=== PATIENT | female | born 1950 | race African-American/Black ===

== ENCOUNTER 2016-06-03 11:37 | Inpatient (IN) | payer MEDICAID ==
[~2016-06-03] VITALS: Ht 162.6 cm; Wt 137.3 kg
[2016-06-03] VITALS (22 sets, daily range): BP systolic 117–242; BP diastolic 57–145; PULSE 76–104; RESP 12–19; TEMP 98.5–99.4; O2SAT 93–100
[~2016-06-03 11:37] MED LIST: ACET325 PO; ALBU25IPRN NEB; ASCO500 PO; ASPI81TA21 PO; ATOR40TA49 PO; AZIT250T74 PO; BISA10R PR; CLOP75 PO; DUONI NEB; FLEEENE3 PR; FOLI1 PO; FURO20 PO; GUAI600 PO; LACT12%T TOPICAL; LEVEMIR SQ; LOSA50TA PO; MAGN1SOL2 PO; METO25 PO; MILKSUS5 PO; NOVOLOGP2 SQ; OXYC5 PO; PROT40TA PO; SENN187 PO; SERT-132 PO; SILV1CRE59 TOP; TAB-TAB PO
[2016-06-03 11:56] LABS: MEAN CORPUSCULAR HGB CONC 29.8 % (32.0-36.0)
[2016-06-03] MEDS ORDERED: methylPREDNISolone SOD SUCC 125 MG/2 ML VIAL IVP ONE (12:00)
[2016-06-03] MEDS: RESP: ALBUTEROL 2.5 MG/IPRATROPIUM 0.5 MG NEB (SCH) INH ×5 (12:03→23:16)
--- NOTE | 2016-06-03 12:08 | PD ---
HPI Chief Complaint: Altered Mental Status Time Seen by Provider: 11:58 Travel History International Travel<30 days: No Contact w/Intl Traveler<30days: No Traveled to known affect area: No History of Present Illness HPI Patient is a 65-year-old female with a history of COPD, DM, CHF, PVD brought by EMS from assisted living facility for altered mental status along with productive cough. Patient has had a cough for 3-4 days. It is productive of thick brown sputum. Has history of COPD and multiple nebulizers have not assisted much. She is usually on 4 L oxygen by nasal cannula continuously and this has had increased to 6 L per the report. Patient reports subjective fevers denies chills, nausea and vomiting. She has diffuse anterior chest pain with cough only. She cannot categorize. She denies any dizziness or syncope. She reports that this morning she was confused and "talking gibberish" for about one hour at 8 AM, she contributes this to having too many nebulizers last evening. Per EMS and nursing staff reports she has been acting "differently "for about one day. 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 Patient denies any acute worsening of this at this time. PFSH Past Medical History Arthritis: Yes (RA) Asthma: No Autoimmune Disease: No Blood Disorders: No Anxiety: Yes Depression: Yes Heart Rhythm Problems: No Cancer: No Cardiac Catheterization: Yes (JUNE 2009) Cardiovascular Problems: Yes High Cholesterol: Yes Chemotherapy: No Chest Pain: Yes Congestive Heart Failure: Yes COPD: No Cerebrovascular Accident: No Coronary Artery Disease: Yes Diabetes: Yes Patient Takes Glucophage: No Diminished Hearing: No Diverticulitis: Yes Endocrine: Yes Gastrointestinal Disorders: Yes GERD: Yes Glaucoma: Yes Genitourinary: No Headaches: No Hepatitis: No Hiatal Hernia: No Hypertension: Yes Immune Disorder: Yes Implanted Vascular Access Dvce: No Kidney Stones: No Medical other: Yes (ARTHRITIS) Musculoskeletal: Yes Neurologic: No Psychiatric: Yes Reproductive: No Respiratory: Yes Migraines: No Myocardial Infarction: Yes Pneumonia: Yes Radiation Therapy: No Renal Failure: No Seizures: No Sickle Cell Disease: No Sleep Apnea: Yes Thyroid Disease: No Ulcer: No Menopausal: Yes Tubal Ligation: Yes Past Surgical History Abdominal Surgery: Yes AICD: No Appendectomy: No Arteriovenous Shunt: No Cardiac Surgery: Yes (STENTS RIGHT ILIAC ARTERY) Section: Yes Cholecystectomy: No Coronary Artery Bypass Graft: No Ear Surgery: No Endocrine Surgery: No Eye Surgery: Yes (CATARACTS) Genitourinary Surgery: No Gynecologic Surgery: Yes (PARTIAL HYSTERECTOMY, CSECTION) Hysterectomy: Yes (PARTIAL) Joint Replacement: No Neurologic Surgery: No Oral Surgery: No Pacemaker: No Thoracic Surgery: No Other Surgery: Yes (CYST REMOVED RT BREAST) Social History Alcohol Use: No Tobacco Use: No Substance Use: No Allergies-Medications (Allergen,Severity, Reaction): Coded Allergies: *MDRO Multi-Drug Resistant Organism (Unverified Adverse Reaction, Unknown , 06/03/16) MRSA PCR positive 06/28/2015 Reported Meds & Prescriptions Reported Meds & Active Scripts Active Reported Xanax (Alprazolam) 0.5 Mg Tab 0.5 Mg PO BID PRN Ferrous Sulfate 325 Mg Tab 325 Mg PO DAILY Novolog Inj (Insulin Aspart) 100 Unit/Ml Inj 2-12 Units SQ ACHS Sliding Scale: if 0-150=0 units, 151-200=2 units, 201-250=4 units, 251-300=8 units, 351-400=10 units, >400=12 units & call Vitamin C (Ascorbic Acid) 500 Mg Tab 500 Mg PO BID Lac-Hydrin (Lactic Acid (Ammonium Lactate)) 12% Lotn 1 Applic TOPICAL DAILY Apply to both lower extremities every evening shift Albuterol Neb (Albuterol Sulfate) 2.5 Mg/3 Ml Neb 2.5 Mg NEB Q2HR PRN Multi-Vitamin/Minerals (Multiple Vitamins W/ Minerals) 1 Tab Tab 1 Tab PO DAILY Oxycodone (Oxycodone HCl) 5 Mg Cap 5 Mg PO Q4H PRN Tylenol Extra Strength (Acetaminophen) 500 Mg Tab 1,000 Mg PO TID PRN Miralax Powder (Polyethylene Glycol 3350 Powder) 17 Gm Powd 17 Gm PO DAILY Mix and dissolve one measuring capful (17 grams) in water,juice,soda, coffee or tea Dulcolax Supp (Bisacodyl) 10 Mg Supp 10 Mg NV DIRECTED PRN Give if no results 1 day after Milk of Mag Citroma Liq (Magnesium Citrate) 300 Ml Liq 300 Ml PO DIRECTED PRN Give if no results 1 day after fleet enema Milk of Magnesia Liq (Magnesium Hydroxide) 400 Mg/5 Ml Susp 30 Ml PO DIRECTED PRN Enema Vdlov-Zi-Dmy (Sodium Phosphates) 1 Valentina Valentina 1 Applic NV DIRECTED PRN Give if no results 1 day after Dulcolax Supp Aspirin Adult Low Strength (Aspirin) 81 Mg Tabdr 81 Mg PO DAILY Atorvastatin (Atorvastatin Calcium) 40 Mg Tab 40 Mg PO HS Sertraline (Sertraline HCl) 50 Mg Tab 50 Mg PO DAILY Folate (Folic Acid) 1 Mg Tab 1 Mg PO DAILY Metoprolol Tartrate 25 Mg Tab 25 Mg PO BID Protonix Liq (Pantoprazole Sodium) 40 Mg Pkt 40 Mg PO DAILY Lasix (Furosemide) 20 Mg Tab 20 Mg PO BID Plavix (Clopidogrel Bisulfate) 75 Mg Tab 75 Mg PO DAILY Senna (Sennosides) 8.6 Mg Cap 17.2 Mg PO BID Losartan (Losartan Potassium) 50 Mg Tab 50 Mg PO BID Januvia (Sitagliptin Phosphate) 50 Mg Tab 50 Mg PO DAILY Levemir Inj (Insulin Detemir) 1,000 unit/ 10 ML Vial 45 Units SQ HS Do not mix with any other Insulin. Silvadene Topical (Silver Sulfadiazine) 1 % Cream 1 Applic TOPICAL DAILY Apply to rt lower leg after nss wash then cover w/dsd every evening shift Review of Systems Except as stated in HPI: all other systems reviewed are Neg Physical Exam Narrative GENERAL: Well-developed and well-nourished adult female in no acute distress. SKIN: Warm and dry. Good turgor without tenting. HEAD: Normocephalic and atraumatic. EYES: PERRL bilaterally, 5mm. EOMI bilaterally. Right amblyopia. No injection or icterus present. No proptosis. Lids without edema or erythema. ENT: Buccal mucosa pink and moist. Oropharynx free of erythema, tonsillar hypertrophy, masses, swelling, asymmetry and exudates. Uvula midline and airway patent. NECK: Supple, no meningeal signs. Trachea midline, no JVD. No cervical or facial lymphadenopathy. CARDIOVASCULAR: Regular rate and rhythm without murmurs, rubs, clicks or gallops. Dorsalis pedis pulses 2+ bilaterally. No pedal edema. RESPIRATORY: Coarse and diminished breath sounds diffusely with scattered rhonchi and wheezing, faint crackles auscultated bilaterally lower lung south. No distress or use of accessory muscles. Speaks in full sentences. No stridor, tripoding or drooling. GASTROINTESTINAL: Non-tender, non-distended. Normal bowel sounds all 4 quadrants. No masses or organomegaly present. MUSCULOSKELETAL: Right calf is atrophic and right foot contracture present. Patient has range of motion in the knee however. There is cirrhosis and chronic skin changes present on the right calf as well as 3 small open wounds without discharge or exudate, to do have some mild associated erythema and warmth without induration or fluctuance. Patient freely moving all four extremities spontaneously. Extremities without clubbing, cyanosis, or edema. NEUROLOGIC: CN II-XII grossly intact. Awake and alert and oriented. Motor grossly within normal limits. Normal speech. PSYCHIATRIC: Appropriate mood and affect; insight and judgment normal. Data Data Last Documented VS Vital Signs Date Time Temp Pulse Resp B/P Pulse Ox O2 Delivery O2 Flow Rate FiO2 06/03/16 13:33 98 35 06/03/16 12:20 96 19 157/73 Nasal Cannula 6 06/03/16 11:42 98.5 Orders Electrocardiogram (06/03/16 11:52) Ammonia (06/03/16 11:52) Complete Blood Count With Diff (06/03/16 11:52) Comprehensive Metabolic Panel (06/03/16 11:52) Prothrombin Time / Inr (Pt) (06/03/16 11:52) Act Partial Throm Time (Ptt) (06/03/16 11:52) Troponin I (06/03/16 11:52) Lactic Acid Sepsis Protocol (06/03/16 11:52) Urinalysis - C+S If Indicated (06/03/16 11:52) Blood Culture (06/03/16 11:52) Chest, Single Ap (06/03/16 11:52) Ct Brain W/O Iv Contrast(Rout) (06/03/16 11:52) Ecg Monitoring (06/03/16 11:52) Iv Access Insert/Monitor (06/03/16 11:52) Oximetry (06/03/16 11:52) B-Type Natriuretic Peptide (06/03/16 11:52) Magnesium (Mg) (06/03/16 11:52) Methylprednisolone So Succ Inj (Solumedr (06/03/16 12:00) Albuterol-Ipratropium Neb (Duoneb Neb) (06/03/16 12:00) Arterial Blood Gas (Abg) (06/03/16 12:14) Cefepime Inj (Maxipime Inj) (06/03/16 13:11) Azithromycin Inj (Zithromax Inj) (06/03/16 13:11) Urine Culture (06/03/16 14:10) Arterial Blood Gas (Abg) (06/03/16 14:27) Ascorbic Acid (Vitamin C) (06/03/16 21:00) Aspirin Ec (Ecotrin Ec) (06/03/16 15:00) Atorvastatin (Lipitor) (06/03/16 21:00) Clopidogrel (Plavix) (06/03/16 15:00) Ferrous Sulfate (Ferrous Sulfate) (06/04/16 09:00) Folic Acid (Folate) (06/04/16 09:00) Multivitamin Hematinic Therap (Theragran (06/04/16 09:00) Admit Order (Ed Use Only) (06/03/16 14:48) Ct Thorax/ Chest Wo Iv Contras (06/03/16 ) Etomidate Inj (Amidate Inj) (06/03/16 15:00) Succinylcholine Inj (Quelicin Inj) (06/03/16 15:00) Sodium Chloride 0.9% Flush (Ns Flush) (06/03/16 15:00) Restraints Non-Violent ELIZ.Q3H (06/03/16 14:49) Angela-Gastric Tube Insert/Mon (06/03/16 14:49) Etomidate Inj (Amidate Inj) (06/03/16 14:52) Admit To Inpatient (06/03/16 ) Code Status (06/03/16 14:50) Vital Signs (Adult) ELIZ.Q1H (06/03/16 14:50) Activity Bed Rest (06/03/16 14:50) ^ Elevate Head Of Bed (06/03/16 14:50) Neuro Checks . ORDERED (06/03/16 14:50) ^ Orogastric Tube (06/03/16 14:50) Pantoprazole Inj (Protonix Inj) (06/03/16 15:00) Albuterol-Ipratropium Neb (Duoneb Neb) (06/03/16 16:00) Albuterol-Ipratropium Neb (Duoneb Neb) (06/03/16 15:00) Complete Blood Count With Diff (06/04/16 04:00) Basic Metabolic Panel (Bmp) (06/04/16 04:00) Magnesium (Mg) (06/04/16 04:00) Sputum Culture And Gram Stain (06/03/16 14:50) Echo 2d Comp W/Dopp(Routine) (06/03/16 ) Heparin Inj (Heparin Inj) (06/03/16 15:00) Scd Bilateral/Knee High ELIZ.BID (06/03/16 14:50) ^ Initiate Protocol (06/03/16 14:50) ^ Instruction (06/03/16 14:50) [facility] (06[facility]03[facility]16 15[facility]) Chlorhexidine 2% Cloth (Chlorhexidine 2% (06/04/16 04:00) Chlorhexidine 2% Cloth (Chlorhexidine 2% (06/03/16 15:00) [facility]sa Pcr Surveillance (06/03/16 14:50) Inpatient Certification (06/03/16 ) Succinylcholine Inj (Quelicin Inj) (06/03/16 14:52) Labs Laboratory Tests Test 06/03/16 06/03/16 06/03/16 06/03/16 12:00 13:10 14:10 14:27 White Blood Count 14.0 TH/MM3 Red Blood Count 5.06 MIL/MM3 Hemoglobin 11.6 GM/DL Hematocrit 39.1 % Mean Corpuscular Volume 77.2 FL Mean Corpuscular Hemoglobin 23.0 PG Mean Corpuscular Hemoglobin 29.8 % Concent Red Cell Distribution Width 15.1 % Platelet Count 268 TH/MM3 Mean Platelet Volume 8.8 FL Neutrophils (%) (Auto) 89.6 % Lymphocytes (%) (Auto) 5.5 % Monocytes (%) (Auto) 4.4 % Eosinophils (%) (Auto) 0.1 % Basophils (%) (Auto) 0.4 % Neutrophils # (Auto) 12.5 TH/MM3 Lymphocytes # (Auto) 0.8 TH/MM3 Monocytes # (Auto) 0.6 TH/MM3 Eosinophils # (Auto) 0.0 TH/MM3 Basophils # (Auto) 0.0 TH/MM3 CBC Comment AUTO DIFF Differential Total Cells 100 Counted Neutrophils % (Manual) 87 % Band Neutrophils % 4 % Lymphocytes % 5 % Monocytes % 2 % Neutrophils # (Manual) 13.0 TH/MM3 Metamyelocytes 2 % Differential Comment AUTO DIFF CONFIRMED Platelet Estimate NORMAL Platelet Morphology Comment NORMAL Red Cell Morphology Comment NORMAL Prothrombin Time 10.5 SEC Prothromb Time International 1.0 RATIO Ratio Activated Partial 26.8 SEC Thromboplast Time Sodium Level 135 MEQ/L Potassium Level 4.5 MEQ/L Chloride Level 94 MEQ/L Carbon Dioxide Level 35.5 MEQ/L Anion Gap 6 MEQ/L Blood Urea Nitrogen 33 MG/DL Creatinine 1.62 MG/DL Estimat Glomerular Filtration 39 ML/MIN Rate Random Glucose 190 MG/DL Lactic Acid Level 0.7 mmol/L Calcium Level 8.6 MG/DL Magnesium Level 2.0 MG/DL Total Bilirubin 0.4 MG/DL Aspartate Amino Transf 12 U/L (AST/SGOT) Alanine Aminotransferase 20 U/L (ALT/SGPT) Alkaline Phosphatase 115 U/L Ammonia 20 MCMOL/L Troponin I LESS THAN 0.02 NG/ML B-Type Natriuretic Peptide 383 PG/ML Total Protein 7.9 GM/DL Albumin 3.1 GM/DL Urine Color YELLOW Urine Turbidity HAZY Urine pH 5.0 Urine Specific Crane 1.013 Urine Protein TRACE mg/dL Urine Glucose (UA) NEG mg/dL Urine Ketones NEG mg/dL Urine Occult Blood NEG Urine Nitrite NEG Urine Bilirubin NEG Urine Urobilinogen LESS THAN 2.0 MG/DL Urine Leukocyte Esterase TRACE Urine RBC 1 /hpf Urine WBC 2 /hpf Urine Squamous Epithelial 1 /hpf Cells Urine Transitional Epithelial <1 /hpf Cells Urine Amorphous Sediment OCC Urine Bacteria FEW /hpf Urine Hyaline Casts 5 /lpf Urine Mucus FEW /lpf Microscopic Urinalysis Comment CATH-CULTURE IND Blood Gas Puncture Site LT RADIAL Blood Gas Patient Temperature 98.6 Blood Gas HCO3 34 mmol/L Blood Gas Base Excess 6.0 mmol/L Blood Gas Oxygen Saturation 90 % Arterial Blood pH 7.21 Arterial Blood Partial 87 mmHg Pressure CO2 Arterial Blood Partial 72 mmHG Pressure O2 Arterial Blood Oxygen Content 14.8 Vol % Arterial Blood 1.0 % Carboxyhemoglobin Arterial Blood Methemoglobin 1.6 % Blood Gas Hemoglobin 11.7 G/DL Oxygen Delivery Device BiPAP IPAP15/[id number] Blood Gas Inspired Oxygen 45 % MDM Medical Decision Making Medical Screen Exam Complete: Yes Emergency Medical Condition: Yes Interpretation(s) EKG: Sinus rhythm rate of 93. Normal intervals and axis. She has biphasic and inverted T waves in leads V2 through V6 which is new, less than 1 mm. These 3 and aVF and inverted T waves which are chronic when compared to previous. Differential Diagnosis Pneumonia versus COPD exacerbation versus CHF exacerbation versus CVA/TIA versus cellulitis versus sepsis versus ACS Narrative Course Patient 65-year-old female with history of COPD, DM, CHF, peripheral vascular disease brought by EMS from assisted living facility staff reports of altered mental status occurring earlier this morning. Patient has had a productive cough for 3-4 days and they have had to increase her oxygen from 4-6 L/m by nasal cannula. The patient reports receiving too many nebulizers and this caused her to be confused and "speaking gibberish" for about one hour at 8 AM this morning. She denies any loss of consciousness or paresthesia or weakness or vision changes. She reports subjective fevers. She is an atrophic right lower extremity secondary to injury as a child and have chronic skin changes as well as open wounds. She is alert and oriented and has no increased work of breathing however her lung sounds are diminished, coarse rhonchi, wheezing rales at the lower bases bilaterally. Patient was given Solu-Medrol, DuoNeb's and ordered EKG, chest x-ray, CT brain and labs including lactic acid, blood cultures and BNP. Chest x-ray shows opacities in the bilateral mid to low lung south concerning for CHF however patient is no pedal edema and has CHF listed in the chart however she has ejection fraction 60-65% noted on echo in October 23, 2015. Given the patient's symptoms of productive cough and CBC revealing a WBC of 14 with a 89% neutrophilia and 4% bands with ANC 13,000 is most likely pneumonia. Confer with Dr. Oneill who also evaluated this patient and agrees, as she comes from a nursing facility patient was given cefepime and azithromycin. ABG showed pH of 7.167 with a PCO2 of 101 and PO2 of 88.5. Bicarbonate 35.2. Patient was started on BiPAP. Repeat ABG showed mild improvement with pH 7.211, PCO2 86.[address] Gamboa have been contacted regarding the patient and recommended CT of the chest and intubation. She was reevaluated and was increasingly somnolent when compared to previous exam. Dr. Oneill perform intubation, please refer to her note for procedure information. Diagnosis Primary Impression: Healthcare-associated pneumonia Additional Impression: Acute hypoxic and hypercarbic respiratory failure Admitting Information Admitting Physician Requests: Admit Condition: Serious Chito Rodriguez III Jun 03, 2016 12:08
[2016-06-03 12:26] LABS: AUTOMATED NEUTROPHIL # 12.5 TH/MM3 (1.8-7.7); BASOPHIL % 0.4 % (0.0-2.0); EOSINOPHIL % 0.1 % (0.0-4.0); HEMATOCRIT 39.1 % (35.0-46.0); LYMPH % 5.5 % (9.0-44.0); LYMPHOCYTE # 0.8 TH/MM3 (1.0-4.8); MEAN CELL VOLUME 77.2 FL (80.0-100.0); MONO % 4.4 % (0.0-8.0); NEUT % 89.6 % (16.0-70.0); PLATELET COUNT 268 TH/MM3 (150-450); RED BLOOD COUNT 5.06 MIL/MM3 (4.00-5.30); RED CELL DISTRIBUTION WIDTH 15.1 % (11.6-17.2)
[2016-06-03 12:27] LABS: HEMO FLAGS AUTO DIFF
[2016-06-03 12:33] LABS: APTT (PATIENT) 26.8 SEC (24.3-30.1); PROTHROMBIN TIME - PATIENT 10.5 SEC (9.8-11.6)
[2016-06-03] MEDS ORDERED: SENN8.6C PO (12:33)
[2016-06-03] MEDS ORDERED: DULC10SU3 PR (12:33)
[2016-06-03] MEDS ORDERED: OXYC1CAP PO (12:33)
[2016-06-03] MEDS ORDERED: PROTPAK PO (12:33)
[2016-06-03] MEDS ORDERED: ATOR40TA16 PO (12:33)
[2016-06-03] MEDS ORDERED: CITRSOL4 PO (12:33)
[2016-06-03] MEDS ORDERED: SERT-132 PO (12:33)
[2016-06-03] MEDS ORDERED: MIRA33504 PO (12:33)
[2016-06-03] MEDS ORDERED: ASPI1TAB91 PO (12:33)
[2016-06-03] MEDS ORDERED: SODIENE9 PR (12:33)
[2016-06-03] MEDS ORDERED: LOSA50TA PO (12:33)
[2016-06-03] MEDS ORDERED: ALBU0.08 NEB (12:33)
[2016-06-03] MEDS ORDERED: LEVEMIR SQ (12:33)
[2016-06-03] MEDS ORDERED: SILV1CRE20 TOPICAL (12:33)
[2016-06-03] MEDS ORDERED: ACET-703 PO (12:33)
[2016-06-03] MEDS ORDERED: PLAV75TA29 PO (12:33)
[2016-06-03] MEDS ORDERED: NOVOLOGSS SQ (12:33)
[2016-06-03] MEDS ORDERED: SITA50 PO (12:33)
[2016-06-03] MEDS ORDERED: FURO1TAB62 PO (12:33)
[2016-06-03] MEDS ORDERED: FOLI1TAB4 PO (12:33)
[2016-06-03] MEDS ORDERED: MULTTAB62 PO (12:33)
[2016-06-03] MEDS ORDERED: VITA500T PO (12:33)
[2016-06-03] MEDS ORDERED: METO25TA3 PO (12:33)
[2016-06-03] MEDS ORDERED: FERR325T PO (12:33)
[2016-06-03] MEDS ORDERED: MILKSUS PO (12:33)
[2016-06-03] MEDS ORDERED: LAC-12LO3 TOPICAL (12:33)
[2016-06-03] MEDS ORDERED: ALPR.5 PO (12:33)
--- NOTE | 2016-06-03 12:58 | RADRPT ---
EXAM DATE/TIME: 06/03/2016 12:19 [facility] COMPARISON: CHEST SINGLE AP, October 24, 2015, 2:05. INDICATIONS : Short of breath, unresponsive. MEDICAL HISTORY : Unresponsive SURGICAL HISTORY : Unresponsive ENCOUNTER: Initial ACUITY: 1 day PAIN SCORE: Non-responsive. LOCATION: Bilateral chest FINDINGS: There is cardiomegaly and increased density in the mid to lower lung zones suspect for airspace disea se most likely on the basis of congestive heart failure. Osseous structures are intact. Aortic calcif ication. CONCLUSION: Probable CHF. Tu White MD on June 03, 2016 at 12:56 Board Certified Radiologist. This report was verified electronically.
--- NOTE | 2016-06-03 13:01 | RADRPT ---
EXAM DATE/TIME: 06/03/2016 12:42 [facility] COMPARISON: CT BRAIN W/O CONTRAST, June 28, 2009, 1:21. INDICATIONS : Altered mental status. RADIATION DOSE: 42.66 CTDIvol (mGy) MEDICAL HISTORY : Cardiovascular disease. Hypertension. SURGICAL HISTORY : None. ENCOUNTER: Initial ACUITY: 1 day PAIN SCALE: Non-responsive LOCATION: cranial TECHNIQUE: Multiple contiguous axial images were obtained of the head. Using automated exposure control and adj ustment of the mA and/or kV according to patient size, radiation dose was kept as low as reasonably a chievable to obtain optimal diagnostic quality images. 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 No signs of acute infarct, hemorrhage, or mass. No fractur es. CONCLUSION: Remote right occipital infarct again noted. Tu White MD on June 03, 2016 at 12:59 Board Certified Radiologist. This report was verified electronically.
[2016-06-03 13:06] LABS: BANDS 4 % (0-6); METAMYELOCYTES 2 % (0-1); PLATELET ESTIMATE SMEAR NORMAL (NORMAL); PLATELET MORPHOLOGY NORMAL (NORMAL); POLYS (SEG NEUTROPHILS) 87 % (16-70); SCAN/DIFF AUTO DIFF CONFIRMED; WBC DIFF SAMPLE 100
[2016-06-03] MEDS ORDERED: CEFEPIME INJ 2,000 MG in SODIUM CHLORIDE 0.9% INJ 100 ML IV STA (13:11)
[2016-06-03] MEDS ORDERED: AZITHROMYCIN INJ 500 MG in SODIUM CHLOR 0.9% 250 ML INJ 250 ML IV STA (13:11)
[2016-06-03 13:46] LABS: ALT (GPT) 20 U/L (10-53); ANION GAP 6 MEQ/L (5-15); AST (GOT) 12 U/L (15-37); BICARBONATE 35.5 MEQ/L (21.0-32.0); BLOOD UREA NITROGEN 33 MG/DL (7-18); CHLORIDE 94 MEQ/L (98-107); GLOMERULAR FILTRATION RATE 39 ML/MIN (>89); POTASSIUM 4.5 MEQ/L (3.5-5.1); SODIUM (NA) 135 MEQ/L (136-145)
[2016-06-03 13:50] LABS: ALKALINE PHOSPHATASE 115 U/L (45-117); TOTAL BILIRUBIN ADULT 0.4 MG/DL (0.2-1.0)
[2016-06-03 14:32] LABS: BACTERIA, URINE FEW /hpf; BLOOD, URINE NEG (NEG); COMMENT (UR) CATH-CULTURE IND; CULTURE IF INDICATED CATH CULTURE IND; GLUCOSE,URINE NEG (NEG); HYALINE CAST, URINE 5 /lpf (RARE); KETONE, URINE NEG (NEG); MUCUS URINE FEW /lpf (OCC); NITRITE,URINE NEG (NEG); SQUAMOUS EPITHELIAL CELL URINE 1 /hpf (0-5); TRANSITIONAL EPI CELLS, URINE <1 /hpf; URINE COLOR YELLOW (YELLW/STRAW)
[2016-06-03 14:42] LABS: BLOOD GAS HCO3 34 mmol/L (22-26); BLOOD GAS METHEMOGLOBIN 1.6 % (0-2); BLOOD GAS O2 HGB SATURATION 90 % (90-100); BLOOD GAS OXYGEN CONTENT 14.8 Vol % (12.0-20.0); BLOOD GAS PCO2 87 mmHg (38-42); BLOOD GAS PO2 72 mmHG (61-120); BLOOD GAS TOTAL HGB 11.7 G/DL (12.0-16.0); CRITICAL VALUE YES; TEMP CORR TO 98.6
[2016-06-03 14:43] LABS: DRAW SITE LT RADIAL; FIO2 45 %; NUMBER OF ARTERIAL PUNCTURES 1; OXYGEN DEVICE BiPAP IPAP15/EPAP5; STAT NO; ULNAR PULSE PRESENT
[2016-06-03] MEDS ORDERED: SUCCINYLCHOLINE CHLORIDE 200 MG/10 ML VIAL ONE (14:52)
[2016-06-03] MEDS ORDERED: ETOMIDATE 40 MG/20 ML VIAL ONE (14:52)
[2016-06-03] MEDS ORDERED: DEXTROSE 50% IN WATER 50 ML VIAL(D50) IV PUSH PRN (15:00)
[2016-06-03] MEDS ORDERED: CHLORHEXIDINE GLUCONATE 2 % 1 PACK (2 CLOTHS) TOP PRN (15:00)
[2016-06-03] MEDS ORDERED: GLUCAGON 1 MG/ML VIAL OTHER PRN (15:00)
[2016-06-03] MEDS ORDERED: ETOMIDATE 20 MG/10 ML VIAL IVP ONE (15:00)
[2016-06-03] MEDS ORDERED: SUCCINYLCHOLINE CHLORIDE 200 MG/10 ML VIAL IVP ONE (15:00)
[2016-06-03] MEDS ORDERED: MISCELLANEOUS NURSING INFORMATION XX SCH (15:00)
[2016-06-03] MEDS ORDERED: SODIUM CHLORIDE 0.9% FLUSH 5 ML FLUSH IVF PRN (15:00)
[2016-06-03] MEDS ORDERED: VANCOMYCIN INJ 1,000 MG in SODIUM CHLOR 0.9% 250 ML INJ 250 ML IV ONE (15:00)
[2016-06-03] MEDS: PANTOPRAZOLE SODIUM 40 MG VIAL IV SCH (15:32)
[2016-06-03] MEDS: HEPARIN SODIUM - SQ 10,000 UNITS/ML VIAL SQ SCH ×2 (15:33→20:52)
[2016-06-03] MEDS: SODIUM CHLOR 0.9% 1000 ML INJ 1,000 ML IV SCH (15:33)
[2016-06-03] MEDS: fentaNYL DRIP 250 ML IV SCH (15:40)
[2016-06-03] MEDS: INSULIN NovoLIN REGULAR SUPPLEMENTAL SCALE SQ SCH ×2 (15:40→21:01)
[2016-06-03] MEDS ORDERED: MIDAZOLAM HCL 5 MG/ML VIAL (1 ML) ONE (15:47)
[2016-06-03] MEDS ORDERED: hydrALAZINE HCL 20 MG/ML VIAL IV PUSH PRN (16:00)
[2016-06-03] MEDS ORDERED: PROPOFOL 1000 MG/100 ML INJ 100 ML IV SCH (16:00)
[2016-06-03] MEDS: PIPERACIL-TAZO 3.375 GM PREMIX 50 ML IV SCH ×2 (16:00→20:49)
--- NOTE | 2016-06-03 16:13 | PD ---
Data Data Last Documented VS Vital Signs Date Time Temp Pulse Resp B/P Pulse Ox O2 Delivery O2 Flow Rate FiO2 06/03/16 13:33 98 35 06/03/16 12:20 96 19 157/73 Nasal Cannula 6 06/03/16 11:42 98.5 Orders Electrocardiogram (06/03/16 11:52) Ammonia (06/03/16 11:52) Complete Blood Count With Diff (06/03/16 11:52) Comprehensive Metabolic Panel (06/03/16 11:52) Prothrombin Time / Inr (Pt) (06/03/16 11:52) Act Partial Throm Time (Ptt) (06/03/16 11:52) Troponin I (06/03/16 11:52) Lactic Acid Sepsis Protocol (06/03/16 11:52) Urinalysis - C+S If Indicated (06/03/16 11:52) Blood Culture (06/03/16 11:52) Chest, Single Ap (06/03/16 11:52) Ct Brain W/O Iv Contrast(Rout) (06/03/16 11:52) Ecg Monitoring (06/03/16 11:52) Iv Access Insert/Monitor (06/03/16 11:52) Oximetry (06/03/16 11:52) B-Type Natriuretic Peptide (06/03/16 11:52) Magnesium (Mg) (06/03/16 11:52) Methylprednisolone So Succ Inj (Solumedr (06/03/16 12:00) Albuterol-Ipratropium Neb (Duoneb Neb) (06/03/16 12:00) Arterial Blood Gas (Abg) (06/03/16 12:14) Cefepime Inj (Maxipime Inj) (06/03/16 13:11) Azithromycin Inj (Zithromax Inj) (06/03/16 13:11) Urine Culture (06/03/16 14:10) Arterial Blood Gas (Abg) (06/03/16 14:27) Ascorbic Acid (Vitamin C) (06/03/16 21:00) Aspirin Ec (Ecotrin Ec) (06/03/16 15:00) Atorvastatin (Lipitor) (06/03/16 21:00) Clopidogrel (Plavix) (06/03/16 15:00) Ferrous Sulfate (Ferrous Sulfate) (06/04/16 09:00) Folic Acid (Folate) (06/04/16 09:00) Multivitamin Hematinic Therap (Theragran (06/04/16 09:00) Admit Order (Ed Use Only) (06/03/16 14:48) Ct Thorax/ Chest Wo Iv Contras (06/03/16 ) Etomidate Inj (Amidate Inj) (06/03/16 15:00) Succinylcholine Inj (Quelicin Inj) (06/03/16 15:00) Sodium Chloride 0.9% Flush (Ns Flush) (06/03/16 15:00) Restraints Non-Violent ELIZ.Q3H (06/03/16 14:49) Angela-Gastric Tube Insert/Mon (06/03/16 14:49) Etomidate Inj (Amidate Inj) (06/03/16 14:52) Admit To Inpatient (06/03/16 ) Code Status (06/03/16 14:50) Vital Signs (Adult) ELIZ.Q1H (06/03/16 14:50) Activity Bed Rest (06/03/16 14:50) ^ Elevate Head Of Bed (06/03/16 14:50) Neuro Checks . ORDERED (06/03/16 14:50) ^ Orogastric Tube (06/03/16 14:50) Pantoprazole Inj (Protonix Inj) (06/03/16 15:00) Albuterol-Ipratropium Neb (Duoneb Neb) (06/03/16 16:00) Albuterol-Ipratropium Neb (Duoneb Neb) (06/03/16 15:00) Complete Blood Count With Diff (06/04/16 04:00) Basic Metabolic Panel (Bmp) (06/04/16 04:00) Magnesium (Mg) (06/04/16 04:00) Sputum Culture And Gram Stain (06/03/16 14:50) Echo 2d Comp W/Dopp(Routine) (06/03/16 ) Heparin Inj (Heparin Inj) (06/03/16 15:00) Scd Bilateral/Knee High ELIZ.BID (06/03/16 14:50) ^ Initiate Protocol (06/03/16 14:50) ^ Instruction (06/03/16 14:50) [facility] [place] (06/03/16 15:00) Chlorhexidine 2% Cloth (Chlorhexidine 2% (06/04/16 04:00) Chlorhexidine 2% Cloth (Chlorhexidine 2% (06/03/16 15:00) [facility]sa Pcr Surveillance (06/03/16 14:50) Inpatient Certification (06/03/16 ) Succinylcholine Inj (Quelicin Inj) (06/03/16 14:52) Labs Laboratory Tests Test 06/03/16 06/03/16 06/03/16 06/03/16 12:00 13:10 14:10 14:27 White Blood Count 14.0 TH/MM3 Red Blood Count 5.06 MIL/MM3 Hemoglobin 11.6 GM/DL Hematocrit 39.1 % Mean Corpuscular Volume 77.2 FL Mean Corpuscular Hemoglobin 23.0 PG Mean Corpuscular Hemoglobin 29.8 % Concent Red Cell Distribution Width 15.1 % Platelet Count 268 TH/MM3 Mean Platelet Volume 8.8 FL Neutrophils (%) (Auto) 89.6 % Lymphocytes (%) (Auto) 5.5 % Monocytes (%) (Auto) 4.4 % Eosinophils (%) (Auto) 0.1 % Basophils (%) (Auto) 0.4 % Neutrophils # (Auto) 12.5 TH/MM3 Lymphocytes # (Auto) 0.8 TH/MM3 Monocytes # (Auto) 0.6 TH/MM3 Eosinophils # (Auto) 0.0 TH/MM3 Basophils # (Auto) 0.0 TH/MM3 CBC Comment AUTO DIFF Differential Total Cells 100 Counted Neutrophils % (Manual) 87 % Band Neutrophils % 4 % Lymphocytes % 5 % Monocytes % 2 % Neutrophils # (Manual) 13.0 TH/MM3 Metamyelocytes 2 % Differential Comment AUTO DIFF CONFIRMED Platelet Estimate NORMAL Platelet Morphology Comment NORMAL Red Cell Morphology Comment NORMAL Prothrombin Time 10.5 SEC Prothromb Time International 1.0 RATIO Ratio Activated Partial 26.8 SEC Thromboplast Time Sodium Level 135 MEQ/L Potassium Level 4.5 MEQ/L Chloride Level 94 MEQ/L Carbon Dioxide Level 35.5 MEQ/L Anion Gap 6 MEQ/L Blood Urea Nitrogen 33 MG/DL Creatinine 1.62 MG/DL Estimat Glomerular Filtration 39 ML/MIN Rate Random Glucose 190 MG/DL Lactic Acid Level 0.7 mmol/L Calcium Level 8.6 MG/DL Magnesium Level 2.0 MG/DL Total Bilirubin 0.4 MG/DL Aspartate Amino Transf 12 U/L (AST/SGOT) Alanine Aminotransferase 20 U/L (ALT/SGPT) Alkaline Phosphatase 115 U/L Ammonia 20 MCMOL/L Troponin I LESS THAN 0.02 NG/ML B-Type Natriuretic Peptide 383 PG/ML Total Protein 7.9 GM/DL Albumin 3.1 GM/DL Urine Color YELLOW Urine Turbidity HAZY Urine pH 5.0 Urine Specific Brewster 1.013 Urine Protein TRACE mg/dL Urine Glucose (UA) NEG mg/dL Urine Ketones NEG mg/dL Urine Occult Blood NEG Urine Nitrite NEG Urine Bilirubin NEG Urine Urobilinogen LESS THAN 2.0 MG/DL Urine Leukocyte Esterase TRACE Urine RBC 1 /hpf Urine WBC 2 /hpf Urine Squamous Epithelial 1 /hpf Cells Urine Transitional Epithelial <1 /hpf Cells Urine Amorphous Sediment OCC Urine Bacteria FEW /hpf Urine Hyaline Casts 5 /lpf Urine Mucus FEW /lpf Microscopic Urinalysis Comment CATH-CULTURE IND Blood Gas Puncture Site LT RADIAL Blood Gas Patient Temperature 98.6 Blood Gas HCO3 34 mmol/L Blood Gas Base Excess 6.0 mmol/L Blood Gas Oxygen Saturation 90 % Arterial Blood pH 7.21 Arterial Blood Partial 87 mmHg Pressure CO2 Arterial Blood Partial 72 mmHG Pressure O2 Arterial Blood Oxygen Content 14.8 Vol % Arterial Blood 1.0 % Carboxyhemoglobin Arterial Blood Methemoglobin 1.6 % Blood Gas Hemoglobin 11.7 G/DL Oxygen Delivery Device BiPAP IPAP15/[id number] Blood Gas Inspired Oxygen 45 % MDM Supervised Visit with MARLYN: Yes Narrative Course The history, exam, and medical decision-making in the associated midlevel provider note were completed with my assistance. I reviewed and agree with the findings presented. I attest that I had a [id number] encounter with the patient on the same day, and personally performed and documented my assessment and findings in the medical record. *My assessment and Findings: This is a 65-year-old female who was a history of COPD and congestive heart failure who presents to the emergency department with increasing shortness of breath and difficulty breathing over the past several days as well as some confusion reported by her care home. The patient awakens and answers questions but is somnolent. She was found to be quite hypercarbic. She was started on BiPAP. Repeat blood gas was improved but her mental status appeared worse. Decision was made to intubate the patient for safety. Patient has evidence of consolidation on chest x-ray consistent with likely pneumonia. She was given cefepime and azithromycin cover for healthcare associated pneumonia. Patient will be admitted to the intensive care unit for further management. Procedures Procedure Narrative After the risks and benefits were discussed the following procedure was performed: INTUBATION: The patient was put in optimal position for the procedure. Rapid sequence intubation was initiated by me using 30 milligrams of etomidate IV and 120 milligrams of succinylcholine IV. The patient was intubated with a 7.5 cuffed endotracheal tube. Tube placement was confirmed by visualization of the tube and balloon passing through the cords, capnometry and subsequent chest x- ray. Breath sounds were equal and well aerated bilaterally postintubation. No breath sounds over stomach. Patient tolerated procedure well. Diagnosis Primary Impression: Healthcare-associated pneumonia Additional Impression: Acute hypoxic and hypercarbic respiratory failure Condition: Serious Kathya Oneill MD Jun 03, 2016 16:13
[2016-06-03] MEDS ORDERED: MIDAZOLAM HCL 2 MG/2 ML VIAL IV PUSH ONE (16:30)
--- NOTE | 2016-06-03 16:55 | RADRPT ---
EXAM DATE/TIME: 06/03/2016 16:25 [facility] COMPARISON: CHEST SINGLE AP, June 03, 2016, 12:19. INDICATIONS : Post intubation. MEDICAL HISTORY : None. SURGICAL HISTORY : None. ENCOUNTER: Initial ACUITY: 1 day PAIN SCORE: Non-responsive. LOCATION: Bilateral chest FINDINGS: Basilar and perihilar predominant bilateral consolidation with probable small effusions again noted, not significantly changed. I don't see a pneumothorax. Patient is now intubated. Endotracheal tube tip is about 2.6 cm above the teresita. There is a nasogast kiah tube coursing into the stomach. CONCLUSION: 1. Endotracheal tube tip about 2.6 cm above the teresita. 2. Nasogastric tube courses into the stomach. 3. No significant change bilateral perihilar and basilar consolidation with small effusions. Chito Arellano MD on June 03, 2016 at 16:52 Board Certified Radiologist. This report was verified electronically.
[2016-06-03] MEDS ORDERED: BUMETANIDE INJ 1 MG/4 ML VIAL IV PUSH ONE (17:00)
--- NOTE | 2016-06-03 17:00 | MH ---
cc: CHARLI DOWNS M.D. DATE OF ADMISSION 06/03/2016 DATE OF 1950 HISTORY OF THE PRESENT ILLNESS the patient is 65-year-old female with past medical history of COPD, diabetes mellitus, peripheral vascular disease, rheumatoid arthritis, questionable CHF who was brought in to [facility] ED via EMS from assisted living facility for altered mental status and productive cough. The patient has had a history of productive cough for the past 3-4 days with thick brown phlegm. [facility] which was increased to 6 liters per report. No history of any chills or constitutional symptoms. This morning the patient was confused. ABG was performed on a BiPap which showed acute hypercapnic respiratory acidosis with a pH of 7.21, CO2 87, pAO2 72 and sat of 90%. The patient remained lethargic, unresponsive on a BiPap and she was subsequently intubated with etomidate, succinylcholine and placed on full mechanical ventilation. On arrival she had a blood pressure of 157/73 with a pulse of 96. Laboratory data significant for leukocytosis with a WBC of 14.0. Her CMP showed mild acute kidney injury with creatinine level of 1.62 and potassium of 4.5. Her lactic acid level measured at 0.7. BNP is 383. Due to altered mental status, CT scan of the brain was performed which showed remote right occipital infarct. A chest x-ray prior to intubation showed diffuse bilateral pulmonary infiltrates, cardiomegaly. In the ED she was given Solu-Medrol 125 mg IV push, bronchodilator treatment, cefepime and azithromycin. CT scan of the chest has been ordered by the ED staff. PAST MEDICAL HISTORY Significant for: 1. Rheumatoid arthritis. 2. COPD. 3. Diabetes mellitus. 4. Questionable congestive heart failure. Echocardiogram from October 2015 showed an EF of 60-65% without any regional wall motion abnormalities. 5. History of peripheral vascular disease. 6. Gastroesophageal reflux disease. 7. Obstructive sleep apnea. 8. Morbid obesity. 9. History of anxiety / depression. PAST SURGICAL HISTORY 1. Previous stent right iliac artery. 2. Previous cataract surgery. 3. Previous and partial hysterectomy. ALLERGIES NO KNOWN DRUG ALLERGIES. SOCIAL HISTORY [facility] resident. Nonsmoker, nondrinker. MEDICATIONS Reported medications include: 1. Levemir. 2. . 3. Losartan. 4. Senna. 5. Lasix. 6. Metoprolol. 7. Sertraline. 8. Aspirin. 9. Atorvastatin. 10. Vitamin C. 11. Ferrous sulfate. 12. Insulin. 13. Xanax p.r.n. FAMILY HISTORY Noncontributory. REVIEW OF SYSTEMS As per HPI. The rest of the review of systems limited secondary to patient's mental status. PHYSICAL EXAMINATION GENERAL: A 65-year-old female intubated for acute hypercapnic respiratory failure. VITAL SIGNS: Temperature of 98.5 pulse of 98, blood pressure prior to intubation 136/63 with a saturation of 97-100%. Vent setting assist control rate of 16, tidal volume 550, PEEP of 5, FIO2 50%. HEENT: Atraumatic, normocephalic. Pupils equal, round and reactive to light and accommodation. Extraocular muscles intact. Conjunctivae pink. Nonicteric sclerae. Oral mucosa within normal. NECK: Supple. No JVD, adenopathy or thyromegaly. Trachea midline. Orally intubated. CARDIOVASCULAR: Regular rate and rhythm. Normal S1-S2. No murmurs, rubs or gallops noted. LUNGS: Pulmonary exam bilateral equal air entry. No rales or wheezing. ABDOMEN: Soft, obese, nontender, no distension. Positive bowel sounds. EXTREMITIES: No cyanosis, clubbing or edema. NEUROLOGICAL: No focal sensory deficit. LABORATORY DATA Sodium of 135, potassium 4.5, chloride 94, CO2 35, BUN 33, creatinine 1.62, glucose of 190. Lactic acid 0.7. WBC 14, hemoglobin 11.6, hematocrit 39, platelet count 268. INR 1.0. PT 10.5, PTT 26.8. IMAGING CT scan of the brain showed remote right occipital infarct. X-ray showed bilateral pulmonary infiltrates. IMPRESSION 1. Acute hypercapnic respiratory failure requiring intubation. 2. COPD. 3. Leukocytosis. 4. Diffuse bilateral pulmonary infiltrates. Differential diagnosis fluid overload versus infectious process. 5. Mild acute kidney injury. 6. Hyperglycemia with underlying history of diabetes mellitus. 7. Peripheral vascular disease. 8. Hyponatremia. 9. Morbid obesity. 10. Hypertension. RECOMMENDATIONS 1. Place on fentanyl infusion for sedation and daily sedation vacation. Monitor neuro status closely. A CT scan of the brain in the ED showed remote right occipital infarct. 2. Continue with vent support and maintain sats above 92%. 3. Bronchodilators in the form of DuoNeb q.6h. Will initiate ICU vent bundle. 4. Check chest x-ray and ABG postintubation. 5. The patient is for CT scan of the chest without contrast for further evaluation of pulmonary parenchyma. 6. Monitor heart rate and blood pressure closely and maintain MAP greater 65 mmHg. 7. We will obtain a 2-D echo to evaluate LV function. She had an echo back in October of 2015 which showed an EF 60-65% without any regional wall motion abnormalities. 8. Continue with aspirin and Plavix and hold antihypertensive meds for now. 9. Monitor renal function Is and Os and electrolyte replacement as needed. 10. Gentle IV hydration. We will place on normal saline at 42 ml an hour. 11. Keep n.p.o. and place on Protonix 40 mg IV daily for GI prophylaxis. 12. Start nutrition support in the next 24 hours if remains intubated. 13. Continue with antibiotics in the form of Zosyn and azithromycin. In addition we will give vancomycin 1 gram x1 dose now. Of note the patient was given cefepime and azithromycin in the ED. 14. Follow-up on blood and urine cultures which were performed in the ED. We will check a sputum culture with gram stain and we will obtain a strep pneumoniae and Legionella urinary antigen. 15. We will send nasal washing to rule out influenza as well. 16. Monitor CBC and continue with ferrous sulfate, folic acid and multivitamins. 17. Place on sliding scale insulin with Accu-Cheks for glycemic control. 18. GI prophylaxis with Protonix 40 mg daily and DVT prophylaxis with SCDs and heparin subcu. 19. Further recommendations will be based on hospital course. 20. Critical care time 60 minutes excluding procedures. MD HEIDI Yang/ELANA /3:41 PM /4:29 PM
[2016-06-03 17:16] LABS: BLOOD GAS BASE EXCESS 4.3 mmol/L (-2-2); BLOOD GAS CARBOXYHEMOGLOBIN 0.9 % (0-4); BLOOD GAS HCO3 29 mmol/L (22-26); BLOOD GAS METHEMOGLOBIN 1.4 % (0-2); BLOOD GAS O2 HGB SATURATION 90 % (90-100); BLOOD GAS OXYGEN CONTENT 15.1 Vol % (12.0-20.0); BLOOD GAS PCO2 53 mmHg (38-42); BLOOD GAS PO2 66 mmHG (61-120); BLOOD GAS TOTAL HGB 11.9 G/DL (12.0-16.0); TEMP CORR TO 98.6
[2016-06-03 17:20] LABS: CRITICAL VALUE YES; DRAW SITE RT RADIAL; FIO2 50 %; NUMBER OF ARTERIAL PUNCTURES 1; OXYGEN DEVICE VENTILATOR; STAT NO; ULNAR PULSE PRESENT; VENT SETTINGS AC/16/550/PEEP5
[2016-06-03] MEDS: ASPIRIN EC 81 MG TABEC PO SCH (17:34)
[2016-06-03] MEDS: CLOPIDOGREL 75 MG TAB PO SCH (17:34)
[2016-06-03 19:54] LABS: BLOOD GAS BASE EXCESS 6.9 mmol/L (-2-2); BLOOD GAS CARBOXYHEMOGLOBIN 0.9 % (0-4); BLOOD GAS HCO3 35 mmol/L (22-26); BLOOD GAS METHEMOGLOBIN 1.7 % (0-2); BLOOD GAS O2 HGB SATURATION 91 % (90-100); BLOOD GAS OXYGEN CONTENT 15.7 Vol % (12.0-20.0); BLOOD GAS PCO2 101 mmHg (38-42); BLOOD GAS PO2 89 mmHG (61-120); BLOOD GAS TOTAL HGB 12.1 G/DL (12.0-16.0); TEMP CORR TO 98.6
[2016-06-03 19:55] LABS: CRITICAL VALUE YES; DRAW SITE RT RADIAL; FIO2 44 %; LITER FLOW 6 L/M; NUMBER OF ARTERIAL PUNCTURES 1; OXYGEN DEVICE NASAL CANNULA; STAT YES; ULNAR PULSE PRESENT
--- NOTE | 2016-06-03 19:55 | RADRPT ---
EXAM DATE/TIME: 06/03/2016 18:53 [facility] COMPARISON: No previous studies available for comparison. INDICATIONS : Cough and congestion. RADIATION DOSE: 19.88 CTDIvol (mGy) MEDICAL HISTORY : Sepsis. Congestive heart failure. SURGICAL HISTORY : None. ENCOUNTER: Initial ACUITY: 1 day PAIN SCALE: 5/10 LOCATION: Bilateral chest TECHNIQUE: Volumetric scanning of the chest was performed. Using automated exposure control and adjustment of t he mA and/or kV according to patient size, radiation dose was kept as low as reasonably achievable to obtain optimal diagnostic quality images. FINDINGS: There is patchy airspace consolidation of both mid and lower lungs, right greater than left and espec ially the right lower lobe. There is a tiny right pleural effusion. No pneumothorax. Limited noncontrast study without convincing evidence of hilar mass or lymphadenopathy. No media stinal adenopathy seen. There is biventricular enlargement of the heart and coronary artery calcifica tion. No acute bony abnormality demonstrated. CONCLUSION: Patchy pneumonia of both lung bases, especially the right lower lobe. Chito Arellano MD on June 03, 2016 at 19:52 Board Certified Radiologist. This report was verified electronically.
[2016-06-03] MEDS: ASCORBIC ACID 500 MG TAB PO SCH (20:48)
[2016-06-03] MEDS: ATORVASTATIN 40 MG TAB PO SCH (20:48)
[2016-06-03] MEDS: CHLORHEXIDINE 0.12% (ORAL KIT) 15 ML CUP MT SCH (20:49)
[2016-06-04] VITALS (19 sets, daily range): BP systolic 101–158; BP diastolic 46–70; PULSE 71–95; RESP 12–16; TEMP 98.1–99; O2SAT 91–99
[2016-06-04] MEDS: fentaNYL DRIP 250 ML IV SCH ×2 (00:26→10:21)
[2016-06-04] MEDS: RESP: ALBUTEROL 2.5 MG/IPRATROPIUM 0.5 MG NEB (SCH) INH ×6 (03:22→23:31)
[2016-06-04] MEDS: PIPERACIL-TAZO 3.375 GM PREMIX 50 ML IV SCH ×4 (03:38→20:07)
[2016-06-04] MEDS: CHLORHEXIDINE GLUCONATE 2 % 1 PACK (2 CLOTHS) TOP SCH ×2 (03:43→20:07)
[2016-06-04] MEDS: INSULIN NovoLIN REGULAR SUPPLEMENTAL SCALE SQ SCH ×4 (03:43→20:06)
[2016-06-04 04:44] LABS: AUTOMATED NEUTROPHIL # 8.8 TH/MM3 (1.8-7.7); BASOPHIL % 0.3 % (0.0-2.0); HEMATOCRIT 34.8 % (35.0-46.0); LYMPH % 10.5 % (9.0-44.0); LYMPHOCYTE # 1.2 TH/MM3 (1.0-4.8); MEAN CELL VOLUME 75.9 FL (80.0-100.0); MEAN CORPUSCULAR HEMOGLOBIN 23.2 PG (27.0-34.0); MEAN CORPUSCULAR HGB CONC 30.5 % (32.0-36.0); MONO % 9.1 % (0.0-8.0); NEUT % 80.1 % (16.0-70.0); PLATELET COUNT 256 TH/MM3 (150-450); RED BLOOD COUNT 4.59 MIL/MM3 (4.00-5.30)
[2016-06-04 04:45] LABS: HEMO FLAGS AUTO DIFF
[2016-06-04 05:08] LABS: MAGNESIUM 1.9 MG/DL (1.5-2.5); POTASSIUM 4.3 MEQ/L (3.5-5.1)
[2016-06-04] MEDS: HEPARIN SODIUM - SQ 10,000 UNITS/ML VIAL SQ SCH ×3 (05:41→20:07)
[2016-06-04 08:25] LABS: PLATELET ESTIMATE SMEAR NORMAL (NORMAL); PLATELET MORPHOLOGY NORMAL (NORMAL); SCAN/DIFF AUTO DIFF CONFIRMED
--- NOTE | 2016-06-04 08:56 | HHI.CCPN ---
Subjective Remarks/Hospital Course Patient is 65-year-old female with past medical history of COPD, diabetes mellitus, peripheral vascular disease, rheumatoid arthritis, questionable CHF who was brought in to [facility] ED via EMS from assisted living facility for altered mental status and productive cough. The patient has had a history of productive cough for the past 3-4 days with thick brown phlegm. She is usually on [facility] lit[facility] the [facility] continuously which was increased to 6 liters per report. No history of any chills or constitutional symptoms. This morning the patient was confused. ABG was performed on a BiPap which showed acute hypercapnic respiratory acidosis with a pH of 7.21, CO2 87, pAO2 72 and sat of 90%. The patient remained lethargic, unresponsive on a BiPap and she was subsequently intubated with etomidate, succinylcholine and placed on full mechanical ventilation. On arrival she had a blood pressure of 157/73 with a pulse of 96. Laboratory data significant for leukocytosis with a WBC of 14.0. Her CMP showed mild acute kidney injury with creatinine level of 1.62 and potassium of 4.5. Her lactic acid level measured at 0.7. BNP is 383. Due to altered mental status, CT scan of the brain was performed which showed remote right occipital infarct. A chest x-ray prior to intubation showed diffuse bilateral pulmonary infiltrates, cardiomegaly. In the ED she was given Solu-Medrol 125 mg IV push, bronchodilator treatment, cefepime and azithromycin. CT scan of the chest has been ordered by the ED staff. 06/04 No acute events overnight. Sedated with Fentanyl and intubated. CT chest from yesterday showed pneumonia. Afebrile. Objective Vital Signs Date Time Temp Pulse Resp B/P Pulse Ox O2 Delivery O2 Flow Rate FiO2 06/04/16 06:00 80 06/04/16 04:04 94 50 06/04/16 04:00 98.6 12 158/70 06/03/16 17:30 Ventilator 06/03/16 12:20 6.00 Intake and Output 06/03/16 06/03/16 06/04/16 08:00 16:00 00:00 Intake Total 290 ml Output Total 1150 ml Balance -860 ml Result Diagram: 06/04/16 0407 06/04/16 0407 Other Results Laboratory Tests Test 06/03/16 06/03/16 06/03/16 06/03/16 12:00 12:54 13:10 14:10 White Blood Count 14.0 TH/MM3 Red Blood Count 5.06 MIL/MM3 Hemoglobin 11.6 GM/DL Hematocrit 39.1 % Mean Corpuscular Volume 77.2 FL Mean Corpuscular Hemoglobin 23.0 PG Mean Corpuscular Hemoglobin 29.8 % Concent Red Cell Distribution Width 15.1 % Platelet Count 268 TH/MM3 Mean Platelet Volume 8.8 FL Neutrophils (%) (Auto) 89.6 % Lymphocytes (%) (Auto) 5.5 % Monocytes (%) (Auto) 4.4 % Eosinophils (%) (Auto) 0.1 % Basophils (%) (Auto) 0.4 % Neutrophils # (Auto) 12.5 TH/MM3 Lymphocytes # (Auto) 0.8 TH/MM3 Monocytes # (Auto) 0.6 TH/MM3 Eosinophils # (Auto) 0.0 TH/MM3 Basophils # (Auto) 0.0 TH/MM3 CBC Comment AUTO DIFF Differential Total Cells 100 Counted Neutrophils % (Manual) 87 % Band Neutrophils % 4 % Lymphocytes % 5 % Monocytes % 2 % Neutrophils # (Manual) 13.0 TH/MM3 Metamyelocytes 2 % Differential Comment AUTO DIFF CONFIRMED Platelet Estimate NORMAL Platelet Morphology Comment NORMAL Red Cell Morphology Comment NORMAL Prothrombin Time 10.5 SEC Prothromb Time International 1.0 RATIO Ratio Activated Partial 26.8 SEC Thromboplast Time Blood Gas Puncture Site RT RADIAL Blood Gas Patient Temperature 98.6 Blood Gas HCO3 35 mmol/L Blood Gas Base Excess 6.9 mmol/L Blood Gas Oxygen Saturation 91 % Arterial Blood pH 7.17 Arterial Blood Partial 101 mmHg Pressure CO2 Arterial Blood Partial 89 mmHG Pressure O2 Arterial Blood Oxygen Content 15.7 Vol % Arterial Blood 0.9 % Carboxyhemoglobin Arterial Blood Methemoglobin 1.7 % Blood Gas Hemoglobin 12.1 G/DL Oxygen Delivery Device NASAL CANNULA Blood Gas Liter Flow 6 L/M Blood Gas Inspired Oxygen 44 % Sodium Level 135 MEQ/L Potassium Level 4.5 MEQ/L Chloride Level 94 MEQ/L Carbon Dioxide Level 35.5 MEQ/L Anion Gap 6 MEQ/L Blood Urea Nitrogen 33 MG/DL Creatinine 1.62 MG/DL Estimat Glomerular Filtration 39 ML/MIN Rate Random Glucose 190 MG/DL Lactic Acid Level 0.7 mmol/L Calcium Level 8.6 MG/DL Magnesium Level 2.0 MG/DL Total Bilirubin 0.4 MG/DL Aspartate Amino Transf 12 U/L (AST/SGOT) Alanine Aminotransferase 20 U/L (ALT/SGPT) Alkaline Phosphatase 115 U/L Ammonia 20 MCMOL/L Troponin I LESS THAN 0.02 NG/ML B-Type Natriuretic Peptide 383 PG/ML Total Protein 7.9 GM/DL Albumin 3.1 GM/DL Urine Color YELLOW Urine Turbidity HAZY Urine pH 5.0 Urine Specific [place] 1.013 Urine Protein TRACE mg/dL Urine Glucose (UA) NEG mg/dL Urine Ketones NEG mg/dL Urine Occult Blood NEG Urine Nitrite NEG Urine Bilirubin NEG Urine Urobilinogen LESS THAN 2.0 MG/DL Urine Leukocyte Esterase TRACE Urine RBC 1 /hpf Urine WBC 2 /hpf Urine Squamous Epithelial 1 /hpf Cells Urine Transitional Epithelial <1 /hpf Cells Urine Amorphous Sediment OCC Urine Bacteria FEW /hpf Urine Hyaline Casts 5 /lpf Urine Mucus FEW /lpf Microscopic Urinalysis Comment CATH-CULTURE IND Test 06/03/16 06/03/16 06/03/16 06/04/16 14:27 17:11 19:15 04:07 Blood Gas Puncture Site LT RADIAL RT RADIAL Blood Gas Patient Temperature 98.6 98.6 Blood Gas HCO3 34 mmol/L 29 mmol/L Blood Gas Base Excess 6.0 mmol/L 4.3 mmol/L Blood Gas Oxygen Saturation 90 % 90 % Arterial Blood pH 7.21 7.36 Arterial Blood Partial 87 mmHg 53 mmHg Pressure CO2 Arterial Blood Partial 72 mmHG 66 mmHG Pressure O2 Arterial Blood Oxygen Content 14.8 Vol % 15.1 Vol % Arterial Blood 1.0 % 0.9 % Carboxyhemoglobin Arterial Blood Methemoglobin 1.6 % 1.4 % Blood Gas Hemoglobin 11.7 G/DL 11.9 G/DL Oxygen Delivery Device BiPAP VENTILATOR [id number] Blood Gas Inspired Oxygen 45 % 50 % Blood Gas Ventilator Setting [id number] Nasal Screen MRSA (PCR) POSITIVE White Blood Count 11.0 TH/MM3 Red Blood Count 4.59 MIL/MM3 Hemoglobin 10.6 GM/DL Hematocrit 34.8 % Mean Corpuscular Volume 75.9 FL Mean Corpuscular Hemoglobin 23.2 PG Mean Corpuscular Hemoglobin 30.5 % Concent Red Cell Distribution Width 15.0 % Platelet Count 256 TH/MM3 Mean Platelet Volume 9.1 FL Neutrophils (%) (Auto) 80.1 % Lymphocytes (%) (Auto) 10.5 % Monocytes (%) (Auto) 9.1 % Eosinophils (%) (Auto) 0.0 % Basophils (%) (Auto) 0.3 % Neutrophils # (Auto) 8.8 TH/MM3 Lymphocytes # (Auto) 1.2 TH/MM3 Monocytes # (Auto) 1.0 TH/MM3 Eosinophils # (Auto) 0.0 TH/MM3 Basophils # (Auto) 0.0 TH/MM3 CBC Comment AUTO DIFF Differential Comment AUTO DIFF CONFIRMED Platelet Estimate NORMAL Platelet Morphology Comment NORMAL Sodium Level 137 MEQ/L Potassium Level 4.3 MEQ/L Chloride Level 97 MEQ/L Carbon Dioxide Level 33.0 MEQ/L Anion Gap 7 MEQ/L Blood Urea Nitrogen 35 MG/DL Creatinine 1.35 MG/DL Estimat Glomerular Filtration 48 ML/MIN Rate Random Glucose 195 MG/DL Calcium Level 8.0 MG/DL Magnesium Level 1.9 MG/DL Imaging Last Impressions Head CT 06/03/16 1152 Signed Impressions: Service Date/Time: Friday, June 03, 2016 12:42 - CONCLUSION: Remote right occipital infarct again noted. Tu White MD Chest X-Ray 06/03/16 1152 Signed Impressions: Service Date/Time: Friday, June 03, 2016 12:19 - CONCLUSION: Probable CHF. Tu White MD Chest CT 06/03/16 0000 Signed Impressions: Service Date/Time: Friday, June 03, 2016 18:53 - CONCLUSION: Patchy pneumonia of both lung bases, especially the right lower lobe. Chito Arellano MD Objective Remarks GENERAL: Patient is 65yo intubated and sedated SKIN: Warm and dry. HEAD: Normocephalic. EYES: No scleral icterus. No injection or drainage. NECK: Supple, trachea midline. No JVD or lymphadenopathy. CARDIOVASCULAR: Regular rate and rhythm without murmurs, gallops, or rubs. RESPIRATORY: Breath sounds equal bilaterally. No accessory muscle use. GASTROINTESTINAL: Abdomen soft, non-tender, nondistended. MUSCULOSKELETAL: No cyanosis, or edema. Neuro: Sedated. A/P Assessment and Plan 1. Acute hypercapnic respiratory failure requiring intubation. 2. COPD. 3. Leukocytosis... trending down 4. Pneumonia 5. Mild acute kidney injury. 6. Hyperglycemia with underlying history of diabetes mellitus. 7. Peripheral vascular disease. 8. Morbid obesity. 9. Hypertension. Plan Neuro: On fentanyl infusion for sedation. Daily sedation vacation. Monitor neuro status closely. CT brain showed remote right occipital infarct. Pulm: Continue with vent support and maintain sats above 92%. Bronchodilators, ICU vent bundle. Start SBT daily as margaret CT chest showed pneumonia at bases R>L. CV: Monitor HR and BP maintain MAP>65 mmHg. Lactic acid: 0.7 For 2-D echo to evaluate LV function. Echo from October of 2015 : EF 60-65% without RWMA Continue with aspirin and Plavix. Restart Lopressor 25mg PO Q12. : Monitor renal function Is and Os and electrolyte replacement as needed. On NS 42 ml an hour. Renal function improving with Cr: 1.35 from 1.62 GI: On Protonix 40 mg IV daily for GI prophylaxis. Start nutrition support today if remains intubated. ID: Continue with abx( Zosyn and azithromycin) vanco 1 gram x1 dose 1/2 Given cefepime and azithromycin in the ED. Follow-up on blood and urine cultures Check sputum culture and nasal washing to rule out influenza strep pneumoniae and Legionella urinary antigen negative. Heme: Monitor CBC and continue with ferrous sulfate, folic acid and multivitamins. Endo: Increase SSI ( Medium) with Accu-Cheks for glycemic control. GI prophylaxis with Protonix 40 mg daily and DVT prophylaxis with SCDs and heparin subcu. CCT 30 mins Lluvia Gamboa MD Jun 04, 2016 08:56
[2016-06-04] MEDS: FOLIC ACID 1 MG TAB PO SCH (08:59)
[2016-06-04] MEDS: PANTOPRAZOLE SODIUM 40 MG VIAL IV SCH (08:59)
[2016-06-04] MEDS: ASCORBIC ACID 500 MG TAB PO SCH ×2 (08:59→20:06)
[2016-06-04] MEDS: ASPIRIN EC 81 MG TABEC PO SCH (09:00)
[2016-06-04] MEDS: FERROUS SULFATE 325 MG (65 MG ELEMENTAL IRON) TAB PO SCH (09:00)
[2016-06-04] MEDS ORDERED: DEXTROSE 50% IN WATER 50 ML VIAL(D50) IV PUSH PRN (09:00)
[2016-06-04] MEDS: CLOPIDOGREL 75 MG TAB PO SCH (09:00)
[2016-06-04] MEDS: MULTIVITAMIN HEMATINIC THERAPEUTIC TAB PO SCH (09:00)
[2016-06-04] MEDS ORDERED: GLUCAGON 1 MG/ML VIAL OTHER PRN (09:00)
[2016-06-04] MEDS: CHLORHEXIDINE 0.12% (ORAL KIT) 15 ML CUP MT SCH ×2 (09:00→20:06)
[2016-06-04] MEDS: METOPROLOL TARTRATE 25 MG TAB PO SCH ×2 (10:21→19:21)
[2016-06-04 13:50] LABS: BLOOD GAS CARBOXYHEMOGLOBIN 1.2 % (0-4); BLOOD GAS HCO3 31 mmol/L (22-26); BLOOD GAS METHEMOGLOBIN 1.1 % (0-2); BLOOD GAS O2 HGB SATURATION 91 % (90-100); BLOOD GAS OXYGEN CONTENT 14.1 Vol % (12.0-20.0); BLOOD GAS PCO2 58 mmHg (38-42); BLOOD GAS PO2 72 mmHg (61-120); CRITICAL VALUE YES; OXYGEN DEVICE VENTILATOR; TEMP CORR TO 98.6; VENT SETTINGS CPAP 5/10PS
[2016-06-04 13:51] LABS: DRAW SITE RT RADIAL; FIO2 40 %; NUMBER OF ARTERIAL PUNCTURES 2; STAT NO; ULNAR PULSE PRESENT
[2016-06-04] MEDS: AZITHROMYCIN INJ 500 MG in SODIUM CHLOR 0.9% 250 ML INJ 250 ML IV SCH (14:11)
[2016-06-04] MEDS: SODIUM CHLOR 0.9% 1000 ML INJ 1,000 ML IV SCH (16:37)
--- NOTE | 2016-06-04 19:03 | EC ---
Study Study Date:06/04/2016 STUDY CONCLUSIONS SUMMARY - Procedure narrative: Transthoracic echocardiography. Image quality was poor. The study was technically limited due to poor acoustic window availability. Scanning was performed from the parasternal, apical, and subcostal acoustic windows. - Left ventricle: Limited views, ejection fraction is probably normal. Can not determine wall motion abnormalities based on this study. Doppler parameters are consistent with abnormal left ventricular relaxation (grade 1 diastolic dysfunction). - Mitral valve: Mildly calcified annulus. - Tricuspid valve: Mild regurgitation. - Pulmonary arteries: PA peak pressure: 62mm Hg (S). If LV function is below 40, please consider prescribing an ACEI or ARB or document rationale for non-use. PROCEDURE DATA STUDY STATUS: Elective. Procedure: Transthoracic echocardiography. Image quality was poor. The study was technically limited due to poor acoustic window availability. Scanning was performed from the parasternal, apical, and subcostal acoustic windows. Study completion: The patient tolerated the procedure well. Transthoracic echocardiography. M-mode, complete 2D, complete spectral Doppler, and color Doppler. Height: Height: 64in. Weight: Weight: 219.5lb. Body mass index: BMI: 37.8kg/m^2. Body surface area: BSA: 2.04m^2. Patient status: Inpatient. CARDIAC ANATOMY LEFT VENTRICLE: Limited views, ejection fraction is probably normal. Can not determine wall motion abnormalities based on this study. Doppler parameters are consistent with abnormal left ventricular relaxation (grade 1 diastolic dysfunction). AORTIC VALVE: The valve appears to be grossly normal. Doppler: There was no stenosis. No significant regurgitation. MITRAL VALVE: Mildly calcified annulus. Doppler: There was no evidence for stenosis. No significant regurgitation. Peak gradient: 3mm Hg (D). PULMONIC VALVE: Not visualized. TRICUSPID VALVE: The valve appears to be grossly normal. Doppler: There was no evidence for stenosis. Mild regurgitation. Patient weight: 219.5lb _Ejection fraction:_ 65-75% _Fractional shortening:_ 32% up to 5Kg 5-11.5Kg 11.6-22.9Kg 23-45Kg 45-57Kg Aortic Root 7-13 <17 13-22 17-27 17-27 LA diam 6-13 <23 24-38 33-47 37-40 RVID 10-17 7-15 7-15 7-18 8-17 LVIDd 12-22 <32 24-38 33-47 37-40 LVPW 2-4 3-6 5-7 6-8 7-8 IVS 2-4 3-6 5-7 6-8 7-8 BASIC MEASUREMENTS ADULT NORMAL Left ventricle LV internal dimension, ED, chordal level, 43.8 mm 43-52 PLAX LV internal dimension, ES, chordal level, 31.6 mm 23-38 PLAX Fractional shortening, chordal level, PLAX *28 % >29 LV posterior wall thickness, ED 9.35 mm IVS/LVPW ratio, ED 1 <1.3 Ventricular septum Septal thickness, ED 9.31 mm Aortic valve Leaflet separation *13 mm 15- Aorta Root diameter, ED 29 mm BASIC MEASUREMENTS ADULT NORMAL Aortic valve Leaflet separation *13 mm 15-26 DOPPLER MEASUREMENTS ADULT NORMAL Main pulmonary artery Pressure, S *62 mm Hg =30 Mitral valve Peak E-wave velocity 87.9 cm/s Peak A-wave velocity 130 cm/s Deceleration time *236 ms 150-230 Peak gradient, D 3 mm Hg Peak E/A ratio 0.7 Tricuspid valve Regurgitant peak velocity 366 cm/s Peak RV-RA gradient, S 54 mm Hg Maximal regurgitant velocity 366 cm/s Systemic veins Estimated CVP 10 mm Hg Right ventricle RV pressure, S *64 mm Hg <30 Pulmonic valve Peak velocity, S 66.1 cm/s LEGEND: Mean values are shown as u=mean value. Asterisk (*) dsouza values outside specified normal range. Prepared and signed by Jani Mayorga [id number]
[2016-06-04] MEDS: ATORVASTATIN 40 MG TAB PO SCH (20:06)
[2016-06-05] VITALS (16 sets, daily range): BP systolic 88–136; BP diastolic 55–69; PULSE 74–105; RESP 14–16; TEMP 98.5–99.3; O2SAT 93–97
--- NOTE | 2016-06-05 00:02 | EKG ---
Date Performed: 06/03/2016 Time Performed: 11:59:34 PTAGE: 65 years EKG: Sinus rhythm POSSIBLE LEFT ATRIAL ENLARGEMENT ST DEVIATION AND MODERATE T-WAVE ABNORMALITY, CONSIDER ANTERIOR ISC HEMIA ABNORMAL ECG PREVIOUS TRACING : 10/23/2015 04.13 DOCTOR: Julio Cesar Alvarez Interpretating Date/Time 06/04/2016 23:52:10
[2016-06-05] MEDS: INSULIN NovoLIN REGULAR SUPPLEMENTAL SCALE SQ SCH ×4 (02:37→20:09)
[2016-06-05] MEDS: RESP: ALBUTEROL 2.5 MG/IPRATROPIUM 0.5 MG NEB (SCH) INH ×6 (02:54→23:55)
[2016-06-05] MEDS: PIPERACIL-TAZO 3.375 GM PREMIX 50 ML IV SCH ×4 (02:59→20:09)
[2016-06-05] MEDS: HEPARIN SODIUM - SQ 10,000 UNITS/ML VIAL SQ SCH ×3 (06:20→20:09)
[2016-06-05 07:11] LABS: BICARBONATE 29.3 MEQ/L (21.0-32.0); POTASSIUM 3.9 MEQ/L (3.5-5.1)
[2016-06-05] MEDS: METOPROLOL TARTRATE 25 MG TAB PO SCH ×2 (09:00→20:10)
[2016-06-05 09:32] LABS: AUTOMATED NEUTROPHIL # 7.9 TH/MM3 (1.8-7.7); BASOPHIL % 0.4 % (0.0-2.0); EOSINOPHIL # 0.1 TH/MM3 (0-0.4); EOSINOPHIL % 0.6 % (0.0-4.0); HEMATOCRIT 32.5 % (35.0-46.0); LYMPH % 14.9 % (9.0-44.0); LYMPHOCYTE # 1.7 TH/MM3 (1.0-4.8); MEAN CELL VOLUME 75.3 FL (80.0-100.0); MEAN CORPUSCULAR HEMOGLOBIN 22.8 PG (27.0-34.0); MEAN CORPUSCULAR HGB CONC 30.3 % (32.0-36.0); MONO % 13.3 % (0.0-8.0); NEUT % 70.8 % (16.0-70.0); PLATELET COUNT 251 TH/MM3 (150-450); RED BLOOD COUNT 4.32 MIL/MM3 (4.00-5.30); RED CELL DISTRIBUTION WIDTH 15.1 % (11.6-17.2); WHITE BLOOD COUNT 11.1 TH/MM3 (4.0-11.0)
[2016-06-05] MEDS: FOLIC ACID 1 MG TAB PO SCH (09:33)
[2016-06-05] MEDS: ASCORBIC ACID 500 MG TAB PO SCH ×2 (09:33→20:10)
[2016-06-05] MEDS: PANTOPRAZOLE SODIUM 40 MG VIAL IV SCH (09:33)
[2016-06-05] MEDS: MULTIVITAMIN HEMATINIC THERAPEUTIC TAB PO SCH (09:33)
[2016-06-05] MEDS: CLOPIDOGREL 75 MG TAB PO SCH (09:33)
[2016-06-05] MEDS: FERROUS SULFATE 325 MG (65 MG ELEMENTAL IRON) TAB PO SCH (09:33)
[2016-06-05] MEDS: ASPIRIN EC 81 MG TABEC PO SCH (09:34)
[2016-06-05] MEDS: CHLORHEXIDINE 0.12% (ORAL KIT) 15 ML CUP MT SCH ×2 (09:34→20:09)
[2016-06-05 09:40] LABS: HEMO FLAGS AUTO DIFF
[2016-06-05 10:13] LABS: SCAN/DIFF AUTO DIFF CONFIRMED
[2016-06-05] MEDS: AZITHROMYCIN INJ 500 MG in SODIUM CHLOR 0.9% 250 ML INJ 250 ML IV SCH (13:19)
[2016-06-05] MEDS: SODIUM CHLOR 0.9% 1000 ML INJ 1,000 ML IV SCH ×2 (14:38→20:10)
--- NOTE | 2016-06-05 16:05 | HHI.CCPN ---
Subjective Remarks/Hospital Course Patient is 65-year-old female with past medical history of COPD, diabetes mellitus, peripheral vascular disease, rheumatoid arthritis, questionable CHF who was brought in to [facility] ED via EMS from assisted living facility for altered mental status and productive cough. The patient has had a history of productive cough for the past 3-4 days with thick brown phlegm. She is usually on 4 liters oxygen at the [facility] continuously which was increased to 6 liters per report. No history of any chills or constitutional symptoms. This morning the patient was confused. ABG was performed on a BiPap which showed acute hypercapnic respiratory acidosis with a pH of 7.21, CO2 87, pAO2 72 and sat of 90%. The patient remained lethargic, unresponsive on a BiPap and she was subsequently intubated with etomidate, succinylcholine and placed on full mechanical ventilation. On arrival she had a blood pressure of 157/73 with a pulse of 96. Laboratory data significant for leukocytosis with a WBC of 14.0. Her CMP showed mild acute kidney injury with creatinine level of 1.62 and potassium of 4.5. Her lactic acid level measured at 0.7. BNP is 383. Due to altered mental status, CT scan of the brain was performed which showed remote right occipital infarct. A chest x-ray prior to intubation showed diffuse bilateral pulmonary infiltrates, cardiomegaly. In the ED she was given Solu-Medrol 125 mg IV push, bronchodilator treatment, cefepime and azithromycin. CT scan of the chest has been ordered by the ED staff. 06/04 No acute events overnight. Sedated with Fentanyl and intubated. CT chest from yesterday showed pneumonia. Afebrile. 06/05: Remains sedated, arousable, orally intubated on mechanical ventilation. Developed hypotension this morning for which she received 500 cc normal saline bolus. Objective Vital Signs Date Time Temp Pulse Resp B/P Pulse Ox O2 Delivery O2 Flow Rate FiO2 06/05/16 14:13 93 45 06/05/16 06:00 100 06/05/16 04:00 99.2 14 95/65 06/04/16 08:50 Ventilator 06/03/16 12:20 6.00 Intake and Output 06/04/16 06/04/16 06/04/16 07:59 15:59 23:59 Intake Total 640 ml 1163 ml 420 ml Output Total 450 ml 400 ml 290 ml Balance 190 ml 763 ml 130 ml Result Diagram: 06/05/16 0910 06/05/16 0615 Other Results Microbiology Date/Time Procedure Status Source Growth 06/03/16 14:10 Urine Culture - Final Complete Urine Catheterized Urine NO GROWTH IN 48 HOURS. 06/03/16 14:10 Legionella Antigen - Final Complete Urine Catheterized Urine PRESUMPTIVE NEGATIVE FOR LEGIONELLA P... 06/03/16 14:10 Streptococcus pneumoniae Antigen (M - Final Complete Urine Catheterized Urine PRESUMPTIVE NEGATIVE FOR STREPTOCOCCU... 06/04/16 00:00 Influenza Types A,B Antigen (JULIO) - Final Complete Nasal Washing NEGATIVE FOR FLU A AND B ANTIGEN.... Imaging Last Impressions Head CT 06/03/16 1152 Signed Impressions: Service Date/Time: Friday, June 03, 2016 12:42 - CONCLUSION: Remote right occipital infarct again noted. Tu White MD Chest X-Ray 06/03/16 1152 Signed Impressions: Service Date/Time: Friday, June 03, 2016 12:19 - CONCLUSION: Probable CHF. Tu White MD Chest CT 06/03/16 0000 Signed Impressions: Service Date/Time: Friday, June 03, 2016 18:53 - CONCLUSION: Patchy pneumonia of both lung bases, especially the right lower lobe. Chito Arellano MD Objective Remarks GENERAL: Patient is 65yo intubated and sedated SKIN: Warm and dry. HEAD: Normocephalic. EYES: No scleral icterus. No injection or drainage. NECK: Supple, trachea midline. No JVD or lymphadenopathy. CARDIOVASCULAR: Regular rate and rhythm without murmurs, gallops, or rubs. RESPIRATORY: on [facility] ventilation, Breath sounds equal bilaterally. scattered rhonchi, no wheezing. GASTROINTESTINAL: Abdomen soft, non-tender, nondistended. MUSCULOSKELETAL: No cyanosis, or edema. Neuro: Sedated, arousable, follows commands. A/P Assessment and Plan 1. Acute hypercapnic respiratory failure requiring intubation. 2. COPD. 3. Leukocytosis 4. Pneumonia 5. Mild acute kidney injury. 6. Hyperglycemia with underlying history of diabetes mellitus. 7. Peripheral vascular disease. 8. Morbid obesity. 9. Hypertension. Plan Neuro: On fentanyl infusion for sedation. Daily sedation vacation. Monitor neuro status closely. CT brain showed remote right occipital infarct. Pulm: Continue with vent support and maintain sats above 92%. Bronchodilators, ICU vent bundle. Start SBT daily as margaret CT chest showed pneumonia at bases R>L. CV: Monitor HR and BP maintain MAP>65 mmHg. For 2-D echo with diastolic dysfunction. Echo from October of 2015 : EF 60-65% without RWMA Continue with aspirin and Plavix. Lopressor 25mg PO Q12 held as patient was hypotensive and given a fluid bolus earlier. : Monitor renal function Is and Os and electrolyte replacement as needed. On NS 42 ml an hour. Strict intake output, monitor and replete electrolytes, follow BUN/ creatinine. GI: On Protonix 40 mg IV daily for GI prophylaxis. Start nutrition support today if remains intubated. ID: Continue with abx( Zosyn and azithromycin) vanco 1 gram x1 dose 1/2 Given cefepime and azithromycin in the ED. Follow-up on blood and urine cultures Check sputum culture and nasal washing to rule out influenza strep pneumoniae and Legionella urinary antigen negative. Heme: Monitor CBC and continue with ferrous sulfate, folic acid and multivitamins. Endo: Increase SSI ( Medium) with Accu-Cheks for glycemic control. GI prophylaxis with Protonix 40 mg daily and DVT prophylaxis with SCDs and heparin subcu. CCT 30 mins Dwayne Nix MD Jun 05, 2016 16:05
[2016-06-05] MEDS: ATORVASTATIN 40 MG TAB PO SCH (20:10)
[2016-06-05] MEDS: CHLORHEXIDINE GLUCONATE 2 % 1 PACK (2 CLOTHS) TOP SCH (20:10)
[2016-06-06] VITALS (19 sets, daily range): BP systolic 80–138; BP diastolic 50–88; PULSE 74–119; RESP 14–26; TEMP 98.6–99.8; O2SAT 92–98
[2016-06-06] MEDS: fentaNYL DRIP 250 ML IV SCH (00:47)
[2016-06-06] MEDS: PIPERACIL-TAZO 3.375 GM PREMIX 50 ML IV SCH ×4 (02:57→21:44)
[2016-06-06] MEDS: INSULIN NovoLIN REGULAR SUPPLEMENTAL SCALE SQ SCH ×4 (02:57→21:44)
[2016-06-06] MEDS: RESP: ALBUTEROL 2.5 MG/IPRATROPIUM 0.5 MG NEB (SCH) INH ×6 (03:49→23:47)
[2016-06-06 05:05] LABS: AUTOMATED NEUTROPHIL # 7.7 TH/MM3 (1.8-7.7); BASOPHIL # 0.1 TH/MM3 (0-0.2); BASOPHIL % 1.3 % (0.0-2.0); EOSINOPHIL % 0.3 % (0.0-4.0); HEMATOCRIT 34.2 % (35.0-46.0); LYMPH % 16.3 % (9.0-44.0); LYMPHOCYTE # 1.8 TH/MM3 (1.0-4.8); MEAN CELL VOLUME 75.6 FL (80.0-100.0); MEAN CORPUSCULAR HGB CONC 30.5 % (32.0-36.0); MONO % 13.6 % (0.0-8.0); NEUT % 68.5 % (16.0-70.0); PLATELET COUNT 265 TH/MM3 (150-450); RED BLOOD COUNT 4.52 MIL/MM3 (4.00-5.30); RED CELL DISTRIBUTION WIDTH 15.1 % (11.6-17.2); WHITE BLOOD COUNT 11.2 TH/MM3 (4.0-11.0)
[2016-06-06 05:14] LABS: HEMO FLAGS AUTO DIFF
[2016-06-06 05:26] LABS: ALKALINE PHOSPHATASE 89 U/L (45-117); ALT (GPT) 19 U/L (10-53); ANION GAP 7 MEQ/L (5-15); AST (GOT) 15 U/L (15-37); BICARBONATE 32.3 MEQ/L (21.0-32.0); BLOOD UREA NITROGEN 20 MG/DL (7-18); CHLORIDE 106 MEQ/L (98-107); GLOMERULAR FILTRATION RATE 59 ML/MIN (>89); SODIUM (NA) 145 MEQ/L (136-145); TOTAL BILIRUBIN ADULT 0.6 MG/DL (0.2-1.0)
[2016-06-06] MEDS: HEPARIN SODIUM - SQ 10,000 UNITS/ML VIAL SQ SCH ×3 (05:53→21:48)
[2016-06-06 07:29] LABS: OVALOCYTES 1+ (NORMAL); SCAN/DIFF AUTO DIFF CONFIRMED
--- NOTE | 2016-06-06 08:29 | HHI.CCPN ---
Subjective Remarks/Hospital Course Patient is 65-year-old female with past medical history of COPD, diabetes mellitus, peripheral vascular disease, rheumatoid arthritis, questionable CHF who was brought in to [facility] ED via EMS from assisted living facility for altered mental status and productive cough. The patient has had a history of productive cough for the past 3-4 days with thick brown phlegm. She is usually on 4 liters oxygen at the [facility] continuously which was increased to 6 liters per report. No history of any chills or constitutional symptoms. This morning the patient was confused. ABG was performed on a BiPap which showed acute hypercapnic respiratory acidosis with a pH of 7.21, CO2 87, pAO2 72 and sat of 90%. The patient remained lethargic, unresponsive on a BiPap and she was subsequently intubated with etomidate, succinylcholine and placed on full mechanical ventilation. On arrival she had a blood pressure of 157/73 with a pulse of 96. Laboratory data significant for leukocytosis with a WBC of 14.0. Her CMP showed mild acute kidney injury with creatinine level of 1.62 and potassium of 4.5. Her lactic acid level measured at 0.7. BNP is 383. Due to altered mental status, CT scan of the brain was performed which showed remote right occipital infarct. A chest x-ray prior to intubation showed diffuse bilateral pulmonary infiltrates, cardiomegaly. In the ED she was given Solu-Medrol 125 mg IV push, bronchodilator treatment, cefepime and azithromycin. CT scan of the chest has been ordered by the ED staff. 06/04 No acute events overnight. Sedated with Fentanyl and intubated. CT chest from yesterday showed pneumonia. Afebrile. 06/05: Remains sedated, arousable, orally intubated on mechanical ventilation. Developed hypotension this morning for which she received 500 cc normal saline bolus. 06/06: Remains sedated, arousable, orally intubated on mechanical ventilation. Tolerating tube feeds. Objective Vital Signs Date Time Temp Pulse Resp B/P Pulse Ox O2 Delivery O2 Flow Rate FiO2 06/06/16 06:00 101 06/06/16 04:00 40 06/06/16 04:00 98.9 14 90/51 96 06/04/16 08:50 Ventilator 06/03/16 12:20 6.00 Intake and Output 06/05/16 06/05/16 06/05/16 07:59 15:59 23:59 Intake Total 388 ml 1520 ml 983 ml Output Total 950 ml 850 ml 550 ml Balance -562 ml 670 ml 433 ml Result Diagram: 06/06/16 0451 06/06/16 0451 Other Results Microbiology Date/Time Procedure Status Source Growth 06/04/16 13:50 Gram Stain - Final Resulted Sputum Endotracheal 06/04/16 13:50 Sputum Culture - Preliminary Resulted Sputum Endotracheal NO GROWTH IN 24 HOURS. 06/04/16 00:00 Influenza Types A,B Antigen (JULIO) - Final Complete Nasal Washing NEGATIVE FOR FLU A AND B ANTIGEN.... 06/03/16 14:10 Urine Culture - Final Complete Urine Catheterized Urine NO GROWTH IN 48 HOURS. 06/03/16 14:10 Legionella Antigen - Final Complete Urine Catheterized Urine PRESUMPTIVE NEGATIVE FOR LEGIONELLA P... 06/03/16 14:10 Streptococcus pneumoniae Antigen (M - Final Complete Urine Catheterized Urine PRESUMPTIVE NEGATIVE FOR STREPTOCOCCU... 06/03/16 12:05 Aerobic Blood Culture - Preliminary Resulted Blood Peripheral NO GROWTH IN 2 DAYS 06/03/16 12:05 Anaerobic Blood Culture - Preliminary Resulted Blood Peripheral NO GROWTH IN 2 DAYS Imaging Last Impressions Head CT 06/03/16 1152 Signed Impressions: Service Date/Time: Friday, June 03, 2016 12:42 - CONCLUSION: Remote right occipital infarct again noted. Tu White MD Chest X-Ray 06/03/16 1152 Signed Impressions: Service Date/Time: Friday, June 03, 2016 12:19 - CONCLUSION: Probable CHF. Tu White MD Chest CT 06/03/16 0000 Signed Impressions: Service Date/Time: Friday, June 03, 2016 18:53 - CONCLUSION: Patchy pneumonia of both lung bases, especially the right lower lobe. Chito Arellano MD Objective Remarks GENERAL: Patient is 65yo intubated and sedated SKIN: Warm and dry. HEAD: Normocephalic. EYES: No scleral icterus. No injection or drainage. NECK: Supple, trachea midline. No JVD or lymphadenopathy. CARDIOVASCULAR: Regular rate and rhythm without murmurs, gallops, or rubs. RESPIRATORY: on mech ventilation, Breath sounds equal bilaterally. scattered rhonchi, no wheezing. GASTROINTESTINAL: Abdomen soft, non-tender, nondistended. MUSCULOSKELETAL: No cyanosis, or edema. Neuro: Sedated, arousable, follows commands. A/P Assessment and Plan 1. Acute hypercapnic respiratory failure requiring intubation. 2. COPD. 3. Leukocytosis 4. Pneumonia 5. Mild acute kidney injury. 6. Hyperglycemia with underlying history of diabetes mellitus. 7. Peripheral vascular disease. 8. Morbid obesity. 9. Hypertension. Plan Neuro: On fentanyl infusion for sedation. Daily sedation vacation. Monitor neuro status closely. CT brain showed remote right occipital infarct. Pulm: Continue with vent support and maintain sats above 92%. Bronchodilators, ICU vent bundle. SBT daily as margaret CT chest showed pneumonia at bases R>L. CV: Monitor HR and BP maintain MAP>65 mmHg. For 2-D echo with diastolic dysfunction. Echo from October of 2015 : EF 60-65% without RWMA Continue with aspirin and Plavix. Hold Lopressor in view of hypotension. We'll give 500 cc normal saline bolus today. : Monitor renal function Is and Os and electrolyte replacement as needed. On NS 42 ml an hour. Strict intake output, monitor and replete electrolytes, follow BUN/ creatinine. GI: On Protonix 40 mg IV daily for GI prophylaxis. Tolerating tube feeds ID: Continue with abx( Zosyn and azithromycin) vanco 1 gram x1 dose 1/2 Given cefepime and azithromycin in the ED. blood/ sputum and urine cultures negative Nasal washings negative for influenza A & B strep pneumoniae and Legionella urinary antigen negative. Heme: Monitor CBC and continue with ferrous sulfate, folic acid and multivitamins. Endo: SSI ( Medium) with Accu-Cheks for glycemic control. GI prophylaxis with Protonix 40 mg daily and DVT prophylaxis with SCDs and heparin subcu. CCT 30 mins Dwayne Nix MD Jun 06, 2016 08:29
[2016-06-06] MEDS ORDERED: SODIUM CHLORID 0.9% 500 ML INJ 500 ML IV ONE (08:45)
[2016-06-06] MEDS: METOPROLOL TARTRATE 25 MG TAB PO SCH ×2 (09:00→21:00)
[2016-06-06] MEDS: PANTOPRAZOLE SODIUM 40 MG VIAL IV SCH (09:02)
[2016-06-06] MEDS: CLOPIDOGREL 75 MG TAB PO SCH (09:03)
[2016-06-06] MEDS: FOLIC ACID 1 MG TAB PO SCH (09:03)
[2016-06-06] MEDS: MULTIVITAMIN HEMATINIC THERAPEUTIC TAB PO SCH (09:03)
[2016-06-06] MEDS: ASPIRIN EC 81 MG TABEC PO SCH (09:03)
[2016-06-06] MEDS: ASCORBIC ACID 500 MG TAB PO SCH ×2 (09:03→21:44)
[2016-06-06] MEDS: FERROUS SULFATE 325 MG (65 MG ELEMENTAL IRON) TAB PO SCH (09:03)
[2016-06-06] MEDS: CHLORHEXIDINE 0.12% (ORAL KIT) 15 ML CUP MT SCH ×2 (09:04→21:43)
--- NOTE | 2016-06-06 10:10 | RADRPT ---
EXAM DATE/TIME: 06/06/2016 09:05 [facility] COMPARISON: CHEST SINGLE AP, June 03, 2016, 16:25. INDICATIONS : Short of breath. MEDICAL HISTORY : Chronic obstructive pulmonary disease. SURGICAL HISTORY : None. ENCOUNTER: Initial ACUITY: 3 days PAIN SCORE: Non-responsive. LOCATION: Bilateral chest FINDINGS: A single view of the chest demonstrates cardiomegaly. Linear densities in the midlungs bilaterally. E ndotracheal tube nasogastric tube unchanged. The cardiomediastinal contours are unremarkable. Osseou s structures are intact. CONCLUSION: Cardiomegaly and bilateral mid lung subsegmental atelectasis. No change. Dany Quick MD on June 06, 2016 at 10:08 Board Certified Radiologist. This report was verified electronically.
[2016-06-06] MEDS: AZITHROMYCIN INJ 500 MG in SODIUM CHLOR 0.9% 250 ML INJ 250 ML IV SCH (13:20)
--- NOTE | 2016-06-06 17:36 | RADRPT ---
EXAM DATE/TIME: 06/06/2016 17:05 [facility] COMPARISON: CT THORAX W/O CONTRAST, June 03, 2016, 18:53. CHEST SINGLE AP, June 06, 2016, 9:05. INDICATIONS : Evaluate PICC line placement. MEDICAL HISTORY : Chronic obstructive pulmonary disease. SURGICAL HISTORY : None. ENCOUNTER: Subsequent ACUITY: 3 days PAIN SCORE: Non-responsive. LOCATION: Right chest FINDINGS: Endotracheal tube is present in satisfactory position with tip 6 cm above the teresita. Nasogastric tub e descends to the stomach. A right arm PICC line is present with tip seen to extend to the level of m edial right clavicle, potentially within the subclavian vein. Bilateral infiltrates and effusion are slightly more prominent than on prior exam. Masslike left perihilar density is accentuated on this cu rrent film. Cardiomegaly is again noted. CONCLUSION: PICC line is seen to extend to the level of the medial right clavicle Chito Looney MD on June 06, 2016 at 17:31 Board Certified Radiologist. This report was verified electronically.
[2016-06-06] MEDS: SODIUM CHLOR 0.9% 1000 ML INJ 1,000 ML IV SCH (17:48)
--- NOTE | 2016-06-06 20:34 | RADRPT ---
EXAM DATE/TIME: 06/06/2016 19:57 [facility] COMPARISON: CHEST SINGLE AP, June 06, 2016, 17:05. INDICATIONS : PICC line placement (right side) MEDICAL HISTORY : Chronic obstructive pulmonary disease SURGICAL HISTORY : None. ENCOUNTER: Subsequent ACUITY: 3 days PAIN SCORE: 0/10 LOCATION: Bilateral chest FINDINGS: There is a right arm PICC. The tip is in the superior vena cava. Tip is indistinct, presumably relate d to cardiac motion. Endotracheal tube tip is about 4 cm above the teresita. There is a nasogastric tub e that courses into the stomach. Patchy airspace opacities and mild to moderate cardiomegaly again noted. No pneumothorax seen. CONCLUSION: Right arm PICC with tip in the superior vena cava. Chito Arellano MD on June 06, 2016 at 20:30 Board Certified Radiologist. This report was verified electronically.
[2016-06-06] MEDS: ATORVASTATIN 40 MG TAB PO SCH (21:44)
[2016-06-07] VITALS (22 sets, daily range): BP systolic 90–194; BP diastolic 50–89; PULSE 72–114; RESP 17–28; TEMP 98.6–99.2; O2SAT 89–98
[2016-06-07] MEDS: INSULIN NovoLIN REGULAR SUPPLEMENTAL SCALE SQ SCH ×4 (03:09→22:31)
[2016-06-07] MEDS: CHLORHEXIDINE GLUCONATE 2 % 1 PACK (2 CLOTHS) TOP SCH (03:09)
[2016-06-07] MEDS: PIPERACIL-TAZO 3.375 GM PREMIX 50 ML IV SCH ×4 (03:09→22:31)
[2016-06-07] MEDS: RESP: ALBUTEROL 2.5 MG/IPRATROPIUM 0.5 MG NEB (SCH) INH ×3 (03:27→11:23)
[2016-06-07] MEDS: HEPARIN SODIUM - SQ 10,000 UNITS/ML VIAL SQ SCH ×3 (05:24→22:31)
[2016-06-07] MEDS: SODIUM CHLOR 0.9% 1000 ML INJ 1,000 ML IV SCH ×2 (05:24→22:32)
[2016-06-07] MEDS: CLOPIDOGREL 75 MG TAB PO SCH (08:52)
[2016-06-07] MEDS: ASPIRIN EC 81 MG TABEC PO SCH (08:52)
[2016-06-07] MEDS: MULTIVITAMIN HEMATINIC THERAPEUTIC TAB PO SCH (08:52)
[2016-06-07] MEDS: FOLIC ACID 1 MG TAB PO SCH (08:52)
[2016-06-07] MEDS: FERROUS SULFATE 325 MG (65 MG ELEMENTAL IRON) TAB PO SCH (08:53)
[2016-06-07] MEDS: ASCORBIC ACID 500 MG TAB PO SCH ×2 (08:53→22:30)
[2016-06-07] MEDS: PANTOPRAZOLE SODIUM 40 MG VIAL IV SCH (08:54)
[2016-06-07] MEDS: METOPROLOL TARTRATE 25 MG TAB PO SCH ×2 (08:58→22:31)
[2016-06-07] MEDS: CHLORHEXIDINE 0.12% (ORAL KIT) 15 ML CUP MT SCH ×2 (09:52→22:30)
[2016-06-07] MEDS: AZITHROMYCIN INJ 500 MG in SODIUM CHLOR 0.9% 250 ML INJ 250 ML IV SCH (14:50)
[2016-06-07] MEDS: RESP: ALBUTEROL 2.5 MG/IPRATROPIUM 0.5 MG NEB (PRN) INH ×2 (16:00→19:47)
[2016-06-07] MEDS: hydrALAZINE HCL 20 MG/ML VIAL IV PUSH PRN (17:16)
--- NOTE | 2016-06-07 19:36 | HHI.CCPN ---
Subjective Remarks/Hospital Course Patient is 65-year-old female with past medical history of COPD, diabetes mellitus, peripheral vascular disease, rheumatoid arthritis, questionable CHF who was brought in to [facility] ED via EMS from assisted living facility for altered mental status and productive cough. The patient has had a history of productive cough for the past 3-4 days with thick brown phlegm. She is usually on 4 liters oxygen at the [facility] continuously which was increased to 6 liters per report. No history of any chills or constitutional symptoms. This morning the patient was confused. ABG was performed on a BiPap which showed acute hypercapnic respiratory acidosis with a pH of 7.21, CO2 87, pAO2 72 and sat of 90%. The patient remained lethargic, unresponsive on a BiPap and she was subsequently intubated with etomidate, succinylcholine and placed on full mechanical ventilation. On arrival she had a blood pressure of 157/73 with a pulse of 96. Laboratory data significant for leukocytosis with a WBC of 14.0. Her CMP showed mild acute kidney injury with creatinine level of 1.62 and potassium of 4.5. Her lactic acid level measured at 0.7. BNP is 383. Due to altered mental status, CT scan of the brain was performed which showed remote right occipital infarct. A chest x-ray prior to intubation showed diffuse bilateral pulmonary infiltrates, cardiomegaly. In the ED she was given Solu-Medrol 125 mg IV push, bronchodilator treatment, cefepime and azithromycin. CT scan of the chest has been ordered by the ED staff. 06/04 No acute events overnight. Sedated with Fentanyl and intubated. CT chest from yesterday showed pneumonia. Afebrile. 06/05: Remains sedated, arousable, orally intubated on mechanical ventilation. Developed hypotension this morning for which she received 500 cc normal saline bolus. 06/06: Remains sedated, arousable, orally intubated on mechanical ventilation. Tolerating tube feeds. 06/07: Remains sedated, arousable, orally intubated on mechanical ventilation. Tolerating tube feeds. Thick respiratory secretions. Objective Vital Signs Date Time Temp Pulse Resp B/P Pulse Ox O2 Delivery O2 Flow Rate FiO2 06/07/16 18:00 84 06/07/16 16:48 93 45 06/07/16 16:00 99.1 28 194/89 06/04/16 08:50 Ventilator 06/03/16 12:20 6.00 Intake and Output 06/06/16 06/06/16 06/07/16 08:00 16:00 00:00 Intake Total 920 ml 1595 ml 974 ml Output Total 800 ml 700 ml 850 ml Balance 120 ml 895 ml 124 ml Result Diagram: 06/06/16 0451 06/06/16 0451 Imaging Last Impressions Head CT 06/03/16 1152 Signed Impressions: Service Date/Time: Friday, June 03, 2016 12:42 - CONCLUSION: Remote right occipital infarct again noted. Tu White MD Chest X-Ray 06/03/16 1152 Signed Impressions: Service Date/Time: Friday, June 03, 2016 12:19 - CONCLUSION: Probable CHF. Tu White MD Chest CT 06/03/16 0000 Signed Impressions: Service Date/Time: Friday, June 03, 2016 18:53 - CONCLUSION: Patchy pneumonia of both lung bases, especially the right lower lobe. Chito Arellano MD Objective Remarks GENERAL: Patient is 65yo intubated and sedated SKIN: Warm and dry. HEAD: Normocephalic. EYES: No scleral icterus. No injection or drainage. NECK: Supple, trachea midline. No JVD or lymphadenopathy. CARDIOVASCULAR: Regular rate and rhythm without murmurs, gallops, or rubs. RESPIRATORY: on mech ventilation, Breath sounds equal bilaterally. scattered rhonchi, no wheezing. GASTROINTESTINAL: Abdomen soft, non-tender, nondistended. MUSCULOSKELETAL: No cyanosis, or edema. Neuro: Sedated, arousable, follows commands. A/P Assessment and Plan 1. Acute hypercapnic respiratory failure requiring intubation. 2. COPD. 3. Leukocytosis 4. Pneumonia 5. Mild acute kidney injury. 6. Hyperglycemia with underlying history of diabetes mellitus. 7. Peripheral vascular disease. 8. Morbid obesity. 9. Hypertension. Plan Neuro: On fentanyl infusion for sedation. Daily sedation vacation. Monitor neuro status closely. CT brain showed remote right occipital infarct. Pulm: Continue with vent support and maintain sats above 92%. Bronchodilators, ICU vent bundle. SBT daily as margaret CT chest showed pneumonia at bases R>L. CV: Monitor HR and BP maintain MAP>65 mmHg. 2-D echo with diastolic dysfunction. Echo from October of 2015 : EF 60-65% without RWMA Continue with aspirin and Plavix. Hold Lopressor in view of hypotension. : Monitor renal function Is and Os and electrolyte replacement as needed. On NS 42 ml an hour. Strict intake output, monitor and replete electrolytes, follow BUN/ creatinine. GI: On Protonix 40 mg IV daily for GI prophylaxis. Tolerating tube feeds ID: Continue with abx( Zosyn and azithromycin) vanco 1 gram x1 dose 1/2 Given cefepime and azithromycin in the ED. blood/ sputum and urine cultures negative Nasal washings negative for influenza A & B strep pneumoniae and Legionella urinary antigen negative. Heme: Monitor CBC and continue with ferrous sulfate, folic acid and multivitamins. Endo: SSI ( Medium) with Accu-Cheks for glycemic control. GI prophylaxis with Protonix 40 mg daily and DVT prophylaxis with SCDs and heparin subcu. CCT 30 mins Dwayne Nix MD Jun 07, 2016 19:35
[2016-06-07] MEDS: ATORVASTATIN 40 MG TAB PO SCH (22:30)
[2016-06-08] VITALS (19 sets, daily range): BP systolic 120–176; BP diastolic 60–76; PULSE 69–109; RESP 20–26; TEMP 98.5–99.9; O2SAT 69–97
[2016-06-08] MEDS: CHLORHEXIDINE GLUCONATE 2 % 1 PACK (2 CLOTHS) TOP SCH (03:21)
[2016-06-08] MEDS: PIPERACIL-TAZO 3.375 GM PREMIX 50 ML IV SCH ×4 (03:21→23:41)
[2016-06-08] MEDS: INSULIN NovoLIN REGULAR SUPPLEMENTAL SCALE SQ SCH ×4 (03:22→23:41)
[2016-06-08 04:25] LABS: AUTOMATED NEUTROPHIL # 6.7 TH/MM3 (1.8-7.7); BASOPHIL % 0.5 % (0.0-2.0); EOSINOPHIL # 0.1 TH/MM3 (0-0.4); EOSINOPHIL % 1.6 % (0.0-4.0); HEMATOCRIT 31.8 % (35.0-46.0); LYMPH % 14.7 % (9.0-44.0); LYMPHOCYTE # 1.4 TH/MM3 (1.0-4.8); MEAN CELL VOLUME 76.9 FL (80.0-100.0); MEAN CORPUSCULAR HEMOGLOBIN 23.2 PG (27.0-34.0); MEAN CORPUSCULAR HGB CONC 30.2 % (32.0-36.0); MONO % 10.1 % (0.0-8.0); NEUT % 73.1 % (16.0-70.0); PLATELET COUNT 255 TH/MM3 (150-450); RED BLOOD COUNT 4.13 MIL/MM3 (4.00-5.30); RED CELL DISTRIBUTION WIDTH 15.3 % (11.6-17.2); WHITE BLOOD COUNT 9.2 TH/MM3 (4.0-11.0)
[2016-06-08 04:26] LABS: HEMO FLAGS AUTO DIFF
[2016-06-08 04:57] LABS: ALT (GPT) 22 U/L (10-53); ANION GAP 5 MEQ/L (5-15); AST (GOT) 16 U/L (15-37); BICARBONATE 34.8 MEQ/L (21.0-32.0); BLOOD UREA NITROGEN 15 MG/DL (7-18); CHLORIDE 108 MEQ/L (98-107); GLOMERULAR FILTRATION RATE 62 ML/MIN (>89); SODIUM (NA) 148 MEQ/L (136-145)
[2016-06-08 05:00] LABS: ALKALINE PHOSPHATASE 79 U/L (45-117); TOTAL BILIRUBIN ADULT 0.4 MG/DL (0.2-1.0)
[2016-06-08] MEDS: HEPARIN SODIUM - SQ 10,000 UNITS/ML VIAL SQ SCH ×3 (05:46→23:41)
[2016-06-08] MEDS: CHLORHEXIDINE 0.12% (ORAL KIT) 15 ML CUP MT SCH (08:00)
[2016-06-08] MEDS: RESP: ALBUTEROL 2.5 MG/IPRATROPIUM 0.5 MG NEB (PRN) INH (08:30)
--- NOTE | 2016-06-08 09:54 | RADRPT ---
EXAM DATE/TIME: 06/08/2016 09:09 [facility] COMPARISON: CHEST SINGLE AP, June 06, 2016, 19:57. INDICATIONS : Respiratory disease. MEDICAL HISTORY : Chronic obstructive pulmonary disease. SURGICAL HISTORY : None. ENCOUNTER: Subsequent ACUITY: 4 - 6 days PAIN SCORE: Non-responsive. LOCATION: Bilateral chest FINDINGS: ET tube is in good position. Nasogastric tube is across the GE junction. Heart is enlarged. Increa sing interstitial edema is present. CONCLUSION: Cardiomegaly with increasing interstitial edema. This has progressed from 06/06/2016. Alex Arthur MD FACR on June 08, 2016 at 9:41 Board Certified Radiologist. This report was verified electronically.
[2016-06-08] MEDS: ASCORBIC ACID 500 MG TAB PO SCH ×2 (10:02→21:23)
[2016-06-08] MEDS: MULTIVITAMIN HEMATINIC THERAPEUTIC TAB PO SCH (10:02)
[2016-06-08] MEDS: ASPIRIN EC 81 MG TABEC PO SCH (10:02)
[2016-06-08] MEDS: PANTOPRAZOLE SODIUM 40 MG VIAL IV SCH (10:02)
[2016-06-08] MEDS: FOLIC ACID 1 MG TAB PO SCH (10:02)
[2016-06-08] MEDS: CLOPIDOGREL 75 MG TAB PO SCH (10:03)
[2016-06-08] MEDS: FERROUS SULFATE 325 MG (65 MG ELEMENTAL IRON) TAB PO SCH (10:04)
[2016-06-08] MEDS: METOPROLOL TARTRATE 25 MG TAB PO SCH ×2 (10:04→21:23)
[2016-06-08 10:13] LABS: SCAN/DIFF AUTO DIFF CONFIRMED
[2016-06-08] MEDS ORDERED: FUROSEMIDE 40 MG/4 ML VIAL IV PUSH ONE (11:45)
[2016-06-08] MEDS: SODIUM CHLOR 0.9% 1000 ML INJ 1,000 ML IV SCH (14:20)
[2016-06-08] MEDS: AZITHROMYCIN INJ 500 MG in SODIUM CHLOR 0.9% 250 ML INJ 250 ML IV SCH (14:21)
[2016-06-08] MEDS: hydrALAZINE HCL 20 MG/ML VIAL IV PUSH PRN (14:23)
--- NOTE | 2016-06-08 16:08 | HHI.CCPN ---
Subjective Remarks/Hospital Course Patient is 65-year-old female with past medical history of COPD, diabetes mellitus, peripheral vascular disease, rheumatoid arthritis, questionable CHF who was brought in to [facility] ED via EMS from assisted living facility for altered mental status and productive cough. The patient has had a history of productive cough for the past 3-4 days with thick brown phlegm. [facility] which was increased to 6 liters per report. No history of any chills or constitutional symptoms. This morning the patient was confused. ABG was performed on a BiPap which showed acute hypercapnic respiratory acidosis with a pH of 7.21, CO2 87, pAO2 72 and sat of 90%. The patient remained lethargic, unresponsive on a BiPap and she was subsequently intubated with etomidate, succinylcholine and placed on full mechanical ventilation. On arrival she had a blood pressure of 157/73 with a pulse of 96. Laboratory data significant for leukocytosis with a WBC of 14.0. Her CMP showed mild acute kidney injury with creatinine level of 1.62 and potassium of 4.5. Her lactic acid level measured at 0.7. BNP is 383. Due to altered mental status, CT scan of the brain was performed which showed remote right occipital infarct. A chest x-ray prior to intubation showed diffuse bilateral pulmonary infiltrates, cardiomegaly. In the ED she was given Solu-Medrol 125 mg IV push, bronchodilator treatment, cefepime and azithromycin. CT scan of the chest has been ordered by the ED staff. 06/04 No acute events overnight. Sedated with Fentanyl and intubated. CT chest from yesterday showed pneumonia. Afebrile. 06/05: Remains sedated, arousable, orally intubated on mechanical ventilation. Developed hypotension this morning for which she received 500 cc normal saline bolus. 06/06: Remains sedated, arousable, orally intubated on mechanical ventilation. Tolerating tube feeds. 06/07: Remains sedated, arousable, orally intubated on mechanical ventilation. Tolerating tube feeds. Thick respiratory secretions. 06/08: Sedated, easily arousable, orally intubated on mechanical ventilation. Tolerating tube feeds. Given Lasix 40 mg IV to mobilize fluid today. Objective Vital Signs Date Time Temp Pulse Resp B/P Pulse Ox O2 Delivery O2 Flow Rate FiO2 06/08/16 15:05 95 40 06/08/16 14:00 94 06/08/16 12:00 98.7 20 120/60 06/04/16 08:50 Ventilator Intake and Output 06/07/16 06/07/16 06/08/16 08:00 16:00 00:00 Intake Total 987 ml 971 ml 1118 ml Output Total 550 ml 1200 ml 1000 ml Balance 437 ml -229 ml 118 ml Result Diagram: 06/08/16 0330 06/08/16 0330 Imaging Last Impressions Head CT 06/03/16 1152 Signed Impressions: Service Date/Time: Friday, June 03, 2016 12:42 - CONCLUSION: Remote right occipital infarct again noted. Tu White MD Chest X-Ray 06/03/16 1152 Signed Impressions: Service Date/Time: Friday, June 03, 2016 12:19 - CONCLUSION: Probable CHF. Tu White MD Chest CT 06/03/16 0000 Signed Impressions: Service Date/Time: Friday, June 03, 2016 18:53 - CONCLUSION: Patchy pneumonia of both lung bases, especially the right lower lobe. Chito Arellano MD Objective Remarks GENERAL: Patient is 65yo intubated and sedated SKIN: Warm and dry. HEAD: Normocephalic. EYES: No scleral icterus. No injection or drainage. NECK: Supple, trachea midline. No JVD or lymphadenopathy. CARDIOVASCULAR: Regular rate and rhythm without murmurs, gallops, or rubs. RESPIRATORY: on mech ventilation, Breath sounds equal bilaterally. scattered rhonchi, no wheezing. GASTROINTESTINAL: Abdomen soft, non-tender, nondistended. MUSCULOSKELETAL: No cyanosis, or edema. Neuro: Sedated, arousable, follows commands. A/P Assessment and Plan 1. Acute hypercapnic respiratory failure requiring intubation. 2. COPD. 3. Leukocytosis 4. Pneumonia 5. Mild acute kidney injury. 6. Hyperglycemia with underlying history of diabetes mellitus. 7. Peripheral vascular disease. 8. Morbid obesity. 9. Hypertension. Plan Neuro: On fentanyl infusion for sedation. Daily sedation vacation. Monitor neuro status closely. CT brain showed remote right occipital infarct. Pulm: Continue with vent support and maintain sats above 92%. Bronchodilators, ICU vent bundle. Tolerating C Pap trial, ordered extubation. Will use BiPAP as needed following extubation and daily at bedtime. CT chest showed pneumonia at bases R>L. CV: Monitor HR and BP maintain MAP>65 mmHg. 2-D echo with diastolic dysfunction. Echo from October of 2015 : EF 60-65% without RWMA Continue with aspirin and Plavix. Hold Lopressor in view of hypotension. Lasix 40 mg IV 1 on 06/08 to mobilize fluid. : Monitor renal function Is and Os and electrolyte replacement as needed. KVO IV fluids. Lasix 40 mg IV 1 to mobilize fluid. Strict intake output, monitor and replete electrolytes, follow BUN/ creatinine. GI: On Protonix 40 mg IV daily for GI prophylaxis. Tolerating tube feeds - held for extubation ID: Continue with Zosyn. Stop azithromycin(completed 5 days of Rx) on 06/08. vanco 1 gram x1 dose 1/2 Given cefepime and azithromycin in the ED. blood/ sputum and urine cultures negative Nasal washings negative for influenza A & B strep pneumoniae and Legionella urinary antigen negative. Heme: Monitor CBC and continue with ferrous sulfate, folic acid and multivitamins. Endo: SSI ( Medium) with Accu-Cheks for glycemic control. GI prophylaxis with Protonix 40 mg daily and DVT prophylaxis with SCDs and heparin subcu. Dwayne Nix MD Jun 08, 2016 16:08
[2016-06-08 17:58] LABS: BLOOD GAS CARBOXYHEMOGLOBIN 1.6 % (0-4); BLOOD GAS HCO3 33 mmol/L (22-26); BLOOD GAS METHEMOGLOBIN 1.3 % (0-2); BLOOD GAS O2 HGB SATURATION 87 % (90-100); BLOOD GAS OXYGEN CONTENT 13.9 Vol % (12.0-20.0); BLOOD GAS PCO2 53 mmHg (38-42); BLOOD GAS PO2 57 mmHg (61-120); BLOOD GAS TOTAL HGB 11.4 G/DL (12.0-16.0); TEMP CORR TO 98.6
[2016-06-08 17:59] LABS: CRITICAL VALUE YES; DRAW SITE RT RADIAL; FIO2 36 %; LITER FLOW 4 L/M; NUMBER OF ARTERIAL PUNCTURES 1; OXYGEN DEVICE NASAL CANNULA; STAT NO; ULNAR PULSE PRESENT
[2016-06-08] MEDS: ATORVASTATIN 40 MG TAB PO SCH (21:23)
[2016-06-08] MEDS: methylPREDNISolone SOD SUCC 40 MG/1 ML VIAL IV PUSH SCH (23:40)
[2016-06-09] VITALS (16 sets, daily range): BP systolic 134–185; BP diastolic 70–89; PULSE 78–104; RESP 22–24; TEMP 96–99.6; O2SAT 87–99
[2016-06-09] MEDS: CHLORHEXIDINE GLUCONATE 2 % 1 PACK (2 CLOTHS) TOP SCH (04:00)
[2016-06-09] MEDS: HEPARIN SODIUM - SQ 10,000 UNITS/ML VIAL SQ SCH ×2 (07:09→14:38)
[2016-06-09] MEDS: PIPERACIL-TAZO 3.375 GM PREMIX 50 ML IV SCH ×3 (07:09→18:54)
[2016-06-09] MEDS: methylPREDNISolone SOD SUCC 40 MG/1 ML VIAL IV PUSH SCH ×2 (07:09→18:54)
[2016-06-09] MEDS: INSULIN NovoLIN REGULAR SUPPLEMENTAL SCALE SQ SCH ×3 (07:10→15:00)
[2016-06-09 07:30] LABS: MEAN CORPUSCULAR HGB CONC 29.7 % (32.0-36.0)
[2016-06-09] MEDS: CHLORHEXIDINE 0.12% (ORAL KIT) 15 ML CUP MT SCH (08:00)
[2016-06-09] MEDS: MULTIVITAMIN HEMATINIC THERAPEUTIC TAB PO SCH (09:15)
[2016-06-09] MEDS: CLOPIDOGREL 75 MG TAB PO SCH (09:15)
[2016-06-09] MEDS ORDERED: ALTEPLASE RECOMBINANT 2 MG VIAL ONE (09:15)
[2016-06-09] MEDS: ASCORBIC ACID 500 MG TAB PO SCH (09:15)
[2016-06-09] MEDS: ASPIRIN EC 81 MG TABEC PO SCH (09:15)
[2016-06-09] MEDS: METOPROLOL TARTRATE 25 MG TAB PO SCH (09:15)
[2016-06-09] MEDS: FOLIC ACID 1 MG TAB PO SCH (09:15)
[2016-06-09] MEDS: FERROUS SULFATE 325 MG (65 MG ELEMENTAL IRON) TAB PO SCH (09:15)
[2016-06-09] MEDS: PANTOPRAZOLE SODIUM 40 MG VIAL IV SCH (09:16)
[2016-06-09 12:04] LABS: AUTOMATED NEUTROPHIL # 8.9 TH/MM3 (1.8-7.7); BASOPHIL # 0.1 TH/MM3 (0-0.2); BASOPHIL % 1.3 % (0.0-2.0); HEMATOCRIT 35.9 % (35.0-46.0); LYMPH % 6.3 % (9.0-44.0); LYMPHOCYTE # 0.6 TH/MM3 (1.0-4.8); MEAN CELL VOLUME 77.8 FL (80.0-100.0); MEAN CORPUSCULAR HEMOGLOBIN 23.1 PG (27.0-34.0); MONO % 3.3 % (0.0-8.0); NEUT % 89.1 % (16.0-70.0); PLATELET COUNT 235 TH/MM3 (150-450); RED BLOOD COUNT 4.62 MIL/MM3 (4.00-5.30); RED CELL DISTRIBUTION WIDTH 15.3 % (11.6-17.2)
[2016-06-09 12:12] LABS: HEMO FLAGS AUTO DIFF
[2016-06-09 12:19] LABS: ALT (GPT) 22 U/L (10-53); ANION GAP 8 MEQ/L (5-15); AST (GOT) 15 U/L (15-37); BICARBONATE 28.4 MEQ/L (21.0-32.0); CHLORIDE 104 MEQ/L (98-107); GLOMERULAR FILTRATION RATE 58 ML/MIN (>89); POTASSIUM 4.4 MEQ/L (3.5-5.1); SODIUM (NA) 140 MEQ/L (136-145)
[2016-06-09 12:21] LABS: ALKALINE PHOSPHATASE 79 U/L (45-117); TOTAL BILIRUBIN ADULT 0.6 MG/DL (0.2-1.0)
[2016-06-09 12:22] LABS: BLOOD UREA NITROGEN 20 MG/DL (7-18)
[2016-06-09 12:47] LABS: BANDS 8 % (0-6); MYELOCYTES 2 % (0-0); NEUTROPHIL # MANUAL DIFF 8.5 TH/MM3 (1.8-7.7); POLYS (SEG NEUTROPHILS) 75 % (16-70); WBC DIFF SAMPLE 100
[2016-06-09 12:48] LABS: OVALOCYTES 1+ (NORMAL); PLATELET ESTIMATE SMEAR NORMAL (NORMAL); PLATELET MORPHOLOGY NORMAL (NORMAL); SCAN/DIFF FINAL DIFF MANUAL
--- NOTE | 2016-06-09 15:17 | HHI.CCPN ---
Subjective Remarks/Hospital Course Patient is 65-year-old female with past medical history of COPD, diabetes mellitus, peripheral vascular disease, rheumatoid arthritis, questionable CHF who was brought in to [facility] ED via EMS from assisted living facility for altered mental status and productive cough. The patient has had a history of productive cough for the past 3-4 days with thick brown phlegm. She is usually on 4 liters oxygen at the assisted continuously which was increased to 6 liters per report. No history of any chills or constitutional symptoms. This morning the patient was confused. ABG was performed on a BiPap which showed acute hypercapnic respiratory acidosis with a pH of 7.21, CO2 87, pAO2 72 and sat of 90%. The patient remained lethargic, unresponsive on a BiPap and she was subsequently intubated with etomidate, succinylcholine and placed on full mechanical ventilation. On arrival she had a blood pressure of 157/73 with a pulse of 96. Laboratory data significant for leukocytosis with a WBC of 14.0. Her CMP showed mild acute kidney injury with creatinine level of 1.62 and potassium of 4.5. Her lactic acid level measured at 0.7. BNP is 383. Due to altered mental status, CT scan of the brain was performed which showed remote right occipital infarct. A chest x-ray prior to intubation showed diffuse bilateral pulmonary infiltrates, cardiomegaly. In the ED she was given Solu-Medrol 125 mg IV push, bronchodilator treatment, cefepime and azithromycin. CT scan of the chest has been ordered by the ED staff. 06/04 No acute events overnight. Sedated with Fentanyl and intubated. CT chest from yesterday showed pneumonia. Afebrile. 06/05: Remains sedated, arousable, orally intubated on mechanical ventilation. Developed hypotension this morning for which she received 500 cc normal saline bolus. 06/06: Remains sedated, arousable, orally intubated on mechanical ventilation. Tolerating tube feeds. 06/07: Remains sedated, arousable, orally intubated on mechanical ventilation. Tolerating tube feeds. Thick respiratory secretions. 06/08: Sedated, easily arousable, orally intubated on mechanical ventilation. Tolerating tube feeds. Given Lasix 40 mg IV to mobilize fluid today. 06/09: Extubated yesterday. Tolerating nasal cannula. Was on BiPAP overnight. Diuresed well with Lasix and Diamox yesterday. Hungry this morning at the time of my evaluation and was placed on a diet. Appears comfortable. Objective Vital Signs Date Time Temp Pulse Resp B/P Pulse Ox O2 Delivery O2 Flow Rate FiO2 06/09/16 08:28 94 Nasal Cannula 4.00 06/09/16 08:00 99.0 104 24 145/89 06/09/16 06:00 40 Intake and Output 06/08/16 06/08/16 06/09/16 08:00 16:00 00:00 Intake Total 615 ml 1128 ml 826 ml Output Total 350 ml 900 ml 3750 ml Balance 265 ml 228 ml -2924 ml Result Diagram: 06/09/16 1137 06/09/16 1137 Other Results Laboratory Tests Test 06/08/16 17:48 Blood Gas Puncture Site RT RADIAL Blood Gas Patient Temperature 98.6 Blood Gas HCO3 33 mmol/L (22-26) Blood Gas Base Excess 8.0 mmol/L (-2-2) Blood Gas Oxygen Saturation 87 % (90-100) Arterial Blood pH 7.41 (7.380-7.420) Arterial Blood Partial 53 mmHg (38-42) Pressure CO2 Arterial Blood Partial 57 mmHg Pressure O2 (61-120) Arterial Blood Oxygen Content 13.9 Vol % (12.0-20.0) Arterial Blood 1.6 % (0-4) Carboxyhemoglobin Arterial Blood Methemoglobin 1.3 % (0-2) Blood Gas Hemoglobin 11.4 G/DL (12.0-16.0) Oxygen Delivery Device NASAL CANNULA Blood Gas Liter Flow 4 L/M Blood Gas Inspired Oxygen 36 % Imaging Last Impressions Head CT 06/03/16 1152 Signed Impressions: Service Date/Time: Friday, June 03, 2016 12:42 - CONCLUSION: Remote right occipital infarct again noted. Tu White MD Chest X-Ray 06/03/16 1152 Signed Impressions: Service Date/Time: Friday, June 03, 2016 12:19 - CONCLUSION: Probable CHF. Tu White MD Chest CT 06/03/16 0000 Signed Impressions: Service Date/Time: Friday, June 03, 2016 18:53 - CONCLUSION: Patchy pneumonia of both lung bases, especially the right lower lobe. Chito Arellano MD Objective Remarks GENERAL: Patient is 65y/o morbidly obese female, sitting up in bed not in any acute distress SKIN: Warm and dry. HEAD: Normocephalic. EYES: No scleral icterus. No injection or drainage. NECK: Supple, trachea midline. No JVD or lymphadenopathy. CARDIOVASCULAR: Regular rate and rhythm without murmurs, gallops, or rubs. RESPIRATORY: Breath sounds equal bilaterally. scattered rhonchi, no wheezing. GASTROINTESTINAL: Abdomen soft, non-tender, nondistended. Bowel sounds sluggish MUSCULOSKELETAL/extremities: No cyanosis, or edema. Right foot with muscle wasting and scarring from calf down Neuro: Awake alert oriented 3, nonfocal grossly A/P Assessment and Plan 1. Acute hypercapnic respiratory failure 2. COPD. 3. Leukocytosis 4. Pneumonia 5. Mild acute kidney injury. 6. Hyperglycemia with underlying history of diabetes mellitus. 7. Peripheral vascular disease. 8. Morbid obesity. 9. Hypertension. Plan Neuro: Off all sedation Monitor neuro status. CT brain showed remote right occipital infarct. Pulm: Bronchodilators, ICU vent bundle. Extubated on 06/08, on nasal cannula and tolerating well. BiPAP used at night and when necessary. Patient has history of CO2 retention. CT chest showed pneumonia at bases R>L. CV: Monitor HR and BP maintain MAP>65 mmHg. 2-D echo with diastolic dysfunction. Echo from October of 2015 : EF 60-65% without RWMA Continue with aspirin and Plavix. Resume Lopressor. Lasix 40 mg IV 1/ Diamox 500 mg IV 1 on 06/08 to mobilize fluid. Resume Lasix 20 mg by mouth twice a day : KVO IV fluids. Lasix 20 mg by mouth twice a day. Strict intake output, monitor and replete electrolytes, follow BUN/ creatinine. GI: On Protonix 40 mg IV daily for GI prophylaxis. Advance to 1800 ADA diet. ID: Continue with Zosyn. Stopped azithromycin(completed 5 days of Rx) on 06/08. vanco 1 gram x1 dose 1/2 Given cefepime and azithromycin in the ED. blood/ sputum and urine cultures negative Nasal washings negative for influenza A & B strep pneumoniae and Legionella urinary antigen negative. Heme: Monitor CBC and continue with ferrous sulfate, folic acid and multivitamins. Endo: SSI ( Medium) with Accu-Cheks for glycemic control. GI prophylaxis with Protonix 40 mg daily and DVT prophylaxis with SCDs and heparin subcu. We'll consult and transfer to hospitalist service for further medical management. We'll consult pulmonary in a.m. to follow for respiratory failure/ COPD/probable obstructive sleep apnea syndrome. Dwayne Nix MD Jun 09, 2016 15:17
[2016-06-09] MEDS: FUROSEMIDE 20 MG TAB PO SCH (18:53)
[2016-06-10] VITALS (16 sets, daily range): BP systolic 114–147; BP diastolic 58–83; PULSE 63–98; RESP 16–28; TEMP 94.8–98.8; O2SAT 20–99
[2016-06-10] MEDS: ATORVASTATIN 40 MG TAB PO SCH ×2 (01:06→21:10)
[2016-06-10] MEDS: INSULIN DETEMIR 100 UNITS/ML VIAL SQ SCH ×2 (01:06→21:10)
[2016-06-10] MEDS: ASCORBIC ACID 500 MG TAB PO SCH ×3 (01:06→21:10)
[2016-06-10] MEDS: METOPROLOL TARTRATE 25 MG TAB PO SCH ×3 (01:06→21:10)
[2016-06-10] MEDS: PIPERACIL-TAZO 3.375 GM PREMIX 50 ML IV SCH ×5 (01:07→22:12)
[2016-06-10] MEDS: INSULIN NovoLIN REGULAR SUPPLEMENTAL SCALE SQ SCH ×5 (01:21→21:10)
[2016-06-10 03:08] LABS: AUTOMATED NEUTROPHIL # 7.9 TH/MM3 (1.8-7.7); BASOPHIL % 0.1 % (0.0-2.0); HEMATOCRIT 33.7 % (35.0-46.0); LYMPH % 7.6 % (9.0-44.0); LYMPHOCYTE # 0.7 TH/MM3 (1.0-4.8); MEAN CELL VOLUME 76.4 FL (80.0-100.0); MONO % 3.8 % (0.0-8.0); NEUT % 88.5 % (16.0-70.0); PLATELET COUNT 281 TH/MM3 (150-450); RED BLOOD COUNT 4.41 MIL/MM3 (4.00-5.30); RED CELL DISTRIBUTION WIDTH 15.3 % (11.6-17.2); WHITE BLOOD COUNT 8.9 TH/MM3 (4.0-11.0)
[2016-06-10 03:10] LABS: HEMO FLAGS AUTO DIFF
[2016-06-10 03:22] LABS: ALT (GPT) 19 U/L (10-53); ANION GAP 5 MEQ/L (5-15); AST (GOT) 11 U/L (15-37); BICARBONATE 31.4 MEQ/L (21.0-32.0); BLOOD UREA NITROGEN 26 MG/DL (7-18); CHLORIDE 100 MEQ/L (98-107); GLOMERULAR FILTRATION RATE 50 ML/MIN (>89); POTASSIUM 4.6 MEQ/L (3.5-5.1); SODIUM (NA) 136 MEQ/L (136-145)
[2016-06-10 03:24] LABS: ALKALINE PHOSPHATASE 67 U/L (45-117); TOTAL BILIRUBIN ADULT 0.4 MG/DL (0.2-1.0)
[2016-06-10 03:58] LABS: BANDS 2 % (0-6); MYELOCYTES 1 % (0-0); NEUTROPHIL # MANUAL DIFF 7.6 TH/MM3 (1.8-7.7); POLYS (SEG NEUTROPHILS) 82 % (16-70); SCAN/DIFF FINAL DIFF MANUAL; WBC DIFF SAMPLE 100
[2016-06-10 03:59] LABS: OVALOCYTES 1+ (NORMAL); PLATELET ESTIMATE SMEAR NORMAL (NORMAL); PLATELET MORPHOLOGY NORMAL (NORMAL)
--- NOTE | 2016-06-10 04:41 | RADRPT ---
EXAM DATE/TIME: 06/10/2016 03:43 [facility] COMPARISON: CHEST SINGLE AP, June 08, 2016, 9:09. INDICATIONS : Shortness of breath, possible pulmonary disease. MEDICAL HISTORY : Chronic obstructive pulmonary disease. SURGICAL HISTORY : None. ENCOUNTER: Subsequent ACUITY: 4 - 6 days PAIN SCORE: Non-responsive. LOCATION: Bilateral chest FINDINGS: A single view of the chest demonstrates cardiomegaly and bilateral perihilar airspace disease slightl y improved. Right-sided PICC line stable. Endotracheal tube removed. The cardiomediastinal contours a re unremarkable. Osseous structures are intact. CONCLUSION: Cardiomegaly with improving bilateral perihilar air space disease. Dany Quick MD on June 10, 2016 at 4:40 Board Certified Radiologist. This report was verified electronically.
[2016-06-10] MEDS: methylPREDNISolone SOD SUCC 40 MG/1 ML VIAL IV PUSH SCH (06:15)
[2016-06-10] MEDS: HEPARIN SODIUM - SQ 10,000 UNITS/ML VIAL SQ SCH ×3 (06:15→22:12)
[2016-06-10] MEDS: CLOPIDOGREL 75 MG TAB PO SCH (08:14)
[2016-06-10] MEDS: ASPIRIN EC 81 MG TABEC PO SCH (08:14)
[2016-06-10] MEDS: FOLIC ACID 1 MG TAB PO SCH (08:14)
[2016-06-10] MEDS: FUROSEMIDE 20 MG TAB PO SCH ×2 (08:15→17:11)
[2016-06-10] MEDS: MULTIVITAMIN HEMATINIC THERAPEUTIC TAB PO SCH (08:15)
[2016-06-10] MEDS: FERROUS SULFATE 325 MG (65 MG ELEMENTAL IRON) TAB PO SCH (08:15)
[2016-06-10] MEDS: PANTOPRAZOLE SODIUM 40 MG VIAL IV SCH (08:15)
--- NOTE | 2016-06-10 13:53 | HHI.PR ---
Subjective Remarks Follow up for acute hypercapnic respiratory failure, pneumonia. Patient is currently doing well. No CP, fever, chills. She is still on 5 L of O2 via nasal cannula. Objective Vitals Vital Signs Date Time Temp Pulse Resp B/P Pulse Ox O2 Delivery O2 Flow Rate FiO2 06/10/16 10:00 71 06/10/16 08:45 94 Nasal Cannula 6.00 06/10/16 08:00 96 Nasal Cannula 4.00 06/10/16 08:00 63 06/10/16 06:00 77 06/10/16 04:00 94.8 65 18 122/58 20 06/10/16 04:00 77 06/10/16 03:05 99 40 06/10/16 00:58 95 Nasal Cannula 4.00 06/10/16 00:00 98.8 76 20 147/66 96 06/10/16 00:00 76 06/10/16 00:00 98.8 76 18 147/66 95 06/10/16 00:00 65 06/09/16 22:12 96 35 06/09/16 22:00 78 06/09/16 20:33 20 06/09/16 20:07 96 35 06/09/16 20:05 95 Nasal Cannula 4.00 06/09/16 20:00 98.0 78 22 150/70 96 06/09/16 20:00 78 06/09/16 20:00 93 Nasal Cannula 4.00 06/09/16 16:00 98.5 89 24 164/78 I/O 06/09/16 06/09/16 06/09/16 06/10/16 06/10/16 06/10/16 07:00 15:00 23:00 07:00 15:00 23:00 Intake Total 960 ml 300 ml 200 ml Output Total 1900 ml 600 ml 700 ml Balance -940 ml -300 ml -500 ml Intake Oral 960 ml 300 ml 200 ml Output Urine Total 1900 ml 600 ml 700 ml # Bowel Movements 1 Result Diagram: 06/10/16 0230 06/10/16 0230 Imaging Last Impressions Chest X-Ray 06/10/16 0600 Signed Impressions: Service Date/Time: Friday, June 10, 2016 03:43 - CONCLUSION: Cardiomegaly with improving bilateral perihilar air space disease. Dany Quick MD Head CT 06/03/16 1152 Signed Impressions: Service Date/Time: Friday, June 03, 2016 12:42 - CONCLUSION: Remote right occipital infarct again noted. Tu White MD Chest CT 06/03/16 0000 Signed Impressions: Service Date/Time: Friday, June 03, 2016 18:53 - CONCLUSION: Patchy pneumonia of both lung bases, especially the right lower lobe. Chito Arellano MD Objective Remarks GENERAL: AOx3, NAD, Morbidly obese. SKIN: Warm and dry. HEAD: Normocephalic. EYES: No scleral icterus. No injection or drainage. NECK: Supple, trachea midline. No JVD or lymphadenopathy. CARDIOVASCULAR: Regular rate and rhythm without murmurs, gallops, or rubs. RESPIRATORY: Breath sounds equal bilaterally. Scattered rhonchi. No accessory muscle use. No wheezing appreciated. GASTROINTESTINAL: Abdomen soft, non-tender, nondistended. MUSCULOSKELETAL: No cyanosis, or edema. BACK: Nontender without obvious deformity. No CVA tenderness. Procedures None. A/P Assessment and Plan Neuro: Off all sedation Monitor neuro status. CT brain showed remote right occipital infarct. Pulm: Extubated on 06/08, on nasal cannula and tolerating well. BiPAP used at night and when necessary. Patient has history of CO2 retention. CT chest showed pneumonia at bases R>L. Continue Zosyn. - Continue to reduce oxygen requirements. CV: Monitor HR and BP maintain MAP>65 mmHg. 2-D echo with diastolic dysfunction. Echo from October of 2015 : EF 60-65% without RWMA Continue with aspirin and Plavix. Resume Lopressor. Lasix 40 mg IV 1/ Diamox 500 mg IV 1 on 06/08 to mobilize fluid. Resume Lasix 20 mg by mouth twice a day : KVO IV fluids. Lasix 20 mg by mouth twice a day. Strict intake output, monitor and replete electrolytes, follow BUN/ creatinine. GI: On Protonix 40 mg IV daily for GI prophylaxis. Advance to 1800 ADA diet. ID: Continue with Zosyn. Stopped azithromycin(completed 5 days of Rx) on 06/08. vanco 1 gram x1 dose 1/2 Given cefepime and azithromycin in the ED. blood/ sputum and urine cultures negative Nasal washings negative for influenza A & B strep pneumoniae and Legionella urinary antigen negative. Heme: Monitor CBC and continue with ferrous sulfate, folic acid and multivitamins. Endo: SSI ( Medium) with Accu-Cheks for glycemic control. GI prophylaxis with Protonix 40 mg daily and DVT prophylaxis with SCDs and heparin subcu. Katia Correia DO Jun 10, 2016 13:53
[2016-06-10] MEDS: CHLORHEXIDINE GLUCONATE 2 % 1 PACK (2 CLOTHS) TOP SCH (19:43)
[2016-06-10] MEDS: CHLORHEXIDINE 0.12% (ORAL KIT) 15 ML CUP MT SCH (19:43)
[2016-06-10] MEDS: predniSONE 20 MG TAB PO SCH (21:10)
[2016-06-11] VITALS (16 sets, daily range): BP systolic 127–158; BP diastolic 62–77; PULSE 64–93; RESP 21–30; TEMP 98.3–98.7; O2SAT 88–100
[2016-06-11] MEDS: INSULIN NovoLIN REGULAR SUPPLEMENTAL SCALE SQ SCH ×4 (02:54→20:38)
[2016-06-11] MEDS: HEPARIN SODIUM - SQ 10,000 UNITS/ML VIAL SQ SCH ×3 (05:16→22:14)
[2016-06-11] MEDS: PIPERACIL-TAZO 3.375 GM PREMIX 50 ML IV SCH ×4 (05:16→22:14)
[2016-06-11 05:53] LABS: AUTOMATED NEUTROPHIL # 7.9 TH/MM3 (1.8-7.7); BASOPHIL % 0.3 % (0.0-2.0); EOSINOPHIL % 0.3 % (0.0-4.0); HEMATOCRIT 31.8 % (35.0-46.0); LYMPH % 8.6 % (9.0-44.0); LYMPHOCYTE # 0.8 TH/MM3 (1.0-4.8); MEAN CELL VOLUME 75.2 FL (80.0-100.0); MEAN CORPUSCULAR HEMOGLOBIN 23.7 PG (27.0-34.0); MEAN CORPUSCULAR HGB CONC 31.6 % (32.0-36.0); MONO % 5.1 % (0.0-8.0); NEUT % 85.7 % (16.0-70.0); PLATELET COUNT 275 TH/MM3 (150-450); RED BLOOD COUNT 4.23 MIL/MM3 (4.00-5.30); WHITE BLOOD COUNT 9.2 TH/MM3 (4.0-11.0)
[2016-06-11 05:57] LABS: HEMO FLAGS AUTO DIFF
[2016-06-11 06:20] LABS: ALKALINE PHOSPHATASE 64 U/L (45-117); ALT (GPT) 18 U/L (10-53); ANION GAP 6 MEQ/L (5-15); AST (GOT) 7 U/L (15-37); BICARBONATE 31.5 MEQ/L (21.0-32.0); BLOOD UREA NITROGEN 31 MG/DL (7-18); CHLORIDE 100 MEQ/L (98-107); GLOMERULAR FILTRATION RATE 55 ML/MIN (>89); POTASSIUM 4.5 MEQ/L (3.5-5.1); SODIUM (NA) 137 MEQ/L (136-145); TOTAL BILIRUBIN ADULT 0.3 MG/DL (0.2-1.0)
--- NOTE | 2016-06-11 07:33 | MB ---
cc: JENNIFER FINNEGAN DATE OF CONSULTATION 06/10/2016 REASON FOR CONSULTATION Respiratory failure and COPD. PRESENT ILLNESS This is a 65-year-old overweight female with a history of diabetes, COPD and rheumatoid arthritis who was admitted to [facility] with complaints of altered mental status. The patient was brought in from an assisted living facility and has been coughing for the past few days and bringing up thick brownish yellow mucous. She has been on home oxygen at three to four liters and apparently her oxygen sat had increased and the patient was disoriented and the patient was noted to be hypercapnic with a pCO2 in the 80's, partial pressure of oxygen in the 70s. BiPap was placed and she has been in the intensive care unit. Today, however, she is on a nasal cannula at four liters and is alert and conversing and seemed to have less shortness of breath. PAST HISTORY The patient's past history has included: 1. History of hypertension. 2. History of congestive heart failure. 3. Gastroesophageal reflux 4. She has had rheumatoid arthritis. 5. Chronic bronchitis 6. Peripheral vascular disease 7. Extreme obesity 8. Obstructive sleep apnea 9. Depression PAST SURGICAL HISTORY Includes: 1. 2. History of iliac artery stent on the right. 3. Cataract repairs 4. Partial hysterectomy HABITS The patient does not smoke. No alcohol use. [facility] resident. FAMILY HISTORY Noncontributory ALLERGIES None listed. MEDICATIONS List was reviewed from the chart. PHYSICAL EXAMINATION This is a very obese, middle-aged -Citizen Of [place] female who is alert and pale, mildly dyspneic at rest. VITAL SIGNS: Blood pressure 145/80, pulse 82, respirations are 20, temperature 98.2. HEENT: Head normocephalic. Pupils reactive. Tongue is moist. Nasal mucosa injected. Throat is mildly injected. NECK: Supple. No bruits or thyroid enlargement. CHEST: Distant breath sounds, expiratory wheezes throughout both lung south. Prolonged expirations. HEART: The heart sounds are irregular, S1-S2. No murmur, S3. ABDOMEN: Soft and benign. No masses, organomegaly or tenderness. Bowel sounds are active. EXTREMITIES: Varicosities, minimal peripheral edema. Reflexes 1+ with no gross motor deficits. NEUROLOGIC: Cranial nerves grossly intact. RECTAL: Exam is deferred. SKIN: No lesions. IMPRESSION 1. Acute hypercapnic respiratory failure resolved 2. Hypertension 3. Extreme obesity 4. History of CHF 5. Diabetes 6. Extreme obesity PLAN The patient will be maintained on O2 via nasal cannula at four to five liters to keep sats greater than 92, nebulized DuoNeb solution added q.i.d. and the patient will be maintained on BiPap at night 12/5 and 35% for sleep apnea. A sleep study will be arranged as an outpatient. Solu-Medrol 40 mg b.i.d. will be continued and follow up chest x-ray to be done in the a.m. as well as [facility]. The patient will have pulmonary function study when she is clinically stable and physiotherapy to be started as soon as possible. Thank you Dr. Gamboa for this consultation. Jennifer Finnegan MD JCHAO/ANABEL /11:21 PM /7:21 AM JARETH
[2016-06-11 07:55] LABS: PLATELET ESTIMATE SMEAR NORMAL (NORMAL); PLATELET MORPHOLOGY NORMAL (NORMAL); SCAN/DIFF AUTO DIFF CONFIRMED
[2016-06-11] MEDS: CHLORHEXIDINE 0.12% (ORAL KIT) 15 ML CUP MT SCH ×2 (08:00→19:58)
[2016-06-11] MEDS: MULTIVITAMIN HEMATINIC THERAPEUTIC TAB PO SCH (08:51)
[2016-06-11] MEDS: ASCORBIC ACID 500 MG TAB PO SCH ×2 (08:52→20:37)
[2016-06-11] MEDS: predniSONE 20 MG TAB PO SCH ×2 (08:52→20:37)
[2016-06-11] MEDS: CLOPIDOGREL 75 MG TAB PO SCH (08:52)
[2016-06-11] MEDS: FERROUS SULFATE 325 MG (65 MG ELEMENTAL IRON) TAB PO SCH (08:52)
[2016-06-11] MEDS: FUROSEMIDE 20 MG TAB PO SCH ×2 (08:52→17:06)
[2016-06-11] MEDS: METOPROLOL TARTRATE 25 MG TAB PO SCH ×2 (08:52→20:37)
[2016-06-11] MEDS: ASPIRIN EC 81 MG TABEC PO SCH (08:52)
[2016-06-11] MEDS: FOLIC ACID 1 MG TAB PO SCH (08:52)
[2016-06-11] MEDS: PANTOPRAZOLE SODIUM 40 MG VIAL IV SCH (08:53)
--- NOTE | 2016-06-11 15:18 | HHI.PR ---
Subjective Remarks Follow up for acute hypercapnic respiratory failure, pneumonia. Denies any chest pain, SOB, fever, chills. Inquires about moving to the floor. Tolerating diet well. Objective Vitals Vital Signs Date Time Temp Pulse Resp B/P Pulse Ox O2 Delivery O2 Flow Rate FiO2 06/11/16 12:00 75 06/11/16 12:00 98.4 76 30 129/62 90 06/11/16 10:00 78 06/11/16 08:54 92 Nasal Cannula 5.00 06/11/16 08:00 98.7 79 22 132/74 92 06/11/16 08:00 79 06/11/16 07:00 94 Nasal Cannula 4.00 06/11/16 06:46 92 Nasal Cannula 4.00 06/11/16 06:00 64 06/11/16 04:24 97 40 06/11/16 04:00 66 06/11/16 04:00 98.5 66 25 129/62 94 06/11/16 02:00 67 06/11/16 01:01 97 40 06/11/16 00:00 71 06/11/16 00:00 98.4 71 27 127/66 99 06/10/16 23:22 96 Nasal Cannula 4.00 06/10/16 23:00 100 Bi-Pap 35 06/10/16 23:00 97 40 06/10/16 22:00 95 06/10/16 20:00 98 06/10/16 20:00 98.2 98 28 114/65 97 06/10/16 19:00 96 Nasal Cannula 4.00 Humidified 06/10/16 18:15 17 06/10/16 18:00 85 06/10/16 16:00 98.3 92 16 131/60 93 06/10/16 16:00 82 I/O 06/10/16 06/10/16 06/10/16 06/11/16 06/11/16 06/11/16 07:00 15:00 23:00 07:00 15:00 23:00 Intake Total 200 ml 127 ml 535 ml 335 ml Output Total 700 ml 900 ml 550 ml 1000 ml Balance -500 ml -773 ml -15 ml -665 ml Intake Oral 200 ml 476 ml 250 ml IV Total 127 ml 59 ml 85 ml Output Urine Total 700 ml 900 ml 550 ml 1000 ml # Bowel Movements 0 0 Result Diagram: 1/10/17 0514 1/10/17 0514 Objective Remarks GENERAL: AOx3, NAD, Morbidly obese. SKIN: Warm and dry. HEAD: Normocephalic. EYES: No scleral icterus. No injection or drainage. NECK: Supple, trachea midline. No JVD or lymphadenopathy. CARDIOVASCULAR: Regular rate and rhythm without murmurs, gallops, or rubs. RESPIRATORY: Breath sounds equal bilaterally. Scattered rhonchi. No accessory muscle use. No wheezing appreciated. GASTROINTESTINAL: Abdomen soft, non-tender, nondistended. MUSCULOSKELETAL: No cyanosis, or edema. BACK: Nontender without obvious deformity. No CVA tenderness. Procedures None. A/P Assessment and Plan Neuro: Off all sedation Monitor neuro status. CT brain showed remote right occipital infarct. Pulm: Extubated on 06/08, on nasal cannula and tolerating well. BiPAP used at night and when necessary. Patient has history of CO2 retention. CT chest showed pneumonia at bases R>L. Continue Zosyn. - We can probably discontinue antibiotics upon discharge. Patient has received zosyn for more than 7 days. - Continue to reduce oxygen requirements. CV: Monitor HR and BP maintain MAP>65 mmHg. 2-D echo with diastolic dysfunction. Echo from October of 2015 : EF 60-65% without RWMA Continue with aspirin and Plavix. Resume Lopressor. Lasix 40 mg IV 1/ Diamox 500 mg IV 1 on 06/08 to mobilize fluid. Resume Lasix 20 mg by mouth twice a day : KVO IV fluids. Lasix 20 mg by mouth twice a day. Strict intake output, monitor and replete electrolytes, follow BUN/ creatinine. GI: On Protonix 40 mg IV daily for GI prophylaxis. Advance to 1800 ADA diet. ID: Continue with Zosyn. Stopped azithromycin(completed 5 days of Rx) on 06/08. vanco 1 gram x1 dose 1/2 Given cefepime and azithromycin in the ED. blood/ sputum and urine cultures negative Nasal washings negative for influenza A & B strep pneumoniae and Legionella urinary antigen negative. Heme: Monitor CBC and continue with ferrous sulfate, folic acid and multivitamins. Endo: SSI ( Medium) with Accu-Cheks for glycemic control. GI prophylaxis with Protonix 40 mg daily and DVT prophylaxis with SCDs and heparin subcu. Katia Correia DO Jun 11, 2016 15:18
--- NOTE | 2016-06-11 20:23 | HHI.PR ---
Subjective Remarks Feels tired .On O2 at 4 L. Used Bipap at HS. cannot sit up Objective Vital Signs Date Time Temp Pulse Resp B/P Pulse Ox O2 Delivery O2 Flow Rate FiO2 06/11/16 19:00 95 Nasal Cannula 5.00 06/11/16 18:00 79 06/11/16 16:00 83 06/11/16 16:00 98.3 86 21 134/63 92 06/11/16 14:00 88 06/11/16 12:00 75 06/11/16 12:00 98.4 76 30 129/62 90 06/11/16 10:00 78 06/11/16 08:54 92 Nasal Cannula 5.00 06/11/16 08:00 98.7 79 22 132/74 92 06/11/16 08:00 79 06/11/16 07:00 94 Nasal Cannula 4.00 06/11/16 06:46 92 Nasal Cannula 4.00 06/11/16 06:00 64 06/11/16 04:24 97 40 06/11/16 04:00 66 06/11/16 04:00 98.5 66 25 129/62 94 06/11/16 02:00 67 06/11/16 01:01 97 40 06/11/16 00:00 71 06/11/16 00:00 98.4 71 27 127/66 99 06/10/16 23:22 96 Nasal Cannula 4.00 06/10/16 23:00 100 Bi-Pap 35 06/10/16 23:00 97 40 06/10/16 22:00 95 I/O 06/10/16 06/10/16 06/10/16 06/11/16 06/11/16 06/11/16 07:00 15:00 23:00 07:00 15:00 23:00 Intake Total 200 ml 127 ml 535 ml 335 ml 720 ml Output Total 700 ml 900 ml 550 ml 1000 ml 1200 ml Balance -500 ml -773 ml -15 ml -665 ml -480 ml Intake Oral 200 ml 476 ml 250 ml 720 ml IV Total 127 ml 59 ml 85 ml Output Urine Total 700 ml 900 ml 550 ml 1000 ml 1200 ml # Bowel Movements 0 0 1 Result Diagram: 06/11/1651306/11/16513 Objective Remarks This is a very obese, middle-aged -[place] female who is alert and pale, mildly dyspneic at rest. HEENT: Head normocephalic. Pupils reactive. Tongue is moist. Nasal mucosa injected. Throat is clear NECK: Supple. No bruits or thyroid enlargement. CHEST: Distant breath sounds, expiratory wheezes throughout both lung south. Prolonged expirations. HEART: The heart sounds are irregular, S1-S2. No murmur, S3. ABDOMEN: Soft and benign. No masses, organomegaly or tenderness. Bowel sounds are active. EXTREMITIES: Varicosities, minimal peripheral edema.Right leg deformity . Reflexes 1+. NEUROLOGIC: Cranial nerves grossly intact. RECTAL: Exam is deferred. SKIN: No lesions. Assessment and Plan Assessment and Plan IMPRESSION 1. Acute hypercapnic respiratory failure resolved 2. Hypertension 3. Extreme obesity 4. History of CHF 5. Diabetes 6. Extreme obesity 1. Continue antibiotics. 2. Nebs qid , duoneb. 3. O2 at 5 L and wean. 4. Cont prednisone 20 mg bid. 5. Transfer to tele 6. Bipap at HS 12/5 CM , 30 % FIo2 Yuly Finnegan MD Jun 11, 2016 20:23
[2016-06-11] MEDS: INSULIN DETEMIR 100 UNITS/ML VIAL SQ SCH (20:38)
[2016-06-11] MEDS: ATORVASTATIN 40 MG TAB PO SCH (20:38)
[2016-06-12] VITALS (15 sets, daily range): BP systolic 133–157; BP diastolic 61–88; PULSE 61–89; RESP 20–24; TEMP 97.6–98.8; O2SAT 94–99
[2016-06-12] MEDS: CHLORHEXIDINE GLUCONATE 2 % 1 PACK (2 CLOTHS) TOP SCH (03:40)
[2016-06-12] MEDS: PIPERACIL-TAZO 3.375 GM PREMIX 50 ML IV SCH ×2 (03:40→09:40)
[2016-06-12] MEDS: INSULIN NovoLIN REGULAR SUPPLEMENTAL SCALE SQ SCH ×2 (03:40→09:00)
[2016-06-12] MEDS: HEPARIN SODIUM - SQ 10,000 UNITS/ML VIAL SQ SCH (06:02)
[2016-06-12] MEDS: CHLORHEXIDINE 0.12% (ORAL KIT) 15 ML CUP MT SCH (08:00)
[2016-06-12] MEDS: PANTOPRAZOLE SODIUM 40 MG VIAL IV SCH (08:54)
[2016-06-12] MEDS: FUROSEMIDE 20 MG TAB PO SCH (08:55)
[2016-06-12] MEDS: MULTIVITAMIN HEMATINIC THERAPEUTIC TAB PO SCH (08:55)
[2016-06-12] MEDS: FERROUS SULFATE 325 MG (65 MG ELEMENTAL IRON) TAB PO SCH (08:56)
[2016-06-12] MEDS: METOPROLOL TARTRATE 25 MG TAB PO SCH (08:56)
[2016-06-12] MEDS: CLOPIDOGREL 75 MG TAB PO SCH (08:56)
[2016-06-12] MEDS: ASCORBIC ACID 500 MG TAB PO SCH (08:56)
[2016-06-12] MEDS: ASPIRIN EC 81 MG TABEC PO SCH (08:56)
[2016-06-12] MEDS: predniSONE 20 MG TAB PO SCH (08:56)
[2016-06-12] MEDS: FOLIC ACID 1 MG TAB PO SCH (08:57)
--- NOTE | 2016-06-12 13:33 | HHI.PR ---
Objective Vitals Vital Signs Date Time Temp Pulse Resp B/P Pulse Ox O2 Delivery O2 Flow Rate FiO2 06/12/16 12:00 97.6 67 20 157/88 97 06/12/16 12:00 75 06/12/16 11:00 67 06/12/16 10:00 67 06/12/16 09:00 98 Nasal Cannula 4.00 06/12/16 09:00 76 06/12/16 08:00 98.7 69 22 151/67 99 06/12/16 08:00 89 06/12/16 07:30 99 Nasal Cannula 3.00 06/12/16 07:00 72 06/12/16 05:15 96 06/12/16 04:31 97 40 06/12/16 04:00 98.8 61 22 133/61 94 06/12/16 04:00 61 06/12/16 02:00 63 06/12/16 01:07 99 40 06/12/16 00:00 64 06/12/16 00:00 98.5 64 24 148/67 97 06/11/16 22:45 100 40 06/11/16 22:00 75 06/11/16 20:00 93 06/11/16 20:00 98.3 93 24 158/77 88 06/11/16 19:00 95 Nasal Cannula 5.00 06/11/16 18:00 79 06/11/16 16:00 83 06/11/16 16:00 98.3 86 21 134/63 92 06/11/16 14:00 88 I/O 06/11/16 06/11/16 06/11/16 06/12/16 06/12/16 06/12/16 07:00 15:00 23:00 07:00 15:00 23:00 Intake Total 335 ml 720 ml 195 ml 259 ml 240 ml Output Total 1000 ml 1200 ml 1275 ml 1250 ml 0 ml Balance -665 ml -480 ml -1080 ml -991 ml 240 ml Intake Oral 250 ml 720 ml 125 ml 125 ml 240 ml IV Total 85 ml 70 ml 134 ml Output Urine Total 1000 ml 1200 ml 1275 ml 1250 ml 0 ml # Bowel Movements 0 2 0 Result Diagram: 06/11/1651306/11/16513 Katia Correia DO Jun 12, 2016 13:33
[2016-06-12] MEDS ORDERED: LEVEMIR SQ (13:49)
[2016-06-12] MEDS ORDERED: OXYC1CAP PO (13:49)
[2016-06-12] MEDS ORDERED: PRED5PAK2 PO (13:49)
--- NOTE | 2016-06-12 13:51 | HHI.DS ---
Discharge Summary Admission Date Jun 03, 2016 at 14:52 Discharge Date: Jun 12, 2016 Admitting Diagnosis PNEUMOSEPSIS, HYPERCARBIC RESP FAILURE (1) Acute hypoxic and hypercarbic respiratory failure (2) Pneumonia ICD Code: J18.9 (3) Morbid obesity ICD Code: E66.01 Procedures None. Brief History - From Admission the patient is 65-year-old female with past medical history of COPD, diabetes mellitus, peripheral vascular disease, rheumatoid arthritis, questionable CHF who was brought in to [facility] ED via EMS from assisted living facility for altered mental status and productive cough. The patient has had a history of productive cough for the past 3-4 days with thick brown phlegm. She is usually on 4 liters oxygen at the [facility] continuously which was increased to 6 liters per report. No history of any chills or constitutional symptoms. This morning the patient was confused. ABG was performed on a BiPap which showed acute hypercapnic respiratory acidosis with a pH of 7.21, CO2 87, pAO2 72 and sat of 90%. The patient remained lethargic, unresponsive on a BiPap and she was subsequently intubated with etomidate, succinylcholine and placed on full mechanical ventilation. On arrival she had a blood pressure of 157/73 with a pulse of 96. Laboratory data significant for leukocytosis with a WBC of 14.0. Her CMP showed mild acute kidney injury with creatinine level of 1.62 and potassium of 4.5. Her lactic acid level measured at 0.7. BNP is 383. Due to altered mental status, CT scan of the brain was performed which showed remote right occipital infarct. A chest x-ray prior to intubation showed diffuse bilateral pulmonary infiltrates, cardiomegaly. In the ED she was given Solu-Medrol 125 mg IV push, bronchodilator treatment, cefepime and azithromycin. CBC/BMP: 06/11/16 0514 06/11/16 0514 Significant Findings Laboratory Tests Test 06/10/16 06/11/16 02:30 05:14 Hemoglobin 10.1 GM/DL 10.0 GM/DL (11.6-15.3) (11.6-15.3) Hematocrit 33.7 % 31.8 % (35.0-46.0) (35.0-46.0) Mean Corpuscular Volume 76.4 FL 75.2 FL (80.0-100.0) (80.0-100.0) Mean Corpuscular Hemoglobin 23.0 PG 23.7 PG (27.0-34.0) (27.0-34.0) Mean Corpuscular Hemoglobin 30.0 % 31.6 % Concent (32.0-36.0) (32.0-36.0) Neutrophils (%) (Auto) 88.5 % 85.7 % (16.0-70.0) (16.0-70.0) Lymphocytes (%) (Auto) 7.6 % 8.6 % (9.0-44.0) (9.0-44.0) Neutrophils # (Auto) 7.9 TH/MM3 7.9 TH/MM3 (1.8-7.7) (1.8-7.7) Lymphocytes # (Auto) 0.7 TH/MM3 0.8 TH/MM3 (1.0-4.8) (1.0-4.8) Neutrophils % (Manual) 82 % (16-70) Myelocytes 1 % (0-0) Basophilic Stippling FAINT (NORMAL) Ovalocytes 1+ (NORMAL) Blood Urea Nitrogen 26 MG/DL (7-18) 31 MG/DL (7-18) Creatinine 1.30 MG/DL 1.19 MG/DL (0.50-1.00) (0.50-1.00) Estimat Glomerular Filtration 50 ML/MIN (>89) 55 ML/MIN (>89) Rate Random Glucose 345 MG/DL 174 MG/DL (74-106) (74-106) Aspartate Amino Transf 11 U/L (15-37) 7 U/L (15-37) (AST/SGOT) Albumin 2.6 GM/DL 2.6 GM/DL (3.4-5.0) (3.4-5.0) Calcium Level 8.4 MG/DL (8.5-10.1) Imaging Last Impressions Chest X-Ray 06/10/16 0600 Signed Impressions: Service Date/Time: Friday, June 10, 2016 03:43 - CONCLUSION: Cardiomegaly with improving bilateral perihilar air space disease. Dany Quick MD Head CT 06/03/16 1152 Signed Impressions: Service Date/Time: Friday, June 03, 2016 12:42 - CONCLUSION: Remote right occipital infarct again noted. Tu White MD Chest CT 06/03/16 0000 Signed Impressions: Service Date/Time: Friday, June 03, 2016 18:53 - CONCLUSION: Patchy pneumonia of both lung bases, especially the right lower lobe. Chito Arellano MD Pt update on day of discharge Ms. Page is doing well. No acute concerns. She is currently doing well on 3L of O2 via [place]. Discussed with Dr. Finnegan (pulm) who is okay with D/C and follow up with him in 3-4 weeks. Patient will go back to [facility]. Hospital Course Neuro: Off all sedation Monitor neuro status. CT brain showed remote right occipital infarct. Pulm: Extubated on 06/08, on nasal cannula and tolerating well. BiPAP used at night and when necessary. Patient has history of CO2 retention. CT chest showed pneumonia at bases R>L. Continue Zosyn. - We can probably discontinue antibiotics upon discharge. Patient has received zosyn for more than 7 days. - Continue to reduce oxygen requirements. On the day of discharge, patient was on 3L of O2. - D/C abx on discharge. Continue tapered steroid. - Follow up with Pulmonary in the outpatient setting. CV: Monitor HR and BP maintain MAP>65 mmHg. 2-D echo with diastolic dysfunction. Echo from October of 2015 : EF 60-65% without RWMA Continue with aspirin and Plavix. Resume Lopressor. Lasix 40 mg IV 1/ Diamox 500 mg IV 1 on 06/08 to mobilize fluid. Resume Lasix 20 mg by mouth twice a day : KVO IV fluids. Lasix 20 mg by mouth twice a day. Strict intake output, monitor and replete electrolytes, follow BUN/ creatinine. GI: On Protonix 40 mg IV daily for GI prophylaxis. Advance to 1800 ADA diet. ID: Continue with Zosyn. Stopped azithromycin(completed 5 days of Rx) on 06/08. vanco 1 gram x1 dose /2 Given cefepime and azithromycin in the ED. blood/ sputum and urine cultures negative Nasal washings negative for influenza A & B strep pneumoniae and Legionella urinary antigen negative. Heme: Monitor CBC and continue with ferrous sulfate, folic acid and multivitamins. Endo: SSI ( Medium) with Accu-Cheks for glycemic control. GI prophylaxis with Protonix 40 mg daily and DVT prophylaxis with SCDs and heparin subcu. Pt Condition on Discharge: Good Discharge Disposition: Discharge to SNF Discharge Time: > 30 minutes Discharge Instructions DIET: Follow Instructions for: Diabetic Diet Activities you can perform: Regular-No Restrictions Follow up Referrals: Pulmonology - 3 Weeks with Yuly Finnegan MD New Medications: Prednisone (48) 5 mg tab Dose Pack (Prednisone (48) 5 mg tab Dose Pack) 5 Mg Dspk 5 MG PO DIRECTED Inflammation #1 Ref 0 DSPK Changed Medications: Insulin Detemir Inj (Levemir Inj) 1,000 unit/ 10 ML Vial 15 UNITS SQ HS Do not mix with any other Insulin. Blood Sugar Management Days 30 Ref 0 VIAL (Changed from: 45 UNITS) Continued Medications: Acetaminophen (Tylenol Extra Strength) 500 Mg Tab 1000 MG PO TID PRN PAIN 1-10 AND/OR FEVER >101F Ref 0 TAB Albuterol Neb (Albuterol Neb) 2.5 Mg/3 Ml Neb 2.5 MG NEB Q2HR PRN SHORTNESS OF BREATH #1 Ref 0 NEBULE Alprazolam (Xanax) 0.5 Mg Tab 0.5 MG PO BID PRN ANXIETY Ref 0 TAB Ascorbic Acid (Vitamin C) 500 Mg Tab 500 MG PO BID Nutritional Supplement Ref [address] (Aspirin Adult Low Strength) 81 Mg Tabdr 81 MG PO DAILY TAB Atorvastatin (Atorvastatin) 40 Mg Tab 40 MG PO HS Cholesterol Management #30 Ref 0 TAB Bisacodyl Supp (Dulcolax Supp) 10 Mg Supp 10 MG DC DIRECTED Give if no results 1 day after Milk of Mag PRN CONSTIPATION #12 Ref 0 SUPP Clopidogrel (Plavix) 75 Mg Tab 75 MG PO DAILY Blood Clot Prevention #30 Ref 0 TAB Ferrous Sulfate (Ferrous Sulfate) 325 Mg Tab 325 MG PO DAILY Nutritional Supplement #30 Ref 0 TAB Folic Acid (Folate) 1 Mg Tab 1 MG PO DAILY Nutritional Supplement Ref 0 TAB Furosemide (Lasix) 20 Mg Tab 20 MG PO BID #60 Ref 0 TAB Insulin Aspart Inj (Novolog Inj) 100 Unit/Ml Inj 2-12 UNITS SQ ACHS Sliding Scale: if 0-150=0 units, 151-200=2 units, 201-250=4 units, 251-300=8 units, 351-400=10 units, >400=12 units & call Lactic Acid (Ammonium Lactate) (Lac-Hydrin) 12% Lotn 1 APPLIC TOPICAL DAILY Apply to both lower extremities every evening shift #225 Ref 0 ML Losartan (Losartan) 50 Mg Tab 50 MG PO BID Blood Pressure Management #30 Ref 0 TAB Magnesium Citrate Liq (Citroma Liq) 300 Ml Liq 300 ML PO DIRECTED Give if no results 1 day after fleet enema PRN CONSTIPATION #1 Ref 0 BOTTLE Magnesium Hydroxide Liq (Milk of Magnesia Liq) 400 Mg/5 Ml Susp 30 ML PO DIRECTED PRN IF NO BM IN 3 DAYS #1 Ref 0 BOTTLE Metoprolol Tartrate (Metoprolol Tartrate) 25 Mg Tab 25 MG PO BID #60 Ref 0 TAB Multiple Vitamins W/ Minerals (Multi-Vitamin/Minerals) 1 Tab Tab 1 TAB PO DAILY Nutritional Supplement Oxycodone (Oxycodone) 5 Mg Cap 5 MG PO Q4H PRN SEVERE PAIN #20 Ref 0 CAP (This prescription has been renewed) Pantoprazole Liq (Protonix Liq) 40 Mg Pkt 40 MG PO DAILY Reflux #30 Ref 0 PKT Polyethylene Glycol 3350 Powder (Miralax Powder) 17 Gm Powd 17 GM PO DAILY Mix and dissolve one measuring capful (17 grams) in water,juice, soda, coffee or tea Constipation #1 Ref 0 BOTTLE Sennosides (Senna) 8.6 Mg Cap 17.2 MG PO BID Constipation Ref 0 CAP Sertraline (Sertraline) 50 Mg Tab 50 MG PO DAILY #30 Ref 0 TAB Silver Sulfadiazine Topical (Silvadene Topical) 1 % Cream 1 APPLIC TOPICAL DAILY Apply to rt lower leg after nss wash then cover w/dsd every evening shift Wound Management #50 Ref 0 GM Sitagliptin (Januvia) 50 Mg Tab 50 MG PO DAILY Blood Sugar Management #30 Ref 0 TAB Sodium Phosphates (Enema Iychy-Jo-Cfg) 1 Valentina Valentina 1 APPLIC DC DIRECTED Give if no results 1 day after Dulcolax Supp PRN CONSTIPATION Katia Correia DO Jun 12, 2016 13:51
== END 2016-06-12 17:10 | DRG 207 ==
LOC: NEPC 11:37 → NEDA 14:52 → HIMN 19:00 → HCIS 06-12 05:20
PROVIDERS: ADMIT Hospitalist; ATTEND Hospitalist
PROC: 5A1955Z Respiratory Ventilation, Greater than 96 Consecutive Hours (ICD-10-PCS; principal; 2016-06-03)
PROC: 0BH17EZ Insertion of Endotracheal Airway into Trachea, Via Natural or Artificial Opening (ICD-10-PCS; 2016-06-03)
DX: J96.02 Acute respiratory failure with hypercapnia (principal); J18.9 Pneumonia, unspecified organism; N17.9 Acute kidney failure, unspecified; J44.0 Chronic obstructive pulmonary disease with (acute) lower respiratory infection; E87.2 Acidosis; E87.1 Hypo-osmolality and hyponatremia; Z68.43 Body mass index [BMI] 50.0-59.9, adult; I95.9 Hypotension, unspecified; I50.9 Heart failure, unspecified; E11.51 Type 2 diabetes mellitus with diabetic peripheral angiopathy without gangrene; E11.65 Type 2 diabetes mellitus with hyperglycemia; J96.01 Acute respiratory failure with hypoxia; E66.01 Morbid (severe) obesity due to excess calories; H40.9 Unspecified glaucoma; I25.10 Atherosclerotic heart disease of native coronary artery without angina pectoris; I25.2 Old myocardial infarction; K21.9 Gastro-esophageal reflux disease without esophagitis; M06.9 Rheumatoid arthritis, unspecified; M24.574 Contracture, right foot; M21.6X1 Other acquired deformities of right foot; G47.33 Obstructive sleep apnea (adult) (pediatric); F32.9 Major depressive disorder, single episode, unspecified; F41.9 Anxiety disorder, unspecified; Y95 Nosocomial condition; Z79.4 Long term (current) use of insulin; Z99.81 Dependence on supplemental oxygen
CPT/HCPCS: 31500; 36569; 36600; 70450; 71010; 71250; 76937; 80048; 80053; 81001; 82140; 82805; 82948; 83605; 83735; 83880; 84484; 85007; 85025; 85027; 85610; 85730; 87040; 87070; 87086; 87205; 87449; 87641; 87804; 93005; 93306; 94002; 94003; 94640; 94664; 96374; 96375; C9113; J0330; J0360; J0456; J0692; J1120; J1642; J1644; J1940; J2250; J2543; J2920; J2930; J2997; J3010; J3370; J7030; J7040; J7050; J7512

== ENCOUNTER 2016-07-17 16:22 | Inpatient (IN) | payer MEDICAID ==
[~2016-07-17] VITALS: Ht 162.6 cm; Wt 137.4 kg
[2016-07-17] VITALS (11 sets, daily range): BP systolic 104–174; BP diastolic 51–107; PULSE 77–96; RESP 16–20; TEMP 98.2; O2SAT 65–100
[~2016-07-17 16:22] MED LIST changes: +ACET-703 PO; -ACET325 PO; +ALBU0.08 NEB; -ALBU25IPRN NEB; +ALPR.5 PO; -ASCO500 PO; +ASPI1TAB91 PO; -ASPI81TA21 PO; +ATOR40TA16 PO; -ATOR40TA49 PO; -AZIT250T74 PO; -BISA10R PR; +CITRSOL4 PO; -CLOP75 PO; +DULC10SU3 PR; -DUONI NEB; +FERR325T PO; -FLEEENE3 PR; -FOLI1 PO; +FOLI1TAB4 PO; +FURO1TAB62 PO; -FURO20 PO; -GUAI600 PO; +LAC-12LO3 TOPICAL; -LACT12%T TOPICAL; -MAGN1SOL2 PO; -METO25 PO; +METO25TA3 PO; +MILKSUS PO; -MILKSUS5 PO; +MIRA33504 PO; +MULTTAB62 PO; -NOVOLOGP2 SQ; +NOVOLOGSS SQ; +OXYC1CAP PO; -OXYC5 PO; +PLAV75TA29 PO; +PRED5PAK2 PO; -PROT40TA PO; +PROTPAK PO; -SENN187 PO; +SENN8.6C PO; +SILV1CRE20 TOPICAL; -SILV1CRE59 TOP; +SITA50 PO; +SODIENE9 PR; -TAB-TAB PO; +VITA500T PO
[2016-07-17 18:45] LABS: MEAN CORPUSCULAR HGB CONC 29.3 % (32.0-36.0)
[2016-07-17] MEDS ORDERED: SODIUM CHLORIDE 0.9% FLUSH 5 ML FLUSH IVF PRN (18:45)
[2016-07-17] MEDS ORDERED: methylPREDNISolone SOD SUCC 125 MG/2 ML VIAL IVP ONE (18:45)
--- NOTE | 2016-07-17 19:08 | PD ---
HPI Chief Complaint: Respiratory Distress Time Seen by Provider: 18:42 Travel History International Travel<30 days: No Contact w/Intl Traveler<30days: No Traveled to known affect area: No History of Present Illness HPI This is a 65-year-old female who has a history of pneumonia, COPD and hypercarbic respiratory failure in the past 2 presents to the emergency department reporting that she is fatigued and weak. She doesn't provide much history and is quite somnolent. She was intubated in June for hypercarbic respiratory failure. PFSH Past Medical History Arthritis: Yes (RA) Asthma: No Autoimmune Disease: No Blood Disorders: No Anxiety: Yes Depression: Yes Heart Rhythm Problems: No Cancer: No Cardiac Catheterization: Yes (JUNE 2009) Cardiovascular Problems: Yes High Cholesterol: Yes Chemotherapy: No Chest Pain: Yes Congestive Heart Failure: Yes COPD: No Cerebrovascular Accident: No Coronary Artery Disease: Yes Diabetes: Yes Patient Takes Glucophage: No Diminished Hearing: No Diverticulitis: Yes Endocrine: Yes Gastrointestinal Disorders: Yes GERD: Yes Glaucoma: Yes Genitourinary: No Headaches: No Hepatitis: No Hiatal Hernia: No Heparin Induced Thrombocytopen: No Hypertension: Yes Immune Disorder: Yes Implanted Vascular Access Dvce: No Kidney Stones: No Medical other: Yes (ARTHRITIS) Musculoskeletal: Yes Neurologic: No Psychiatric: Yes Reproductive: No Respiratory: Yes Migraines: No Myocardial Infarction: Yes Pneumonia: Yes Radiation Therapy: No Renal Failure: No Seizures: No Sickle Cell Disease: No Sleep Apnea: Yes Thyroid Disease: No Ulcer: No ?: Not Menopausal: Yes Tubal Ligation: Yes Past Surgical History Abdominal Surgery: Yes AICD: No Appendectomy: No Arteriovenous Shunt: No Cardiac Surgery: Yes (STENTS RIGHT ILIAC ARTERY) Section: Yes Cholecystectomy: No Coronary Artery Bypass Graft: No Ear Surgery: No Endocrine Surgery: No Eye Surgery: Yes (CATARACTS) Genitourinary Surgery: No Gynecologic Surgery: Yes (PARTIAL HYSTERECTOMY, CSECTION) Hysterectomy: Yes (PARTIAL) Joint Replacement: No Neurologic Surgery: No Oral Surgery: No Pacemaker: No Thoracic Surgery: No Other Surgery: Yes (CYST REMOVED RT BREAST) Family History Family Myocardial Infarction: No Social History Alcohol Use: No Tobacco Use: No Substance Use: No Allergies-Medications (Allergen,Severity, Reaction): Coded Allergies: *MDRO Multi-Drug Resistant Organism (Unverified Adverse Reaction, Unknown , MRSA, 06/04/16) MRSA PCR positive - 06/28/2015 & 06/03/16 Reported Meds & Prescriptions Reported Meds & Active Scripts Active Prednisone (48) 5 mg tab Dose Pack (Prednisone) 5 Mg Dspk 5 Mg PO DIRECTED Oxycodone (Oxycodone HCl) 5 Mg Cap 5 Mg PO Q4H PRN Levemir Inj (Insulin Detemir) 1,000 unit/ 10 ML Vial 15 Units SQ HS 30 Days Do not mix with any other Insulin. Reported Xanax (Alprazolam) 0.5 Mg Tab 0.5 Mg PO BID PRN Ferrous Sulfate 325 Mg Tab 325 Mg PO DAILY Novolog Inj (Insulin Aspart) 100 Unit/Ml Inj 2-12 Units SQ ACHS Sliding Scale: if 0-150=0 units, 151-200=2 units, 201-250=4 units, 251-300=8 units, 351-400=10 units, >400=12 units & call Vitamin C (Ascorbic Acid) 500 Mg Tab 500 Mg PO BID Lac-Hydrin (Lactic Acid (Ammonium Lactate)) 12% Lotn 1 Applic TOPICAL DAILY Apply to both lower extremities every evening shift Albuterol Neb (Albuterol Sulfate) 2.5 Mg/3 Ml Neb 2.5 Mg NEB Q2HR PRN Multi-Vitamin/Minerals (Multiple Vitamins W/ Minerals) 1 Tab Tab 1 Tab PO DAILY Tylenol Extra Strength (Acetaminophen) 500 Mg Tab 1,000 Mg PO TID PRN Miralax Powder (Polyethylene Glycol 3350 Powder) 17 Gm Powd 17 Gm PO DAILY Mix and dissolve one measuring capful (17 grams) in water,juice,soda, coffee or tea Dulcolax Supp (Bisacodyl) 10 Mg Supp 10 Mg [place] DIRECTED PRN Give if no results 1 day after Milk of Mag Citroma Liq (Magnesium Citrate) 300 Ml Liq 300 Ml PO DIRECTED PRN Give if no results 1 day after fleet enema Milk of Magnesia Liq (Magnesium Hydroxide) 400 Mg/5 Ml Susp 30 Ml PO DIRECTED PRN Enema Hmxrl-Xs-Bnw (Sodium Phosphates) 1 Valentina Valentina 1 Applic [place] DIRECTED PRN Give if no results 1 day after Dulcolax Supp Aspirin Adult Low Strength (Aspirin) 81 Mg Tabdr 81 Mg PO DAILY Atorvastatin (Atorvastatin Calcium) 40 Mg Tab 40 Mg PO HS Sertraline (Sertraline HCl) 50 Mg Tab 50 Mg PO DAILY Folate (Folic Acid) 1 Mg Tab 1 Mg PO DAILY Metoprolol Tartrate 25 Mg Tab 25 Mg PO BID Protonix Liq (Pantoprazole Sodium) 40 Mg Pkt 40 Mg PO DAILY Lasix (Furosemide) 20 Mg Tab 20 Mg PO BID Plavix (Clopidogrel Bisulfate) 75 Mg Tab 75 Mg PO DAILY Senna (Sennosides) 8.6 Mg Cap 17.2 Mg PO BID Losartan (Losartan Potassium) 50 Mg Tab 50 Mg PO BID Januvia (Sitagliptin Phosphate) 50 Mg Tab 50 Mg PO DAILY Silvadene Topical (Silver Sulfadiazine) 1 % Cream 1 Applic TOPICAL DAILY Apply to rt lower leg after nss wash then cover w/dsd every evening shift Review of Systems ROS Limitations: Altered Mental Status Physical Exam Narrative GENERAL: Morbidly obese, somnolent but awakens and says her name and answer some questions SKIN: Warm and dry. HEAD: Atraumatic. Normocephalic. EYES: Pupils equal and round. No injection or drainage. ENT: Moist mucous membranes NECK: Trachea midline. CARDIOVASCULAR: Regular rate and rhythm. No murmur appreciated. RESPIRATORY: Breath sounds equal bilaterally, exam is limited by habitus GASTROINTESTINAL: Abdomen soft, non-tender, nondistended. 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 Follows commands. Data Data Last Documented VS Vital Signs Date Time Temp Pulse Resp B/P Pulse Ox O2 Delivery O2 Flow Rate FiO2 07/17/16 18:50 100 BiPAP 50 07/17/16 18:50 92 16 07/17/16 18:50 171/73 07/17/16 18:50 98.2 Orders Complete Blood Count With Diff (07/17/16 18:43) Comprehensive Metabolic Panel (07/17/16 18:43) B-Type Natriuretic Peptide (07/17/16 18:43) D-Dimer (07/17/16 18:43) Act Partial Throm Time (Ptt) (07/17/16 18:43) Prothrombin Time / Inr (Pt) (07/17/16 18:43) Troponin I (07/17/16 18:43) Arterial Blood Gas (Abg) (07/17/16 18:43) Iv Access Insert/Monitor (07/17/16 18:43) Electrocardiogram (07/17/16 18:43) Ecg Monitoring (07/17/16 18:43) Oximetry (07/17/16 18:43) Oxygen Administration (07/17/16 18:43) Chest, Single Ap (07/17/16 18:43) Sodium Chloride 0.9% Flush (Ns Flush) (07/17/16 18:45) Methylprednisolone So Succ Inj (Solumedr (07/17/16 18:45) Albuterol-Ipratropium Neb (Duoneb Neb) (07/17/16 18:45) Resp Bipap / Cpap Non Invas Vt (07/17/16 18:43) MDM Medical Decision Making Medical Screen Exam Complete: Yes Emergency Medical Condition: Yes Interpretation(s) Afebrile, no tachycardia, hypertensive Differential Diagnosis COPD exacerbation, hypercarbic respiratory failure, pneumonia, pulmonary embolism Narrative Course This is a 65-year-old female who has a history of morbid obesity and COPD who presents to the emergency department with increasing somnolence. She recently was intubated for hypercarbic respiratory failure. She appears hypercarbic on exam, somnolent and intermittently obstructing. She was hypoxic on arrival. She is placed on BiPAP and her oxygen saturation improved to 95-99%. I think the patient warrants a trial of BiPAP, bronchodilators and steroids. If she doesn't improve she may require intubation. Labs and chest x-ray were ordered. Dr. Victoria will take over care of the patient. Critical Care Narrative Aggregate critical care time was 35 minutes. Time to perform other separately billable procedures was not included in the critical care time. My time did not include minutes spent treating any other patients simultaneously or on activities that did not directly contribute to the patient's treatment. The services I provided to this patient were to treat and/or prevent clinically significant deterioration that could result in: Disability, I provided critical care services requiring my management, as noted below: Chart data review, documentation time, medication orders and management, vital sign assessments/reviewing monitor data, ordering and reviewing lab tests, ordering and interpreting/reviewing x-rays and diagnostic studies, care of the patient and discussion of the patient with the admitting physicians. Kathya Oneill MD Jul 17, 2016 19:08
[2016-07-17 19:26] LABS: BLOOD GAS BASE EXCESS 11.7 mmol/L (-2-2); BLOOD GAS CARBOXYHEMOGLOBIN 2.4 % (0-4); BLOOD GAS HCO3 38 mmol/L (22-26); BLOOD GAS O2 HGB SATURATION 94 % (90-100); BLOOD GAS OXYGEN CONTENT 16.2 Vol % (12.0-20.0); BLOOD GAS PCO2 81 mmHg (38-42); BLOOD GAS PO2 125 mmHG (61-120); BLOOD GAS TOTAL HGB 12.1 G/DL (12.0-16.0); TEMP CORR TO 98.6
[2016-07-17 19:27] LABS: CRITICAL VALUE YES; OXYGEN DEVICE BiPAP; VENT SETTINGS IPAP 15/EPAP5
[2016-07-17 19:28] LABS: DRAW SITE RT RADIAL; FIO2 40 %; NUMBER OF ARTERIAL PUNCTURES 1; STAT YES; ULNAR PULSE PRESENT
[2016-07-17] MEDS: RESP: ALBUTEROL 2.5 MG/IPRATROPIUM 0.5 MG NEB (SCH) INH (19:39)
[2016-07-17] MEDS ORDERED: LEVEMIR SQ (19:48)
--- NOTE | 2016-07-17 20:06 | RADRPT ---
EXAM DATE/TIME: 07/17/2016 19:37 [facility] COMPARISON: CT THORAX W/O CONTRAST, June 03, 2016, 18:53. CHEST SINGLE AP, June, 3:43. INDICATIONS : Difficulty breathing. MEDICAL HISTORY : Congestive heart failure. SURGICAL HISTORY : None. ENCOUNTER: Initial ACUITY: 1 day PAIN SCORE: Non-responsive. LOCATION: Bilateral chest FINDINGS: The heart size is enlarged. The lungs demonstrate diffuse increased interstitial naomy ngs. There is some further increased density in the left hilar region. This was present previously. A significant effusion is not seen. There is some linear suspected atelectasis at the left midlung. CONCLUSION: 1. Cardiomegaly with diffuse mild prominence of the interstitium likely representing pulmonary edema and CHF. 2. Persistent enlargement of the left hilum. Chito Church MD on July 17, 2016 at 19:49 Board Certified Radiologist. This report was verified electronically.
[2016-07-17 20:07] LABS: AUTOMATED NEUTROPHIL # 7.5 TH/MM3 (1.8-7.7); BASOPHIL # 0.1 TH/MM3 (0-0.2); BASOPHIL % 0.8 % (0.0-2.0); EOSINOPHIL % 0.1 % (0.0-4.0); LYMPH % 20.3 % (9.0-44.0); LYMPHOCYTE # 2.3 TH/MM3 (1.0-4.8); MEAN CELL VOLUME 78.9 FL (80.0-100.0); MEAN CORPUSCULAR HEMOGLOBIN 23.1 PG (27.0-34.0); MONO % 11.6 % (0.0-8.0); NEUT % 67.2 % (16.0-70.0); PLATELET COUNT 319 TH/MM3 (150-450); RED BLOOD COUNT 4.95 MIL/MM3 (4.00-5.30); RED CELL DISTRIBUTION WIDTH 16.2 % (11.6-17.2); WHITE BLOOD COUNT 11.2 TH/MM3 (4.0-11.0)
[2016-07-17 20:17] LABS: APTT (PATIENT) 25.2 SEC (24.3-30.1); HEMO FLAGS AUTO DIFF; PROTHROMBIN TIME - PATIENT 10.5 SEC (9.8-11.6)
[2016-07-17 20:19] LABS: ANION GAP 7 MEQ/L (5-15); AST (GOT) 10 U/L (15-37); BICARBONATE 34.5 MEQ/L (21.0-32.0); BLOOD UREA NITROGEN 16 MG/DL (7-18); CHLORIDE 94 MEQ/L (98-107); GLOMERULAR FILTRATION RATE 85 ML/MIN (>89); POTASSIUM 4.8 MEQ/L (3.5-5.1); SODIUM (NA) 135 MEQ/L (136-145)
[2016-07-17 20:24] LABS: ALKALINE PHOSPHATASE 92 U/L (45-117); ALT (GPT) 14 U/L (10-53); TOTAL BILIRUBIN ADULT 0.6 MG/DL (0.2-1.0)
[2016-07-17 21:22] LABS: DRAW SITE RT RADIAL; FIO2 60 %; NUMBER OF ARTERIAL PUNCTURES 1; OXYGEN DEVICE BiPAP; TEMP CORR TO 98.6; ULNAR PULSE PRESENT; VENT SETTINGS IPAP 15/EPAP5
[2016-07-17 21:44] LABS: SCAN/DIFF AUTO DIFF CONFIRMED
[2016-07-17] MEDS ORDERED: DEXTROSE 50% IN WATER 50 ML VIAL(D50) IV PUSH PRN (21:45)
[2016-07-17] MEDS ORDERED: POTASSIUM CHLOR 40 MEQ PREMIX 100 ML IV PRN ×2 (21:45)
[2016-07-17] MEDS ORDERED: POTASSIUM PHOSPHATE INJ 30 MMOL in SODIUM CHLOR 0.9% 250 ML INJ 250 ML IV PRN (21:45)
[2016-07-17] MEDS ORDERED: SODIUM CHLORIDE 0.9% FLUSH 5 ML FLUSH IV FLUSH PRN (21:45)
[2016-07-17] MEDS ORDERED: MISCELLANEOUS NURSING INFORMATION XX SCH (21:45)
[2016-07-17] MEDS ORDERED: MAGNESIUM OXIDE 400 MG TAB PO PRN (21:45)
[2016-07-17] MEDS ORDERED: CHLORHEXIDINE GLUCONATE 2 % 1 PACK (2 CLOTHS) TOP PRN (21:45)
[2016-07-17] MEDS ORDERED: RESP: ALBUTEROL 2.5 MG/IPRATROPIUM 0.5 MG NEB (PRN) INH (21:45)
[2016-07-17] MEDS ORDERED: SODIUM PHOSPHATE INJ 30 MMOL in SODIUM CHLOR 0.9% 250 ML INJ 240 ML IV PRN (21:45)
[2016-07-17] MEDS ORDERED: POTASSIUM PHOSPHATE MONOBASIC 500 MG TAB PO PRN (21:45)
[2016-07-17] MEDS ORDERED: POTASSIUM CL 40 MEQ/30 ML LIQ UDC PO/TUBE PRN ×2 (21:45)
[2016-07-17] MEDS ORDERED: MAGNESIUM SULFATE INJ 4 GM in SODIUM CHLORIDE 0.9% INJ 92 ML IV PRN (21:45)
[2016-07-17] MEDS ORDERED: ONDANSETRON HCL 4 MG/2 ML VIAL IV PRN (21:45)
[2016-07-17] MEDS ORDERED: POTASSIUM PHOSPHATE MONOBASIC 500 MG TAB PO/TUBE PRN (21:45)
[2016-07-17] MEDS ORDERED: MAGNESIUM SULFATE INJ 2 GM in SODIUM CHLORIDE 0.9% INJ 96 ML IV PRN (21:45)
[2016-07-17] MEDS ORDERED: POTASSIUM CHLOR 20 MEQ PREMIX 100 ML IV PRN ×2 (21:45)
--- NOTE | 2016-07-17 22:05 | PD ---
Physical Exam Date Seen by Provider: Jul 17, 2016 Time Seen by Provider: 19:30 Narrative Patient signed out to me by Dr. Kathya Reed at 7 PM. I was replacing her. Patient has had previous admissions for hypercarbia and respiratory distress. She was immediately placed on BiPAP by Dr. Saldaña. At that time her PCO2 was 81. Patient is somnolent and difficult to arouse. Second blood gas obtained at 914 showed PCO2 of 79. At that time, decision was made to admit the patient to the ICU. Case discussed with Dr. Handy Frank, ornamenter hand on-call, who is gracious enough to admit the ICU. Data Data Last Documented VS Vital Signs Date Time Temp Pulse Resp B/P Pulse Ox O2 Delivery O2 Flow Rate FiO2 07/17/16 21:12 89 20 174/107 97 BiPAP 60 07/17/16 18:50 98.2 Orders Complete Blood Count With Diff (07/17/16 18:43) Comprehensive Metabolic Panel (07/17/16 18:43) B-Type Natriuretic Peptide (07/17/16 18:43) D-Dimer (07/17/16 18:43) Act Partial Throm Time (Ptt) (07/17/16 18:43) Prothrombin Time / Inr (Pt) (07/17/16 18:43) Troponin I (07/17/16 18:43) Arterial Blood Gas (Abg) (07/17/16 18:43) Iv Access Insert/Monitor (07/17/16 18:43) Electrocardiogram (07/17/16 18:43) Ecg Monitoring (07/17/16 18:43) Oximetry (07/17/16 18:43) Oxygen Administration (07/17/16 18:43) Chest, Single Ap (07/17/16 18:43) Sodium Chloride 0.9% Flush (Ns Flush) (07/17/16 18:45) Methylprednisolone So Succ Inj (Solumedr (07/17/16 18:45) Albuterol-Ipratropium Neb (Duoneb Neb) (07/17/16 18:45) Resp Bipap / Cpap Non Invas Vt (07/17/16 18:43) Arterial Blood Gas (Abg) (07/17/16 20:39) Blood Culture (07/17/16 21:45) Sputum Culture And Gram Stain (07/17/16 21:45) Urinalysis - C+S If Indicated (07/17/16 21:45) Specimen To Be Collected PRN (07/17/16 21:45) Arterial Blood Gas (Abg) (07/18/16 06:00) Diet Npo (07/18/16 Breakfast) ^ Elevate Head Of Bed (07/17/16 21:45) Activity Bed Rest (07/17/16 21:45) Methylprednisolone So Succ Inj (Solumedr (07/18/16 09:00) Resp Bipap / Cpap Non Invas Vt (07/17/16 ) Albuterol-Ipratropium Neb (Duoneb Neb) (07/17/16 21:45) Albuterol-Ipratropium Neb (Duoneb Neb) (07/18/16 00:00) Chest, Single Ap (07/18/16 06:00) Resp Incentive Spirometry (07/17/16 21:45) Resp Acapella/Pep/Chest Vibra (07/17/16 21:45) Resp Ezpap/Pep Therapy (07/17/16 21:45) Cbc No Diff, Includes Plts (07/18/16 05:00) Cbc No Diff, Includes Plts (07/19/16 05:00) Cbc No Diff, Includes Plts (07/20/16 05:00) Cbc No Diff, Includes Plts (07/21/16 05:00) Cbc No Diff, Includes Plts (07/22/16 05:00) Cbc No Diff, Includes Plts (07/23/16 05:00) Cbc No Diff, Includes Plts (07/24/16 05:00) Basic Metabolic Panel (Bmp) (07/18/16 05:00) Basic Metabolic Panel (Bmp) (07/19/16 05:00) Basic Metabolic Panel (Bmp) (07/20/16 05:00) Basic Metabolic Panel (Bmp) (07/21/16 05:00) Basic Metabolic Panel (Bmp) (07/22/16 05:00) Basic Metabolic Panel (Bmp) (07/23/16 05:00) Basic Metabolic Panel (Bmp) (07/24/16 05:00) Inpatient Certification (07/17/16 21:45) Magnesium Oxide (Mag-Ox) (07/17/16 21:45) Magnesium Sulfate Inj (Magnesium Sulfate (07/17/16 21:45) Magnesium Sulfate Inj (Magnesium Sulfate (07/17/16 21:45) Potassium Chlor 20 Meq Premix (Kcl 20 Me (07/17/16 21:45) Potassium Chlor 20 Meq Premix (Kcl 20 Me (07/17/16 21:45) Potassium Chlor 40 Meq Premix (Kcl 40 Me (07/17/16 21:45) Potassium Chlor 40 Meq Premix (Kcl 40 Me (07/17/16 21:45) Potassium Cl 40 Meq/30 Ml Liq (Kcl 40 Me (07/17/16 21:45) Potassium Cl 40 Meq/30 Ml Liq (Kcl 40 Me (07/17/16 21:45) Potassium Phosphate (K-Phos) (07/17/16 21:45) Potassium Phosphate (K-Phos) (07/17/16 21:45) Potassium Phosphate Inj (Potassium Phosp (07/17/16 21:45) Sodium Phosphate Inj (Sodium Phosphate I (07/17/16 21:45) ^ Medication Admin Instruction (07/17/16 21:45) ^ Notify Dr: Other (07/17/16 21:45) Bedside Glucose ELIZ.Q6H (07/17/16 21:45) ^ Blood Glucose Goal (Criteria (07/17/16 21:45) ^ Hypoglycemia 51 - 69 Mg/Dl (07/17/16 21:45) ^ Hypoglycemia 50 Mg/Dl Or < (07/17/16 21:45) ^ Notify Dr: Other (07/17/16 21:45) Dextrose 50% In Nuria (Vial) Inj (D50w (Vi (07/17/16 21:45) Insulin Human Reg Supp Scale (Novolin R (07/18/16 00:00) Code Status (07/17/16 21:45) Vital Signs (Adult) ELIZ.Q1H (07/17/16 21:45) Activity Bed Rest (07/17/16 21:45) ^ Elevate Head Of Bed (07/17/16 21:45) Neuro Checks . ORDERED (07/17/16 21:45) Sodium Chloride 0.9% Flush (Ns Flush) (07/17/16 21:45) Sodium Chloride 0.9% Flush (Ns Flush) (07/18/16 09:00) Acetaminophen (Tylenol) (07/17/16 21:45) Hydromorphone Pf Inj (Dilaudid Pf Inj) (07/17/16 21:45) Pantoprazole Inj (Protonix Inj) (07/18/16 09:00) Ondansetron Inj (Zofran Inj) (07/17/16 21:45) Docusate Sodium-Senna (Madeline-Colace) (07/18/16 09:00) Bridge Crew Member / Telemetry (07/17/16 21:45) Enoxaparin Inj (Lovenox Inj) (07/17/16 21:45) Scd Bilateral/Knee High ELIZ.BID (07/17/16 21:45) ^ Initiate Protocol (07/17/16 21:45) ^ Instruction (07/17/16 21:45) Misc Nursing Information (07/17/16 21:45) Chlorhexidine 2% Cloth (Chlorhexidine 2% (07/18/16 04:00) Chlorhexidine 2% Cloth (Chlorhexidine 2% (07/17/16 21:45) Mrsa Pcr Surveillance (07/17/16 21:45) Atorvastatin (Lipitor) (07/18/16 21:00) Clopidogrel (Plavix) (07/18/16 09:00) Furosemide (Lasix) (07/18/16 09:00) Polyethylene Glycol (Miralax) (07/18/16 09:00) Sertraline (Zoloft) (07/18/16 09:00) Labs Laboratory Tests Test 07/17/16 07/17/16 07/17/16 07/17/16 19:05 19:22 19:50 21:14 Sodium Level 135 MEQ/L Potassium Level 4.8 MEQ/L Chloride Level 94 MEQ/L Carbon Dioxide Level 34.5 MEQ/L Anion Gap 7 MEQ/L Blood Urea Nitrogen 16 MG/DL Creatinine 0.82 MG/DL Estimat Glomerular Filtration 85 ML/MIN Rate Random Glucose 161 MG/DL Calcium Level 8.4 MG/DL Total Bilirubin 0.6 MG/DL Aspartate Amino Transf 10 U/L (AST/SGOT) Alanine Aminotransferase 14 U/L (ALT/SGPT) Alkaline Phosphatase 92 U/L Troponin I LESS THAN 0.02 NG/ML Total Protein 7.0 GM/DL Albumin 2.8 GM/DL Blood Gas Puncture Site RT RADIAL RT RADIAL Blood Gas Patient Temperature 98.6 98.6 Blood Gas HCO3 38 mmol/L 22 mmol/L Blood Gas Base Excess 11.7 mmol/L -2.9 mmol/L Blood Gas Oxygen Saturation 94 % 96 % Arterial Blood pH 7.30 7.31 Arterial Blood Partial 81 mmHg 46 mmHg Pressure CO2 Arterial Blood Partial 125 mmHG 152 mmHg Pressure O2 Arterial Blood Oxygen Content 16.2 Vol % 14.2 Vol % Arterial Blood 2.4 % 1.8 % Carboxyhemoglobin Arterial Blood Methemoglobin 2.0 % 0.9 % Blood Gas Hemoglobin 12.1 G/DL 10.3 G/DL Oxygen Delivery Device BiPAP BiPAP Blood Gas Ventilator Setting IPAP 15/EPAP5 IPAP 15/EPAP5 Blood Gas Inspired Oxygen 40 % 60 % White Blood Count 11.2 TH/MM3 Red Blood Count 4.95 MIL/MM3 Hemoglobin 11.4 GM/DL Hematocrit 39.0 % Mean Corpuscular Volume 78.9 FL Mean Corpuscular Hemoglobin 23.1 PG Mean Corpuscular Hemoglobin 29.3 % Concent Red Cell Distribution Width 16.2 % Platelet Count 319 TH/MM3 Mean Platelet Volume 8.6 FL Neutrophils (%) (Auto) 67.2 % Lymphocytes (%) (Auto) 20.3 % Monocytes (%) (Auto) 11.6 % Eosinophils (%) (Auto) 0.1 % Basophils (%) (Auto) 0.8 % Neutrophils # (Auto) 7.5 TH/MM3 Lymphocytes # (Auto) 2.3 TH/MM3 Monocytes # (Auto) 1.3 TH/MM3 Eosinophils # (Auto) 0.0 TH/MM3 Basophils # (Auto) 0.1 TH/MM3 CBC Comment AUTO DIFF Differential Comment AUTO DIFF CONFIRMED Prothrombin Time 10.5 SEC Prothromb Time International 1.0 RATIO Ratio Activated Partial 25.2 SEC Thromboplast Time D-Dimer Quantitative (PE/DVT) 0.49 MG/L FEU B-Type Natriuretic Peptide 101 PG/ML [facility] Medical Record Reviewed: Yes Supervised Visit with MARLYN: No Differential Diagnosis Hypercapnia with respiratory failure versus pneumonia versus bony embolus Narrative Course 55-year-old female with history of respiratory distress, presented today with severe respiratory discomfort. The patient was somnolent with a PCO2 of 81. The patient was placed on BiPAP initially at 40% O2. This was increased to 60% with repeat PCO2 of 79. Case was discussed with Dr. Handy Frank, ornamenter hand on-call, who will admit the patient his service. The patient's d- dimer was within normal limits therefore appears to be purely pulmonary without embolus. Diagnosis Primary Impression: AQcute hypercapnic and hypoxic respiratory failure on BiPAP Additional Impressions: Morbid obesity Qualified Code: E66.01 - Morbid obesity, unspecified obesity type History of coronary artery disease Diabetes Aquiles Victoria MD Jul 17, 2016 22:05
--- NOTE | 2016-07-17 22:27 | HHI.HP ---
HPI Service Critical Care Medicine Primary Care Physician Luis Parry MD Admission Diagnosis respiratory failure, hypercabia,morbid obesity Diagnosis: Chief Complaint: shortness of breath Travel History International Travel<30 Days: No Contact w/Intl Traveler <30 Da: No Traveled to Known Affected Are: No History of Present Illness 65yF with h/o o2 dependent COPD, morbid obesity, ARSEN and recent admission in june for hypercarbic respiratory failure who presents to the emergency department with complaints of weakness and fatigue. for the ER, she was quite somnolent and unable to provide much history. For me, she is nearly unarousable and can provide no history at all. She is on BiPAP on my interview. She is quite hypercarbic with pco2 79, pH 7.2. Review of Systems ROS Limitations: Clinical Condition, Altered Mental Status Past Family Social History Allergies: Coded Allergies: *MDRO Multi-Drug Resistant Organism (Unverified Adverse Reaction, Unknown , MRSA, 06/04/16) MRSA PCR positive - 06/28/2015 & 06/03/16 Past Medical History unobtainable secondary to the patient's clinical condition. Per chart review: Diabetes mellitus Chronic venous stasis Morbid obesity Coronary artery disease, history of AR - cardiac cath Jun 2009 Rheumatoid arthritis Anxiety / depression Hyperlipidemia Congestive heart failure GERD Hypertension Sleep apnea Glaucoma Past Surgical History unobtainable secondary to the patient's clinical condition. Per chart review: Tubal ligation Right iliac artery stent section Cataract surgery Partial hysterectomy Right breast cyst removal Reported Medications Unobtainable secondary to the patient's clinical condition. Per chart review: Prednisone (48) 5 mg tab Dose Pack (Prednisone) 5 Mg Dspk 5 Mg PO DIRECTED Oxycodone (Oxycodone HCl) 5 Mg Cap 5 Mg PO Q4H PRN Levemir Inj (Insulin Detemir) 1,000 unit/ 10 ML Vial 15 Units SQ HS 30 Days Do not mix with any other Insulin. Xanax (Alprazolam) 0.5 Mg Tab 0.5 Mg PO BID PRN Ferrous Sulfate 325 Mg Tab 325 Mg PO DAILY Novolog Inj (Insulin Aspart) 100 Unit/Ml Inj 2-12 Units SQ ACHS Sliding Scale: if 0-150=0 units, 151-200=2 units, 201-250=4 units, 251-300=8 units, 351-400=10 units, >400=12 units & call Vitamin C (Ascorbic Acid) 500 Mg Tab 500 Mg PO BID Lac-Hydrin (Lactic Acid (Ammonium Lactate)) 12% Lotn 1 Applic TOPICAL DAILY Apply to both lower extremities every evening shift Albuterol Neb (Albuterol Sulfate) 2.5 Mg/3 Ml Neb 2.5 Mg NEB Q2HR PRN Multi-Vitamin/Minerals (Multiple Vitamins W/ Minerals) 1 Tab Tab 1 Tab PO DAILY Tylenol Extra Strength (Acetaminophen) 500 Mg Tab 1,000 Mg PO TID PRN Miralax Powder (Polyethylene Glycol 3350 Powder) 17 Gm Powd 17 Gm PO DAILY Mix and dissolve one measuring capful (17 grams) in water,juice,soda, coffee or tea Dulcolax Supp (Bisacodyl) 10 Mg Supp 10 Mg CA DIRECTED PRN Give if no results 1 day after Milk of Mag Citroma Liq (Magnesium Citrate) 300 Ml Liq 300 Ml PO DIRECTED PRN Give if no results 1 day after fleet enema Milk of Magnesia Liq (Magnesium Hydroxide) 400 Mg/5 Ml Susp 30 Ml PO DIRECTED PRN Enema Jobis-Lk-Mcn (Sodium Phosphates) 1 Valentina Valentina 1 Applic CA DIRECTED PRN Give if no results 1 day after Dulcolax Supp Aspirin Adult Low Strength (Aspirin) 81 Mg Tabdr 81 Mg PO DAILY Atorvastatin (Atorvastatin Calcium) 40 Mg Tab 40 Mg PO HS Sertraline (Sertraline HCl) 50 Mg Tab 50 Mg PO DAILY Folate (Folic Acid) 1 Mg Tab 1 Mg PO DAILY Metoprolol Tartrate 25 Mg Tab 25 Mg PO BID Protonix Liq (Pantoprazole Sodium) 40 Mg Pkt 40 Mg PO DAILY Lasix (Furosemide) 20 Mg Tab 20 Mg PO BID Plavix (Clopidogrel Bisulfate) 75 Mg Tab 75 Mg PO DAILY Senna (Sennosides) 8.6 Mg Cap 17.2 Mg PO BID Losartan (Losartan Potassium) 50 Mg Tab 50 Mg PO BID Januvia (Sitagliptin Phosphate) 50 Mg Tab 50 Mg PO DAILY Silvadene Topical (Silver Sulfadiazine) 1 % Cream 1 Applic TOPICAL DAILY Apply to rt lower leg after nss wash then cover w/dsd every evening shift Active Ordered Medications See MAR Family History unobtainable secondary to the clinical condition of the patient, but likely noncontributory to her acute illness Social History unobtainable secondary to the clinical condition of the patient. per chart review: Patient states that she smokes occasionally. Denies alcohol or illicit drug use. Physical Exam Vital Signs Vital Signs Date Time Temp Pulse Resp B/P Pulse Ox O2 Delivery O2 Flow Rate FiO2 07/17/16 21:12 89 20 174/107 97 BiPAP 60 07/17/16 20:02 77 20 104/51 100 BiPAP 60 07/17/16 19:40 94 40 07/17/16 18:50 100 BiPAP 50 07/17/16 18:50 92 16 78 Room Air 07/17/16 18:50 96 18 171/73 100 BiPAP 50 07/17/16 18:50 98.2 92 18 171/73 100 BiPAP 50 07/17/16 18:44 98.2 86 16 171/73 65 Physical Exam gen: morbidly obese female, lying in bed, obtunded, BiPAP in place heent: pupils equal, round, reactive. mucous membranes moist neck: large neck circumference. unable to assess jvd. trachea midline. chest: very distant breath sounds. scant expiratory wheezes. CV: normal rate, regular rhythm. muffled heart sounds. no appreciable murmurs abd: obese, soft, nontender, nondistended. no guarding. extr: right lower extremity with evidence of significant muscle wasting and skin tear vs. ulceration over right randolph. distal pulses 2+ radial. neuro: RASS -3. purposeful. does not follow commands. obtunded. Laboratory Laboratory Tests Test 07/17/16 07/17/16 07/17/16 07/17/16 19:05 19:22 19:50 21:14 Sodium Level 135 Potassium Level 4.8 Chloride Level 94 Carbon Dioxide Level 34.5 Anion Gap 7 Blood Urea Nitrogen 16 Creatinine 0.82 Estimat Glomerular Filtration 85 Rate Random Glucose 161 Calcium Level 8.4 Total Bilirubin 0.6 Aspartate Amino Transf 10 (AST/SGOT) Alanine Aminotransferase 14 (ALT/SGPT) Alkaline Phosphatase 92 Troponin I LESS THAN 0.02 Total Protein 7.0 Albumin 2.8 Blood Gas Puncture Site RT RADIAL RT RADIAL Blood Gas Patient Temperature 98.6 98.6 Blood Gas HCO3 38 22 Blood Gas Base Excess 11.7 -2.9 Blood Gas Oxygen Saturation 94 96 Arterial Blood pH 7.30 7.31 Arterial Blood Partial 81 46 Pressure CO2 Arterial Blood Partial 125 152 Pressure O2 Arterial Blood Oxygen Content 16.2 14.2 Arterial Blood 2.4 1.8 Carboxyhemoglobin Arterial Blood Methemoglobin 2.0 0.9 Blood Gas Hemoglobin 12.1 10.3 Oxygen Delivery Device BiPAP BiPAP Blood Gas Ventilator Setting IPAP 15/EPAP5 IPAP 15/EPAP5 Blood Gas Inspired Oxygen 40 60 White Blood Count 11.2 Red Blood Count 4.95 Hemoglobin 11.4 Hematocrit 39.0 Mean Corpuscular Volume 78.9 Mean Corpuscular Hemoglobin 23.1 Mean Corpuscular Hemoglobin 29.3 Concent Red Cell Distribution Width 16.2 Platelet Count 319 Mean Platelet Volume 8.6 Neutrophils (%) (Auto) 67.2 Lymphocytes (%) (Auto) 20.3 Monocytes (%) (Auto) 11.6 Eosinophils (%) (Auto) 0.1 Basophils (%) (Auto) 0.8 Neutrophils # (Auto) 7.5 Lymphocytes # (Auto) 2.3 Monocytes # (Auto) 1.3 Eosinophils # (Auto) 0.0 Basophils # (Auto) 0.1 CBC Comment AUTO DIFF Differential Comment AUTO DIFF CONFIRMED Prothrombin Time 10.5 Prothromb Time International 1.0 Ratio Activated Partial 25.2 Thromboplast Time D-Dimer Quantitative (PE/DVT) 0.49 B-Type Natriuretic Peptide 101 Result Diagram: 07/17/16 1950 07/17/161904 Assessment and Plan Assessment and Plan Assessment: 65yF with h/o COPD o2 dependent on 4L continuously and likely ARSEN, morbid obesity, possible obesity hypoventilation syndrome who presents in acute hypoxic and hypercarbic respiratory failure. Plan by Systems: Neuro: Metabolic Encephalopathy --likely secondary to hypercarbia. --fent/prop for goal RASS -2 while intubated. Resp: Acute hypoxic and Hypercarbic respiratory failure COPD Exacerbation Possible Health Care Associated Pneumonia Obstructive Sleep Apnea Possible Obesity Hypoventilation Syndrome --failing BiPAP. will require intubation and mechanical ventilation --wean fio2 for goal spo2 > 88% --solumedrol 60mg iv q12h --nebs q4h and q2h prn --vent bundle --hob at 30 degrees --low tidal volume ventilation with increased expiratory time CV: Hypertension Congestive Heart Failure with Preserved EF --continue home plavix --hold home metoprolol, lisinopril Renal: --place Wise for accurate I/Os --strict I/Os FEN/GI: Morbid Obesity Intravascular volume overload --hold mivf for now --NPO --ICU electrolyte protocol --daily BMP --bowel regimen with senna/colace/miraLAX Heme/ID: Anemia, unknown type Possible health care associated pneumonia --u/a with urine culture --sputum culture --blood cultures --vancomycin with pharmacy dosing --empiric cefepime and azithromycin Endocrine: Diabetes Hyperglycemia of Critical Illness --hold home Januvia --hold home long acting insulin --SSI, medium scale, q6h Prophylaxis: DVT Prophylaxis: --SCDs --Lovenox 40mg SQ qday GI Prophylaxis: --Protonix 40mg iv q24h. Dispo: --admit to the ICU. she remains critically ill. Critical Care Time: 53 minutes, exclusive of procedures. Code Status Full Code Handy Frank MD Jul 17, 2016 22:27
[2016-07-17] MEDS ORDERED: ROCURONIUM INJ 100 MG/10 ML VIAL IV ONE (22:30)
[2016-07-17] MEDS ORDERED: Vancomycin Consult Pharmacy 1 EA OTHER SCH (22:30)
[2016-07-17] MEDS ORDERED: MIDAZOLAM HCL 5 MG/ML VIAL (1 ML) IV SCH (22:30)
[2016-07-17] MEDS: CEFEPIME INJ 1,000 MG in SODIUM CHLORIDE 0.9% INJ 100 ML IV SCH (22:53)
[2016-07-17 22:56] LABS: BLOOD GAS PCO2 79 mmHg (38-42); BLOOD GAS PO2 93 mmHg (61-120)
[2016-07-17 22:57] LABS: BLOOD GAS HCO3 38 mmol/L (22-26)
[2016-07-17 22:58] LABS: BLOOD GAS BASE EXCESS 11.2 mmol/L (-2-2); BLOOD GAS CARBOXYHEMOGLOBIN 2.4 % (0-4)
[2016-07-17 22:59] LABS: BLOOD GAS METHEMOGLOBIN 1.9 % (0-2); BLOOD GAS O2 HGB SATURATION 93 % (90-100); BLOOD GAS TOTAL HGB 12.2 G/DL (12.0-16.0)
[2016-07-17 23:02] LABS: STAT YES
[2016-07-17 23:08] LABS: BLOOD, URINE NEG (NEG); GLUCOSE,URINE NEG (NEG); HYALINE CAST, URINE 26 /lpf (RARE); KETONE, URINE NEG (NEG); MUCUS URINE FEW /lpf (OCC); NITRITE,URINE NEG (NEG); SQUAMOUS EPITHELIAL CELL URINE <1 /hpf (0-5); URINE COLOR YELLOW (YELLW/STRAW); WAXY CAST, URINE 1 /lpf
[2016-07-17 23:09] LABS: COMMENT (UR) CATH-CULT NOT IND; CULTURE IF INDICATED CATH CULTURE NOT IND
[2016-07-17] MEDS ORDERED: ROCURONIUM INJ 50 MG/5 ML VIAL ONE (23:40)
[2016-07-18] VITALS (20 sets, daily range): BP systolic 80–152; BP diastolic 42–70; PULSE 61–89; RESP 12–14; TEMP 97.5–98.6; O2SAT 97–100
[2016-07-18] MEDS ORDERED: VANCOMYCIN INJ 2,200 MG in SODIUM CHLORID 0.9% 500 ML INJ 500 ML IV ONE ×2
[2016-07-18 00:09] LABS: BLOOD GAS BASE EXCESS 9.7 mmol/L (-2-2); BLOOD GAS CARBOXYHEMOGLOBIN 1.6 % (0-4); BLOOD GAS HCO3 36 mmol/L (22-26); BLOOD GAS METHEMOGLOBIN 1.4 % (0-2); BLOOD GAS O2 HGB SATURATION 96 % (90-100); BLOOD GAS OXYGEN CONTENT 17.1 Vol % (12.0-20.0); BLOOD GAS PCO2 78 mmHg (38-42); BLOOD GAS PO2 171 mmHg (61-120); BLOOD GAS TOTAL HGB 12.4 G/DL (12.0-16.0); TEMP CORR TO 98.6
[2016-07-18 00:10] LABS: FIO2 100 %; LITER FLOW 15 L/M; OXYGEN DEVICE NRB
[2016-07-18 00:11] LABS: DRAW SITE RT RADIAL; NUMBER OF ARTERIAL PUNCTURES 2; STAT NO; ULNAR PULSE PRESENT
[2016-07-18] MEDS: ENOXAPARIN SODIUM 40 MG/0.4 ML SYRINGE SQ SCH ×2 (00:13→22:47)
[2016-07-18] MEDS: AZITHROMYCIN INJ 500 MG in SODIUM CHLOR 0.9% 250 ML INJ 250 ML IV SCH (00:14)
[2016-07-18 02:41] LABS: BLOOD GAS BASE EXCESS 9.6 mmol/L (-2-2); BLOOD GAS CARBOXYHEMOGLOBIN 1.4 % (0-4); BLOOD GAS HCO3 37 mmol/L (22-26); BLOOD GAS METHEMOGLOBIN 1.1 % (0-2); BLOOD GAS O2 HGB SATURATION 95 % (90-100); BLOOD GAS OXYGEN CONTENT 16.6 Vol % (12.0-20.0); BLOOD GAS PCO2 84 mmHg (38-42); BLOOD GAS PO2 117 mmHg (61-120); BLOOD GAS TOTAL HGB 12.3 G/DL (12.0-16.0); TEMP CORR TO 98.6
[2016-07-18 02:42] LABS: CRITICAL VALUE YES
[2016-07-18 02:43] LABS: DRAW SITE LT RADIAL; FIO2 60 %; NUMBER OF ARTERIAL PUNCTURES 2; STAT NO; ULNAR PULSE PRESENT
[2016-07-18] MEDS: CHLORHEXIDINE GLUCONATE 2 % 1 PACK (2 CLOTHS) TOP SCH (04:00)
[2016-07-18] MEDS: RESP: ALBUTEROL 2.5 MG/IPRATROPIUM 0.5 MG NEB (SCH) INH ×5 (04:11→19:58)
--- NOTE | 2016-07-18 04:30 | RADRPT ---
EXAM DATE/TIME: 07/18/2016 03:38 [place] COMPARISON: CHEST SINGLE AP, July 17, 2016, 19:37. INDICATIONS : Shortness of breath, ET tube placement. MEDICAL HISTORY : Congestive heart failure. SURGICAL HISTORY : None. ENCOUNTER: Initial ACUITY: 1 day PAIN SCORE: Non-responsive. LOCATION: Bilateral chest FINDINGS: The cardiac silhouette is enlarged in transverse diameter. Endotracheal tube is in good position abov e the teresita. There are findings of congestive heart failure with interstitial and alveolar opacity b ilaterally. The findings are similar to the prior exam. CONCLUSION: 1. Satisfactory position of endotracheal tube as above. Mor Russell MD on July 18, 2016 at 4:27 Board Certified Radiologist. This report was verified electronically.
[2016-07-18 05:02] LABS: HEMATOCRIT 35.4 % (35.0-46.0); MEAN CELL VOLUME 77.9 FL (80.0-100.0); MEAN CORPUSCULAR HEMOGLOBIN 23.9 PG (27.0-34.0); MEAN CORPUSCULAR HGB CONC 30.7 % (32.0-36.0); PLATELET COUNT 254 TH/MM3 (150-450); RED BLOOD COUNT 4.55 MIL/MM3 (4.00-5.30); RED CELL DISTRIBUTION WIDTH 15.8 % (11.6-17.2); WHITE BLOOD COUNT 6.2 TH/MM3 (4.0-11.0)
[2016-07-18 05:04] LABS: REVIEW FLAG FINAL
[2016-07-18 05:15] LABS: BLOOD GAS BASE EXCESS 8.5 mmol/L (-2-2); BLOOD GAS CARBOXYHEMOGLOBIN 1.5 % (0-4); BLOOD GAS HCO3 34 mmol/L (22-26); BLOOD GAS METHEMOGLOBIN 1.2 % (0-2); BLOOD GAS O2 HGB SATURATION 93 % (90-100); BLOOD GAS OXYGEN CONTENT 14.9 Vol % (12.0-20.0); BLOOD GAS PCO2 66 mmHg (38-42); BLOOD GAS PO2 85 mmHg (61-120); BLOOD GAS TOTAL HGB 11.3 G/DL (12.0-16.0); TEMP CORR TO 98.6
[2016-07-18 05:16] LABS: CRITICAL VALUE YES
[2016-07-18 05:17] LABS: DRAW SITE LT RADIAL; FIO2 50 %; NUMBER OF ARTERIAL PUNCTURES 1; OXYGEN DEVICE VENTILATOR; STAT NO; ULNAR PULSE PRESENT; VENT SETTINGS AC12/400/PEEP5
[2016-07-18 05:35] LABS: BICARBONATE 35.3 MEQ/L (21.0-32.0); POTASSIUM 5.1 MEQ/L (3.5-5.1)
[2016-07-18] MEDS: INSULIN NovoLIN REGULAR SUPPLEMENTAL SCALE SQ SCH ×4 (06:00→17:33)
--- NOTE | 2016-07-18 06:01 | PD.PROCEDR ---
Procedure Note Procedure Procedure: Arterial Line Placement Left radial arterial line Diagnosis: Acute hypercarbic respiratory failure Indications: Need for serial arterial blood gas sampling Consent: Consent is deemed emergent or medically necessary Description of the Procedure: The left wrist was prepped and draped sterilely. 1% lidocaine was used for local anesthesia. The pulse was located and a needle was advanced into the artery. A 20 gauge, 12 cm catheter was advanced into the artery using a modified Seldinger technique. The catheter was sutured to the skin and a sterile dressing was applied. The catheter was connected to a pressure transducer and an arterial waveform was noted. There were no immediate complications noted. There was minimal EBL. I personally performed the procedure. Handy Frank MD Jul 18, 2016 06:01
[2016-07-18 06:27] LABS: BLOOD GAS CARBOXYHEMOGLOBIN 1.6 % (0-4); BLOOD GAS HCO3 32 mmol/L (22-26); BLOOD GAS METHEMOGLOBIN 1.2 % (0-2); BLOOD GAS O2 HGB SATURATION 93 % (90-100); BLOOD GAS PCO2 59 mmHg (38-42); BLOOD GAS PO2 78 mmHg (61-120); BLOOD GAS TOTAL HGB 10.7 G/DL (12.0-16.0); TEMP CORR TO 98.6
[2016-07-18 06:28] LABS: CRITICAL VALUE YES; FIO2 50 %; OXYGEN DEVICE VENTILATOR; VENT SETTINGS AC/12/400/PEEP5
[2016-07-18 06:29] LABS: DRAW SITE ART LINE; STAT NO
[2016-07-18] MEDS: CEFEPIME INJ 1,000 MG in SODIUM CHLORIDE 0.9% INJ 100 ML IV SCH ×3 (06:48→22:47)
--- NOTE | 2016-07-18 08:44 | EKG ---
Date Performed: 07/17/2016 Time Performed: 18:55:04 PTAGE: 65 years EKG: Sinus rhythm POSSIBLE LEFT ATRIAL ENLARGEMENT NONSPECIFIC T-WAVE ABNORMALITY ABNORMAL ECG PREVIOUS TRACING : 06/03/2016 11.59 DOCTOR: Maverick Scott Interpretating Date/Time 07/18/2016 08:40:56
[2016-07-18] MEDS: methylPREDNISolone SOD SUCC 125 MG/2 ML VIAL IV PUSH SCH ×2 (09:01→20:51)
[2016-07-18] MEDS: POLYETHYLENE GLYCOL 17 GM PKG PO SCH (09:01)
[2016-07-18] MEDS: PANTOPRAZOLE SODIUM 40 MG VIAL IV SCH (09:01)
[2016-07-18] MEDS: DOCUSATE SODIUM 50 MG/SENNA 8.6 MG TAB PO SCH ×2 (09:02→20:51)
[2016-07-18] MEDS: FUROSEMIDE 20 MG TAB PO SCH ×2 (09:02→20:51)
[2016-07-18] MEDS: SERTRALINE HCL 50 MG TAB PO SCH (09:02)
[2016-07-18] MEDS: CLOPIDOGREL 75 MG TAB PO SCH (09:02)
[2016-07-18] MEDS: SODIUM CHLORIDE 0.9% FLUSH 5 ML FLUSH IV FLUSH SCH ×2 (09:03→20:52)
[2016-07-18] MEDS: CHLORHEXIDINE 0.12% (ORAL KIT) 15 ML CUP MT SCH ×2 (10:28→20:50)
[2016-07-18] MEDS: PROPOFOL 1000 MG/100 ML INJ 100 ML IV SCH ×3 (13:19→22:47)
[2016-07-18] MEDS: ATORVASTATIN 40 MG TAB PO SCH (20:51)
[2016-07-18] MEDS: VANCOMYCIN INJ 1,750 MG in SODIUM CHLORID 0.9% 500 ML INJ 500 ML IV SCH (20:51)
--- NOTE | 2016-07-18 20:58 | HHI.CCPN ---
Subjective Remarks/Hospital Course 65yF with h/o o2 dependent COPD, morbid obesity, ARSEN and recent admission in june for hypercarbic respiratory failure who presents to the emergency department with complaints of weakness and fatigue. for the ER, she was quite somnolent and unable to provide much history. For me, she is nearly unarousable and can provide no history at all. She is on BiPAP on my interview. She is quite hypercarbic with pco2 79, pH 7.2. Subjective 07/18:Afebrile. The patient remains intubated and sedated. Continue to wean PEEP , and beginning CPAP trials. Will begin tubefeeds today. Objective Vital Signs Date Time Temp Pulse Resp B/P Pulse Ox O2 Delivery O2 Flow Rate FiO2 07/18/16 20:00 97 40 07/18/16 18:00 68 07/18/16 16:00 14 126/52 07/18/16 16:00 98.4 07/18/16 03:30 15.00 07/18/16 01:15 Bi-Pap Intake and Output 07/17/16 07/17/16 07/18/16 08:00 16:00 00:00 Output Total 600 ml Balance -600 ml Result Diagram: 07/18/16 0430 07/18/16 0430 Other Results Microbiology Date/Time Procedure Status Source Growth 07/17/16 22:00 Legionella Antigen - Final Complete Urine Catheterized Urine PRESUMPTIVE NEGATIVE FOR LEGIONELLA P... 07/17/16 22:00 Streptococcus pneumoniae Antigen (M - Final Complete Urine Catheterized Urine PRESUMPTIVE NEGATIVE FOR STREPTOCOCCU... Laboratory Tests Test 07/17/16 07/18/16 07/18/16 07/18/16 21:14 02:28 05:03 06:14 Blood Gas Puncture Site RT RADIAL LT RADIAL LT RADIAL ART LINE Blood Gas Patient Temperature 98.6 98.6 98.6 98.6 Blood Gas HCO3 38 mmol/L 37 mmol/L 34 mmol/L 32 mmol/L (22-26) (22-26) (22-26) (22-26) Blood Gas Base Excess 11.2 mmol/L 9.6 mmol/L 8.5 mmol/L 7.0 mmol/L (-2-2) (-2-2) (-2-2) (-2-2) Blood Gas Oxygen Saturation 93 % (90-100) 95 % (90-100) 93 % (90-100) 93 % (90- 100) Arterial Blood pH 7.30 7.26 7.34 7.36 (7.380-7.420) (7.380-7.420) (7.380-7.420) (7.380-7.420) Arterial Blood Partial 79 mmHg (38-42) 84 mmHg (38-42) 66 mmHg (38-42) 59 mmHg ( 38-42) Pressure CO2 Arterial Blood Partial 93 mmHg 117 mmHg 85 mmHg 78 mmHg Pressure O2 (61-120) (61-120) (61-120) (61-120) Arterial Blood Oxygen Content 16.0 Vol % 16.6 Vol % 14.9 Vol % 14.0 Vol % (12.0-20.0) (12.0-20.0) (12.0-20.0) (12.0-20.0) Arterial Blood 2.4 % (0-4) 1.4 % (0-4) 1.5 % (0-4) 1.6 % (0-4) Carboxyhemoglobin Arterial Blood Methemoglobin 1.9 % (0-2) 1.1 % (0-2) 1.2 % (0-2) 1.2 % (0-2) Blood Gas Hemoglobin 12.2 G/DL 12.3 G/DL 11.3 G/DL 10.7 G/DL (12.0-16.0) (12.0-16.0) (12.0-16.0) (12.0-16.0) Oxygen Delivery Device BiPAP BiPAP15/5 VENTILATOR VENTILATOR Blood Gas Ventilator Setting IPAP 15/EPAP5 AC12/400/PEEP5 AC/12/400/PEEP5 Blood Gas Inspired Oxygen 60 % 60 % 50 % 50 % Blood Gas Liter Flow L/M Objective Remarks gen: morbidly obese female, lying in bed, obtunded, BiPAP in place heent: pupils equal, round, reactive. mucous membranes moist neck: large neck circumference. unable to assess jvd. trachea midline. chest: very distant breath sounds. scant expiratory wheezes. CV: normal rate, regular rhythm. muffled heart sounds. no appreciable murmurs abd: obese, soft, nontender, nondistended. no guarding. extr: right lower extremity with evidence of significant muscle wasting and skin tear vs. ulceration over right randolph. distal pulses 2+ radial. neuro: RASS -3. purposeful. does not follow commands. obtunded. Urinary Catheter: Yes Date of Insertion: Jul 17, 2016 Vascular Central Line Catheter: No A/P Assessment and Plan Assessment: 65yF with h/o COPD o2 dependent on 4L continuously and likely ARSEN, morbid obesity, possible obesity hypoventilation syndrome who presents in acute hypoxic and hypercarbic respiratory failure. Plan by Systems: Neuro: Metabolic Encephalopathy --likely secondary to hypercarbia. --fent/prop for goal RASS -2 while intubated. -- Daily sedation vacation Resp: Acute hypoxic and Hypercarbic respiratory failure COPD Exacerbation Possible Health Care Associated Pneumonia Obstructive Sleep Apnea Possible Obesity Hypoventilation Syndrome --failing BiPAP. will require intubation and mechanical ventilation --wean fio2 for goal spo2 > 88% --solumedrol 60mg IV q12h --nebs q4h and q2h prn --Ventilator Bundle --HOB at 30 degrees --low tidal volume ventilation with increased expiratory time CV: Hypertension Congestive Heart Failure with Preserved EF --continue home plavix --hold home metoprolol, lisinopril Renal: --place Wise for accurate I/Os --strict I/Os FEN/GI: Morbid Obesity Intravascular volume overload --Dietary Consult --Begin Glucerna 1.5 10cc/hr advance as tolerated to goal 40cc/hr --ICU electrolyte protocol --daily BMP --bowel regimen with senna/colace/miraLAX Heme/ID: Anemia, unknown type Possible health care associated pneumonia --u/a with urine culture --sputum culture --blood cultures --vancomycin with pharmacy dosing --empiric cefepime and azithromycin Endocrine: Diabetes Hyperglycemia of Critical Illness --hold home Januvia --hold home long acting insulin --SSI, medium scale, q6h Prophylaxis: DVT Prophylaxis: --SCDs --Lovenox 40mg SQ qday GI Prophylaxis: --Protonix 40mg iv q24h. Dispo: Discussed with [employer] PARALEGAL at bedside Critical Care Time: 33 minutes, exclusive of procedures. Physician Julienne Singh MD Jul 18, 2016 20:58
[2016-07-19] VITALS (19 sets, daily range): BP systolic 105–175; BP diastolic 47–72; PULSE 54–97; RESP 12–30; TEMP 98.1–98.6; O2SAT 93–100
[2016-07-19] MEDS: fentaNYL DRIP 250 ML IV SCH ×2 (00:06→20:38)
[2016-07-19] MEDS: INSULIN NovoLIN REGULAR SUPPLEMENTAL SCALE SQ SCH ×4 (00:07→18:12)
[2016-07-19] MEDS: AZITHROMYCIN INJ 500 MG in SODIUM CHLOR 0.9% 250 ML INJ 250 ML IV SCH (00:07)
[2016-07-19] MEDS: RESP: ALBUTEROL 2.5 MG/IPRATROPIUM 0.5 MG NEB (SCH) INH ×7 (00:15→23:25)
[2016-07-19] MEDS: CHLORHEXIDINE GLUCONATE 2 % 1 PACK (2 CLOTHS) TOP SCH (04:00)
[2016-07-19 05:02] LABS: HEMATOCRIT 34.2 % (35.0-46.0); MEAN CELL VOLUME 76.9 FL (80.0-100.0); PLATELET COUNT 274 TH/MM3 (150-450); RED BLOOD COUNT 4.45 MIL/MM3 (4.00-5.30); RED CELL DISTRIBUTION WIDTH 16.2 % (11.6-17.2); REVIEW FLAG FINAL; WHITE BLOOD COUNT 7.1 TH/MM3 (4.0-11.0)
[2016-07-19 05:10] LABS: POTASSIUM 4.5 MEQ/L (3.5-5.1)
[2016-07-19 06:11] LABS: BICARBONATE 33.4 MEQ/L (21.0-32.0); MAGNESIUM 2.3 MG/DL (1.5-2.5); POTASSIUM 4.5 MEQ/L (3.5-5.1)
[2016-07-19 06:24] LABS: BLOOD GAS BASE EXCESS 6.2 mmol/L (-2-2); BLOOD GAS CARBOXYHEMOGLOBIN 1.6 % (0-4); BLOOD GAS HCO3 31 mmol/L (22-26); BLOOD GAS METHEMOGLOBIN 1.1 % (0-2); BLOOD GAS O2 HGB SATURATION 89 % (90-100); BLOOD GAS OXYGEN CONTENT 13.7 Vol % (12.0-20.0); BLOOD GAS PCO2 51 mmHg (38-42); BLOOD GAS PO2 64 mmHg (61-120); BLOOD GAS TOTAL HGB 10.9 G/DL (12.0-16.0); TEMP CORR TO 98.6
[2016-07-19 06:25] LABS: CRITICAL VALUE YES; DRAW SITE ART LINE; FIO2 40 %; OXYGEN DEVICE VENTILATOR; STAT NO; VENT SETTINGS AC/14/400/PEEP6
[2016-07-19] MEDS: CEFEPIME INJ 1,000 MG in SODIUM CHLORIDE 0.9% INJ 100 ML IV SCH ×3 (06:31→21:44)
[2016-07-19] MEDS: PROPOFOL 1000 MG/100 ML INJ 100 ML IV SCH ×2 (07:11→21:44)
--- NOTE | 2016-07-19 07:43 | HHI.CCPN ---
Subjective Remarks/Hospital Course 65yF with h/o o2 dependent COPD, morbid obesity, ARSEN and recent admission in june for hypercarbic respiratory failure who presents to the emergency department with complaints of weakness and fatigue. for the ER, she was quite somnolent and unable to provide much history. For me, she is nearly unarousable and can provide no history at all. She is on BiPAP on my interview. She is quite hypercarbic with pco2 79, pH 7.2. Subjective 07/18:Afebrile. The patient remains intubated and sedated. Continue to wean PEEP , and beginning CPAP trials. Will begin tubefeeds today. 07/19 Patient is sedated with Diprivan and Fentanyl intubated. Afebrile. Objective Vital Signs Date Time Temp Pulse Resp B/P Pulse Ox O2 Delivery O2 Flow Rate FiO2 07/19/16 07:30 97 45 07/19/16 06:00 59 07/19/16 04:00 98.3 14 151/63 07/18/16 03:30 15.00 07/18/16 01:15 Bi-Pap Intake and Output 07/18/16 07/18/16 07/19/16 08:00 16:00 00:00 Intake Total 792 ml 347 ml 869 ml Output Total 250 ml 350 ml 300 ml Balance 542 ml -3 ml 569 ml Result Diagram: 07/19/16 0415 07/19/16 0415 Other Results Laboratory Tests Test 07/18/16 07/19/16 07/19/16 23:25 04:15 05:44 Blood Gas Puncture Site RT RADIAL ART LINE Blood Gas Patient Temperature 98.6 98.6 Blood Gas HCO3 36 mmol/L 31 mmol/L Blood Gas Base Excess 9.7 mmol/L 6.2 mmol/L Blood Gas Oxygen Saturation 96 % 89 % Arterial Blood pH 7.29 7.40 Arterial Blood Partial 78 mmHg 51 mmHg Pressure CO2 Arterial Blood Partial 171 mmHg 64 mmHg Pressure O2 Arterial Blood Oxygen Content 17.1 Vol % 13.7 Vol % Arterial Blood 1.6 % 1.6 % Carboxyhemoglobin Arterial Blood Methemoglobin 1.4 % 1.1 % Blood Gas Hemoglobin 12.4 G/DL 10.9 G/DL Oxygen Delivery Device NRB VENTILATOR Blood Gas Liter Flow 15 L/M Blood Gas Inspired Oxygen 100 % 40 % White Blood Count 7.1 TH/MM3 Red Blood Count 4.45 MIL/MM3 Hemoglobin 10.3 GM/DL Hematocrit 34.2 % Mean Corpuscular Volume 76.9 FL Mean Corpuscular Hemoglobin 23.0 PG Mean Corpuscular Hemoglobin 30.0 % Concent Red Cell Distribution Width 16.2 % Platelet Count 274 TH/MM3 Mean Platelet Volume 8.8 FL Sodium Level 139 MEQ/L Potassium Level 4.5 MEQ/L Chloride Level 100 MEQ/L Carbon Dioxide Level 33.4 MEQ/L Anion Gap 6 MEQ/L Blood Urea Nitrogen 25 MG/DL Creatinine 0.85 MG/DL Estimat Glomerular Filtration 81 ML/MIN Rate Random Glucose 276 MG/DL Calcium Level 8.1 MG/DL Phosphorus Level 2.6 MG/DL Magnesium Level 2.3 MG/DL Blood Gas Ventilator Setting AC/14/400/PEEP6 Imaging Last Impressions Chest X-Ray 07/18/16 0600 Signed Impressions: Service Date/Time: , July 18, 2016 03:38 - CONCLUSION: 1. Satisfactory position of endotracheal tube as above. Mor Russell MD Objective Remarks GENERAL: Patient is 65yo intubated and sedated SKIN: Warm and dry. HEAD: Normocephalic. EYES: No scleral icterus. No injection or drainage. NECK: Supple, trachea midline. No JVD or lymphadenopathy. CARDIOVASCULAR: Regular rate and rhythm without murmurs, gallops, or rubs. RESPIRATORY: Breath sounds equal bilaterally. No accessory muscle use. GASTROINTESTINAL: Abdomen soft, non-tender, nondistended. MUSCULOSKELETAL: No cyanosis, or edema. Neuro: Sedated and intubated Date of Insertion: Jul 17, 2016 A/P Assessment and Plan Assessment: 65yF with h/o COPD o2 dependent on 4L continuously and likely ARSEN, morbid obesity, possible obesity hypoventilation syndrome who presents in acute hypoxic and hypercarbic respiratory failure intubated and sedated. Plan by Systems: Neuro: Metabolic Encephalopathy --likely secondary to hypercarbia. --fent/prop for goal RASS -2 while intubated. -- Daily sedation vacation Resp: Acute hypoxic and Hypercarbic respiratory failure COPD Exacerbation Possible Health Care Associated Pneumonia Obstructive Sleep Apnea Possible Obesity Hypoventilation Syndrome --Continue with vent support keep sat >92% --solumedrol 60mg IV q12h, nebs q4h and q2h prn --Ventilator Bundle --HOB at 30 degrees CV: Hypertension Congestive Heart Failure with Preserved EF --Monitor HR and BP keep MAP>65mmHg. -Continue with Plavix, Lipitor Renal: --Monitor renal function, I/O's, electrolytes replacement per protocol. -On Lasix 20mg BID FEN/GI: Morbid Obesity -Continue TF-Glucerna 1.5 with goal rate 40cc/hr -On Protonix for GI prophylaxis --bowel regimen with senna/colace/miraLAX ID: Possible health care associated pneumonia --Continue with abx (Vanco, cefepime and azithromycin)monitor for signs of infections ( Fever, WBC) -Strep pneumonia and Legionella urinary Ag negative. For up on BC. Check sputum cx, Heme: Monitor CBC Endocrine: Diabetes Hyperglycemia of Critical Illness --SSI, medium scale, q6h Prophylaxis: DVT Prophylaxis: --SCDs --Lovenox 40mg SQ qday GI Prophylaxis: --Protonix 40mg iv q24h. CCT 30 mins Lluvia Gamboa MD Jul 19, 2016 07:43 Discussed with INSURANCE CLAIMS EXAMINER at bedside Critical Care Time: 33 minutes, exclusive of procedures. Lluvia Gamboa MD Jul 19, 2016 07:43
[2016-07-19] MEDS: FUROSEMIDE 20 MG TAB PO SCH ×2 (08:49→20:38)
[2016-07-19] MEDS: SERTRALINE HCL 50 MG TAB PO SCH (09:00)
[2016-07-19] MEDS: DOCUSATE SODIUM 50 MG/SENNA 8.6 MG TAB PO SCH ×2 (09:53→20:38)
[2016-07-19] MEDS: POLYETHYLENE GLYCOL 17 GM PKG PO SCH (09:53)
[2016-07-19] MEDS: methylPREDNISolone SOD SUCC 125 MG/2 ML VIAL IV PUSH SCH ×2 (09:53→20:38)
[2016-07-19] MEDS: CLOPIDOGREL 75 MG TAB PO SCH (09:53)
[2016-07-19] MEDS: PANTOPRAZOLE SODIUM 40 MG VIAL IV SCH (09:53)
[2016-07-19] MEDS: CHLORHEXIDINE 0.12% (ORAL KIT) 15 ML CUP MT SCH ×2 (09:54→20:39)
[2016-07-19] MEDS: SODIUM CHLORIDE 0.9% FLUSH 5 ML FLUSH IV FLUSH SCH ×2 (09:54→20:38)
[2016-07-19 13:26] LABS: BLOOD GAS BASE EXCESS 6.1 mmol/L (-2-2); BLOOD GAS CARBOXYHEMOGLOBIN 1.4 % (0-4); BLOOD GAS HCO3 31 mmol/L (22-26); BLOOD GAS METHEMOGLOBIN 1.3 % (0-2); BLOOD GAS O2 HGB SATURATION 95 % (90-100); BLOOD GAS OXYGEN CONTENT 15.3 Vol % (12.0-20.0); BLOOD GAS PCO2 57 mmHg (38-42); BLOOD GAS PO2 100 mmHg (61-120); BLOOD GAS TOTAL HGB 11.4 G/DL (12.0-16.0); CRITICAL VALUE YES; DRAW SITE ART LINE; OXYGEN DEVICE VENTILATOR; STAT NO; TEMP CORR TO 98.6
[2016-07-19 13:30] LABS: FIO2 45 %; VENT SETTINGS CPAP 5/PS 5/.45
[2016-07-19] MEDS: VANCOMYCIN INJ 1,750 MG in SODIUM CHLORID 0.9% 500 ML INJ 500 ML IV SCH (15:09)
[2016-07-19] MEDS: ATORVASTATIN 40 MG TAB PO SCH (20:38)
[2016-07-19] MEDS: ENOXAPARIN SODIUM 40 MG/0.4 ML SYRINGE SQ SCH (21:44)
[2016-07-19 22:55] LABS: CRITICAL VALUE YES
[2016-07-20] VITALS (17 sets, daily range): BP systolic 98–161; BP diastolic 46–73; PULSE 57–107; RESP 14–18; TEMP 97.6–98.8; O2SAT 95–100
[2016-07-20] MEDS: AZITHROMYCIN INJ 500 MG in SODIUM CHLOR 0.9% 250 ML INJ 250 ML IV SCH ×2 (00:03→22:46)
[2016-07-20] MEDS: RESP: ALBUTEROL 2.5 MG/IPRATROPIUM 0.5 MG NEB (SCH) INH ×5 (03:39→19:52)
[2016-07-20] MEDS: CHLORHEXIDINE GLUCONATE 2 % 1 PACK (2 CLOTHS) TOP SCH (04:00)
[2016-07-20] MEDS: PROPOFOL 1000 MG/100 ML INJ 100 ML IV SCH ×4 (04:16→20:21)
[2016-07-20 05:16] LABS: AUTOMATED NEUTROPHIL # 5.8 TH/MM3 (1.8-7.7); BASOPHIL % 0.4 % (0.0-2.0); HEMATOCRIT 31.8 % (35.0-46.0); LYMPH % 8.3 % (9.0-44.0); LYMPHOCYTE # 0.6 TH/MM3 (1.0-4.8); MEAN CELL VOLUME 76.2 FL (80.0-100.0); MEAN CORPUSCULAR HEMOGLOBIN 23.1 PG (27.0-34.0); MEAN CORPUSCULAR HGB CONC 30.3 % (32.0-36.0); MONO % 9.4 % (0.0-8.0); NEUT % 81.9 % (16.0-70.0); PLATELET COUNT 260 TH/MM3 (150-450); RED BLOOD COUNT 4.17 MIL/MM3 (4.00-5.30); RED CELL DISTRIBUTION WIDTH 16.3 % (11.6-17.2)
[2016-07-20 05:23] LABS: HEMO FLAGS AUTO DIFF
[2016-07-20 05:40] LABS: BICARBONATE 34.4 MEQ/L (21.0-32.0); MAGNESIUM 2.7 MG/DL (1.5-2.5); POTASSIUM 4.7 MEQ/L (3.5-5.1)
[2016-07-20] MEDS: INSULIN NovoLIN REGULAR SUPPLEMENTAL SCALE SQ SCH ×5 (06:17→23:22)
[2016-07-20] MEDS: CEFEPIME INJ 1,000 MG in SODIUM CHLORIDE 0.9% INJ 100 ML IV SCH ×3 (06:18→21:53)
[2016-07-20 07:12] LABS: SCAN/DIFF AUTO DIFF CONFIRMED
--- NOTE | 2016-07-20 08:10 | HHI.CCPN ---
Subjective Remarks/Hospital Course 65yF with h/o o2 dependent COPD, morbid obesity, ARSEN and recent admission in june for hypercarbic respiratory failure who presents to the emergency department with complaints of weakness and fatigue. for the ER, she was quite somnolent and unable to provide much history. For me, she is nearly unarousable and can provide no history at all. She is on BiPAP on my interview. She is quite hypercarbic with pco2 79, pH 7.2. Subjective 07/18:Afebrile. The patient remains intubated and sedated. Continue to wean PEEP , and beginning CPAP trials. Will begin tubefeeds today. 07/19 Patient is sedated with Diprivan and Fentanyl intubated. Afebrile. 07/20 No acute events overnight. Sedated and intubated. Objective Vital Signs Date Time Temp Pulse Resp B/P Pulse Ox O2 Delivery O2 Flow Rate FiO2 07/20/16 06:00 66 07/20/16 04:28 97 40 07/20/16 04:00 98.3 15 117/46 07/18/16 03:30 15.00 07/18/16 01:15 Bi-Pap Intake and Output 07/19/16 07/19/16 07/20/16 08:00 16:00 00:00 Intake Total 804 ml 725 ml 1257 ml Output Total 750 ml 300 ml 450 ml Balance 54 ml 425 ml 807 ml Result Diagram: 07/20/16 0440 07/20/16 0440 Other Results Laboratory Tests Test 07/19/16 07/20/16 13:15 04:40 Blood Gas Puncture Site ART LINE Blood Gas Patient Temperature 98.6 Blood Gas HCO3 31 mmol/L Blood Gas Base Excess 6.1 mmol/L Blood Gas Oxygen Saturation 95 % Arterial Blood pH 7.36 Arterial Blood Partial 57 mmHg Pressure CO2 Arterial Blood Partial 100 mmHg Pressure O2 Arterial Blood Oxygen Content 15.3 Vol % Arterial Blood 1.4 % Carboxyhemoglobin Arterial Blood Methemoglobin 1.3 % Blood Gas Hemoglobin 11.4 G/DL Oxygen Delivery Device VENTILATOR Blood Gas Ventilator Setting CPAP 5/PS 5/.45 Blood Gas Inspired Oxygen 45 % White Blood Count 7.0 TH/MM3 Red Blood Count 4.17 MIL/MM3 Hemoglobin 9.6 GM/DL Hematocrit 31.8 % Mean Corpuscular Volume 76.2 FL Mean Corpuscular Hemoglobin 23.1 PG Mean Corpuscular Hemoglobin 30.3 % Concent Red Cell Distribution Width 16.3 % Platelet Count 260 TH/MM3 Mean Platelet Volume 8.9 FL Neutrophils (%) (Auto) 81.9 % Lymphocytes (%) (Auto) 8.3 % Monocytes (%) (Auto) 9.4 % Eosinophils (%) (Auto) 0.0 % Basophils (%) (Auto) 0.4 % Neutrophils # (Auto) 5.8 TH/MM3 Lymphocytes # (Auto) 0.6 TH/MM3 Monocytes # (Auto) 0.7 TH/MM3 Eosinophils # (Auto) 0.0 TH/MM3 Basophils # (Auto) 0.0 TH/MM3 CBC Comment AUTO DIFF Differential Comment AUTO DIFF CONFIRMED Sodium Level 139 MEQ/L Potassium Level 4.7 MEQ/L Chloride Level 100 MEQ/L Carbon Dioxide Level 34.4 MEQ/L Anion Gap 5 MEQ/L Blood Urea Nitrogen 28 MG/DL Creatinine 0.90 MG/DL Estimat Glomerular Filtration 76 ML/MIN Rate Random Glucose 307 MG/DL Calcium Level 7.9 MG/DL Phosphorus Level 3.0 MG/DL Magnesium Level 2.7 MG/DL Imaging Last Impressions Chest X-Ray 07/18/16 0600 Signed Impressions: Service Date/Time: July 03:38 - CONCLUSION: 1. Satisfactory position of endotracheal tube as above. Mor Russell MD Objective Remarks GENERAL: Patient is 65yo intubated and sedated SKIN: Warm and dry. HEAD: Normocephalic. EYES: No scleral icterus. No injection or drainage. NECK: Supple, trachea midline. No JVD or lymphadenopathy. CARDIOVASCULAR: Regular rate and rhythm without murmurs, gallops, or rubs. RESPIRATORY: Breath sounds equal bilaterally. No accessory muscle use. GASTROINTESTINAL: Abdomen soft, non-tender, nondistended. MUSCULOSKELETAL: No cyanosis, or edema. Neuro: Sedated and intubated Date of Insertion: Jul 17, 2016 A/P Assessment and Plan Assessment: 65yF with h/o COPD o2 dependent on 4L continuously and likely ARSEN, morbid obesity, possible obesity hypoventilation syndrome who presents in acute hypoxic and hypercarbic respiratory failure intubated and sedated. Plan by Systems: Neuro: Metabolic Encephalopathy --likely secondary to hypercarbia. --fent/prop for goal RASS -2 while intubated. -- Daily sedation vacation Resp: Acute hypoxic and Hypercarbic respiratory failure COPD Exacerbation Possible Health Care Associated Pneumonia Obstructive Sleep Apnea Possible Obesity Hypoventilation Syndrome --Continue with vent support keep sat >92%. Check CXR --Decrease solumedrol 40mg IV q12h, Nebs q4h and q2h prn --Ventilator Bundle, CPAP trials as margaret. --HOB at 30 degrees CV: Hypertension Congestive Heart Failure with Preserved EF --Place on Lopressor 25mg Q12. Monitor HR and BP keep MAP>65mmHg. -Continue with Plavix, Lipitor Renal: --Monitor renal function, I/O's, electrolytes replacement per protocol. -On Lasix 20mg BID FEN/GI: Morbid Obesity -Continue TF-Glucerna 1.5 with goal rate 40cc/hr -On Protonix for GI prophylaxis --bowel regimen with senna/colace/miraLAX ID: Possible health care associated pneumonia --Continue with abx (Vanco, cefepime and azithromycin)monitor for signs of infections ( Fever, WBC) -Strep pneumonia and Legionella urinary Ag negative. For up on BC. Check sputum cx, Heme: Monitor CBC Endocrine: Diabetes Hyperglycemia of Critical Illness --SSI, medium scale, q6h, add Levemir 5uQ12 Prophylaxis: DVT Prophylaxis: --SCDs --Lovenox 40mg SQ qday GI Prophylaxis: --Protonix 40mg iv q24h. CCT 30 mins Lluvia Gamboa MD Jul 20, 2016 08:10
[2016-07-20] MEDS ORDERED: PHARMACY ORDERED LAB XX ONE (08:45)
--- NOTE | 2016-07-20 08:57 | RADRPT ---
EXAM DATE/TIME: 07/20/2016 08:23 [facility] COMPARISON: CHEST SINGLE AP, July 18, 2016, 3:38. INDICATIONS : Short of Breath. MEDICAL HISTORY : Congestive heart failure. SURGICAL HISTORY : None. ENCOUNTER: Subsequent ACUITY: 3 days PAIN SCORE: Non-responsive. LOCATION: Bilateral chest FINDINGS: Mild cardiomegaly and mild basilar predominant interstitial opacities are again noted. Probably a sma ll pleural effusion developing on the left. No pneumothorax seen. Endotracheal tube tip is about 2 cm above the level of the teresita. There is a nasogastric tube coursi ng into the stomach. CONCLUSION: Mild failure. Small pleural effusion developing on the left. Chito Arellano MD on July 20, 2016 at 8:54 Board Certified Radiologist. This report was verified electronically.
[2016-07-20] MEDS: methylPREDNISolone SOD SUCC 125 MG/2 ML VIAL IV PUSH SCH ×2 (09:50→20:24)
[2016-07-20] MEDS: CHLORHEXIDINE 0.12% (ORAL KIT) 15 ML CUP MT SCH ×2 (09:50→20:25)
[2016-07-20] MEDS: POLYETHYLENE GLYCOL 17 GM PKG PO SCH (09:50)
[2016-07-20] MEDS: SODIUM CHLORIDE 0.9% FLUSH 5 ML FLUSH IV FLUSH SCH ×2 (09:50→20:23)
[2016-07-20] MEDS: VANCOMYCIN INJ 1,750 MG in SODIUM CHLORID 0.9% 500 ML INJ 500 ML IV SCH (09:51)
[2016-07-20] MEDS: CLOPIDOGREL 75 MG TAB PO SCH (09:51)
[2016-07-20] MEDS: DOCUSATE SODIUM 50 MG/SENNA 8.6 MG TAB PO SCH ×2 (09:51→20:22)
[2016-07-20] MEDS: SERTRALINE HCL 50 MG TAB PO SCH (09:51)
[2016-07-20] MEDS: PANTOPRAZOLE SODIUM 40 MG VIAL IV SCH (09:51)
[2016-07-20] MEDS: FUROSEMIDE 20 MG TAB PO SCH ×2 (09:51→20:22)
[2016-07-20 12:00] LABS: BLOOD GAS BASE EXCESS 5.8 mmol/L (-2-2); BLOOD GAS CARBOXYHEMOGLOBIN 1.4 % (0-4); BLOOD GAS HCO3 31 mmol/L (22-26); BLOOD GAS METHEMOGLOBIN 1.2 % (0-2); BLOOD GAS O2 HGB SATURATION 88 % (90-100); BLOOD GAS OXYGEN CONTENT 14.6 Vol % (12.0-20.0); BLOOD GAS PCO2 61 mmHg (38-42); BLOOD GAS PO2 66 mmHg (61-120); BLOOD GAS TOTAL HGB 11.7 G/DL (12.0-16.0); TEMP CORR TO 98.6
[2016-07-20 12:01] LABS: CRITICAL VALUE YES; DRAW SITE ART LINE; FIO2 35 %; OXYGEN DEVICE VENTILATOR; STAT NO; VENT SETTINGS CPAP 5/8PS
[2016-07-20] MEDS ORDERED: METOPROLOL TARTRATE 25 MG TAB PO SCH (13:00)
[2016-07-20] MEDS: fentaNYL DRIP 250 ML IV SCH ×2 (13:29→20:22)
[2016-07-20] MEDS: INSULIN DETEMIR 100 UNITS/ML VIAL SQ SCH ×2 (15:55→20:24)
[2016-07-20] MEDS: ATORVASTATIN 40 MG TAB PO SCH (20:22)
[2016-07-20] MEDS: METOPROLOL TARTRATE 25 MG TAB PO SCH (20:24)
[2016-07-20] MEDS: ENOXAPARIN SODIUM 40 MG/0.4 ML SYRINGE SQ SCH (22:46)
[2016-07-21] VITALS (17 sets, daily range): BP systolic 96–155; BP diastolic 46–79; PULSE 60–89; RESP 12–16; TEMP 97.3–97.8; O2SAT 89–100
[2016-07-21] MEDS: RESP: ALBUTEROL 2.5 MG/IPRATROPIUM 0.5 MG NEB (SCH) INH ×7 (00:05→23:34)
[2016-07-21] MEDS: hydrALAZINE HCL 20 MG/ML VIAL IV PUSH PRN ×2 (00:31→08:28)
[2016-07-21] MEDS: CHLORHEXIDINE GLUCONATE 2 % 1 PACK (2 CLOTHS) TOP SCH (04:00)
[2016-07-21] MEDS: PROPOFOL 1000 MG/100 ML INJ 100 ML IV SCH (04:18)
[2016-07-21] MEDS: CEFEPIME INJ 1,000 MG in SODIUM CHLORIDE 0.9% INJ 100 ML IV SCH ×3 (05:45→20:30)
[2016-07-21] MEDS: INSULIN NovoLIN REGULAR SUPPLEMENTAL SCALE SQ SCH ×3 (05:46→20:29)
[2016-07-21] MEDS: CHLORHEXIDINE 0.12% (ORAL KIT) 15 ML CUP MT SCH ×2 (08:00→20:00)
[2016-07-21] MEDS: methylPREDNISolone SOD SUCC 125 MG/2 ML VIAL IV PUSH SCH ×2 (08:08→20:30)
[2016-07-21] MEDS: PANTOPRAZOLE SODIUM 40 MG VIAL IV SCH (08:08)
[2016-07-21] MEDS: VANCOMYCIN INJ 1,750 MG in SODIUM CHLORID 0.9% 500 ML INJ 500 ML IV SCH (08:08)
[2016-07-21] MEDS: SODIUM CHLORIDE 0.9% FLUSH 5 ML FLUSH IV FLUSH SCH ×2 (08:08→20:30)
[2016-07-21] MEDS: FUROSEMIDE 20 MG TAB PO SCH ×2 (08:09→20:28)
[2016-07-21] MEDS: SERTRALINE HCL 50 MG TAB PO SCH (08:09)
[2016-07-21] MEDS: DOCUSATE SODIUM 50 MG/SENNA 8.6 MG TAB PO SCH ×2 (08:09→20:31)
[2016-07-21] MEDS: CLOPIDOGREL 75 MG TAB PO SCH (08:10)
[2016-07-21] MEDS: POLYETHYLENE GLYCOL 17 GM PKG PO SCH (08:10)
[2016-07-21] MEDS: METOPROLOL TARTRATE 25 MG TAB PO SCH ×2 (08:10→20:31)
[2016-07-21] MEDS: INSULIN DETEMIR 100 UNITS/ML VIAL SQ SCH ×3 (08:10→20:28)
[2016-07-21] MEDS ORDERED: BUMETANIDE INJ 1 MG/4 ML VIAL IV PUSH ONE (08:30)
--- NOTE | 2016-07-21 08:46 | HHI.CCPN ---
Subjective Remarks/Hospital Course 65yF with h/o o2 dependent COPD, morbid obesity, ARSEN and recent admission in june for hypercarbic respiratory failure who presents to the emergency department with complaints of weakness and fatigue. for the ER, she was quite somnolent and unable to provide much history. For me, she is nearly unarousable and can provide no history at all. She is on BiPAP on my interview. She is quite hypercarbic with pco2 79, pH 7.2. Subjective 07/18:Afebrile. The patient remains intubated and sedated. Continue to wean PEEP , and beginning CPAP trials. Will begin tubefeeds today. 07/19 Patient is sedated with Diprivan and Fentanyl intubated. Afebrile. 07/20 No acute events overnight. Sedated and intubated. 07/21: Sedated with propofol but wakes up easily, follows some commands. Will attempt SBT, also diurese with 2 mg IV Bumex Objective Vital Signs Date Time Temp Pulse Resp B/P Pulse Ox O2 Delivery O2 Flow Rate FiO2 07/21/16 07:16 100 35 07/21/16 06:00 65 07/21/16 04:00 97.6 14 111/53 07/18/16 03:30 15.00 07/18/16 01:15 Bi-Pap Intake and Output 07/20/16 07/20/16 07/21/16 08:00 16:00 00:00 Intake Total 931 ml 1159 ml 515 ml Output Total 525 ml 700 ml 300 ml Balance 406 ml 459 ml 215 ml Result Diagram: 07/20/16 0440 07/20/16 0440 Other Results Laboratory Tests Test 07/20/16 11:54 Blood Gas Puncture Site ART LINE Blood Gas Patient Temperature 98.6 Blood Gas HCO3 31 mmol/L (22-26) Blood Gas Base Excess 5.8 mmol/L (-2-2) Blood Gas Oxygen Saturation 88 % (90-100) Arterial Blood pH 7.33 (7.380-7.420) Arterial Blood Partial 61 mmHg (38-42) Pressure CO2 Arterial Blood Partial 66 mmHg Pressure O2 (61-120) Arterial Blood Oxygen Content 14.6 Vol % (12.0-20.0) Arterial Blood 1.4 % (0-4) Carboxyhemoglobin Arterial Blood Methemoglobin 1.2 % (0-2) Blood Gas Hemoglobin 11.7 G/DL (12.0-16.0) Oxygen Delivery Device VENTILATOR Blood Gas Ventilator Setting CPAP 5/8PS Blood Gas Inspired Oxygen 35 % Imaging Last Impressions Chest X-Ray 07/18/16 0600 Signed Impressions: Service Date/Time: July 03:38 - CONCLUSION: 1. Satisfactory position of endotracheal tube as above. Mor Russell MD Objective Remarks GENERAL: Patient is 65yo intubated and sedated SKIN: Warm and dry. HEAD: Normocephalic. EYES: No scleral icterus. No injection or drainage. NECK: Supple, trachea midline. No JVD or lymphadenopathy. CARDIOVASCULAR: Regular rate and rhythm without murmurs, gallops, or rubs. Heart sounds are distant. RESPIRATORY: Breath sounds equal bilaterally, diminished at the bases. No accessory muscle use. GASTROINTESTINAL: Abdomen soft, non-tender, nondistended. MUSCULOSKELETAL: No cyanosis, or edema. Neuro: Sedated and intubated wakes up easily follows commands. No focal deficits Urinary Catheter: Yes Assessment to: Continue Date of Insertion: Jul 17, 2016 A/P Assessment and Plan Assessment: 65yF with h/o COPD O2 dependent on 4L continuously and likely ARSEN, morbid obesity, possible obesity hypoventilation syndrome who presents in acute hypoxic and hypercarbic respiratory failure intubated and sedated. Plan by Systems: Neuro: Metabolic Encephalopathy --likely secondary to hypercarbia. --fent/prop for goal RASS -2 while intubated. --Daily sedation vacation Resp: Acute hypoxic and Hypercarbic respiratory failure COPD Exacerbation Possible Health Care Associated Pneumonia Obstructive Sleep Apnea Possible Obesity Hypoventilation Syndrome --Continue with vent support keep sat >90%. Check CXR repeat today --Solumedrol 40mg IV q12h, Nebs q4h and q2h prn --Ventilator Bundle, SBT today with ABG, parameters --HOB at 30 degrees CV: Hypertension Congestive Heart Failure with Preserved EF --Place on Lopressor 25mg Q12. Monitor HR and BP keep MAP>65mmHg. --Continue with Plavix, Lipitor --Continue Lasix 20 mg twice a day --Bumex 2 mg IV 1 today Renal: --Monitor renal function, I/O's, electrolytes replacement per protocol. -On Lasix 20mg BID. Bumex 2 mg IV 1 today FEN/GI: Morbid Obesity --Continue TF-Glucerna 1.5 with goal rate 40cc/hr --On Protonix for GI prophylaxis --Bowel regimen with senna/Colace/MiraLAX ID: Possible health care associated pneumonia --Continue with abx (Vanco, cefepime and azithromycin)monitor for signs of infections ( Fever, WBC). Consolidate antibiotics once cultures are back -Strep pneumonia and Legionella urinary Ag negative. Follow up on BC, sputum cx, Heme: Monitor CBC Endocrine: Diabetes Hyperglycemia of Critical Illness --SSI, medium scale, q6h, increase Levemir to 15uQ12 Prophylaxis: DVT Prophylaxis: --SCDs --Lovenox 40mg SQ qday GI Prophylaxis: --Protonix 40mg iv q24h. CCT 35 mins Cate Dale MD Jul 21, 2016 08:46
[2016-07-21 09:07] LABS: BLOOD GAS BASE EXCESS 5.3 mmol/L (-2-2); BLOOD GAS CARBOXYHEMOGLOBIN 1.6 % (0-4); BLOOD GAS HCO3 31 mmol/L (22-26); BLOOD GAS METHEMOGLOBIN 1.3 % (0-2); BLOOD GAS O2 HGB SATURATION 90 % (90-100); BLOOD GAS OXYGEN CONTENT 15.1 Vol % (12.0-20.0); BLOOD GAS PCO2 56 mmHg (38-42); BLOOD GAS PO2 69 mmHg (61-120); BLOOD GAS TOTAL HGB 11.9 G/DL (12.0-16.0); TEMP CORR TO 98.6
[2016-07-21 09:08] LABS: CRITICAL VALUE YES; DRAW SITE ART LINE; FIO2 35 %; OXYGEN DEVICE VENTILATOR; STAT NO; VENT SETTINGS CPAP 5/5PS
--- NOTE | 2016-07-21 09:29 | RADRPT ---
EXAM DATE/TIME: 07/21/2016 08:41 [facility] COMPARISON: CHEST SINGLE AP, July 20, 2016, 8:23. INDICATIONS : Shortness of breath. Respiratory disease. MEDICAL HISTORY : Congestive heart failure. SURGICAL HISTORY : None. ENCOUNTER: Subsequent ACUITY: 4 - 6 days PAIN SCORE: Non-responsive. LOCATION: Bilateral chest FINDINGS: Single AP view of the chest. Endotracheal tube, nasogastric tube in place. Left lower lobe consolidat ion versus atelectasis unchanged. Cardiac silhouette enlargement unchanged. No evidence of pneumothor ax. CONCLUSION: No significant change. Persistent left lower lobe consolidation versus atelectasis and cardiac silhou ette enlargement. Tommy Pryor MD on July 21, 2016 at 9:26 Board Certified Radiologist. This report was verified electronically.
[2016-07-21] MEDS: ACETAMINOPHEN 325 MG TAB PO PRN (11:02)
[2016-07-21 12:17] LABS: AUTOMATED NEUTROPHIL # 9.7 TH/MM3 (1.8-7.7); BASOPHIL % 0.2 % (0.0-2.0); EOSINOPHIL % 0.2 % (0.0-4.0); HEMATOCRIT 39.3 % (35.0-46.0); LYMPH % 6.4 % (9.0-44.0); LYMPHOCYTE # 0.7 TH/MM3 (1.0-4.8); MEAN CELL VOLUME 76.3 FL (80.0-100.0); MEAN CORPUSCULAR HEMOGLOBIN 23.1 PG (27.0-34.0); MEAN CORPUSCULAR HGB CONC 30.2 % (32.0-36.0); MONO % 7.4 % (0.0-8.0); NEUT % 85.8 % (16.0-70.0); PLATELET COUNT 290 TH/MM3 (150-450); RED BLOOD COUNT 5.15 MIL/MM3 (4.00-5.30); RED CELL DISTRIBUTION WIDTH 16.4 % (11.6-17.2); WHITE BLOOD COUNT 11.3 TH/MM3 (4.0-11.0)
[2016-07-21 12:21] LABS: BICARBONATE 35.6 MEQ/L (21.0-32.0); MAGNESIUM 2.9 MG/DL (1.5-2.5); POTASSIUM 4.7 MEQ/L (3.5-5.1)
[2016-07-21 12:25] LABS: HEMO FLAGS AUTO DIFF
[2016-07-21 12:42] LABS: SCAN/DIFF AUTO DIFF CONFIRMED
[2016-07-21] MEDS: HYDROmorphone HCL PF 1 MG/ML VIAL IV PRN (20:29)
[2016-07-21] MEDS: ATORVASTATIN 40 MG TAB PO SCH (20:31)
[2016-07-21] MEDS: ENOXAPARIN SODIUM 40 MG/0.4 ML SYRINGE SQ SCH (22:32)
[2016-07-21] MEDS: AZITHROMYCIN INJ 500 MG in SODIUM CHLOR 0.9% 250 ML INJ 250 ML IV SCH (22:33)
[2016-07-22] VITALS (11 sets, daily range): BP systolic 107–122; BP diastolic 55–82; PULSE 77–120; RESP 16–20; TEMP 97.5–98.3; O2SAT 19–98
[2016-07-22] MEDS: INSULIN NovoLIN REGULAR SUPPLEMENTAL SCALE SQ SCH ×4 (00:34→18:00)
[2016-07-22] MEDS: CHLORHEXIDINE GLUCONATE 2 % 1 PACK (2 CLOTHS) TOP SCH (04:00)
[2016-07-22] MEDS: RESP: ALBUTEROL 2.5 MG/IPRATROPIUM 0.5 MG NEB (SCH) INH ×5 (04:22→20:34)
[2016-07-22 05:53] LABS: HEMATOCRIT 35.2 % (35.0-46.0); MEAN CORPUSCULAR HEMOGLOBIN 23.1 PG (27.0-34.0); MEAN CORPUSCULAR HGB CONC 30.9 % (32.0-36.0); PLATELET COUNT 282 TH/MM3 (150-450); RED CELL DISTRIBUTION WIDTH 16.1 % (11.6-17.2); WHITE BLOOD COUNT 8.9 TH/MM3 (4.0-11.0)
[2016-07-22] MEDS: CEFEPIME INJ 1,000 MG in SODIUM CHLORIDE 0.9% INJ 100 ML IV SCH ×3 (06:03→22:00)
[2016-07-22 06:10] LABS: REVIEW FLAG FINAL
[2016-07-22 06:14] LABS: BICARBONATE 36.6 MEQ/L (21.0-32.0); POTASSIUM 4.4 MEQ/L (3.5-5.1)
[2016-07-22] MEDS: CHLORHEXIDINE 0.12% (ORAL KIT) 15 ML CUP MT SCH ×2 (08:00→20:00)
[2016-07-22] MEDS: methylPREDNISolone SOD SUCC 125 MG/2 ML VIAL IV PUSH SCH ×2 (08:35→21:54)
[2016-07-22] MEDS: PANTOPRAZOLE SODIUM 40 MG VIAL IV SCH (08:35)
[2016-07-22] MEDS: POLYETHYLENE GLYCOL 17 GM PKG PO SCH (08:35)
[2016-07-22] MEDS: CLOPIDOGREL 75 MG TAB PO SCH (08:35)
[2016-07-22] MEDS: FUROSEMIDE 20 MG TAB PO SCH ×2 (08:35→21:58)
[2016-07-22] MEDS: DOCUSATE SODIUM 50 MG/SENNA 8.6 MG TAB PO SCH ×2 (08:35→21:58)
[2016-07-22] MEDS: SODIUM CHLORIDE 0.9% FLUSH 5 ML FLUSH IV FLUSH SCH ×2 (08:36→21:54)
[2016-07-22] MEDS: VANCOMYCIN INJ 1,750 MG in SODIUM CHLORID 0.9% 500 ML INJ 500 ML IV SCH (08:36)
[2016-07-22] MEDS: SERTRALINE HCL 50 MG TAB PO SCH (08:36)
[2016-07-22] MEDS: INSULIN DETEMIR 100 UNITS/ML VIAL SQ SCH ×2 (08:36→21:00)
[2016-07-22] MEDS: METOPROLOL TARTRATE 25 MG TAB PO SCH ×2 (08:36→21:58)
--- NOTE | 2016-07-22 08:44 | HHI.CCPN ---
Subjective Remarks/Hospital Course 65yF with h/o o2 dependent COPD, morbid obesity, ARSEN and recent admission in june for hypercarbic respiratory failure who presents to the emergency department with complaints of weakness and fatigue. for the ER, she was quite somnolent and unable to provide much history. For me, she is nearly unarousable and can provide no history at all. She is on BiPAP on my interview. She is quite hypercarbic with pco2 79, pH 7.2. Subjective 07/18:Afebrile. The patient remains intubated and sedated. Continue to wean PEEP , and beginning CPAP trials. Will begin tubefeeds today. 07/19 Patient is sedated with Diprivan and Fentanyl intubated. Afebrile. 07/20 No acute events overnight. Sedated and intubated. 07/21: Sedated with propofol but wakes up easily, follows some commands. Will attempt SBT, also diurese with 2 mg IV Bumex 07/22 Patient s/p extubation yesterday. On 2-3L oxygen with good sats. Afebrile. Objective Vital Signs Date Time Temp Pulse Resp B/P Pulse Ox O2 Delivery O2 Flow Rate FiO2 07/22/16 08:19 98 Nasal Cannula 2.00 07/22/16 06:00 80 07/22/16 04:00 98.0 16 107/55 07/21/16 09:17 28 Intake and Output 07/21/16 07/21/16 07/22/16 08:00 16:00 00:00 Intake Total 1000 ml 340 ml 470 ml Output Total 900 ml 2650 ml 1300 ml Balance 100 ml -2310 ml -830 ml Result Diagram: 07/22/16 0508 07/22/16 0508 Other Results Laboratory Tests Test 07/21/16 07/21/16 07/22/16 09:00 11:15 05:08 Blood Gas Puncture Site ART LINE Blood Gas Patient Temperature 98.6 Blood Gas HCO3 31 mmol/L Blood Gas Base Excess 5.3 mmol/L Blood Gas Oxygen Saturation 90 % Arterial Blood pH 7.36 Arterial Blood Partial 56 mmHg Pressure CO2 Arterial Blood Partial 69 mmHg Pressure O2 Arterial Blood Oxygen Content 15.1 Vol % Arterial Blood 1.6 % Carboxyhemoglobin Arterial Blood Methemoglobin 1.3 % Blood Gas Hemoglobin 11.9 G/DL Oxygen Delivery Device VENTILATOR Blood Gas Ventilator Setting CPAP 5/5PS Blood Gas Inspired Oxygen 35 % White Blood Count 11.3 TH/MM3 8.9 TH/MM3 Red Blood Count 5.15 MIL/MM3 4.70 MIL/MM3 Hemoglobin 11.9 GM/DL 10.9 GM/DL Hematocrit 39.3 % 35.2 % Mean Corpuscular Volume 76.3 FL 75.0 FL Mean Corpuscular Hemoglobin 23.1 PG 23.1 PG Mean Corpuscular Hemoglobin 30.2 % 30.9 % Concent Red Cell Distribution Width 16.4 % 16.1 % Platelet Count 290 TH/MM3 282 TH/MM3 Mean Platelet Volume 9.0 FL 9.2 FL Neutrophils (%) (Auto) 85.8 % Lymphocytes (%) (Auto) 6.4 % Monocytes (%) (Auto) 7.4 % Eosinophils (%) (Auto) 0.2 % Basophils (%) (Auto) 0.2 % Neutrophils # (Auto) 9.7 TH/MM3 Lymphocytes # (Auto) 0.7 TH/MM3 Monocytes # (Auto) 0.8 TH/MM3 Eosinophils # (Auto) 0.0 TH/MM3 Basophils # (Auto) 0.0 TH/MM3 CBC Comment AUTO DIFF Differential Comment AUTO DIFF CONFIRMED Sodium Level 138 MEQ/L 137 MEQ/L Potassium Level 4.7 MEQ/L 4.4 MEQ/L Chloride Level 96 MEQ/L 96 MEQ/L Carbon Dioxide Level 35.6 MEQ/L 36.6 MEQ/L Anion Gap 6 MEQ/L 4 MEQ/L Blood Urea Nitrogen 29 MG/DL 22 MG/DL Creatinine 0.93 MG/DL 0.79 MG/DL Estimat Glomerular Filtration 73 ML/MIN 89 ML/MIN Rate Random Glucose 174 MG/DL 213 MG/DL Calcium Level 8.6 MG/DL 8.4 MG/DL Phosphorus Level 3.6 MG/DL Magnesium Level 2.9 MG/DL Imaging Last Impressions Chest X-Ray 07/21/16 0000 Signed Impressions: Service Date/Time: Thursday, July 21, 2016 08:41 - CONCLUSION: No significant change. Persistent left lower lobe consolidation versus atelectasis and cardiac silhouette enlargement. Tommy Pryor MD Objective Remarks GENERAL: Patient is 65yo lying in bed in NAD SKIN: Warm and dry. HEAD: Normocephalic. EYES: No scleral icterus. No injection or drainage. NECK: Supple, trachea midline. No JVD or lymphadenopathy. CARDIOVASCULAR: Regular rate and rhythm without murmurs, gallops, or rubs. Heart sounds are distant. RESPIRATORY: Breath sounds equal bilaterally, No accessory muscle use. GASTROINTESTINAL: Abdomen soft, non-tender, nondistended. MUSCULOSKELETAL: No cyanosis, or edema. Neuro: Awake and alert. No focal deficits Date of Insertion: Jul 17, 2016 A/P Assessment and Plan Assessment: 65yF with h/o COPD O2 dependent on 4L continuously and likely ARSEN, morbid obesity, possible obesity hypoventilation syndrome who presents in acute hypoxic and hypercarbic respiratory failure extubated 07/21. Plan by Systems: Neuro: Metabolic Encephalopathy- Resolved --Monitor neuro status and avoid sedatives Resp: Acute hypoxic and Hypercarbic respiratory failure COPD Exacerbation Possible Health Care Associated Pneumonia Obstructive Sleep Apnea Possible Obesity Hypoventilation Syndrome --Continue with oxygen keep sat >90%. --Solumedrol 40mg IV q12h, Nebs q4h and q2h prn --NIPPV PRN for resp distress -Pulm eval likely need PFT and sleep study as outpatient. --HOB at 30 degrees CV: Hypertension Congestive Heart Failure with Preserved EF --On Lopressor 25mg Q12. Monitor HR and BP keep MAP>65mmHg. --Continue with Plavix, Lipitor --Continue Lasix 20 mg twice a day Renal: --Monitor renal function, I/O's, electrolytes replacement per protocol. -On Lasix 20mg BID. FEN/GI: Morbid Obesity --On PO diet --On Protonix for GI prophylaxis --Bowel regimen with senna/Colace/MiraLAX ID: Possible health care associated pneumonia --Continue with abx (Vanco, cefepime and azithromycin)monitor for signs of infections ( Fever, WBC).d/c Vanco. -Strep pneumonia and Legionella urinary Ag negative. All cxs negative to date Heme: Monitor CBC Endocrine: Diabetes Hyperglycemia of Critical Illness --SSI, medium scale, q6h, Levemir 20 uQ12 Prophylaxis: DVT Prophylaxis: --SCDs --Lovenox 40mg SQ qday GI Prophylaxis: --Protonix 40mg iv q24h. PT eval and treat Will sign off and transfer care to [facility] Level 3 Lluvia Gamboa MD Jul 22, 2016 08:44
[2016-07-22] MEDS: HYDROmorphone HCL PF 1 MG/ML VIAL IV PRN (09:02)
[2016-07-22] MEDS: ENOXAPARIN SODIUM 40 MG/0.4 ML SYRINGE SQ SCH (21:56)
[2016-07-22] MEDS: ACETAMINOPHEN 325 MG TAB PO PRN (21:57)
[2016-07-22] MEDS: ATORVASTATIN 40 MG TAB PO SCH (21:57)
[2016-07-22] MEDS: AZITHROMYCIN INJ 500 MG in SODIUM CHLOR 0.9% 250 ML INJ 250 ML IV SCH (21:59)
[2016-07-23] VITALS (21 sets, daily range): BP systolic 99–167; BP diastolic 58–98; PULSE 77–110; RESP 14–27; TEMP 97.5–98.2; O2SAT 90–100
[2016-07-23] MEDS: RESP: ALBUTEROL 2.5 MG/IPRATROPIUM 0.5 MG NEB (SCH) INH ×7 (00:28→23:36)
[2016-07-23] MEDS: CHLORHEXIDINE GLUCONATE 2 % 1 PACK (2 CLOTHS) TOP SCH (04:00)
[2016-07-23 05:42] LABS: AUTOMATED NEUTROPHIL # 6.6 TH/MM3 (1.8-7.7); BASOPHIL % 0.3 % (0.0-2.0); HEMATOCRIT 36.9 % (35.0-46.0); LYMPHOCYTE # 1.3 TH/MM3 (1.0-4.8); MEAN CELL VOLUME 76.2 FL (80.0-100.0); MEAN CORPUSCULAR HEMOGLOBIN 23.2 PG (27.0-34.0); MEAN CORPUSCULAR HGB CONC 30.4 % (32.0-36.0); MONO % 8.3 % (0.0-8.0); NEUT % 76.4 % (16.0-70.0); PLATELET COUNT 295 TH/MM3 (150-450); RED BLOOD COUNT 4.84 MIL/MM3 (4.00-5.30); RED CELL DISTRIBUTION WIDTH 16.1 % (11.6-17.2); WHITE BLOOD COUNT 8.6 TH/MM3 (4.0-11.0)
[2016-07-23 05:47] LABS: HEMO FLAGS AUTO DIFF
[2016-07-23 06:16] LABS: BICARBONATE 33.9 MEQ/L (21.0-32.0); MAGNESIUM 2.4 MG/DL (1.5-2.5); POTASSIUM 4.5 MEQ/L (3.5-5.1)
--- NOTE | 2016-07-23 06:24 | RADRPT ---
EXAM DATE/TIME: 07/23/2016 04:53 [place] COMPARISON: CHEST SINGLE AP, July 21, 2016, 8:41. INDICATIONS : Short of breath. MEDICAL HISTORY : Congestive heart failure. SURGICAL HISTORY : None. ENCOUNTER: Subsequent ACUITY: 4 - 6 days PAIN SCORE: Non-responsive. LOCATION: Bilateral chest FINDINGS: The heart size is enlarged. There is increased density in the left perihilar region and at the bases bilaterally being worse on the left. CONCLUSION: Bilateral areas of consolidation or atelectasis being worse on the left. Chito Church MD on July 23, 2016 at 6:22 Board Certified Radiologist. This report was verified electronically.
[2016-07-23 06:36] LABS: CRITICAL VALUE YES
[2016-07-23 06:57] LABS: BASOPHILS 1 % (0-2); MYELOCYTES 1 % (0-0); NEUTROPHIL # MANUAL DIFF 6.7 TH/MM3 (1.8-7.7); POLYS (SEG NEUTROPHILS) 77 % (16-70); WBC DIFF SAMPLE 100
[2016-07-23 06:58] LABS: PLATELET ESTIMATE SMEAR NORMAL (NORMAL); PLATELET MORPHOLOGY NORMAL (NORMAL); SCAN/DIFF FINAL DIFF MANUAL
[2016-07-23] MEDS: CEFEPIME INJ 1,000 MG in SODIUM CHLORIDE 0.9% INJ 100 ML IV SCH ×3 (07:04→22:36)
[2016-07-23] MEDS: INSULIN NovoLIN REGULAR SUPPLEMENTAL SCALE SQ SCH ×5 (07:06→23:57)
[2016-07-23] MEDS: CHLORHEXIDINE 0.12% (ORAL KIT) 15 ML CUP MT SCH ×2 (08:00→20:00)
--- NOTE | 2016-07-23 08:44 | MB ---
cc: CHARLI GAMBOA M.D., JOHN DATE OF CONSULTATION: 07/22/2016 REASON FOR CONSULTATION Respiratory failure and obstructive sleep apnea. HISTORY OF PRESENT ILLNESS This is a 65-year-old extremely overweight -[place] female with a history of obstructive sleep apnea and COPD. She has been on oxygen at the assisted and apparently was brought in with respiratory failure. The patient was somewhat lethargic and due to her altered mental status and respiratory distress was brought in for evaluation and placed on BiPAP in the emergency room. Her PCO2 was over 75, pH was 7.2 and the PO2 was 171 on a 100% non-rebreather mask. After BiPAP her pH improved to 7.4 with a PCO2 of 51 and PO2 of 64. The patient apparently went into progressive respiratory distress in the ER and had to be intubated and placed on mechanical ventilation support. She also had to be sedated after being on the ventilator. She was weaned off the ventilator over the next 72 hours and extubated as of yesterday. She is now on nasal cannula at 3-4 liters. She is also on BiPAP at night. The patient is alert, cooperative and responds to all questions appropriately. She does have some significant leg edema. She has been receiving diuretic therapy due to fluid overload. She denied any chest pains but complained of some wheezing. PAST MEDICAL HISTORY 1. Diabetes mellitus. 2. Extreme obesity. 3. Chronic stasis dermatitis. 4. History of coronary artery disease with previous HI. 5. Rheumatoid arthritis. 6. History of CHF. 7. Hypertension. 8. Glaucoma. 9. Depression with anxiety. PAST SURGICAL HISTORY 1. Hysterectomy. 2. Cataract repair. 3. C-sections. 4. Right iliac artery stent. 5. Tubal ligation. 6. Breast biopsy with removal of a breast cyst. HABITS The patient does not smoke presently. The patient has a prior history of smoking on and off for over 20 years. No alcohol use. REVIEW OF SYSTEMS The patient is overweight. She has epigastric distress. Denies nausea or vomiting. She has no urinary symptoms. No leg or calf muscle pains. She does have multiple joint pains and back pain. She has some anxiety attacks. FAMILY HISTORY Family history is unavailable and noncontributory. PHYSICAL EXAMINATION GENERAL: This very obese middle-aged -[place] female is sitting up in bed. There is no pallor or cyanosis. No icterus. She has 2+ leg edema. VITAL SIGNS: Blood pressure 160/70, pulse 85, respirations 24, temperature 98.2. HEENT: Head normocephalic. Pupils are reactive and equal. Tongue is moist. Throat is clear. NECK: Supple with mild venous distension. Trachea midline. No thyroid enlargement. CHEST: Equal movements with distant breath sounds and occasional scattered wheezes in the upper chest. HEART: Heart sounds are regular, S1 and S2, no murmur. ABDOMEN: Soft, protuberant. No masses. EXTREMITIES: Venous stasis dermatitis and mild edema. Peripheral pulses are not well felt. The patient does move her extremities sluggishly. NEUROLOGIC: 1+ reflexes. Cranial nerves grossly intact. RECTAL: Deferred. SKIN: Dry and cool. IMPRESSION 1. Hypercapnic respiratory failure, resolved. 2. Obstructive sleep apnea syndrome. 3. Congestive heart failure, compensated. 4. Hypertension. 5. Rheumatoid arthritis. 6. Hyperglycemia. 7. Exogenous obesity. 8. Chronic obstructive pulmonary disease. PLAN 1. The patient has been placed on O2 at 3 liters. Nebulized DuoNeb solution added q.i.d. 2. Will continue with antibiotic coverage including Zithromax 500 mg IV daily and cefepime one gram IV q.8h. 3. BiPAP will be placed at night, at 12/5 cm and 28% FIO2. 4. Continue with diuretic therapy including Lasix 20 mg twice a day. 5. Electrolytes will be repeated in the a.m. 6. Solu-Medrol 40 mg b.i.d. will be continued and switched to prednisone in the a.m. 7. The patient could be transferred to the telemetry unit. I will follow the case with you Dr. Gamboa. Thank you for this consultation. MD ROSI Paula/BOB /7:07 PM /8:29 AM
[2016-07-23] MEDS ORDERED: PHARMACY ORDERED LAB XX ONE (08:45)
[2016-07-23] MEDS: PANTOPRAZOLE SODIUM 40 MG VIAL IV SCH (08:56)
[2016-07-23] MEDS: SODIUM CHLORIDE 0.9% FLUSH 5 ML FLUSH IV FLUSH SCH ×2 (08:57→21:13)
[2016-07-23] MEDS: methylPREDNISolone SOD SUCC 125 MG/2 ML VIAL IV PUSH SCH ×2 (08:57→21:13)
[2016-07-23] MEDS: POLYETHYLENE GLYCOL 17 GM PKG PO SCH (08:58)
[2016-07-23] MEDS: METOPROLOL TARTRATE 25 MG TAB PO SCH ×2 (08:58→21:13)
[2016-07-23] MEDS: FUROSEMIDE 20 MG TAB PO SCH ×2 (08:58→21:12)
[2016-07-23] MEDS: DOCUSATE SODIUM 50 MG/SENNA 8.6 MG TAB PO SCH ×2 (08:59→21:12)
[2016-07-23] MEDS: SERTRALINE HCL 50 MG TAB PO SCH (09:00)
[2016-07-23] MEDS: CLOPIDOGREL 75 MG TAB PO SCH (09:00)
[2016-07-23] MEDS: INSULIN DETEMIR 100 UNITS/ML VIAL SQ SCH ×2 (09:01→21:12)
--- NOTE | 2016-07-23 09:35 | HHI.PR ---
Subjective Remarks Patient reports that she is feeling better. Currently stable on nasal cannula. No chest pain. Breathing is at baseline. She complains of some chronic pain of the right leg. Objective Vitals Vital Signs Date Time Temp Pulse Resp B/P Pulse Ox O2 Delivery O2 Flow Rate FiO2 07/23/16 08:45 95 Nasal Cannula 2.00 07/23/16 07:13 100 35 07/23/16 06:00 84 07/23/16 05:49 92 35 07/23/16 04:01 98.1 85 19 118/67 90 07/23/16 04:00 85 07/23/16 03:42 98 Nasal Cannula 2.00 07/23/16 02:00 82 07/23/16 01:00 112/59 07/23/16 00:31 99 35 07/23/16 00:00 97.8 90 14 167/81 94 07/23/16 00:00 90 07/22/16 22:00 120 07/22/16 20:36 97 Nasal Cannula 2.00 07/22/16 20:00 101 07/22/16 20:00 98.0 101 20 107/82 90 07/22/16 16:00 97.5 106 16 122/79 94 07/22/16 12:00 98.0 78 16 120/61 95 I/O 07/22/16 07/22/16 07/22/16 07/23/16 07/23/16 07/23/16 07:00 15:00 23:00 07:00 15:00 23:00 Intake Total 275 ml 1250 ml 378 ml 124 ml Output Total 900 ml 950 ml 1251 ml 1450 ml Balance -625 ml 300 ml -873 ml -1326 ml Intake Oral 600 ml IV Total 275 ml 650 ml 378 ml 124 ml Output Urine Total 900 ml 950 ml 1250 ml 1450 ml Stool Total 0 ml 0 ml 1 ml Result Diagram: 07/23/16 0406 07/23/16 0456 Imaging Last Impressions Chest X-Ray 07/23/16 0600 Signed Impressions: Service Date/Time: Saturday, July 23, 2016 04:53 - CONCLUSION: Bilateral areas of consolidation or atelectasis being worse on the left. Chito Church MD Objective Remarks GENERAL: Morbidly obese female in no apparent distress. CARDIOVASCULAR: Normal rate and regular rhythm without murmurs, gallops, or rubs. RESPIRATORY: Poor air movement. Markedly diminished breath sounds at the bases bilaterally. No wheezing or rhonchi. GASTROINTESTINAL: Abdomen soft, non-tender, non-distended. Normal active bowel sounds MUSCULOSKELETAL: Extremities without cyanosis, or edema. Right lower leg has a history of significant reconstructive surgery after trauma. Small but no edema. Left lower extremity with no edema. NEURO: Alert & Oriented. Normal speech PSYCH: Appropriate mood and affect. Date of Insertion: Jul 17, 2016 A/P Assessment and Plan 65-year-old female with oxygen dependent COPD, on a PET night, morbid obesity with possible obesity hypoventilation syndrome admitted in acute hypoxic and hypercarbic respiratory failure. The patient was extubated on 07/21/16. She has improved clinically and has been transferred to the hospitalist service. Acute hypoxic and Hypercarbic respiratory failure COPD Exacerbation Possible Health Care Associated Pneumonia Obstructive Sleep Apnea Possible Obesity Hypoventilation Syndrome --Continue with oxygen keep sat >90%. --Solumedrol 40mg IV q12h, Nebs q4h and q2h prn --NIPPV PRN for resp distress - Appreciate pulmonology following. BiPAP at night. - Continue IV antibiotics for possible healthcare associated pneumonia Hypertension Congestive Heart Failure with Preserved EF --On Lopressor 25mg Q12. Monitor HR and BP keep MAP>65mmHg. --Continue with Plavix, Lipitor --Continue Lasix 20 mg twice a day Diabetes --SSI, medium scale, q6h, Levemir 20 uQ12 Chronic pain: Resume Oxycodone. Prophylaxis: DVT Prophylaxis: --SCDs --Lovenox 40mg SQ qday GI Prophylaxis: --Protonix 40mg iv q24h. Discharge Planning Stable for transfer to floor. Elizabeth Witt MD Jul 23, 2016 09:35
[2016-07-23] MEDS ORDERED: ALPRAZolam 0.5 MG TAB PO PRN (09:45)
--- NOTE | 2016-07-23 19:40 | HHI.PR ---
Subjective Remarks Awake and eating lunch. On N/C at 3 L. using Bipap at HS. Output was good. Objective Vital Signs Date Time Temp Pulse Resp B/P Pulse Ox O2 Delivery O2 Flow Rate FiO2 07/23/16 16:46 96 Nasal Cannula 3.00 07/23/16 15:30 98.2 98 16 156/98 94 07/23/16 14:00 104 07/23/16 12:00 97.9 97 19 99/58 92 07/23/16 12:00 97 07/23/16 10:00 106 07/23/16 08:45 95 Nasal Cannula 2.00 07/23/16 08:00 97.5 77 27 105/67 97 07/23/16 08:00 77 07/23/16 07:13 100 35 07/23/16 06:00 84 07/23/16 05:49 92 35 07/23/16 04:01 98.1 85 19 118/67 90 07/23/16 04:00 85 07/23/16 03:42 98 Nasal Cannula 2.00 07/23/16 02:00 82 07/23/16 01:00 112/59 07/23/16 00:31 99 35 07/23/16 00:00 97.8 90 14 167/81 94 07/23/16 00:00 90 07/22/16 22:00 120 07/22/16 20:36 97 Nasal Cannula 2.00 07/22/16 20:00 101 07/22/16 20:00 98.0 101 20 107/82 90 I/O 07/22/16 07/22/16 07/22/16 07/23/16 07/23/16 07/23/16 07:00 15:00 23:00 07:00 15:00 23:00 Intake Total 275 ml 1250 ml 378 ml 124 ml 524 ml Output Total 900 ml 950 ml 1251 ml 1450 ml 575 ml Balance -625 ml 300 ml -873 ml -1326 ml -51 ml Intake Oral 600 ml 300 ml IV Total 275 ml 650 ml 378 ml 124 ml 224 ml Output Urine Total 900 ml 950 ml 1250 ml 1450 ml 575 ml Stool Total 0 ml 0 ml 1 ml # Bowel Movements 1 Result Diagram: 07/23/16 0406 07/23/16 0456 Objective Remarks GENERAL: This very obese middle-aged -[place] female is sitting up in bed. There is no pallor or cyanosis. No icterus. She has 1+ leg edema. HEENT: Head normocephalic. Pupils are reactive and equal. Tongue is moist. Throat is clear. NECK: Supple with mild venous distension. Trachea midline. No thyroid enlargement. CHEST: Equal movements with distant breath sounds and occasional scattered wheezes in the upper chest.Occ Crackles. HEART: Heart sounds are regular, S1 and S2, no murmur. ABDOMEN: Soft, protuberant. No masses. EXTREMITIES: Venous stasis dermatitis and mild edema. Peripheral pulses are not well felt. The patient does move her extremities sluggishly. NEUROLOGIC: 1+ reflexes. Cranial nerves grossly intact. RECTAL: Deferred. Assessment and Plan Assessment and Plan IMPRESSION 1. Hypercapnic respiratory failure, resolved. 2. Obstructive sleep apnea syndrome. 3. Congestive heart failure, compensated. 4. Hypertension. 5. Rheumatoid arthritis. 6. Hyperglycemia. 7. Exogenous obesity. 8. Chronic obstructive pulmonary disease. Plan : 1. Continue O2 at 3 L. 2. Bipap at HS 12/5 , FIO2 at 30 %. 3. Solumedrol 40 mg IV bid. 4. Cont Antibiotics Cefipime and Zithromax 5. Nebs qid , duoneb. 6. BMP in am. 7. PFT this week. Sleep test as OP. Yuly Finnegan MD Jul 23, 2016 19:40
[2016-07-23] MEDS: ATORVASTATIN 40 MG TAB PO SCH (21:13)
[2016-07-23] MEDS: ENOXAPARIN SODIUM 40 MG/0.4 ML SYRINGE SQ SCH (23:56)
[2016-07-23] MEDS: AZITHROMYCIN INJ 500 MG in SODIUM CHLOR 0.9% 250 ML INJ 250 ML IV SCH (23:57)
[2016-07-24] VITALS (7 sets, daily range): BP systolic 139–156; BP diastolic 65–90; PULSE 74–82; RESP 18–20; TEMP 97.7–98.9; O2SAT 94–99
[2016-07-24] MEDS: RESP: ALBUTEROL 2.5 MG/IPRATROPIUM 0.5 MG NEB (SCH) INH ×4 (03:56→16:22)
[2016-07-24] MEDS: CHLORHEXIDINE GLUCONATE 2 % 1 PACK (2 CLOTHS) TOP SCH (04:00)
[2016-07-24] MEDS: INSULIN NovoLIN REGULAR SUPPLEMENTAL SCALE SQ SCH ×2 (06:00→13:00)
[2016-07-24] MEDS: CEFEPIME INJ 1,000 MG in SODIUM CHLORIDE 0.9% INJ 100 ML IV SCH ×2 (06:12→13:00)
[2016-07-24 07:31] LABS: HEMATOCRIT 35.8 % (35.0-46.0); MEAN CELL VOLUME 76.3 FL (80.0-100.0); MEAN CORPUSCULAR HEMOGLOBIN 23.1 PG (27.0-34.0); MEAN CORPUSCULAR HGB CONC 30.3 % (32.0-36.0); PLATELET COUNT 272 TH/MM3 (150-450); RED BLOOD COUNT 4.69 MIL/MM3 (4.00-5.30); RED CELL DISTRIBUTION WIDTH 15.9 % (11.6-17.2)
[2016-07-24 07:56] LABS: BICARBONATE 33.6 MEQ/L (21.0-32.0); POTASSIUM 4.5 MEQ/L (3.5-5.1)
[2016-07-24] MEDS: CHLORHEXIDINE 0.12% (ORAL KIT) 15 ML CUP MT SCH (08:00)
[2016-07-24] MEDS: SERTRALINE HCL 50 MG TAB PO SCH (08:42)
[2016-07-24] MEDS: FUROSEMIDE 20 MG TAB PO SCH (08:42)
[2016-07-24] MEDS: METOPROLOL TARTRATE 25 MG TAB PO SCH (08:42)
[2016-07-24] MEDS: DOCUSATE SODIUM 50 MG/SENNA 8.6 MG TAB PO SCH (08:42)
[2016-07-24] MEDS: CLOPIDOGREL 75 MG TAB PO SCH (08:42)
[2016-07-24] MEDS: POLYETHYLENE GLYCOL 17 GM PKG PO SCH (08:42)
[2016-07-24] MEDS: PANTOPRAZOLE SODIUM 40 MG VIAL IV SCH (08:43)
[2016-07-24] MEDS: SODIUM CHLORIDE 0.9% FLUSH 5 ML FLUSH IV FLUSH SCH (08:43)
[2016-07-24] MEDS: methylPREDNISolone SOD SUCC 125 MG/2 ML VIAL IV PUSH SCH (08:43)
[2016-07-24] MEDS: INSULIN DETEMIR 100 UNITS/ML VIAL SQ SCH (08:44)
[2016-07-24] MEDS ORDERED: ALPR.5 PO (13:11)
[2016-07-24] MEDS ORDERED: CEFU1TAB20 PO (13:11)
[2016-07-24] MEDS ORDERED: OXYC1CAP PO (13:11)
--- NOTE | 2016-07-24 13:14 | HHI.DS ---
Discharge Summary Admission Date Jul 17, 2016 at 22:01 Discharge Date: Jul 24, 2016 Admitting Diagnosis respiratory failure, hypercabia,morbid obesity (1) AQcute hypercapnic and hypoxic respiratory failure on BiPAP (2) COPD (chronic obstructive pulmonary disease) ICD Code: J44.9 (3) Encephalopathy ICD Code: G93.40 (4) Healthcare-associated pneumonia ICD Code: J18.9 Procedures Intubation and extubation. Brief History - From Admission History of present illness from admitting physician: 65yF with h/o o2 dependent COPD, morbid obesity, ARSEN and recent admission in june for hypercarbic respiratory failure who presents to the emergency department with complaints of weakness and fatigue. for the ER, she was quite somnolent and unable to provide much history. For me, she is nearly unarousable and can provide no history at all. She is on BiPAP on my interview. She is quite hypercarbic with pco2 79, pH 7.2. CBC/BMP: 07/24/16 0641 07/24/16 0641 Significant Findings Laboratory Tests Test 07/22/16 07/23/16 07/23/16 07/23/16 05:08 04:06 04:56 10:06 Hemoglobin 10.9 GM/DL 11.2 GM/DL (11.6-15.3) (11.6-15.3) Mean Corpuscular Volume 75.0 FL 76.2 FL (80.0-100.0) (80.0-100.0) Mean Corpuscular Hemoglobin 23.1 PG 23.2 PG (27.0-34.0) (27.0-34.0) Mean Corpuscular Hemoglobin 30.9 % 30.4 % Concent (32.0-36.0) (32.0-36.0) Chloride Level 96 MEQ/L 94 MEQ/L (98-107) (98-107) Carbon Dioxide Level 36.6 MEQ/L 33.9 MEQ/L (21.0-32.0) (21.0-32.0) Anion Gap 4 MEQ/L (5-15) Blood Urea Nitrogen 22 MG/DL (7-18) 20 MG/DL (7-18) Random Glucose 213 MG/DL 232 MG/DL (74-106) (74-106) Calcium Level 8.4 MG/DL (8.5-10.1) Neutrophils (%) (Auto) 76.4 % (16.0-70.0) Monocytes (%) (Auto) 8.3 % (0.0-8.0) Neutrophils % (Manual) 77 % (16-70) Monocytes % 11 % (0-8) Myelocytes 1 % (0-0) Vancomycin Level Trough 14.7 MCG/ML (5.0-10.0) Test 07/24/16 06:41 Hemoglobin 10.9 GM/DL (11.6-15.3) Mean Corpuscular Volume 76.3 FL (80.0-100.0) Mean Corpuscular Hemoglobin 23.1 PG (27.0-34.0) Mean Corpuscular Hemoglobin 30.3 % Concent (32.0-36.0) Carbon Dioxide Level 33.6 MEQ/L (21.0-32.0) Anion Gap 4 MEQ/L (5-15) Blood Urea Nitrogen 25 MG/DL (7-18) Random Glucose 241 MG/DL (74-106) Calcium Level 8.4 MG/DL (8.5-10.1) Imaging Last Impressions Chest X-Ray 07/23/16 0600 Signed Impressions: Service Date/Time: Saturday, July 23, 2016 04:53 - CONCLUSION: Bilateral areas of consolidation or atelectasis being worse on the left. Chito Church MD PE at Discharge GENERAL: Morbidly obese female in no apparent distress. CARDIOVASCULAR: Normal rate and regular rhythm without murmurs, gallops, or rubs. RESPIRATORY: Poor air movement. Markedly diminished breath sounds at the bases bilaterally. No wheezing or rhonchi. GASTROINTESTINAL: Abdomen soft, non-tender, non-distended. Normal active bowel sounds MUSCULOSKELETAL: Extremities without cyanosis, or edema. Right lower leg has a history of significant reconstructive surgery after trauma. Small but no edema. Left lower extremity with no edema. NEURO: Alert & Oriented. Normal speech PSYCH: Appropriate mood and affect. Pt update on day of discharge Patient reports that she is feeling much better. Inquired about when she can return home. Breathing is close to baseline. Stable on nasal cannula. She use CPAP at night. Hospital Course 65-year-old female with oxygen dependent COPD, on a PET night, morbid obesity with possible obesity hypoventilation syndrome admitted in acute hypoxic and hypercarbic respiratory failure. The patient was extubated on 07/21/16. She has improved clinically and is stable for discharge. I discussed with pulmonology, Dr. Kamran Moreno. Evaluation and treatment course detailed below: Acute hypoxic and Hypercarbic respiratory failure COPD Exacerbation Possible Health Care Associated Pneumonia Obstructive Sleep Apnea Possible Obesity Hypoventilation Syndrome --Patient was admitted and intubated. She was treated with IV Solu-Medrol, Ventolin or bundle and breathing treatments. She was subsequently extubated and doing well on BiPAP at night. The patient was treated for possible healthcare associated pneumonia with cefepime and azithromycin. She was followed by pulmonology. She significantly improved close to her baseline. [facility]. She is discharged on cefuroxime and a prednisone taper. Patient is advised to use CPAP at night. She is also advised to follow up outpatient with pulmonology for sleep study. She is also counseled on weight loss. Hypertension Congestive Heart Failure with Preserved EF --On Lopressor 25mg Q12. --Continue with Plavix, Lipitor --Continue Lasix 20 mg twice a day Diabetes --Resume home dose insulin. Chronic pain: Continue Oxycodone. Pt Condition on Discharge: Good Discharge Disposition: Discharge to SNF Discharge Time: > 30 minutes Discharge Instructions DIET: Follow Instructions for: Heart Healthy Diet Activities you can perform: Regular-No Restrictions, See Additionl Instruction Other Activity Instructions: Per PT instructions. Follow up Referrals: Pulmonology - 1 Week with Yuly Finnegan MD New Medications: Cefuroxime (Cefuroxime) 500 Mg Tab 500 MG PO BID Infection #20 Ref 0 TAB Prednisone (Prednisone) 20 Mg Tab 20 MG PO DIRECTED Take 60 MG daily x 4 days, then 40 MG x 4 days, then 20 MG daily x 4 days. #24 Ref 0 TAB Continued Medications: Acetaminophen (Tylenol Extra Strength) 500 Mg Tab 1000 MG PO TID PRN PAIN 1-10 AND/OR FEVER >101F Ref 0 TAB Albuterol Neb (Albuterol Neb) 2.5 Mg/3 Ml Neb 2.5 MG NEB Q2HR PRN SHORTNESS OF BREATH #1 Ref 0 NEBULE Alprazolam (Xanax) 0.5 Mg Tab 0.5 MG PO BID PRN ANXIETY #20 Ref 0 TAB (This prescription has been renewed) Ascorbic Acid (Vitamin C) 500 Mg Tab 500 MG PO BID Nutritional Supplement Ref [address] (Aspirin Adult Low Strength) 81 Mg Tabdr 81 MG PO DAILY TAB Atorvastatin (Atorvastatin) 40 Mg Tab 40 MG PO HS Cholesterol Management #30 Ref 0 TAB Bisacodyl Supp (Dulcolax Supp) 10 Mg Supp 10 MG IN DIRECTED Give if no results 1 day after Milk of Mag PRN CONSTIPATION #12 Ref 0 SUPP Clopidogrel (Plavix) 75 Mg Tab 75 MG PO DAILY Blood Clot Prevention #30 Ref 0 TAB Ferrous Sulfate (Ferrous Sulfate) 325 Mg Tab 325 MG PO BID Nutritional Supplement #30 Ref 0 TAB Folic Acid (Folate) 1 Mg Tab 1 MG PO DAILY Nutritional Supplement Ref 0 TAB Furosemide (Lasix) 20 Mg Tab 20 MG PO BID #60 Ref 0 TAB Insulin Aspart Inj (Novolog Inj) 100 Unit/Ml Inj 2-12 UNITS SQ ACHS Sliding Scale: if 0-150=0 units, 151-200=2 units, 201-250=4 units, 251-300=8 units, 351-400=10 units, >400=12 units & call MD Insulin Detemir Inj (Levemir Inj) 1,000 unit/ 10 ML Vial 17 UNITS SQ HS Do not mix with any other Insulin. Blood Sugar Management Ref 0 VIAL Lactic Acid (Ammonium Lactate) (Lac-Hydrin) 12% Lotn 1 APPLIC TOPICAL DAILY Apply to both lower extremities every evening shift #225 Ref 0 ML Losartan (Losartan) 50 Mg Tab 50 MG PO BID Blood Pressure Management #30 Ref 0 TAB Magnesium Citrate Liq (Citroma Liq) 300 Ml Liq 300 ML PO DIRECTED Give if no results 1 day after fleet enema PRN CONSTIPATION #1 Ref 0 BOTTLE Magnesium Hydroxide Liq (Milk of Magnesia Liq) 400 Mg/5 Ml Susp 30 ML PO DIRECTED PRN IF NO BM IN 3 DAYS #1 Ref 0 BOTTLE Metoprolol Tartrate (Metoprolol Tartrate) 25 Mg Tab 25 MG PO BID #60 Ref 0 TAB Multiple Vitamins W/ Minerals (Multi-Vitamin/Minerals) 1 Tab Tab 1 TAB PO DAILY Nutritional Supplement Oxycodone (Oxycodone) 5 Mg Cap 5 MG PO Q4H PRN SEVERE PAIN #20 Ref 0 CAP (This prescription has been renewed) Pantoprazole Liq (Protonix Liq) 40 Mg Pkt 40 MG PO DAILY Reflux #30 Ref 0 PKT Polyethylene Glycol 3350 Powder (Miralax Powder) 17 Gm Powd 17 GM PO DAILY Mix and dissolve one measuring capful (17 grams) in water,juice, soda, coffee or tea Constipation #1 Ref 0 BOTTLE Sennosides (Senna) 8.6 Mg Cap 17.2 MG PO BID Constipation Ref 0 CAP Sertraline (Sertraline) 50 Mg Tab 50 MG PO DAILY #30 Ref 0 TAB Silver Sulfadiazine Topical (Silvadene Topical) 1 % Cream 1 APPLIC TOPICAL DAILY Apply to rt lower leg after nss wash then cover w/dsd every evening shift Wound Management #50 Ref 0 GM Sitagliptin (Januvia) 50 Mg Tab 50 MG PO DAILY Blood Sugar Management #30 Ref 0 TAB Sodium Phosphates (Enema Utjib-Ya-Hxj) 1 Valentina Valentina 112 ML IN DIRECTED Give if no results 1 day after Dulcolax Supp PRN CONSTIPATION Elizabeth Witt MD Jul 24, 2016 13:14
[2016-07-24] MEDS ORDERED: PRED20 PO (13:16)
--- NOTE | 2016-08-23 10:50 | RSPPFT ---
DATE OF PROCEDURE: 07/24/16 COMMENTS: Spirometry demonstrates an FEV1 of 0.5 at 24% of predicted, FVC of 0.8 at 23%, FEF 25-75 at 28%. Post-bronchodilator study demonstrated no significant changes. Lung volumes were not completed. Flow volume loops suggest a restrictive defect. IMPRESSION: 1. Severe restrictive disease. 2. No significant change following use of bronchodilator.
== END 2016-07-24 17:39 | DRG 208 ==
LOC: NEPE 16:22 → NEDA 22:01 → HIME 23:05 → N04B 07-23 15:10
PROVIDERS: ADMIT Family Medicine; ATTEND Family Medicine
PROC: 5A09357 Assistance with Respiratory Ventilation, Less than 24 Consecutive Hours, Continuous Positive Airway Pressure (ICD-10-PCS; 2016-07-17)
PROC: 5A1945Z Respiratory Ventilation, 24-96 Consecutive Hours (ICD-10-PCS; principal; 2016-07-18)
PROC: 03HY32Z Insertion of Monitoring Device into Upper Artery, Percutaneous Approach (ICD-10-PCS; 2016-07-18)
PROC: 0BH17EZ Insertion of Endotracheal Airway into Trachea, Via Natural or Artificial Opening (ICD-10-PCS; 2016-07-18)
DX: J96.02 Acute respiratory failure with hypercapnia (principal); G93.41 Metabolic encephalopathy; J18.9 Pneumonia, unspecified organism; I11.0 Hypertensive heart disease with heart failure; J44.0 Chronic obstructive pulmonary disease with (acute) lower respiratory infection; I50.30 Unspecified diastolic (congestive) heart failure; Z99.81 Dependence on supplemental oxygen; E66.2 Morbid (severe) obesity with alveolar hypoventilation; Z68.42 Body mass index [BMI] 45.0-49.9, adult; J44.1 Chronic obstructive pulmonary disease with (acute) exacerbation; J96.01 Acute respiratory failure with hypoxia; D64.9 Anemia, unspecified; E11.65 Type 2 diabetes mellitus with hyperglycemia; E78.5 Hyperlipidemia, unspecified; M06.9 Rheumatoid arthritis, unspecified; I25.10 Atherosclerotic heart disease of native coronary artery without angina pectoris; I25.2 Old myocardial infarction; I87.8 Other specified disorders of veins; I87.2 Venous insufficiency (chronic) (peripheral); K21.9 Gastro-esophageal reflux disease without esophagitis; H40.9 Unspecified glaucoma; F41.8 Other specified anxiety disorders; Y95 Nosocomial condition; Z72.0 Tobacco use; Z86.14 Personal history of Methicillin resistant Staphylococcus aureus infection; Z79.4 Long term (current) use of insulin
CPT/HCPCS: 31500; 36556; 36600; 71010; 80048; 80053; 80202; 81001; 82805; 82948; 83735; 83880; 84100; 84484; 85007; 85025; 85027; 85379; 85610; 85730; 87040; 87070; 87205; 87449; 87641; 93005; 94002; 94003; 94060; 94150; 94640; 94664; 94667; 96374; C9113; J0360; J0456; J0692; J1170; J1650; J2930; J3010; J3370; J7040; J7050

== ENCOUNTER 2016-08-09 10:19 | Inpatient (IN) | payer MEDICAID ==
[~2016-08-09] VITALS: Ht 157.5 cm; Wt 134.0 kg
[2016-08-09] VITALS (13 sets, daily range): BP systolic 118–168; BP diastolic 58–85; PULSE 74–93; RESP 16–25; TEMP 98.5–99.3; O2SAT 84–100
[~2016-08-09 10:19] MED LIST changes: +CEFU1TAB20 PO; +PRED20 PO; -PRED5PAK2 PO
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
[2016-08-09 11:00] LABS: MEAN CORPUSCULAR HGB CONC 28.6 % (32.0-36.0)
--- NOTE | 2016-08-09 11:43 | RADRPT ---
EXAM DATE/TIME: 08/09/2016 11:11 [facility] COMPARISON: No previous studies available for comparison. INDICATIONS : Patient is short of breath since this morning. MEDICAL HISTORY : Congestive heart failure. SURGICAL HISTORY : None. ENCOUNTER: Initial ACUITY: 1 day PAIN SCORE: 0/10 LOCATION: chest FINDINGS: Basilar consolidation and small effusions. Mild cardiomegaly unchanged. No pneumothorax. CONCLUSION: Slight failure. Chito Arellano MD on August 09, 2016 at 11:41 Board Certified Radiologist. This report was verified electronically.
[2016-08-09 12:17] LABS: BLOOD GAS BASE EXCESS 9.2 mmol/L (-2-2); BLOOD GAS CARBOXYHEMOGLOBIN 1.3 % (0-4); BLOOD GAS HCO3 37 mmol/L (22-26); BLOOD GAS METHEMOGLOBIN 0.8 % (0-2); BLOOD GAS O2 HGB SATURATION 97 % (90-100); BLOOD GAS OXYGEN CONTENT 15.6 Vol % (12.0-20.0); BLOOD GAS PCO2 89 mmHg (38-42); BLOOD GAS PO2 152 mmHG (61-120); BLOOD GAS TOTAL HGB 11.2 G/DL (12.0-16.0); TEMP CORR TO 98.6
[2016-08-09 12:18] LABS: CRITICAL VALUE YES; DRAW SITE RT RADIAL; FIO2 50 %; NUMBER OF ARTERIAL PUNCTURES 1; OXYGEN DEVICE BiPAP; STAT YES; ULNAR PULSE PRESENT; VENT SETTINGS IPAP15/EPAP5
[2016-08-09 12:18] LABS: AUTOMATED NEUTROPHIL # 7.8 TH/MM3 (1.8-7.7); BASOPHIL # 0.1 TH/MM3 (0-0.2); BASOPHIL % 0.6 % (0.0-2.0); EOSINOPHIL % 0.1 % (0.0-4.0); HEMATOCRIT 39.7 % (35.0-46.0); LYMPH % 8.3 % (9.0-44.0); LYMPHOCYTE # 0.8 TH/MM3 (1.0-4.8); MEAN CELL VOLUME 80.2 FL (80.0-100.0); MONO % 5.8 % (0.0-8.0); NEUT % 85.2 % (16.0-70.0); PLATELET COUNT 175 TH/MM3 (150-450); RED BLOOD COUNT 4.95 MIL/MM3 (4.00-5.30); RED CELL DISTRIBUTION WIDTH 16.5 % (11.6-17.2); WHITE BLOOD COUNT 9.2 TH/MM3 (4.0-11.0)
[2016-08-09 12:19] LABS: HEMO FLAGS AUTO DIFF
[2016-08-09 12:25] LABS: APTT (PATIENT) 22.6 SEC (24.3-30.1); INTERNATIONAL NORMALIZED RATIO 0.9 RATIO; PROTHROMBIN TIME - PATIENT 9.8 SEC (9.8-11.6)
[2016-08-09 12:36] LABS: ANION GAP 3 MEQ/L (5-15); AST (GOT) 41 U/L (15-37); BICARBONATE 33.8 MEQ/L (21.0-32.0); BLOOD UREA NITROGEN 26 MG/DL (7-18); CHLORIDE 98 MEQ/L (98-107); GLOMERULAR FILTRATION RATE 68 ML/MIN (>89); SODIUM (NA) 135 MEQ/L (136-145)
[2016-08-09 12:39] LABS: ALKALINE PHOSPHATASE 71 U/L (45-117); ALT (GPT) 25 U/L (10-53); CREATINE KINASE 116 U/L (26-192); POTASSIUM 8.2 MEQ/L (3.5-5.1); TOTAL BILIRUBIN ADULT 0.6 MG/DL (0.2-1.0)
[2016-08-09] MEDS ORDERED: FUROSEMIDE 40 MG/4 ML VIAL IV PUSH ONE (12:45)
[2016-08-09 13:05] LABS: SCAN/DIFF AUTO DIFF CONFIRMED
[2016-08-09 13:09] LABS: BLOOD, URINE NEG (NEG); GLUCOSE,URINE TRACE mg/dL (NEG); KETONE, URINE NEG (NEG); NITRITE,URINE NEG (NEG); SQUAMOUS EPITHELIAL CELL URINE <1 /hpf (0-5); URINE COLOR YELLOW (YELLW/STRAW)
[2016-08-09 13:10] LABS: COMMENT (UR) CATH-CULT NOT IND; CULTURE IF INDICATED CATH CULTURE NOT IND
--- NOTE | 2016-08-09 13:26 | RADRPT ---
EXAM DATE/TIME: 08/09/2016 13:05 [facility] COMPARISON: CT BRAIN W/O CONTRAST, June 03, 2016, 12:42. INDICATIONS : Altered mental status; not arousable today. RADIATION DOSE: 56.35 CTDIvol (mGy) MEDICAL HISTORY : Cardiovascular disease. Hypertension. Diabetes mellitus type 2. SURGICAL HISTORY : Hysterectomy. ENCOUNTER: Initial ACUITY: 1 day PAIN SCALE: Non-responsive LOCATION: cranial TECHNIQUE: Multiple contiguous axial images were obtained of the head. Using automated exposure control and adj ustment of the mA and/or kV according to patient size, radiation dose was kept as low as reasonably a chievable to obtain optimal diagnostic quality images. FINDINGS: CEREBRUM: The ventricles are normal for age. No evidence of midline shift, mass lesion, hemorrhage or acute in farction. No extra-axial fluid collections are seen. Chronic, small infarct right posterior parietal /occipital lobe again noted. POSTERIOR FOSSA: The cerebellum and brainstem are intact. The 4th ventricle is midline. The cerebellopontine angle i s unremarkable. EXTRACRANIAL: Fluid in both mastoid air cells, new on the right, increased on the left. SKULL: The calvaria is intact. No evidence of skull fracture. CONCLUSION: 1. No acute intracranial abnormality. 2. Remote right occipital/parietal lobe infarct. 3. Apparent bilateral mastoiditis in the proper clinical setting. Chito Arellano MD on August 09, 2016 at 13:22 Board Certified Radiologist. This report was verified electronically.
[2016-08-09] MEDS ORDERED: DOXY100C PO (14:25)
[2016-08-09] MEDS ORDERED: FLUC150T PO (14:25)
[2016-08-09] MEDS ORDERED: ZINC220C3 PO (14:45)
[2016-08-09] MEDS ORDERED: SILV1CRE20 TOPICAL (14:45)
[2016-08-09] MEDS ORDERED: OXYC-392 PO (14:45)
[2016-08-09] MEDS ORDERED: PANT40TA3 PO (14:45)
[2016-08-09] MEDS ORDERED: RESP: ALBUTEROL 2.5 MG/IPRATROPIUM 0.5 MG NEB (PRN) INH (15:00)
[2016-08-09] MEDS ORDERED: DEXTROSE 50% IN WATER 50 ML VIAL(D50) IV PUSH PRN (15:00)
[2016-08-09] MEDS ORDERED: MISCELLANEOUS NURSING INFORMATION XX SCH (15:00)
[2016-08-09] MEDS ORDERED: CHLORHEXIDINE GLUCONATE 2 % 1 PACK (2 CLOTHS) TOP PRN (15:00)
[2016-08-09] MEDS ORDERED: GLUCAGON 1 MG/ML VIAL OTHER PRN (15:00)
[2016-08-09] MEDS ORDERED: INSULIN HUMAN REGULAR 1,000 UNITS/10 ML VIAL IV PUSH ONE (15:15)
[2016-08-09] MEDS ORDERED: SODIUM POLYSTYRENE SULFONATE SUSP 15 GM/60 ML CUP PO ONE (15:15)
[2016-08-09] MEDS ORDERED: DEXTROSE 50% IN WATER 50 ML VIAL(D50) IV PUSH ONE (15:15)
--- NOTE | 2016-08-09 15:38 | PD ---
HPI Chief Complaint: Altered Mental Status Time Seen by Provider: 11:55 Travel History International Travel<30 days: No Contact w/Intl Traveler<30days: No Traveled to known affect area: No History of Present Illness HPI Case initially seen by PA for triage, coming in for altered mental status, lethargy at her retirement facility, apparently was tachypnea, initial evaluation, and was put on BiPAP. In the ER, patient is able to answer questions, but is fairly difficult to arouse. Patient disoriented. She denies complaints. Modifying Factors: None Associated Signs & Symptoms: Lethargy, altered mental status, respiratory distress Risk Factors: CHF history, multiple medical issues, retirement PFSH Past Medical History Arthritis: Yes (RA) Asthma: No Autoimmune Disease: No Blood Disorders: No Anxiety: Yes Depression: Yes Heart Rhythm Problems: No Cancer: No Cardiac Catheterization: Yes (JUNE 2009) Cardiovascular Problems: Yes High Cholesterol: Yes Chemotherapy: No Chest Pain: Yes Congestive Heart Failure: Yes COPD: No Cerebrovascular Accident: No Coronary Artery Disease: Yes Diabetes: Yes Patient Takes Glucophage: Yes Diminished Hearing: No Diverticulitis: Yes Endocrine: Yes Gastrointestinal Disorders: Yes GERD: Yes Glaucoma: Yes Genitourinary: No Headaches: No Hepatitis: No Hiatal Hernia: No Heparin Induced Thrombocytopen: No Hypertension: Yes Immune Disorder: Yes Implanted Vascular Access Dvce: No Kidney Stones: No Medical other: Yes (ARTHRITIS) Musculoskeletal: Yes Neurologic: No Psychiatric: Yes Reproductive: No Respiratory: Yes Migraines: No Myocardial Infarction: Yes Pneumonia: Yes Radiation Therapy: No Renal Failure: No Seizures: No Sickle Cell Disease: No Sleep Apnea: Yes Thyroid Disease: No Ulcer: No Menopausal: Yes Tubal Ligation: Yes Past Surgical History Abdominal Surgery: Yes AICD: No Appendectomy: No Arteriovenous Shunt: No Cardiac Surgery: Yes (STENTS RIGHT ILIAC ARTERY) Section: Yes Cholecystectomy: No Coronary Artery Bypass Graft: No Ear Surgery: No Endocrine Surgery: No Eye Surgery: Yes (CATARACTS) Genitourinary Surgery: No Gynecologic Surgery: Yes (PARTIAL HYSTERECTOMY, CSECTION) Hysterectomy: Yes (PARTIAL) Joint Replacement: No Neurologic Surgery: No Oral Surgery: No Pacemaker: No Thoracic Surgery: No Other Surgery: Yes (CYST REMOVED RT BREAST) Social History Alcohol Use: No Tobacco Use: No Substance Use: No Allergies-Medications (Allergen,Severity, Reaction): Coded Allergies: *MDRO Multi-Drug Resistant Organism (Unverified Adverse Reaction, Unknown , MRSA, 08/09/16) MRSA PCR positive - 06/28/2015 & 06/03/16 Reported Meds & Prescriptions Reported Meds & Active Scripts Active Xanax (Alprazolam) 0.5 Mg Tab 0.5 Mg PO BID PRN Reported Zinc Sulfate 220 Mg Cap 220 Mg PO DAILY Silvadene Topical (Silver Sulfadiazine) 1 % Cream 1 Applic TOPICAL HS TO L BUTTOCK Oxycodone (Oxycodone HCl) 5 Mg Tab 5 Mg PO Q4H PRN Pantoprazole (Pantoprazole Sodium) 40 Mg Tab 40 Mg PO DAILY Doxycycline Hyclate 100 Mg Cap 100 Mg PO BID Fluconazole 150 Mg Tab 150 Mg PO WEEKLY ON WEDNESDAYS Levemir Inj (Insulin Detemir) 1,000 unit/ 10 ML Vial 17 Units SQ HS Do not mix with any other Insulin. Ferrous Sulfate 325 Mg Tab 325 Mg PO BID Novolog Inj (Insulin Aspart) 100 Unit/Ml Inj 3-15 Units SQ ACHS Sliding Scale: if 0-150=0 units, 151-200=3 units, 201-250=5 units, 251-300=8 units, 301-350 = 10 units, 351-400=12 units, >400=15 units & call Vitamin C (Ascorbic Acid) 500 Mg Tab 500 Mg PO BID Lac-Hydrin (Lactic Acid (Ammonium Lactate)) 12% Lotn 1 Applic TOPICAL DAILY Apply to both lower extremities every evening shift Albuterol Neb (Albuterol Sulfate) 2.5 Mg/3 Ml Neb 2.5 Mg NEB Q2HR PRN Multi-Vitamin/Minerals (Multiple Vitamins W/ Minerals) 1 Tab Tab 1 Tab PO DAILY Tylenol Extra Strength (Acetaminophen) 500 Mg Tab 1,000 Mg PO TID PRN Miralax Powder (Polyethylene Glycol 3350 Powder) 17 Gm Powd 17 Gm PO DAILY Mix and dissolve one measuring capful (17 grams) in water,juice,soda, coffee or tea Dulcolax Supp (Bisacodyl) 10 Mg Supp 10 Mg MI DAILY IN THE MORNING PRN Give if no results 1 day after Milk of Mag Citroma Liq (Magnesium Citrate) 300 Ml Liq 296 Ml PO DAILY IN THE MORNING PRN Give if no results 1 day after fleet enema Milk of Magnesia Liq (Magnesium Hydroxide) 400 Mg/5 Ml Susp 30 Ml PO HS PRN Enema Pqekk-Oy-Jpc (Sodium Phosphates) 1 Valentina Valentina 112 Ml MI DAILY PRN Aspirin Adult Low Strength (Aspirin) 81 Mg Tabdr 81 Mg PO DAILY Atorvastatin (Atorvastatin Calcium) 40 Mg Tab 40 Mg PO HS Sertraline (Sertraline HCl) 50 Mg Tab 50 Mg PO DAILY Folate (Folic Acid) 1 Mg Tab 1 Mg PO DAILY Metoprolol Tartrate 25 Mg Tab 25 Mg PO BID Lasix (Furosemide) 20 Mg Tab 20 Mg PO BID Plavix (Clopidogrel Bisulfate) 75 Mg Tab 75 Mg PO DAILY Senna (Sennosides) 8.6 Mg Cap 17.2 Mg PO BID Losartan (Losartan Potassium) 50 Mg Tab 50 Mg PO BID Januvia (Sitagliptin Phosphate) 50 Mg Tab 50 Mg PO DAILY Silvadene Topical (Silver Sulfadiazine) 1 % Cream 1 Applic TOPICAL EACH SHIFT Apply to left gluteal after nss wash then cover w/dsd every shift for pressure injury. Review of Systems ROS Limitations: Altered Mental Status Physical Exam Narrative GENERAL: Well-developed obese elderly -[place] female in moderate respiratory distress, placed on BiPAP. She is awake a bowl but lethargic and barely able to answer questions before she falls back asleep. SKIN: Warm and dry. HEAD: Atraumatic. Normocephalic. EYES: Pupils equal and round. No scleral icterus. No injection or drainage. ENT: No nasal bleeding or discharge. Mucous membranes pink and moist. NECK: Trachea midline. No masses. CARDIOVASCULAR: Regular rate and rhythm. No murmur appreciated. RESPIRATORY: On BiPAP, tachypnea. Clear to auscultation. Breath sounds equal bilaterally. GASTROINTESTINAL: Abdomen soft, obese, non-tender, nondistended. Hepatic and splenic margins not palpable. MUSCULOSKELETAL: No obvious deformities. No clubbing. No cyanosis. No edema. NEUROLOGICAL: Lethargic. No obvious cranial nerve deficits. Motor grossly within normal limits. Normal speech. PSYCHIATRIC: Disoriented. Data Data Last Documented VS Vital Signs Date Time Temp Pulse Resp B/P Pulse Ox O2 Delivery O2 Flow Rate FiO2 08/09/16 13:30 74 19 129/58 100 BiPAP 40 08/09/16 11:42 98.5 4 Orders Electrocardiogram (08/09/16 10:57) Complete Blood Count With Diff (08/09/16 10:57) Comprehensive Metabolic Panel (08/09/16 10:57) Creatine Kinase (Cpk) (08/09/16 10:57) Prothrombin Time / Inr (Pt) (08/09/16 10:57) Act Partial Throm Time (Ptt) (08/09/16 10:57) Troponin I (08/09/16 10:57) Urinalysis - C+S If Indicated (08/09/16 10:57) Chest, Single Ap (08/09/16 10:57) Ct Brain W/O Iv Contrast(Rout) (08/09/16 10:57) Blood Glucose (08/09/16 10:57) Ecg Monitoring (08/09/16 10:57) Iv Access Insert/Monitor (08/09/16 10:57) Cath For Specimen (08/09/16 10:57) Oximetry (08/09/16 10:57) Oxygen Administration (08/09/16 10:57) Sodium Chloride 0.9% Flush (Ns Flush) (08/09/16 11:00) Resp Bipap / Cpap Non Invas Vt (08/09/16 ) Arterial Blood Gas (Abg) (08/09/16 ) B-Type Natriuretic Peptide (08/09/16 11:56) Vascular Access Team Consult PRN (08/09/16 11:56) Furosemide Inj (Lasix Inj) (08/09/16 12:45) Potassium, Serum (K) (08/09/16 13:31) Vascular Poc Ultrasound (08/09/16 ) Arterial Blood Gas (Abg) (08/09/16 14:25) Admit Order (Ed Use Only) (08/09/16 14:25) Labs Laboratory Tests Test 08/09/16 08/09/16 08/09/16 11:59 12:05 12:50 Blood Gas Puncture Site RT RADIAL Blood Gas Patient Temperature 98.6 Blood Gas HCO3 37 mmol/L Blood Gas Base Excess 9.2 mmol/L Blood Gas Oxygen Saturation 97 % Arterial Blood pH 7.24 Arterial Blood Partial 89 mmHg Pressure CO2 Arterial Blood Partial 152 mmHG Pressure O2 Arterial Blood Oxygen Content 15.6 Vol % Arterial Blood 1.3 % Carboxyhemoglobin Arterial Blood Methemoglobin 0.8 % Blood Gas Hemoglobin 11.2 G/DL Oxygen Delivery Device BiPAP Blood Gas Ventilator Setting IPAP15/[id number] Blood Gas Inspired Oxygen 50 % White Blood Count 9.2 TH/MM3 Red Blood Count 4.95 MIL/MM3 Hemoglobin 11.4 GM/DL Hematocrit 39.7 % Mean Corpuscular Volume 80.2 FL Mean Corpuscular Hemoglobin 23.0 PG Mean Corpuscular Hemoglobin 28.6 % Concent Red Cell Distribution Width 16.5 % Platelet Count 175 TH/MM3 Mean Platelet Volume 9.0 FL Neutrophils (%) (Auto) 85.2 % Lymphocytes (%) (Auto) 8.3 % Monocytes (%) (Auto) 5.8 % Eosinophils (%) (Auto) 0.1 % Basophils (%) (Auto) 0.6 % Neutrophils # (Auto) 7.8 TH/MM3 Lymphocytes # (Auto) 0.8 TH/MM3 Monocytes # (Auto) 0.5 TH/MM3 Eosinophils # (Auto) 0.0 TH/MM3 Basophils # (Auto) 0.1 TH/MM3 CBC Comment AUTO DIFF Differential Comment AUTO DIFF CONFIRMED Prothrombin Time 9.8 SEC Prothromb Time International 0.9 RATIO Ratio Activated Partial 22.6 SEC Thromboplast Time Sodium Level 135 MEQ/L Potassium Level 8.2 MEQ/L 7.1 MEQ/L Chloride Level 98 MEQ/L Carbon Dioxide Level 33.8 MEQ/L Anion Gap 3 MEQ/L Blood Urea Nitrogen 26 MG/DL Creatinine 0.99 MG/DL Estimat Glomerular Filtration 68 ML/MIN Rate Random Glucose 199 MG/DL Calcium Level 8.4 MG/DL Total Bilirubin 0.6 MG/DL Aspartate Amino Transf 41 U/L (AST/SGOT) Alanine Aminotransferase 25 U/L (ALT/SGPT) Alkaline Phosphatase 71 U/L Total Creatine Kinase 116 U/L Troponin I 0.03 NG/ML B-Type Natriuretic Peptide 184 PG/ML Total Protein 7.2 GM/DL Albumin 2.7 GM/DL Urine Color YELLOW Urine Turbidity CLEAR Urine pH 5.0 Urine Specific Baudette 1.013 Urine Protein TRACE mg/dL Urine Glucose (UA) TRACE mg/dL Urine Ketones NEG mg/dL Urine Occult Blood NEG Urine Nitrite NEG Urine Bilirubin NEG Urine Urobilinogen LESS THAN 2.0 MG/DL Urine Leukocyte Esterase NEG Urine RBC 1 /hpf Urine WBC LESS THAN 1 /hpf Urine Squamous Epithelial <1 /hpf Cells Microscopic Urinalysis Comment CATH-CULT NOT IND MDM Medical Decision Making Medical Screen Exam Complete: Yes Emergency Medical Condition: Yes Medical Record Reviewed: Yes Interpretation(s) EKG shows NSR, no ST elevation or depression, and no arrhythmias. No significant T-wave inversions. Laboratory Tests Test 08/09/16 08/09/16 08/09/16 11:59 12:05 12:50 Blood Gas HCO3 37 mmol/L (22-26) Blood Gas Base Excess 9.2 mmol/L (-2-2) Arterial Blood pH 7.24 (7.380-7.420) Arterial Blood Partial 89 mmHg (38-42) Pressure CO2 Arterial Blood Partial 152 mmHG Pressure O2 (61-120) Blood Gas Hemoglobin 11.2 G/DL (12.0-16.0) Hemoglobin 11.4 GM/DL (11.6-15.3) Mean Corpuscular Hemoglobin 23.0 PG (27.0-34.0) Mean Corpuscular Hemoglobin 28.6 % Concent (32.0-36.0) Neutrophils (%) (Auto) 85.2 % (16.0-70.0) Lymphocytes (%) (Auto) 8.3 % (9.0-44.0) Neutrophils # (Auto) 7.8 TH/MM3 (1.8-7.7) Lymphocytes # (Auto) 0.8 TH/MM3 (1.0-4.8) Activated Partial 22.6 SEC Thromboplast Time (24.3-30.1) Sodium Level 135 MEQ/L (136-145) Potassium Level 8.2 MEQ/L 7.1 MEQ/L (3.5-5.1) (3.5-5.1) Carbon Dioxide Level 33.8 MEQ/L (21.0-32.0) Anion Gap 3 MEQ/L (5-15) Blood Urea Nitrogen 26 MG/DL (7-18) Estimat Glomerular Filtration 68 ML/MIN (>89) Rate Random Glucose 199 MG/DL (74-106) Calcium Level 8.4 MG/DL (8.5-10.1) Aspartate Amino Transf 41 U/L (15-37) (AST/SGOT) B-Type Natriuretic Peptide 184 PG/ML (0-100) Albumin 2.7 GM/DL (3.4-5.0) Last [address] 08/09/16 1057 Signed Impressions: Service Date/Time: Tuesday, August 09, 2016 13:05 - CONCLUSION: 1. No acute intracranial abnormality. 2. Remote right occipital/parietal lobe infarct. 3. Apparent bilateral mastoiditis in the proper clinical setting. Chito Arellano MD Chest X-Ray 08/09/16 1057 Signed Impressions: Service Date/Time: Tuesday, August 09, 2016 11:11 - CONCLUSION: Slight failure. Chito Arellano MD Differential Diagnosis Lethargy, respirator distress, altered mental statusCHF versus COPD exacerbation versus pneumonia versus metabolic issues versus dehydration versus acute intracranial processes Narrative Course Patient had been placed on BiPAP in the ER. Her mental status did not significantly improved. Her ABG shows significant hypercapnia and acidosis after 10 minutes of BiPAP. Chest x-ray shows slight CHF and BNP was mildly elevated. Lasix was given in the ER. Her lab work shows elevated hemolyzed potassium. Repeat potassium was done which is still hemolyzed and elevated. Her EKG did not show significant T-wave peaking or other changes that I would expect for this level potassium. However, considering 2 potassiums which are elevated, additional calcium, D50 and insulin was given. Case had been discussed with Dr. Gamboa who agrees to admit the patient to critical care unit. Repeat ABG done for respiratory status. Aggregate critical care time was 35 minutes. Time to perform other separately billable procedures was not included in the critical care time. My time did not include minutes spent treating any other patients simultaneously or on activities that did not directly contribute to the patient's treatment. The services I provided to this patient were to treat and/or prevent clinically significant deterioration that could result in: Worsening respiratory distress, respiratory failure, I provided critical care services requiring my management, as noted below: Chart data review, documentation time, medication orders and management, vital sign assessments/reviewing monitor data, ordering and reviewing lab tests, ordering and interpreting/reviewing x-rays and diagnostic studies, care of the patient and discussion of the patient with the admitting physicians. Diagnosis Primary Impression: CHF exacerbation Additional Impression: AQcute hypercapnic and hypoxic respiratory failure on BiPAP Admitting Information Admitting Physician Requests: Admit Condition: Stable Harvey Soto MD Aug 09, 2016 15:38
--- NOTE | 2016-08-09 15:49 | MH ---
cc: CHARLI DOWNS M.D. DATE OF ADMISSION: 08/09/2016 HISTORY OF PRESENT ILLNESS: The patient is a 65-year-old female with multiple medical comorbidities which include congestive heart failure with preserved ejection fraction, hypertension, rheumatoid arthritis, COPD, diabetes mellitus, obstructive sleep apnea and morbid obesity. She presented to the [facility] Emergency Department from a local nursing facility with altered mental status. The patient was found difficult to arouse this morning and required sternal rub to respond. She was placed on BiPAP at 15/5 with a 50% FIO2. An ABG was performed at noon which showed acute hypercapnic respiratory acidosis with a pH of 7.24, carbon dioxide of 89, a pA02 of 152, bicarbonate of 37 and saturation of 97%. Chest x-ray on arrival showed slight failure. Due to her altered mental status, CT scan of the brain was obtained which showed no acute intracranial abnormality; however, it showed remote right occipital/parietal lobe infarct. Her laboratory data showed hyperkalemia with potassium of 8.2 with slight hemolysis. Repeat potassium level is pending. The patient has normal renal function with a creatinine of 0.99 and estimated GFR of 68. Her BNP level is 184. In the emergency room, she was given Lasix 40 milligrams IV x1. When seen, the patient is on BiPAP with 02 saturation of 98%. She does respond to questions appropriately however she falls back to sleep. A repeat ABG is pending during the time of this dictation along with a repeat potassium level. Most of the history was obtained from reviewing the medical records as the patient is a poor historian. PAST MEDICAL HISTORY: Her past medical history is significant for: 1. Rheumatoid arthritis. 2. Obstructive sleep apnea. 3. Congestive heart failure with preserved ejection fraction. 4. Hypertension. 5. COPD. 6. Diabetes mellitus. PAST SURGICAL HISTORY: 1. Previous stent in the right iliac artery. 2. Previous section. 3. Previous cataract surgery. 4. Previous partial hysterectomy. SOCIAL HISTORY: Nonsmoker and non-drinker. The patient is a group home resident. ALLERGIES: NO KNOWN DRUG ALLERGIES. REPORTED MEDICATIONS: Reviewed, which include: 1. Plavix. 2. Lasix. 3. Lopressor. 4. Folic acid. 5. Sertraline. 6. Atorvastatin. 7. Aspirin. 8. Vitamin C. 9. Ferrous sulfate. 10. Levemir insulin. 11. Xanax. 12. Oxycodone PRN. FAMILY HISTORY: Noncontributory. REVIEW OF SYSTEMS: The review of systems is as per the history of present illness, and the rest of the review of systems is limited as the patient is a poor historian. PHYSICAL EXAMINATION: GENERAL: A 65-year-old female morbidly obese lying in bed in no acute respiratory distress with intermittent lethargy. VITAL SIGNS: Afebrile, temperature 98.6, pulse 77, blood pressure 129/58, saturation 98% to 100% on the BiPAP. HEAD, EYES, EARS, NOSE, THROAT: Normocephalic and atraumatic. Pupils equal, round and reactive to light and accommodation. Extraocular muscles intact. Conjunctivae are pink. Nonicteric sclerae. Oral mucosa within normal limits. NECK: The neck is supple. No jugular venous distention, adenopathy or thyromegaly. Trachea in the midline. CARDIOVASCULAR: Regular rate and rhythm. Normal S1-S2. No murmurs, rubs or gallops noted. PULMONARY: Bilateral equal air entry. No wheezing. Overall diminished. ABDOMEN: The abdomen is soft, obese, nontender and no distention. Positive bowel sounds. EXTREMITIES: No cyanosis, clubbing or edema. NEUROLOGIC: No focal sensory deficit. The patient does respond to questions appropriately however she dozes back to sleep intermittently. LABORATORY DATA: Sodium 135, potassium 8.2, chloride 98, carbon dioxide 33, BUN 26, creatinine 0.99, glucose 199, calcium 8.4, AST 41, ALT 25, alkaline phosphatase 71. Troponin 0.03. Total CK 116. BNP 184. Albumin 2.1. WBCs 9.2, hemoglobin 11.4, hematocrit 39, platelet count of 175,000. INR 0.9. PT 9.8. PTT 22.6. Laboratory data showed negative leukocyte esterase, negative nitrite, less than 1 WBC. ABG showed a pH of 7.24, carbon dioxide 89, pA02 of 152, bicarbonate 37, saturation 97%. RADIOGRAPHIC STUDIES: CT scan of the brain showed no acute intracranial abnormality. Chest x-ray showed slight failure. EKGS: EKG shows normal sinus rhythm and no peaked T-waves. IMPRESSION: 1. Acute hypercapnic respiratory failure. 2. COPD exacerbation. 3. Obesity hypoventilation syndrome. 4. Obstructive sleep apnea / morbid obesity. 5. Hyperkalemia. 6. Congestive heart failure with preserved ejection fraction. 7. Hypertension. 8. COPD. 9. Rheumatoid arthritis. 10. Diabetes mellitus. RECOMMENDATIONS: 1. Monitor neuro status closely and avoid any sedatives. 2. CT of the brain in the emergency department negative for acute intracranial abnormalities. 3. Continue with oxygen and maintain saturations above 92%. 4. Bronchodilators in the form of DuoNeb q. 4 + q. 2 PRN for shortness of breath and will start steroids Solu-Medrol 40 milligrams IV q. 8. 5. Will repeat ABG now on a BiPAP. If there is any worsening in respiratory acidosis or clinical condition, will proceed with intubation and mechanical ventilation. 6. Monitor heart rate and blood pressure closely and maintain MAP greater than 65 mmHg. Echo from June showed preserved EF, grade I diastolic dysfunction. 7. Continue with aspirin 81 milligrams daily, Plavix 75 milligrams daily, Lipitor 40 milligrams at bedtime. 8. Monitor renal function, intakes and outputs. 9. Will followup on a repeat potassium level and if remains hyperkalemic, will treat the hyperkalemia with IV insulin D50, bicarbonate, calcium and Kayexalate. 10. Keep NPO for now until respiratory status improves. 11. Place on Protonix 40 milligrams IV daily for GI prophylaxis. 12. Place on empiric antibiotics in the form of Levaquin and monitor for signs of infection which include fever and WBCs. 13. Urinalysis in the emergency department negative for a urinary tract infection and chest x-ray showed slight failure. 14. Will obtain a sputum culture and Gram stain. 15. Monitor CBC and continue with ascorbic acid 500 milligrams twice a day, folic acid 1 milligram daily and multivitamins one tablet daily. 16. Place on sliding scale insulin with Accu-Chek q. 6 hours for glycemic control. 17. GI prophylaxis with Protonix 40 milligrams daily and DVT prophylaxis with SCDs and Lovenox 40 milligrams subcutaneous daily. Further recommendations will be based on the hospital course. The case was discussed with the emergency department physician. MD HEIDI Yang/JEANIE /3:17 PM /3:30 PM JARETH
[2016-08-09 16:11] LABS: BLOOD GAS BASE EXCESS 11.3 mmol/L (-2-2); BLOOD GAS CARBOXYHEMOGLOBIN 1.4 % (0-4); BLOOD GAS HCO3 38 mmol/L (22-26); BLOOD GAS METHEMOGLOBIN 0.7 % (0-2); BLOOD GAS O2 HGB SATURATION 96 % (90-100); BLOOD GAS OXYGEN CONTENT 14.9 Vol % (12.0-20.0); BLOOD GAS PCO2 82 mmHg (38-42); BLOOD GAS PO2 106 mmHG (61-120); BLOOD GAS TOTAL HGB 10.9 G/DL (12.0-16.0); TEMP CORR TO 98.6
[2016-08-09 16:12] LABS: CRITICAL VALUE YES; OXYGEN DEVICE BiPAP
[2016-08-09 16:13] LABS: DRAW SITE RT RADIAL; FIO2 40 %; NUMBER OF ARTERIAL PUNCTURES 1; STAT YES; ULNAR PULSE PRESENT; VENT SETTINGS IPAP 15/EPAP 5 PS 10
[2016-08-09] MEDS: RESP: ALBUTEROL 2.5 MG/IPRATROPIUM 0.5 MG NEB (SCH) INH ×3 (16:55→23:23)
[2016-08-09] MEDS ORDERED: CALCIUM GLUCONATE INJ 1 GM in SODIUM CHLORIDE 0.9% INJ 100 ML IV ONE (17:00)
[2016-08-09] MEDS: methylPREDNISolone SOD SUCC 40 MG/1 ML VIAL IV PUSH SCH ×2 (17:48→22:59)
[2016-08-09] MEDS: LEVOFLOXACIN 500 MG PREMIX INJ 100 ML IV SCH (17:48)
[2016-08-09] MEDS: PANTOPRAZOLE SODIUM 40 MG VIAL IV SCH (17:49)
[2016-08-09] MEDS: ENOXAPARIN SODIUM 40 MG/0.4 ML SYRINGE SQ SCH (17:50)
[2016-08-09 18:27] LABS: BLOOD GAS BASE EXCESS 9.2 mmol/L (-2-2); BLOOD GAS CARBOXYHEMOGLOBIN 1.7 % (0-4); BLOOD GAS HCO3 36 mmol/L (22-26); BLOOD GAS METHEMOGLOBIN 1.4 % (0-2); BLOOD GAS O2 HGB SATURATION 95 % (90-100); BLOOD GAS OXYGEN CONTENT 14.2 Vol % (12.0-20.0); BLOOD GAS PCO2 76 mmHg (38-42); BLOOD GAS PO2 109 mmHg (61-120); BLOOD GAS TOTAL HGB 10.5 G/DL (12.0-16.0); CRITICAL VALUE YES; DRAW SITE LT RADIAL; FIO2 45 %; NUMBER OF ARTERIAL PUNCTURES 2; OXYGEN DEVICE BIPAP 18IPAP/10EPAP; STAT NO; TEMP CORR TO 98.6; ULNAR PULSE PRESENT
[2016-08-09] MEDS: CLOPIDOGREL 75 MG TAB PO SCH (19:59)
[2016-08-09] MEDS: ATORVASTATIN 40 MG TAB PO SCH (19:59)
[2016-08-09] MEDS: ASCORBIC ACID 500 MG TAB PO SCH (19:59)
[2016-08-09] MEDS: FOLIC ACID 1 MG TAB PO SCH (20:00)
[2016-08-09] MEDS: ASPIRIN EC 81 MG TABEC PO SCH (20:00)
[2016-08-09] MEDS: FERROUS SULFATE 325 MG (65 MG ELEMENTAL IRON) TAB PO SCH (20:00)
[2016-08-09] MEDS: INSULIN NovoLIN REGULAR SUPPLEMENTAL SCALE SQ SCH (20:30)
[2016-08-09 21:06] LABS: MEAN CORPUSCULAR HGB CONC 29.7 % (32.0-36.0)
[2016-08-09 22:14] LABS: BLOOD GAS BASE EXCESS 8.5 mmol/L (-2-2); BLOOD GAS CARBOXYHEMOGLOBIN 1.9 % (0-4); BLOOD GAS HCO3 34 mmol/L (22-26); BLOOD GAS METHEMOGLOBIN 1.2 % (0-2); BLOOD GAS O2 HGB SATURATION 96 % (90-100); BLOOD GAS OXYGEN CONTENT 14.3 Vol % (12.0-20.0); BLOOD GAS PCO2 64 mmHg (38-42); BLOOD GAS PO2 117 mmHg (61-120); BLOOD GAS TOTAL HGB 10.5 G/DL (12.0-16.0); CRITICAL VALUE YES; DRAW SITE RT RADIAL; FIO2 40 %; NUMBER OF ARTERIAL PUNCTURES 1; OXYGEN DEVICE BIPAP; STAT NO; TEMP CORR TO 98.6; ULNAR PULSE PRESENT; VENT SETTINGS 18 IPAP/ 10EPAP
[2016-08-10] VITALS (21 sets, daily range): BP systolic 131–177; BP diastolic 62–95; PULSE 87–120; RESP 14–29; TEMP 98.2–99.7; O2SAT 40–100
[2016-08-10] MEDS: CHLORHEXIDINE GLUCONATE 2 % 1 PACK (2 CLOTHS) TOP SCH (03:38)
[2016-08-10] MEDS: INSULIN NovoLIN REGULAR SUPPLEMENTAL SCALE SQ SCH ×4 (03:38→20:09)
[2016-08-10] MEDS: RESP: ALBUTEROL 2.5 MG/IPRATROPIUM 0.5 MG NEB (SCH) INH ×4 (03:44→21:01)
[2016-08-10 04:29] LABS: HEMATOCRIT 35.7 % (35.0-46.0); MEAN CORPUSCULAR HEMOGLOBIN 23.5 PG (27.0-34.0); PLATELET COUNT 170 TH/MM3 (150-450); RED BLOOD COUNT 4.51 MIL/MM3 (4.00-5.30); RED CELL DISTRIBUTION WIDTH 16.3 % (11.6-17.2); WHITE BLOOD COUNT 5.4 TH/MM3 (4.0-11.0)
[2016-08-10 04:34] LABS: HEMO FLAGS AUTO DIFF
[2016-08-10 05:12] LABS: MAGNESIUM 2.3 MG/DL (1.5-2.5)
[2016-08-10] MEDS: ACETAMINOPHEN 500 MG CPLT PO PRN ×3 (05:40→22:37)
[2016-08-10] MEDS: methylPREDNISolone SOD SUCC 40 MG/1 ML VIAL IV PUSH SCH ×3 (05:40→22:33)
[2016-08-10 05:53] LABS: BLOOD GAS BASE EXCESS 10.9 mmol/L (-2-2); BLOOD GAS CARBOXYHEMOGLOBIN 1.4 % (0-4); BLOOD GAS HCO3 36 mmol/L (22-26); BLOOD GAS METHEMOGLOBIN 0.8 % (0-2); BLOOD GAS O2 HGB SATURATION 95 % (90-100); BLOOD GAS OXYGEN CONTENT 14.7 Vol % (12.0-20.0); BLOOD GAS PCO2 63 mmHg (38-42); BLOOD GAS PO2 82 mmHG (61-120); CRITICAL VALUE YES; OXYGEN DEVICE BIPAP; TEMP CORR TO 98.6
[2016-08-10 05:54] LABS: DRAW SITE RT RADIAL; FIO2 40 %; NUMBER OF ARTERIAL PUNCTURES 1; STAT NO; ULNAR PULSE PRESENT; VENT SETTINGS IPAP 18/ EPAP 10
[2016-08-10 09:13] LABS: BANDS 1 % (0-6); NEUTROPHIL # MANUAL DIFF 4.5 TH/MM3 (1.8-7.7); POLYS (SEG NEUTROPHILS) 83 % (16-70); WBC DIFF SAMPLE 100
[2016-08-10 09:14] LABS: PLATELET ESTIMATE SMEAR NORMAL (NORMAL); PLATELET MORPHOLOGY NORMAL (NORMAL); SCAN/DIFF FINAL DIFF MANUAL
[2016-08-10] MEDS: PANTOPRAZOLE SODIUM 40 MG VIAL IV SCH (10:03)
[2016-08-10] MEDS: ASCORBIC ACID 500 MG TAB PO SCH ×2 (10:04→20:09)
[2016-08-10] MEDS: CLOPIDOGREL 75 MG TAB PO SCH (10:04)
[2016-08-10] MEDS: FERROUS SULFATE 325 MG (65 MG ELEMENTAL IRON) TAB PO SCH ×2 (10:04→20:09)
[2016-08-10] MEDS: ASPIRIN EC 81 MG TABEC PO SCH (10:04)
[2016-08-10] MEDS: FOLIC ACID 1 MG TAB PO SCH (10:04)
[2016-08-10] MEDS: SODIUM CHLORIDE 0.9% FLUSH 5 ML FLUSH IVF PRN (10:06)
[2016-08-10] MEDS: MULTIVITAMIN HEMATINIC THERAPEUTIC TAB PO SCH (10:07)
--- NOTE | 2016-08-10 14:37 | EKG ---
Date Performed: 08/09/2016 Time Performed: 12:11:25 PTAGE: 65 years EKG: Sinus rhythm Atrial abnormality Nonspecific T wave change Compared to prior tracing no significant change PREVIOUS TRACING : 07/17/2016 18.55 DOCTOR: Wes Macias Interpretating Date/Time 08/10/2016 14:35:25
--- NOTE | 2016-08-10 15:51 | HHI.CCPN ---
Subjective Remarks/Hospital Course Subjective: 08/10: doing much better. now on o2 by NC. complains of pain in her buttock where her decubitus is. Objective Vital Signs Date Time Temp Pulse Resp B/P Pulse Ox O2 Delivery O2 Flow Rate FiO2 08/10/16 12:44 96 Nasal Cannula 4.00 08/10/16 10:32 50 08/10/16 06:00 92 08/10/16 04:00 98.5 18 157/71 Intake and Output 08/09/16 08/09/16 08/10/16 08:00 16:00 00:00 Intake Total 122 ml Output Total 1775 ml Balance -1653 ml Result Diagram: 08/10/16 0405 08/10/16 0405 Other Results Laboratory Tests Test 08/09/16 08/09/16 08/09/16 08/10/16 16:04 18:20 21:59 05:40 Blood Gas Puncture Site RT RADIAL LT RADIAL RT RADIAL RT RADIAL Blood Gas Patient Temperature 98.6 98.6 98.6 98.6 Blood Gas HCO3 38 mmol/L 36 mmol/L 34 mmol/L 36 mmol/L (22-26) (22-26) (22-26) (22-26) Blood Gas Base Excess 11.3 mmol/L 9.2 mmol/L 8.5 mmol/L 10.9 mmol/L (-2-2) (-2-2) (-2-2) (-2-2) Blood Gas Oxygen Saturation 96 % (90-100) 95 % (90-100) 96 % (90-100) 95 % (90- 100) Arterial Blood pH 7.29 7.29 7.35 7.38 (7.380-7.420) (7.380-7.420) (7.380-7.420) (7.380-7.420) Arterial Blood Partial 82 mmHg (38-42) 76 mmHg (38-42) 64 mmHg (38-42) 63 mmHg ( 38-42) Pressure CO2 Arterial Blood Partial 106 mmHG 109 mmHg 117 mmHg 82 mmHG Pressure O2 (61-120) (61-120) (61-120) (61-120) Arterial Blood Oxygen Content 14.9 Vol % 14.2 Vol % 14.3 Vol % 14.7 Vol % (12.0-20.0) (12.0-20.0) (12.0-20.0) (12.0-20.0) Arterial Blood 1.4 % (0-4) 1.7 % (0-4) 1.9 % (0-4) 1.4 % (0-4) Carboxyhemoglobin Arterial Blood Methemoglobin 0.7 % (0-2) 1.4 % (0-2) 1.2 % (0-2) 0.8 % (0-2) Blood Gas Hemoglobin 10.9 G/DL 10.5 G/DL 10.5 G/DL 11.0 G/DL (12.0-16.0) (12.0-16.0) (12.0-16.0) (12.0-16.0) Oxygen Delivery Device BiPAP BIPAP BIPAP BIPAP 18IPAP/10EPAP Blood Gas Ventilator Setting IPAP 15/EPAP 5 18 IPAP/ IPAP 18/ EPAP PS 10 10EPAP 10 Blood Gas Inspired Oxygen 40 % 45 % 40 % 40 % Objective Remarks gen: morbidly obese female, lying in bed. heent: pupils, equal, round, reactive, conjugate. mucous membranes moist. neck: jvd unable to be assessed secondary to obesity. trachea midline. chest: scant wheezes. equal bilateral. on o2 by nc. cv: normal rate, regular rhythm,. no appreciable murmurs abd: obese. soft. nontender, nondistended. no guarding. extr: 2+ pitting edema. distal pulses 2+ neuro: RASS 0. alert and oriented. no focal deficits. A/P Assessment and Plan Assessment: 65yF morbid obesity, ARSEN, obesity hypoventilation syndrome, COPD all of which are poorly controlled at baseline and for which she has recent re- admissions for exacerbations presented from SNF with hypercarbic respiratory failure. now clinically improving. I think she is stable to send to the floor with hospitalist services. However, over the last month, she has had 3 ICU admissions for the same symptoms. I worry that her noncompliance and poorly controlled hypercarbic processes will only continue to worsen and eventually will lead to her . Plan: 1. Hypercarbic respiratory failure -- improved. -- wean o2 by NC for goal spo2 > 88% -- frequent nebs -- steroids 2. ARSEN/OHS -- BiPAP during naps and overnight. strict. 3. COPD exacerbation -- steroids -- Levaquin -- f/u cultures 4. CHF with preserved EF -- restart home lasix 5. Hypertension -- restart home ARB, bblocker 6. Diabetes -- SSI 7. Decubitus Ulcer -- continue SSD to wound daily 8. Depression -- restart home SSRI -- OOB to chair to help with functionality. 9. Anxiety -- will not restart xanax as this may be exacerbating hypercarbia -- non-pharmacologic interventions including deep breathing encouraged. 10. SCDs, Lovenox for DVT prophylaxis. 11. Protonix for GI prophylaxis (home dose). 12. Dispo: to floor with hospitalist following. Handy Frank MD Aug 10, 2016 15:51
[2016-08-10] MEDS: POLYETHYLENE GLYCOL 17 GM PKG PO SCH (16:15)
[2016-08-10] MEDS: SILVER SULFADIAZINE 1% CR 50 GM JAR TOPICAL SCH (16:23)
[2016-08-10] MEDS: ENOXAPARIN SODIUM 40 MG/0.4 ML SYRINGE SQ SCH (16:37)
[2016-08-10] MEDS: LEVOFLOXACIN 500 MG PREMIX INJ 100 ML IV SCH (16:38)
[2016-08-10] MEDS: FUROSEMIDE 20 MG TAB PO SCH (18:02)
[2016-08-10] MEDS: LOSARTAN 50 MG TAB PO SCH (20:08)
[2016-08-10] MEDS: METOPROLOL TARTRATE 25 MG TAB PO SCH (20:09)
[2016-08-10] MEDS: ATORVASTATIN 40 MG TAB PO SCH (20:09)
[2016-08-11] VITALS (11 sets, daily range): BP systolic 131–178; BP diastolic 62–79; PULSE 70–98; RESP 21–23; TEMP 96.6–98.5; O2SAT 93–99
[2016-08-11] MEDS: RESP: ALBUTEROL 2.5 MG/IPRATROPIUM 0.5 MG NEB (SCH) INH ×7 (00:31→23:34)
[2016-08-11] MEDS: INSULIN NovoLIN REGULAR SUPPLEMENTAL SCALE SQ SCH ×4 (03:34→22:00)
[2016-08-11] MEDS: CHLORHEXIDINE GLUCONATE 2 % 1 PACK (2 CLOTHS) TOP SCH (04:00)
[2016-08-11 04:59] LABS: HEMATOCRIT 32.9 % (35.0-46.0); MEAN CELL VOLUME 76.3 FL (80.0-100.0); MEAN CORPUSCULAR HEMOGLOBIN 24.2 PG (27.0-34.0); MEAN CORPUSCULAR HGB CONC 31.7 % (32.0-36.0); PLATELET COUNT 186 TH/MM3 (150-450); RED BLOOD COUNT 4.31 MIL/MM3 (4.00-5.30); RED CELL DISTRIBUTION WIDTH 16.1 % (11.6-17.2); WHITE BLOOD COUNT 5.4 TH/MM3 (4.0-11.0)
[2016-08-11 05:24] LABS: REVIEW FLAG FINAL
[2016-08-11 05:32] LABS: BICARBONATE 34.9 MEQ/L (21.0-32.0); POTASSIUM 5.1 MEQ/L (3.5-5.1)
[2016-08-11] MEDS: methylPREDNISolone SOD SUCC 40 MG/1 ML VIAL IV PUSH SCH ×3 (05:42→22:02)
[2016-08-11] MEDS: POLYETHYLENE GLYCOL 17 GM PKG PO SCH (08:23)
[2016-08-11] MEDS: FERROUS SULFATE 325 MG (65 MG ELEMENTAL IRON) TAB PO SCH ×2 (08:24→22:02)
[2016-08-11] MEDS: ASCORBIC ACID 500 MG TAB PO SCH ×2 (08:24→22:02)
[2016-08-11] MEDS: MULTIVITAMIN HEMATINIC THERAPEUTIC TAB PO SCH (08:24)
[2016-08-11] MEDS: ASPIRIN EC 81 MG TABEC PO SCH (08:24)
[2016-08-11] MEDS: CLOPIDOGREL 75 MG TAB PO SCH (08:24)
[2016-08-11] MEDS: LOSARTAN 50 MG TAB PO SCH ×2 (08:24→22:02)
[2016-08-11] MEDS: FOLIC ACID 1 MG TAB PO SCH (08:24)
[2016-08-11] MEDS: SERTRALINE HCL 50 MG TAB PO SCH (08:24)
[2016-08-11] MEDS: PANTOPRAZOLE SODIUM 40 MG VIAL IV SCH (08:24)
[2016-08-11] MEDS: METOPROLOL TARTRATE 25 MG TAB PO SCH ×2 (08:24→22:02)
[2016-08-11] MEDS: FUROSEMIDE 20 MG TAB PO SCH ×2 (08:24→17:29)
[2016-08-11] MEDS: SILVER SULFADIAZINE 1% CR 50 GM JAR TOPICAL SCH (08:25)
[2016-08-11] MEDS: SODIUM CHLORIDE 0.9% FLUSH 5 ML FLUSH IVF PRN (08:25)
--- NOTE | 2016-08-11 10:17 | HHI.PR ---
Subjective Remarks in no acute distress but with some sob. no fever. daughter at the bedside. Objective Vitals Vital Signs Date Time Temp Pulse Resp B/P Pulse Ox O2 Delivery O2 Flow Rate FiO2 08/11/16 08:19 Nasal Cannula 3.00 40 08/11/16 08:03 98.5 70 22 131/62 96 08/11/16 08:01 98 Nasal Cannula 3.00 08/11/16 04:30 97.5 82 22 155/72 98 08/11/16 04:22 98 40 08/11/16 00:37 99 40 08/10/16 23:37 20 08/10/16 23:00 99.0 87 22 143/72 98 08/10/16 22:40 98 40 08/10/16 22:00 98.2 88 22 158/73 94 08/10/16 21:06 99 Nasal Cannula 3.00 08/10/16 20:00 97 08/10/16 20:00 98.6 99 26 153/95 98 08/10/16 20:00 99 Nasal Cannula 4.00 08/10/16 18:00 120 08/10/16 16:00 90 Nasal Cannula 4.00 08/10/16 16:00 99.2 104 29 177/76 90 08/10/16 16:00 104 08/10/16 14:00 101 08/10/16 12:44 96 Nasal Cannula 4.00 08/10/16 12:00 98 Nasal Cannula 4.00 08/10/16 12:00 99.1 97 14 131/62 94 08/10/16 12:00 97 08/10/16 10:32 99 Venturi Mask 6.00 50 I/O 08/10/16 08/10/16 08/10/16 08/11/16 08/11/16 08/11/16 07:00 15:00 23:00 07:00 15:00 23:00 Intake Total 240 ml 170 ml 150 ml 400 ml Output Total 525 ml 700 ml 650 ml Balance -285 ml -530 ml -500 ml 400 ml Intake Oral 240 ml 120 ml 150 ml 400 ml IV Total 50 ml Output Urine Total 525 ml 700 ml 650 ml Result Diagram: 08/11/16 0443 08/11/16 0443 Imaging Last Impressions Head CT 08/09/16 1057 Signed Impressions: Service Date/Time: Tuesday, August 09, 2016 13:05 - CONCLUSION: 1. No acute intracranial abnormality. 2. Remote right occipital/parietal lobe infarct. 3. Apparent bilateral mastoiditis in the proper clinical setting. Chito Arellano MD Chest X-Ray 08/09/16 1057 Signed Impressions: Service Date/Time: Tuesday, August 09, 2016 11:11 - CONCLUSION: Slight failure. Chito Arellano MD Objective Remarks GENERAL: obese, in no apparent distress. CARDIOVASCULAR: Regular rate and regular rhythm without murmurs, gallops, or rubs. RESPIRATORY: Clear to auscultation. Breath sounds equal bilaterally. No wheezes , rales, or rhonchi. GASTROINTESTINAL: Abdomen soft, non-tender, nondistended. Normal, active bowel sounds MUSCULOSKELETAL: Extremities without clubbing, cyanosis, or edema. NEURO: Alert & Oriented x4 to person, place, time, situation. Moves all ext x4 Procedures none Medications and IVs Current Medications IV Flush (NS Flush) 2 ml UNSCH PRN IVF FLUSH AFTER USING IV ACCESS Last administered on 08/11/16 08:25; Start 08/09/16 at 11:00 Furosemide (Lasix Inj) 40 mg ONCE ONCE IV PUSH Last administered on 08/09/16 13:28; Start 08/09/16 at 12:45; Stop 08/09/16 at 12:46; Status DC Pantoprazole Sodium (Protonix Inj) 40 mg DAILY IV Last administered on 08:24; Start 08/09/16 at 16:00 Albuterol/ Ipratropium (Duoneb Neb) 1 ampule Q4HR NEB INH Last administered on 08/11/16 07:58; Start 08/09/16 at 16:00 Albuterol/ Ipratropium (Duoneb Neb) 1 ampule Q2HR NEB PRN INH WHEEZING; Start 08/09/16 at 15:00 Enoxaparin Sodium (Lovenox Inj) 40 mg Q24H SQ Last administered on 08/10/16 16 :37; Start 08/09/16 at 16:00 Miscellaneous Information 1 Q361D XX ; Start 08/09/16 at 15:00 Chlorhexidine Gluconate (Chlorhexidine 2% Cloth) 3 pack Taper DAILY@04 TOP Last administered on 08/10/16 03:38; Start 08/10/16 at 04:00; Stop 08/06/17 at 03:59 Chlorhexidine Gluconate 3 pack 3 pack UNSCH PRN TOP HYGIENIC CARE; Start at 15:00 Levofloxacin/ Dextrose (Levaquin 500 Mg Premix Inj) 100 ml @ 100 mls/hr Q24H IV Last administered on 08/10/16 16:38; Start 08/09/16 at 16:00 Dextrose (D50w (Vial) Inj) 25 ml UNSCH PRN IV PUSH HYPOGLYCEMIA-SEE COMMENTS; Start 08/09/16 at 15:00; Stop 08/09/16 at 15:53; Status DC Glucagon (Glucagon Inj) 1 mg UNSCH PRN OTHER HYPOGLYCEMIA-SEE COMMENTS; Start 08/09/16 at 15:00 Insulin Human Regular (NovoLIN R SUPPLEMENTAL SCALE) 1 Q6H SQ Last administered on 08/11/16 08:25; Start 08/09/16 at 15:00 Ascorbic Acid (Vitamin C) 500 mg BID PO Last administered on 08/11/16 08:24; Start 08/09/16 at 21:00 Aspirin (Ecotrin Ec) 81 mg DAILY PO Last administered on 08/11/16 08:24; Start 08/09/16 at 15:15 Atorvastatin Calcium (Lipitor) 40 mg HS PO Last administered on 08/10/16 20:09 ; Start 08/09/16 at 21:00 Clopidogrel Bisulfate (Plavix) 75 mg DAILY PO Last administered on 08/11/16 08 :24; Start 08/09/16 at 16:00 Ferrous Sulfate (Ferrous Sulfate) 325 mg BID PO Last administered on 08/11/16 08:24; Start 08/09/16 at 21:00 Folic Acid (Folate) 1 mg DAILY PO Last administered on 08/11/16 08:24; Start 08/09/16 at 15:15 Multivitamin Hematinic Therapeutic (Theragran Hematinic) 1 tab DAILY PO Last administered on 08/11/16 08:24; Start 08/09/16 at 15:15 Methylprednisolone Sodium Succinate (SoluMEDROL INJ) 40 mg Q8HR IV PUSH Last administered on 08/11/16 05:42; Start 08/09/16 at 16:00 Insulin Human Regular (NovoLIN R INJ) 8 units ONCE ONCE IV PUSH Last administered on 08/09/16 16:29; Start 08/09/16 at 15:15; Stop 08/09/16 at 15:59 ; Status DC Dextrose 50 ml 50 ml ONCE ONCE IV PUSH Last administered on 08/09/16 16:29; Start 08/09/16 at 15:15; Stop 08/09/16 at 15:59; Status DC Calcium Gluconate/ Sodium Chloride (Calcium Gluconate Inj/NS Inj) 110 ml @ 110 mls/hr ONCE ONCE IV Last administered on 08/09/16 16:30; Start 08/09/16 at 17 :00; Stop 08/09/16 at 17:59; Status DC Sodium Polystyrene Sulfonate (Kayexalate Liq) 15 gm ONCE ONCE PO Last administered on 08/09/16 16:29; Start 08/09/16 at 15:15; Stop 08/09/16 at 15:59 ; Status DC Acetaminophen (Tylenol) 500 mg Q6H PRN PO PAIN 1-10 Last administered on 22:37; Start 08/10/16 at 00:45 Furosemide (Lasix) 20 mg BID@09,18 PO Last administered on 08/11/16 08:24; Start 08/10/16 at 18:00 Losartan Potassium (Cozaar) 50 mg BID PO Last administered on 08/11/16 08:24; Start 08/10/16 at 21:00 Metoprolol Tartrate (Lopressor) 25 mg BID PO Last administered on 08/11/16 08: 24; Start 08/10/16 at 21:00 Polyethylene Glycol (Miralax) 17 gm DAILY PO Last administered on 08/11/16 08: 23; Start 08/10/16 at 16:15 Sertraline HCl (Zoloft) 50 mg DAILY PO Last administered on 08/11/16 08:24; Start 08/11/16 at 09:00 Silver Sulfadiazine (Silvadene 1% Cream (50 Gm)) 1 applic DAILY TOPICAL Last administered on 08/11/16 08:25; Start 08/10/16 at 17:00 A/P Assessment and Plan A/P 1. Hypercarbic respiratory failure/ COPD exacerbation- improving. -- improved. -- wean o2 by NC for goal spo2 > 88%; patient is oxygen-dependent. -- frequent nebs -- steroids -consult pulmonary 2. ARSEN/OHS -- BiPAP during naps and overnight. strict. 3. COPD exacerbation -- steroids -- Levaquin -- f/u cultures -pulmonary consult 4. CHF with preserved EF -- restarted home lasix 5. Hypertension -- restarted home ARB, bblocker 6. Diabetes -resume long-acting insulin. -- SSI 7. Decubitus Ulcer -- continue SSD to wound daily 8. Depression -- restarted home SSRI -- OOB to chair to help with functionality. 9. Anxiety -- will not restart xanax as this may be exacerbating hypercarbia -- non-pharmacologic interventions including deep breathing encouraged. 10. SCDs, Lovenox for DVT prophylaxis. 11. Protonix for GI prophylaxis (home dose). [facility]. consult PT. Ava Banerjee MD Aug 11, 2016 10:17
[2016-08-11] MEDS: ENOXAPARIN SODIUM 40 MG/0.4 ML SYRINGE SQ SCH (15:17)
[2016-08-11] MEDS: LEVOFLOXACIN 500 MG PREMIX INJ 100 ML IV SCH (15:17)
--- NOTE | 2016-08-11 16:21 | RADRPT ---
EXAM DATE/TIME: 08/11/2016 14:59 [facility] COMPARISON: CHEST SINGLE AP, August 09, 2016, 11:11. INDICATIONS : Shortness of breath, possible pulmonary disease. MEDICAL HISTORY : Congestive heart failure. SURGICAL HISTORY : None. ENCOUNTER: Subsequent ACUITY: 2 days PAIN SCORE: 0/10 LOCATION: Bilateral chest FINDINGS: Basilar consolidation and small effusions. Mild cardiomegaly unchanged. No pneumothorax. CONCLUSION: No significant change. Chito Arellano MD on August 11, 2016 at 16:19 Board Certified Radiologist. This report was verified electronically.
[2016-08-11] MEDS: ACETAMINOPHEN 500 MG CPLT PO PRN (18:00)
--- NOTE | 2016-08-11 18:36 | MB ---
cc: JENNIFER DEAN DATE OF CONSULTATION: 08/11/2016. REASON FOR CONSULTATION: Respiratory failure and sleep apnea. HISTORY OF PRESENT ILLNESS: This is a 65-year-old extremely obese -[place]i lady who has a prior history of congestive heart failure, hypertension, rheumatoid arthritis, COPD, diabetes and obstructive sleep apnea who has been brought to the emergency room with altered mental status. The patient apparently was poorly responsive and was brought to the emergency room lethargic and placed on BiPAP at 50% and the initial blood gases showed a pH of 7.2 with a pCO2 of 89 and a pO2 of 152. The patient had a chest x-ray which showed mild vascular congestion. The patient did improve after being on BiPAP and a CT of the brain was done which was unremarkable. The patient was then started on IV steroids, diuretics and bronchodilators. She is now better and on a nasal cannula at 3.5 liters and the BiPAP was used at nights. The patient denies chest pains. No fevers or chills. She has had chronic arthritis and muscle wasting of the lower extremities with the inability to stand up or walk. PAST MEDICAL HISTORY: Her past history includes: 1. History of rheumatoid arthritis. 2. Obstructive sleep apnea. 3. COPD. 4. Hypertension. 5. Diabetes. 6. Asthma. 7. Congestive heart failure. PAST SURGICAL HISTORY: 1. Iliac artery stent on the right. 2. section. 3. Partial hysterectomy. 4. Cataract surgery. HABITS: The patient does not smoke. No alcohol use. [facility] the [facility]. MEDICATION LIST: 1. Lopressor. 2. Lasix. 3. Plavix. 4. Levemir insulin. 5. Xanax. 6. Oxycodone. 7. Aspirin. 8. Atorvastatin. FAMILY HISTORY: Noncontributory. ALLERGIES: NONE. REVIEW OF SYSTEMS: The patient has been overweight. She has pains in the chest, back and hips. She has no leg swelling. She denies headaches or blackouts. She has some epigastric and abdominal discomfort. She has some depression with anxiety. Other review of systems as in the presenting complaint. PHYSICAL EXAMINATION: GENERAL: This is an obese middle-aged lady who is pale and anxious. VITAL SIGNS: Blood pressure is 138/80, pulse is 78, respirations 24, temperature 98.5. HEAD, EYES, EARS, NOSE, THROAT: Head normocephalic. The pupils are reactive and equal. Tongue is moist. Throat is injected. Nasal mucosa edematous. NECK: The neck is supple with no venous distention. No thyromegaly. CHEST: Equal movements with a few wheezes anteriorly. Decreased breath sounds bilaterally. HEART: Heart sounds are regular. S1 AND S2. No murmur or gallop. ABDOMEN: Abdomen soft and obese without masses. No organomegaly or tenderness. The bowel sounds are active. EXTREMITIES: Muscle wasting of the right leg and pigmentation of the skin of the lower extremities. Decreased pulses. NEUROLOGIC: Not done. No focal deficits identified. The patient is alert and appropriate at this time. IMPRESSION: 1. Acute on chronic respiratory failure, resolving. 2. COPD with acute exacerbation. 3. Obstructive sleep apnea syndrome. 4. Congestive heart failure compensated. 5. Hypertension. 6. Diabetes mellitus. 7. Rheumatoid arthritis. 8. Obesity. PLAN: 1. The patient will be maintained on 3 liters of oxygen. 2. Keep sats over 90. 3. BiPAP to be used at nights and 30%. 4. Nebulized DuoNeb solution added four times a day and PRN. 5. We will continue with incentive spirometry at the bedside. 6. Solu-Medrol will be tapered down to 20 milligrams twice a day. 7. The patient will be switched to p.o. medicines in the next day or two including Levaquin 500 milligrams p.o. daily. I will follow the case with you Dr. Banerjee. Thank you for this consultation. MD ROSI Paula/JEANIE /2:35 PM /5:25 PM
[2016-08-11] MEDS: INSULIN DETEMIR 100 UNITS/ML VIAL SQ SCH (22:01)
[2016-08-11] MEDS: ATORVASTATIN 40 MG TAB PO SCH (22:02)
[2016-08-12] VITALS (10 sets, daily range): BP systolic 134–180; BP diastolic 69–115; PULSE 69–139; RESP 18–22; TEMP 96.6–98.7; O2SAT 95–100
[2016-08-12] MEDS: RESP: ALBUTEROL 2.5 MG/IPRATROPIUM 0.5 MG NEB (SCH) INH ×5 (02:58→19:05)
[2016-08-12] MEDS: INSULIN NovoLIN REGULAR SUPPLEMENTAL SCALE SQ SCH ×4 (03:45→21:00)
[2016-08-12] MEDS: CHLORHEXIDINE GLUCONATE 2 % 1 PACK (2 CLOTHS) TOP SCH (04:00)
[2016-08-12 05:14] LABS: HEMATOCRIT 35.3 % (35.0-46.0); MEAN CELL VOLUME 76.2 FL (80.0-100.0); MEAN CORPUSCULAR HEMOGLOBIN 23.4 PG (27.0-34.0); MEAN CORPUSCULAR HGB CONC 30.8 % (32.0-36.0); PLATELET COUNT 201 TH/MM3 (150-450); RED BLOOD COUNT 4.63 MIL/MM3 (4.00-5.30); RED CELL DISTRIBUTION WIDTH 16.4 % (11.6-17.2); WHITE BLOOD COUNT 5.9 TH/MM3 (4.0-11.0)
[2016-08-12 05:26] LABS: REVIEW FLAG FINAL
[2016-08-12 05:35] LABS: BICARBONATE 34.1 MEQ/L (21.0-32.0); POTASSIUM 4.9 MEQ/L (3.5-5.1)
[2016-08-12] MEDS: methylPREDNISolone SOD SUCC 40 MG/1 ML VIAL IV PUSH SCH (05:47)
[2016-08-12] MEDS: POLYETHYLENE GLYCOL 17 GM PKG PO SCH (09:00)
[2016-08-12] MEDS: CLOPIDOGREL 75 MG TAB PO SCH (09:59)
[2016-08-12] MEDS: MULTIVITAMIN HEMATINIC THERAPEUTIC TAB PO SCH (10:04)
[2016-08-12] MEDS: SERTRALINE HCL 50 MG TAB PO SCH (10:05)
[2016-08-12] MEDS: FUROSEMIDE 20 MG TAB PO SCH ×2 (10:05→17:10)
[2016-08-12] MEDS: PANTOPRAZOLE SOD 40 MG DELAYED RELEASE TAB PO SCH (10:05)
[2016-08-12] MEDS: ASCORBIC ACID 500 MG TAB PO SCH ×2 (10:06→20:47)
[2016-08-12] MEDS: FERROUS SULFATE 325 MG (65 MG ELEMENTAL IRON) TAB PO SCH ×2 (10:06→20:47)
[2016-08-12] MEDS: FOLIC ACID 1 MG TAB PO SCH (10:06)
[2016-08-12] MEDS: METOPROLOL TARTRATE 25 MG TAB PO SCH ×2 (10:07→20:47)
[2016-08-12] MEDS: LOSARTAN 50 MG TAB PO SCH ×2 (10:07→20:47)
[2016-08-12] MEDS: ASPIRIN EC 81 MG TABEC PO SCH (10:08)
[2016-08-12] MEDS: SILVER SULFADIAZINE 1% CR 50 GM JAR TOPICAL SCH (10:09)
--- NOTE | 2016-08-12 11:59 | HHI.PR ---
Subjective Remarks resting comfortably with no distress. denies sob. no chest pain. no fever or new complaints. Objective Vitals Vital Signs Date Time Temp Pulse Resp B/P Pulse Ox O2 Delivery O2 Flow Rate FiO2 08/12/16 09:07 98 Nasal Cannula 2.00 08/12/16 08:39 97.6 69 21 154/92 100 08/12/16 04:00 98.0 74 22 180/79 98 08/12/16 02:58 97 35 08/12/16 00:30 96.6 75 22 155/80 100 08/11/16 23:35 96 35 08/11/16 21:00 96 35 08/11/16 20:14 99 Nasal Cannula 3.00 08/11/16 20:00 96.6 98 22 176/73 93 08/11/16 20:00 99 Nasal Cannula 3.00 08/11/16 16:00 98.5 83 21 178/79 95 08/11/16 12:04 97.8 83 23 174/72 96 I/O 08/11/16 08/11/16 08/11/16 08/12/16 08/12/16 08/12/16 07:00 15:00 23:00 07:00 15:00 23:00 Intake Total 400 ml 480 ml 300 ml 100 ml Output Total 700 ml Balance 400 ml -220 ml 300 ml 100 ml Intake Oral 400 ml 480 ml 300 ml 100 ml IV Total 0 ml Output Urine Total 700 ml # Voids 2 1 1 # Bowel Movements 2 Result Diagram: 08/12/16 0501 08/12/16 0501 Imaging Last Impressions Head CT 08/09/16 1057 Signed Impressions: Service Date/Time: Tuesday, August 09, 2016 13:05 - CONCLUSION: 1. No acute intracranial abnormality. 2. Remote right occipital/parietal lobe infarct. 3. Apparent bilateral mastoiditis in the proper clinical setting. Chito Arellano MD Chest X-Ray 08/09/16 1057 Signed Impressions: Service Date/Time: Tuesday, August 09, 2016 11:11 - CONCLUSION: Slight failure. Chito Arellano MD Objective Remarks GENERAL: obese, in no apparent distress. CARDIOVASCULAR: Regular rate and regular rhythm without murmurs, gallops, or rubs. RESPIRATORY: Clear to auscultation. Breath sounds equal bilaterally. No wheezes , rales, or rhonchi. GASTROINTESTINAL: Abdomen soft, non-tender, nondistended. Normal, active bowel sounds MUSCULOSKELETAL: Extremities without clubbing, cyanosis, or edema. NEURO: Alert & Oriented x4 to person, place, time, situation. Moves all ext x4 Procedures none Medications and IVs Current Medications IV Flush (NS Flush) 2 ml UNSCH PRN IVF FLUSH AFTER USING IV ACCESS Last administered on 08/11/16 08:25; Start 08/09/16 at 11:00 Furosemide (Lasix Inj) 40 mg ONCE ONCE IV PUSH Last administered on 08/09/16 13:28; Start 08/09/16 at 12:45; Stop 08/09/16 at 12:46; Status DC Pantoprazole Sodium (Protonix Inj) 40 mg DAILY IV Last administered on 08:24; Start 08/09/16 at 16:00; Stop 08/11/16 at 10:19; Status DC Albuterol/ Ipratropium (Duoneb Neb) 1 ampule Q4HR NEB INH Last administered on 08/12/16 09:07; Start 08/09/16 at 16:00 Albuterol/ Ipratropium (Duoneb Neb) 1 ampule Q2HR NEB PRN INH WHEEZING; Start 08/09/16 at 15:00 Enoxaparin Sodium (Lovenox Inj) 40 mg Q24H SQ Last administered on 08/11/16 15 :17; Start 08/09/16 at 16:00 Miscellaneous Information 1 Q361D XX ; Start 08/09/16 at 15:00 Chlorhexidine Gluconate (Chlorhexidine 2% Cloth) 3 pack Taper DAILY@04 TOP Last administered on 08/10/16 03:38; Start 08/10/16 at 04:00; Stop 08/06/17 at 03:59 Chlorhexidine Gluconate 3 pack 3 pack UNSCH PRN TOP HYGIENIC CARE; Start at 15:00 Levofloxacin/ Dextrose (Levaquin 500 Mg Premix Inj) 100 ml @ 100 mls/hr Q24H IV Last administered on 08/11/16 15:17; Start 08/09/16 at 16:00 Dextrose (D50w (Vial) Inj) 25 ml UNSCH PRN IV PUSH HYPOGLYCEMIA-SEE COMMENTS; Start 08/09/16 at 15:00; Stop 08/09/16 at 15:53; Status DC Glucagon (Glucagon Inj) 1 mg UNSCH PRN OTHER HYPOGLYCEMIA-SEE COMMENTS; Start 08/09/16 at 15:00 Insulin Human Regular (NovoLIN R SUPPLEMENTAL SCALE) 1 Q6H SQ Last administered on 08/12/16 10:09; Start 08/09/16 at 15:00 Ascorbic Acid (Vitamin C) 500 mg BID PO Last administered on 08/12/16 10:06; Start 08/09/16 at 21:00 Aspirin (Ecotrin Ec) 81 mg DAILY PO Last administered on 08/12/16 10:08; Start 08/09/16 at 15:15 Atorvastatin Calcium (Lipitor) 40 mg HS PO Last administered on 08/11/16 22:02 ; Start 08/09/16 at 21:00 Clopidogrel Bisulfate (Plavix) 75 mg DAILY PO Last administered on 08/12/16 09 :59; Start 08/09/16 at 16:00 Ferrous Sulfate (Ferrous Sulfate) 325 mg BID PO Last administered on 08/12/16 10:06; Start 08/09/16 at 21:00 Folic Acid (Folate) 1 mg DAILY PO Last administered on 08/12/16 10:06; Start 08/09/16 at 15:15 Multivitamin Hematinic Therapeutic (Theragran Hematinic) 1 tab DAILY PO Last administered on 08/12/16 10:04; Start 08/09/16 at 15:15 Methylprednisolone Sodium Succinate (SoluMEDROL INJ) 40 mg Q8HR IV PUSH Last administered on 08/11/16 05:42; Start 08/09/16 at 16:00; Stop 08/11/16 at 10:14 ; Status DC Insulin Human Regular (NovoLIN R INJ) 8 units ONCE ONCE IV PUSH Last administered on 08/09/16 16:29; Start 08/09/16 at 15:15; Stop 08/09/16 at 15:59 ; Status DC Dextrose 50 ml 50 ml ONCE ONCE IV PUSH Last administered on 08/09/16 16:29; Start 08/09/16 at 15:15; Stop 08/09/16 at 15:59; Status DC Calcium Gluconate/ Sodium Chloride (Calcium Gluconate Inj/NS Inj) 110 ml @ 110 mls/hr ONCE ONCE IV Last administered on 08/09/16 16:30; Start 08/09/16 at 17 :00; Stop 08/09/16 at 17:59; Status DC Sodium Polystyrene Sulfonate (Kayexalate Liq) 15 gm ONCE ONCE PO Last administered on 08/09/16 16:29; Start 08/09/16 at 15:15; Stop 08/09/16 at 15:59 ; Status DC Acetaminophen (Tylenol) 500 mg Q6H PRN PO PAIN 1-10 Last administered on 18:00; Start 08/10/16 at 00:45 Furosemide (Lasix) 20 mg BID@09,18 PO Last administered on 08/12/16 10:05; Start 08/10/16 at 18:00 Losartan Potassium (Cozaar) 50 mg BID PO Last administered on 08/12/16 10:07; Start 08/10/16 at 21:00 Metoprolol Tartrate (Lopressor) 25 mg BID PO Last administered on 08/12/16 10: 07; Start 08/10/16 at 21:00 Polyethylene Glycol (Miralax) 17 gm DAILY PO Last administered on 08/11/16 08: 23; Start 08/10/16 at 16:15 Sertraline HCl (Zoloft) 50 mg DAILY PO Last administered on 08/12/16 10:05; Start 08/11/16 at 09:00 Silver Sulfadiazine (Silvadene 1% Cream (50 Gm)) 1 applic DAILY TOPICAL Last administered on 08/12/16 10:09; Start 08/10/16 at 17:00 Methylprednisolone Sodium Succinate (SoluMEDROL INJ) 20 mg Q8HR IV PUSH Last administered on 08/12/16 05:47; Start 08/11/16 at 14:00 Insulin Detemir (Levemir Inj) 17 units HS SQ Last administered on 08/11/16 22: 01; Start 08/11/16 at 21:00 Pantoprazole Sodium (Protonix) 40 mg DAILY PO Last administered on 08/12/16 10 :05; Start 08/12/16 at 09:00 A/P Assessment and Plan A/P 1. Hypercarbic respiratory failure/ COPD exacerbation- improving. -- improved. -- wean o2 by [place] for goal spo2 > 88%; patient is oxygen-dependent. -- frequent nebs -- continue to taper down IV steroids -consulted pulmonary 2. ARSEN/OHS -- BiPAP during naps and overnight. strict. 3. COPD exacerbation -- steroids -- Levaquin -pulmonary consult 4. CHF with preserved EF -- restarted home lasix 5. Hypertension -- restarted home ARB, bblocker 6. Diabetes -resume long-acting insulin. -- SSI 7. Decubitus Ulcer -- continue SSD to wound daily 8. Depression -- restarted home SSRI -- OOB to chair to help with functionality. 9. Anxiety -- will not restart xanax as this may be exacerbating hypercarbia -- non-pharmacologic interventions including deep breathing encouraged. 10. SCDs, Lovenox for DVT prophylaxis. 11. Protonix for GI prophylaxis (home dose). consulted PT. Discharge Planning dc planning to SNF in one-two days. Ava Banerjee MD Aug 12, 2016 11:59
[2016-08-12] MEDS: LEVOFLOXACIN 500 MG PREMIX INJ 100 ML IV SCH (15:39)
[2016-08-12] MEDS: ENOXAPARIN SODIUM 40 MG/0.4 ML SYRINGE SQ SCH (15:39)
[2016-08-12] MEDS: ACETAMINOPHEN/HYDROcodone 325 MG/5 MG TAB PO PRN ×2 (17:09→21:09)
--- NOTE | 2016-08-12 19:12 | HHI.PR ---
Subjective Remarks C/O SOB and a cough. Unable to sit up.On O2 3L. Objective Vital Signs Date Time Temp Pulse Resp B/P Pulse Ox O2 Delivery O2 Flow Rate FiO2 08/12/16 19:06 97 Nasal Cannula 2.00 08/12/16 16:48 98.7 97 19 175/69 98 08/12/16 12:46 98.0 139 19 142/115 97 08/12/16 10:07 Nasal Cannula 3.00 08/12/16 09:07 98 Nasal Cannula 2.00 08/12/16 08:39 97.6 69 21 154/92 100 08/12/16 04:00 98.0 74 22 180/79 98 08/12/16 02:58 97 35 08/12/16 00:30 96.6 75 22 155/80 100 08/11/16 23:35 96 35 08/11/16 21:00 96 35 08/11/16 20:14 99 Nasal Cannula 3.00 08/11/16 20:00 96.6 98 22 176/73 93 08/11/16 20:00 99 Nasal Cannula 3.00 I/O 08/11/16 08/11/16 08/11/16 08/12/16 08/12/16 08/12/16 07:00 15:00 23:00 07:00 15:00 23:00 Intake Total 400 ml 480 ml 300 ml 100 ml Output Total 700 ml Balance 400 ml -220 ml 300 ml 100 ml Intake Oral 400 ml 480 ml 300 ml 100 ml IV Total 0 ml Output Urine Total 700 ml # Voids 2 1 1 3 # Bowel Movements 2 2 Result Diagram: 08/12/16 0501 08/12/16 0501 Objective Remarks GENERAL: This is an obese middle-aged lady who is anxious. HEAD, EYES, EARS, NOSE, THROAT: Head normocephalic. The pupils are reactive and equal. Tongue is moist. Throat is clear. Nasal mucosa edematous. NECK: The neck is supple with no venous distention. No thyromegaly. CHEST: Equal movements with a few wheezes anteriorly. Decreased breath sounds bilaterally. HEART: Heart sounds are regular. S1 AND S2. No murmur or gallop. ABDOMEN: Abdomen soft and obese without masses. No organomegaly or tenderness. The bowel sounds are active. EXTREMITIES: Muscle wasting of the right leg and pigmentation of the skin of the lower extremities. Decreased pulses. NEUROLOGIC: No focal deficits identified. The patient is alert and talking. Assessment and Plan Assessment and Plan . IMPRESSION: 1. Acute on chronic respiratory failure, resolving. 2. COPD with acute exacerbation. 3. Obstructive sleep apnea syndrome. 4. Congestive heart failure compensated. 5. Hypertension. 6. Diabetes mellitus. 7. Rheumatoid arthritis. 8. Obesity. Plan : 1. Continue o2 at 3 L. 2. Nebs qid , duoneb. 3. Bipap at , and she may use her own CPAP machine. 4. Cont Diuretics daily. 5. Transfer to Rehab. 6. D/C solumedrol and add Prednisone 10 mg BID Yuly Finnegan MD Aug 12, 2016 19:12
[2016-08-12] MEDS: ATORVASTATIN 40 MG TAB PO SCH (20:47)
[2016-08-12] MEDS: INSULIN DETEMIR 100 UNITS/ML VIAL SQ SCH (20:59)
[2016-08-12] MEDS: predniSONE 10 MG TAB PO SCH (20:59)
[2016-08-12] MEDS ORDERED: methylPREDNISolone SOD SUCC 40 MG/1 ML VIAL IV PUSH SCH (21:00)
[2016-08-13] VITALS (8 sets, daily range): BP systolic 109–163; BP diastolic 56–78; PULSE 76–99; RESP 18–20; TEMP 97.6–98.3; O2SAT 96–100
[2016-08-13] MEDS: RESP: ALBUTEROL 2.5 MG/IPRATROPIUM 0.5 MG NEB (SCH) INH ×4 (00:26→12:54)
[2016-08-13] MEDS: CHLORHEXIDINE GLUCONATE 2 % 1 PACK (2 CLOTHS) TOP SCH (04:00)
[2016-08-13] MEDS: INSULIN NovoLIN REGULAR SUPPLEMENTAL SCALE SQ SCH ×3 (04:05→15:09)
[2016-08-13 07:27] LABS: BICARBONATE 34.6 MEQ/L (21.0-32.0); POTASSIUM 4.7 MEQ/L (3.5-5.1)
[2016-08-13] MEDS: FUROSEMIDE 20 MG TAB PO SCH (08:44)
[2016-08-13] MEDS: MULTIVITAMIN HEMATINIC THERAPEUTIC TAB PO SCH (08:44)
[2016-08-13] MEDS: PANTOPRAZOLE SOD 40 MG DELAYED RELEASE TAB PO SCH (08:45)
[2016-08-13] MEDS: SERTRALINE HCL 50 MG TAB PO SCH (08:45)
[2016-08-13] MEDS: ASCORBIC ACID 500 MG TAB PO SCH (08:45)
[2016-08-13] MEDS: FERROUS SULFATE 325 MG (65 MG ELEMENTAL IRON) TAB PO SCH (08:46)
[2016-08-13] MEDS: FOLIC ACID 1 MG TAB PO SCH (08:46)
[2016-08-13] MEDS: LOSARTAN 50 MG TAB PO SCH (08:47)
[2016-08-13] MEDS: ASPIRIN EC 81 MG TABEC PO SCH (08:49)
[2016-08-13] MEDS: METOPROLOL TARTRATE 25 MG TAB PO SCH (08:49)
[2016-08-13] MEDS: CLOPIDOGREL 75 MG TAB PO SCH (08:51)
[2016-08-13] MEDS: POLYETHYLENE GLYCOL 17 GM PKG PO SCH (08:51)
[2016-08-13] MEDS: predniSONE 10 MG TAB PO SCH (08:51)
[2016-08-13] MEDS: SILVER SULFADIAZINE 1% CR 50 GM JAR TOPICAL SCH (08:52)
[2016-08-13 09:13] LABS: MEAN CELL VOLUME 76.9 FL (80.0-100.0); MEAN CORPUSCULAR HEMOGLOBIN 23.2 PG (27.0-34.0); MEAN CORPUSCULAR HGB CONC 30.2 % (32.0-36.0); PLATELET COUNT 202 TH/MM3 (150-450); RED BLOOD COUNT 4.82 MIL/MM3 (4.00-5.30); RED CELL DISTRIBUTION WIDTH 16.1 % (11.6-17.2); REVIEW FLAG FINAL; WHITE BLOOD COUNT 8.1 TH/MM3 (4.0-11.0)
--- NOTE | 2016-08-13 12:38 | HHI.PR ---
Subjective Remarks resting comfortably with no distress. in no distress. no new complaints. Objective Vitals Vital Signs Date Time Temp Pulse Resp B/P Pulse Ox O2 Delivery O2 Flow Rate FiO2 08/13/16 12:26 98.3 76 18 145/61 97 08/13/16 08:16 100 08/13/16 08:16 99 Nasal Cannula 3.00 08/13/16 08:16 100 08/13/16 05:01 98.3 99 20 109/56 96 08/13/16 04:40 100 BiPAP 35 08/13/16 04:40 100 35 08/13/16 00:31 99 35 08/13/16 00:30 99 BiPAP 35 08/13/16 00:20 98.0 76 18 122/70 100 08/12/16 22:34 95 35 08/12/16 22:20 Bi-Pap 35 08/12/16 20:15 97.3 93 18 134/71 95 08/12/16 20:00 Nasal Cannula 2.50 08/12/16 19:06 97 Nasal Cannula 2.00 08/12/16 16:48 98.7 97 19 175/69 98 08/12/16 12:46 98.0 139 19 142/115 97 I/O 08/12/16 08/12/16 08/12/16 08/13/16 08/13/16 08/13/16 07:00 15:00 23:00 07:00 15:00 23:00 Intake Total 100 ml Balance 100 ml Intake Oral 100 ml # Voids 1 1 3 3 # Bowel Movements 2 1 Result Diagram: 08/13/16 0823 08/13/16 0633 Imaging Last Impressions Chest X-Ray 08/11/16 0000 Signed Impressions: Service Date/Time: Thursday, August 11, 2016 14:59 - CONCLUSION: No significant change. Chito Arellano MD Head CT 08/09/16 1057 Signed Impressions: Service Date/Time: Tuesday, August 09, 2016 13:05 - CONCLUSION: 1. No acute intracranial abnormality. 2. Remote right occipital/parietal lobe infarct. 3. Apparent bilateral mastoiditis in the proper clinical setting. Chito Arellano MD Objective Remarks GENERAL: obese, in no apparent distress. CARDIOVASCULAR: Regular rate and regular rhythm without murmurs, gallops, or rubs. RESPIRATORY: Clear to auscultation. Breath sounds equal bilaterally. No wheezes , rales, or rhonchi. GASTROINTESTINAL: Abdomen soft, non-tender, nondistended. Normal, active bowel sounds MUSCULOSKELETAL: Extremities without clubbing, cyanosis, or edema. NEURO: Alert & Oriented x4 to person, place, time, situation. Moves all ext x4 Procedures none Medications and IVs Current Medications IV Flush (NS Flush) 2 ml UNSCH PRN IVF FLUSH AFTER USING IV ACCESS Last administered on 08/11/16 08:25; Start 08/09/16 at 11:00 Furosemide (Lasix Inj) 40 mg ONCE ONCE IV PUSH Last administered on 08/09/16 13:28; Start 08/09/16 at 12:45; Stop 08/09/16 at 12:46; Status DC Pantoprazole Sodium (Protonix Inj) 40 mg DAILY IV Last administered on 08:24; Start 08/09/16 at 16:00; Stop 08/11/16 at 10:19; Status DC Albuterol/ Ipratropium (Duoneb Neb) 1 ampule Q4HR NEB INH Last administered on 08/13/16 08:15; Start 08/09/16 at 16:00 Albuterol/ Ipratropium (Duoneb Neb) 1 ampule Q2HR NEB PRN INH WHEEZING; Start 08/09/16 at 15:00 Enoxaparin Sodium (Lovenox Inj) 40 mg Q24H SQ Last administered on 08/12/16 15 :39; Start 08/09/16 at 16:00 Miscellaneous Information 1 [id number] XX ; Start 08/09/16 at 15:00 Chlorhexidine Gluconate (Chlorhexidine 2% Cloth) 3 pack Taper DAILY@04 TOP Last administered on 08/10/16 03:38; Start 08/10/16 at 04:00; Stop 08/06/17 at 03:59 Chlorhexidine Gluconate 3 pack 3 pack UNSCH PRN TOP HYGIENIC CARE; Start at 15:00 Levofloxacin/ Dextrose (Levaquin 500 Mg Premix Inj) 100 ml @ 100 mls/hr Q24H IV Last administered on 08/12/16 15:39; Start 08/09/16 at 16:00; Stop at 10:46; Status DC Dextrose (D50w (Vial) Inj) 25 ml UNSCH PRN IV PUSH HYPOGLYCEMIA-SEE COMMENTS; Start 08/09/16 at 15:00; Stop 08/09/16 at 15:53; Status DC Glucagon (Glucagon Inj) 1 mg UNSCH PRN OTHER HYPOGLYCEMIA-SEE COMMENTS; Start 08/09/16 at 15:00 Insulin Human Regular (NovoLIN R SUPPLEMENTAL SCALE) 1 Q6H SQ Last administered on 08/13/16 09:05; Start 08/09/16 at 15:00 Ascorbic Acid (Vitamin C) 500 mg BID PO Last administered on 08/13/16 08:45; Start 08/09/16 at 21:00 Aspirin (Ecotrin Ec) 81 mg DAILY PO Last administered on 08/13/16 08:49; Start 08/09/16 at 15:15 Atorvastatin Calcium (Lipitor) 40 mg HS PO Last administered on 08/12/16 20:47 ; Start 08/09/16 at 21:00 Clopidogrel Bisulfate (Plavix) 75 mg DAILY PO Last administered on 08/13/16 08 :51; Start 08/09/16 at 16:00 Ferrous Sulfate (Ferrous Sulfate) 325 mg BID PO Last administered on 08/13/16 08:46; Start 08/09/16 at 21:00 Folic Acid (Folate) 1 mg DAILY PO Last administered on 08/13/16 08:46; Start 08/09/16 at 15:15 Multivitamin Hematinic Therapeutic (Theragran Hematinic) 1 tab DAILY PO Last administered on 08/13/16 08:44; Start 08/09/16 at 15:15 Methylprednisolone Sodium Succinate (SoluMEDROL INJ) 40 mg Q8HR IV PUSH Last administered on 08/11/16 05:42; Start 08/09/16 at 16:00; Stop 08/11/16 at 10:14 ; Status DC Insulin Human Regular (NovoLIN R INJ) 8 units ONCE ONCE IV PUSH Last administered on 08/09/16 16:29; Start 08/09/16 at 15:15; Stop 08/09/16 at 15:59 ; Status DC Dextrose 50 ml 50 ml ONCE ONCE IV PUSH Last administered on 08/09/16 16:29; Start 08/09/16 at 15:15; Stop 08/09/16 at 15:59; Status DC Calcium Gluconate/ Sodium Chloride (Calcium Gluconate Inj/NS Inj) 110 ml @ 110 mls/hr ONCE ONCE IV Last administered on 08/09/16 16:30; Start 08/09/16 at 17 :00; Stop 08/09/16 at 17:59; Status DC Sodium Polystyrene Sulfonate (Kayexalate Liq) 15 gm ONCE ONCE PO Last administered on 08/09/16 16:29; Start 08/09/16 at 15:15; Stop 08/09/16 at 15:59 ; Status DC Acetaminophen (Tylenol) 500 mg Q6H PRN PO PAIN 1-5 Last administered on 18:00; Start 08/10/16 at 00:45 Furosemide (Lasix) 20 mg BID@09,18 PO Last administered on 08/13/16 08:44; Start 08/10/16 at 18:00 Losartan Potassium (Cozaar) 50 mg BID PO Last administered on 08/13/16 08:47; Start 08/10/16 at 21:00 Metoprolol Tartrate (Lopressor) 25 mg BID PO Last administered on 08/13/16 08: 49; Start 08/10/16 at 21:00 Polyethylene Glycol (Miralax) 17 gm DAILY PO Last administered on 08/11/16 08: 23; Start 08/10/16 at 16:15 Sertraline HCl (Zoloft) 50 mg DAILY PO Last administered on 08/13/16 08:45; Start 08/11/16 at 09:00 Silver Sulfadiazine (Silvadene 1% Cream (50 Gm)) 1 applic DAILY TOPICAL Last administered on 08/13/16 08:52; Start 08/10/16 at 17:00 Methylprednisolone Sodium Succinate (SoluMEDROL INJ) 20 mg Q8HR IV PUSH Last administered on 08/12/16 05:47; Start 08/11/16 at 14:00; Stop 08/12/16 at 12:00 ; Status DC Insulin Detemir (Levemir Inj) 17 units HS SQ Last administered on 08/12/16 20: 59; Start 08/11/16 at 21:00 Pantoprazole Sodium (Protonix) 40 mg DAILY PO Last administered on 08/13/16 08 :45; Start 08/12/16 at 09:00 Methylprednisolone Sodium Succinate (SoluMEDROL INJ) 20 mg Q12HR IV PUSH ; Start 08/12/16 at 21:00; Stop 08/12/16 at 21:00; Status DC Acetaminophen/ Hydrocodone Bitart ([place] 5-325 Mg) 1 tab Q6H PRN PO PAIN > 5 Last administered on 08/12/16 21:09; Start 08/12/16 at 14:15 Prednisone 10 mg 10 mg BID PO Last administered on 08/13/16 08:51; Start 08/12 at 21:00 Levofloxacin/ Dextrose (Levaquin 250 Mg Premix Inj) 50 ml @ 100 mls/hr Q24H IV ; Start 08/13/16 at 16:00 A/P Assessment and Plan A/P 1. Hypercarbic respiratory failure/ COPD exacerbation- improving. -- wean o2 by NC for goal spo2 > 88%; patient is oxygen-dependent. -- frequent nebs -- continue to taper down IV steroids -consulted pulmonary 2. ARSEN/OHS -- BiPAP during naps and overnight. strict. 3. COPD exacerbation -- steroids -- Levaquin -pulmonary consult 4. CHF with preserved EF -- restarted home lasix 5. Hypertension -- restarted home ARB, bblocker 6. Diabetes -resume long-acting insulin. -- SSI 7. Decubitus Ulcer -- continue SSD to wound daily 8. Depression -- restarted home SSRI -- OOB to chair to help with functionality. 9. Anxiety -- will not restart xanax as this may be exacerbating hypercarbia -- non-pharmacologic interventions including deep breathing encouraged. 10. SCDs, Lovenox for DVT prophylaxis. 11. Protonix for GI prophylaxis (home dose). consulted PT. Discharge Planning possible dc to SNF today if cleared by pulmonary. see med list. f/u; pcp and pulmonary. d/w the patient. time spent 31 min. Ava Banerjee MD Aug 13, 2016 12:38
[2016-08-13] MEDS ORDERED: OXYC-392 PO ×2 (12:43→13:29)
[2016-08-13] MEDS ORDERED: ACET500T3 PO (12:43)
[2016-08-13] MEDS ORDERED: IPRASOL INH (12:43)
[2016-08-13] MEDS ORDERED: LEVA500T PO (12:43)
[2016-08-13] MEDS ORDERED: PRED5TAB PO ×2 (12:43→13:29)
--- NOTE | 2016-08-13 12:44 | HHI.DCPOC ---
Discharge Care Plan Diagnosis: (1) COPD (chronic obstructive pulmonary disease) Your Health Problems Are: Cough Shortness of Breath Goals to Promote Your Health * To prevent worsening of your condition and complications * To maintain your health at the optimal level Directions to Meet Your Goals Take your medications as prescribed Follow your dietary instruction Follow activity as directed Keep your appointments as scheduled Take your immunizations and boosters as scheduled If your symptoms worsen call your PCP, if no PCP go to Urgent Care Center or Emergency Room Smoking is Dangerous to Your Health. Avoid second hand smoke Call the 24-hour hour crisis hotline for domestic abuse at Ava Banerjee MD Aug 13, 2016 12:43
--- NOTE | 2016-08-13 12:44 | HHI.DS ---
Discharge Summary Admission Date Aug 09, 2016 at 14:27 Discharge Date: Aug 13, 2016 Admitting Diagnosis altered mental status/hypercapnia (1) COPD (chronic obstructive pulmonary disease) ICD Code: J44.9 Diagnosis: Principal Procedures none Brief History - From Admission The patient is a 65-year-old female with multiple medical comorbidities which include congestive heart failure with preserved ejection fraction, hypertension, rheumatoid arthritis, COPD, diabetes mellitus, obstructive sleep apnea and morbid obesity. She presented to the [facility] Emergency Department from a local nursing facility with altered mental status. CBC/BMP: 08/13/16 0823 08/13/16 0633 Significant Findings Laboratory Tests Test 08/11/16 08/12/16 08/13/16 08/13/16 04:43 05:01 06:33 08:23 Hemoglobin 10.4 GM/DL 10.9 GM/DL 11.2 GM/DL (11.6-15.3) (11.6-15.3) (11.6-15.3) Hematocrit 32.9 % (35.0-46.0) Mean Corpuscular Volume 76.3 FL 76.2 FL 76.9 FL (80.0-100.0) (80.0-100.0) (80.0-100.0) Mean Corpuscular Hemoglobin 24.2 PG 23.4 PG 23.2 PG (27.0-34.0) (27.0-34.0) (27.0-34.0) Mean Corpuscular Hemoglobin 31.7 % 30.8 % 30.2 % Concent (32.0-36.0) (32.0-36.0) (32.0-36.0) Chloride Level 94 MEQ/L 93 MEQ/L 94 MEQ/L (98-107) (98-107) (98-107) Carbon Dioxide Level 34.9 MEQ/L 34.1 MEQ/L 34.6 MEQ/L (21.0-32.0) (21.0-32.0) (21.0-32.0) Blood Urea Nitrogen 25 MG/DL (7-18) 24 MG/DL (7-18) 24 MG/DL (7-18) Creatinine 1.07 MG/DL 1.04 MG/DL 1.04 MG/DL (0.50-1.00) (0.50-1.00) (0.50-1.00) Estimat Glomerular Filtration 62 ML/MIN (>89) 65 ML/MIN (>89) 65 ML/MIN (>89) Rate Random Glucose 332 MG/DL 319 MG/DL 259 MG/DL (74-106) (74-106) (74-106) Sodium Level 134 MEQ/L 135 MEQ/L (136-145) (136-145) Imaging Last Impressions Chest X-Ray 08/11/16 0000 Signed Impressions: Service Date/Time: Thursday, August 11, 2016 14:59 - CONCLUSION: No significant change. Chito Arellano MD Head CT 08/09/16 1057 Signed Impressions: Service Date/Time: Tuesday, August 09, 2016 13:05 - CONCLUSION: 1. No acute intracranial abnormality. 2. Remote right occipital/parietal lobe infarct. 3. Apparent bilateral mastoiditis in the proper clinical setting. Chito Arellano MD PE at Discharge GENERAL: obese, in no apparent distress. CARDIOVASCULAR: Regular rate and regular rhythm without murmurs, gallops, or rubs. RESPIRATORY: Clear to auscultation. Breath sounds equal bilaterally. No wheezes , rales, or rhonchi. GASTROINTESTINAL: Abdomen soft, non-tender, nondistended. Normal, active bowel sounds MUSCULOSKELETAL: Extremities without clubbing, cyanosis, or edema. NEURO: Alert & Oriented x4 to person, place, time, situation. Moves all ext x4 Hospital Course 1. Hypercarbic respiratory failure/ COPD exacerbation- improving. -- wean o2 by NC for goal spo2 > 88%; patient is oxygen-dependent. -- frequent nebs -- continue to taper down IV steroids -consulted pulmonary 2. ARSEN/OHS -- BiPAP during naps and overnight. strict. 3. COPD exacerbation -- steroids -- Levaquin -pulmonary consult 4. CHF with preserved EF -- restarted home lasix 5. Hypertension -- restarted home ARB, bblocker 6. Diabetes -resume long-acting insulin. -- SSI 7. Decubitus Ulcer -- continue SSD to wound daily 8. Depression -- restarted home SSRI -- OOB to chair to help with functionality. 9. Anxiety -- will not restart xanax as this may be exacerbating hypercarbia -- non-pharmacologic interventions including deep breathing encouraged. 10. SCDs, Lovenox for DVT prophylaxis. 11. Protonix for GI prophylaxis (home dose). consulted PT. Pt Condition on Discharge: Fair Discharge Disposition: Discharge to SNF Discharge Time: > 30 minutes Discharge Instructions DIET: Follow Instructions for: Heart Healthy Diet, Diabetic Diet Activities you can perform: Regular-No Restrictions Follow up Referrals: PCP Follow-up Pulmonology New Medications: Levofloxacin (Levaquin) 500 Mg Tab 500 MG PO DAILY Infection Days 5 Ref 0 TAB Prednisone (Prednisone) 5 Mg Tab 5 MG PO DIRECTED 20 mg po daily for two days then 10 mg po daily for two days then 5 mg po daily for two days then stop. copd #6 Ref 0 TAB Acetaminophen (Acetaminophen) 500 Mg Tab 500 MG PO Q6H PRN PAIN 1-5 #20 Ref 0 TAB Ipratropium-Albuterol Neb (Duoneb) 0.5-2.5 Mg/3 Ml Neb 1 AMPULE INH Q4HR NEB PRN SHORTNESS OF BREATH Days 14 Ref 0 ML Continued Medications: Albuterol Neb (Albuterol Neb) 2.5 Mg/3 Ml Neb 2.5 MG NEB Q2HR PRN SHORTNESS OF BREATH #1 Ref 0 NEBULE Ascorbic Acid (Vitamin C) 500 Mg Tab 500 MG PO BID Nutritional Supplement Ref [address] (Aspirin Adult Low Strength) 81 Mg Tabdr 81 MG PO DAILY TAB Atorvastatin (Atorvastatin) 40 Mg Tab 40 MG PO HS Cholesterol Management #30 Ref 0 TAB Bisacodyl Supp (Dulcolax Supp) 10 Mg Supp 10 MG MI DAILY IN THE MORNING Give if no results 1 day after Milk of Mag PRN CONSTIPATION #12 Ref 0 SUPP Clopidogrel (Plavix) 75 Mg Tab 75 MG PO DAILY Blood Clot Prevention #30 Ref 0 TAB Ferrous Sulfate (Ferrous Sulfate) 325 Mg Tab 325 MG PO BID Nutritional Supplement #30 Ref 0 TAB Fluconazole (Fluconazole) 150 Mg Tab 150 MG PO WEEKLY ON WEDNESDAYS Infection #1 Ref 0 TAB Folic Acid (Folate) 1 Mg Tab 1 MG PO DAILY Nutritional Supplement Ref 0 TAB Furosemide (Lasix) 20 Mg Tab 20 MG PO BID #60 Ref 0 TAB Insulin Aspart Inj (Novolog Inj) 100 Unit/Ml Inj 3-15 UNITS SQ ACHS Sliding Scale: if 0-150=0 units, 151-200=3 units, 201-250=5 units, 251-300=8 units, 301-350 = 10 units, 351-400=12 units, >400=15 units & call MD Insulin Detemir Inj (Levemir Inj) 1,000 unit/ 10 ML Vial 17 UNITS SQ HS Do not mix with any other Insulin. Blood Sugar Management Ref 0 VIAL Lactic Acid (Ammonium Lactate) (Lac-Hydrin) 12% Lotn 1 APPLIC TOPICAL DAILY Apply to both lower extremities every evening shift #225 Ref 0 ML Losartan (Losartan) 50 Mg Tab 50 MG PO BID Blood Pressure Management #30 Ref 0 TAB Magnesium Citrate Liq (Citroma Liq) 300 Ml Liq 296 ML PO DAILY IN THE MORNING Give if no results 1 day after fleet enema PRN CONSTIPATION #1 Ref 0 BOTTLE Magnesium Hydroxide Liq (Milk of Magnesia Liq) 400 Mg/5 Ml Susp 30 ML PO HS PRN IF NO BM IN 3 DAYS #1 Ref 0 BOTTLE Metoprolol Tartrate (Metoprolol Tartrate) 25 Mg Tab 25 MG PO BID #60 Ref 0 TAB Multiple Vitamins W/ Minerals (Multi-Vitamin/Minerals) 1 Tab Tab 1 TAB PO DAILY Nutritional Supplement Oxycodone (Oxycodone) 5 Mg Tab 5 MG PO Q4H PRN SEVERE PAIN #21 Ref 0 TAB (This prescription has been renewed) Pantoprazole (Pantoprazole) 40 Mg Tab 40 MG PO DAILY Reflux #30 Ref 0 TAB Sennosides (Senna) 8.6 Mg Cap 17.2 MG PO BID Constipation Ref 0 CAP Sertraline (Sertraline) 50 Mg Tab 50 MG PO DAILY #30 Ref 0 TAB Silver Sulfadiazine Topical (Silvadene Topical) 1 % Cream 1 APPLIC TOPICAL EACH SHIFT Apply to left gluteal after nss wash then cover w/ dsd every shift for pressure injury. Wound Management #50 Ref 0 GM Silver Sulfadiazine Topical (Silvadene Topical) 1 % Cream 1 APPLIC TOPICAL HS TO L BUTTOCK PRESSURE INJURY #50 Ref 0 GM Sitagliptin (Januvia) 50 Mg Tab 50 MG PO DAILY Blood Sugar Management #30 Ref 0 TAB Sodium Phosphates (Enema Ruels-Qr-Ddy) 1 Valentina Valentina 112 ML MI DAILY PRN IF NO BM 1 DAY AFTER SUPP Zinc Sulfate (Zinc Sulfate) 220 Mg Cap 220 MG PO DAILY Nutritional Supplement Ref 0 CAP Discontinued Medications: Acetaminophen (Tylenol Extra Strength) 500 Mg Tab 1000 MG PO TID PRN PAIN 1-10 AND/OR FEVER >101F Ref 0 TAB Alprazolam (Xanax) 0.5 Mg Tab 0.5 MG PO BID PRN ANXIETY #20 Ref 0 TAB Doxycycline Hyclate (Doxycycline Hyclate) 100 Mg Cap 100 MG PO BID Infection #20 Ref 0 CAP Polyethylene Glycol 3350 Powder (Miralax Powder) 17 Gm Powd 17 GM PO DAILY Mix and dissolve one measuring capful (17 grams) in water,juice, soda, coffee or tea Constipation #1 Ref 0 BOTTLE Additional Information wound care buttock: cleanse wounds to L buttock with normal saline or wound cleanser and apply adhesive foam dressing. Please change every other day or PRN.If wound becomes macerated, or periwound becomes denuded please leave wounds open to air and apply calazime barrier cream BID and PRN. Ava Banerjee MD Aug 13, 2016 12:44
[2016-08-13] MEDS: ENOXAPARIN SODIUM 40 MG/0.4 ML SYRINGE SQ SCH (15:08)
[2016-08-13] MEDS: ACETAMINOPHEN/HYDROcodone 325 MG/5 MG TAB PO PRN (15:13)
[2016-08-13] MEDS ORDERED: LEVOFLOXACIN 250 MG PREMIX INJ 50 ML IV SCH (16:00)
== END 2016-08-13 17:40 | DRG 189 ==
LOC: NEPE 10:19 → NEDA 14:27 → HIMN 16:35 → N05B 08-10 21:45
PROVIDERS: ADMIT Internal Medicine; ATTEND Internal Medicine
PROC: 5A09357 Assistance with Respiratory Ventilation, Less than 24 Consecutive Hours, Continuous Positive Airway Pressure (ICD-10-PCS; principal; 2016-08-09)
DX: J96.22 Acute and chronic respiratory failure with hypercapnia (principal); L89.323 Pressure ulcer of left buttock, stage 3; J44.1 Chronic obstructive pulmonary disease with (acute) exacerbation; E66.2 Morbid (severe) obesity with alveolar hypoventilation; I50.9 Heart failure, unspecified; Z68.43 Body mass index [BMI] 50.0-59.9, adult; Z99.81 Dependence on supplemental oxygen; G47.33 Obstructive sleep apnea (adult) (pediatric); E87.5 Hyperkalemia; I10 Essential (primary) hypertension; M06.9 Rheumatoid arthritis, unspecified; E11.9 Type 2 diabetes mellitus without complications; Z79.4 Long term (current) use of insulin; Z79.82 Long term (current) use of aspirin; Z79.52 Long term (current) use of systemic steroids; F32.9 Major depressive disorder, single episode, unspecified; F41.9 Anxiety disorder, unspecified; Z91.19 Patient's noncompliance with other medical treatment and regimen; E78.00 Pure hypercholesterolemia, unspecified; Z86.14 Personal history of Methicillin resistant Staphylococcus aureus infection
CPT/HCPCS: 36600; 70450; 71010; 80048; 80053; 81001; 82550; 82805; 82948; 83735; 83880; 84100; 84132; 84484; 85007; 85025; 85027; 85610; 85730; 87641; 93005; 94002; 94003; 94640; 94664; 94770; 96374; C9113; J0610; J1650; J1815; J1940; J1956; J2920; J7512; P9612

== ENCOUNTER 2016-10-26 14:19 | Emergency (ER) | payer MEDICAID ==
[~2016-10-26] VITALS: Ht 157.5 cm; Wt 135.0 kg
[~2016-10-26 14:19] MED LIST changes: -ACET-703 PO; +ACET500T3 PO; -ALPR.5 PO; -CEFU1TAB20 PO; +FLUC150T PO; +IPRASOL INH; +LEVA500T PO; -MIRA33504 PO; +OXYC-392 PO; -OXYC1CAP PO; +PANT40TA3 PO; -PRED20 PO; +PRED5TAB PO; -PROTPAK PO; +ZINC220C3 PO
[2016-10-26 14:31] VITALS: BP 111/73; PULSE 115; RESP 22; TEMP 98.4; O2SAT 94
[2016-10-26 15:25] LABS: MEAN CORPUSCULAR HGB CONC 29.9 % (32.0-36.0)
--- NOTE | 2016-10-26 15:27 | PD ---
HPI Chief Complaint: Chest Pain Time Seen by Provider: 14:30 Travel History International Travel<30 days: No Contact w/Intl Traveler<30days: No Traveled to known affect area: No History of Present Illness HPI The patient was seen and examined in the presence of the nurse. This patient complains of chest pain. Location is left upper chest. Duration one week. Severity is moderate. No alleviating factors. She says that she pushes up her torso with her left arm and may have strained her chest wall. Denies fever or cough . She is oxygen dependent and uses C Pap at night for sleep apnea. PFSH Past Medical History Arthritis: Yes (RA) Asthma: No Autoimmune Disease: No Blood Disorders: No Anxiety: Yes Depression: Yes Heart Rhythm Problems: No Cancer: No Cardiac Catheterization: Yes (JUNE 2009) Cardiovascular Problems: Yes (CHF) High Cholesterol: Yes Chemotherapy: No Chest Pain: Yes Congestive Heart Failure: Yes COPD: No Cerebrovascular Accident: No Coronary Artery Disease: Yes Diabetes: Yes Patient Takes Glucophage: No Diminished Hearing: No Diverticulitis: Yes Endocrine: Yes Gastrointestinal Disorders: Yes GERD: Yes Glaucoma: Yes Genitourinary: No Headaches: No Hepatitis: No Hiatal Hernia: No Heparin Induced Thrombocytopen: No Hypertension: Yes Immune Disorder: Yes Implanted Vascular Access Dvce: No Kidney Stones: No Medical other: Yes (ARTHRITIS) Musculoskeletal: Yes Neurologic: No Psychiatric: Yes Reproductive: No Respiratory: Yes (COPD) Migraines: No Myocardial Infarction: Yes Pneumonia: Yes Radiation Therapy: No Renal Failure: No Seizures: No Sickle Cell Disease: No Sleep Apnea: Yes Thyroid Disease: No Ulcer: No Menopausal: Yes Tubal Ligation: Yes Past Surgical History Abdominal Surgery: Yes AICD: No Appendectomy: No Arteriovenous Shunt: No Cardiac Surgery: Yes (STENTS RIGHT ILIAC ARTERY) Section: Yes Cholecystectomy: No Coronary Artery Bypass Graft: No Ear Surgery: No Endocrine Surgery: No Eye Surgery: Yes (CATARACTS) Genitourinary Surgery: No Gynecologic Surgery: Yes (PARTIAL HYSTERECTOMY, CSECTION) Hysterectomy: Yes (PARTIAL) Joint Replacement: No Neurologic Surgery: No Oral Surgery: No Pacemaker: No Thoracic Surgery: No Other Surgery: Yes (CYST REMOVED RT BREAST) Social History Alcohol Use: No Tobacco Use: No Substance Use: No Allergies-Medications (Allergen,Severity, Reaction): Coded Allergies: *MDRO Multi-Drug Resistant Organism (Verified Adverse Reaction, Unknown, MRSA, 10/26/16) MRSA PCR positive - 06/28/2015 & 06/03/16 Reported Meds & Prescriptions Reported Meds & Active Scripts Active Prednisone 5 Mg Tab 5 Mg PO DIRECTED 6 Days 20 mg po daily for two days then 10 mg po daily for two days then 5 mg po daily for two days then stop. Oxycodone (Oxycodone HCl) 5 Mg Tab 5 Mg PO Q4H PRN Levaquin (Levofloxacin) 500 Mg Tab 500 Mg PO DAILY 5 Days Duoneb (Ipratropium-Albuterol Neb) 0.5-2.5 Mg/3 Ml Neb 1 Ampule INH Q4HR NEB PRN 14 Days Acetaminophen 500 Mg Tab 500 Mg PO Q6H PRN Reported Zinc Sulfate 220 Mg Cap 220 Mg PO DAILY Silvadene Topical (Silver Sulfadiazine) 1 % Cream 1 Applic TOPICAL HS TO L BUTTOCK Pantoprazole (Pantoprazole Sodium) 40 Mg Tab 40 Mg PO DAILY Fluconazole 150 Mg Tab 150 Mg PO WEEKLY ON WEDNESDAYS Levemir Inj (Insulin Detemir) 1,000 unit/ 10 ML Vial 17 Units SQ HS Do not mix with any other Insulin. Ferrous Sulfate 325 Mg Tab 325 Mg PO BID Novolog Inj (Insulin Aspart) 100 Unit/Ml Inj 3-15 Units SQ ACHS Sliding Scale: if 0-150=0 units, 151-200=3 units, 201-250=5 units, 251-300=8 units, 301-350 = 10 units, 351-400=12 units, >400=15 units & call Vitamin C (Ascorbic Acid) 500 Mg Tab 500 Mg PO BID Lac-Hydrin (Lactic Acid (Ammonium Lactate)) 12% Lotn 1 Applic TOPICAL DAILY Apply to both lower extremities every evening shift Albuterol Neb (Albuterol Sulfate) 2.5 Mg/3 Ml Neb 2.5 Mg NEB Q2HR PRN Multi-Vitamin/Minerals (Multiple Vitamins W/ Minerals) 1 Tab Tab 1 Tab PO DAILY Dulcolax Supp (Bisacodyl) 10 Mg Supp 10 Mg CA DAILY IN THE MORNING PRN Give if no results 1 day after Milk of Mag Citroma Liq (Magnesium Citrate) 300 Ml Liq 296 Ml PO DAILY IN THE MORNING PRN Give if no results 1 day after fleet enema Milk of Magnesia Liq (Magnesium Hydroxide) 400 Mg/5 Ml Susp 30 Ml PO HS PRN Enema Wctxa-Hd-Eqo (Sodium Phosphates) 1 Valentina Valentina 112 Ml CA DAILY PRN Aspirin Adult Low Strength (Aspirin) 81 Mg Tabdr 81 Mg PO DAILY Atorvastatin (Atorvastatin Calcium) 40 Mg Tab 40 Mg PO HS Sertraline (Sertraline HCl) 50 Mg Tab 50 Mg PO DAILY Folate (Folic Acid) 1 Mg Tab 1 Mg PO DAILY Metoprolol Tartrate 25 Mg Tab 25 Mg PO BID Lasix (Furosemide) 20 Mg Tab 20 Mg PO BID Plavix (Clopidogrel Bisulfate) 75 Mg Tab 75 Mg PO DAILY Senna (Sennosides) 8.6 Mg Cap 17.2 Mg PO BID Losartan (Losartan Potassium) 50 Mg Tab 50 Mg PO BID Januvia (Sitagliptin Phosphate) 50 Mg Tab 50 Mg PO DAILY Silvadene Topical (Silver Sulfadiazine) 1 % Cream 1 Applic TOPICAL EACH SHIFT Apply to left gluteal after nss wash then cover w/dsd every shift for pressure injury. Review of Systems General / Constitutional: No: Fever Eyes: No: Visual changes HENT: No: Headaches Cardiovascular: Positive: Chest Pain or Discomfort Respiratory: No: Shortness of Breath Gastrointestinal: No: Abdominal Pain Genitourinary: No: Dysuria Musculoskeletal: No: Pain Skin: No Rash Neurologic: No: Weakness Psychiatric: No: Depression Endocrine: No: Polydipsia Hematologic/Lymphatic: No: Easy Bruising Physical Exam Narrative GENERAL: Well-nourished, well-developed patient in no apparent distress. SKIN: Focused skin assessment reveals no rash and nodules. Skin is Warm and dry. HEAD: Atraumatic. Normocephalic. EYES: Pupils equal and round. No scleral icterus. No injection or drainage. ENT: No nasal bleeding or discharge. Mucous membranes pink and moist. NECK: Trachea midline. No JVD. CARDIOVASCULAR: Regular rate and rhythm. No murmur appreciated. Heart rate is 120 RESPIRATORY: No accessory muscle use. Clear to auscultation. Breath sounds equal bilaterally. GASTROINTESTINAL: Abdomen soft, non-tender, nondistended. Hepatic and splenic margins not palpable. MUSCULOSKELETAL: No obvious deformities. No clubbing. No cyanosis. No edema. Has readily reproducible left upper chest wall tenderness there replicates her pain complaints NEUROLOGICAL: Awake and alert. has atrophied right lower leg. Motor grossly within normal limits. Normal speech. PSYCHIATRIC: Appropriate mood and affect; insight and judgment normal. 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 Operator / Telemetry ELIZ.Q8H (10/26/16 15:23) Electrocardiogram (10/26/16 ) Labs Laboratory Tests Test 10/26/16 15:55 White Blood Count 9.5 TH/MM3 Red Blood Count 4.74 MIL/MM3 Hemoglobin 11.0 GM/DL Hematocrit 37.0 % Mean Corpuscular Volume 77.9 FL Mean Corpuscular Hemoglobin 23.3 PG Mean Corpuscular Hemoglobin 29.9 % Concent Red Cell Distribution Width 15.1 % Platelet Count 275 TH/MM3 Mean Platelet Volume 9.3 FL Neutrophils (%) (Auto) 70.4 % Lymphocytes (%) (Auto) 21.2 % Monocytes (%) (Auto) 7.0 % Eosinophils (%) (Auto) 0.8 % Basophils (%) (Auto) 0.6 % Neutrophils # (Auto) 6.7 TH/MM3 Lymphocytes # (Auto) 2.0 TH/MM3 Monocytes # (Auto) 0.7 TH/MM3 Eosinophils # (Auto) 0.1 TH/MM3 Basophils # (Auto) 0.1 TH/MM3 CBC Comment DIFF FINAL Differential Comment MDM Medical Decision Making Medical Screen Exam Complete: Yes Emergency Medical Condition: Yes Medical Record Reviewed: Yes Differential Diagnosis Differential diagnosis includes [place], angina, pericarditis, pleurisy, GERD, anxiety. Narrative Course I have reviewed the patient's electronic medical record. Reviewed her most recent admission was July 2016 I reviewed her EKG which shows sinus tachycardia but no ST elevation Extended cardiac monitoring reveals sinus tachycardia with occasional ectopic beat She did receive 3 albuterol nebulizer treatments prior to arrival which likely explains her sinus tachycardia CBC reveals numbers that are her usual baseline which is hemoglobin of 11 Patient has readily reproducible chest wall tenderness which will not require urgent stress testing or inpatient evaluation. It is clearly musculoskeletal in nature. Stable for return to retirement Diagnosis Primary Impression: Musculoskeletal chest pain Additional Impressions: Tachycardia Medication side effect Qualified Code: T88.7XXA - Medication side effect, initial encounter Additional Instructions: Follow-up with [facility]/Other Pt SpecificInfo: Other Disposition: 03 DISCHARGE TO SNF Condition: Stable Kole Rowan MD October 26, 2016 15:27
[2016-10-26 16:11] LABS: AUTOMATED NEUTROPHIL # 6.7 TH/MM3 (1.8-7.7); BASOPHIL # 0.1 TH/MM3 (0-0.2); BASOPHIL % 0.6 % (0.0-2.0); EOSINOPHIL # 0.1 TH/MM3 (0-0.4); EOSINOPHIL % 0.8 % (0.0-4.0); HEMO FLAGS DIFF FINAL; LYMPH % 21.2 % (9.0-44.0); MEAN CELL VOLUME 77.9 FL (80.0-100.0); MEAN CORPUSCULAR HEMOGLOBIN 23.3 PG (27.0-34.0); NEUT % 70.4 % (16.0-70.0); PLATELET COUNT 275 TH/MM3 (150-450); RED BLOOD COUNT 4.74 MIL/MM3 (4.00-5.30); RED CELL DISTRIBUTION WIDTH 15.1 % (11.6-17.2); WHITE BLOOD COUNT 9.5 TH/MM3 (4.0-11.0)
[2016-10-26] MEDS ORDERED: NITR0.4S SL (16:53)
[2016-10-26] MEDS ORDERED: MUPI2OIN TOPICAL (16:53)
[2016-10-26] MEDS ORDERED: FURO40TA PO (16:53)
[2016-10-26] MEDS ORDERED: IPRASOL NEB (16:53)
[2016-10-26] MEDS ORDERED: VANC1INJ45 IV (16:57)
[2016-10-26] MEDS ORDERED: NORMINJ11 IV FLUSH (16:57)
--- NOTE | 2016-10-27 15:16 | EKG ---
Date Performed: 10/26/2016 Time Performed: 16:41:27 PTAGE: 65 years EKG: SINUS TACHYCARDIA WITH PACs DIFFUSED NONSPECIFIC ST-T WAVE CHANGE ATRIAL ABNORMALITY Compar ed to previous tracing, heart rate is faster, and ST-T changes are somewhat more prominent. ABNORMAL ECG PREVIOUS TRACING : 08/09/2016 12.11 DOCTOR: Wes Macias Interpretating Date/Time 10/27/2016 15:16:16
== END 2016-10-26 17:48 ==
LOC: NEPC 14:19
DX: R07.89 Other chest pain (principal); R00.0 Tachycardia, unspecified; T88.7XXA Unspecified adverse effect of drug or medicament, initial encounter; R94.31 Abnormal electrocardiogram [ECG] [EKG]; I10 Essential (primary) hypertension; E11.9 Type 2 diabetes mellitus without complications; E78.00 Pure hypercholesterolemia, unspecified; G47.30 Sleep apnea, unspecified; I25.2 Old myocardial infarction; Z79.4 Long term (current) use of insulin; Z99.81 Dependence on supplemental oxygen; Z87.39 Personal history of other diseases of the musculoskeletal system and connective tissue; Z86.79 Personal history of other diseases of the circulatory system; Z87.19 Personal history of other diseases of the digestive system; Z86.69 Personal history of other diseases of the nervous system and sense organs; Z86.2 Personal history of diseases of the blood and blood-forming organs and certain disorders involving the immune mechanism; Z86.59 Personal history of other mental and behavioral disorders
CPT/HCPCS: 85025; 93005; 99283

== ENCOUNTER 2016-11-01 12:02 | Emergency (ER) | payer MEDICAID ==
[~2016-11-01] VITALS: Ht 157.5 cm; Wt 115.0 kg
[~2016-11-01 12:02] MED LIST changes: -ACET500T3 PO; -ALBU0.08 NEB; -ASPI1TAB91 PO; -ATOR40TA16 PO; -CITRSOL4 PO; -DULC10SU3 PR; -FERR325T PO; -FLUC150T PO; -FOLI1TAB4 PO; +FURO40TA PO; -IPRASOL INH; +IPRASOL NEB; -LAC-12LO3 TOPICAL; -LEVA500T PO; -LEVEMIR SQ; -LOSA50TA PO; -METO25TA3 PO; -MILKSUS PO; -MULTTAB62 PO; +MUPI2OIN TOPICAL; +NITR0.4S SL; +NORMINJ11 IV FLUSH; -NOVOLOGSS SQ; -OXYC-392 PO; -PANT40TA3 PO; -PLAV75TA29 PO; -PRED5TAB PO; -SENN8.6C PO; -SILV1CRE20 TOPICAL; -SITA50 PO; -SODIENE9 PR; +VANC1INJ45 IV; -VITA500T PO; -ZINC220C3 PO
[2016-11-01 12:21] VITALS: BP 177/81; PULSE 83; RESP 17; TEMP 98.7; O2SAT 100
[2016-11-01 12:32] VITALS: BP 177/81; PULSE 84; O2SAT 100
[2016-11-01] MEDS ORDERED: MAPA500T PO (12:45)
[2016-11-01] MEDS ORDERED: ASCO500T PO (13:03)
[2016-11-01] MEDS ORDERED: FOLI20CA PO (13:03)
[2016-11-01] MEDS ORDERED: ASPI81CH CHEW (13:03)
[2016-11-01] MEDS ORDERED: NITR50VP SL (13:03)
[2016-11-01] MEDS ORDERED: MAGNSOL2 PO (13:03)
[2016-11-01] MEDS ORDERED: MUPI2%T TOPICAL (13:03)
[2016-11-01] MEDS ORDERED: MULTTAB62 PO (13:03)
[2016-11-01] MEDS ORDERED: ALBU0.08 NEB (13:03)
[2016-11-01] MEDS ORDERED: AMMO12CR4 TOP (13:03)
[2016-11-01] MEDS ORDERED: FERR324T4 PO (13:03)
[2016-11-01] MEDS ORDERED: CLON0.1T PO (13:03)
[2016-11-01] MEDS ORDERED: METO25TA3 PO (13:03)
[2016-11-01] MEDS ORDERED: LEVEMIR SQ (13:03)
[2016-11-01] MEDS ORDERED: ATOR40TA16 PO (13:03)
[2016-11-01] MEDS ORDERED: ALUM1SUS11 (13:03)
[2016-11-01] MEDS ORDERED: DULC10SU3 RECTAL (13:03)
[2016-11-01] MEDS ORDERED: LOSA50TA PO (13:03)
[2016-11-01] MEDS ORDERED: FLUC150T PO (13:03)
[2016-11-01] MEDS ORDERED: SITA50 PO (13:08)
[2016-11-01] MEDS ORDERED: PLAV75TA29 PO (13:08)
[2016-11-01] MEDS ORDERED: POTA10CA PO (13:08)
[2016-11-01] MEDS ORDERED: NOVOLOGP2 SQ (13:08)
[2016-11-01] MEDS ORDERED: PROT40TA PO (13:08)
[2016-11-01] MEDS ORDERED: OXYC1CAP PO (13:08)
[2016-11-01] MEDS ORDERED: ZINC220T PO (13:08)
--- NOTE | 2016-11-01 13:11 | PD ---
HPI Chief Complaint: Chest Pain Time Seen by Provider: 12:21 Travel History International Travel<30 days: No Contact w/Intl Traveler<30days: No Traveled to known affect area: No History of Present Illness HPI This patient complains about chest pain.The patient was seen and examined in the presence of the nurse. She has a left upper chest pain is aggravated when she tries to prop up her torso with her left arm. I saw her for this exact same pain 6 days ago. He is still having it. No shortness of breath or fever. Symptoms severity is moderate. PFSH Past Medical History Arthritis: Yes (RA) Asthma: No Autoimmune Disease: No Blood Disorders: No Anxiety: Yes Depression: Yes Heart Rhythm Problems: No Cancer: No Cardiac Catheterization: Yes (JUNE 2009) Cardiovascular Problems: Yes High Cholesterol: Yes Chemotherapy: No Chest Pain: Yes Congestive Heart Failure: Yes COPD: Yes Cerebrovascular Accident: No Coronary Artery Disease: Yes Diabetes: Yes Patient Takes Glucophage: No Diminished Hearing: No Diverticulitis: Yes Endocrine: Yes Gastrointestinal Disorders: Yes GERD: Yes Glaucoma: Yes Genitourinary: No Headaches: No Hepatitis: No Hiatal Hernia: No Heparin Induced Thrombocytopen: No Hypertension: Yes Immune Disorder: Yes Implanted Vascular Access Dvce: No Kidney Stones: No Medical other: Yes (PVD ) Musculoskeletal: Yes Neurologic: Yes (ENCEPHALOPATHY) Psychiatric: Yes Reproductive: No Respiratory: Yes Immunizations Current: No Migraines: No Myocardial Infarction: Yes Pneumonia: Yes Radiation Therapy: No Renal Failure: No Seizures: No Sickle Cell Disease: No Sleep Apnea: Yes Thyroid Disease: No Ulcer: No Influenza Vaccination: No ?: Not Menopausal: No Tubal Ligation: Yes Past Surgical History Abdominal Surgery: Yes AICD: No Appendectomy: No Arteriovenous Shunt: No Cardiac Surgery: Yes (STENTS RIGHT ILIAC ARTERY) Section: Yes Cholecystectomy: No Coronary Artery Bypass Graft: No Ear Surgery: No Endocrine Surgery: No Eye Surgery: Yes (CATARACTS) Genitourinary Surgery: No Gynecologic Surgery: Yes (PARTIAL HYSTERECTOMY, CSECTION) Hysterectomy: Yes (PARTIAL) Joint Replacement: No Neurologic Surgery: No Oral Surgery: No Pacemaker: No Thoracic Surgery: No Other Surgery: Yes (CYST REMOVED RT BREAST) Social History Alcohol Use: No Tobacco Use: No Substance Use: No Allergies-Medications (Allergen,Severity, Reaction): Coded Allergies: *MDRO Multi-Drug Resistant Organism (Verified Adverse Reaction, Unknown, MRSA, 10/26/16) MRSA PCR positive - 06/28/2015 & 06/03/16 Reported Meds & Prescriptions Reported Meds & Active Scripts Active Reported Multi-Vitamin/Minerals (Multiple Vitamins W/ Minerals) 1 Tab Tab PO DAILY Metoprolol Tartrate 25 Mg Tab 25 Mg PO BID Antacid Advanced Liq (Alum-Mag Hydrox-Simethicone Liq) 400-400-40 Mg/5 Ml Susp Losartan (Losartan Potassium) 50 Mg Tab 50 Mg PO BID Levemir Inj (Insulin Detemir) 1,000 unit/ 10 ML Vial 17 Units SQ BID Do not mix with any other Insulin. Ammonium Lactate (Lactic Acid) 12 % Cre 1 Applic TOP BID APPLY TO: Folic Acid 20 Mg Cap 1 Mg PO DAILY Fluconazole 150 Mg Tab 150 Mg PO Q72 Ferrous Sulfate DR (Ferrous Sulfate) 324 Mg Tabdr 324 Mg PO BID Dulcolax Supp (Bisacodyl) 10 Mg Supp 10 Mg RECTAL DAILY PRN Clonidine (Clonidine HCl) 0.1 Mg Tab 0.1 Mg PO ONCE Magnesium Citrate Liq (Magnesium Citrate) 300 Ml Liq 300 Ml PO DIRECTED Bactroban Topical (Mupirocin) 22 Gm Cream 1 Applic TOPICAL BID Atorvastatin (Atorvastatin Calcium) 40 Mg Tab 40 Mg PO HS Aspirin 81 Mg Chew 81 Mg CHEW DAILY Ascorbic Acid 500 Mg Tab 500 Mg PO BID Albuterol Neb (Albuterol Sulfate) 2.5 Mg/3 Ml Neb 2.5 Mg NEB Q2HR PRN Mapap (Acetaminophen) 500 Mg Tab 500 Mg PO Q6HR PRN Vancomycin Hydrochloride/ 1-0.9 gm/250Ml-% (Vancomycin HCl in Sodium Chlor) 1 Inj Inj 1 Gm IV Q12HR Normal Saline I.v. Flush (Sodium Chloride Flush) 0.9 % Inj 10 Ml IV FLUSH DAILY Furosemide 40 Mg Tab 40 Mg PO DAILY Duoneb (Ipratropium-Albuterol Neb) 0.5-2.5 Mg/3 Ml Neb 3 Ml NEB QID Mupirocin Topical (Mupirocin) 2 % Oint 1 Applic TOPICAL DAILY Apply to right lower leg every evening shift after Nss wash then wrap with jean Sertraline (Sertraline HCl) 50 Mg Tab 50 Mg PO DAILY Lasix (Furosemide) 20 Mg Tab 20 Mg PO DAILY IN THE EVENING Review of Systems General / Constitutional: No: Fever HENT: No: Headaches Cardiovascular: Positive: Chest Pain or Discomfort Gastrointestinal: No: Vomiting Physical Exam Narrative RESPIRATORY: Respiratory effort unlabored, no retractions or use of accessory muscles. Breath sounds are clear and symmetric. CARDIOVASCULAR: Regular rate and rhythm without murmur. Extremities showed no edema or varicosities. GASTROINTESTINAL: Abdomen soft, non-tender, nondistended. Positive bowel sounds. No hepato-splenomegaly, or palpable masses. No guarding. Muskuloskeletal: Clear-cut readily reproducible left upper chest wall pain Data Data Last Documented VS Vital Signs Date Time Temp Pulse Resp B/P Pulse Ox O2 Delivery O2 Flow Rate FiO2 11/01/16 12:32 84 177/81 100 11/01/16 12:25 Venturi Mask 10 11/01/16 12:21 98.7 17 Orders Oxycodone-Acetamin 5-325 Mg (Percocet (11/01/16 13:15) MDM Medical Decision Making Medical Screen Exam Complete: Yes Emergency Medical Condition: Yes Medical Record Reviewed: Yes Differential Diagnosis Differential diagnosis includes [place], angina, pericarditis, pleurisy, GERD, anxiety. Narrative Course I have reviewed the patient's electronic medical record. Reviewed visit from 6 days ago when she came here for the same thing I reviewed her EKG which shows sinus rhythm but no ST elevation Gave her 2 pain pills Will write her some discomfort prescription No indication for inpatient stay or stress testing for this reason Diagnosis Primary Impression: Musculoskeletal chest pain Additional Instructions: Follow-up with [facility]Other Pt SpecificInfo: Prescription(s) given Disposition: 03 DISCHARGE TO SNF Condition: Stable Kole Rowan MD Nov 01, 2016 13:11
[2016-11-01] MEDS ORDERED: TRAM50TA PO (13:12)
[2016-11-01] MEDS ORDERED: oxyCODONE/ACETAMINOPHEN 5 MG/325 MG TAB PO ONE (13:15)
[2016-11-01 14:28] VITALS: BP 172/84
--- NOTE | 2016-11-02 14:39 | EKG ---
Date Performed: 11/01/2016 Time Performed: 12:16:24 PTAGE: 65 years EKG: Sinus rhythm Diffuse nonspecific ST-T wave change Atrial abnormality Compared to previous tracing, PACs no longer present, otherwise no significant change ABNORMAL ECG PREVIOUS TRACING : 10/26/2016 16.41 DOCTOR: Wes Macias Interpretating Date/Time 11/02/2016 14:38:04
== END 2016-11-01 16:26 ==
LOC: NEPC 12:02 → NEDAMB 16:26
DX: R07.89 Other chest pain (principal)
CPT/HCPCS: 93005; 99285

== ENCOUNTER 2017-04-16 16:40 | Observation (INO) | payer MEDICARE, MEDICAID ==
[~2017-04-16] VITALS: Ht 157.5 cm; Wt 125.0 kg
[~2017-04-16 16:40] MED LIST changes: +ALBU0.08 NEB; +ALUM1SUS11; +AMMO12CR4 TOP; +ASCO500T PO; +ASPI-516 PO; +ATOR40TA16 PO; +CLON0.1T PO; +DULC10SU3 RECTAL; +FERR324T4 PO; +FLUC150T PO; +FOLI20CA PO; +LEVEMIR SQ; +LOSA50TA PO; +MAGNSOL2 PO; +MAPA500T PO; +METO25TA3 PO; +MULTTAB62 PO; +MUPI2%T TOPICAL; -MUPI2OIN TOPICAL; -NITR0.4S SL; +NOVOLOGP2 SQ; +OXYC1CAP PO; +PLAV75TA29 PO; +POTA10CA PO; +PROT40TA PO; +SITA50 PO; +TRAM50TA PO; +ZINC220T PO
[2017-04-16] MEDS ORDERED: IOHEXOL 350 MG/ML 10 ML VIAL (for RAD DIAG) IVCONTRAST ONE (16:41)
[2017-04-16 16:49] VITALS: BP 176/81; PULSE 94; RESP 19; TEMP 98.7
[2017-04-16] MEDS ORDERED: SODIUM CHLORIDE 0.9% FLUSH 10 ML FLUSH IVF PRN (17:00)
[2017-04-16] MEDS ORDERED: ASPIRIN 81 MG CHEW TAB CHEW ONE (17:00)
--- NOTE | 2017-04-16 17:06 | PD ---
HPI Chief Complaint: Chest Pain Time Seen by Provider: 16:59 Travel History International Travel<30 days: No Contact w/Intl Traveler<30days: No Traveled to known affect area: No History of Present Illness HPI 66-year-old female presents to the emergency department via EMS from [facility] for evaluation of left-sided chest pain. Patient has multiple medical comorbidities which include congestive heart failure with preserved ejection fraction, anxiety, hypertension, rheumatoid arthritis, COPD, diabetes mellitus, obstructive sleep apnea and morbid obesity. Patient has been having left-sided chest pain for several months. However, she states it worsened in the past 3 days. She states she had a referral to see a charter and tour bus driver, but do not see one due to money issues. Patient states she had a stress test several years ago, but none recently. Patient denies any recent cardiac catheterization. Patient states the pain is tight in nature. No radiation the pain. She states that laying flat will make the pain worse. Taking her oxycodone will improve the pain. She was given nitroglycerin 1 by EMS which took her pain from 8/10 to a 0/10. Patient states she is having chronic headaches, but not new. Severity is moderate. Patient states sitting up at the edge of her bed will actually improve her pain. PFSH Past Medical History Hx Anticoagulant Therapy: Yes (PLAVIX) Arthritis: Yes (RA) Asthma: No Autoimmune Disease: No Blood Disorders: No Anxiety: Yes Depression: Yes Heart Rhythm Problems: No Cancer: No Cardiac Catheterization: Yes (JUNE 2009) Cardiovascular Problems: Yes (CHF) High Cholesterol: Yes Chemotherapy: No Chest Pain: Yes Congestive Heart Failure: Yes COPD: Yes Cerebrovascular Accident: No Coronary Artery Disease: Yes Diabetes: Yes (TYPE II) Diminished Hearing: No Diverticulitis: Yes Endocrine: Yes Gastrointestinal Disorders: Yes GERD: Yes Glaucoma: Yes Genitourinary: No Headaches: No Hepatitis: No Hiatal Hernia: No Heparin Induced Thrombocytopen: No Hypertension: Yes Immune Disorder: Yes Implanted Vascular Access Dvce: No Kidney Stones: No Musculoskeletal: Yes Neurologic: Yes (ENCEPHALOPATHY) Psychiatric: Yes Reproductive: No Respiratory: Yes (COPD) Immunizations Current: No Migraines: No Myocardial Infarction: Yes Pneumonia: Yes Radiation Therapy: No Renal Failure: No Seizures: No Sickle Cell Disease: No Sleep Apnea: Yes Thyroid Disease: No Ulcer: No Menopausal: No Tubal Ligation: Yes Past Surgical History Abdominal Surgery: Yes AICD: No Appendectomy: No Arteriovenous Shunt: No Cardiac Surgery: Yes (STENTS RIGHT ILIAC ARTERY) Section: Yes Cholecystectomy: No Coronary Artery Bypass Graft: No Ear Surgery: No Endocrine Surgery: No Eye Surgery: Yes (CATARACTS) Genitourinary Surgery: No Gynecologic Surgery: Yes (PARTIAL HYSTERECTOMY, CSECTION) Hysterectomy: Yes Joint Replacement: No Neurologic Surgery: No Oral Surgery: No Pacemaker: No Thoracic Surgery: No Other Surgery: Yes (CYST REMOVED RT BREAST) Social History Alcohol Use: No Tobacco Use: No Substance Use: No Allergies-Medications (Allergen,Severity, Reaction): Coded Allergies: *MDRO Multi-Drug Resistant Organism (Verified Adverse Reaction, Unknown, MRSA, 04/16/17) MRSA PCR positive - 06/28/2015 & 06/03/16 Reported Meds & Prescriptions Reported Meds & Active Scripts Active Tramadol (Tramadol HCl) 50 Mg Tab 50 Mg PO Q6H PRN Reported Artificial Tears (Dextran 70/Hypromellose) 1 Each Droperette 2 Drop EACH EYE Q4HR PRN Milk of Magnesia Liq (Magnesium Hydroxide) 400 Mg/5 Ml Susp 30 Ml PO HS PRN Ativan (Lorazepam) 0.5 Mg Tab 0.5 Mg PO Q8H PRN Ibuprofen 800 Mg Tab 800 Mg PO Q6HR PRN Enema Disposable (Sodium Phosphates) 19 Gram-7 Gram/118 Ml Valentina 1 Applic OK PRN Sodium Chloride Flush (Sodium Chloride) 0.9 % Inj 10 Ml IV FLUSH Q8HR 10ml IV every shift to maintain patency of PICC line-D/C when PICC line removed Silvadene Topical (Silver Sulfadiazine) 1 % Cream 1 Applic TOPICAL Q8HR Apply to coccyx/gluteal cleft every shift for pressure Zantac (Ranitidine HCl) 150 Mg Tab 150 Mg PO BID Acidophilus Probiotic (Lactobacillus) 100 Mg (1 Billion Cell) Cap 1 Cap PO BID Magnesium Oxide 400 Mg Tab 400 Mg PO DAILY Lantus Inj (Insulin Glargine) 1,000 Unit/10 Ml Vial 10 Units SQ HS Dulcolax DR (Bisacodyl) 5 Mg Tabdr 5 Mg PO DAILY 4 Days Folic Acid 1 Mg Tablet 1 Mg PO DAILY Ferrousul (Ferrous Sulfate) 325 Mg (65 Mg Iron) Tab 325 Mg PO DAILY Tylenol (Acetaminophen) 325 Mg Tab 650 Mg PO Q4H PRN Zoloft (Sertraline HCl) 100 Mg Tab 100 Mg PO DAILY Furosemide 40 Mg Tab 40 Mg PO DAILY Januvia (Sitagliptin Phosphate) 50 Mg Tab 50 Mg PO DAILY Potassium Chloride ER (Potassium Chloride) 10 Meq Cap 10 Meq PO DAILY Novolog Inj (Insulin Aspart) 1,000 Unit/10 Ml Vial 0 SQ DIRECTED Sliding Scale as directed. Oxycodone (Oxycodone HCl) 5 Mg Cap 5 Mg PO Q4H PRN Plavix (Clopidogrel Bisulfate) 75 Mg Tab 75 Mg PO DAILY Multi-Vitamin/Minerals (Multiple Vitamins W/ Minerals) 1 Tab Tab 1 Tab PO DAILY Dulcolax Supp (Bisacodyl) 10 Mg Supp 10 Mg RECTAL DAILY PRN Magnesium Citrate Liq (Magnesium Citrate) 300 Ml Liq 296 Ml PO IN THE AM PRN Atorvastatin (Atorvastatin Calcium) 40 Mg Tab 40 Mg PO HS Aspirin 81 Mg Chew 81 Mg PO DAILY Duoneb (Ipratropium-Albuterol Neb) 0.5-2.5 Mg/3 Ml Neb 3 Ml NEB BID Review of Systems Except as stated in HPI: all other systems reviewed are Neg Physical Exam Narrative GENERAL: Well-nourished, well-developed morbidly obese female patient, afebrile. SKIN: Focused skin assessment warm/dry. Patient has chronic wounds to the right lower extremity. These do not look acutely infected. Patient has PICC line to the left upper arm. HEAD: Normocephalic. Atraumatic. EYES: No scleral icterus. No injection or drainage. NECK: Supple, trachea midline. No JVD or lymphadenopathy. CARDIOVASCULAR: Regular rate and rhythm without murmurs, gallops, or rubs. Bilateral radial pulses 2+. They sent RESPIRATORY: Breath sounds equal bilaterally. No accessory muscle use. GASTROINTESTINAL: Abdomen soft, non-tender, nondistended. MUSCULOSKELETAL: No cyanosis, or edema. BACK: Nontender without obvious deformity. No CVA tenderness. Data Data Last Documented VS Vital Signs Date Time Temp Pulse Resp B/P (MAP) Pulse Ox O2 Delivery O2 Flow Rate FiO2 04/16/17 19:21 Room Air 04/16/17 19:21 107 20 145/96 (112) 96 4.00 04/16/17 16:49 98.7 Orders Orders Electrocardiogram (04/16/17 16:58) Basic Metabolic Panel (Bmp) (04/16/17 16:58) Ckmb (Isoenzyme) Profile (04/16/17 16:58) Complete Blood Count With Diff (04/16/17 16:58) Magnesium (Mg) (04/16/17 16:58) Prothrombin Time / Inr (Pt) (04/16/17 16:58) Act Partial Throm Time (Ptt) (04/16/17 16:58) Troponin I (04/16/17 16:58) Chest, Single Ap (04/16/17 16:58) Ecg Monitoring (04/16/17 16:58) Bilateral Bp Monitoring (04/16/17 16:58) Iv Access Insert/Monitor (04/16/17 16:58) Oximetry (04/16/17 16:58) Oxygen Administration (04/16/17 16:58) Sodium Chloride 0.9% Flush (Ns Flush) (04/16/17 17:00) Aspirin Chew (Aspirin Chew) (04/16/17 17:00) Ct Pulmonary Angiogram (04/16/17 ) Oxycodone (Roxicodone) (04/16/17 18:30) Iohexol 350 Inj (Omnipaque 350 Inj) (04/16/17 16:41) Admit Order (Ed Use Only) (04/16/17 20:49) Labs Laboratory Tests Test 04/16/17 17:00 White Blood Count 7.7 TH/MM3 Red Blood Count 4.78 MIL/MM3 Hemoglobin 10.8 GM/DL Hematocrit 36.3 % Mean Corpuscular Volume 76.0 FL Mean Corpuscular Hemoglobin 22.6 PG Mean Corpuscular Hemoglobin Concent 29.8 % Red Cell Distribution Width 16.5 % Platelet Count 282 TH/MM3 Mean Platelet Volume 8.5 FL Neutrophils (%) (Auto) 77.8 % Lymphocytes (%) (Auto) 12.1 % Monocytes (%) (Auto) 8.0 % Eosinophils (%) (Auto) 1.5 % Basophils (%) (Auto) 0.6 % Neutrophils # (Auto) 6.0 TH/MM3 Lymphocytes # (Auto) 0.9 TH/MM3 Monocytes # (Auto) 0.6 TH/MM3 Eosinophils # (Auto) 0.1 TH/MM3 Basophils # (Auto) 0.0 TH/MM3 CBC Comment DIFF FINAL Differential Comment Prothrombin Time 10.7 SEC Prothromb Time International Ratio 1.0 RATIO Activated Partial Thromboplast Time 26.1 SEC Blood Urea Nitrogen 23 MG/DL Creatinine 0.84 MG/DL Random Glucose 267 MG/DL Calcium Level 8.6 MG/DL Magnesium Level 2.1 MG/DL Sodium Level 136 MEQ/L Potassium Level 4.1 MEQ/L Chloride Level 98 MEQ/L Carbon Dioxide Level 31.7 MEQ/L Anion Gap 6 MEQ/L Estimat Glomerular Filtration Rate 82 ML/MIN Total Creatine Kinase 51 U/L Troponin I LESS THAN 0.02 NG/ML MDM Medical Decision Making Medical Screen Exam Complete: Yes Emergency Medical Condition: Yes Medical Record Reviewed: Yes Interpretation(s) Last Impressions Chest X-Ray 04/16/17 1658 Signed Impressions: Service Date/Time: Sunday, April 16, 2017 17:10 - CONCLUSION: Significant cardiomegaly without failure. Alex Arthur MD FACR CT Angiography 04/16/17 0000 Signed Impressions: Service Date/Time: Sunday, April 16, 2017 19:17 - CONCLUSION: 1. No pulmonary embolus. 2. Suspected bilateral areas of atelectasis. Chito Church MD Differential Diagnosis ACS versus chest wall pain versus anxiety versus CHF versus PE Narrative Course 66-year-old female presents to the emergency department for evaluation of left- sided chest pain that worsened the past [address] depression in V3, V4, V5. CBC, BMP, magnesium, CK, troponin, PTT, PT/INR are ordered and pending. Chest x-ray is ordered and pending. CBC shows no acute abnormality. BMP shows no acute abnormality. Magnesium is 2.1. CK is 51. Troponin is less than 0.02. Coags are unremarkable. Chest x- ray shows significant cardiomegaly without failure. CT pulmonary angiogram is ordered due to tachycardia, immobility. It shows no pulmonary embolus; Suspected bilateral areas of atelectasis. Due to multiple comorbidities, I will admit the patient for chest pain, rule out CO. [facility] is paged for admission. Dr. Erazo accepted admission. Diagnosis Primary Impression: Chest pain Qualified Codes: R07.9 - Chest pain, unspecified Admitting Information Admitting Physician Requests: Citlali Azar Apr 16, 2017 17:06
[2017-04-16 17:14] VITALS: RESP 18; O2SAT 97
[2017-04-16 17:36] LABS: BASOPHIL % 0.6 % (0.0-2.0); EOSINOPHIL # 0.1 TH/MM3 (0-0.4); EOSINOPHIL % 1.5 % (0.0-4.0); HEMATOCRIT 36.3 % (35.0-46.0); HEMO FLAGS DIFF FINAL; LYMPH % 12.1 % (9.0-44.0); LYMPHOCYTE # 0.9 TH/MM3 (1.0-4.8); MEAN CORPUSCULAR HEMOGLOBIN 22.6 PG (27.0-34.0); NEUT % 77.8 % (16.0-70.0); PLATELET COUNT 282 TH/MM3 (150-450); RED BLOOD COUNT 4.78 MIL/MM3 (4.00-5.30); RED CELL DISTRIBUTION WIDTH 16.5 % (11.6-17.2); WHITE BLOOD COUNT 7.7 TH/MM3 (4.0-11.0)
[2017-04-16 17:45] LABS: APTT (PATIENT) 26.1 SEC (24.3-30.1); PROTHROMBIN TIME - PATIENT 10.7 SEC (9.8-11.6)
--- NOTE | 2017-04-16 17:45 | RADRPT ---
EXAM DATE/TIME: 04/16/2017 17:10 [facility] COMPARISON: CHEST SINGLE AP, August 11, 2016, 14:59. INDICATIONS : Chest pain. MEDICAL HISTORY : Congestive heart failure. SURGICAL HISTORY : None. ENCOUNTER: Initial ACUITY: 1 day PAIN SCORE: 5/10 LOCATION: Bilateral chest FINDINGS: Significant cardiomegaly with mild failure. Negative for pneumothorax or infiltrate. The portion of the bony skeleton visualized is unremarkable. CONCLUSION: Significant cardiomegaly without failure. Alex Arthur MD FACR on April 16, 2017 at 17:43 Board Certified Radiologist. This report was verified electronically.
[2017-04-16 17:54] LABS: MEAN CORPUSCULAR HGB CONC 29.8 % (32.0-36.0)
[2017-04-16 18:02] LABS: ANION GAP 6 MEQ/L (5-15); BICARBONATE 31.7 MEQ/L (21.0-32.0); BLOOD UREA NITROGEN 23 MG/DL (7-18); CHLORIDE 98 MEQ/L (98-107); GLOMERULAR FILTRATION RATE 82 ML/MIN (>89); MAGNESIUM 2.1 MG/DL (1.5-2.5); POTASSIUM 4.1 MEQ/L (3.5-5.1); SODIUM (NA) 136 MEQ/L (136-145)
[2017-04-16] MEDS ORDERED: DULC5TAB PO (18:06)
[2017-04-16] MEDS ORDERED: MAGN400T2 PO (18:06)
[2017-04-16] MEDS ORDERED: ENEMENE5 PR (18:06)
[2017-04-16] MEDS ORDERED: MILKSUS PO (18:06)
[2017-04-16] MEDS ORDERED: LANTUS2P SQ (18:06)
[2017-04-16] MEDS ORDERED: SILV1CRE20 TOPICAL (18:06)
[2017-04-16] MEDS ORDERED: LORA-392 PO (18:06)
[2017-04-16] MEDS ORDERED: FOLI1TAB6 PO (18:06)
[2017-04-16] MEDS ORDERED: ZANT150T2 PO (18:06)
[2017-04-16] MEDS ORDERED: IBUP1TAB7 PO (18:06)
[2017-04-16] MEDS ORDERED: FURO40TA PO (18:06)
[2017-04-16] MEDS ORDERED: SODI0.9I29 IV FLUSH (18:06)
[2017-04-16] MEDS ORDERED: FERR325T86 PO (18:06)
[2017-04-16] MEDS ORDERED: ZOLO100T PO (18:06)
[2017-04-16] MEDS ORDERED: ARTISOL3 EACH EYE (18:06)
[2017-04-16] MEDS ORDERED: ACID100C PO (18:06)
[2017-04-16] MEDS ORDERED: TYLE325T PO (18:06)
[2017-04-16 18:14] LABS: CREATINE KINASE 51 U/L (26-192)
[2017-04-16 19:21] VITALS: BP 145/96; PULSE 107; RESP 20; O2SAT 96
--- NOTE | 2017-04-16 20:31 | RADRPT ---
EXAM DATE/TIME: 04/16/2017 19:17 [facility] COMPARISON: No previous studies available for comparison. INDICATIONS : Short of breath. IV CONTRAST: 74 cc Omnipaque 350 (iohexol) IV RADIATION DOSE: 26.16 CTDIvol (mGy) MEDICAL HISTORY : Cardiovascular disease. Hypertension. Chronic obstructive pulmonary disease.Diabetes II SURGICAL HISTORY : Hysterectomy. Tubal ligation. ENCOUNTER: Initial ACUITY: 1 day PAIN SCALE: 4/10 LOCATION: Bilateral chest TECHNIQUE: Volumetric scanning of the chest was performed using a pulmonary embolism protocol MIP images were re constructed. Using automated exposure control and adjustment of the mA and/or kV according to patien t size, radiation dose was kept as low as reasonably achievable to obtain optimal diagnostic quality images. DICOM format image data is available electronically for review and comparison. Follow-up recommendations for detected pulmonary nodules are based at a minimum on nodule size and pa tient risk factors according to Fleischner Society Guidelines. FINDINGS: PULMONARY ARTERIES: No filling defects are seen in the pulmonary arteries through the segmental level. LUNGS: There is increased density seen adjacent to the major fissures bilaterally likely related to atelecta sis. PLEURAE: There is no pleural thickening or pleural effusion. MEDIASTINUM: There is good visualization of the great vessels of the middle mediastinum. No evidence of mediastin al or hilar adenopathy/mass. Coronary artery calcifications are present. MUSCULOSKELETAL: Within normal limits for patient age. MISCELLANEOUS: The visualized upper abdominal organs demonstrate no acute abnormality. CONCLUSION: 1. No pulmonary embolus. 2. Suspected bilateral areas of atelectasis. Chito Church MD on April 16, 2017 at 20:27 Board Certified Radiologist. This report was verified electronically.
[2017-04-16] MEDS ORDERED: MAGNESIUM HYDROXIDE SUSP 30 ML CUP PO PRN (23:30)
[2017-04-16] MEDS ORDERED: MORPHINE SULFATE 4 MG/ML INJ IV PUSH PRN (23:30)
[2017-04-16] MEDS ORDERED: BISACODYL 10 MG SUPP RECTAL PRN (23:30)
[2017-04-16] MEDS ORDERED: SODIUM CHLORIDE 0.9% FLUSH 10 ML FLUSH IV FLUSH PRN (23:30)
--- NOTE | 2017-04-16 23:40 | HHI.HP ---
[facility] Service [facility] Primary Care Physician No Primary Care Physician Admission Diagnosis chest pain Diagnoses: Travel History International Travel<30 Days: No Contact w/Intl Traveler <30 Da: No Traveled to Known Affected Are: No History of Present Illness 66-year-old female with a past medical history of CHF (last echo done 06/2016 showed normal EF), hypertension, rheumatoid arthritis, COPD, diabetes mellitus, IDDM and obstructive sleep apnea presents with a several month history of worsening chest pain. The patient was brought via EMS from [facility] for the evaluation of worsening left-sided chest pain that increased in severity this morning. The patient states she has been having chest pain for months. This morning her pain was worse, 10/10, nonradiating and stabbing. She had accompanying shortness of breath. She has a referral to a purification director, however has not seen one due to money issues. The patient was given nitroglycerin 1 by EMS which alleviated her pain. She reports the pain is worse when she is lying down and relieved when she sits up. EKG significant for ST depression in leads V3 through V5, unchanged from previous EKG in October of this year. Initial troponin negative. CTA was ordered for tachycardia and shortness of breath, negative for PE. Review of Systems Denies fever or chills Denies blurry vision, otorrhea, rhinorrhea Denies sore throat and cough Positive chest pain and shortness of breath No abdominal pain Denies constipation/diarrhea/nausea/vomiting Chronic muscle pain No rashes Past Family Social History Past Medical History CHF with preserved EF Hypertension Rheumatoid arthritis COPD Diabetes mellitus ARSEN Past Surgical History Stents right iliac artery Cataract surgery Partial hysterectomy Allergies: Coded Allergies: *MDRO Multi-Drug Resistant Organism (Verified Adverse Reaction, Unknown, MRSA, 04/16/17) MRSA PCR positive - 06/28/2015 & 06/03/16 Family History 20 pack year history of smoking, quit 7 years ago. Denies alcohol or illicit drugs. Physical Exam Vital Signs Vital Signs Date Time Temp Pulse Resp B/P (MAP) Pulse Ox O2 Delivery O2 Flow Rate FiO2 04/16/17 22:35 04/16/17 19:21 Room Air 04/16/17 19:21 107 20 145/96 (112) 96 Nasal Cannula 4.00 04/16/17 17:18 97 Nasal Cannula 2.00 04/16/17 17:14 97 Nasal Cannula 2.00 04/16/17 17:14 18 97 Nasal Cannula 2.00 04/16/17 16:49 98.7 94 19 176/81 (112) Physical Exam GENERAL: Obese, female sitting up in bed SKIN: Right lower extremity forearm measuring approximately 3 cm on randolph. No surrounding erythema, induration or drainage. HEAD: Atraumatic. Normocephalic. No temporal or scalp tenderness. EYES: Pupils equal round and reactive. Extraocular motions intact. No scleral icterus. No injection or drainage. ENT: Nose without bleeding, purulent drainage or septal hematoma. Throat without erythema, tonsillar hypertrophy or exudate. Uvula midline. Airway patent. NECK: Trachea midline. No JVD or lymphadenopathy. Supple, nontender, no meningeal signs. CARDIOVASCULAR: Regular rate and rhythm without murmurs, gallops, or rubs. CHEST: Reproducible pain with palpation on anterior wall of left chest. RESPIRATORY: Clear to auscultation. Breath sounds equal bilaterally. No wheezes , rales, or rhonchi. GASTROINTESTINAL: Abdomen soft, non-tender, nondistended. No guarding. MUSCULOSKELETAL: Extremities without clubbing, cyanosis, or edema. No joint tenderness, effusion, or edema noted. No calf tenderness. Negative Homans sign bilaterally. Right lower extremity noted to have significant atrophy with ulceration as documented above. NEUROLOGICAL: Awake and alert. Cranial nerves II through XII intact. Motor and sensory grossly within normal limits. Normal speech. Laboratory Laboratory Tests Test 04/16/17 17:00 White Blood Count 7.7 Red Blood Count 4.78 Hemoglobin 10.8 Hematocrit 36.3 Mean Corpuscular Volume 76.0 Mean Corpuscular Hemoglobin 22.6 Mean Corpuscular Hemoglobin Concent 29.8 Red Cell Distribution Width 16.5 Platelet Count 282 Mean Platelet Volume 8.5 Neutrophils (%) (Auto) 77.8 Lymphocytes (%) (Auto) 12.1 Monocytes (%) (Auto) 8.0 Eosinophils (%) (Auto) 1.5 Basophils (%) (Auto) 0.6 Neutrophils # (Auto) 6.0 Lymphocytes # (Auto) 0.9 Monocytes # (Auto) 0.6 Eosinophils # (Auto) 0.1 Basophils # (Auto) 0.0 CBC Comment DIFF FINAL Differential Comment Prothrombin Time 10.7 Prothromb Time International Ratio 1.0 Activated Partial Thromboplast Time 26.1 Blood Urea Nitrogen 23 Creatinine 0.84 Random Glucose 267 Calcium Level 8.6 Magnesium Level 2.1 Sodium Level 136 Potassium Level 4.1 Chloride Level 98 Carbon Dioxide Level 31.7 Anion Gap 6 Estimat Glomerular Filtration Rate 82 Total Creatine Kinase 51 Troponin I LESS THAN 0.02 Result Diagram: 04/16/17169904/16/171699 Caprini VTE Risk Assessment Caprini VTE Risk Assessment: Mod/High Risk (score >= 2) Caprini Risk Assessment Model Point Value = 1 Point Value = 2 Point Value = 3 Point Value = 5 Age 41-60 Minor surgery BMI > 25 kg/m2 Swollen legs Varicose veins or History of unexplained or recurrent spontaneous Oral contraceptives or hormone replacement Sepsis (< 1 month) Serious lung disease, including pneumonia (< 1 month) Abnormal pulmonary function Acute myocardial infarction Congestive heart failure (< 1 month) History of inflammatory bowel disease Medical patient at bed rest Age 61-74 Arthroscopic surgery Major open surgery (> 45 min) Laparoscopic surgery (> 45 min) Malignancy Confined to bed (> 72 hours) Immobilizing plaster cast Central venous access Age >= 75 History of VTE Family history of VTE Factor V Leiden Prothrombin [id number] Lupus anticoagulant Anticardiolipin antibodies Elevated serum homocysteine Heparin-induced thrombocytopenia Other congenital or acquired thrombophilia Stroke (< 1 month) Elective arthroplasty Hip, pelvis, or leg fracture Acute spinal cord injury (< 1 month) Prophylaxis Regimen Total Risk Factor Score Risk Level Prophylaxis Regimen 0-1 Low Early ambulation 2 Moderate Order ONE of the following: *Sequential Compression Device (SCD) *Heparin 5000 units SQ BID 3-4 Higher Order ONE of the following medications: *Heparin 5000 units SQ TID *Enoxaparin/Lovenox 40 mg SQ daily (WT < 150 kg, CrCl > 30 mL/min) *Enoxaparin/Lovenox 30 mg SQ daily (WT < 150 kg, CrCl > 10-29 mL/min) *Enoxaparin/Lovenox 30 mg SQ BID (WT < 150 kg, CrCl > 30 mL/min) AND/OR *Sequential Compression Device (SCD) 5 or more Highest Order ONE of the following medications: *Heparin 5000 units SQ TID (Preferred with Epidurals) *Enoxaparin/Lovenox 40 mg SQ daily (WT < 150 kg, CrCl > 30 mL/min) *Enoxaparin/Lovenox 30 mg SQ daily (WT < 150 kg, CrCl > 10-29 mL/min) *Enoxaparin/Lovenox 30 mg SQ BID (WT < 150 kg, CrCl > 30 mL/min) AND *Sequential Compression Device (SCD) Assessment and Plan Assessment and Plan 66-year-old morbidly obese female with past medical history significant for insulin-dependent diabetes mellitus, ARSEN, CHF, hypertension, COPD and rheumatoid arthritis presents with acutely worsening left sided chest pain and accompanying shortness of breath. 1. Chest pain/shortness of breath CTA negative for PE Chest pain reproducible on physical exam - suspect costochondritis EKG significant for ST segment depressions in V3 through V5, images reviewed by me, unchanged from EKG in October Last echo done in June 2016 showed preserved ejection fraction with CHF Initial troponin negative ACS rule out with serial troponins/EKGs Patient will benefit from an outpatient cardiology follow-up, she reports she has the referral but has not gone secondary to financial constraints 2. CHF BNP pending Chest x-ray showed significant cardiomegaly without failure, reviewed by me Continue home medications 3. Insulin-dependent diabetes mellitus Continue Lantus SSI 4. COPD/HTN/HLD/PAD Continue home medications FEN Heart healthy diet Electrolytes: monitor and replete prn Heparin Evangelina Erazo MD Apr 16, 2017 23:40
[2017-04-16] MEDS ORDERED: GLUCAGON 1 MG/ML VIAL OTHER PRN (23:45)
[2017-04-16] MEDS ORDERED: DEXTROSE 50% IN WATER 50 ML VIAL(D50) IV PUSH PRN (23:45)
[2017-04-16] MEDS: NITROGLYCERIN 0.4 MG SL 25 TABS/BTL SL PRN (23:47)
[2017-04-16] MEDS: HEPARIN SODIUM - SQ 10,000 UNITS/ML VIAL SQ SCH (23:49)
[2017-04-17] VITALS (10 sets, daily range): BP systolic 127–150; BP diastolic 58–67; PULSE 84–95; RESP 18–20; TEMP 96.2–97.8; O2SAT 90–100
[2017-04-17 03:35] LABS: POTASSIUM 3.8 MEQ/L (3.5-5.1)
[2017-04-17] MEDS ORDERED: HEPARIN-D5W 25,000 U/250 ML 250 ML IV PRN (07:00)
[2017-04-17] MEDS: MORPHINE SULFATE 2 MG/ML INJ IV PUSH PRN ×2 (07:01)
[2017-04-17] MEDS: NITROGLYCERIN 0.4 MG SL 25 TABS/BTL SL PRN (07:01)
[2017-04-17 08:00] LABS: INTERNATIONAL NORMALIZED RATIO 1.1 RATIO; PROTHROMBIN TIME - PATIENT 11.7 SEC (9.8-11.6)
[2017-04-17] MEDS: HEPARIN SODIUM - SQ 10,000 UNITS/ML VIAL SQ SCH (08:00)
[2017-04-17] MEDS ORDERED: RESP: ALBUTEROL 2.5 MG/IPRATROPIUM 0.5 MG NEB (SCH) NEB (08:00)
[2017-04-17] MEDS ORDERED: CLOPIDOGREL 75 MG TAB PO SCH (09:00)
[2017-04-17] MEDS ORDERED: FUROSEMIDE 40 MG TAB PO SCH (09:00)
[2017-04-17] MEDS ORDERED: SODIUM CHLORIDE 0.9% FLUSH 10 ML FLUSH IV FLUSH SCH (09:00)
[2017-04-17] MEDS ORDERED: POTASSIUM CHLORIDE 10 MEQ CAP PO SCH (09:00)
[2017-04-17] MEDS ORDERED: FERROUS SULFATE 325 MG (65 MG ELEMENTAL IRON) TAB PO SCH (09:00)
[2017-04-17] MEDS ORDERED: SERTRALINE HCL 100 MG TAB PO SCH (09:00)
[2017-04-17] MEDS ORDERED: BISACODYL EC 5 MG TABEC PO SCH (09:00)
[2017-04-17] MEDS ORDERED: FAMOTIDINE 20 MG TAB PO SCH (09:00)
[2017-04-17] MEDS ORDERED: MAGNESIUM OXIDE 400 MG TAB PO SCH (09:00)
[2017-04-17] MEDS ORDERED: ASPIRIN 81 MG CHEW TAB PO SCH (09:00)
[2017-04-17 09:59] LABS: HEMATOCRIT 36.3 % (35.0-46.0); MEAN CORPUSCULAR HEMOGLOBIN 22.7 PG (27.0-34.0); PLATELET COUNT 267 TH/MM3 (150-450); RED BLOOD COUNT 4.78 MIL/MM3 (4.00-5.30); RED CELL DISTRIBUTION WIDTH 16.9 % (11.6-17.2); REVIEW FLAG FINAL; WHITE BLOOD COUNT 6.7 TH/MM3 (4.0-11.0)
[2017-04-17] MEDS: INSULIN ASPART SUPPLEMENTAL SCALE SQ SCH ×3 (10:00→17:00)
[2017-04-17 10:08] LABS: MEAN CORPUSCULAR HGB CONC 29.9 % (32.0-36.0)
--- NOTE | 2017-04-17 10:16 | PD.CONS ---
HPI Consult Requested By Primary Care Physician No Primary Care Physician History of Present Illness 66-year-old female with a past medical history hypertension, rheumatoid arthritis, COPD, diabetes mellitus, IDDM, morbid obesity and obstructive sleep apnea presents with a several month history of worsening SOB and atypical chest pain/pleuritic. Her metallographic technician is Dr. Connolly and she follows with [facility]. The patient was brought via EMS from [facility] for the evaluation of worsening left-sided chest pain that increased in severity this morning. The patient states she has been having chest pain for months associated with SOB. She has a referral to a metallographic technician, however has not seen one due to money issues. The patient was given nitroglycerin 1 by EMS which alleviated her pain. She reports the pain is worse when she is lying down and relieved when she sits up. EKG unchanged from previous EKG in October of this year. Initial troponin negative. CTA was ordered for tachycardia and shortness of breath, negative for PE. Review of Systems Consitutional: DENIES: Fatigue, Fever, Chills, Weight gain, Weight loss Eyes: DENIES: Amaurosis Fugax, Change in vision Respiratory: COMPLAINS OF: See HPI, Shortness of breath, DENIES: Cough, Snoring , Wheezing, Sputum production Cardiovascular: COMPLAINS OF: See HPI, Chest pain, DENIES: Palpitations, Syncope, Tachycardia Gastrointestinal: DENIES: Nausea, Vomiting, Change in bowel habits, Reflux, Bloody stools, Melena Genitourinary: DENIES: Urinary incontinence, Difficulty voiding Integumentary: DENIES: Rash Neurologic: DENIES: Tingling or numbness, Memory problems, Poor Balance, Stroke symptoms Musculoskeletal: DENIES: Joint pain, Muscle pain, Limited range of motion, Back pain Psychiatric: DENIES: Anxiety, Depression, Sleep disturbances Hematologic: DENIES: Bruising tendencies, Bleeding tendencies Endocrine: DENIES: Weight gain, Weight loss, Thyroid disease Past Family Social History Allergies: Coded Allergies: *MDRO Multi-Drug Resistant Organism (Verified Adverse Reaction, Unknown, MRSA, 04/16/17) MRSA PCR positive - 06/28/2015 & 06/03/16 Past Medical History CHF with preserved EF Hypertension Rheumatoid arthritis COPD Diabetes mellitus ARSEN Past Surgical History Stents right iliac artery Cataract surgery Partial hysterectomy Reported Medications Reported Meds & Active Scripts Active Tramadol (Tramadol HCl) 50 Mg Tab 50 Mg PO Q6H PRN Reported Artificial Tears (Dextran 70/Hypromellose) 1 Each Droperette 2 Drop EACH EYE Q4HR PRN Milk of Magnesia Liq (Magnesium Hydroxide) 400 Mg/5 Ml Susp 30 Ml PO HS PRN Ativan (Lorazepam) 0.5 Mg Tab 0.5 Mg PO Q8H PRN Ibuprofen 800 Mg Tab 800 Mg PO Q6HR PRN Enema Disposable (Sodium Phosphates) 19 Gram-7 Gram/118 Ml Valentina 1 Applic [place] PRN Sodium Chloride Flush (Sodium Chloride) 0.9 % Inj 10 Ml IV FLUSH Q8HR 10ml IV every shift to maintain patency of PICC line-D/C when PICC line removed Silvadene Topical (Silver Sulfadiazine) 1 % Cream 1 Applic TOPICAL Q8HR Apply to coccyx/gluteal cleft every shift for pressure Zantac (Ranitidine HCl) 150 Mg Tab 150 Mg PO BID Acidophilus Probiotic (Lactobacillus) 100 Mg (1 Billion Cell) Cap 1 Cap PO BID Magnesium Oxide 400 Mg Tab 400 Mg PO DAILY Lantus Inj (Insulin Glargine) 1,000 Unit/10 Ml Vial 10 Units SQ HS Dulcolax DR (Bisacodyl) 5 Mg Tabdr 5 Mg PO DAILY 4 Days Folic Acid 1 Mg Tablet 1 Mg PO DAILY Ferrousul (Ferrous Sulfate) 325 Mg (65 Mg Iron) Tab 325 Mg PO DAILY Tylenol (Acetaminophen) 325 Mg Tab 650 Mg PO Q4H PRN Zoloft (Sertraline HCl) 100 Mg Tab 100 Mg PO DAILY Furosemide 40 Mg Tab 40 Mg PO DAILY Januvia (Sitagliptin Phosphate) 50 Mg Tab 50 Mg PO DAILY Potassium Chloride ER (Potassium Chloride) 10 Meq Cap 10 Meq PO DAILY Novolog Inj (Insulin Aspart) 1,000 Unit/10 Ml Vial 0 SQ DIRECTED Sliding Scale as directed. Oxycodone (Oxycodone HCl) 5 Mg Cap 5 Mg PO Q4H PRN Plavix (Clopidogrel Bisulfate) 75 Mg Tab 75 Mg PO DAILY Multi-Vitamin/Minerals (Multiple Vitamins W/ Minerals) 1 Tab Tab 1 Tab PO DAILY Dulcolax Supp (Bisacodyl) 10 Mg Supp 10 Mg RECTAL DAILY PRN Magnesium Citrate Liq (Magnesium Citrate) 300 Ml Liq 296 Ml PO IN THE AM PRN Atorvastatin (Atorvastatin Calcium) 40 Mg Tab 40 Mg PO HS Aspirin 81 Mg Chew 81 Mg PO DAILY Duoneb (Ipratropium-Albuterol Neb) 0.5-2.5 Mg/3 Ml Neb 3 Ml NEB BID Active Ordered Medications Current Medications Medications (Trade) Dose Ordered Sig/Giovanna Route Start Time Stop Time Status Last Admin (NS Flush) 2 ml BID IV FLUSH 04/17/17 09:00 (NS Flush) 2 ml UNSCH PRN IV FLUSH 04/16/17 23:30 (Nitrostat Sl) 0.4 mg Q5M PRN SL 04/16/17 23:30 04/17/17 07:01 (Aspirin Chew) 81 mg DAILY PO 04/17/17 09:00 (Lipitor) 40 mg HS PO 04/17/17 21:00 (Dulcolax Ec) 5 mg DAILY PO 04/17/17 09:00 (Dulcolax Supp) 10 mg DAILY PRN RECTAL 04/16/17 23:30 (Plavix) 75 mg DAILY PO 04/17/17 09:00 (Ferrous Sulfate) 325 mg DAILY PO 04/17/17 09:00 (Lasix) 40 mg DAILY PO 04/17/17 09:00 (Levemir Inj) 10 units HS SQ 04/17/17 21:00 (Duoneb Neb) 1 ampule BID NEB NEB 04/17/17 08:00 (Milk Of Magnesia Liq) 30 ml HS PRN PO 04/16/17 23:30 (Mag-Ox) 400 mg DAILY PO 04/17/17 09:00 (Roxicodone) 5 mg Q4H PRN PO 04/16/17 23:30 04/17/17 02:41 (KCl) 10 meq DAILY PO 04/17/17 09:00 (Zoloft) 100 mg DAILY PO 04/17/17 09:00 (Pepcid) 20 mg BID PO 04/17/17 09:00 (D50w (Vial) Inj) 50 ml UNSCH PRN IV PUSH 04/16/17 23:45 (Glucagon Inj) 1 mg UNSCH PRN OTHER 04/16/17 23:45 (NovoLOG SUPPLEMENTAL SCALE) 1 ACHS SLIDING SCALE SQ 04/17/17 08:00 (Morphine Inj) 2 mg Q30M PRN IV PUSH 04/16/17 23:45 04/17/17 07:01 (Januvia) 50 mg DAILY PO 04/17/17 09:00 Heparin Sodium/ Dextrose 250 ml @ 10 mls/hr TITRATE PRN IV 04/17/17 07:00 04/17/17 08:43 Social History 20 pack year history of smoking, quit 7 years ago. Denies alcohol or illicit drugs. Physical Exam Vital Signs Vital Signs Date Time Temp Pulse Resp B/P (MAP) Pulse Ox O2 Delivery O2 Flow Rate FiO2 04/17/17 08:30 97.4 84 18 150/67 (94) 97 04/17/17 04:48 96.2 87 18 136/63 (87) 97 04/17/17 04:05 84 04/17/17 00:30 98 40 04/17/17 00:11 17 04/17/17 00:02 90 04/17/17 00:00 98 40 04/16/17 23:54 18 04/16/17 22:35 04/16/17 19:21 Room Air 04/16/17 19:21 107 20 145/96 (112) 96 Nasal Cannula 4.00 04/16/17 17:18 97 Nasal Cannula 2.00 04/16/17 17:14 97 Nasal Cannula 2.00 04/16/17 17:14 18 97 Nasal Cannula 2.00 04/16/17 16:49 98.7 94 19 176/81 (112) Physical Exam GENERAL: Well-nourished, well-developed patient. SKIN: Warm and dry. HEAD: Normocephalic. EYES: No scleral icterus. No injection or drainage. NECK: Supple, trachea midline. No JVD or lymphadenopathy. CARDIOVASCULAR: Regular rate and rhythm without murmurs, gallops, or rubs. RESPIRATORY: Breath sounds equal bilaterally. No accessory muscle use. GASTROINTESTINAL: Abdomen soft, non-tender, nondistended. EXTREMITIES: No cyanosis, or edema. NEUROLOGICAL: Awake, alert, and oriented x 3. Non-focal. Laboratory Laboratory Tests Test 04/16/17 17:00 04/17/17 02:31 04/17/17 07:42 04/17/17 09:14 White Blood Count 7.7 Red Blood Count 4.78 Hemoglobin 10.8 Hematocrit 36.3 Mean Corpuscular Volume 76.0 Mean Corpuscular Hemoglobin 22.6 Mean Corpuscular Hemoglobin Concent 29.8 Red Cell Distribution Width 16.5 Platelet Count 282 Mean Platelet Volume 8.5 Neutrophils (%) (Auto) 77.8 Lymphocytes (%) (Auto) 12.1 Monocytes (%) (Auto) 8.0 Eosinophils (%) (Auto) 1.5 Basophils (%) (Auto) 0.6 Neutrophils # (Auto) 6.0 Lymphocytes # (Auto) 0.9 Monocytes # (Auto) 0.6 Eosinophils # (Auto) 0.1 Basophils # (Auto) 0.0 CBC Comment DIFF FINAL Differential Comment Prothrombin Time 10.7 11.7 Prothromb Time International Ratio 1.0 1.1 Activated Partial Thromboplast Time 26.1 26.0 Blood Urea Nitrogen 23 18 Creatinine 0.84 0.71 Random Glucose 267 182 Calcium Level 8.6 8.4 Magnesium Level 2.1 Sodium Level 136 139 Potassium Level 4.1 3.8 Chloride Level 98 99 Carbon Dioxide Level 31.7 36.0 Anion Gap 6 4 Estimat Glomerular Filtration Rate 82 100 Total Creatine Kinase 51 44 41 Troponin I LESS THAN 0.02 0.11 0.08 Result Diagram: 04/16/17 1700 04/17/17 0231 Imaging Last Impressions Chest X-Ray 04/16/17 1658 Signed Impressions: Service Date/Time: Sunday, April 16, 2017 17:10 - CONCLUSION: Significant cardiomegaly without failure. Alex Arthur MD FACR CT Angiography 04/16/17 0000 Signed Impressions: Service Date/Time: Sunday, April 16, 2017 19:17 - CONCLUSION: 1. No pulmonary embolus. 2. Suspected bilateral areas of atelectasis. Chito Church MD Assessment and Plan Problem List: (1) Chest pain ICD Codes: R07.9 - Chest pain Status: Acute Plan: Atypical chest pain/pleuritic in nature. Minimally elevated troponin. EKG unchanged from previous. Plan: Aggressive medical management for CAD with ASA, BB, ACEi, statins and long acting nitrates Medical Tx for HTN, DM, HLD COPD management Weight loss/exercise education F/U with her metallographic technician upon discharge (2) CHF (congestive heart failure) ICD Codes: I50.9 - CHF (congestive heart failure) Status: Chronic (3) Coronary artery disease ICD Codes: I25.10 - Atherosclerotic heart disease of [place] coronary artery without angina pectoris Status: Chronic (4) Diabetes ICD Codes: E11.9 - Diabetes Status: Chronic (5) Morbid obesity ICD Codes: E66.01 - Morbid obesity Status: Chronic Problem Qualifiers (1) Chest pain: Qualified Codes: R07.9 - Chest pain, unspecified Cash Jamison MD Apr 17, 2017 10:16
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
[2017-04-17] MEDS ORDERED: LISINOPRIL 5 MG TAB PO SCH (14:00)
--- NOTE | 2017-04-17 14:16 | HHI.PR ---
Subjective Remarks Follow-up chest pain. No further chest pain. Cardiology recommended aggressive medical management. Discussed with RN Objective Vitals Vital Signs Date Time Temp Pulse Resp B/P (MAP) Pulse Ox O2 Delivery O2 Flow Rate FiO2 04/17/17 12:18 97.8 95 20 139/58 (85) 90 04/17/17 10:20 100 Nasal Cannula 4.00 04/17/17 08:30 97.4 84 18 150/67 (94) 97 04/17/17 04:48 96.2 87 18 136/63 (87) 97 04/17/17 04:05 84 04/17/17 00:30 98 40 04/17/17 00:11 17 04/17/17 00:02 90 04/17/17 00:00 98 40 04/16/17 23:54 18 04/16/17 22:35 04/16/17 19:21 Room Air 04/16/17 19:21 107 20 145/96 (112) 96 Nasal Cannula 4.00 04/16/17 17:18 97 Nasal Cannula 2.00 04/16/17 17:14 97 Nasal Cannula 2.00 04/16/17 17:14 18 97 Nasal Cannula 2.00 04/16/17 16:49 98.7 94 19 176/81 (112) I/O 04/16/17 04/16/17 04/16/17 04/17/17 04/17/17 04/17/17 07:00 15:00 23:00 07:00 15:00 23:00 Intake Total 720 ml Balance 720 ml Intake Oral 720 ml # Voids 1 Result Diagram: 04/17/17 0914 04/17/17 0231 Imaging Last Impressions Chest X-Ray 04/16/17 1658 Signed Impressions: Service Date/Time: Sunday, April 16, 2017 17:10 - CONCLUSION: Significant cardiomegaly without failure. Alex Arthur MD FACR CT Angiography 04/16/17 0000 Signed Impressions: Service Date/Time: Sunday, April 16, 2017 19:17 - CONCLUSION: 1. No pulmonary embolus. 2. Suspected bilateral areas of atelectasis. Chito Church MD Objective Remarks GENERAL: Obese, female in no distress SKIN: Right lower extremity forearm measuring approximately 3 cm on randolph. No surrounding erythema, induration or drainage. CARDIOVASCULAR: Regular rate and rhythm without murmurs, gallops, or rubs. CHEST: Reproducible pain with palpation on anterior wall of left chest. RESPIRATORY: Clear to auscultation. Breath sounds equal bilaterally. No wheezes , rales, or rhonchi. GASTROINTESTINAL: Abdomen soft, non-tender, nondistended. No guarding. MUSCULOSKELETAL: Extremities without clubbing, cyanosis, or edema. No joint tenderness, effusion, or edema noted. No calf tenderness. Negative Homans sign bilaterally. Right lower extremity noted to have significant atrophy with ulceration NEUROLOGICAL: Awake and alert. Cranial nerves II through XII intact. Motor and sensory grossly within normal limits. Normal speech. A/P Problem List: (1) Chest pain ICD Code: R07.9 - Chest pain Status: Acute Assessment and Plan 66-year-old morbidly obese female with past medical history significant for insulin-dependent diabetes mellitus, ARSEN, CHF, hypertension, COPD and rheumatoid arthritis presents with acutely worsening left sided chest pain and accompanying shortness of breath. 1. Atypical Chest pain/shortness of breath CTA negative for PE Chest pain reproducible on physical exam - suspect costochondritis EKG significant for ST segment depressions in inferior leads, V3 through V5, images reviewed by me, unchanged from EKG in October Last echo done in June 2016 showed preserved ejection fraction with CHF Mild troponin bump. Cardiology recommends aggressive treatment with ASA, BB, ACEi, statins and long acting nitrates. Will not start beta true secondary to significant COPD Weight loss/exercise education F/U with her poke in upon discharge 2. Chronic systolic CHF. Patient will be on Naresh inhibitor. Will not start beta true because of COPD BNP pending Chest x-ray showed significant cardiomegaly without failure, reviewed by me Continue home medications 3. Insulin-dependent diabetes mellitus Continue Lantus SSI 4. COPD/HTN/HLD/PAD Continue home medications FEN Heart healthy diet Electrolytes: monitor and replete prn Heparin Discharge Planning Discharge patient to SNF Condition on discharge: Improved Regular Diet as tolerated Ad Nallely activity no driving Rx written: Imdur and lisinopril Follow-up with primary care physician and cardiology Problem Qualifiers (1) Chest pain: Qualified Codes: R07.9 - Chest pain, unspecified Boone Garcias MD Apr 17, 2017 14:16
[2017-04-17 14:28] LABS: APTT (PATIENT) 50.8 SEC (24.3-30.1)
[2017-04-17] MEDS ORDERED: LISI-519 PO (14:28)
[2017-04-17] MEDS ORDERED: LAC-LOT2 TOPICAL (14:28)
[2017-04-17] MEDS ORDERED: [UNRECOGNIZED DRUG - OTHER] TOPICAL (14:28)
[2017-04-17] MEDS ORDERED: ISOS30TA3 PO (14:28)
--- NOTE | 2017-04-17 14:30 | HHI.DCPOC ---
Discharge Care Plan Diagnosis: (1) CHF (congestive heart failure) (2) Diabetes (3) Morbid obesity (4) Coronary artery disease (5) Chest pain (6) COPD (chronic obstructive pulmonary disease) (7) Decubitus skin ulcer Goals to Promote Your Health * To prevent worsening of your condition and complications * To maintain your health at the optimal level Directions to Meet Your Goals Take your medications as prescribed Follow your dietary instruction Follow activity as directed Keep your appointments as scheduled Take your immunizations and boosters as scheduled If your symptoms worsen call your PCP, if no PCP go to Urgent Care Center or Emergency Room Smoking is Dangerous to Your Health. Avoid second hand smoke Call the 24-hour hour crisis hotline for domestic abuse at Tala Flower PA-C Apr 17, 2017 2:30 pm
--- NOTE | 2017-04-17 16:22 | EKG ---
Date Performed: 04/16/2017 Time Performed: 23:47:03 PTAGE: 66 years EKG: Sinus rhythm POSSIBLE LEFT ATRIAL ENLARGEMENT ST DEVIATION AND MODERATE T-WAVE ABNORMALITY, CONSIDER ANTEROLATERA L ISCHEMIA ABNORMAL ECG PREVIOUS TRACING : 04/16/2017 16.56 Compared to prior tracing no significant change DOCTOR: Parisa Yeager Interpretating Date/Time 04/17/2017 16:21:18
--- NOTE | 2017-04-17 16:22 | EKG ---
Date Performed: 04/16/2017 Time Performed: 16:56:35 PTAGE: 66 years EKG: SINUS TACHYCARDIA LEFT ATRIAL ENLARGEMENT ST DEVIATION AND MODERATE T-WAVE ABNORMALITY, CON COMMISSARY ASSISTANT ANTERIOR ISCHEMIA ABNORMAL ECG INTERPRETATION BASED ON A DEFAULT AGE OF 40 YEARS PREVIOUS TRACING : 11/01/2016 12.16 Compared to prior tracing no significant change DOCTOR: Parisa Yeager Interpretating Date/Time 04/17/2017 16:21:03
[2017-04-17] MEDS ORDERED: INSULIN DETEMIR 100 UNITS/ML VIAL SQ SCH (21:00)
[2017-04-17] MEDS ORDERED: ATORVASTATIN 40 MG TAB PO SCH (21:00)
[2017-04-17] MEDS ORDERED: HEPARIN SODIUM - SQ 10,000 UNITS/ML VIAL SQ SCH (22:00)
[2017-04-18] MEDS ORDERED: ISOSORBIDE MONONITRATE 30 MG TAB PO SCH (07:00)
== END 2017-04-17 22:38 | disposition home or self-care (01) ==
LOC: NEPE 16:40 → NEDA 20:50 → NEPGCP 22:43
PROVIDERS: ADMIT Hospitalist; ATTEND Hospitalist
DX: R07.89 Other chest pain (principal); R06.02 Shortness of breath; R00.0 Tachycardia, unspecified; R94.31 Abnormal electrocardiogram [ECG] [EKG]; L89.899 Pressure ulcer of other site, unspecified stage; R74.8 Abnormal levels of other serum enzymes; R51 Headache; I25.10 Atherosclerotic heart disease of native coronary artery without angina pectoris; I11.0 Hypertensive heart disease with heart failure; I50.42 Chronic combined systolic (congestive) and diastolic (congestive) heart failure; J44.9 Chronic obstructive pulmonary disease, unspecified; E78.5 Hyperlipidemia, unspecified; E78.00 Pure hypercholesterolemia, unspecified; I25.2 Old myocardial infarction; E11.51 Type 2 diabetes mellitus with diabetic peripheral angiopathy without gangrene; I73.9 Peripheral vascular disease, unspecified; K21.9 Gastro-esophageal reflux disease without esophagitis; M06.9 Rheumatoid arthritis, unspecified; G47.33 Obstructive sleep apnea (adult) (pediatric); H40.9 Unspecified glaucoma; F41.9 Anxiety disorder, unspecified; F32.9 Major depressive disorder, single episode, unspecified; E66.01 Morbid (severe) obesity due to excess calories; Z79.4 Long term (current) use of insulin; Z87.891 Personal history of nicotine dependence; Z79.899 Other long term (current) drug therapy; Z79.82 Long term (current) use of aspirin
CPT/HCPCS: 71010; 71275; 80048; 82550; 82948; 83735; 84484; 85025; 85027; 85610; 85730; 93005; 94002; 94664; 96365; 96372; 96375; 96376; 99285; G0378; J1644; J1815; J2270; Q9967

== ENCOUNTER 2017-05-18 14:19 | Emergency (ER) | payer MEDICARE, MEDICAID ==
[~2017-05-18] VITALS: Ht 142.2 cm; Wt 130.0 kg
[~2017-05-18 14:19] MED LIST changes: +ACID100C PO; -ALBU0.08 NEB; -ALUM1SUS11; -AMMO12CR4 TOP; +ARTISOL3 EACH EYE; -ASCO500T PO; -CLON0.1T PO; +ENEMENE5 PR; -FERR324T4 PO; +FERR325T86 PO; -FLUC150T PO; +FOLI1TAB6 PO; -FOLI20CA PO; -FURO1TAB62 PO; +ISOS30TA3 PO; +LAC-LOT2 TOPICAL; +LANTUS2P SQ; -LEVEMIR SQ; +LISI-519 PO; +LORA-392 PO; -LOSA50TA PO; +MAGN400T2 PO; -MAPA500T PO; -METO25TA3 PO; +MILKSUS PO; -MUPI2%T TOPICAL; -NORMINJ11 IV FLUSH; -PROT40TA PO; -SERT-132 PO; +SODI0.9I29 IV FLUSH; -TRAM50TA PO; +TYLE325T PO; -VANC1INJ45 IV; +ZANT150T2 PO; -ZINC220T PO; +ZOLO100T PO; +[UNRECOGNIZED DRUG - OTHER] TOPICAL
[2017-05-18 15:00] VITALS: BP 129/73; PULSE 112; RESP 20; TEMP 98.5; O2SAT 94
--- NOTE | 2017-05-18 15:19 | PD ---
HPI Chief Complaint: Cardiac Complaint Time Seen by Provider: 15:08 Travel History International Travel<30 days: No Contact w/Intl Traveler<30days: No Traveled to known affect area: No History of Present Illness HPI Chronically ill 66-year-old woman presents to the emergency department with multiple complaints including chest pain times months, rating her left arm, as well as feeling very sleepy, and feeling generally sick. Multiple recent admissions for chest pain. Recent cardiology consultation. Multiple comorbidities including severe obesity, CHF, COPD, chronic oxygen dependency. She reports that the chest pains been intermittent little but worse. She also reports that she's been very very sleepy recently whenever she wakes up after sleeping she feels ill. History Past Medical History Narrative Medical CHF with preserved EF Hypertension Rheumatoid arthritis COPD Diabetes mellitus ARSEN PVD Anxiety Menopausal: No Social History Alcohol Use: No Tobacco Use: No Allergies-Medications (Allergen,Severity, Reaction): Coded Allergies: *MDRO Multi-Drug Resistant Organism (Verified Adverse Reaction, Unknown, MRSA, 05/18/17) MRSA PCR positive - 06/28/2015 & 06/03/16 Reported Meds & Prescriptions Reported Meds & Active Scripts Active Calazime Skin Protectant/ (Skin Protectants, Misc.) 3.5 %-0.2 %-69 %-16.5 % Pst 1 Applic TOPICAL BID Apply to bilateral inner thighs, perineal, vulva, and bilateral groin BID after cleaning with soap, water, and pat dry Lisinopril 5 Mg Tab 5 Mg PO DAILY Isosorbide Mononitrate ER (Isosorbide Mononitrate) 30 Mg Refugio 30 Mg PO DAILY@07 Reported Artificial Tears (Dextran 70/Hypromellose) 1 Each Droperette 2 Drop EACH EYE Q4HR PRN Milk of Magnesia Liq (Magnesium Hydroxide) 400 Mg/5 Ml Susp 30 Ml PO HS PRN Ativan (Lorazepam) 0.5 Mg Tab 0.5 Mg PO Q8H PRN Sodium Chloride Flush (Sodium Chloride) 0.9 % Inj 10 Ml IV FLUSH Q8HR 10ml IV every shift to maintain patency of PICC line-D/C when PICC line removed Zantac (Ranitidine HCl) 150 Mg Tab 150 Mg PO BID Acidophilus Probiotic (Lactobacillus) 100 Mg (1 Billion Cell) Cap 1 Cap PO BID Magnesium Oxide 400 Mg Tab 400 Mg PO DAILY Lantus Inj (Insulin Glargine) 1,000 Unit/10 Ml Vial 10 Units SQ HS Folic Acid 1 Mg Tablet 1 Mg PO DAILY Ferrousul (Ferrous Sulfate) 325 Mg (65 Mg Iron) Tab 325 Mg PO DAILY Tylenol (Acetaminophen) 325 Mg Tab 650 Mg PO Q4H PRN Zoloft (Sertraline HCl) 100 Mg Tab 100 Mg PO DAILY Furosemide 40 Mg Tab 40 Mg PO DAILY Potassium Chloride ER (Potassium Chloride) 10 Meq Cap 10 Meq PO DAILY Novolog Inj (Insulin Aspart) 1,000 Unit/10 Ml Vial 10 SQ DAILY Sliding Scale as directed. Plavix (Clopidogrel Bisulfate) 75 Mg Tab 75 Mg PO DAILY Multi-Vitamin/Minerals (Multiple Vitamins W/ Minerals) 1 Tab Tab 1 Tab PO DAILY Dulcolax Supp (Bisacodyl) 10 Mg Supp 10 Mg RECTAL DAILY PRN Magnesium Citrate Liq (Magnesium Citrate) 300 Ml Liq 296 Ml PO IN THE AM PRN Atorvastatin (Atorvastatin Calcium) 40 Mg Tab 40 Mg PO HS Aspirin 81 Mg Chew 81 Mg PO DAILY Duoneb (Ipratropium-Albuterol Neb) 0.5-2.5 Mg/3 Ml Neb 3 Ml NEB BID Review of Systems Except as stated in HPI: all other systems reviewed are Neg Physical Exam Narrative GENERAL: Obese 66-year-old woman, nontoxic. SKIN: Focused skin assessment warm/dry. Small sacral decubitus ulcers. Wounds on her right lower extremity as well. HEAD: Atraumatic. Normocephalic. EYES: Pupils equal and round. No scleral icterus. No injection or drainage. ENT: No nasal bleeding or discharge. Mucous membranes pink and moist. NECK: Trachea midline. No JVD. CARDIOVASCULAR: Regular rate and rhythm. No murmur appreciated. RESPIRATORY: No accessory muscle use. Clear to auscultation. Breath sounds equal bilaterally. GASTROINTESTINAL: Abdomen soft, non-tender, nondistended. Hepatic and splenic margins not palpable. MUSCULOSKELETAL: Obvious deformity with small atrophic right lower extremity. NEUROLOGICAL: Awake and alert. No obvious cranial nerve deficits. Motor grossly within normal limits. Normal speech. PSYCHIATRIC: Appropriate mood and affect; insight and judgment normal. Data Data Last Documented VS Vital Signs Date Time Temp Pulse Resp B/P (MAP) Pulse Ox O2 Delivery O2 Flow Rate FiO2 05/18/17 15:00 110 20 96 Nasal Cannula 3.00 05/18/17 15:00 98.5 129/73 (91) Orders Orders Electrocardiogram (05/18/17 ) Complete Blood Count With Diff (05/18/17 15:08) Comprehensive Metabolic Panel (05/18/17 15:08) Troponin I (05/18/17 15:08) Urinalysis - C+S If Indicated (05/18/17 15:08) Cath For Specimen (05/18/17 15:08) Chest, Single Ap (05/18/17 ) Urine Culture (05/18/17 14:10) Labs Laboratory Tests Test 05/18/17 14:10 05/18/17 15:16 Urine Color LIGHT-YELLOW Urine Turbidity CLEAR Urine pH 5.5 Urine Specific [place] 1.007 Urine Protein NEG mg/dL Urine Glucose (UA) NEG mg/dL Urine Ketones NEG mg/dL Urine Occult Blood SMALL Urine Nitrite NEG Urine Bilirubin NEG Urine Urobilinogen LESS THAN 2.0 MG/DL Urine Leukocyte Esterase LARGE Urine RBC 1 /hpf Urine WBC 13 /hpf Urine Squamous Epithelial Cells 1 /hpf Urine Bacteria FEW /hpf Urine Hyaline Casts 6 /lpf Urine Mucus FEW /lpf Microscopic Urinalysis Comment CATH-CULTURE IND White Blood Count 7.4 TH/MM3 Red Blood Count 4.69 MIL/MM3 Hemoglobin 10.6 GM/DL Hematocrit 36.0 % Mean Corpuscular Volume 76.8 FL Mean Corpuscular Hemoglobin 22.7 PG Mean Corpuscular Hemoglobin Concent 29.5 % Red Cell Distribution Width 16.4 % Platelet Count 287 TH/MM3 Mean Platelet Volume 8.4 FL Neutrophils (%) (Auto) 75.5 % Lymphocytes (%) (Auto) 15.6 % Monocytes (%) (Auto) 7.3 % Eosinophils (%) (Auto) 1.0 % Basophils (%) (Auto) 0.6 % Neutrophils # (Auto) 5.6 TH/MM3 Lymphocytes # (Auto) 1.2 TH/MM3 Monocytes # (Auto) 0.5 TH/MM3 Eosinophils # (Auto) 0.1 TH/MM3 Basophils # (Auto) 0.0 TH/MM3 CBC Comment DIFF FINAL Differential Comment Blood Urea Nitrogen 27 MG/DL Creatinine 0.95 MG/DL Random Glucose 250 MG/DL Total Protein 7.9 GM/DL Albumin 3.2 GM/DL Calcium Level 8.7 MG/DL Alkaline Phosphatase 85 U/L Aspartate Amino Transf (AST/SGOT) 20 U/L Alanine Aminotransferase (ALT/SGPT) 12 U/L Total Bilirubin 0.5 MG/DL Sodium Level 135 MEQ/L Potassium Level 5.2 MEQ/L Chloride Level 95 MEQ/L Carbon Dioxide Level 38.0 MEQ/L Anion Gap 2 MEQ/L Estimat Glomerular Filtration Rate 71 ML/MIN Troponin I LESS THAN 0.02 NG/ML MDM Medical Decision Making Medical Screen Exam Complete: Yes Emergency Medical Condition: Yes Interpretation(s) My review of EKG: Sinus tachycardia rate 110, normal axis, and for lateral T wave inversions and ST changes, small T-wave inversions inferiorly. LABS: CBC is unremarkable. CMP is remarkable for mildly elevated potassium, BUN, glucose 250 Troponin negative Chest x-ray: Widening cardiac silhouette. No obvious acute infiltrate. Differential Diagnosis Muscular skeletal chest pain, ACS, stable angina, other Narrative Course Medical decision making 66-year-old with recurrent episodes of chest pain. EKG is unchanged from baseline. Seems very similar to previous presentations. She's had previous workups for PE been negative. I don't think she has an acute coronary syndrome. We'll check screening labs, x-ray, likely outpatient follow-up. Diagnosis Primary Impression: Chest pain Additional Instructions: Follow-up with her beater operator. Return to the emergency department for any new or worsening symptoms. Med/Other Pt SpecificInfo: No Change to Meds Disposition: 01 DISCHARGE HOME Condition: Stable Maverick Saab MD May 18, 2017 15:19
--- NOTE | 2017-05-18 15:41 | RADRPT ---
EXAM DATE/TIME: 05/18/2017 15:14 [facility] COMPARISON: CHEST SINGLE AP, April 16, 2017, 17:10. INDICATIONS : Chest pain MEDICAL HISTORY : Cardiovascular disease. Hypertension. Chronic obstructive pulmonary disease.Diabetes II SURGICAL HISTORY : Hysterectomy. Tubal ligation ENCOUNTER: Initial ACUITY: 3 months PAIN SCORE: 0/10 LOCATION: chest FINDINGS: A single view of the chest demonstrates the lungs to be symmetrically aerated without evidence of mas s, infiltrate or effusion. The cardiac silhouette remains widened Osseous structures are intact. CONCLUSION: Widened cardiac silhouette. No obvious acute infiltrate. Maverick Maria MD on May 18, 2017 at 15:39 Board Certified Radiologist. This report was verified electronically.
[2017-05-18 15:44] LABS: AUTOMATED NEUTROPHIL # 5.6 TH/MM3 (1.8-7.7); BASOPHIL % 0.6 % (0.0-2.0); EOSINOPHIL # 0.1 TH/MM3 (0-0.4); HEMOGLOBIN 10.6 GM/DL (11.6-15.3); LYMPH % 15.6 % (9.0-44.0); LYMPHOCYTE # 1.2 TH/MM3 (1.0-4.8); MEAN CELL VOLUME 76.8 FL (80.0-100.0); MEAN CORPUSCULAR HEMOGLOBIN 22.7 PG (27.0-34.0); MEAN PLATELET VOLUME 8.4 FL (7.0-11.0); MONO % 7.3 % (0.0-8.0); MONOCYTE # 0.5 TH/MM3 (0-0.9); NEUT % 75.5 % (16.0-70.0); PLATELET COUNT 287 TH/MM3 (150-450); RED BLOOD COUNT 4.69 MIL/MM3 (4.00-5.30); RED CELL DISTRIBUTION WIDTH 16.4 % (11.6-17.2); WHITE BLOOD COUNT 7.4 TH/MM3 (4.0-11.0)
[2017-05-18 15:46] LABS: BACTERIA, URINE FEW /hpf; BILIRUBIN, URINE NEG (NEG); BLOOD, URINE SMALL (NEG); GLUCOSE,URINE NEG (NEG); HYALINE CAST, URINE 6 /lpf (RARE); KETONE, URINE NEG (NEG); MUCUS URINE FEW /lpf (OCC); NITRITE,URINE NEG (NEG); PH, URINE 5.5 (5.0-8.5); SQUAMOUS EPITHELIAL CELL URINE 1 /hpf (0-5); URINE COLOR LIGHT-YELLOW (YELLW/STRAW); URINE LEUKOCYTE ESTERASE LARGE (NEG)
[2017-05-18 15:53] LABS: MEAN CORPUSCULAR HGB CONC 29.5 % (32.0-36.0)
[2017-05-18 16:08] LABS: ALKALINE PHOSPHATASE 85 U/L (45-117); ALT (GPT) 12 U/L (10-53); TOTAL BILIRUBIN ADULT 0.5 MG/DL (0.2-1.0); TOTAL PROTEIN 7.9 GM/DL (6.4-8.2); TROPONIN I LESS THAN 0.02 NG/ML (0.02-0.05)
[2017-05-18 16:12] LABS: ALBUMIN 3.2 GM/DL (3.4-5.0); AST (GOT) 20 U/L (15-37); BLOOD UREA NITROGEN 27 MG/DL (7-18); CALCIUM 8.7 MG/DL (8.5-10.1); CHLORIDE 95 MEQ/L (98-107); CREATININE 0.95 MG/DL (0.50-1.00); GLOMERULAR FILTRATION RATE 71 ML/MIN (>89); GLUCOSE,RANDOM 250 MG/DL (74-106); SODIUM (NA) 135 MEQ/L (136-145)
[2017-05-18 18:30] VITALS: BP 133/81; TEMP 97.8
--- NOTE | 2017-05-19 18:01 | EKG ---
Date Performed: 05/18/2017 Time Performed: 15:08:49 PTAGE: 66 years EKG: SINUS TACHYCARDIA POSSIBLE LEFT ATRIAL ENLARGEMENT ST DEVIATION AND MODERATE T-WAVE ABNORMA LITY, CONSIDER ANTEROLATERAL ISCHEMIA Since previous tracing, no significant change noted ABNORMAL EC G PREVIOUS TRACING : 04/16/2017 23.47 DOCTOR: Alicia Dia Interpretating Date/Time 05/19/2017 17:59:05
== END 2017-05-18 18:30 | disposition home or self-care (01) ==
LOC: NEPE 14:19
DX: R07.9 Chest pain, unspecified (principal); R00.0 Tachycardia, unspecified; R94.31 Abnormal electrocardiogram [ECG] [EKG]; E66.9 Obesity, unspecified; I11.0 Hypertensive heart disease with heart failure; I50.9 Heart failure, unspecified; J44.9 Chronic obstructive pulmonary disease, unspecified; M06.9 Rheumatoid arthritis, unspecified; E11.9 Type 2 diabetes mellitus without complications
CPT/HCPCS: 71010; 80053; 81001; 84484; 85025; 87077; 87086; 87186; 93005; 99285; P9612

== ENCOUNTER 2017-08-10 18:15 | Inpatient (IN) | payer MEDICARE, MEDICAID ==
[~2017-08-10] VITALS: Ht 152.4 cm; Wt 128.5 kg
[2017-08-10] VITALS (7 sets, daily range): BP systolic 109–143; BP diastolic 55–97; PULSE 98–104; RESP 17–24; TEMP 98; O2SAT 88–98
[~2017-08-10 18:15] MED LIST changes: -ENEMENE5 PR; -LAC-LOT2 TOPICAL; -OXYC1CAP PO; -SITA50 PO
[2017-08-10] MEDS ORDERED: SODIUM CHLORIDE 0.9% FLUSH 10 ML FLUSH IVF PRN (18:30)
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
[2017-08-10] MEDS ORDERED: GABA300C5 PO (18:44)
[2017-08-10] MEDS ORDERED: SILV1CRE (18:44)
--- NOTE | 2017-08-10 19:15 | RADRPT ---
EXAM DATE/TIME: 08/10/2017 18:47 [facility] COMPARISON: CHEST SINGLE AP, May 18, 2017, 15:14. INDICATIONS : Chest pain. Short of breath. MEDICAL HISTORY : None. SURGICAL HISTORY : None. ENCOUNTER: Subsequent ACUITY: 1 day PAIN SCORE: 6/10 LOCATION: Bilateral chest FINDINGS: There is no partially consolidative infiltrate in the right middle lobe laterally. There is also inc reasing right infrahilar infiltrate with focal area of consolidation. Partially consolidative infilt rate in the left lower lung is similar to prior. Stable cardiomegaly. A lateral view was performed which is nondiagnostic. CONCLUSION: 1. New right middle lobe infiltrate. Stable partially consolidative infiltrate left lower lung. Smooth Man MD on August 10, 2017 at 19:12 Board Certified Radiologist. This report was verified electronically.
[2017-08-10 19:18] LABS: AUTOMATED NEUTROPHIL # 7.8 TH/MM3 (1.8-7.7); BASOPHIL # 0.1 TH/MM3 (0-0.2); BASOPHIL % 0.7 % (0.0-2.0); EOSINOPHIL # 0.2 TH/MM3 (0-0.4); EOSINOPHIL % 1.2 % (0.0-4.0); HEMATOCRIT 39.4 % (35.0-46.0); HEMOGLOBIN 11.4 GM/DL (11.6-15.3); LYMPH % 32.9 % (9.0-44.0); LYMPHOCYTE # 4.3 TH/MM3 (1.0-4.8); MEAN PLATELET VOLUME 8.1 FL (7.0-11.0); MONO % 5.4 % (0.0-8.0); MONOCYTE # 0.7 TH/MM3 (0-0.9); NEUT % 59.8 % (16.0-70.0); PLATELET COUNT 352 TH/MM3 (150-450); RED BLOOD COUNT 5.18 MIL/MM3 (4.00-5.30); RED CELL DISTRIBUTION WIDTH 17.4 % (11.6-17.2)
--- NOTE | 2017-08-10 19:23 | PD ---
Physical Exam Narrative Received sign out from previous team to follow up labs and reevaluate. 66yo F from [facility] with PMH of HTN, DM, COPD on home O2, ND, CHF, morbid obesity [facility] for supposed cardiac arrest s/ p successful resuscitation. Pt is AAOx3 and said I want to go home now. Pt is on 3L O2 normally and has some wheezing. When I ask if she wants any treatments , she said she does so will give nebulizer treatments. Pt is saturating at low 90s on 3L NC and feel that this is her baseline. Denies any fever, chest pain, sob, n/v, abdominal pain, focal weakness or numbness. Pt reevaluated at bedside and said she is still sob. She is now saturating at 85% on 4L NC. Feel that she probably needs CPAP for sleep and probably has sleep apnea. Will place pt on CPAP. CXR showed new consolidative infiltrates in right middle lobe and stable left lower lobe consolidation. Pt is from [facility] so covered with vancomycin and zosyn for HCAP. Labs reviewed, mild leukocytosis at 13,000. Mild hyperkalemia at 5.5 but there was slight hemolysis. Glucose elevated at 222. No increased anion gap. Troponin negative. BUN/creatinine elevated at 37/1.50 which is more elevated than baseline. Pt given NS IVF. Pt reevaluated at bedside and saturating at 95% on BIPAP 40%. Discussed with Dr. Ugarte and accepted to her service. Pt seemed to be in and out and sleepier than before so ABG ordered. Unable to obtain ABG but VBG was obtained and pCO2 is 67 which seems to be her baseline compare to 07/2016. Pt is easily arousable but does seem sleepier than before. Will monitor closely. Dr. Ugarte request upgrade to ICU and broadcaster was called. I discussed with broadcaster Dr. Nix and he accepted the patient to his service. Pt was evaluated by Dr. Nix in the ED. Data Data Last Documented VS Vital Signs Date Time Temp Pulse Resp B/P (MAP) Pulse Ox O2 Delivery O2 Flow Rate FiO2 08/10/17 22:02 98 20 143/71 (95) BiPAP 08/10/17 22:00 96 50 08/10/17 19:08 15.00 08/10/17 18:18 98.0 Orders Orders Electrocardiogram (3/11/18 18:19) Basic Metabolic Panel (Bmp) (08/10/17 18:19) Ckmb (Isoenzyme) Profile (08/10/17 18:19) Complete Blood Count With Diff (08/10/17 18:19) Magnesium (Mg) (08/10/17 18:19) Prothrombin Time / Inr (Pt) (08/10/17 18:19) Act Partial Throm Time (Ptt) (08/10/17 18:) Troponin I (08/10/17 18:) Ecg Monitoring (08/10/17 18:) Bilateral Bp Monitoring (08/10/17 18:) Iv Access Insert/Monitor (08/10/17 18:) Oximetry (08/10/17 18:) Oxygen Administration (08/10/17 18:) Sodium Chloride 0.9% Flush (Ns Flush) (08/10/17 18:30) Chest, Pa & Lat (08/10/17 18:19) Chest, Single Ap (08/10/17 19:23) Methylprednisolone So Succ Inj (Solumedr (08/10/17 19:30) Albuterol-Ipratropium Neb (Duoneb Neb) (08/10/17 19:30) Vancomycin Inj (Vancomycin Inj) (08/10/17 20:30) Piperacil-Tazo 3.375 Gm Premix (Zosyn 3. (08/10/17 20:30) Sodium Chlor 0.9% 1000 Ml Inj (Ns 1000 M (08/10/17 20:30) CKMB (08/10/17 19:58) CKMB% (08/10/17 19:58) Sodium Chlor 0.9% 1000 Ml Inj (Ns 1000 M (08/10/17 21:45) Admit Order (Ed Use Only) (08/10/17 22:22) Labs Laboratory Tests Test 08/10/17 18:35 08/10/17 19:58 White Blood Count 13.0 TH/MM3 Red Blood Count 5.18 MIL/MM3 Hemoglobin 11.4 GM/DL Hematocrit 39.4 % Mean Corpuscular Volume 76.0 FL Mean Corpuscular Hemoglobin 22.0 PG Mean Corpuscular Hemoglobin Concent 29.0 % Red Cell Distribution Width 17.4 % Platelet Count 352 TH/MM3 Mean Platelet Volume 8.1 FL Neutrophils (%) (Auto) 59.8 % Lymphocytes (%) (Auto) 32.9 % Monocytes (%) (Auto) 5.4 % Eosinophils (%) (Auto) 1.2 % Basophils (%) (Auto) 0.7 % Neutrophils # (Auto) 7.8 TH/MM3 Lymphocytes # (Auto) 4.3 TH/MM3 Monocytes # (Auto) 0.7 TH/MM3 Eosinophils # (Auto) 0.2 TH/MM3 Basophils # (Auto) 0.1 TH/MM3 CBC Comment DIFF FINAL Differential Comment Prothrombin Time 10.3 SEC Prothromb Time International Ratio 1.0 RATIO Activated Partial Thromboplast Time 25.4 SEC Blood Urea Nitrogen 37 MG/DL Creatinine 1.50 MG/DL Random Glucose 222 MG/DL Calcium Level 8.4 MG/DL Magnesium Level 2.8 MG/DL Sodium Level 133 MEQ/L Potassium Level 5.5 MEQ/L Chloride Level 94 MEQ/L Carbon Dioxide Level 33.7 MEQ/L Anion Gap 5 MEQ/L Estimat Glomerular Filtration Rate 42 ML/MIN Total Creatine Kinase 123 U/L Creatine Kinase MB 2.2 NG/ML Troponin I 0.04 NG/ML Thyroid Stimulating Hormone 3rd Gen 0.039 uIU/ML MDM Supervised Visit with MARLYN: Yes Critical Care Narrative Aggregate critical care time was 40 minutes. Time to perform other separately billable procedures was not included in the critical care time. My time did not include minutes spent treating any other patients simultaneously or on activities that did not directly contribute to the patient's treatment. The services I provided to this patient were to treat and/or prevent clinically significant deterioration that could result in: respiratory distress or . I provided critical care services requiring my management, as noted below: Chart data review, documentation time, medication orders and management, vital sign assessments/reviewing monitor data, ordering and reviewing lab tests, ordering and interpreting/reviewing x-rays and diagnostic studies, care of the patient and discussion of the patient with the admitting physicians. Diagnosis Primary Impression: Healthcare-associated pneumonia Admitting Information Admitting Physician Requests: Admit Condition: Stable Vilma Kemp Aug 10, 2017 19:23
[2017-08-10] MEDS ORDERED: methylPREDNISolone SOD SUCC 125 MG/2 ML VIAL IV PUSH ONE (19:30)
[2017-08-10 19:33] LABS: PROTHROMBIN TIME - PATIENT 10.3 SEC (9.8-11.6)
[2017-08-10] MEDS: RESP: ALBUTEROL 2.5 MG/IPRATROPIUM 0.5 MG NEB (SCH) INH ×2 (19:39→19:40)
--- NOTE | 2017-08-10 20:17 | RADRPT ---
EXAM DATE/TIME: 08/10/2017 19:27 [facility] COMPARISON: CHEST PA & LAT, August 10, 2017, 18:47. CHEST SINGLE AP, May 18, 2017, 15:14. INDICATIONS : Chest pain, follow-up film from one hour ago. MEDICAL HISTORY : Cardiovascular disease. Hypertension Chronic obstructive pulmonary disease. Diabetes PR SURGICAL HISTORY : Tubal ligation. Hysterectomy. ENCOUNTER: Subsequent ACUITY: 1 day PAIN SCORE: 9/10 LOCATION: Bilateral chest FINDINGS: Right middle lobe consolidative infiltrate persists and has a sharp demarcation with the minor fissur e. Size is stable. There is also consolidation in the infrahilar right lung. Consolidation in the left lower lobe with air bronchograms and loss of delineation left hemidiaphragm stable from prior. The heart is enlarged. The trachea is midline. CONCLUSION: 1. There are new consolidative infiltrates in the right middle lobe. 2. Stable left lower lobe consolidation. Smooth Man MD on August 10, 2017 at 20:14 Board Certified Radiologist. This report was verified electronically.
[2017-08-10] MEDS ORDERED: PIPERACIL-TAZO 3.375 GM PREMIX 50 ML IV ONE (20:30)
[2017-08-10] MEDS ORDERED: SODIUM CHLOR 0.9% 1000 ML INJ 1,000 ML IV ONE ×2 (20:30→21:45)
[2017-08-10] MEDS ORDERED: VANCOMYCIN INJ 1,950 MG in SODIUM CHLORID 0.9% 500 ML INJ 500 ML IV ONE (20:30)
[2017-08-10 21:25] LABS: BICARBONATE 33.7 MEQ/L (21.0-32.0); BLOOD UREA NITROGEN 37 MG/DL (7-18); CALCIUM 8.4 MG/DL (8.5-10.1); CHLORIDE 94 MEQ/L (98-107); GLOMERULAR FILTRATION RATE 42 ML/MIN (>89); GLUCOSE,RANDOM 222 MG/DL (74-106); MAGNESIUM 2.8 MG/DL (1.5-2.5); SODIUM (NA) 133 MEQ/L (136-145); TROPONIN I 0.04 NG/ML (0.02-0.05)
[2017-08-10] MEDS ORDERED: LORazepam 0.5 MG TAB PO PRN (22:30)
[2017-08-10] MEDS ORDERED: LACTULOSE SYRUP 20 GM/30 ML CUP PO PRN (22:30)
[2017-08-10] MEDS ORDERED: MORPHINE SULFATE 2 MG/ML INJ IV PUSH PRN (22:30)
[2017-08-10] MEDS ORDERED: Vancomycin Consult Pharmacy 1 EA OTHER SCH (22:30)
[2017-08-10] MEDS ORDERED: RESP: ALBUTEROL 2.5 MG/IPRATROPIUM 0.5 MG NEB (PRN) NEB (22:30)
[2017-08-10] MEDS ORDERED: SENNOSIDES 8.6 MG TAB PO PRN (22:30)
[2017-08-10] MEDS ORDERED: GLUCAGON 1 MG/ML VIAL OTHER PRN (22:30)
[2017-08-10] MEDS ORDERED: ONDANSETRON HCL 4 MG/2 ML VIAL IVP PRN (22:30)
[2017-08-10] MEDS ORDERED: DEXTROSE 50% IN WATER 50 ML VIAL(D50) IV PUSH PRN (22:30)
[2017-08-10] MEDS ORDERED: MAGNESIUM HYDROXIDE SUSP 30 ML CUP PO PRN (22:30)
[2017-08-10] MEDS ORDERED: BISACODYL 10 MG SUPP RECTAL PRN (22:30)
[2017-08-10] MEDS ORDERED: SODIUM CHLORIDE 0.9% FLUSH 10 ML FLUSH IV FLUSH PRN (22:30)
[2017-08-10] MEDS ORDERED: ACETAMINOPHEN/HYDROcodone 325 MG/5 MG TAB PO PRN (22:30)
[2017-08-10] MEDS ORDERED: ACETAMINOPHEN 325 MG TAB PO PRN (22:30)
--- NOTE | 2017-08-10 22:34 | HHI.HP ---
[facility] Luis Parry MD Admission Diagnosis Right middle lobe pneumonia, hypoxic respiratory failure Diagnoses: Travel History International Travel<30 Days: No Contact w/Intl Traveler <30 Da: No Traveled to Known Affected Are: No Past Family Social History Allergies: Coded Allergies: *MDRO Multi-Drug Resistant Organism (Verified Adverse Reaction, Unknown, MRSA, 08/10/17) MRSA PCR positive - 06/28/2015 & 06/03/16 Physical Exam Vital Signs Vital Signs Date Time Temp Pulse Resp B/P (MAP) Pulse Ox O2 Delivery O2 Flow Rate FiO2 08/10/17 22:02 98 20 143/71 (95) BiPAP 08/10/17 19:08 104 22 109/55 (73) 98 Non-Rebreather 15.00 08/10/17 18:31 126/79 (95) 139/97 (111) 08/10/17 18:30 99 24 95 Non-Rebreather 15.00 08/10/17 18:23 24 88 Room Air 08/10/17 18:23 95 Non-Rebreather 15.00 08/10/17 18:18 98.0 100 20 126/76 (93) 95 Physical Exam GENERAL: This is a well-nourished, well-developed patient, in no apparent distress. SKIN: No rashes, ecchymoses or lesions. Cool and dry. HEAD: Atraumatic. Normocephalic. No temporal or scalp tenderness. EYES: Pupils equal round and reactive. Extraocular motions intact. No scleral icterus. No injection or drainage. ENT: Nose without bleeding, purulent drainage or septal hematoma. Throat without erythema, tonsillar hypertrophy or exudate. Uvula midline. Airway patent. NECK: Trachea midline. No JVD or lymphadenopathy. Supple, nontender, no meningeal signs. CARDIOVASCULAR: Regular rate and rhythm without murmurs, gallops, or rubs. RESPIRATORY: Clear to auscultation. Breath sounds equal bilaterally. No wheezes , rales, or rhonchi. GASTROINTESTINAL: Abdomen soft, non-tender, nondistended. No hepato-splenomegaly , or palpable masses. No guarding. MUSCULOSKELETAL: Extremities without clubbing, cyanosis, or edema. No joint tenderness, effusion, or edema noted. No calf tenderness. Negative Homans sign bilaterally. NEUROLOGICAL: Awake and alert. Cranial nerves II through XII intact. Motor and sensory grossly within normal limits. Five out of 5 muscle strength in all muscle groups. Normal speech. Laboratory Laboratory Tests Test 08/10/17 18:35 08/10/17 19:58 White Blood Count 13.0 Red Blood Count 5.18 Hemoglobin 11.4 Hematocrit 39.4 Mean Corpuscular Volume 76.0 Mean Corpuscular Hemoglobin 22.0 Mean Corpuscular Hemoglobin Concent 29.0 Red Cell Distribution Width 17.4 Platelet Count 352 Mean Platelet Volume 8.1 Neutrophils (%) (Auto) 59.8 Lymphocytes (%) (Auto) 32.9 Monocytes (%) (Auto) 5.4 Eosinophils (%) (Auto) 1.2 Basophils (%) (Auto) 0.7 Neutrophils # (Auto) 7.8 Lymphocytes # (Auto) 4.3 Monocytes # (Auto) 0.7 Eosinophils # (Auto) 0.2 Basophils # (Auto) 0.1 CBC Comment DIFF FINAL Differential Comment Prothrombin Time 10.3 Prothromb Time International Ratio 1.0 Activated Partial Thromboplast Time 25.4 Blood Urea Nitrogen 37 Creatinine 1.50 Random Glucose 222 Calcium Level 8.4 Magnesium Level 2.8 Sodium Level 133 Potassium Level 5.5 Chloride Level 94 Carbon Dioxide Level 33.7 Anion Gap 5 Estimat Glomerular Filtration Rate 42 Total Creatine Kinase 123 Creatine Kinase MB 2.2 Troponin I 0.04 Result Diagram: 08/10/17 1835 08/10/171957 Caprini VTE Risk Assessment Caprini Risk Assessment Model Point Value = 1 Point Value = 2 Point Value = 3 Point Value = 5 Age 41-60 Minor surgery BMI > 25 kg/m2 Swollen legs Varicose veins or History of unexplained or recurrent spontaneous Oral contraceptives or hormone replacement Sepsis (< 1 month) Serious lung disease, including pneumonia (< 1 month) Abnormal pulmonary function Acute myocardial infarction Congestive heart failure (< 1 month) History of inflammatory bowel disease Medical patient at bed rest Age 61-74 Arthroscopic surgery Major open surgery (> 45 min) Laparoscopic surgery (> 45 min) Malignancy Confined to bed (> 72 hours) Immobilizing plaster cast Central venous access Age >= 75 History of VTE Family history of VTE Factor V Leiden Prothrombin [id number] Lupus anticoagulant Anticardiolipin antibodies Elevated serum homocysteine Heparin-induced thrombocytopenia Other congenital or acquired thrombophilia Stroke (< 1 month) Elective arthroplasty Hip, pelvis, or leg fracture Acute spinal cord injury (< 1 month) Prophylaxis Regimen Total Risk Factor Score Risk Level Prophylaxis Regimen 0-1 Low Early ambulation 2 Moderate Order ONE of the following: *Sequential Compression Device (SCD) *Heparin 5000 units SQ BID 3-4 Higher Order ONE of the following medications: *Heparin 5000 units SQ TID *Enoxaparin/Lovenox 40 mg SQ daily (WT < 150 kg, CrCl > 30 mL/min) *Enoxaparin/Lovenox 30 mg SQ daily (WT < 150 kg, CrCl > 10-29 mL/min) *Enoxaparin/Lovenox 30 mg SQ BID (WT < 150 kg, CrCl > 30 mL/min) AND/OR *Sequential Compression Device (SCD) 5 or more Highest Order ONE of the following medications: *Heparin 5000 units SQ TID (Preferred with Epidurals) *Enoxaparin/Lovenox 40 mg SQ daily (WT < 150 kg, CrCl > 30 mL/min) *Enoxaparin/Lovenox 30 mg SQ daily (WT < 150 kg, CrCl > 10-29 mL/min) *Enoxaparin/Lovenox 30 mg SQ BID (WT < 150 kg, CrCl > 30 mL/min) AND *Sequential Compression Device (SCD) Physician Certification Order for Inpatient Services The services are ordered in accordance with Medicare regulations or non- Medicare payer requirements, as applicable. In the case of services not specified as inpatient-only, they are appropriately provided as inpatient services in accordance with the 2-midnight benchmark. days is the estimated time the patient will need to remain in the hospital, assuming treatment plan goals are met and no additional complications. Jeanna Ugarte MD Aug 10, 2017 22:34
[2017-08-11] VITALS (30 sets, daily range): BP systolic 112–168; BP diastolic 54–108; PULSE 75–98; RESP 13–20; TEMP 97.5–98; O2SAT 90–100
[2017-08-11] MEDS ORDERED: CHLORHEXIDINE GLUCONATE 2 % 1 PACK (2 CLOTHS) TOP PRN ×2 (01:00→02:15)
[2017-08-11] MEDS ORDERED: MISCELLANEOUS NURSING INFORMATION XX SCH ×2 (01:00→02:15)
[2017-08-11] MEDS ORDERED: RESP: ALBUTEROL 2.5 MG/IPRATROPIUM 0.5 MG NEB (PRN) INH (02:15)
[2017-08-11] MEDS ORDERED: ACETAMINOPHEN 325 MG TAB PO PRN (02:15)
[2017-08-11] MEDS ORDERED: FUROSEMIDE 40 MG/4 ML VIAL IV PUSH ONE (02:30)
--- NOTE | 2017-08-11 02:42 | HHI.HP ---
HPI Service Critical Care Medicine Primary Care Physician Luis Parry MD Admission Diagnosis Right middle lobe pneumonia, hypoxic respiratory failure Diagnosis: Travel History International Travel<30 Days: No Contact w/Intl Traveler <30 Da: No Traveled to Known Affected Are: No History of Present Illness HPI 66yo F from [facility] with PMH of HTN, DM, COPD on home O2, CT, CHF, morbid obesity was brought here from long-term for supposed cardiac arrest s/ p successful resuscitation. Pt is AAOx3 and said I want to go home now. Pt is on 3L O2 normally and has some wheezing. When I ask if she wants any treatments , she said she does so will give nebulizer treatments. Pt is saturating at low 90s on 3L NC and feel that this is her baseline. Denies any fever, chest pain, sob, n/v, abdominal pain, focal weakness or numbness. Pt reevaluated at bedside and said she is still sob. She subsequently dropped O2sats to at 85% on 4L NC. Patient was started on BIPAP. CXR showed new consolidative infiltrates in right middle lobe and stable left lower lobe consolidation. Pt is from long-term so covered with vancomycin and zosyn for HCAP. Labs reviewed, mild leukocytosis at 13,000. Mild hyperkalemia at 5.5 but there was slight hemolysis. Glucose elevated at 222. No increased anion gap. Troponin negative. BUN/creatinine elevated at 37/1.50 which is more elevated than baseline. Pt given NS IVF. Pt reevaluated at bedside and saturating at 95% on BIPAP 40% Patient was accepted for admission to critical care and I evaluated the patient in the ER. At the time of my eval patient resting comfortably on BIPAP. History PFSH Past Medical History Hx Anticoagulant Therapy: Yes (PLAVIX) Arthritis: Yes (RA) Asthma: No Autoimmune Disease: No Blood Disorders: No Anxiety: Yes Depression: Yes Heart Rhythm Problems: No Cancer: No Cardiac Catheterization: Yes (JUNE 2009) Cardiovascular Problems: Yes High Cholesterol: Yes Chemotherapy: No Chest Pain: Yes Congestive Heart Failure: Yes COPD: Yes Cerebrovascular Accident: No Coronary Artery Disease: Yes Diabetes: Yes (TYPE II) Diminished Hearing: No Diverticulitis: Yes Endocrine: Yes Gastrointestinal Disorders: Yes GERD: Yes Glaucoma: Yes Genitourinary: No Headaches: No Hepatitis: No Hiatal Hernia: No Heparin Induced Thrombocytopen: No Hypertension: Yes Immune Disorder: Yes Implanted Vascular Access Dvce: No Kidney Stones: No Musculoskeletal: Yes (RA, DEFORMITY OF THE RT LOWER EXTREMITY) Neurologic: Yes (ENCEPHALOPATHY) Psychiatric: Yes Reproductive: No Respiratory: Yes Immunizations Current: No Migraines: No Myocardial Infarction: Yes Pneumonia: Yes Radiation Therapy: No Renal Failure: No Seizures: No Sickle Cell Disease: No Sleep Apnea: Yes Thyroid Disease: No Ulcer: No Menopausal: No Tubal Ligation: Yes Past Surgical History Abdominal Surgery: Yes AICD: No Appendectomy: No Arteriovenous Shunt: No Cardiac Surgery: Yes (STENTS RIGHT ILIAC ARTERY) Section: Yes Cholecystectomy: No Coronary Artery Bypass Graft: No Ear Surgery: No Endocrine Surgery: No Eye Surgery: Yes (CATARACTS) Genitourinary Surgery: No Gynecologic Surgery: Yes (PARTIAL HYSTERECTOMY, CSECTION) Hysterectomy: Yes Joint Replacement: No Neurologic Surgery: No Oral Surgery: No Pacemaker: No Thoracic Surgery: No Other Surgery: Yes (CYST REMOVED RT BREAST) Social History Alcohol Use: No Tobacco Use: No (QUIT 7 YEARS AGO) Substance Use: No Allergies-Medications Allergies-Medications (Allergen,Severity, Reaction): Coded Allergies: *MDRO Multi-Drug Resistant Organism (Verified Adverse Reaction, Unknown, MRSA, 08/10/17) MRSA PCR positive - 06/28/2015 & 06/03/16 Reported Meds & Prescriptions Reported Meds & Active Scripts Active Lisinopril 5 Mg Tab 5 Mg PO DAILY Isosorbide Mononitrate ER (Isosorbide Mononitrate) 30 Mg Refugio 30 Mg PO DAILY@07 Reported Gabapentin 300 Mg Cap 300 Mg PO BID Silver Sulfadiazine 1 % Cream..g. Artificial Tears (Dextran 70/Hypromellose) 1 Each Droperette 2 Drop EACH EYE Q4HR PRN Milk of Magnesia Liq (Magnesium Hydroxide) 400 Mg/5 Ml Susp 30 Ml PO HS PRN Ativan (Lorazepam) 0.5 Mg Tab 0.5 Mg PO Q8H PRN Zantac (Ranitidine HCl) 150 Mg Tab 150 Mg PO BID Acidophilus Probiotic (Lactobacillus) 100 Mg (1 Billion Cell) Cap 1 Cap PO BID Magnesium Oxide 400 Mg Tab 400 Mg PO DAILY Lantus Inj (Insulin Glargine) 1,000 Unit/10 Ml Vial 10 Units SQ HS Folic Acid 1 Mg Tablet 1 Mg PO DAILY Ferrousul (Ferrous Sulfate) 325 Mg (65 Mg Iron) Tab 325 Mg PO DAILY Tylenol (Acetaminophen) 325 Mg Tab 650 Mg PO Q4H PRN Zoloft (Sertraline HCl) 100 Mg Tab 100 Mg PO DAILY Furosemide 40 Mg Tab 40 Mg PO DAILY Potassium Chloride ER (Potassium Chloride) 10 Meq Cap 10 Meq PO DAILY Novolog Inj (Insulin Aspart) 1,000 Unit/10 Ml Vial 10 SQ DAILY Sliding Scale as directed. Plavix (Clopidogrel Bisulfate) 75 Mg Tab 75 Mg PO DAILY Multi-Vitamin/Minerals (Multiple Vitamins W/ Minerals) 1 Tab Tab 1 Tab PO DAILY Dulcolax Supp (Bisacodyl) 10 Mg Supp 10 Mg RECTAL DAILY PRN Magnesium Citrate Liq (Magnesium Citrate) 300 Ml Liq 296 Ml PO IN THE AM PRN Atorvastatin (Atorvastatin Calcium) 40 Mg Tab 40 Mg PO HS Aspirin 81 Mg Chew 81 Mg PO DAILY Duoneb (Ipratropium-Albuterol Neb) 0.5-2.5 Mg/3 Ml Neb 3 Ml NEB BID ROS Review of Systems Except as stated in HPI: all other systems reviewed are Neg Cardiovascular: Positive: Chest Pain or Discomfort Respiratory: Positive: Shortness of Breath Musculoskeletal: Positive: Pain (Right lower leg pain which is chronic and secondary to a childhood injury), Atrophy Physical Exam Vital Signs Vital Signs Date Time Temp Pulse Resp B/P (MAP) Pulse Ox O2 Delivery O2 Flow Rate FiO2 08/11/17 02:01 97 15 128/69 (88) 92 BiPAP 90 08/11/17 01:20 87 15 125/61 (82) 90 BiPAP 90 08/10/17 23:06 101 17 134/59 (84) 96 BiPAP 90 08/10/17 22:02 98 20 143/71 (95) BiPAP 08/10/17 22:00 96 50 08/10/17 19:08 104 22 109/55 (73) 98 Non-Rebreather 15.00 08/10/17 18:31 126/79 (95) 139/97 (111) 08/10/17 18:30 99 24 95 Non-Rebreather 15.00 08/10/17 18:23 24 88 Room Air 08/10/17 18:23 95 Non-Rebreather 15.00 08/10/17 18:18 98.0 100 20 126/76 (93) 95 Physical Exam Narrative GENERAL: Patient is drowsy, easily arousable on BIPAP with full face mask. SKIN: warm/dry. HEAD: Normocephalic. Atraumatic. EYES: Pupils equal and round. No scleral icterus. No injection or drainage. ENT: No nasal bleeding or discharge. Mucous membranes pink and moist. NECK: Trachea midline. CARDIOVASCULAR: Regular rate and rhythm. RESPIRATORY: On BIPAP with full face mask, air entry decreased at bases bilaterally, scattered rhonchi bilaterally, no wheezing GASTROINTESTINAL: Abdomen soft. Nontender. Bowel sounds present. Nondistended. Delayed MUSCULOSKELETAL: Right lower leg is markedly atrophied. NEUROLOGICAL: Drowsy, easily arousable. No obvious cranial nerve deficits. Motor grossly within normal limits. Laboratory Laboratory Tests Test 08/10/17 18:35 08/10/17 19:58 08/11/17 00:00 White Blood Count 13.0 Red Blood Count 5.18 Hemoglobin 11.4 Hematocrit 39.4 Mean Corpuscular Volume 76.0 Mean Corpuscular Hemoglobin 22.0 Mean Corpuscular Hemoglobin Concent 29.0 Red Cell Distribution Width 17.4 Platelet Count 352 Mean Platelet Volume 8.1 Neutrophils (%) (Auto) 59.8 Lymphocytes (%) (Auto) 32.9 Monocytes (%) (Auto) 5.4 Eosinophils (%) (Auto) 1.2 Basophils (%) (Auto) 0.7 Neutrophils # (Auto) 7.8 Lymphocytes # (Auto) 4.3 Monocytes # (Auto) 0.7 Eosinophils # (Auto) 0.2 Basophils # (Auto) 0.1 CBC Comment DIFF FINAL Differential Comment Prothrombin Time 10.3 Prothromb Time International Ratio 1.0 Activated Partial Thromboplast Time 25.4 Blood Urea Nitrogen 37 Creatinine 1.50 Random Glucose 222 Calcium Level 8.4 Magnesium Level 2.8 Sodium Level 133 Potassium Level 5.5 Chloride Level 94 Carbon Dioxide Level 33.7 Anion Gap 5 Estimat Glomerular Filtration Rate 42 Total Creatine Kinase 123 Creatine Kinase MB 2.2 Troponin I 0.04 Blood Gas Puncture Site RT FOOT Blood Gas Patient Temperature 98.6 Venous Blood pH 7.25 Venous Blood Partial Pressure CO2 67 Venous Blood Partial Pressure O2 29 Venous Blood HCO3 28 Venous Blood Oxygen Saturation 45 Venous Blood Oxygen Content 7.0 Venous Blood Base Excess 1.8 Oxygen Delivery Device BIPAP Blood Gas Ventilator Setting Blood Gas Inspired Oxygen 50 Result Diagram: 08/10/17 1835 08/10/171957 Imaging Last Impressions Chest X-Ray 08/10/171922 Signed Impressions: Service Date/Time: Thursday, August 10, 2017 19:27 - CONCLUSION: 1. There are new consolidative infiltrates in the right middle lobe. 2. Stable left lower lobe consolidation. Smooth Man MD Septic Shock Reassessment Septic shock perfusion: reassessment completed Caprini VTE Risk Assessment Caprini VTE Risk Assessment: Mod/High Risk (score >= 2) Caprini Risk Assessment Model Point Value = 1 Point Value = 2 Point Value = 3 Point Value = 5 Age 41-60 Minor surgery BMI > 25 kg/m2 Swollen legs Varicose veins or History of unexplained or recurrent spontaneous Oral contraceptives or hormone replacement Sepsis (< 1 month) Serious lung disease, including pneumonia (< 1 month) Abnormal pulmonary function Acute myocardial infarction Congestive heart failure (< 1 month) History of inflammatory bowel disease Medical patient at bed rest Age 61-74 Arthroscopic surgery Major open surgery (> 45 min) Laparoscopic surgery (> 45 min) Malignancy Confined to bed (> 72 hours) Immobilizing plaster cast Central venous access Age >= 75 History of VTE Family history of VTE Factor V Leiden Prothrombin [id number] Lupus anticoagulant Anticardiolipin antibodies Elevated serum homocysteine Heparin-induced thrombocytopenia Other congenital or acquired thrombophilia Stroke (< 1 month) Elective arthroplasty Hip, pelvis, or leg fracture Acute spinal cord injury (< 1 month) Prophylaxis Regimen Total Risk Factor Score Risk Level Prophylaxis Regimen 0-1 Low Early ambulation 2 Moderate Order ONE of the following: *Sequential Compression Device (SCD) *Heparin 5000 units SQ BID 3-4 Higher Order ONE of the following medications: *Heparin 5000 units SQ TID *Enoxaparin/Lovenox 40 mg SQ daily (WT < 150 kg, CrCl > 30 mL/min) *Enoxaparin/Lovenox 30 mg SQ daily (WT < 150 kg, CrCl > 10-29 mL/min) *Enoxaparin/Lovenox 30 mg SQ BID (WT < 150 kg, CrCl > 30 mL/min) AND/OR *Sequential Compression Device (SCD) 5 or more Highest Order ONE of the following medications: *Heparin 5000 units SQ TID (Preferred with Epidurals) *Enoxaparin/Lovenox 40 mg SQ daily (WT < 150 kg, CrCl > 30 mL/min) *Enoxaparin/Lovenox 30 mg SQ daily (WT < 150 kg, CrCl > 10-29 mL/min) *Enoxaparin/Lovenox 30 mg SQ BID (WT < 150 kg, CrCl > 30 mL/min) AND *Sequential Compression Device (SCD) Assessment and Plan Assessment and Plan 66 y/o female with: Acute on chronic resp failure requiring BIPAP Morbid obesity OSAS COPD Pneumonia Sepsis D mellitus H/o CHF Encephalopathy Plan: Neuro: Follow neuro status. BIPAP for OSAS. Cardiovascular: continue cardiac meds. Lasix 40mg IV now. Pulm: Continue BIPAP, bronchodilators, solumedrol GI/ liver: NPO till improvement in resp status Renal/ : Diurese, Strict I/O, monitor/ replete electrolytes, follow BUN/ Cr Heme: Follow CBC ID: Continue empiric Abx - cefepime/ zithromax Endocrine: SSI for glycemic control. Check TSH Prophylaxis: Pepcid, SCDs/ lovenox Condition critical. May require intubation if she fails BIPAP. Time spent on critical care excluding procedures: 50 minutes Dwayne Nix MD Aug 11, 2017 02:42
[2017-08-11] MEDS: RESP: ALBUTEROL 2.5 MG/IPRATROPIUM 0.5 MG NEB (SCH) NEB ×6 (02:57→23:43)
[2017-08-11] MEDS ORDERED: CHLORHEXIDINE GLUCONATE 2 % 1 PACK (2 CLOTHS) TOP SCH (04:00)
[2017-08-11] MEDS: CHLORHEXIDINE GLUCONATE 2 % 1 PACK (2 CLOTHS) TOP SCH (04:00)
[2017-08-11 05:21] LABS: AUTOMATED NEUTROPHIL # 14.5 TH/MM3 (1.8-7.7); BASOPHIL % 0.1 % (0.0-2.0); HEMATOCRIT 39.1 % (35.0-46.0); HEMOGLOBIN 11.4 GM/DL (11.6-15.3); LYMPHOCYTE # 0.3 TH/MM3 (1.0-4.8); MEAN CELL VOLUME 76.1 FL (80.0-100.0); MEAN CORPUSCULAR HEMOGLOBIN 22.2 PG (27.0-34.0); MEAN PLATELET VOLUME 8.2 FL (7.0-11.0); MONO % 1.3 % (0.0-8.0); MONOCYTE # 0.2 TH/MM3 (0-0.9); NEUT % 96.6 % (16.0-70.0); PLATELET COUNT 335 TH/MM3 (150-450); RED BLOOD COUNT 5.13 MIL/MM3 (4.00-5.30); RED CELL DISTRIBUTION WIDTH 17.7 % (11.6-17.2)
[2017-08-11 05:22] LABS: MEAN CORPUSCULAR HGB CONC 29.2 % (32.0-36.0)
[2017-08-11 05:39] LABS: ALBUMIN 3.2 GM/DL (3.4-5.0); ALKALINE PHOSPHATASE 116 U/L (45-117); ALT (GPT) 146 U/L (10-53); AST (GOT) 147 U/L (15-37); BICARBONATE 31.3 MEQ/L (21.0-32.0); BLOOD UREA NITROGEN 44 MG/DL (7-18); CALCIUM 7.9 MG/DL (8.5-10.1); CHLORIDE 97 MEQ/L (98-107); CREATININE 1.54 MG/DL (0.50-1.00); GLOMERULAR FILTRATION RATE 41 ML/MIN (>89); GLUCOSE,RANDOM 342 MG/DL (74-106); SODIUM (NA) 133 MEQ/L (136-145); TOTAL BILIRUBIN ADULT 0.3 MG/DL (0.2-1.0); TOTAL PROTEIN 8.1 GM/DL (6.4-8.2)
[2017-08-11] MEDS ORDERED: ENOXAPARIN SODIUM 40 MG/0.4 ML SYRINGE SQ SCH (06:00)
[2017-08-11] MEDS: methylPREDNISolone SOD SUCC 40 MG/1 ML VIAL IV PUSH SCH ×3 (07:03→17:36)
[2017-08-11] MEDS ORDERED: INSULIN ASPART SUPPLEMENTAL SCALE SQ SCH (08:00)
[2017-08-11] MEDS: CHLORHEXIDINE 0.12% (ORAL KIT) 15 ML CUP MT SCH ×2 (08:00→20:00)
--- NOTE | 2017-08-11 08:22 | PD ---
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 Data Data Last Documented VS Vital Signs Date Time Temp Pulse Resp B/P (MAP) Pulse Ox O2 Delivery O2 Flow Rate FiO2 08/10/17 22:02 98 20 143/71 (95) BiPAP 08/10/17 22:00 96 50 08/10/17 19:08 15.00 08/10/17:18 98.0 Orders Orders Electrocardiogram (08/10/17:19) Basic Metabolic Panel (Bmp) (08/10/17 18:) Ckmb (Isoenzyme) Profile (08/10/17:) Complete Blood Count With Diff (08/10/17:) Magnesium (Mg) (08/10/17:) Prothrombin Time / Inr (Pt) (08/10/17:) Act Partial Throm Time (Ptt) (08/10/17:) Troponin I (08/10/17 18:) Ecg Monitoring (08/10/17 18:19) Bilateral Bp Monitoring (08/10/17:) Iv Access Insert/Monitor (08/10/17:) Oximetry (08/10/17:) Oxygen Administration (08/10/17 18:) Sodium Chloride 0.9% Flush (Ns Flush) (08/10/17 18:30) Chest, Pa & Lat (08/10/17 18:) Chest, Single Ap (08/10/17 19:23) Methylprednisolone So Succ Inj (Solumedr (08/10/17 19:30) Albuterol-Ipratropium Neb (Duoneb Neb) (08/10/17 19:30) Vancomycin Inj (Vancomycin Inj) (08/10/17 20:30) Piperacil-Tazo 3.375 Gm Premix (Zosyn 3. (08/10/17 20:30) Sodium Chlor 0.9% 1000 Ml Inj (Ns 1000 M (08/10/17 20:30) CKMB (08/10/17 19:58) CKMB% (08/10/17 19:58) Sodium Chlor 0.9% 1000 Ml Inj (Ns 1000 M (08/10/17 21:45) Admit Order (Ed Use Only) (08/10/17 22:22) Labs Laboratory Tests Test 08/10/17 18:35 08/10/17 19:58 White Blood Count 13.0 TH/MM3 Red Blood Count 5.18 MIL/MM3 Hemoglobin 11.4 GM/DL Hematocrit 39.4 % Mean Corpuscular Volume 76.0 FL Mean Corpuscular Hemoglobin 22.0 PG Mean Corpuscular Hemoglobin Concent 29.0 % Red Cell Distribution Width 17.4 % Platelet Count 352 TH/MM3 Mean Platelet Volume 8.1 FL Neutrophils (%) (Auto) 59.8 % Lymphocytes (%) (Auto) 32.9 % Monocytes (%) (Auto) 5.4 % Eosinophils (%) (Auto) 1.2 % Basophils (%) (Auto) 0.7 % Neutrophils # (Auto) 7.8 TH/MM3 Lymphocytes # (Auto) 4.3 TH/MM3 Monocytes # (Auto) 0.7 TH/MM3 Eosinophils # (Auto) 0.2 TH/MM3 Basophils # (Auto) 0.1 TH/MM3 CBC Comment DIFF FINAL Differential Comment Prothrombin Time 10.3 SEC Prothromb Time International Ratio 1.0 RATIO Activated Partial Thromboplast Time 25.4 SEC Blood Urea Nitrogen 37 MG/DL Creatinine 1.50 MG/DL Random Glucose 222 MG/DL Calcium Level 8.4 MG/DL Magnesium Level 2.8 MG/DL Sodium Level 133 MEQ/L Potassium Level 5.5 MEQ/L Chloride Level 94 MEQ/L Carbon Dioxide Level 33.7 MEQ/L Anion Gap 5 MEQ/L Estimat Glomerular Filtration Rate 42 ML/MIN Total Creatine Kinase 123 U/L Creatine Kinase MB 2.2 NG/ML Troponin I 0.04 NG/ML Thyroid Stimulating Hormone 3rd Gen 0.039 uIU/ML [facility] Medical Record Reviewed: Yes Supervised Visit with MARLYN: No Interpretation(s) Last Impressions Chest X-Ray 08/10/171922 Signed Impressions: Service Date/Time: Thursday, August 10, 2017 19:27 - CONCLUSION: 1. There are new consolidative infiltrates in the right middle lobe. 2. Stable left lower lobe consolidation. Smooth Man MD Chest X-Ray 08/10/171818 Signed Impressions: Service Date/Time: Thursday, August 10, 2017 18:47 - CONCLUSION: 1. New right middle lobe infiltrate. Stable partially consolidative infiltrate left lower lung. Smooth Man MD Laboratory Tests Test 08/10/17 18:35 08/10/17 19:58 White Blood Count 13.0 TH/MM3 Red Blood Count 5.18 MIL/MM3 Hemoglobin 11.4 GM/DL Hematocrit 39.4 % Mean Corpuscular Volume 76.0 FL Mean Corpuscular Hemoglobin 22.0 PG Mean Corpuscular Hemoglobin Concent 29.0 % Red Cell Distribution Width 17.4 % Platelet Count 352 TH/MM3 Mean Platelet Volume 8.1 FL Neutrophils (%) (Auto) 59.8 % Lymphocytes (%) (Auto) 32.9 % Monocytes (%) (Auto) 5.4 % Eosinophils (%) (Auto) 1.2 % Basophils (%) (Auto) 0.7 % Neutrophils # (Auto) 7.8 TH/MM3 Lymphocytes # (Auto) 4.3 TH/MM3 Monocytes # (Auto) 0.7 TH/MM3 Eosinophils # (Auto) 0.2 TH/MM3 Basophils # (Auto) 0.1 TH/MM3 CBC Comment DIFF FINAL Differential Comment Prothrombin Time 10.3 SEC Prothromb Time International Ratio 1.0 RATIO Activated Partial Thromboplast Time 25.4 SEC Blood Urea Nitrogen 37 MG/DL Creatinine 1.50 MG/DL Random Glucose 222 MG/DL Calcium Level 8.4 MG/DL Magnesium Level 2.8 MG/DL Sodium Level 133 MEQ/L Potassium Level 5.5 MEQ/L Chloride Level 94 MEQ/L Carbon Dioxide Level 33.7 MEQ/L Anion Gap 5 MEQ/L Estimat Glomerular Filtration Rate 42 ML/MIN Total Creatine Kinase 123 U/L Creatine Kinase MB 2.2 NG/ML Troponin I 0.04 NG/ML Thyroid Stimulating Hormone 3rd Gen 0.039 uIU/ML Differential Diagnosis Differential diagnosis includes congestive heart failure, pneumonia, hypoxia, respiratory distress. Narrative Course The fish bait processing supervisor, Dr. Martin, contacted me in the emergency department requesting that the patient be intubated in the emergency department for worsening chest x-ray findings and worsening ABG with increasing PCO2. The patient was evaluated, she is on BiPAP at 90% with a heart rate in the 90s. The patient was visibly short of breath, I had a discussion with the patient regarding the risk and benefits of intubation. She is agreeable to intubation. The patient was intubated using rapid sequence intubation with rocuronium 100 mg, patient had elevated potassium so succinylcholine was not used, and etomidate 20 mg. The patient had a 8.0 endotracheal tube placed at 23 cm, right lip. NG tube was placed. Post intubation chest x-ray was obtained. The patient was placed on propofol for sedation. Critical Care Narrative Aggregate critical care time was 35 minutes. Time to perform other separately billable procedures was not included in the critical care time. My time did not include minutes spent treating any other patients simultaneously or on activities that did not directly contribute to the patient's treatment. The services I provided to this patient were to treat and/or prevent clinically significant deterioration that could result in: Anoxia, hypoxia, aspiration, . I provided critical care services requiring my management, as noted below: Chart data review, documentation time, medication orders and management, vital sign assessments/reviewing monitor data, ordering and reviewing lab tests, ordering and interpreting/reviewing x-rays and diagnostic studies, care of the patient and discussion of the patient with the admitting physicians. Procedures Procedure Narrative After the risks and benefits were discussed the following procedure was performed: INTUBATION: The patient was put in optimal position for the procedure. Rapid sequence intubation was initiated by me using 20 milligrams of etomidate IV and 100 milligrams of rocuronium IV. The patient was intubated with a 8-0 cuffed endotracheal tube. Tube placement was confirmed by visualization of the tube and balloon passing through the cords, capnometry and subsequent chest x-ray. Breath sounds were equal and well aerated bilaterally postintubation. No breath sounds over stomach. Patient tolerated procedure well. Physician Communication Physician Communication The patient is admitted to the fish bait processing supervisor. Patient went from BiPAP, to being intubated and placed on a ventilator for worsening respiratory distress. Diagnosis Primary Impression: Healthcare-associated pneumonia Additional Impression: Respiratory distress Admitting Information Admitting Physician Requests: Admit Condition: Stable Kurtis Cox MD Aug 11, 2017 08:22
[2017-08-11] MEDS ORDERED: ROCURONIUM INJ 50 MG/5 ML VIAL ONE (08:29)
[2017-08-11] MEDS ORDERED: ROCURONIUM INJ 100 MG/10 ML VIAL IV ONE (08:30)
[2017-08-11] MEDS ORDERED: ETOMIDATE 20 MG/10 ML VIAL IV PUSH ONE (08:30)
[2017-08-11] MEDS: SODIUM CHLOR 0.9% 1000 ML INJ 1,000 ML IV SCH (08:46)
[2017-08-11] MEDS ORDERED: FAMOTIDINE 20 MG/2 ML VIAL IV PUSH SCH (09:00)
[2017-08-11] MEDS ORDERED: BUDESONIDE-FORMOTEROL 160/4.5 MCG INHALER INH SCH (09:00)
[2017-08-11] MEDS: SODIUM CHLORIDE 0.9% FLUSH 10 ML FLUSH IV FLUSH SCH ×4 (09:00→20:55)
[2017-08-11] MEDS ORDERED: HEPARIN SODIUM - SQ 10,000 UNITS/ML VIAL SQ SCH (09:00)
[2017-08-11] MEDS: DOCUSATE SODIUM 50 MG/SENNA 8.6 MG TAB PO SCH ×2 (09:00→20:54)
[2017-08-11] MEDS: FAMOTIDINE 20 MG TAB PO SCH ×2 (09:00→20:54)
[2017-08-11] MEDS ORDERED: PROPOFOL 1000 MG/100 ML INJ 100 ML IV PRN (09:00)
[2017-08-11] MEDS: FUROSEMIDE 40 MG TAB PO SCH (09:24)
[2017-08-11] MEDS: ASPIRIN 81 MG CHEW TAB PO SCH (09:24)
[2017-08-11] MEDS: FOLIC ACID 1 MG TAB PO SCH (09:24)
[2017-08-11] MEDS: CLOPIDOGREL 75 MG TAB PO SCH (09:24)
[2017-08-11] MEDS: GABAPENTIN 300 MG CAP PO SCH ×2 (09:25→20:54)
[2017-08-11] MEDS: SERTRALINE HCL 100 MG TAB PO SCH (09:25)
[2017-08-11] MEDS: CEFEPIME INJ 1,000 MG in SODIUM CHLORIDE 0.9% INJ 100 ML IV SCH ×2 (09:26→20:54)
--- NOTE | 2017-08-11 09:43 | RADRPT ---
EXAM DATE/TIME: 08/11/2017 08:55 [facility] COMPARISON: CHEST SINGLE AP, August 10, 2017, 19:27. INDICATIONS : Post intubation. MEDICAL HISTORY : Hypertension. Cardiovascular disease. Chronic obstructive pulmonary disease. Diabetes SURGICAL HISTORY : Tubal ligation. Hysterectomy ENCOUNTER: Subsequent ACUITY: 1 day PAIN SCORE: Non-responsive. LOCATION: Bilateral chest FINDINGS: An endotracheal tube has its tip 2 cm above the teresita. A nasogastric has its tip below the diaphragm . The heart is enlarged. Scattered infiltrates are noted bilaterally and are stable. CONCLUSION: Scattered stable infiltrates. Cardiomegaly. Endotracheal tube tip approximately 2 cm above the teresita . Elpidio Hernandez MD on August 11, 2017 at 9:40 Board Certified Radiologist. This report was verified electronically.
--- NOTE | 2017-08-11 10:44 | PD.CONS ---
Consult Service Palliative Care Consult Requested By Dr Nix . Primary Care Physician Luis Parry MD Reason for Consultation a. To assist with evaluation and management of symptoms including: b. To assist medical decision maker(s) with: better understanding of current medical conditions; weighing benefits/burdens of medical treatment options; making medical treatment decisions. HPI History of Present Illness This 66-year-old patient presented to the ED on 08/10/17, via EMS with reports of cardiac arrest, status post successful resuscitation. EMS reported patient resides in a nursing facility ([facility]) . Facility staff reported started the evening bedtime routine, patient was found apneic and pulseless CPR was started. Facility reported pulse returned so CPR stopped. EMS reported at their arrival initial evaluation patient was pulseless, agonal respirations and CPR was again started. CPR continued 5 minutes, patient with ROSC. I/O line inserted, patient became responsive. Upon ED arrival patient noted to be awake, lucid. She reported chronic shortness of breath that was no different than usual that day. She reported her chest "a little tired ". Her only complaint was pain in the right lower extremity. She reported her leg down over as a child and she had chronic pain since. * ED: EKG nonspecific ST segment depression anteriorly lateral, unchanged from prior. Sinus rhythm 102. Per ED review patient noted to have frequent ED visits for chest pain, had recent cardiac workup including PE evaluation which was negative. Later during ED course patient and O 3 and wanting to go home. She is noted to have some shortness of breath even post nebulizer O2 sat 85% on 4 L. CXR is notable for new consolidative infiltrate right middle lobe, stable left lower lobe consolidation. O2 sats improved to 95% on BiPAP 40%. She was started on empiric comfort for HCAP. WBC 13. BUN 37/creatinine 1.5, more elevated that baseline. Patient to be admitted for further evaluation and management. * Planned for admission to ICU, BiPAP continued, may require intubation if respiratory status worsens. Pulmonology consulted. Palliative care consulted to assist with clarification of goals of treatment. Patient CXR worsening 08/11 , worsening ABG, requiring BiPAP 90%, patient visibly short of breath. ED physician notes discussion with patient regarding intubation patient amenable to intubation. Patient was intubated in the ED 08, NG tube was placed. Per review of EMR patient has previously required intubation for respiratory failure 07/2016, 06/2016. She has living in SNF since at least 2014. Pt seen in ED room no visitors present. Sedated w diprivan, on Mech vent. She does arouse to touch/verbal stimuli, she appears restless w stimuli, does not consistently follow commands. Following exam call to sister Melissa -- she is not available during the day today for family meeting, she advises that she is working on arrangements for their mother who has just in the past few days. There is no other family. She will call me back later today to set up a meeting possibly for tomorrow to further discuss conditions, goals. Function/Cognitive Trajectory Long-term resident of [facility]. 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 Review of Systems ROS Limitations: Clinical Condition, Intubated Past Family Social History Coded Allergies: *MDRO Multi-Drug Resistant Organism (Verified Adverse Reaction, Unknown, MRSA, 08/10/17) MRSA PCR positive - 06/28/2015 & 06/03/16 Past Medical History Rheumatoid arthritis Anxiety Depression COPD-chronic O2 3 L (PFT 07/2016 notes severe restrictive disease) CHF CAD Diabetes Diverticulitis GERD Glaucoma Hypertension Encephalopathy FL Sleep apnea Obesity . Past Surgical History Cataract surgery Iliac stent right Partial hysterectomy section Cyst removal breast right Reported Medications Lisinopril 5 Mg Tab 5 Mg PO DAILY Isosorbide Mononitrate ER (Isosorbide Mononitrate) 30 Mg Refugio 30 Mg PO DAILY@07 Gabapentin 300 Mg Cap 300 Mg PO BID Silver Sulfadiazine 1 % Cream..g. Artificial Tears (Dextran 70/Hypromellose) 1 Each Droperette 2 Drop EACH EYE Q4HR PRN Milk of Magnesia Liq (Magnesium Hydroxide) 400 Mg/5 Ml Susp 30 Ml PO HS PRN Ativan (Lorazepam) 0.5 Mg Tab 0.5 Mg PO Q8H PRN Zantac (Ranitidine HCl) 150 Mg Tab 150 Mg PO BID Acidophilus Probiotic (Lactobacillus) 100 Mg (1 Billion Cell) Cap 1 Cap PO BID Magnesium Oxide 400 Mg Tab 400 Mg PO DAILY Lantus Inj (Insulin Glargine) 1,000 Unit/10 Ml Vial 10 Units SQ HS Folic Acid 1 Mg Tablet 1 Mg PO DAILY Ferrousul (Ferrous Sulfate) 325 Mg (65 Mg Iron) Tab 325 Mg PO DAILY Tylenol (Acetaminophen) 325 Mg Tab 650 Mg PO Q4H PRN Zoloft (Sertraline HCl) 100 Mg Tab 100 Mg PO DAILY Furosemide 40 Mg Tab 40 Mg PO DAILY Potassium Chloride ER (Potassium Chloride) 10 Meq Cap 10 Meq PO DAILY Novolog Inj (Insulin Aspart) 1,000 Unit/10 Ml Vial 10 SQ DAILY Sliding Scale as directed. Plavix (Clopidogrel Bisulfate) 75 Mg Tab 75 Mg PO DAILY Multi-Vitamin/Minerals (Multiple Vitamins W/ Minerals) 1 Tab Tab 1 Tab PO DAILY Dulcolax Supp (Bisacodyl) 10 Mg Supp 10 Mg RECTAL DAILY PRN Magnesium Citrate Liq (Magnesium Citrate) 300 Ml Liq 296 Ml PO IN THE AM PRN Atorvastatin (Atorvastatin Calcium) 40 Mg Tab 40 Mg PO HS Aspirin 81 Mg Chew 81 Mg PO DAILY Duoneb (Ipratropium-Albuterol Neb) 0.5-2.5 Mg/3 Ml Neb 3 Ml NEB BID / Current Medications Medications (Trade) Dose Ordered Sig/Giovanna Route Start Time Stop Time Status Last Admin (Duoneb Neb) 1 ampule Q2HR NEB PRN NEB 08/10/17 22:30 (Symbicort 160-4.5 Mcg Inh) 2 puff Q12HR INH 08/11/17 09:00 Pharmacy Profile Note 0 ml @ 0 mls/hr UNSCH OTHER 08/10/17 22:30 Cefepime HCl 1000 mg/Sodium Chloride 100 ml @ 200 mls/hr Q12H IV 08/11/17 09:00 08/11/17 09:26 (D50w (Vial) Inj) 50 ml UNSCH PRN IV PUSH 08/10/17 22:30 (Glucagon Inj) 1 mg UNSCH PRN OTHER 08/10/17 22:30 (NovoLOG SUPPLEMENTAL SCALE) 1 ACHS SLIDING SCALE SQ 08/11/17 08:00 08/11/17 09:44 Sodium Chloride 1,000 ml @ 50 mls/hr Q20H IV 08/10/17 22:28 08/11/17 08:46 (NS Flush) 2 ml UNSCH PRN IV FLUSH 08/10/17 22:30 (NS Flush) 2 ml BID IV FLUSH 08/11/17 09:00 (Zofran Inj) 4 mg Q6H PRN IVP 08/10/17 22:30 (Heparin Inj) 5,000 units Q12H SQ 08/11/17 09:00 08/11/17 09:25 (Tylenol) 650 mg Q6H PRN PO 08/10/17 22:30 (Madeline-Colace) 1 tab BID PO 08/11/17 09:00 (Milk Of Magnesia Liq) 30 ml Q12H PRN PO 08/10/17 22:30 (Senokot) 17.2 mg Q12H PRN PO 08/10/17 22:30 (Dulcolax Supp) 10 mg DAILY PRN RECTAL 08/10/17 22:30 (Lactulose Liq) 30 ml DAILY PRN PO 08/10/17 22:30 (Aspirin Chew) 81 mg DAILY PO 08/11/17 09:00 08/11/17 09:24 (Plavix) 75 mg DAILY PO 08/11/17 09:00 08/11/17 09:24 (Folate) 1 mg DAILY PO 08/11/17 09:00 08/11/17 09:24 (Lasix) 40 mg DAILY PO 08/11/17 09:00 08/11/17 09:24 (Neurontin) 300 mg BID PO 08/11/17 09:00 08/11/17 09:25 (Levemir Inj) 10 units HS SQ 08/11/17 21:00 (Ativan) 0.5 mg Q8H PRN PO 08/10/17 22:30 (Zoloft) 100 mg DAILY PO 08/11/17 09:00 08/11/17 09:25 (Pepcid) 10 mg BID PO 08/11/17 09:00 (NS Flush) 2 ml UNSCH PRN IV FLUSH 08/11/17 02:15 (NS Flush) 2 ml BID IV FLUSH 08/11/17 09:00 (Tylenol) 650 mg Q6H PRN PO 08/11/17 02:15 (Duoneb Neb) 1 ampule Q4HR NEB NEB 08/11/17 04:00 08/11/17 07:18 (Duoneb Neb) 1 ampule Q2HR NEB PRN INH 08/11/17 02:15 (Peridex 0.12% Liq) 15 ml BID@08,20 MT 08/11/17 08:00 (Pepcid Inj) 20 mg Q12HR IV PUSH 08/11/17 09:00 08/11/17 09:25 Miscellaneous Information 1 Q361D XX 08/11/17 02:15 (Chlorhexidine 2% Cloth) 3 pack Taper DAILY@04 TOP 08/11/17 04:00 08/07/18 03:59 (Chlorhexidine 2% Cloth) 3 pack UNSCH PRN TOP 08/11/17 02:15 Azithromycin 500 mg/Sodium Chloride 250 ml @ 250 mls/hr Q24H IV 08/11/17 23:00 (SoluMEDROL INJ) 80 mg Q8H IV PUSH 08/11/17 03:00 08/11/17 07:03 Propofol 100 ml @ 0 mls/hr TITRATE PRN IV 08/11/17 09:00 08/11/17 09:04 (Lovenox Inj) 30 mg Q24H SQ 08/12/17 07:00 Family History Patient unable to provide, per EMR: no family history of heart disease. Mother recently per sister. Substance Use Tobacco: Quit smoking 7 years ago Alcohol: None Prescription med abuse: None Illicits: None . Psychosocial History Not . No children. Mother and sister were primary support. Mother recently in the past few days. Sister only remaining family. Long- term resident of [facility]. . Spiritual/Cultural Factors Sikhism . Living Will: Never completed Health Care Surrogate: Never completed Durable Power of Tool Designer Apprentice: Never completed Ethical and Legal Issues Patient not . No children. No known HCS or advanced directive. Mother recently . Sister Better reports only living family. Per [place] statutes sister Melissa would be appropriate legal proxy. Physical Exam Vital Signs Date Time Temp Pulse Resp B/P (MAP) Pulse Ox O2 Delivery O2 Flow Rate FiO2 08/11/17 08:48 100 08/11/17 08:46 98 100 08/11/17 07:19 95 90 08/11/17 07:05 91 15 116/60 (78) 94 BiPAP 90 08/11/17 06:00 88 15 148/82 (104) 94 BiPAP 08/11/17 05:00 91 15 137/79 (98) 96 BiPAP 90 08/11/17 04:00 91 15 123/54 (77) 95 BiPAP 90 08/11/17 03:27 93 90 08/11/17 03:00 85 17 114/57 (76) 95 BiPAP 90 08/11/17 02:01 97 15 128/69 (88) 92 BiPAP 90 08/11/17 01:20 87 15 125/61 (82) 90 BiPAP 90 08/11/17 00:30 95 90 08/10/17 23:06 101 17 134/59 (84) 96 BiPAP 90 08/10/17 22:02 98 20 143/71 (95) BiPAP 08/10/17 22:00 96 50 08/10/17 19:08 104 22 109/55 (73) 98 Non-Rebreather 15.00 08/10/17 18:31 126/79 (95) 139/97 (111) 08/10/17 18:30 99 24 95 Non-Rebreather 15.00 08/10/17 18:23 24 88 Room Air 08/10/17 18:23 95 Non-Rebreather 15.00 08/10/17 18:18 98.0 100 20 126/76 (93) 95 Exam CONSTITUTIONAL/GENERAL: This is an obese patient, sedated on mechanical vent. TUBES/LINES/DRAINS: Peripheral IV bilateral hands/wrist, Wise catheter, ET tube , NG tube, soft wrist restraints bilateral SKIN: No jaundice, rashes, or lesions. + Several small scattered chronic appearing wounds to right lower extremity, significant scarring and deformity ( chronic? ) To right lower leg, foot. Skin warm and dry. HEAD: Atraumatic. Normocephalic. EYES: Extraocular motions intact. No scleral icterus. No injection or drainage. Fundi not examined. ENT: Nose without bleeding or purulent drainage. Unable to visualize oropharynx secondary to ET tube. NECK: Trachea midline. Supple, nontender. No palpable thyroid enlargement or nodularity. CARDIOVASCULAR: Regular rate and rhythm without murmur. No JVD. Peripheral pulses symmetric-right pedal faint. Trace edema bilateral upper extremities. RESPIRATORY/CHEST: Symmetric, unlabored respirations via ET tube to mechanical vent, observe spontaneous coughing. Clear , diminished bases. GASTROINTESTINAL: Abdomen soft, obese, no apparent tenderness, nondistended. No palpable masses. Bowel sounds present. GENITOURINARY: Without palpable bladder distension. Wise catheter in place clear yellow urine present. MUSCULOSKELETAL: Extremities without clubbing, cyanosis. Trace edema upper extremities. No joint tenderness or effusion noted. + deformity, scarring right lower extremity. NEUROLOGICAL: Sedated on mechanical vent. Awaken some with touch and verbal stimuli. Somewhat restless was stimuli. Moving all 4 extremities spontaneously with stimuli. Consistently following commands. Eyes open no tracking examiner. PSYCHIATRIC: Limited assessment secondary to clinical condition, mild restlessness with stimuli Diagnostic Tests Laboratory Laboratory Tests Test 08/10/17 18:35 08/10/17 19:58 08/11/17 00:00 08/11/17 04:38 White Blood Count 13.0 TH/MM3 (4.0-11.0) 15.0 TH/MM3 (4.0-11.0) Red Blood Count 5.18 MIL/MM3 (4.00-5.30) 5.13 MIL/MM3 (4.00-5.30) Hemoglobin 11.4 GM/DL (11.6-15.3) 11.4 GM/DL (11.6-15.3) Hematocrit 39.4 % (35.0-46.0) 39.1 % (35.0-46.0) Mean Corpuscular Volume 76.0 FL (80.0-100.0) 76.1 FL (80.0-100.0) Mean Corpuscular Hemoglobin 22.0 PG (27.0-34.0) 22.2 PG (27.0-34.0) Mean Corpuscular Hemoglobin Concent 29.0 % (32.0-36.0) 29.2 % (32.0-36.0) Red Cell Distribution Width 17.4 % (11.6-17.2) 17.7 % (11.6-17.2) Platelet Count 352 TH/MM3 (150-450) 335 TH/MM3 (150-450) Mean Platelet Volume 8.1 FL (7.0-11.0) 8.2 FL (7.0-11.0) Neutrophils (%) (Auto) 59.8 % (16.0-70.0) 96.6 % (16.0-70.0) Lymphocytes (%) (Auto) 32.9 % (9.0-44.0) 2.0 % (9.0-44.0) Monocytes (%) (Auto) 5.4 % (0.0-8.0) 1.3 % (0.0-8.0) Eosinophils (%) (Auto) 1.2 % (0.0-4.0) 0.0 % (0.0-4.0) Basophils (%) (Auto) 0.7 % (0.0-2.0) 0.1 % (0.0-2.0) Neutrophils # (Auto) 7.8 TH/MM3 (1.8-7.7) 14.5 TH/MM3 (1.8-7.7) Lymphocytes # (Auto) 4.3 TH/MM3 (1.0-4.8) 0.3 TH/MM3 (1.0-4.8) Monocytes # (Auto) 0.7 TH/MM3 (0-0.9) 0.2 TH/MM3 (0-0.9) Eosinophils # (Auto) 0.2 TH/MM3 (0-0.4) 0.0 TH/MM3 (0-0.4) Basophils # (Auto) 0.1 TH/MM3 (0-0.2) 0.0 TH/MM3 (0-0.2) CBC Comment DIFF FINAL DIFF FINAL Differential Comment Prothrombin Time 10.3 SEC (9.8-11.6) Prothromb Time International Ratio 1.0 RATIO Activated Partial Thromboplast Time 25.4 SEC (24.3-30.1) Blood Urea Nitrogen 37 MG/DL (7-18) 44 MG/DL (7-18) Creatinine 1.50 MG/DL (0.50-1.00) 1.54 MG/DL (0.50-1.00) Random Glucose 222 MG/DL (74-106) 342 MG/DL (74-106) Calcium Level 8.4 MG/DL (8.5-10.1) 7.9 MG/DL (8.5-10.1) Magnesium Level 2.8 MG/DL (1.5-2.5) Sodium Level 133 MEQ/L (136-145) 133 MEQ/L (136-145) Potassium Level 5.5 MEQ/L (3.5-5.1) 6.2 MEQ/L (3.5-5.1) Chloride Level 94 MEQ/L (98-107) 97 MEQ/L (98-107) Carbon Dioxide Level 33.7 MEQ/L (21.0-32.0) 31.3 MEQ/L (21.0-32.0) Anion Gap 5 MEQ/L (5-15) 5 MEQ/L (5-15) Estimat Glomerular Filtration Rate 42 ML/MIN (>89) 41 ML/MIN (>89) Total Creatine Kinase 123 U/L (26-192) Creatine Kinase MB 2.2 NG/ML (0.5-3.6) Troponin I 0.04 NG/ML (0.02-0.05) Thyroid Stimulating Hormone 3rd Gen 0.039 uIU/ML (0.358-3.740) Blood Gas Puncture Site RT FOOT Blood Gas Patient Temperature 98.6 Venous Blood pH 7.25 (7.360-7.400) Venous Blood Partial Pressure CO2 67 mmHg (44-48) Venous Blood Partial Pressure O2 29 mmHg (35-40) Venous Blood HCO3 28 mmol/L (22-26) Venous Blood Oxygen Saturation 45 % (70-76) Venous Blood Oxygen Content 7.0 Vol % (9.0-17.0) Venous Blood Base Excess 1.8 mmol/L (-2-2) Oxygen Delivery Device BIPAP Blood Gas Ventilator Setting Blood Gas Inspired Oxygen 50 % Total Protein 8.1 GM/DL (6.4-8.2) Albumin 3.2 GM/DL (3.4-5.0) Alkaline Phosphatase 116 U/L (45-117) Aspartate Amino Transf (AST/SGOT) 147 U/L (15-37) Alanine Aminotransferase (ALT/SGPT) 146 U/L (10-53) Total Bilirubin 0.3 MG/DL (0.2-1.0) B-Type Natriuretic Peptide 393 PG/ML (0-100) Test 08/11/17 06:00 Blood Gas Puncture Site RT BRACHIAL Blood Gas Patient Temperature 98.6 Blood Gas HCO3 31 mmol/L (22-26) Blood Gas Base Excess 4.2 mmol/L (-2-2) Blood Gas Oxygen Saturation 90 % (90-100) Arterial Blood pH 7.25 (7.380-7.420) Arterial Blood Partial Pressure CO2 73 mmHg (38-42) Arterial Blood Partial Pressure O2 68 mmHG (61-120) Arterial Blood Oxygen Content 13.8 Vol % (12.0-20.0) Arterial Blood Carboxyhemoglobin 1.2 % (0-4) Arterial Blood Methemoglobin 0.4 % (0-2) Blood Gas Hemoglobin 10.8 G/DL (12.0-16.0) Oxygen Delivery Device BIPAP Blood Gas Ventilator Setting IPAP10 EPAP 6 Blood Gas Inspired Oxygen 90 % Result Diagram: 08/11/17 0438 08/11/17 0438 Imaging Last 24 hours Impressions Chest X-Ray 08/11/17 0000 Signed Impressions: Service Date/Time: Friday, August 11, 2017 08:55 - CONCLUSION: Scattered stable infiltrates. Cardiomegaly. Endotracheal tube tip approximately 2 cm above the teresita. Elpidio Hernandez MD Chest X-Ray 08/10/17 1923 Signed Impressions: Service Date/Time: Thursday, August 10, 2017 19:27 - CONCLUSION: 1. There are new consolidative infiltrates in the right middle lobe. 2. Stable left lower lobe consolidation. Smooth Man MD Chest X-Ray 08/10/[id number] Signed Impressions: Service Date/Time: Thursday, August 10, 2017 18:47 - CONCLUSION: 1. New right middle lobe infiltrate. Stable partially consolidative infiltrate left lower lung. Smooth Man MD Patient/Family Conference Issues Discussed: Unable to meet with sister today. Palliative will continue to follow; tentative meeting tomorrow 08/12/17. Assessment and Plan Disease Oriented Problem List: (1) Healthcare-associated pneumonia (2) Respiratory distress (3) Chest pain (4) COPD (chronic obstructive pulmonary disease) (5) Decubitus skin ulcer (6) CHF (congestive heart failure) (7) Diabetes (8) Morbid obesity (9) Coronary artery disease (10) CHF exacerbation (11) GERD (gastroesophageal reflux disease) Symptom Scale: Pertinent Non-Medical Issues Psychosocial: Spiritual: Sikhism Legal: Patient not . No children. No known HCS or advanced directive. Mother recently . Sister Michelle reports only living family. Per [place] statutes sister Melissa would be appropriate legal proxy. Ethical issues impacting care: Important Contacts Sister Melissa Davenport [phone] Mother Rylie Ibarra [place] [phone] . Code Status: Full Code Plan * Legal decision maker: Patient not . No children. No known HCS or advanced directive. Mother recently . Sister Better reports only living family. Per [place] statutes sister Melissa would be appropriate legal proxy. * Goals: ANDREINA, briefly spoke with sister Melissa -- she is not available during the day today for family meeting, she advises that she is working on arrangements for their mother who has just in the past few days. There is no other family. She will call me back later today to set up a meeting possibly for tomorrow 08/11/17 to further discuss conditions, goals. * CODE STATUS: Full code by default * SYMPTOMS: --dyspnea- hx severe COPD, o2 dependent, + CHF. CXR = There are new consolidative infiltrates in the right middle lobe. Stable left lower lobe consolidation. intubated 82108/11/17. On empiric antibiotic coverage for healthcare associated pneumonia. Currently breathing comfortably on Diprivan for sedation on mechanical vent. --Anxiety-patient with history anxiety, potential for worsened anxiety/AMS secondary to intubation, respiratory failure. Mild restlessness currently with stimulation. Currently on Diprivan for sedation, will continue to evaluate. * Palliative care will continue to follow during hospital course as condition evolves, to assist patient/decision-maker with understanding of medical conditions, weighing benefits/burdens of treatment options, for clarification of goals of treatment. Additionally will assist with any symptoms of palliative concern Thank you for the opportunity to participate in the care of Ms. Page. Attestation To help prompt me to consider important information that might be impacting today's encounter and assessment, information from prior notes written by myself or my colleagues may have been "brought forward" into today's note. My signature on this note, however, is an attestation that I personally performed the exam, history, and/or decision-making noted today, and, unless otherwise indicated, the interactions with patient, family, and staff as well as the review of records all occurred today. I also attest that the listed assessment and stated plan reflect my best clinical judgment today based on the combination of historical information, prior notes, and today's exam/ interactions. When time spent is documented, it refers only to time spent today by the signer, or if indicated, combined time spent today by collaborating physician/nurse practitioner. Jazmyn Rodriguez Aug 11, 2017 10:44
[2017-08-11] MEDS ORDERED: ACETAMINOPHEN 650 MG/20.3 ML UDC NG PRN (12:00)
[2017-08-11] MEDS ORDERED: fentaNYL DRIP 250 ML IV PRN (12:00)
[2017-08-11] MEDS ORDERED: RESP: ALBUTEROL 2.5 MG/3 ML NEB (PRN) NEB (12:00)
--- NOTE | 2017-08-11 13:12 | HHI.CCPN ---
Subjective Remarks/Hospital Course 66yo F from [facility] with PMH of HTN, DM, COPD on home O2, OK, CHF, morbid obesity was brought here from assisted for supposed cardiac arrest s/ p successful resuscitation. Pt is AAOx3 and said I want to go home now. Pt is on 3L O2 normally and has some wheezing. When I ask if she wants any treatments , she said she does so will give nebulizer treatments. Pt is saturating at low 90s on 3L NC and feel that this is her baseline. Denies any fever, chest pain, sob, n/v, abdominal pain, focal weakness or numbness. Pt reevaluated at bedside and said she is still sob. She subsequently dropped O2sats to at 85% on 4L NC. Patient was started on BIPAP. CXR showed new consolidative infiltrates in right middle lobe and stable left lower lobe consolidation. Pt is from assisted so covered with vancomycin and zosyn for HCAP. Labs reviewed, mild leukocytosis at 13,000. Mild hyperkalemia at 5.5 but there was slight hemolysis. Glucose elevated at 222. No increased anion gap. Troponin negative. BUN/creatinine elevated at 37/1.50 which is more elevated than baseline. Pt given NS IVF. Pt reevaluated at bedside and saturating at 95% on BIPAP 40% Patient was accepted for admission to critical care and I evaluated the patient in the ER. At the time of my eval patient resting comfortably on BIPAP. Subjective 08/11: Intubated in ED by ED physician. Currently remains sedated and paralyzed after receiving 100 mg rocuronium. Follow-up ABG pending. Objective Vital Signs Date Time Temp Pulse Resp B/P (MAP) Pulse Ox O2 Delivery O2 Flow Rate FiO2 08/11/17 12:58 100 100 08/11/17 11:45 84 18 148/65 (92) Auto-Vent 08/10/17 19:08 15.00 08/10/17 18:18 98.0 Intake and Output 08/11/17 08/11/17 08/12/17 08:00 16:00 00:00 Intake Total 1519.5 ml 100 ml Output Total 700 ml Balance 819.5 ml 100 ml Result Diagram: 08/11/17 0438 08/11/17 0438 Imaging Last Impressions Chest X-Ray 08/11/17 0000 Signed Impressions: Service Date/Time: Friday, August 11, 2017 08:55 - CONCLUSION: Scattered stable infiltrates. Cardiomegaly. Endotracheal tube tip approximately 2 cm above the teresita. Elpidio Hernandez MD Objective Remarks GENERAL: 66-year-old AA female currently orotracheally intubated SKIN: warm/dry. Multiple open wounds involving medial as lateral aspect of atrophied right lower extremity largest which is 3 x 5" without pustular drainage HEAD: Normocephalic. Atraumatic. EYES: Pupils equal and round and disconjugate around 3 mm bilaterally. No scleral icterus. Positive arcus senilis. No injection or drainage. ENT: No nasal bleeding or discharge. Mucous membranes pink and moist. NECK: Trachea midline. CARDIOVASCULAR: Regular rate and rhythm. S1, S2 no S4. RESPIRATORY: Scattered coarse rhonchorous breath sounds appreciated bilaterally. No wheezing GASTROINTESTINAL: Abdomen soft. Obese. Nontender. Bowel sounds present. MUSCULOSKELETAL: Right lower leg is markedly atrophied. See skin above NEUROLOGICAL: Currently paralyzed after receiving rocuronium Urinary Catheter: Yes Assessment to: Continue Wise insert reason: Prolonged Immobilization Vascular Central Line Catheter: No Assessment to: Continue A/P Assessment and Plan Neuro/Psych: Acute toxic metabolic encephalopathy Depression disorder NOS Peripheral neuropathy Chronic benzodiazepine use with lorazepam 0.5 mg every 8 hours as needed Patient is currently on propofol/fentanyl drips for sedation/analgesia while intubated Goal of RASS -2 Daily sedation vacation Acetaminophen 650 mg p.o. every 6 hours as needed fever Continue gabapentin 300 mg p.o. twice daily/home medication for neuropathy Continue sertraline 100 mg p.o. daily social medication Cardiovascular: Chronic diastolic heart failure Hypertension Dyslipidemia History of right iliac artery stent Currently normal saline at 50 cc an hour Currently on furosemide 40 mg daily Resume atorvastatin 40 mg p.o. daily when clinically indicated LFTs are currently elevated Currently holding isosorbide mononitrate 30 mg p.o. daily while intubated. Consider isosorbide dinitrate 10 mg 3 times daily if clinically stable Continue clopidogrel 75 mg p.o. daily/home medication Holding lisinopril 5 mg p.o. daily with acute kidney injury Continue aspirin 81 mg p.o. daily Pulm: Acute on chronic respiratory failure ARSEN History of COPD Healthcare associated pneumonia [facility] 16/525/ Ventilator bundle Albuterol/ipratropium every 4 hours with albuterol aerosols every 2 hours. Dyspnea Furosemide 0.5/2 1 inhalation twice daily Methylprednisolone succinate 80 mg IV every 8 hours Spontaneous breathing trials when clinically indicated GI/ liver: Elevated transaminases Initiate tube feedings with Glucerna 1.5 goal 40 cc an hour Famotidine for GI prophylaxis. On ranitidine 150 mg twice daily at home Docusate sodium/senna 1 tablet twice daily for bowel regimen Liver ultrasound Renal/FEN/: Hyponatremia Hyperpotassemia Acute kidney injury Maintain Wise cath Strict I/O, monitor/ replete electrolytes follow BUN/ Cr Calcium gluconate, D50/insulin/bicarbonate/Kayexalate, albuterol aerosols. Recheck in 3 hours. Heme: Leukocytosis Microcytic anemia Follow CBC Continue ferrous sulfate 300 mg p.o. twice daily/home medication ID: Likely healthcare associated pneumonia Continue empiric Abx - cefepime/ zithromax/vancomycin Blood cultures 2, sputum, UA, urine Legionella pneumococcal antigen and influenza a and B are pending Endocrine: Diabetes mellitus TSH 0.039 SSI for glycemic control. Patient is on insulin glargine 10 units at night with NovoLog sliding scale insulin at home Start insulin detemir 10 units at night with every 4 hours sliding scale novulog High regimen Check a T4/T3 MSK History of rheumatoid arthritis? Elevated BMI Weight loss encouraged PT/OT evaluate and treat Access - PIV Prophylaxis: Famotidine, SCDs/enoxaparin 15 minutes follow-up Sunday Mccord MD Aug 11, 2017 13:12
[2017-08-11] MEDS ORDERED: NITROGLYCERIN 2% OINT 1 GM PACKET TOPICAL PRN (13:30)
[2017-08-11] MEDS ORDERED: LABETALOL HCL 100 MG/20 ML VIAL IV PUSH PRN (13:30)
[2017-08-11] MEDS ORDERED: SODIUM POLYSTYRENE SULFONATE SUSP 15 GM/60 ML CUP PO ONE (13:45)
[2017-08-11] MEDS ORDERED: RESP: ALBUTEROL 2.5 MG/3 ML NEB (SCH) NEB ONE (13:45)
[2017-08-11] MEDS ORDERED: INSULIN HUMAN REGULAR 1,000 UNITS/10 ML VIAL IV PUSH ONE (13:45)
[2017-08-11] MEDS ORDERED: CALCIUM GLUCONATE 10% 1 GM/10 ML VIAL SLOW IVP ONE (13:45)
[2017-08-11] MEDS ORDERED: SODIUM BICARBONATE 8.4% SOLN 50 MEQ/50 ML VIAL SLOW IVP ONE (13:45)
[2017-08-11] MEDS ORDERED: DEXTROSE 50% IN WATER 50 ML VIAL(D50) IV PUSH ONE (13:45)
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
[2017-08-11] MEDS: INSULIN ASPART SUPPLEMENTAL SCALE SQ SCH ×3 (16:00→23:36)
--- NOTE | 2017-08-11 16:20 | MB ---
cc: Viktoria Blum MD DATE OF CONSULT: 08/11/2017 REASON FOR CONSULTATION: Respiratory failure in a patient with known COPD. HISTORY OF PRESENT ILLNESS: Ms. Page is a 66-year-old female with known history of COPD, hypertension, congestive heart failure, coronary artery disease, apparently had a cardiac arrest while at home, resuscitated, brought to the emergency room with some improvement; however, again deteriorated requiring intubation, mechanical ventilation, presently on ventilatory support, sedated. History obtained from the record. PAST MEDICAL HISTORY: 1. COPD. 2. Chronic respiratory failure on oxygen therapy. 3. Hypertension. 4. Congestive heart failure. 5. Obesity. 6. Obstructive sleep apnea on C-PAP therapy. 7. Diabetes mellitus. 8. Morbid obesity. SOCIAL HISTORY: Remote smoking history; does not smoke at present. Does not drink. Does not use drugs. FAMILY HISTORY: Noncontributory. SYSTEMS REVIEW: A 12-point review of systems as per HPI and past history, otherwise negative. CURRENT MEDICATIONS: 1. DuoNeb. 2. Plavix. 3. Insulin. 4. Lasix. 5. Zoloft. 6. Zantac. 7. Gabapentin. ALLERGIES: None known to medications. PHYSICAL EXAMINATION: GENERAL: The patient is sedated, on the ventilator. VITAL SIGNS: Temperature 98, pulse 90, respirations 14, blood pressure 134/60. Oxygen saturation 95% on ventilatory support. HEENT: Exam unremarkable. Eyes without icterus. NECK: Without adenopathy or thyroid enlargement. Central trachea. CHEST: A few scattered rhonchi bilaterally. CARDIAC EXAM: PMI distant. S1, S2 audible. No murmur, no rub. ABDOMEN: Lax. Bowel sounds audible. EXTREMITIES: No clubbing, cyanosis or edema. SKIN: Normal. LYMPHATICS: No lymphadenopathy. LABORATORY DATA: White count 13,000, hemoglobin 11, hematocrit 39, platelets 362,000. Sodium 133, potassium 5.5, BUN 37, creatinine 1.5. Chest x-ray: Right middle lobe, left lower lobe pneumonia. IMPRESSION: 1. Respiratory failure. 2. Chronic obstructive pulmonary disease. 3. Bilateral pneumonia. 4. Obstructive sleep apnea. 5. Morbid obesity. 6. Diabetes mellitus. 7. Hypertension. PLAN: The patient will be maintained on ventilatory support. Antibiotic therapy has been instituted and appropriately so. The weaning process will be initiated as tolerated. Bronchodilator therapy will be continued, course followed closely and depending on progress proceed further. The patient's prognosis with her multiple medical problems is guarded. I do thank you for asking me to partake in Ms. Page's care. Viktoria Blum MD WWW/DAGOBERTO , 04:05 PM , 04:18 PM
[2017-08-11] MEDS: ISOSORBIDE DINITRATE 10 MG TAB PO SCH ×2 (17:35→20:54)
[2017-08-11] MEDS: NYSTATIN 100,000 U/GM PWD 15 GM BTL TOPICAL SCH (17:35)
[2017-08-11] MEDS: COLLAGENASE OINT 30 GM TUBE TOPICAL PRN (17:35)
[2017-08-11] MEDS: PROPOFOL 1000 MG/100 ML INJ 100 ML IV PRN (17:44)
--- NOTE | 2017-08-11 18:34 | EKG ---
Date Performed: 08/10/2017 Time Performed: 18:22:43 PTAGE: 66 years EKG: SINUS TACHYCARDIA WITH OCCASIONAL VENTRICULAR PREMATURE COMPLEXES POSSIBLE LEFT ATRIAL ENLA RGEMENT ST DEVIATION AND MODERATE T-WAVE ABNORMALITY, CONSIDER ANTERIOR ISCHEMIA ST DEVIATION AND MOD ERATE T-WAVE ABNORMALITY, CONSIDER INFERIOR ISCHEMIA ABNORMAL ECG PREVIOUS TRACING : 05/18/2017 15.08 Since the prior tracing, there has been no significant marie DOCTOR: aPrisa Yeager Interpretating Date/Time 08/11/2017 18:31:59
[2017-08-11] MEDS ORDERED: CHLORHEXIDINE 0.12% (ORAL KIT) 15 ML CUP MT SCH (20:00)
[2017-08-11] MEDS: RESP: BUDESONIDE 0.5 MG/2 ML NEB NEB SCH (20:45)
[2017-08-11] MEDS: ARTIFICIAL TEARS OPTH SOLN 15 ML BTL EACH EYE SCH (20:56)
[2017-08-11] MEDS ORDERED: INSULIN DETEMIR 100 UNITS/ML VIAL SQ SCH (21:00)
--- NOTE | 2017-08-11 21:35 | RADRPT ---
EXAM DATE/TIME: 08/11/2017 19:26 [place] COMPARISON: CT PULMONARY ANGIOGRAM, April 16, 2017, 19:17. CT THORAX W/O CONTRAST, June 03, 2016, 18:53. INDICATIONS : Elevated liver function. MEDICAL HISTORY : Hypertension. Cardiovascular disease. Chronic obstructive pulmonary disease. Diabetes SURGICAL HISTORY : Tubal ligation. Hysterectomy. ENCOUNTER: Initial ACUITY: 1 day PAIN SCORE: Nonresponsive. LOCATION: Bilateral upper quadrant MEASUREMENTS: LIVER: 17.0 cm length COMMON DUCT: 9 mm RIGHT KIDNEY: 9.3 x 5.2 x 5.4 cm SPLEEN: 8.5 cm length FINDINGS: LIVER: Normal echotexture without focal lesion or ductal dilatation. COMMON DUCT: No intraluminal mass or stone visualized. GALLBLADDER: Contains no stones, demonstrates no wall thickening given the degree of distention or pericholecystic fluid. PANCREAS: The visualized portions are within normal limits. RIGHT KIDNEY: No hydronephrosis, stone or mass. SPLEEN: No focal lesion. CONCLUSION: Upper limits of normal to mildly distended common bile duct for a patient this age, etiology indeterm inate but I doubt it is significantly changed from the prior CT's. The study is otherwise within norm al limits. Chito Arellano MD on August 11, 2017 at 21:31 Board Certified Radiologist. This report was verified electronically.
[2017-08-11] MEDS: AZITHROMYCIN INJ 500 MG in SODIUM CHLOR 0.9% 250 ML INJ 250 ML IV SCH (23:22)
[2017-08-12] VITALS (18 sets, daily range): BP systolic 92–114; BP diastolic 50–64; PULSE 71–104; RESP 16–26; TEMP 97.8–98.7; O2SAT 94–100
[2017-08-12] MEDS: PROPOFOL 1000 MG/100 ML INJ 100 ML IV PRN ×3 (02:12→21:13)
[2017-08-12] MEDS: methylPREDNISolone SOD SUCC 40 MG/1 ML VIAL IV PUSH SCH ×3 (03:05→21:16)
[2017-08-12] MEDS: RESP: ALBUTEROL 2.5 MG/IPRATROPIUM 0.5 MG NEB (SCH) NEB ×6 (03:56→23:27)
[2017-08-12] MEDS: CHLORHEXIDINE GLUCONATE 2 % 1 PACK (2 CLOTHS) TOP SCH (04:00)
[2017-08-12] MEDS: INSULIN ASPART SUPPLEMENTAL SCALE SQ SCH ×3 (04:52→20:00)
[2017-08-12] MEDS: ARTIFICIAL TEARS OPTH SOLN 15 ML BTL EACH EYE SCH ×2 (05:32→21:18)
[2017-08-12] MEDS: ISOSORBIDE DINITRATE 10 MG TAB PO SCH ×3 (05:32→21:14)
[2017-08-12 05:57] LABS: AUTOMATED NEUTROPHIL # 5.2 TH/MM3 (1.8-7.7); BASOPHIL % 0.2 % (0.0-2.0); HEMATOCRIT 33.7 % (35.0-46.0); HEMOGLOBIN 10.3 GM/DL (11.6-15.3); LYMPH % 9.6 % (9.0-44.0); LYMPHOCYTE # 0.6 TH/MM3 (1.0-4.8); MEAN CELL VOLUME 72.9 FL (80.0-100.0); MEAN CORPUSCULAR HEMOGLOBIN 22.2 PG (27.0-34.0); MEAN CORPUSCULAR HGB CONC 30.5 % (32.0-36.0); MEAN PLATELET VOLUME 8.8 FL (7.0-11.0); MONO % 8.7 % (0.0-8.0); MONOCYTE # 0.6 TH/MM3 (0-0.9); NEUT % 81.5 % (16.0-70.0); PLATELET COUNT 285 TH/MM3 (150-450); RED BLOOD COUNT 4.62 MIL/MM3 (4.00-5.30); RED CELL DISTRIBUTION WIDTH 17.4 % (11.6-17.2); WHITE BLOOD COUNT 6.4 TH/MM3 (4.0-11.0)
[2017-08-12 05:59] LABS: ALBUMIN 2.7 GM/DL (3.4-5.0); AST (GOT) 31 U/L (15-37); BICARBONATE 29.6 MEQ/L (21.0-32.0); BLOOD UREA NITROGEN 35 MG/DL (7-18); CALCIUM 8.1 MG/DL (8.5-10.1); CHLORIDE 101 MEQ/L (98-107); CHOLESTEROL 109 MG/DL (120-200); CREATININE 1.12 MG/DL (0.50-1.00); GLOMERULAR FILTRATION RATE 59 ML/MIN (>89); GLUCOSE,RANDOM 289 MG/DL (74-106); MAGNESIUM 2.7 MG/DL (1.5-2.5); SODIUM (NA) 140 MEQ/L (136-145)
[2017-08-12 06:00] LABS: ALT (GPT) 77 U/L (10-53); TRIGLYCERIDES 77 MG/DL (42-150)
[2017-08-12 06:13] LABS: ALKALINE PHOSPHATASE 79 U/L (45-117); CHOLESTEROL/ HDL RATIO 2.69 RATIO; FREE T3 2.56 PG/ML (2.18-3.98); FREE T4 1.19 NG/DL (0.76-1.46); HDL CHOLESTEROL 40.4 MG/DL (40.0-60.0); LDL CHOLESTEROL 53 MG/DL (0-99); RANDOM VANCOMYCIN 8.5 COMMENT; TOTAL BILIRUBIN ADULT 0.4 MG/DL (0.2-1.0); TOTAL PROTEIN 6.4 GM/DL (6.4-8.2)
[2017-08-12] MEDS ORDERED: ENOXAPARIN SODIUM 30 MG/0.3 ML SYRINGE SQ SCH (07:00)
[2017-08-12 09:46] LABS: BANDS 5 % (0-6); LYMPHOCYTES 14 % (9-44); MONOCYTES 12 % (0-8); MYELOCYTES 1 % (0-0); NEUTROPHIL # MANUAL DIFF 4.7 TH/MM3 (1.8-7.7); POLYS (SEG NEUTROPHILS) 68 % (16-70)
[2017-08-12 09:47] LABS: OVALOCYTES 1+ (NORMAL); TARGET CELLS 1+ (NORMAL)
[2017-08-12] MEDS: VANCOMYCIN INJ 1,250 MG in SODIUM CHLOR 0.9% 250 ML INJ 250 ML IV SCH (11:59)
[2017-08-12] MEDS: NYSTATIN 100,000 U/GM PWD 15 GM BTL TOPICAL SCH ×2 (12:03→21:18)
--- NOTE | 2017-08-12 13:28 | HHI.HCPN ---
Reason for visit a. To assist with evaluation and management of symptoms including: b. To assist medical decision maker(s) with: better understanding of current medical conditions; weighing benefits/burdens of medical treatment options; making medical treatment decisions. Subjective/Interval History [Patient seen at 1145] Patient seen today to follow-up on planned meeting with family regarding conditions, goals. Received call from patient sister before my arrival to unit requesting meeting at 12 noon today. Patient stable overnight. BUN and creatinine down trending. WBC down to 6. LFTs downtrending. Blood culture negative 1 day. Remains on mechanical vent, light sedation Diprivan. Tolerating tube feed via OG tube. Discussed with critical care, primary nurse. Plan for weaning of ventilator as tolerated and possible medical extubation pending condition in the next day or 2. Patient seen in room, dual visit with Afia [place] palliative care social insurance administrator. Patient sister Melissa , [id number] present at bedside, met with them approximately 25 minutes. Patient is alert, nodding to questions. Gesturing. She is attempting to write though is illegible. She appears to be partially to mostly oriented based on her response to discussions. Met with them at bedside discussion included: * Palliative care role, team members, reason for consult * Additional medical/social/spiritual history * Patient cognitive and functional status in the months to weeks prior to this admission * Patient and/or family understanding of current medical conditions prognosis treatment options and treatments * Overall condition, prognosis * CODE STATUS[] * Palliative care contact information provided . Family indicates they wish to discuss CODE STATUS and goals going forward with the patient more in the coming days when she is able to better verbalize what her wishes are. Patient nods in agreement with this. Sister. Melissa indicates they have one brother Chito, patient indicates that she would want both her sister and her brother to be her proxy decision makers should she be unable to make decisions. Sister indicates patient had been doing fine at nursing facility,eating well getting around okay in her wheelchair, and in her usual baseline status until current acute event. For now goals are aggressive to help her get through current acute event though patient and family welcome ongoing discussion regarding conditions and goals as clinical course evolves, for now patient would remain full code though sister does wish to discuss this further with the patient when she is able to verbalize. Advance Directives Living Will: Never completed Health Care Surrogate: Never completed Durable Power of Learning Operations Specialist: Never completed Objective Vital Signs Date Time Temp Pulse Resp B/P (MAP) Pulse Ox O2 Delivery O2 Flow Rate FiO2 08/12/17 12:17 98 40 08/12/17 10:00 100 08/12/17 08:00 78 08/12/17 08:00 98.2 78 26 97/64 (75) 94 08/12/17 08:00 50 08/12/17 07:55 96 45 08/12/17 06:00 71 08/12/17 04:00 80 08/12/17 04:00 98.0 88 16 100/59 (73) 96 08/12/17 03:56 100 50 08/12/17 02:00 72 08/12/17 00:00 84 08/12/17 00:00 97.8 84 16 114/58 (76) 98 08/11/17 23:44 96 50 08/11/17 22:00 82 08/11/17 20:47 95 50 08/11/17 20:00 50 08/11/17 20:00 75 08/11/17 20:00 98.0 75 16 120/57 (78) 96 08/11/17 18:00 77 08/11/17 16:00 83 08/11/17 16:00 97.5 83 13 112/56 (74) 95 08/11/17 15:57 94 50 08/11/17 14:00 77 Intake & Output 08/12/17 08/12/17 07:00 19:00 Intake Total 580 ml Output Total 1000 ml Balance -420 ml Intake IV Total 450 ml Tube Feeding 130 ml Output Urine Total 1000 ml # Bowel Movements 0 Physical Exam CONSTITUTIONAL/GENERAL: This is an obese patient, lightly sedated on mechanical vent. TUBES/LINES/DRAINS: Peripheral IV bilateral hands/wrist, Wise catheter, ET tube , OG tube, soft wrist restraints bilateral SKIN: No jaundice, rashes, or lesions. Dressing no intact over chronic wounds to right lower extremity, right abdomen with dressing over reported skin breakdown . Skin warm and dry. CARDIOVASCULAR: Regular rate and rhythm without murmur. No JVD. Peripheral pulses symmetric-right pedal faint. Trace edema bilateral upper extremities. RESPIRATORY/CHEST: Symmetric, unlabored respirations via ET tube to mechanical vent, Clear , diminished bases. GASTROINTESTINAL: Abdomen soft, obese, some mild tenderness to rt/flank region, nondistended. No palpable masses. Bowel sounds present. GENITOURINARY: Without palpable bladder distension. Wise catheter in place clear yellow urine present. MUSCULOSKELETAL: Extremities without clubbing, cyanosis. Trace edema upper extremities. No joint tenderness or effusion noted. + deformity, scarring right lower extremity. NEUROLOGICAL: Lightly Sedated on mechanical vent. Awake , nodding to questions , unable to verbalize. Attempts to write, but illegible. Appears partially to mostly oriented based on interaction. Somewhat restless was stimuli. Moving all 4 extremities spontaneously and to commands. Consistently following commands. PSYCHIATRIC: Limited assessment secondary to clinical condition, no apparent depression/anxiety. Diagnostic Tests Laboratory Laboratory Tests Test 08/10/17 18:35 08/10/17 19:58 08/11/17 00:00 08/11/17 04:38 White Blood Count 13.0 TH/MM3 (4.0-11.0) 15.0 TH/MM3 (4.0-11.0) Red Blood Count 5.18 MIL/MM3 (4.00-5.30) 5.13 MIL/MM3 (4.00-5.30) Hemoglobin 11.4 GM/DL (11.6-15.3) 11.4 GM/DL (11.6-15.3) Hematocrit 39.4 % (35.0-46.0) 39.1 % (35.0-46.0) Mean Corpuscular Volume 76.0 FL (80.0-100.0) 76.1 FL (80.0-100.0) Mean Corpuscular Hemoglobin 22.0 PG (27.0-34.0) 22.2 PG (27.0-34.0) Mean Corpuscular Hemoglobin Concent 29.0 % (32.0-36.0) 29.2 % (32.0-36.0) Red Cell Distribution Width 17.4 % (11.6-17.2) 17.7 % (11.6-17.2) Platelet Count 352 TH/MM3 (150-450) 335 TH/MM3 (150-450) Mean Platelet Volume 8.1 FL (7.0-11.0) 8.2 FL (7.0-11.0) Neutrophils (%) (Auto) 59.8 % (16.0-70.0) 96.6 % (16.0-70.0) Lymphocytes (%) (Auto) 32.9 % (9.0-44.0) 2.0 % (9.0-44.0) Monocytes (%) (Auto) 5.4 % (0.0-8.0) 1.3 % (0.0-8.0) Eosinophils (%) (Auto) 1.2 % (0.0-4.0) 0.0 % (0.0-4.0) Basophils (%) (Auto) 0.7 % (0.0-2.0) 0.1 % (0.0-2.0) Neutrophils # (Auto) 7.8 TH/MM3 (1.8-7.7) 14.5 TH/MM3 (1.8-7.7) Lymphocytes # (Auto) 4.3 TH/MM3 (1.0-4.8) 0.3 TH/MM3 (1.0-4.8) Monocytes # (Auto) 0.7 TH/MM3 (0-0.9) 0.2 TH/MM3 (0-0.9) Eosinophils # (Auto) 0.2 TH/MM3 (0-0.4) 0.0 TH/MM3 (0-0.4) Basophils # (Auto) 0.1 TH/MM3 (0-0.2) 0.0 TH/MM3 (0-0.2) CBC Comment DIFF FINAL DIFF FINAL Differential Comment Prothrombin Time 10.3 SEC (9.8-11.6) Prothromb Time International Ratio 1.0 RATIO Activated Partial Thromboplast Time 25.4 SEC (24.3-30.1) Blood Urea Nitrogen 37 MG/DL (7-18) 44 MG/DL (7-18) Creatinine 1.50 MG/DL (0.50-1.00) 1.54 MG/DL (0.50-1.00) Random Glucose 222 MG/DL (74-106) 342 MG/DL (74-106) Calcium Level 8.4 MG/DL (8.5-10.1) 7.9 MG/DL (8.5-10.1) Magnesium Level 2.8 MG/DL (1.5-2.5) Sodium Level 133 MEQ/L (136-145) 133 MEQ/L (136-145) Potassium Level 5.5 MEQ/L (3.5-5.1) 6.2 MEQ/L (3.5-5.1) Chloride Level 94 MEQ/L (98-107) 97 MEQ/L (98-107) Carbon Dioxide Level 33.7 MEQ/L (21.0-32.0) 31.3 MEQ/L (21.0-32.0) Anion Gap 5 MEQ/L (5-15) 5 MEQ/L (5-15) Estimat Glomerular Filtration Rate 42 ML/MIN (>89) 41 ML/MIN (>89) Total Creatine Kinase 123 U/L (26-192) Creatine Kinase MB 2.2 NG/ML (0.5-3.6) Troponin I 0.04 NG/ML (0.02-0.05) Thyroid Stimulating Hormone 3rd Gen 0.039 uIU/ML (0.358-3.740) Blood Gas Puncture Site RT FOOT Blood Gas Patient Temperature 98.6 Venous Blood pH 7.25 (7.360-7.400) Venous Blood Partial Pressure CO2 67 mmHg (44-48) Venous Blood Partial Pressure O2 29 mmHg (35-40) Venous Blood HCO3 28 mmol/L (22-26) Venous Blood Oxygen Saturation 45 % (70-76) Venous Blood Oxygen Content 7.0 Vol % (9.0-17.0) Venous Blood Base Excess 1.8 mmol/L (-2-2) Oxygen Delivery Device BIPAP Blood Gas Ventilator Setting Blood Gas Inspired Oxygen 50 % Total Protein 8.1 GM/DL (6.4-8.2) Albumin 3.2 GM/DL (3.4-5.0) Alkaline Phosphatase 116 U/L (45-117) Aspartate Amino Transf (AST/SGOT) 147 U/L (15-37) Alanine Aminotransferase (ALT/SGPT) 146 U/L (10-53) Total Bilirubin 0.3 MG/DL (0.2-1.0) B-Type Natriuretic Peptide 393 PG/ML (0-100) Test 08/11/17 06:00 08/11/17 13:30 08/11/17 14:00 08/11/17 17:34 Blood Gas Puncture Site RT BRACHIAL RT RADIAL Blood Gas Patient Temperature 98.6 98.6 Blood Gas HCO3 31 mmol/L (22-26) 28 mmol/L (22-26) Blood Gas Base Excess 4.2 mmol/L (-2-2) 4.1 mmol/L (-2-2) Blood Gas Oxygen Saturation 90 % (90-100) 94 % (90-100) Arterial Blood pH 7.25 (7.380-7.420) 7.42 (7.380-7.420) Arterial Blood Partial Pressure CO2 73 mmHg (38-42) 44 mmHg (38-42) Arterial Blood Partial Pressure O2 68 mmHG (61-120) 77 mmHg (61-120) Arterial Blood Oxygen Content 13.8 Vol % (12.0-20.0) 13.7 Vol % (12.0-20.0) Arterial Blood Carboxyhemoglobin 1.2 % (0-4) 1.0 % (0-4) Arterial Blood Methemoglobin 0.4 % (0-2) 1.0 % (0-2) Blood Gas Hemoglobin 10.8 G/DL (12.0-16.0) 10.3 G/DL (12.0-16.0) Oxygen Delivery Device BIPAP VENTILATOR Blood Gas Ventilator Setting IPAP10 EPAP 6 PRVC/AC 530/16/5PEEP Blood Gas Inspired Oxygen 90 % 50 % Nasal Screen MRSA (PCR) MRSA DETECTED (NOT DETECT) Potassium Level 4.1 MEQ/L (3.5-5.1) Test 08/12/17 03:55 White Blood Count 6.4 TH/MM3 (4.0-11.0) Red Blood Count 4.62 MIL/MM3 (4.00-5.30) Hemoglobin 10.3 GM/DL (11.6-15.3) Hematocrit 33.7 % (35.0-46.0) Mean Corpuscular Volume 72.9 FL (80.0-100.0) Mean Corpuscular Hemoglobin 22.2 PG (27.0-34.0) Mean Corpuscular Hemoglobin Concent 30.5 % (32.0-36.0) Red Cell Distribution Width 17.4 % (11.6-17.2) Platelet Count 285 TH/MM3 (150-450) Mean Platelet Volume 8.8 FL (7.0-11.0) Neutrophils (%) (Auto) 81.5 % (16.0-70.0) Lymphocytes (%) (Auto) 9.6 % (9.0-44.0) Monocytes (%) (Auto) 8.7 % (0.0-8.0) Eosinophils (%) (Auto) 0.0 % (0.0-4.0) Basophils (%) (Auto) 0.2 % (0.0-2.0) Neutrophils # (Auto) 5.2 TH/MM3 (1.8-7.7) Lymphocytes # (Auto) 0.6 TH/MM3 (1.0-4.8) Monocytes # (Auto) 0.6 TH/MM3 (0-0.9) Eosinophils # (Auto) 0.0 TH/MM3 (0-0.4) Basophils # (Auto) 0.0 TH/MM3 (0-0.2) CBC Comment AUTO DIFF Differential Total Cells Counted 100 Neutrophils % (Manual) 68 % (16-70) Band Neutrophils % 5 % (0-6) Lymphocytes % 14 % (9-44) Monocytes % 12 % (0-8) Neutrophils # (Manual) 4.7 TH/MM3 (1.8-7.7) Myelocytes 1 % (0-0) Differential Comment FINAL DIFF MANUAL Platelet Estimate NORMAL (NORMAL) Platelet Morphology Comment ENLARGED (NORMAL) Target Cells 1+ (NORMAL) Ovalocytes 1+ (NORMAL) Blood Urea Nitrogen 35 MG/DL (7-18) Creatinine 1.12 MG/DL (0.50-1.00) Random Glucose 289 MG/DL (74-106) Total Protein 6.4 GM/DL (6.4-8.2) Albumin 2.7 GM/DL (3.4-5.0) Calcium Level 8.1 MG/DL (8.5-10.1) Phosphorus Level 2.0 MG/DL (2.5-4.9) Magnesium Level 2.7 MG/DL (1.5-2.5) Alkaline Phosphatase 79 U/L (45-117) Aspartate Amino Transf (AST/SGOT) 31 U/L (15-37) Alanine Aminotransferase (ALT/SGPT) 77 U/L (10-53) Total Bilirubin 0.4 MG/DL (0.2-1.0) Sodium Level 140 MEQ/L (136-145) Potassium Level 3.6 MEQ/L (3.5-5.1) Chloride Level 101 MEQ/L (98-107) Carbon Dioxide Level 29.6 MEQ/L (21.0-32.0) Anion Gap 9 MEQ/L (5-15) Estimat Glomerular Filtration Rate 59 ML/MIN (>89) Triglycerides Level 77 MG/DL (42-150) Cholesterol Level 109 MG/DL (120-200) LDL Cholesterol 53 MG/DL (0-99) HDL Cholesterol 40.4 MG/DL (40.0-60.0) Cholesterol/HDL Ratio 2.69 RATIO Free Thyroxine 1.19 NG/DL (0.76-1.46) Free Triiodothyronine (T3) pg/dL 2.56 PG/ML (2.18-3.98) Random Vancomycin Level 8.5 COMMENT Result Diagram: 08/12/17 0355 08/12/17 0355 Microbiology Microbiology Date/Time Source Procedure Growth Status 08/11/17 17:34 Blood Peripheral Aerobic Blood Culture - Preliminary NO GROWTH IN 1 DAY Resulted 08/11/17 17:34 Blood Peripheral Anaerobic Blood Culture - Preliminary NO GROWTH IN 1 DAY Resulted 08/11/17 17:29 Blood Peripheral Aerobic Blood Culture - Preliminary NO GROWTH IN 1 DAY Resulted 08/11/17 17:29 Blood Peripheral Anaerobic Blood Culture - Preliminary NO GROWTH IN 1 DAY Resulted 08/11/17 14:00 Sputum Endotracheal Gram Stain - Final Resulted 08/11/17 14:00 Sputum Endotracheal Sputum Culture Pending Resulted Imaging Last Impressions Liver Ultrasound 08/11/17 0000 Signed Impressions: Service Date/Time: Friday, August 11, 2017 19:26 - CONCLUSION: Upper limits of normal to mildly distended common bile duct for a patient this age, etiology indeterminate but I doubt it is significantly changed from the prior CT's. The study is otherwise within normal limits. Chito Arellano MD Chest X-Ray 08/11/17 0000 Signed Impressions: Service Date/Time: Friday, August 11, 2017 08:55 - CONCLUSION: Scattered stable infiltrates. Cardiomegaly. Endotracheal tube tip approximately 2 cm above the teresita. Elpidio Hernandez MD Assessment and Plan Disease Oriented Problem List: (1) Healthcare-associated pneumonia (2) Respiratory distress (3) Chest pain (4) COPD (chronic obstructive pulmonary disease) (5) Decubitus skin ulcer (6) CHF (congestive heart failure) (7) Diabetes (8) Morbid obesity (9) Coronary artery disease (10) CHF exacerbation (11) GERD (gastroesophageal reflux disease) Symptom Scale: (1) Dyspnea 0-10 Scale: Unable to quantify (2) Anxiety 0-10 Scale: Unable to quantify Pertinent Non-Medical Issues Psychosocial: Spiritual: Alevism Legal: Patient not . No children. No known HCS or advanced directive. Mother recently . Sister Better reports only living family. Per [place] statutes sister Melissa would be appropriate legal proxy. Ethical issues impacting care: Important Contacts Sister Melissa [place] [phone] Mother Rylie Ibarra [place] [phone] . Prognosis This patient was admitted following reported out of hospital cardiac arrest status post resuscitation, with ROSC. Patient stable, labs improving. With multiple chronic medical conditions and prior hospitalization and intubation about one year ago. Appears likely she can recover from current acute issues and return to her baseline status at her nursing facility, however she does remain at risk for complications and setbacks related to chronic conditions and debilitated status. . Code Status: Full Code Plan * Legal decision maker: Patient not . No children. No known HCS or advanced directive. Mother recently . Sister Better reports only living family. Per [place] statutes sister Melissa would be appropriate legal proxy. *of note their mother has just in the past few days, which has been a source of stress for patient and her sister * Goals: Family indicates they wish to discuss CODE STATUS and goals going forward with the patient more in the coming days when she is able to better verbalize what her wishes are. Patient nods in agreement with this. SisterApril Torres indicates they have one brother Chito, patient indicates that she would want both her sister and her brother to be her proxy decision makers should she be unable to make decisions. Sister indicates patient had been doing fine at nursing facility,eating well getting around okay in her wheelchair, and in her usual baseline status until current acute event. For now goals are aggressive to help her get through current acute event though patient and family welcome ongoing discussion regarding conditions and goals as clinical course evolves, for now patient would remain full code though sister does wish to discuss this further with the patient when she is able to verbalize * CODE STATUS: Full code * SYMPTOMS: --dyspnea- hx severe COPD, o2 dependent, + CHF. CXR = There are new consolidative infiltrates in the right middle lobe. Stable left lower lobe consolidation. intubated 82108/11/17. On empiric antibiotic coverage for healthcare associated pneumonia. Currently breathing comfortably on Diprivan for sedation on mechanical vent. Slowly improving, plans for weaning and possible medical extubation in the coming days --Anxiety-patient with history anxiety, potential for worsened anxiety/AMS secondary to intubation, respiratory failure. Mildly restless today with light sedation. Of note patient mother just this past Friday which sister reports has been a source of stress/anxiety for them. Currently on Diprivan for sedation, intermittently restless though generally appears comfortable, will continue to evaluate. Has been resumed on her regular sertraline 100 mg --Pain-pt endorses pain to right flank region--nursing reports skin breakdown for which they have applied dressing and bariatric air bed has been ordered for patient. Cautious use of opiates as patient planned for weaning and possible medical extubation. Could consider Tylenol, low-dose [place] 5 mg. * Palliative care will continue to follow during hospital course as condition evolves, to assist patient/decision-maker with understanding of medical conditions, weighing benefits/burdens of treatment options, for clarification of goals of treatment. Additionally will assist with any symptoms of palliative concern Attestation To help prompt me to consider important information that might be impacting today's encounter and assessment, information from prior notes written by myself or my colleagues may have been "brought forward" into today's note. My signature on this note, however, is an attestation that I personally performed the exam, history, and/or decision-making noted today, and, unless otherwise indicated, the interactions with patient, family, and staff as well as the review of records all occurred today. I also attest that the listed assessment and stated plan reflect my best clinical judgment today based on the combination of historical information, prior notes, and today's exam/ interactions. When time spent is documented, it refers only to time spent today by the signer, or if indicated, combined time spent today by collaborating physician/nurse practitioner. Jazmyn Rodriguez Aug 12, 2017 13:28
--- NOTE | 2017-08-12 14:43 | HHI.CCPN ---
Subjective Remarks/Hospital Course 66yo F from [facility] with PMH of HTN, DM, COPD on home O2, [place], CHF, morbid obesity was brought here from intermediate for supposed cardiac arrest s/ p successful resuscitation. Pt is AAOx3 and said I want to go home now. Pt is on 3L O2 normally and has some wheezing. When I ask if she wants any treatments , she said she does so will give nebulizer treatments. Pt is saturating at low 90s on 3L NC and feel that this is her baseline. Denies any fever, chest pain, sob, n/v, abdominal pain, focal weakness or numbness. Pt reevaluated at bedside and said she is still sob. She subsequently dropped O2sats to at 85% on 4L NC. Patient was started on BIPAP. CXR showed new consolidative infiltrates in right middle lobe and stable left lower lobe consolidation. Pt is from intermediate so covered with vancomycin and zosyn for HCAP. Labs reviewed, mild leukocytosis at 13,000. Mild hyperkalemia at 5.5 but there was slight hemolysis. Glucose elevated at 222. No increased anion gap. Troponin negative. BUN/creatinine elevated at 37/1.50 which is more elevated than baseline. Pt given NS IVF. Pt reevaluated at bedside and saturating at 95% on BIPAP 40% Patient was accepted for admission to critical care and I evaluated the patient in the ER. At the time of my eval patient resting comfortably on BIPAP. 08/11: Intubated in ED by ED physician. Currently remains sedated and paralyzed after receiving 100 mg rocuronium. Follow-up ABG pending. Subjective 08/12: Resting in bed on CPAP awake and alert and following commands. Tolerating tube feeding. Afebrile. Transaminases and creatinine have normalized Objective Vital Signs Date Time Temp Pulse Resp B/P (MAP) Pulse Ox O2 Delivery O2 Flow Rate FiO2 08/12/17 12:17 98 40 08/12/17 10:00 100 08/12/17 08:00 98.2 26 97/64 (75) 08/11/17 11:45 Auto-Vent 08/10/17 19:08 15.00 Intake and Output 08/12/17 08/12/17 08/13/17 08:00 16:00 00:00 Intake Total 480 ml Output Total 1000 ml Balance -520 ml Result Diagram: 08/12/17 0355 08/12/17 0355 Other Results Microbiology Date/Time Source Procedure Growth Status 08/11/17 17:34 Blood Peripheral Aerobic Blood Culture - Preliminary NO GROWTH IN 1 DAY Resulted 08/11/17 17:34 Blood Peripheral Anaerobic Blood Culture - Preliminary NO GROWTH IN 1 DAY Resulted 08/11/17 14:00 Sputum Endotracheal Gram Stain - Final Resulted 08/11/17 14:00 Sputum Endotracheal Sputum Culture - Preliminary LIGHT GROWTH NORMAL RESPIRATORY GRUPO... Resulted Imaging Last Impressions Liver Ultrasound 08/11/17 0000 Signed Impressions: Service Date/Time: Friday, August 11, 2017 19:26 - CONCLUSION: Upper limits of normal to mildly distended common bile duct for a patient this age, etiology indeterminate but I doubt it is significantly changed from the prior CT's. The study is otherwise within normal limits. Chito Arellano MD Chest X-Ray 08/11/17 0000 Signed Impressions: Service Date/Time: Friday, August 11, 2017 08:55 - CONCLUSION: Scattered stable infiltrates. Cardiomegaly. Endotracheal tube tip approximately 2 cm above the teresita. Elpidio Hernandez MD Objective Remarks GENERAL: 66-year-old AA female currently orotracheally intubated SKIN: warm/dry. Multiple open wounds involving medial as lateral aspect of atrophied right lower extremity largest which is 3 x 5" without pustular drainage HEAD: Normocephalic. Atraumatic. EYES: Pupils equal and round and disconjugate around 3 mm bilaterally. No scleral icterus. Positive arcus senilis. No injection or drainage. ENT: No nasal bleeding or discharge. Mucous membranes pink and moist. NECK: Trachea midline. CARDIOVASCULAR: Regular rate and rhythm. S1, S2 no S4. RESPIRATORY: Scattered coarse rhonchorous breath sounds appreciated bilaterally. No wheezing GASTROINTESTINAL: Abdomen soft. Obese. Nontender. Bowel sounds present. MUSCULOSKELETAL: Right lower leg is markedly atrophied. See skin above NEUROLOGICAL: Currently paralyzed after receiving rocuronium A/P Assessment and Plan Neuro/Psych: Acute toxic metabolic encephalopathy Depression disorder NOS Peripheral neuropathy Chronic benzodiazepine use with lorazepam 0.5 mg every 8 hours as needed Patient is currently on propofol at 15 mcg/kg/min/fentanyl drips as needed for sedation/analgesia while intubated Goal of RASS -2 Daily sedation vacation Acetaminophen 650 mg p.o. every 6 hours as needed fever Continue gabapentin 300 mg p.o. twice daily/home medication for neuropathy Continue sertraline 100 mg p.o. daily social medication Cardiovascular: Chronic diastolic heart failure Hypertension Dyslipidemia History of right iliac artery stent Currently normal saline at 50 cc an hour Currently on furosemide 40 mg daily Resume atorvastatin 40 mg p.o. daily when clinically indicated LFTs are currently elevated Currently holding isosorbide mononitrate 30 mg p.o. daily while intubated. Consider isosorbide dinitrate 10 mg 3 times daily if clinically stable Continue clopidogrel 75 mg p.o. daily/home medication Holding lisinopril 5 mg p.o. daily with acute kidney injury Continue aspirin 81 mg p.o. daily Pulm: Acute on chronic respiratory failure ARSEN History of COPD Healthcare associated pneumonia [facility] /06/06/39 CPAP trial 05/06 and 40% Ventilator bundle Albuterol/ipratropium every 4 hours with albuterol aerosols every 2 hours. Dyspnea Budesonide 0.5/2 1 inhalation twice daily Methylprednisolone succinate 80 mg IV every 8 hours Spontaneous breathing trials when clinically indicated GI/ liver: Elevated transaminases Hypoalbuminemia Initiate tube feedings with Glucerna 1.5 goal 40 cc an hour Famotidine for GI prophylaxis. On ranitidine 150 mg twice daily at home Docusate sodium/senna 1 tablet twice daily for bowel regimen Liver ultrasound revealed no significant acute findings Renal/FEN/: Hypophosphatemia Acute kidney injury Maintain Wise cath Strict I/O, monitor/ replete electrolytes follow BUN/ Cr Heme: Microcytic anemia Follow CBC Continue ferrous sulfate 300 mg p.o. twice daily/home medication ID: Likely healthcare associated pneumonia Continue empiric Abx - cefepime/ zithromax/vancomycin Blood cultures 2, sputum, UA, urine Legionella pneumococcal antigen and influenza a and B are pending Endocrine: Diabetes mellitus TSH 0.039 SSI for glycemic control. Patient is on insulin glargine 10 units at night with NovoLog sliding scale insulin at home Start insulin detemir 10 units at night with every 4 hours sliding scale NovoLog High regimen Normal T4/T3. Recheck TSH in 4-6 weeks if her critical illness MSK History of rheumatoid arthritis? Elevated BMI Weight loss encouraged PT/OT evaluate and treat Access - PIV Prophylaxis: Famotidine, SCDs/enoxaparin Level 3 follow-up Sunday Mccord MD Aug 12, 2017 14:43
[2017-08-12] MEDS ORDERED: INSULIN HUMAN NPH 1,000 UNITS/10 ML VIAL SQ ONE (15:00)
[2017-08-12] MEDS ORDERED: POTASSIUM PHOSPHATE INJ 30 MMOL in SODIUM CHLOR 0.9% 250 ML INJ 250 ML IV ONE (15:00)
--- NOTE | 2017-08-12 16:35 | HHI.PR ---
Subjective Remarks on the vent [facility] Objective Vital Signs Date Time Temp Pulse Resp B/P (MAP) Pulse Ox O2 Delivery O2 Flow Rate FiO2 08/12/17 16:05 100 40 08/12/17 12:17 98 40 08/12/17 10:00 100 08/12/17 08:00 78 08/12/17 08:00 98.2 78 26 97/64 (75) 94 08/12/17 08:00 50 08/12/17 07:55 96 45 08/12/17 06:00 71 08/12/17 04:00 80 08/12/17 04:00 98.0 88 16 100/59 (73) 96 08/12/17 03:56 100 50 08/12/17 02:00 72 08/12/17 00:00 84 08/12/17 00:00 97.8 84 16 114/58 (76) 98 08/11/17 23:44 96 50 08/11/17 22:00 82 08/11/17 20:47 95 50 08/11/17 20:00 50 08/11/17 20:00 75 08/11/17 20:00 98.0 75 16 120/57 (78) 96 08/11/17 18:00 77 I/O 08/11/17 08/11/17 08/11/17 08/12/17 08/12/17 08/12/17 07:00 15:00 23:00 07:00 15:00 23:00 Intake Total 1519.5 ml 100 ml 100 ml 480 ml Output Total 700 ml 1000 ml Balance 819.5 ml 100 ml 100 ml -520 ml Intake IV Total 1519.5 ml 100 ml 100 ml 350 ml Tube Feeding 130 ml Output Urine Total 700 ml 1000 ml # Bowel Movements 0 Result Diagram: 08/12/17 0355 08/12/17 0355 Objective Remarks GENERAL: SKIN: Warm and dry. HEAD: Atraumatic. Normocephalic. EYES: Pupils equal and round. No scleral icterus. No injection or drainage. ENT: No nasal bleeding or discharge. Mucous membranes pink and moist. NECK: Trachea midline. No JVD. CARDIOVASCULAR: Regular rate and rhythm. RESPIRATORY: No accessory muscle use. Clear to auscultation. Breath sounds equal bilaterally. GASTROINTESTINAL: Abdomen soft, non-tender, nondistended. Hepatic and splenic margins not palpable. MUSCULOSKELETAL: Extremities without clubbing, cyanosis, or edema. No obvious deformities. NEUROLOGICAL: Awake and alert. No obvious cranial nerve deficits. Motor grossly within normal limits. Five out of 5 muscle strength in the arms and legs. Normal speech. PSYCHIATRIC: Appropriate mood and affect; insight and judgment normal. Assessment and Plan Assessment and Plan impression copd respiratory failure pna DM HTNPLAN VENT SUPPORT PULM TOILET WEAN TOLERATED Viktoria Blum MD Aug 12, 2017 16:35
[2017-08-12] MEDS: CHLORHEXIDINE 0.12% (ORAL KIT) 15 ML CUP MT SCH (20:00)
[2017-08-12] MEDS: RESP: BUDESONIDE 0.5 MG/2 ML NEB NEB SCH (20:40)
[2017-08-12] MEDS: INSULIN DETEMIR 100 UNITS/ML VIAL SQ SCH (21:00)
[2017-08-12] MEDS: DOCUSATE SODIUM 50 MG/SENNA 8.6 MG TAB PO SCH (21:13)
[2017-08-12] MEDS: MUPIROCIN 2% OINT 1 APPLIC/GM SYR EACH NARE SCH (21:13)
[2017-08-12] MEDS: CEFEPIME INJ 1,000 MG in SODIUM CHLORIDE 0.9% INJ 100 ML IV SCH (21:14)
[2017-08-12] MEDS: SODIUM CHLORIDE 0.9% FLUSH 10 ML FLUSH IV FLUSH SCH (21:15)
[2017-08-12] MEDS: GABAPENTIN 300 MG CAP PO SCH (21:15)
[2017-08-12] MEDS: FAMOTIDINE 20 MG TAB PO SCH (21:29)
[2017-08-12] MEDS: SODIUM CHLOR 0.9% 1000 ML INJ 1,000 ML IV SCH (21:30)
[2017-08-12 22:50] LABS: BILIRUBIN, URINE NEG (NEG); BLOOD, URINE TRACE (NEG); GLUCOSE,URINE NEG (NEG); HYALINE CAST, URINE 1 /lpf (RARE); KETONE, URINE NEG (NEG); NITRITE,URINE NEG (NEG); SQUAMOUS EPITHELIAL CELL URINE 2 /hpf (0-5); URINE COLOR YELLOW (YELLW/STRAW); URINE LEUKOCYTE ESTERASE SMALL (NEG)
[2017-08-12] MEDS: AZITHROMYCIN INJ 500 MG in SODIUM CHLOR 0.9% 250 ML INJ 250 ML IV SCH (23:00)
[2017-08-13] VITALS (20 sets, daily range): BP systolic 103–196; BP diastolic 55–90; PULSE 76–119; RESP 16–28; TEMP 97.8–98.5; O2SAT 95–100
[2017-08-13] MEDS: RESP: ALBUTEROL 2.5 MG/IPRATROPIUM 0.5 MG NEB (SCH) NEB ×6 (03:18→23:48)
[2017-08-13] MEDS: CHLORHEXIDINE GLUCONATE 2 % 1 PACK (2 CLOTHS) TOP SCH (04:00)
[2017-08-13] MEDS: INSULIN ASPART SUPPLEMENTAL SCALE SQ SCH ×6 (04:00→20:00)
[2017-08-13] MEDS: methylPREDNISolone SOD SUCC 40 MG/1 ML VIAL IV PUSH SCH ×3 (04:15→17:14)
[2017-08-13] MEDS: PROPOFOL 1000 MG/100 ML INJ 100 ML IV PRN (04:15)
[2017-08-13] MEDS: ENOXAPARIN SODIUM 40 MG/0.4 ML SYRINGE SQ SCH (04:16)
[2017-08-13] MEDS: ISOSORBIDE DINITRATE 10 MG TAB PO SCH ×3 (04:16→21:43)
[2017-08-13] MEDS: ARTIFICIAL TEARS OPTH SOLN 15 ML BTL EACH EYE SCH ×3 (04:16→22:00)
--- NOTE | 2017-08-13 05:17 | RADRPT ---
EXAM DATE/TIME: 08/13/2017 03:45 [facility] COMPARISON: CHEST SINGLE AP, August 11, 2017, 8:55. INDICATIONS : Short of breath. MEDICAL HISTORY : Hypertension. Cardiovascular disease. Chronic obstructive pulmonary disease. Diabetes SURGICAL HISTORY : Tubal ligation. Hysterectomy ENCOUNTER: Subsequent ACUITY: 3 days PAIN SCORE: 0/10 LOCATION: Bilateral chest FINDINGS: A single portable frontal view of the chest is blurred by motion artifact. Tip of endotracheal tube 4 cm proximal to the teresita. Nasogastric tube tip courses off the inferior margin of the film. There h as been some improvement in the pulmonary infiltrates. Scattered infiltrates remain throughout both l ungs. No effusions. Mild cardiomegaly. Advanced osteoarthritis of the shoulders bilaterally. CONCLUSION: 1. Slight improvement in the bilateral pulmonary infiltrates. 2. Cardiomegaly. Smooth Cleveland Jr., MD on August 13, 2017 at 5:15 Board Certified Radiologist. This report was verified electronically.
[2017-08-13] MEDS: CHLORHEXIDINE 0.12% (ORAL KIT) 15 ML CUP MT SCH ×2 (08:00→20:00)
[2017-08-13] MEDS: DOCUSATE SODIUM 50 MG/SENNA 8.6 MG TAB PO SCH ×2 (08:12→20:29)
[2017-08-13] MEDS: CLOPIDOGREL 75 MG TAB PO SCH (08:12)
[2017-08-13] MEDS: ASPIRIN 81 MG CHEW TAB PO SCH (08:12)
[2017-08-13] MEDS: FOLIC ACID 1 MG TAB PO SCH (08:12)
[2017-08-13] MEDS: CEFEPIME INJ 1,000 MG in SODIUM CHLORIDE 0.9% INJ 100 ML IV SCH ×2 (08:14→20:28)
[2017-08-13] MEDS: SODIUM CHLORIDE 0.9% FLUSH 10 ML FLUSH IV FLUSH SCH ×2 (08:14→20:28)
[2017-08-13] MEDS: SERTRALINE HCL 100 MG TAB PO SCH (08:14)
[2017-08-13] MEDS: FAMOTIDINE 20 MG TAB PO SCH ×2 (08:14→21:43)
[2017-08-13] MEDS: MUPIROCIN 2% OINT 1 APPLIC/GM SYR EACH NARE SCH ×2 (08:15→20:30)
[2017-08-13] MEDS: NYSTATIN 100,000 U/GM PWD 15 GM BTL TOPICAL SCH ×2 (08:16→20:30)
[2017-08-13] MEDS: INSULIN DETEMIR 100 UNITS/ML VIAL SQ SCH ×2 (08:16→20:29)
[2017-08-13] MEDS: GABAPENTIN 300 MG CAP PO SCH ×2 (08:40→20:29)
[2017-08-13] MEDS: FUROSEMIDE 40 MG TAB PO SCH (08:40)
[2017-08-13 08:52] LABS: AUTOMATED NEUTROPHIL # 6.4 TH/MM3 (1.8-7.7); HEMATOCRIT 33.1 % (35.0-46.0); HEMOGLOBIN 9.9 GM/DL (11.6-15.3); LYMPH % 8.7 % (9.0-44.0); LYMPHOCYTE # 0.7 TH/MM3 (1.0-4.8); MEAN CELL VOLUME 72.8 FL (80.0-100.0); MEAN CORPUSCULAR HEMOGLOBIN 21.8 PG (27.0-34.0); MEAN PLATELET VOLUME 8.9 FL (7.0-11.0); MONOCYTE # 0.7 TH/MM3 (0-0.9); NEUT % 82.3 % (16.0-70.0); PLATELET COUNT 281 TH/MM3 (150-450); RED BLOOD COUNT 4.55 MIL/MM3 (4.00-5.30); RED CELL DISTRIBUTION WIDTH 16.9 % (11.6-17.2); WHITE BLOOD COUNT 7.8 TH/MM3 (4.0-11.0)
[2017-08-13] MEDS: RESP: BUDESONIDE 0.5 MG/2 ML NEB NEB SCH ×2 (08:58→20:57)
[2017-08-13 09:28] LABS: ALBUMIN 2.8 GM/DL (3.4-5.0); ALKALINE PHOSPHATASE 79 U/L (45-117); ALT (GPT) 64 U/L (10-53); AST (GOT) 20 U/L (15-37); BICARBONATE 28.9 MEQ/L (21.0-32.0); BLOOD UREA NITROGEN 28 MG/DL (7-18); CALCIUM 8.4 MG/DL (8.5-10.1); CHLORIDE 102 MEQ/L (98-107); GLOMERULAR FILTRATION RATE 76 ML/MIN (>89); GLUCOSE,RANDOM 330 MG/DL (74-106); MAGNESIUM 2.5 MG/DL (1.5-2.5); PHOSPHORUS 2.5 MG/DL (2.5-4.9); SODIUM (NA) 140 MEQ/L (136-145); TOTAL BILIRUBIN ADULT 0.4 MG/DL (0.2-1.0); TOTAL PROTEIN 6.7 GM/DL (6.4-8.2)
[2017-08-13] MEDS: VANCOMYCIN INJ 1,250 MG in SODIUM CHLOR 0.9% 250 ML INJ 250 ML IV SCH (10:19)
--- NOTE | 2017-08-13 16:09 | HHI.CCPN ---
Subjective Remarks/Hospital Course 66yo F from [facility] with PMH of HTN, DM, COPD on home O2, [place], CHF, morbid obesity was brought here from alf for supposed cardiac arrest s/ p successful resuscitation. Pt is AAOx3 and said I want to go home now. Pt is on 3L O2 normally and has some wheezing. When I ask if she wants any treatments , she said she does so will give nebulizer treatments. Pt is saturating at low 90s on 3L NC and feel that this is her baseline. Denies any fever, chest pain, sob, n/v, abdominal pain, focal weakness or numbness. Pt reevaluated at bedside and said she is still sob. She subsequently dropped O2sats to at 85% on 4L NC. Patient was started on BIPAP. CXR showed new consolidative infiltrates in right middle lobe and stable left lower lobe consolidation. Pt is from alf so covered with vancomycin and zosyn for HCAP. Labs reviewed, mild leukocytosis at 13,000. Mild hyperkalemia at 5.5 but there was slight hemolysis. Glucose elevated at 222. No increased anion gap. Troponin negative. BUN/creatinine elevated at 37/1.50 which is more elevated than baseline. Pt given NS IVF. Pt reevaluated at bedside and saturating at 95% on BIPAP 40% Patient was accepted for admission to critical care and I evaluated the patient in the ER. At the time of my eval patient resting comfortably on BIPAP. 08/11: Intubated in ED by ED physician. Currently remains sedated and paralyzed after receiving 100 mg rocuronium. Follow-up ABG pending. 08/12: Resting in bed on CPAP awake and alert and following commands. Tolerating tube feeding. Afebrile. Transaminases and creatinine have normalized Subjective 08/13: Tolerating CPAP trial. Attempted extubation today. Awake and alert and following commands. Transaminases creatinine normalized. Objective Vital Signs Date Time Temp Pulse Resp B/P (MAP) Pulse Ox O2 Delivery O2 Flow Rate FiO2 08/13/17 15:15 96 Nasal Cannula 3.00 08/13/17 15:00 3 08/13/17 10:00 93 08/13/17 08:00 98.5 18 110/59 (76) Intake and Output 08/13/17 08/13/17 08/14/17 08:00 16:00 00:00 Intake Total 919 ml Balance 919 ml Result Diagram: 08/13/17 0642 08/13/17 0642 Other Results Microbiology Date/Time Source Procedure Growth Status 08/11/17 17:34 Blood Peripheral Aerobic Blood Culture - Preliminary NO GROWTH IN 2 DAYS Resulted 08/11/17 17:34 Blood Peripheral Anaerobic Blood Culture - Preliminary NO GROWTH IN 2 DAYS Resulted 08/11/17 14:00 Sputum Endotracheal Gram Stain - Final Complete 08/11/17 14:00 Sputum Endotracheal Sputum Culture - Final LIGHT GROWTH NORMAL RESPIRATORY GRUPO Complete Imaging Last Impressions Chest X-Ray 08/13/17 0600 Signed Impressions: Service Date/Time: Sunday, August 13, 2017 03:45 - CONCLUSION: 1. Slight improvement in the bilateral pulmonary infiltrates. 2. Cardiomegaly. Smooth Cleveland Jr., MD Liver Ultrasound 08/11/17 0000 Signed Impressions: Service Date/Time: Friday, August 11, 2017 19:26 - CONCLUSION: Upper limits of normal to mildly distended common bile duct for a patient this age, etiology indeterminate but I doubt it is significantly changed from the prior CT's. The study is otherwise within normal limits. Chito Arellano MD Objective Remarks GENERAL: 66-year-old AA female currently orotracheally intubated SKIN: warm/dry. Multiple open wounds involving medial as lateral aspect of atrophied right lower extremity largest which is 3 x 5" without pustular drainage HEAD: Normocephalic. Atraumatic. EYES: Pupils equal and round and disconjugate around 3 mm bilaterally. No scleral icterus. Positive arcus senilis. No injection or drainage. ENT: No nasal bleeding or discharge. Mucous membranes pink and moist. NECK: Trachea midline. CARDIOVASCULAR: Regular rate and rhythm. S1, S2 no S4. RESPIRATORY: Scattered coarse rhonchorous breath sounds appreciated bilaterally. No wheezing GASTROINTESTINAL: Abdomen soft. Obese. Nontender. Bowel sounds present. MUSCULOSKELETAL: Right lower leg is markedly atrophied. See skin above NEUROLOGICAL: Cranial nerves II through XII appear to be grossly intact. Moving bilateral upper extremities to command. Vascular Central Line Catheter: No Assessment to: Continue A/P Assessment and Plan Neuro/Psych: Acute toxic metabolic encephalopathy Depression disorder NOS Peripheral neuropathy Chronic benzodiazepine use with lorazepam 0.5 mg every 8 hours as needed Patient is currently on propofol at 15 mcg/kg/min/fentanyl drips as needed for sedation/analgesia while intubated Goal of RASS -2 Daily sedation vacation Acetaminophen 650 mg p.o. every 6 hours as needed fever Continue gabapentin 300 mg p.o. twice daily/home medication for neuropathy Continue sertraline 100 mg p.o. daily social medication Cardiovascular: Chronic diastolic heart failure Hypertension Dyslipidemia History of right iliac artery stent Currently normal saline at 50 cc an hour Currently on furosemide 40 mg daily Resume atorvastatin 40 mg p.o. daily when clinically indicated LFTs are currently elevated Currently holding isosorbide mononitrate 30 mg p.o. daily while intubated. Consider isosorbide dinitrate 10 mg 3 times daily if clinically stable Continue clopidogrel 75 mg p.o. daily/home medication Holding lisinopril 5 mg p.o. daily with acute kidney injury Continue aspirin 81 mg p.o. daily Pulm: Acute on chronic respiratory failure ARSEN History of COPD Healthcare associated pneumonia [facility] /06/06/39 CPAP trial 03/06 and 40% Ventilator bundle Albuterol/ipratropium every 4 hours with albuterol aerosols every 2 hours. Dyspnea Budesonide 0.5/2 1 inhalation twice daily Methylprednisolone succinate 80 mg IV every 8 hours Spontaneous breathing trials when clinically indicated GI/ liver: Elevated transaminases Hypoalbuminemia Initiate tube feedings with Glucerna 1.5 goal 40 cc an hour. Currently on hold Famotidine for GI prophylaxis. On ranitidine 150 mg twice daily at home Docusate sodium/senna 1 tablet twice daily for bowel regimen Liver ultrasound revealed no significant acute findings Renal/FEN/: Hypophosphatemia Acute kidney injury Maintain Wise cath Strict I/O, monitor/ replete electrolytes follow BUN/ Cr Heme: Microcytic anemia Follow CBC Continue ferrous sulfate 300 mg p.o. twice daily/home medication ID: Likely healthcare associated pneumonia Continue empiric Abx - cefepime/ zithromax/vancomycin Blood cultures 2, sputum, UA, urine Legionella pneumococcal antigen and influenza a and B are pending Endocrine: Diabetes mellitus TSH 0.039 SSI for glycemic control. Patient is on insulin glargine 10 units at night with NovoLog sliding scale insulin at home Start insulin detemir 10 units at night with every 4 hours sliding scale NovoLog High regimen Normal T4/T3. Recheck TSH in 4-6 weeks if her critical illness MSK History of rheumatoid arthritis? Elevated BMI Weight loss encouraged PT/OT evaluate and treat Access - PIV Prophylaxis: Famotidine, SCDs/enoxaparin Level 3 follow-up Sunday Mccord MD Aug 13, 2017 16:09
--- NOTE | 2017-08-13 16:58 | HHI.PR ---
Subjective Remarks alert extubated in good spirits Objective Vital Signs Date Time Temp Pulse Resp B/P (MAP) Pulse Ox O2 Delivery O2 Flow Rate FiO2 08/13/17 15:15 96 Nasal Cannula 3.00 08/13/17 15:00 96 3 08/13/17 10:00 93 08/13/17 09:00 95 35 08/13/17 09:00 40 08/13/17 08:00 35 08/13/17 08:00 78 08/13/17 08:00 98.5 78 18 110/59 (76) 98 08/13/17 06:00 76 08/13/17 04:00 87 08/13/17 04:00 35 08/13/17 04:00 97.8 92 22 143/67 (92) 99 08/13/17 03:19 98 35 08/13/17 02:00 88 08/13/17 00:00 98.1 92 16 103/55 (71) 99 08/13/17 00:00 92 08/13/17 00:00 35 08/12/17 23:27 100 35 08/12/17 22:00 91 08/12/17 20:34 100 40 08/12/17 20:00 35 08/12/17 20:00 35 08/12/17 20:00 90 08/12/17 20:00 98.0 90 17 102/54 (70) 97 08/12/17 18:00 93 I/O 08/12/17 08/12/17 08/12/17 08/13/17 08/13/17 08/13/17 07:00 15:00 23:00 07:00 15:00 23:00 Intake Total 480 ml 919 ml Output Total 1000 ml 1300 ml Balance -520 ml -1300 ml 919 ml Intake IV Total 350 ml Tube Feeding 130 ml 719 ml Other 200 ml Output Urine Total 1000 ml 1300 ml # Voids 3 # Bowel Movements 0 0 Result Diagram: 08/13/1742 08/13/17 0642 Objective Remarks GENERAL: SKIN: Warm and dry. HEAD: Atraumatic. Normocephalic. EYES: Pupils equal and round. No scleral icterus. No injection or drainage. ENT: No nasal bleeding or discharge. Mucous membranes pink and moist. NECK: Trachea midline. No JVD. CARDIOVASCULAR: Regular rate and rhythm. RESPIRATORY: No accessory muscle use. Clear to auscultation. Breath sounds equal bilaterally. GASTROINTESTINAL: Abdomen soft, non-tender, nondistended. Hepatic and splenic margins not palpable. MUSCULOSKELETAL: Extremities without clubbing, cyanosis, or edema. No obvious deformities. NEUROLOGICAL: Awake and alert. No obvious cranial nerve deficits. Motor grossly within normal limits. Five out of 5 muscle strength in the arms and legs. Normal speech. PSYCHIATRIC: Appropriate mood and affect; insight and judgment normal. Assessment and Plan Assessment and Plan impression COPD respiratory failure pna DM HTN PLAN WEANED OFF THE VENT continue bronchodilators increase activity Viktoria Blum MD Aug 13, 2017 16:58
[2017-08-13] MEDS: hydrALAZINE HCL 20 MG/ML VIAL IV PUSH PRN ×2 (17:09→20:28)
[2017-08-14] VITALS (20 sets, daily range): BP systolic 91–150; BP diastolic 53–84; PULSE 91–116; RESP 23–37; TEMP 97.7–99.6; O2SAT 90–100
[2017-08-14] MEDS: AZITHROMYCIN INJ 500 MG in SODIUM CHLOR 0.9% 250 ML INJ 250 ML IV SCH ×2 (00:10→22:40)
[2017-08-14] MEDS ORDERED: ACETAMINOPHEN 325 MG TAB PO PRN (00:30)
--- NOTE | 2017-08-14 03:58 | RADRPT ---
EXAM DATE/TIME: 08/14/2017 02:09 [facility] COMPARISON: CHEST SINGLE AP, August 13, 2017, 3:45. INDICATIONS : Shortness of breath, possible pulmonary disease. MEDICAL HISTORY : Hypertension. Cardiovascular disease. Chronic obstructive pulmonary disease. Diabetes SURGICAL HISTORY : Tubal ligation. Hysterectomy. ENCOUNTER: Subsequent ACUITY: 4 - 6 days PAIN SCORE: 0/10 LOCATION: Bilateral chest FINDINGS: Moderate cardiomegaly. No pulmonary vascular engorgement. No infiltrate or effusion. Minimal scarring involving the left upper lobe. Advanced osteoarthritis involving the shoulder joints. CONCLUSION: Cardiomegaly. Clear lobes Smooth Cleveland Jr., MD on August 14, 2017 at 3:56 Board Certified Radiologist. This report was verified electronically.
[2017-08-14] MEDS: INSULIN ASPART SUPPLEMENTAL SCALE SQ SCH ×3 (04:00→09:08)
[2017-08-14] MEDS: CHLORHEXIDINE GLUCONATE 2 % 1 PACK (2 CLOTHS) TOP SCH (04:00)
[2017-08-14] MEDS: RESP: ALBUTEROL 2.5 MG/IPRATROPIUM 0.5 MG NEB (SCH) NEB ×5 (04:00→19:50)
[2017-08-14] MEDS: methylPREDNISolone SOD SUCC 40 MG/1 ML VIAL IV PUSH SCH ×3 (05:03→18:09)
[2017-08-14] MEDS: ENOXAPARIN SODIUM 40 MG/0.4 ML SYRINGE SQ SCH (05:04)
[2017-08-14] MEDS: ISOSORBIDE DINITRATE 10 MG TAB PO SCH ×3 (05:04→22:39)
[2017-08-14] MEDS: ARTIFICIAL TEARS OPTH SOLN 15 ML BTL EACH EYE SCH ×3 (05:05→22:00)
[2017-08-14 05:58] LABS: BASOPHIL % 0.1 % (0.0-2.0); HEMOGLOBIN 10.3 GM/DL (11.6-15.3); LYMPH % 12.5 % (9.0-44.0); LYMPHOCYTE # 1.2 TH/MM3 (1.0-4.8); MEAN CELL VOLUME 72.5 FL (80.0-100.0); MEAN CORPUSCULAR HGB CONC 30.3 % (32.0-36.0); MEAN PLATELET VOLUME 8.5 FL (7.0-11.0); MONO % 12.6 % (0.0-8.0); MONOCYTE # 1.2 TH/MM3 (0-0.9); NEUT % 74.8 % (16.0-70.0); PLATELET COUNT 269 TH/MM3 (150-450); RED BLOOD COUNT 4.69 MIL/MM3 (4.00-5.30); RED CELL DISTRIBUTION WIDTH 17.4 % (11.6-17.2); WHITE BLOOD COUNT 9.3 TH/MM3 (4.0-11.0)
[2017-08-14 06:24] LABS: ALT (GPT) 52 U/L (10-53); AST (GOT) 16 U/L (15-37); BICARBONATE 33.3 MEQ/L (21.0-32.0); BLOOD UREA NITROGEN 23 MG/DL (7-18); CALCIUM 8.6 MG/DL (8.5-10.1); CHLORIDE 103 MEQ/L (98-107); CREATININE 0.77 MG/DL (0.50-1.00); GLOMERULAR FILTRATION RATE 91 ML/MIN (>89); GLUCOSE,RANDOM 211 MG/DL (74-106); MAGNESIUM 2.4 MG/DL (1.5-2.5); SODIUM (NA) 142 MEQ/L (136-145)
[2017-08-14] MEDS: SODIUM CHLOR 0.9% 1000 ML INJ 1,000 ML IV SCH ×2 (06:28)
[2017-08-14 06:40] LABS: ALKALINE PHOSPHATASE 72 U/L (45-117); PHOSPHORUS 2.8 MG/DL (2.5-4.9); TOTAL BILIRUBIN ADULT 0.5 MG/DL (0.2-1.0); TOTAL PROTEIN 6.9 GM/DL (6.4-8.2)
[2017-08-14] MEDS: RESP: BUDESONIDE 0.5 MG/2 ML NEB NEB SCH ×2 (07:36→19:50)
[2017-08-14] MEDS: CHLORHEXIDINE 0.12% (ORAL KIT) 15 ML CUP MT SCH ×2 (08:00→20:00)
--- NOTE | 2017-08-14 08:20 | HHI.CCPN ---
Subjective Remarks/Hospital Course 66yo F from [facility] with PMH of HTN, DM, COPD on home O2, PR, CHF, morbid obesity was brought [facility] for supposed cardiac arrest s/ p successful resuscitation. Pt is AAOx3 and said I want to go home now. Pt is on 3L O2 normally and has some wheezing. When I ask if she wants any treatments , she said she does so will give nebulizer treatments. Pt is saturating at low 90s on 3L NC and feel that this is her baseline. Denies any fever, chest pain, sob, n/v, abdominal pain, focal weakness or numbness. Pt reevaluated at bedside and said she is still sob. She subsequently dropped O2sats to at 85% on 4L NC. Patient was started on BIPAP. CXR showed new consolidative infiltrates in right middle lobe and stable left lower lobe consolidation. Pt is from [facility] so covered with vancomycin and zosyn for HCAP. Labs reviewed, mild leukocytosis at 13,000. Mild hyperkalemia at 5.5 but there was slight hemolysis. Glucose elevated at 222. No increased anion gap. Troponin negative. BUN/creatinine elevated at 37/1.50 which is more elevated than baseline. Pt given NS IVF. Pt reevaluated at bedside and saturating at 95% on BIPAP 40% Patient was accepted for admission to critical care and I evaluated the patient in the ER. At the time of my eval patient resting comfortably on BIPAP. 08/11: Intubated in ED by ED physician. Currently remains sedated and paralyzed after receiving 100 mg rocuronium. Follow-up ABG pending. 08/12: Resting in bed on CPAP awake and alert and following commands. Tolerating tube feeding. Afebrile. Transaminases and creatinine have normalized Subjective 08/13: Tolerating CPAP trial. Attempted extubation today. Awake and alert and following commands. Transaminases creatinine normalized. 08/14 Patient s/p extubation yesterday. Awake and alert. Afebrile. Objective Vital Signs Date Time Temp Pulse Resp B/P (MAP) Pulse Ox O2 Delivery O2 Flow Rate FiO2 08/14/17 07:38 96 Nasal Cannula 2.00 08/14/17 06:00 93 08/14/17 04:00 98.0 23 109/53 (71) 3/14/18 15:00 3 Intake and Output 08/14/17 08/14/17 08/15/17 08:00 16:00 00:00 Intake Total 1550 ml Output Total 700 ml Balance 850 ml Result Diagram: 08/14/17 0446 08/14/17 0446 Other Results Laboratory Tests Test 08/14/17 04:46 White Blood Count 9.3 TH/MM3 Red Blood Count 4.69 MIL/MM3 Hemoglobin 10.3 GM/DL Hematocrit 34.0 % Mean Corpuscular Volume 72.5 FL Mean Corpuscular Hemoglobin 22.0 PG Mean Corpuscular Hemoglobin Concent 30.3 % Red Cell Distribution Width 17.4 % Platelet Count 269 TH/MM3 Mean Platelet Volume 8.5 FL Neutrophils (%) (Auto) 74.8 % Lymphocytes (%) (Auto) 12.5 % Monocytes (%) (Auto) 12.6 % Eosinophils (%) (Auto) 0.0 % Basophils (%) (Auto) 0.1 % Neutrophils # (Auto) 7.0 TH/MM3 Lymphocytes # (Auto) 1.2 TH/MM3 Monocytes # (Auto) 1.2 TH/MM3 Eosinophils # (Auto) 0.0 TH/MM3 Basophils # (Auto) 0.0 TH/MM3 CBC Comment DIFF FINAL Differential Comment Blood Urea Nitrogen 23 MG/DL Creatinine 0.77 MG/DL Random Glucose 211 MG/DL Total Protein 6.9 GM/DL Albumin 3.0 GM/DL Calcium Level 8.6 MG/DL Phosphorus Level 2.8 MG/DL Magnesium Level 2.4 MG/DL Alkaline Phosphatase 72 U/L Aspartate Amino Transf (AST/SGOT) 16 U/L Alanine Aminotransferase (ALT/SGPT) 52 U/L Total Bilirubin 0.5 MG/DL Sodium Level 142 MEQ/L Potassium Level 3.9 MEQ/L Chloride Level 103 MEQ/L Carbon Dioxide Level 33.3 MEQ/L Anion Gap 6 MEQ/L Estimat Glomerular Filtration Rate 91 ML/MIN Imaging Last Impressions Chest X-Ray 08/14/17 0600 Signed Impressions: Service Date/Time: July 02:09 - CONCLUSION: Cardiomegaly. Clear lobes Smooth Cleveland Jr., MD Liver Ultrasound 08/11/17 0000 Signed Impressions: Service Date/Time: Friday, August 11, 2017 19:26 - CONCLUSION: Upper limits of normal to mildly distended common bile duct for a patient this age, etiology indeterminate but I doubt it is significantly changed from the prior CT's. The study is otherwise within normal limits. Chito Arellano MD Objective Remarks GENERAL: 66-year-old AA female lying in be din NAD SKIN: warm/dry. Multiple open wounds involving medial as lateral aspect of atrophied right lower extremity largest which is 3 x 5" without pustular drainage HEAD: Normocephalic. Atraumatic. EYES: Pupils equal and round and disconjugate around 3 mm bilaterally. No scleral icterus. Positive arcus senilis. No injection or drainage. ENT: No nasal bleeding or discharge. Mucous membranes pink and moist. NECK: Trachea midline. CARDIOVASCULAR: Regular rate and rhythm. S1, S2 no S4. RESPIRATORY: B/L equal air entry GASTROINTESTINAL: Abdomen soft. Obese. Nontender. Bowel sounds present. MUSCULOSKELETAL: Right lower leg is markedly atrophied. See skin above NEUROLOGICAL: Cranial nerves II through XII appear to be grossly intact. Awake and alert A/P Assessment and Plan Neuro/Psych: Acute toxic metabolic encephalopathy Depression disorder NOS Peripheral neuropathy Chronic benzodiazepine use with lorazepam 0.5 mg every 8 hours as needed Awake, alert, avoid sedatives Acetaminophen 650 mg p.o. every 6 hours as needed fever Continue gabapentin 300 mg p.o. twice daily/home medication for neuropathy Continue sertraline 100 mg p.o. daily social medication Cardiovascular: Chronic diastolic heart failure Hypertension Dyslipidemia History of right iliac artery stent Monitor HR and BP keep MAP>65mmHg Currently on furosemide 40 mg daily Resume atorvastatin , LFT's now within normal. On isosorbide dinitrate 10 mg 3 times daily Continue clopidogrel 75 mg p.o. daily/home medication Continue aspirin 81 mg p.o. daily Pulm: Acute on chronic respiratory failure- extubated 08/13 ARSEN History of COPD Healthcare associated pneumonia Continue with oxygen keep sats >92% Albuterol/ipratropium every 4 hours with albuterol aerosols every 2 hours. Dyspnea Budesonide 0.5/2 1 inhalation twice daily Decrease Solumederol 40 mg IV every 8 hours NIPPV PRN for resp distress GI/ liver: Elevated transaminases- now within normal Hypoalbuminemia On PO diabetic diet Famotidine for GI prophylaxis. On ranitidine 150 mg twice daily at home Docusate sodium/senna 1 tablet twice daily for bowel regimen Liver ultrasound revealed no significant acute findings Renal/FEN/: Hypophosphatemia Acute kidney injury- resolved Monitor renal function, electrolytes replacement per protocol. Heme: Microcytic anemia Follow CBC Continue ferrous sulfate 300 mg p.o. twice daily/home medication ID: Likely healthcare associated pneumonia Continue empiric Abx - cefepime/ Zithromax d/c vancomycin CXR today: No infiltrate or effusions BC from 08/11: NGTD, sputum cx 08/11: normal resp neena Endocrine: Diabetes mellitus TSH 0.039 Increase SSI medium scale for glycemic control. Patient is on insulin glargine 10 units at night with NovoLog sliding scale insulin at home On Insulin detemir 10 units BID Normal T4/T3. Recheck TSH in 4-6 weeks if her critical illness [facility] History of rheumatoid arthritis? Elevated BMI Weight loss encouraged PT/OT evaluate and treat Access - PIV Prophylaxis: Famotidine, SCDs/enoxaparin Will sign off and transfer care to [facility] Level 2 Lluvia Gamboa MD Aug 14, 2017 08:19
[2017-08-14] MEDS: DOCUSATE SODIUM 50 MG/SENNA 8.6 MG TAB PO SCH ×2 (09:00→20:07)
[2017-08-14] MEDS: CEFEPIME INJ 1,000 MG in SODIUM CHLORIDE 0.9% INJ 100 ML IV SCH ×2 (09:09→20:05)
[2017-08-14] MEDS: MUPIROCIN 2% OINT 1 APPLIC/GM SYR EACH NARE SCH ×2 (09:09→20:07)
[2017-08-14] MEDS: SODIUM CHLORIDE 0.9% FLUSH 10 ML FLUSH IV FLUSH PRN (09:09)
[2017-08-14] MEDS: ASPIRIN 81 MG CHEW TAB PO SCH (09:09)
[2017-08-14] MEDS: FOLIC ACID 1 MG TAB PO SCH (09:09)
[2017-08-14] MEDS: SODIUM CHLORIDE 0.9% FLUSH 10 ML FLUSH IV FLUSH SCH ×2 (09:09→20:05)
[2017-08-14] MEDS: GABAPENTIN 300 MG CAP PO SCH ×2 (09:10→20:05)
[2017-08-14] MEDS: ATORVASTATIN 40 MG TAB PO SCH (09:10)
[2017-08-14] MEDS: INSULIN DETEMIR 100 UNITS/ML VIAL SQ SCH ×2 (09:10→20:06)
[2017-08-14] MEDS: CLOPIDOGREL 75 MG TAB PO SCH (09:10)
[2017-08-14] MEDS: FUROSEMIDE 40 MG TAB PO SCH (09:10)
[2017-08-14] MEDS: FAMOTIDINE 20 MG TAB PO SCH ×2 (09:10→20:05)
[2017-08-14] MEDS: SERTRALINE HCL 100 MG TAB PO SCH (09:10)
[2017-08-14] MEDS: NYSTATIN 100,000 U/GM PWD 15 GM BTL TOPICAL SCH ×2 (09:11→20:08)
--- NOTE | 2017-08-14 09:42 | RADRPT ---
EXAM DATE/TIME: 08/11/2017 14:35 [place] COMPARISON: No previous studies available for comparison. INDICATIONS : Thyroid mass. MEDICAL HISTORY : Hypertension. Cardiovascular disease. Chronic obstructive pulmonary disease. Diabetes SURGICAL HISTORY : Tubal ligation. Hysterectomy. ENCOUNTER: Initial ACUITY: 1 day PAIN SCORE: 0/10 LOCATION: Bilateral neck MEASUREMENTS: RIGHT LOBE: 6.9 x 3.1 x 2.7 cm LEFT LOBE: 6.5 x 2.4 x 2.8 cm FINDINGS: RIGHT LOBE: Heterogeneous echotexture with 2 dominant solid nodules. 1.4 x 0.9 x 1.6 cm solid sli ghtly hypoechoic nodule in the mid thyroid lobe. 1.9 x 1.8 x 1.8 cm heterogeneously solid, hyperechoi c nodule in the mid thyroid lobe. No significant increased vascularity. LEFT LOBE: Heterogeneous echotexture with multiple nodules. Complex predominantly cystic nodule i n the lower pole measuring 1.9 x 1.4 x 1.0 cm. Solid heterogeneous nodule in the lower pole measuring 2.1 x 1.6 x 2.0 cm. Solid predominantly hypoechoic nodule measuring 1.6 x 1.5 x 1.2 cm in the upper pole. No significantly increased vascularity. ISTHMUS: Normal in size without focal abnormality. CONCLUSION: 1. Diffusely heterogeneous multinodular thyroid consistent with multinodular goiter. 2. 1.9 cm and 1.6 cm solid nodules in the right thyroid meet criteria for consideration of fine needl e aspiration. 3. 2.1 cm and 1.6 cm solid nodules in the left thyroid meet criteria for consideration of fine needle aspiration. Sebastian Watson MD on August 14, 2017 at 9:19 Board Certified Radiologist. This report was verified electronically.
[2017-08-14] MEDS ORDERED: PHARMACY ORDERED LAB ONE (09:45)
[2017-08-14] MEDS ORDERED: GLUCAGON 1 MG/ML VIAL OTHER PRN (10:00)
[2017-08-14] MEDS ORDERED: DEXTROSE 50% IN WATER 50 ML VIAL(D50) IV PUSH PRN (10:00)
[2017-08-14] MEDS ORDERED: oxyCODONE/ACETAMINOPHEN 5 MG/325 MG TAB PO ONE ×2 (10:00→21:45)
[2017-08-14] MEDS: INSULIN NovoLIN REGULAR SUPPLEMENTAL SCALE SQ SCH ×5 (10:32→23:40)
--- NOTE | 2017-08-14 11:14 | HHI.HCPN ---
Reason for visit a. To assist with evaluation and management of symptoms including: b. To assist medical decision maker(s) with: better understanding of current medical conditions; weighing benefits/burdens of medical treatment options; making medical treatment decisions. Subjective/Interval History Patient seen today to follow-up on comfort, goals now that pt extubated. Pt stable, medically extubated 08/13/17. Tolerating NC. Labs normalized. CXR= lungs clear. ST evaluated, pt tolerating mech soft w thin liquids, no sx aspiration. Patient seen in room, on phone w goddaughter. Met w her at bedside- she is alert , oriented, and remembers me from the other day. She has limited insight to ED/ ICU course, does not remember. Review of out of hospital reported events, hospital course thus far. She is tearful and expresses gratitude at the care she has received. She shares that her mother this past Friday and that it must not be her time to join her. She shares that she and her sister have been grieving and stressed. Review of CPR/ code status, she says she needs to think about it, she is grateful she has survived but wants to think more about code status going forward. All questions answered. She denies dyspnea. Denies GI complaints. She endorses chronic pain to bilateral legs for many years, for which she usually takes oxycodone 1 or 2 times a day and rarely 3 times a day with good relief. She endorses intermittent pain to mid and right chest region which worsens with cough, happens intermittently not every day not having it currently, she feels this pain also subsides with use of the other pain medication and slow deep breathing. Otherwise no complaints, feeling hungry awaiting breakfast-tells me she had a alise cracker and applesauce but ready for real food. She is amenable to me calling her sister to provide an update. She is going to keep praying and thinking about the decisions ahead of her. She does request equipment maint tech visit for support, no particular local [employer] affiliation. Called to Lashon Gustafson, voicemail left. Family/friend interactions Called to patient's sister Melissa, provided update. She was in to see patient yesterday evening. Review of current clinical condition, assessment and likely trajectory, if patient remains stable/improves will probably discharge back to facility in the coming days. Sister indicates she will be talking more with patient about CODE STATUS, as well as other wishes/living will. Palliative care can provide them with these documents to assist with their completion. . Advance Directives Living Will: Never completed Health Care Surrogate: Never completed Durable Power of Logistics Engineering Manager: Never completed Objective Vital Signs Date Time Temp Pulse Resp B/P (MAP) Pulse Ox O2 Delivery O2 Flow Rate FiO2 08/14/17 10:00 100 26 134/83 (100) 95 08/14/17 09:00 104 33 121/58 (79) 91 08/14/17 08:00 98.3 98 34 126/63 (84) 93 08/14/17 07:38 96 Nasal Cannula 2.00 08/14/17 07:00 91 37 91/55 (67) 97 08/14/17 06:00 93 08/14/17 04:00 98.0 106 23 109/53 (71) 98 08/14/17 04:00 97 08/14/17 02:00 105 08/14/17 00:00 116 08/14/17 00:00 97.8 110 35 133/59 (83) 99 08/13/17 22:15 95 Nasal Cannula 3.50 08/13/17 22:00 119 08/13/17 20:00 109 08/13/17 20:00 98.0 104 28 196/90 (125) 96 08/13/17 18:00 102 08/13/17 17:00 92 08/13/17 16:00 90 08/13/17 16:00 98.3 90 27 176/83 (114) 100 08/13/17 15:15 96 Nasal Cannula 3.00 08/13/17 15:00 96 08/13/17 15:00 96 3 08/13/17 14:00 95 08/13/17 13:00 110 08/13/17 12:00 89 08/13/17 12:00 40 08/13/17 12:00 98.5 89 20 138/65 (89) 95 08/13/17 11:00 102 Intake & Output 08/14/17 08/14/17 07:00 19:00 Intake Total 2650 ml 150 ml Output Total 700 ml Balance 1950 ml 150 ml Intake Oral 300 ml IV Total 2350 ml 150 ml Output Urine Total 700 ml # Bowel Movements 0 Physical Exam CONSTITUTIONAL/GENERAL: This is an obese patient, alert, oriented, pleasant TUBES/LINES/DRAINS: Peripheral IV bilateral hands/wrist, wick external catheter , NC O2 SKIN: No jaundice, rashes, or lesions. Dressing no intact over chronic wounds to right lower extremity, right abdomen with dressing over reported skin breakdown . Skin warm and dry. CARDIOVASCULAR: Regular rate and rhythm without murmur. No JVD. Peripheral pulses symmetric-right pedal faint. Trace edema bilateral upper extremities. RESPIRATORY/CHEST: Symmetric, unlabored respirations on NC, Clear , diminished bases. GASTROINTESTINAL: Abdomen soft, obese, some mild tenderness to rt/flank region, nondistended. No palpable masses. Bowel sounds present. MUSCULOSKELETAL: Extremities without clubbing, cyanosis. Trace edema upper extremities. No joint tenderness or effusion noted. + deformity, scarring right lower extremity. NEUROLOGICAL: Awake , oriented and appropriate, limited insight to acute event leading to hospitalization. Cooperative, following commands, moves 4 extremities. PSYCHIATRIC: tearful at times . Diagnostic Tests Laboratory Laboratory Tests Test 08/11/17 13:30 08/11/17 14:00 08/11/17 17:34 08/12/17 03:55 Blood Gas Puncture Site RT RADIAL Blood Gas Patient Temperature 98.6 Blood Gas HCO3 28 mmol/L (22-26) Blood Gas Base Excess 4.1 mmol/L (-2-2) Blood Gas Oxygen Saturation 94 % (90-100) Arterial Blood pH 7.42 (7.380-7.420) Arterial Blood Partial Pressure CO2 44 mmHg (38-42) Arterial Blood Partial Pressure O2 77 mmHg (61-120) Arterial Blood Oxygen Content 13.7 Vol % (12.0-20.0) Arterial Blood Carboxyhemoglobin 1.0 % (0-4) Arterial Blood Methemoglobin 1.0 % (0-2) Blood Gas Hemoglobin 10.3 G/DL (12.0-16.0) Oxygen Delivery Device VENTILATOR Blood Gas Ventilator Setting PRVC/AC 530/16/5PEEP Blood Gas Inspired Oxygen 50 % Nasal Screen MRSA (PCR) MRSA DETECTED (NOT DETECT) Potassium Level 4.1 MEQ/L (3.5-5.1) 3.6 MEQ/L (3.5-5.1) White Blood Count 6.4 TH/MM3 (4.0-11.0) Red Blood Count 4.62 MIL/MM3 (4.00-5.30) Hemoglobin 10.3 GM/DL (11.6-15.3) Hematocrit 33.7 % (35.0-46.0) Mean Corpuscular Volume 72.9 FL (80.0-100.0) Mean Corpuscular Hemoglobin 22.2 PG (27.0-34.0) Mean Corpuscular Hemoglobin Concent 30.5 % (32.0-36.0) Red Cell Distribution Width 17.4 % (11.6-17.2) Platelet Count 285 TH/MM3 (150-450) Mean Platelet Volume 8.8 FL (7.0-11.0) Neutrophils (%) (Auto) 81.5 % (16.0-70.0) Lymphocytes (%) (Auto) 9.6 % (9.0-44.0) Monocytes (%) (Auto) 8.7 % (0.0-8.0) Eosinophils (%) (Auto) 0.0 % (0.0-4.0) Basophils (%) (Auto) 0.2 % (0.0-2.0) Neutrophils # (Auto) 5.2 TH/MM3 (1.8-7.7) Lymphocytes # (Auto) 0.6 TH/MM3 (1.0-4.8) Monocytes # (Auto) 0.6 TH/MM3 (0-0.9) Eosinophils # (Auto) 0.0 TH/MM3 (0-0.4) Basophils # (Auto) 0.0 TH/MM3 (0-0.2) CBC Comment AUTO DIFF Differential Total Cells Counted 100 Neutrophils % (Manual) 68 % (16-70) Band Neutrophils % 5 % (0-6) Lymphocytes % 14 % (9-44) Monocytes % 12 % (0-8) Neutrophils # (Manual) 4.7 TH/MM3 (1.8-7.7) Myelocytes 1 % (0-0) Differential Comment FINAL DIFF MANUAL Platelet Estimate NORMAL (NORMAL) Platelet Morphology Comment ENLARGED (NORMAL) Target Cells 1+ (NORMAL) Ovalocytes 1+ (NORMAL) Blood Urea Nitrogen 35 MG/DL (7-18) Creatinine 1.12 MG/DL (0.50-1.00) Random Glucose 289 MG/DL (74-106) Total Protein 6.4 GM/DL (6.4-8.2) Albumin 2.7 GM/DL (3.4-5.0) Calcium Level 8.1 MG/DL (8.5-10.1) Phosphorus Level 2.0 MG/DL (2.5-4.9) Magnesium Level 2.7 MG/DL (1.5-2.5) Alkaline Phosphatase 79 U/L (45-117) Aspartate Amino Transf (AST/SGOT) 31 U/L (15-37) Alanine Aminotransferase (ALT/SGPT) 77 U/L (10-53) Total Bilirubin 0.4 MG/DL (0.2-1.0) Sodium Level 140 MEQ/L (136-145) Chloride Level 101 MEQ/L (98-107) Carbon Dioxide Level 29.6 MEQ/L (21.0-32.0) Anion Gap 9 MEQ/L (5-15) Estimat Glomerular Filtration Rate 59 ML/MIN (>89) Triglycerides Level 77 MG/DL (42-150) Cholesterol Level 109 MG/DL (120-200) LDL Cholesterol 53 MG/DL (0-99) HDL Cholesterol 40.4 MG/DL (40.0-60.0) Cholesterol/HDL Ratio 2.69 RATIO Free Thyroxine 1.19 NG/DL (0.76-1.46) Free Triiodothyronine (T3) pg/dL 2.56 PG/ML (2.18-3.98) Random Vancomycin Level 8.5 COMMENT Test 08/12/17 19:00 08/13/17 06:42 08/14/17 04:46 Urine Color YELLOW (YELLW/STRAW) Urine Turbidity CLEAR (CLEAR) Urine pH 6.0 (5.0-8.5) Urine Specific [place] 1.015 (1.002-1.035) Urine Protein NEG mg/dL (NEG-TRACE) Urine Glucose (UA) NEG mg/dL (NEG) Urine Ketones NEG mg/dL (NEG) Urine Occult Blood TRACE (NEG) Urine Nitrite NEG (NEG) Urine Bilirubin NEG (NEG) Urine Urobilinogen LESS THAN 2.0 MG/DL (LESS Urine Leukocyte Esterase SMALL (NEG) Urine RBC 23 /hpf (0-3) Urine WBC 3 /hpf (0-5) Urine Squamous Epithelial Cells 2 /hpf (0-5) Urine Hyaline Casts 1 /lpf (RARE) Microscopic Urinalysis Comment CATH-CULT NOT IND White Blood Count 7.8 TH/MM3 (4.0-11.0) 9.3 TH/MM3 (4.0-11.0) Red Blood Count 4.55 MIL/MM3 (4.00-5.30) 4.69 MIL/MM3 (4.00-5.30) Hemoglobin 9.9 GM/DL (11.6-15.3) 10.3 GM/DL (11.6-15.3) Hematocrit 33.1 % (35.0-46.0) 34.0 % (35.0-46.0) Mean Corpuscular Volume 72.8 FL (80.0-100.0) 72.5 FL (80.0-100.0) Mean Corpuscular Hemoglobin 21.8 PG (27.0-34.0) 22.0 PG (27.0-34.0) Mean Corpuscular Hemoglobin Concent 30.0 % (32.0-36.0) 30.3 % (32.0-36.0) Red Cell Distribution Width 16.9 % (11.6-17.2) 17.4 % (11.6-17.2) Platelet Count 281 TH/MM3 (150-450) 269 TH/MM3 (150-450) Mean Platelet Volume 8.9 FL (7.0-11.0) 8.5 FL (7.0-11.0) Neutrophils (%) (Auto) 82.3 % (16.0-70.0) 74.8 % (16.0-70.0) Lymphocytes (%) (Auto) 8.7 % (9.0-44.0) 12.5 % (9.0-44.0) Monocytes (%) (Auto) 9.0 % (0.0-8.0) 12.6 % (0.0-8.0) Eosinophils (%) (Auto) 0.0 % (0.0-4.0) 0.0 % (0.0-4.0) Basophils (%) (Auto) 0.0 % (0.0-2.0) 0.1 % (0.0-2.0) Neutrophils # (Auto) 6.4 TH/MM3 (1.8-7.7) 7.0 TH/MM3 (1.8-7.7) Lymphocytes # (Auto) 0.7 TH/MM3 (1.0-4.8) 1.2 TH/MM3 (1.0-4.8) Monocytes # (Auto) 0.7 TH/MM3 (0-0.9) 1.2 TH/MM3 (0-0.9) Eosinophils # (Auto) 0.0 TH/MM3 (0-0.4) 0.0 TH/MM3 (0-0.4) Basophils # (Auto) 0.0 TH/MM3 (0-0.2) 0.0 TH/MM3 (0-0.2) CBC Comment DIFF FINAL DIFF FINAL Differential Comment Blood Urea Nitrogen 28 MG/DL (7-18) 23 MG/DL (7-18) Creatinine 0.90 MG/DL (0.50-1.00) 0.77 MG/DL (0.50-1.00) Random Glucose 330 MG/DL (74-106) 211 MG/DL (74-106) Total Protein 6.7 GM/DL (6.4-8.2) 6.9 GM/DL (6.4-8.2) Albumin 2.8 GM/DL (3.4-5.0) 3.0 GM/DL (3.4-5.0) Calcium Level 8.4 MG/DL (8.5-10.1) 8.6 MG/DL (8.5-10.1) Phosphorus Level 2.5 MG/DL (2.5-4.9) 2.8 MG/DL (2.5-4.9) Magnesium Level 2.5 MG/DL (1.5-2.5) 2.4 MG/DL (1.5-2.5) Alkaline Phosphatase 79 U/L (45-117) 72 U/L (45-117) Aspartate Amino Transf (AST/SGOT) 20 U/L (15-37) 16 U/L (15-37) Alanine Aminotransferase (ALT/SGPT) 64 U/L (10-53) 52 U/L (10-53) Total Bilirubin 0.4 MG/DL (0.2-1.0) 0.5 MG/DL (0.2-1.0) Sodium Level 140 MEQ/L (136-145) 142 MEQ/L (136-145) Potassium Level 4.1 MEQ/L (3.5-5.1) 3.9 MEQ/L (3.5-5.1) Chloride Level 102 MEQ/L (98-107) 103 MEQ/L (98-107) Carbon Dioxide Level 28.9 MEQ/L (21.0-32.0) 33.3 MEQ/L (21.0-32.0) Anion Gap 9 MEQ/L (5-15) 6 MEQ/L (5-15) Estimat Glomerular Filtration Rate 76 ML/MIN (>89) 91 ML/MIN (>89) Result Diagram: 08/14/17 0446 08/14/17 0446 Microbiology Microbiology Date/Time Source Procedure Growth Status 08/11/17 17:34 Blood Peripheral Aerobic Blood Culture - Preliminary NO GROWTH IN 2 DAYS Resulted 08/11/17 17:34 Blood Peripheral Anaerobic Blood Culture - Preliminary NO GROWTH IN 2 DAYS Resulted 08/11/17 17:29 Blood Peripheral Aerobic Blood Culture - Preliminary NO GROWTH IN 2 DAYS Resulted 08/11/17 17:29 Blood Peripheral Anaerobic Blood Culture - Preliminary NO GROWTH IN 2 DAYS Resulted 08/11/17 14:00 Sputum Endotracheal Gram Stain - Final Complete 08/11/17 14:00 Sputum Endotracheal Sputum Culture - Final LIGHT GROWTH NORMAL RESPIRATORY GRUPO Complete Imaging Last Impressions Chest X-Ray 08/14/17 0600 Signed Impressions: Service Date/Time: July 02:09 - CONCLUSION: Cardiomegaly. Clear lobes Smooth Cleveland Jr., MD Thyroid Ultrasound 08/14/17 0000 Signed Impressions: Service Date/Time: Friday, August 11, 2017 14:35 - CONCLUSION: 1. Diffusely heterogeneous multinodular thyroid consistent with multinodular goiter. 2. 1.9 cm and 1.6 cm solid nodules in the right thyroid meet criteria for consideration of fine needle aspiration. 3. 2.1 cm and 1.6 cm solid nodules in the left thyroid meet criteria for consideration of fine needle aspiration. Sebastian Watson MD Liver Ultrasound 08/11/17 0000 Signed Impressions: Service Date/Time: Friday, August 11, 2017 19:26 - CONCLUSION: Upper limits of normal to mildly distended common bile duct for a patient this age, etiology indeterminate but I doubt it is significantly changed from the prior CT's. The study is otherwise within normal limits. Chito Arellano MD Procedures 08/13 extubated 08/10 intubated . Assessment and Plan Disease Oriented Problem List: (1) Healthcare-associated pneumonia (2) Respiratory distress (3) Chest pain (4) COPD (chronic obstructive pulmonary disease) (5) Decubitus skin ulcer (6) CHF (congestive heart failure) (7) Diabetes (8) Morbid obesity (9) Coronary artery disease (10) CHF exacerbation (11) GERD (gastroesophageal reflux disease) Symptom Scale: (1) Dyspnea 0-10 Scale: Unable to quantify (2) Anxiety 0-10 Scale: Unable to quantify (3) Pain Pertinent Non-Medical Issues Psychosocial: Spiritual: Denominational Legal: Patient not . No children. No known HCS or advanced directive. Mother recently . Sister Michelle reports only living family. Per [place] statutes sister Melissa would be appropriate legal proxy. Ethical issues impacting care: Important Contacts Sister Melissa Afton [phone] Mother Rylie Ibarra Afton [phone] ( 08/09/17) . Prognosis This patient was admitted following reported out of hospital cardiac arrest status post resuscitation, with ROSC. Patient stable, labs improving. With multiple chronic medical conditions and prior hospitalization and intubation about one year ago. Appears likely she can recover from current acute issues and return to her baseline status at her nursing facility, however she does remain at risk for complications and setbacks related to chronic conditions and debilitated status. . Code Status: Full Code Plan * Legal decision maker: Patient not . No children. No known HCS or advanced directive. Mother recently . Pt now able to participate in decision making post extubation, she wishes to designate sister Melissa as HCS. *of note their mother has just 08/10/17, which has been a source of stress for patient and her sister * Goals: Status post medical extubation, tolerating nasal cannula. She is oriented, though limited to no insight to acute hospital course. She is going to think about CODE STATUS, and talk more with her family about. For now goals are aggressive to continue hospital course in hopes of getting back to her baseline status and return to her long-term nursing facility residents. She does wish to complete healthcare surrogate naming her sister, palliative will assist her to complete this document. Sister is going to assist her to complete advanced directives. * CODE STATUS: Full code * SYMPTOMS: --dyspnea- hx severe COPD, o2 dependent, + CHF. CXR = There are new consolidative infiltrates in the right middle lobe. extubated 08/10, tolerating NC. CXR= lungs clear --Anxiety-patient with history anxiety, potential for worsened anxiety/AMS secondary to intubation, recently extubated, more comfortable. Has been resumed on her regular sertraline 100 mg. 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 --Pain-pt endorses pain to right flank region--nursing reports skin breakdown for which they have applied dressing and bariatric air bed has been ordered for patient. pt reports chronic pain to legs x years, and chronic intermittent pain to mid and right chest which in the past she has used oxycodone 1 or 2 a day at her facility with good relief. Consider adding prn oxycodone 5 mg or [place] 5 mg PO every 6 hours PRN pain. * Palliative care will continue to follow during hospital course as condition evolves, to assist patient/decision-maker with understanding of medical conditions, weighing benefits/burdens of treatment options, for clarification of goals of treatment. Additionally will assist with any symptoms of palliative concern Attestation To help prompt me to consider important information that might be impacting today's encounter and assessment, information from prior notes written by myself or my colleagues may have been "brought forward" into today's note. My signature on this note, however, is an attestation that I personally performed the exam, history, and/or decision-making noted today, and, unless otherwise indicated, the interactions with patient, family, and staff as well as the review of records all occurred today. I also attest that the listed assessment and stated plan reflect my best clinical judgment today based on the combination of historical information, prior notes, and today's exam/ interactions. When time spent is documented, it refers only to time spent today by the signer, or if indicated, combined time spent today by collaborating physician/nurse practitioner. Jazmyn Rodriguez Aug 14, 2017 11:14
--- NOTE | 2017-08-14 15:07 | HHI.PR ---
Subjective Remarks alert extubated in good spirits no SOB Objective Vital Signs Date Time Temp Pulse Resp B/P (MAP) Pulse Ox O2 Delivery O2 Flow Rate FiO2 08/14/17 14:00 114 08/14/17 13:00 111 31 105/61 (76) 91 08/14/17 12:00 102 08/14/17 12:00 99.6 102 29 128/79 (95) 94 08/14/17 11:00 100 28 124/73 (90) 93 08/14/17 10:00 100 08/14/17 10:00 100 26 134/83 (100) 95 08/14/17 09:00 104 33 121/58 (79) 91 08/14/17 08:00 98 08/14/17 08:00 98.3 98 34 126/63 (84) 93 08/14/17 07:38 96 Nasal Cannula 2.00 08/14/17 07:00 91 37 91/55 (67) 97 08/14/17 06:00 93 08/14/17 04:00 98.0 106 23 109/53 (71) 98 08/14/17 04:00 97 08/14/17 02:00 105 08/14/17 00:00 116 08/14/17 00:00 97.8 110 35 133/59 (83) 99 08/13/17 22:15 95 Nasal Cannula 3.50 08/13/17 22:00 119 08/13/17 20:00 109 08/13/17 20:00 98.0 104 28 196/90 (125) 96 08/13/17 18:00 102 08/13/17 17:00 92 08/13/17 16:00 90 08/13/17 16:00 98.3 90 27 176/83 (114) 100 08/13/17 15:15 96 Nasal Cannula 3.00 I/O 08/13/17 08/13/17 08/13/17 08/14/17 08/14/17 08/14/17 07:00 15:00 23:00 07:00 15:00 23:00 Intake Total 919 ml 412.5 ml 295 ml 2550 ml 150 ml Output Total 800 ml 700 ml Balance 919 ml 412.5 ml -505 ml 1850 ml 150 ml Intake Oral 300 ml IV Total 412.5 ml 100 ml 2250 ml 150 ml Tube Feeding 719 ml 155 ml Other 200 ml 40 ml Output Urine Total 800 ml 700 ml # Voids 3 # Bowel Movements 0 4 0 Result Diagram: 08/14/176 08/14/17445 Objective Remarks GENERAL: SKIN: Warm and dry. HEAD: Atraumatic. Normocephalic. EYES: Pupils equal and round. No scleral icterus. No injection or drainage. ENT: No nasal bleeding or discharge. Mucous membranes pink and moist. NECK: Trachea midline. No JVD. CARDIOVASCULAR: Regular rate and rhythm. RESPIRATORY: No accessory muscle use. Clear to auscultation. Breath sounds equal bilaterally. GASTROINTESTINAL: Abdomen soft, non-tender, nondistended. Hepatic and splenic margins not palpable. MUSCULOSKELETAL: Extremities without clubbing, cyanosis, or edema. No obvious deformities. NEUROLOGICAL: Awake and alert. No obvious cranial nerve deficits. Motor grossly within normal limits. Five out of 5 muscle strength in the arms and legs. Normal speech. PSYCHIATRIC: Appropriate mood and affect; insight and judgment normal. Assessment and Plan Assessment and Plan impression COPD respiratory failure pna DM HTN PLAN WEANED OFF THE VENT continue bronchodilators increase activity may go to med floor Viktoria Blum MD Aug 14, 2017 15:07
[2017-08-15] VITALS (19 sets, daily range): BP systolic 114–173; BP diastolic 65–107; PULSE 78–107; RESP 19–41; TEMP 97.5–98.3; O2SAT 91–100
[2017-08-15] MEDS: RESP: ALBUTEROL 2.5 MG/IPRATROPIUM 0.5 MG NEB (SCH) NEB ×2 (00:37→03:56)
[2017-08-15] MEDS: CHLORHEXIDINE GLUCONATE 2 % 1 PACK (2 CLOTHS) TOP SCH (04:00)
[2017-08-15] MEDS: INSULIN NovoLIN REGULAR SUPPLEMENTAL SCALE SQ SCH ×6 (04:00→23:15)
[2017-08-15] MEDS: methylPREDNISolone SOD SUCC 40 MG/1 ML VIAL IV PUSH SCH ×3 (04:08→17:27)
[2017-08-15] MEDS: ENOXAPARIN SODIUM 40 MG/0.4 ML SYRINGE SQ SCH (04:09)
[2017-08-15 05:48] LABS: ALBUMIN 2.9 GM/DL (3.4-5.0); ALKALINE PHOSPHATASE 63 U/L (45-117); ALT (GPT) 44 U/L (10-53); AST (GOT) 22 U/L (15-37); BLOOD UREA NITROGEN 22 MG/DL (7-18); CALCIUM 8.8 MG/DL (8.5-10.1); CHLORIDE 102 MEQ/L (98-107); CREATININE 0.76 MG/DL (0.50-1.00); GLOMERULAR FILTRATION RATE 92 ML/MIN (>89); GLUCOSE,RANDOM 124 MG/DL (74-106); SODIUM (NA) 139 MEQ/L (136-145); TOTAL BILIRUBIN ADULT 0.6 MG/DL (0.2-1.0); TOTAL PROTEIN 6.6 GM/DL (6.4-8.2)
[2017-08-15] MEDS: ARTIFICIAL TEARS OPTH SOLN 15 ML BTL EACH EYE SCH ×3 (06:00→22:00)
[2017-08-15] MEDS: ISOSORBIDE DINITRATE 10 MG TAB PO SCH ×3 (06:40→23:16)
--- NOTE | 2017-08-15 07:29 | HHI.PR ---
Subjective Remarks alert NO DISTRESS Objective Vital Signs Date Time Temp Pulse Resp B/P (MAP) Pulse Ox O2 Delivery O2 Flow Rate FiO2 08/15/17 06:00 78 08/15/17 04:00 86 08/15/17 04:00 98.2 86 21 114/65 (81) 100 08/15/17 02:00 90 08/15/17 00:00 100 08/15/17 00:00 98.3 100 25 136/81 (99) 97 08/14/17 23:40 24 08/14/17 22:00 103 08/14/17 20:00 93 08/14/17 20:00 98.4 93 28 150/84 (106) 100 08/14/17 19:50 96 Nasal Cannula 4.00 08/14/17 18:00 101 08/14/17 18:00 101 29 125/80 (95) 97 08/14/17 17:00 102 27 128/58 (81) 97 08/14/17 16:00 108 08/14/17 16:00 97.7 108 32 106/58 (74) 91 08/14/17 15:00 101 24 105/65 (78) 96 08/14/17 14:00 114 08/14/17 14:00 110 34 105/58 (74) 90 08/14/17 13:00 111 31 105/61 (76) 91 08/14/17 12:00 102 08/14/17 12:00 99.6 102 29 128/79 (95) 94 08/14/17 11:00 100 28 124/73 (90) 93 08/14/17 10:00 100 08/14/17 10:00 100 26 134/83 (100) 95 08/14/17 09:00 104 33 121/58 (79) 91 08/14/17 08:00 98 08/14/17 08:00 98.3 98 34 126/63 (84) 93 08/14/17 07:38 96 Nasal Cannula 2.00 I/O 08/14/17 08/14/17 08/14/17 08/15/17 08/15/17 08/15/17 07:00 15:00 23:00 07:00 15:00 23:00 Intake Total 2550 ml 250 ml 1350 ml 610 ml Output Total 700 ml 700 ml 800 ml Balance 1850 ml 250 ml 650 ml -190 ml Intake Oral 300 ml 1250 ml 360 ml IV Total 2250 ml 250 ml 100 ml 250 ml Output Urine Total 700 ml 700 ml 800 ml # Voids 2 # Bowel Movements 0 1 Result Diagram: 08/14/17 0446 08/15/17 0405 Objective Remarks GENERAL: SKIN: Warm and dry. HEAD: Atraumatic. Normocephalic. EYES: Pupils equal and round. No scleral icterus. No injection or drainage. ENT: No nasal bleeding or discharge. Mucous membranes pink and moist. NECK: Trachea midline. No JVD. CARDIOVASCULAR: Regular rate and rhythm. RESPIRATORY: No accessory muscle use. Clear to auscultation. Breath sounds equal bilaterally. GASTROINTESTINAL: Abdomen soft, non-tender, nondistended. Hepatic and splenic margins not palpable. MUSCULOSKELETAL: Extremities without clubbing, cyanosis, or edema. No obvious deformities. NEUROLOGICAL: Awake and alert. No obvious cranial nerve deficits. Motor grossly within normal limits. Five out of 5 muscle strength in the arms and legs. Normal speech. PSYCHIATRIC: Appropriate mood and affect; insight and judgment normal. Assessment and Plan Assessment and Plan impression COPD respiratory failure pna DM HTN PLAN continue bronchodilators increase activity may go to med floor Viktoria Blum MD Aug 15, 2017 07:29
[2017-08-15] MEDS: CHLORHEXIDINE 0.12% (ORAL KIT) 15 ML CUP MT SCH ×2 (08:00→20:00)
[2017-08-15] MEDS: RESP: BUDESONIDE 0.5 MG/2 ML NEB NEB SCH ×2 (08:01→20:28)
[2017-08-15] MEDS: COLLAGENASE OINT 30 GM TUBE TOPICAL PRN (08:48)
[2017-08-15] MEDS: SODIUM CHLORIDE 0.9% FLUSH 10 ML FLUSH IV FLUSH SCH ×2 (08:49→20:05)
[2017-08-15] MEDS: MUPIROCIN 2% OINT 1 APPLIC/GM SYR EACH NARE SCH ×2 (08:49→20:05)
[2017-08-15] MEDS: SODIUM CHLORIDE 0.9% FLUSH 10 ML FLUSH IV FLUSH PRN (08:49)
[2017-08-15] MEDS: CEFEPIME INJ 1,000 MG in SODIUM CHLORIDE 0.9% INJ 100 ML IV SCH ×2 (08:49→20:05)
[2017-08-15] MEDS: FUROSEMIDE 40 MG TAB PO SCH (08:50)
[2017-08-15] MEDS: ATORVASTATIN 40 MG TAB PO SCH (08:50)
[2017-08-15] MEDS: FAMOTIDINE 20 MG TAB PO SCH ×2 (08:50→20:06)
[2017-08-15] MEDS: FOLIC ACID 1 MG TAB PO SCH (08:50)
[2017-08-15] MEDS: GABAPENTIN 300 MG CAP PO SCH ×2 (08:50→20:06)
[2017-08-15] MEDS: ASPIRIN 81 MG CHEW TAB PO SCH (08:50)
[2017-08-15] MEDS: INSULIN DETEMIR 100 UNITS/ML VIAL SQ SCH ×2 (08:51→20:06)
[2017-08-15] MEDS: CLOPIDOGREL 75 MG TAB PO SCH (08:51)
[2017-08-15] MEDS: NYSTATIN 100,000 U/GM PWD 15 GM BTL TOPICAL SCH ×2 (08:51→20:06)
[2017-08-15] MEDS: SERTRALINE HCL 100 MG TAB PO SCH (08:51)
[2017-08-15] MEDS: DOCUSATE SODIUM 50 MG/SENNA 8.6 MG TAB PO SCH ×2 (09:00→20:06)
[2017-08-15 10:05] LABS: AUTOMATED NEUTROPHIL # 6.6 TH/MM3 (1.8-7.7); BASOPHIL % 0.1 % (0.0-2.0); HEMOGLOBIN 10.3 GM/DL (11.6-15.3); LYMPH % 7.3 % (9.0-44.0); LYMPHOCYTE # 0.6 TH/MM3 (1.0-4.8); MEAN CELL VOLUME 72.9 FL (80.0-100.0); MEAN CORPUSCULAR HGB CONC 30.2 % (32.0-36.0); MEAN PLATELET VOLUME 8.8 FL (7.0-11.0); MONO % 5.9 % (0.0-8.0); MONOCYTE # 0.4 TH/MM3 (0-0.9); NEUT % 86.7 % (16.0-70.0); PLATELET COUNT 250 TH/MM3 (150-450); RED BLOOD COUNT 4.67 MIL/MM3 (4.00-5.30); RED CELL DISTRIBUTION WIDTH 17.2 % (11.6-17.2); WHITE BLOOD COUNT 7.6 TH/MM3 (4.0-11.0)
[2017-08-15] MEDS ORDERED: OXYC-392 PO (11:37)
[2017-08-15] MEDS: guaiFENesin E.R. 600 MG TAB PO SCH ×2 (12:41→20:05)
[2017-08-15] MEDS: LIDOCAINE HCL 5% PATCH T-DERMAL SCH (12:42)
--- NOTE | 2017-08-15 18:36 | HHI.PR ---
Subjective Remarks Nursing denies any deterioration since last night. Patient only reports some chest pain associated with coughing. Says her breathing is better since admission Objective Vital Signs Date Time Temp Pulse Resp B/P (MAP) Pulse Ox O2 Delivery O2 Flow Rate FiO2 08/15/17 18:00 93 08/15/17 16:00 98.0 93 23 149/69 (95) 100 08/15/17 16:00 93 08/15/17 15:00 96 22 130/67 (88) 98 08/15/17 14:00 104 08/15/17 14:00 104 29 140/66 (90) 99 08/15/17 13:00 102 41 172/107 (128) 98 08/15/17 12:00 98.0 96 23 117/76 (90) 99 08/15/17 12:00 96 08/15/17 11:00 101 25 117/74 (88) 98 08/15/17 10:00 98 19 122/74 (90) 99 08/15/17 10:00 98 08/15/17 09:00 107 27 115/69 (84) 91 08/15/17 08:03 99 Nasal Cannula 4.00 08/15/17 08:00 97.5 85 19 131/68 (89) 99 08/15/17 08:00 85 08/15/17 07:00 99 33 136/80 (98) 93 08/15/17 06:00 78 08/15/17 04:00 86 08/15/17 04:00 98.2 86 21 114/65 (81) 100 08/15/17 02:00 90 08/15/17 00:00 100 08/15/17 00:00 98.3 100 25 136/81 (99) 97 08/14/17 23:40 24 08/14/17 22:00 103 08/14/17 20:00 93 08/14/17 20:00 98.4 93 28 150/84 (106) 100 08/14/17 19:50 96 Nasal Cannula 4.00 I/O 08/14/17 08/14/17 08/14/17 08/15/17 08/15/17 08/15/17 07:00 15:00 23:00 07:00 15:00 23:00 Intake Total 2550 ml 250 ml 1350 ml 610 ml 100 ml 708 ml Output Total 700 ml 700 ml 800 ml 1200 ml Balance 1850 ml 250 ml 650 ml -190 ml 100 ml -492 ml Intake Oral 300 ml 1250 ml 360 ml 708 ml IV Total 2250 ml 250 ml 100 ml 250 ml 100 ml Output Urine Total 700 ml 700 ml 800 ml 1200 ml # Voids 2 # Bowel Movements 0 1 1 Result Diagram: 08/15/17 0844 08/15/17 0405 Objective Remarks Coarse breath sounds bilaterally, unlabored breathing, chronically deformed right leg, no cyanosis, A/P Assessment and Plan 66yo F from [facility] with PMH of HTN, DM, COPD on home O2, ID, CHF, morbid obesity was brought here from retirement for supposed cardiac arrest s/ p successful resuscitation. Pt is AAOx3 and said I want to go home now. Pt is on 3L O2 normally and has some wheezing. When I ask if she wants any treatments , she said she does so will give nebulizer treatments. Pt is saturating at low 90s on 3L NC and feel that this is her baseline. Denies any fever, chest pain, sob, n/v, abdominal pain, focal weakness or numbness. Pt reevaluated at bedside and said she is still sob. She subsequently dropped O2sats to at 85% on 4L NC. Patient was started on BIPAP. CXR showed new consolidative infiltrates in right middle lobe and stable left lower lobe consolidation. Pt is from retirement so covered with vancomycin and zosyn for HCAP. Labs reviewed, mild leukocytosis at 13,000. Mild hyperkalemia at 5.5 but there was slight hemolysis. Glucose elevated at 222. No increased anion gap. Troponin negative. BUN/creatinine elevated at 37/1.50 which is more elevated than baseline. Pt given NS IVF. Pt reevaluated at bedside and saturating at 95% on BIPAP 40%. Patient was accepted for admission to critical care and At that time of my eval patient resting comfortably on BIPAP. 08/11: Intubated in ED by ED physician. Currently remains sedated and paralyzed after receiving 100 mg rocuronium. Follow-up ABG pending. 08/12: Resting in bed on CPAP awake and alert and following commands. Tolerating tube feeding. Afebrile. Transaminases and creatinine have normalized 08/13: Tolerating CPAP trial. Attempted extubation today. Awake and alert and following commands. Transaminases creatinine normalized. 08/14 Patient s/p extubation yesterday. Awake and alert. Afebrile. 08/15: tolerating po intake Chronic benzodiazepine use with lorazepam 0.5 mg every 8 hours as needed Peripheral neuropathy Continue gabapentin Depression disorder NOS Continue sertraline Chronic diastolic heart failure/Hypertension/Dyslipidemia/PAD furosemide atorvastatin isosorbide dinitrate clopidogrel aspirin Acute on chronic respiratory failure- extubated 08/13 History of COPD Healthcare associated pneumonia Albuterol/ipratropium + Budesonide Solumederol IV (decrease steroids mackenzie) starting mucinex pulm following Continue empiric Abx - cefepime/ Zithromax BC from 08/11: NGTD, sputum cx 08/11: normal resp neena ordering procalcitonin, if neg can discontinue abx Microcytic anemia Continue ferrous sulfate Diabetes mellitus SSI medium scale for glycemic control. insulin glargine 10 units at night with NovoLog sliding scale insulin at home Insulin detemir 10 units BID TSH 0.039 Normal T4/T3. Recheck TSH in 4-6 weeks if her critical illness Prophylaxis: Famotidine, SCDs/enoxaparin Rfaael Lutz MD Aug 15, 2017 18:36
[2017-08-15] MEDS: AZITHROMYCIN INJ 500 MG in SODIUM CHLOR 0.9% 250 ML INJ 250 ML IV SCH (23:16)
[2017-08-16] VITALS (14 sets, daily range): BP systolic 128–166; BP diastolic 63–84; PULSE 80–104; RESP 21–28; TEMP 97.4–98.6; O2SAT 92–97
[2017-08-16] MEDS: REMOVE OLD LIDOCAINE PATCH T-DERMAL SCH (01:00)
[2017-08-16] MEDS: methylPREDNISolone SOD SUCC 40 MG/1 ML VIAL IV PUSH SCH ×2 (03:38→10:16)
[2017-08-16] MEDS: CHLORHEXIDINE GLUCONATE 2 % 1 PACK (2 CLOTHS) TOP SCH (03:41)
[2017-08-16] MEDS: INSULIN NovoLIN REGULAR SUPPLEMENTAL SCALE SQ SCH ×5 (03:45→20:00)
[2017-08-16] MEDS: ARTIFICIAL TEARS OPTH SOLN 15 ML BTL EACH EYE SCH ×3 (06:00→21:22)
[2017-08-16] MEDS: ISOSORBIDE DINITRATE 10 MG TAB PO SCH ×3 (06:21→21:22)
[2017-08-16] MEDS: ENOXAPARIN SODIUM 40 MG/0.4 ML SYRINGE SQ SCH (06:22)
[2017-08-16] MEDS: CHLORHEXIDINE 0.12% (ORAL KIT) 15 ML CUP MT SCH ×2 (08:00→20:00)
[2017-08-16] MEDS: RESP: BUDESONIDE 0.5 MG/2 ML NEB NEB SCH ×2 (08:11→20:15)
[2017-08-16] MEDS: DOCUSATE SODIUM 50 MG/SENNA 8.6 MG TAB PO SCH ×2 (10:14→21:00)
[2017-08-16] MEDS: FOLIC ACID 1 MG TAB PO SCH (10:14)
[2017-08-16] MEDS: FAMOTIDINE 20 MG TAB PO SCH ×2 (10:14→21:00)
[2017-08-16] MEDS: ATORVASTATIN 40 MG TAB PO SCH (10:14)
[2017-08-16] MEDS: SERTRALINE HCL 100 MG TAB PO SCH (10:14)
[2017-08-16] MEDS: ASPIRIN 81 MG CHEW TAB PO SCH (10:14)
[2017-08-16] MEDS: MUPIROCIN 2% OINT 1 APPLIC/GM SYR EACH NARE SCH ×2 (10:14→21:00)
[2017-08-16] MEDS: CEFEPIME INJ 1,000 MG in SODIUM CHLORIDE 0.9% INJ 100 ML IV SCH ×2 (10:15→21:00)
[2017-08-16] MEDS: GABAPENTIN 300 MG CAP PO SCH ×2 (10:15→21:00)
[2017-08-16] MEDS: CLOPIDOGREL 75 MG TAB PO SCH (10:15)
[2017-08-16] MEDS: INSULIN DETEMIR 100 UNITS/ML VIAL SQ SCH ×2 (10:16→21:00)
[2017-08-16] MEDS: SODIUM CHLORIDE 0.9% FLUSH 10 ML FLUSH IV FLUSH SCH ×2 (10:17→21:00)
[2017-08-16] MEDS: NYSTATIN 100,000 U/GM PWD 15 GM BTL TOPICAL SCH ×2 (10:17→21:00)
[2017-08-16] MEDS: FUROSEMIDE 40 MG TAB PO SCH (10:17)
[2017-08-16] MEDS: LIDOCAINE HCL 5% PATCH T-DERMAL SCH (10:47)
[2017-08-16] MEDS: guaiFENesin E.R. 600 MG TAB PO SCH ×2 (10:48→21:00)
--- NOTE | 2017-08-16 20:13 | HHI.PR ---
Subjective Remarks Patient states fells better denies cp/sob better good o2 sat on 3 liters nc Objective Vitals Vital Signs Date Time Temp Pulse Resp B/P (MAP) Pulse Ox O2 Delivery O2 Flow Rate FiO2 08/16/17 18:00 104 08/16/17 16:34 92 Nasal Cannula 3.00 08/16/17 16:00 98.6 95 28 131/63 (85) 94 08/16/17 16:00 95 08/16/17 14:00 97 08/16/17 12:00 98.0 92 23 166/77 (106) 94 08/16/17 12:00 92 08/16/17 10:00 94 08/16/17 08:11 93 Nasal Cannula 3.00 08/16/17 08:00 97.4 87 26 132/84 (100) 97 08/16/17 08:00 87 08/16/17 06:00 89 08/16/17 04:00 80 08/16/17 04:00 98.0 80 21 131/70 (90) 96 08/16/17 02:00 88 08/16/17 00:00 91 08/16/17 00:00 98.2 91 21 128/70 (89) 94 08/15/17 22:00 96 08/15/17 21:07 24 08/15/17 20:32 100 Nasal Cannula 4.00 I/O 08/15/17 08/15/17 08/15/17 08/16/17 08/16/17 08/16/17 07:00 15:00 23:00 07:00 15:00 23:00 Intake Total 610 ml 100 ml 808 ml 730 ml 100 ml 1225 ml Output Total 800 ml 1200 ml 1200 ml 2000 ml Balance -190 ml 100 ml -392 ml -470 ml 100 ml -775 ml Intake Oral 360 ml 708 ml 480 ml 1225 ml IV Total 250 ml 100 ml 100 ml 250 ml 100 ml Output Urine Total 800 ml 1200 ml 1200 ml 2000 ml # Voids 2 # Bowel Movements 1 1 Result Diagram: 08/15/17 0844 08/15/17 0405 Objective Remarks AAox3 nad Clear lungs BL S1S2 (+) RRR abdomen soft, nt, nd no edema in lower extremities A/P Problem List: (1) Encephalopathy ICD Code: G93.40 - Encephalopathy, unspecified Status: Resolved (2) Acute hypoxic and hypercarbic respiratory failure Status: Resolved Plan: The patient initially presented with respiratory distress. Intubated in the emergency department by the emergency department physician. Patient extubated on 08/11. (3) Depression ICD Code: F32.9 - Major depressive disorder, single episode, unspecified Status: Chronic Plan: Seems to be stable. Continue Zoloft. (4) HTN (hypertension) ICD Code: I10 - Essential (primary) hypertension Plan: Blood pressure acceptable. Continue to monitor vital signs (5) Hyperlipidemia ICD Code: E78.5 - Hyperlipidemia, unspecified Status: Chronic Plan: On a statin. (6) HCAP (healthcare-associated pneumonia) ICD Code: J18.9 - Pneumonia, unspecified organism Plan: Status post treatment with IV antibiotics. The patient currently on IV azithromycin IV cefepime. (7) COPD with exacerbation ICD Code: J44.1 - Chronic obstructive pulmonary disease with (acute) exacerbation Plan: Treated with IV steroids, IV antibiotics as above. Improving. Decreased dose of Solu-Medrol to 40 mg IV daily. (8) Transaminitis ICD Code: R74.0 - Nonspecific elevation of levels of transaminase and lactic acid dehydrogenase [LDH] Plan: Elevated transaminases on admission which have trended down to normal levels. This likely secondary to sepsis and acute infection. Continue to monitor LFTs. (9) CYNTHIA (acute kidney injury) ICD Code: N17.9 - Acute kidney failure, unspecified Plan: Next visit prerenal azotemia from dehydration, resolved after IV fluid demonstration. (10) Microcytic anemia ICD Code: D50.9 - Iron deficiency anemia, unspecified Status: Chronic Plan: Hemoglobin is being monitored and remains stable. On iron sulfate. Patient will need outpatient follow-up with PCP or gastroenterology for outpatient workup of anemia. (11) Sepsis ICD Code: A41.9 - Sepsis Status: Resolved Plan: Sepsis present on admission, patient presented with tachycardia and leukocytosis. Sepsis likely secondary to H CAP and COPD exacerbation. Sepsis has clinically resolved. Monitor vital signs Blood cultures obtained and negative 5. (12) Diabetes mellitus ICD Code: E11.9 - Type 2 diabetes mellitus without complications Plan: On SSI for glycemic control and insulin Levemir 10 units subcu twice daily. Blood sugars to be elevated in the 200s range. Continue to monitor Accu-Cheks. Continue gabapentin for diabetic neuropathy. (13) Abnormal TSH ICD Code: R94.6 - Abnormal results of thyroid function studies Status: Acute Plan: TSH 0.039. Normal T4/T3. Recheck TSH in 4-6 weeks. Abnormal TSH likely secondary to euthyroid sick syndrome. 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
[2017-08-17] VITALS (7 sets, daily range): BP systolic 93–111; BP diastolic 46–59; PULSE 71–85; RESP 17–22; TEMP 97.6–98.5; O2SAT 98–100
[2017-08-17] MEDS: AZITHROMYCIN INJ 500 MG in SODIUM CHLOR 0.9% 250 ML INJ 250 ML IV SCH (00:17)
[2017-08-17] MEDS: REMOVE OLD LIDOCAINE PATCH T-DERMAL SCH (00:24)
[2017-08-17] MEDS: INSULIN NovoLIN REGULAR SUPPLEMENTAL SCALE SQ SCH ×4 (04:00→12:00)
[2017-08-17] MEDS: ARTIFICIAL TEARS OPTH SOLN 15 ML BTL EACH EYE SCH ×2 (05:54→15:47)
[2017-08-17] MEDS: ISOSORBIDE DINITRATE 10 MG TAB PO SCH ×2 (05:55→05:58)
[2017-08-17] MEDS: ENOXAPARIN SODIUM 40 MG/0.4 ML SYRINGE SQ SCH (05:55)
[2017-08-17] MEDS: RESP: BUDESONIDE 0.5 MG/2 ML NEB NEB SCH (07:48)
[2017-08-17] MEDS: CHLORHEXIDINE 0.12% (ORAL KIT) 15 ML CUP MT SCH (08:00)
[2017-08-17] MEDS ORDERED: methylPREDNISolone SOD SUCC 40 MG/1 ML VIAL IV PUSH SCH (09:00)
[2017-08-17] MEDS: SERTRALINE HCL 100 MG TAB PO SCH (09:32)
[2017-08-17] MEDS: GABAPENTIN 300 MG CAP PO SCH (09:32)
[2017-08-17] MEDS: guaiFENesin E.R. 600 MG TAB PO SCH (09:32)
[2017-08-17] MEDS: CLOPIDOGREL 75 MG TAB PO SCH (09:32)
[2017-08-17] MEDS: DOCUSATE SODIUM 50 MG/SENNA 8.6 MG TAB PO SCH (09:32)
[2017-08-17] MEDS: FAMOTIDINE 20 MG TAB PO SCH (09:32)
[2017-08-17] MEDS: ATORVASTATIN 40 MG TAB PO SCH (09:33)
[2017-08-17] MEDS: FUROSEMIDE 40 MG TAB PO SCH (09:33)
[2017-08-17] MEDS: ASPIRIN 81 MG CHEW TAB PO SCH (09:33)
[2017-08-17] MEDS: FOLIC ACID 1 MG TAB PO SCH (09:33)
[2017-08-17] MEDS: SODIUM CHLORIDE 0.9% FLUSH 10 ML FLUSH IV FLUSH SCH (09:34)
[2017-08-17] MEDS: CEFEPIME INJ 1,000 MG in SODIUM CHLORIDE 0.9% INJ 100 ML IV SCH (09:34)
[2017-08-17] MEDS: MUPIROCIN 2% OINT 1 APPLIC/GM SYR EACH NARE SCH (09:34)
[2017-08-17] MEDS: INSULIN DETEMIR 100 UNITS/ML VIAL SQ SCH (09:35)
[2017-08-17 09:51] LABS: HEMATOCRIT 37.1 % (35.0-46.0); HEMOGLOBIN 11.1 GM/DL (11.6-15.3); MEAN CELL VOLUME 72.6 FL (80.0-100.0); MEAN CORPUSCULAR HEMOGLOBIN 21.7 PG (27.0-34.0); PLATELET COUNT 277 TH/MM3 (150-450); RED BLOOD COUNT 5.11 MIL/MM3 (4.00-5.30); RED CELL DISTRIBUTION WIDTH 17.2 % (11.6-17.2); WHITE BLOOD COUNT 8.1 TH/MM3 (4.0-11.0)
[2017-08-17] MEDS ORDERED: FERROUS SULFATE 325 MG (65 MG ELEMENTAL IRON) TAB PO SCH (10:15)
[2017-08-17 10:19] LABS: BICARBONATE 33.4 MEQ/L (21.0-32.0); CALCIUM 8.9 MG/DL (8.5-10.1); CREATININE 0.63 MG/DL (0.50-1.00); PHOSPHORUS 4.2 MG/DL (2.5-4.9)
[2017-08-17] MEDS: NYSTATIN 100,000 U/GM PWD 15 GM BTL TOPICAL SCH (10:28)
[2017-08-17] MEDS ORDERED: Budeson-Formot 160-4.5 Mcg Inh INH (15:19)
[2017-08-17] MEDS ORDERED: NOVOLOGP2 SQ (15:20)
--- NOTE | 2017-08-17 15:21 | HHI.DCPOC ---
Discharge Care Plan Diagnosis: (1) Acute hypoxic and hypercarbic respiratory failure (2) HCAP (healthcare-associated pneumonia) (3) Abnormal TSH (4) COPD with exacerbation (5) CYNTHIA (acute kidney injury) (6) Transaminitis (7) HTN (hypertension) (8) Sepsis (9) Encephalopathy (10) Microcytic anemia (11) Hyperlipidemia (12) Depression (13) Diabetes mellitus Goals to Promote Your Health * To prevent worsening of your condition and complications * To maintain your health at the optimal level Directions to Meet Your Goals Take your medications as prescribed Follow your dietary instruction Follow activity as directed Keep your appointments as scheduled Take your immunizations and boosters as scheduled If your symptoms worsen call your PCP, if no PCP go to Urgent Care Center or Emergency Room Smoking is Dangerous to Your Health. Avoid second hand smoke Call the 24-hour hour crisis hotline for domestic abuse at Ian Yeboah MD Aug 17, 2017 15:21
[2017-08-17] MEDS: LIDOCAINE HCL 5% PATCH T-DERMAL SCH (15:45)
== END 2017-08-17 16:10 | DRG 208 ==
LOC: NEPC 18:15 → NEDA 22:23 → NEDH 08-11 06:08 → HIME 08-11 12:45
PROVIDERS: ADMIT Hospitalist; ATTEND Hospitalist
PROC: 5A1945Z Respiratory Ventilation, 24-96 Consecutive Hours (ICD-10-PCS; principal; 2017-08-11)
PROC: 0BH17EZ Insertion of Endotracheal Airway into Trachea, Via Natural or Artificial Opening (ICD-10-PCS; 2017-08-11)
DX: J96.21 Acute and chronic respiratory failure with hypoxia (principal); I46.9 Cardiac arrest, cause unspecified; A41.9 Sepsis, unspecified organism; N17.9 Acute kidney failure, unspecified; G92 Toxic encephalopathy; J18.9 Pneumonia, unspecified organism; I11.0 Hypertensive heart disease with heart failure; I50.32 Chronic diastolic (congestive) heart failure; J44.0 Chronic obstructive pulmonary disease with (acute) lower respiratory infection; J44.1 Chronic obstructive pulmonary disease with (acute) exacerbation; Z68.43 Body mass index [BMI] 50.0-59.9, adult; E87.1 Hypo-osmolality and hyponatremia; Z99.81 Dependence on supplemental oxygen; D50.9 Iron deficiency anemia, unspecified; J96.22 Acute and chronic respiratory failure with hypercapnia; H26.9 Unspecified cataract; M06.9 Rheumatoid arthritis, unspecified; K21.9 Gastro-esophageal reflux disease without esophagitis; H40.9 Unspecified glaucoma; I25.10 Atherosclerotic heart disease of native coronary artery without angina pectoris; G89.29 Other chronic pain; E87.5 Hyperkalemia; M79.661 Pain in right lower leg; F41.9 Anxiety disorder, unspecified; F32.9 Major depressive disorder, single episode, unspecified; G47.33 Obstructive sleep apnea (adult) (pediatric); Z51.5 Encounter for palliative care; Y95 Nosocomial condition; E78.5 Hyperlipidemia, unspecified; E11.42 Type 2 diabetes mellitus with diabetic polyneuropathy; E83.39 Other disorders of phosphorus metabolism; R74.0 Nonspecific elevation of levels of transaminase and lactic acid dehydrogenase [LDH]; E07.81 Sick-euthyroid syndrome; E66.01 Morbid (severe) obesity due to excess calories; I25.2 Old myocardial infarction; Z87.891 Personal history of nicotine dependence; Z79.82 Long term (current) use of aspirin; Z79.4 Long term (current) use of insulin; Z79.899 Other long term (current) drug therapy; Z99.3 Dependence on wheelchair; Z86.14 Personal history of Methicillin resistant Staphylococcus aureus infection; S81.801D Unspecified open wound, right lower leg, subsequent encounter
CPT/HCPCS: 36600; 71045; 71046; 76536; 76705; 80048; 80053; 80061; 80202; 81001; 82550; 82552; 82805; 82948; 83735; 83880; 84100; 84132; 84439; 84443; 84481; 84484; 85007; 85025; 85027; 85610; 85730; 87040; 87070; 87205; 87641; 93005; 94002; 94003; 94150; 94640; 94664; 96365; 96375; J0360; J0456; J0610; J0692; J1644; J1650; J1815; J1940; J2543; J2920; J2930; J3010; J3370; J7030; J7040; J7050; J7613; J7626

== ENCOUNTER 2017-11-09 09:27 | Inpatient (IN) | payer MEDICARE, MEDICAID ==
[2017-11-09] VITALS (14 sets, daily range): BP systolic 123–159; BP diastolic 56–74; PULSE 91–107; RESP 13–29; TEMP 97.6–98.5; O2SAT 86–100
[~2017-11-09] VITALS: Ht 157.5 cm; Wt 126.0 kg
[~2017-11-09 09:27] MED LIST changes: +Budeson-Formot 160-4.5 Mcg Inh INH; +GABA300C5 PO; -ISOS30TA3 PO; -LISI-519 PO; +OXYC-392 PO; -SODI0.9I29 IV FLUSH; -[UNRECOGNIZED DRUG - OTHER] TOPICAL
--- NOTE | 2017-11-09 09:43 | PD ---
HPI Chief Complaint: Respiratory Symptoms Time Seen by Provider: 09:30 Travel History International Travel<30 days: No Contact w/Intl Traveler<30days: No Traveled to known affect area: No History of Present Illness HPI The patient is a 66-year-old -Iranian female who presents to the emergency department for shortness of breath. The patient states she has a history of sleep apnea, congestive heart failure, and COPD. The patient states her CPAP machine was not working last night, the tube was malfunctioning, she awakened in the middle the night with shortness of breath. EMS states they were told the patient's oxygen saturation was in the 80s, however, when they arrived the patient's pulse oximetry monitoring was on a finger that had nail emirati. They stated they moved into a fingernail that did not have nail emirati and the O2 saturation was in the 90s. The patient did receive 1 nebulizer prior to arrival. Upon arrival she does complain of mild shortness of breath, does know she is oxygen dependent at 3 L via nasal cannula. She denies any chest pain, fever, nausea, vomiting, diarrhea, or abdominal pain. Symptoms are moderate. She denies any new cough. PFSH Past Medical History Hx Anticoagulant Therapy: Yes (PLAVIX) Arthritis: Yes (RA) Asthma: No Autoimmune Disease: No Blood Disorders: No Anxiety: Yes Depression: Yes Heart Rhythm Problems: No Cancer: No Cardiac Catheterization: Yes (JUNE 2009) Cardiovascular Problems: Yes High Cholesterol: Yes Chemotherapy: No Chest Pain: Yes Congestive Heart Failure: Yes COPD: Yes Cerebrovascular Accident: No Coronary Artery Disease: Yes Diabetes: Yes (TYPE II) Diminished Hearing: No Diverticulitis: Yes Endocrine: Yes Gastrointestinal Disorders: Yes GERD: Yes Glaucoma: Yes Genitourinary: No Headaches: No Hepatitis: No Hiatal Hernia: No Heparin Induced Thrombocytopen: No Hypertension: Yes Immune Disorder: Yes Implanted Vascular Access Dvce: No Kidney Stones: No Musculoskeletal: Yes (RA, DEFORMITY OF THE RT LOWER EXTREMITY) Neurologic: Yes (ENCEPHALOPATHY) Psychiatric: Yes Reproductive: No Respiratory: Yes (copd, chf) Immunizations Current: No Migraines: No Myocardial Infarction: Yes Pneumonia: Yes Radiation Therapy: No Renal Failure: No Seizures: No Sickle Cell Disease: No Sleep Apnea: Yes Thyroid Disease: No Ulcer: No Menopausal: No Tubal Ligation: Yes Past Surgical History Abdominal Surgery: Yes AICD: No Appendectomy: No Arteriovenous Shunt: No Cardiac Surgery: Yes (STENTS RIGHT ILIAC ARTERY) Section: Yes Cholecystectomy: No Coronary Artery Bypass Graft: No Ear Surgery: No Endocrine Surgery: No Eye Surgery: Yes (CATARACTS) Genitourinary Surgery: No Gynecologic Surgery: Yes (PARTIAL HYSTERECTOMY, CSECTION) Hysterectomy: Yes Joint Replacement: No Neurologic Surgery: No Oral Surgery: No Pacemaker: No Thoracic Surgery: No Other Surgery: Yes (CYST REMOVED RT BREAST) Social History Alcohol Use: No Tobacco Use: No (QUIT 7 YEARS AGO) Substance Use: No Allergies-Medications (Allergen,Severity, Reaction): Coded Allergies: *MDRO Multi-Drug Resistant Organism (Verified Adverse Reaction, Unknown, MRSA, 11/09/17) MRSA PCR positive - 06/28/2015 & 06/03/16 Reported Meds & Prescriptions Reported Meds & Active Scripts Active Novolog Inj (Insulin Aspart) 1,000 Unit/10 Ml Vial 2-12 Units SQ ACHS Max dose at bedtime (8) units; sugars less than 70,(0) units; sugars 150-199,(2) units; sugars 200-249,(4) units; sugars 250-299,(7) units; sugars 300-349,(10) units; sugars greater than 349,(12)units Reported Zofran (Ondansetron HCl) 4 Mg Tab 4 Mg PO Q6HR PRN Januvia (Sitagliptin Phosphate) 100 Mg Tab 100 Mg PO DAILY Phenergan (Promethazine HCl) 25 Mg Tablet 25 Mg PO Q6H PRN Phenergan Supp (Promethazine HCl) 25 Mg Supp 25 Mg RECTAL Q6H PRN Nystatin Topical (Nystatin) 100,000 unit/gm Cream 1 Applic TOPICAL BID Apply to groin & abdominal folds every day and evening shift Natural Balance Tears Opth Drops (Artificial Tear Solution Opth Drops) 0.1-0.3% Soln 1 Drop EACH EYE BID Lisinopril 5 Mg Tab 5 Mg PO DAILY Isosorbide Mononitrate ER (Isosorbide Mononitrate) 30 Mg Refugio 30 Mg PO DAILY Mucus Relief ER (Guaifenesin) 600 Mg Tab 600 Mg PO Q12HR PRN 14 Days Flexeril (Cyclobenzaprine HCl) 10 Mg Tab 10 Mg PO Q8HR PRN When present supply of Cyclobenzaprine is completed, please order Tizanidine 2mg q8h prn instead Claritin (Loratadine) 10 Mg Tablet 10 Mg PO DAILY Symbicort Inh (Budesonide/Formoterol Fumarate) 160-4.5 Mcg/Act Aero 2 Puff INH Q12HR Ascorbic Acid 500 Mg Tab 500 Mg PO BID Artificial Tears (Dextran 70/Hypromellose) 1 Each Droperette 2 Drop EACH EYE Q4HR PRN Folic Acid 0.8 Mg Tab 800 Mcg PO DAILY Cerovite Advanced Formula (Multiple Vitamins W/ Minerals) 18 Mg Iron-400 Mcg Tab 1 Tab PO DAILY Oxycodone (Oxycodone HCl) 5 Mg Tab 5 Mg PO Q4H PRN Gabapentin 300 Mg Cap 300 Mg PO BID Ativan (Lorazepam) 0.5 Mg Tab 0.5 Mg PO Q8H PRN Zantac (Ranitidine HCl) 150 Mg Tab 150 Mg PO BID Magnesium Oxide 400 Mg Tab 400 Mg PO DAILY Lantus Inj (Insulin Glargine) 1,000 Unit/10 Ml Vial 10 Units SQ HS Ferrousul (Ferrous Sulfate) 325 Mg (65 Mg Iron) Tab 325 Mg PO DAILY Tylenol (Acetaminophen) 325 Mg Tab 650 Mg PO Q4H PRN Zoloft (Sertraline HCl) 100 Mg Tab 100 Mg PO DAILY Furosemide 40 Mg Tab 40 Mg PO DAILY Potassium Chloride ER (Potassium Chloride) 10 Meq Cap 10 Meq PO DAILY Plavix (Clopidogrel Bisulfate) 75 Mg Tab 75 Mg PO DAILY Atorvastatin (Atorvastatin Calcium) 40 Mg Tab 40 Mg PO HS Aspirin 81 Mg Chew 81 Mg PO DAILY Duoneb (Ipratropium-Albuterol Neb) 0.5-2.5 Mg/3 Ml Neb 3 Ml NEB TID Review of Systems Except as stated in HPI: all other systems reviewed are Neg General / Constitutional: No: Fever HENT: No: Lightheadedness Cardiovascular: No: Chest Pain or Discomfort Respiratory: Positive: Shortness of Breath, No: Cough, Wheezing, Orthopnea Gastrointestinal: No: Nausea, Vomiting, Abdominal Pain Musculoskeletal: No: Weakness Neurologic: No: Dizziness Physical Exam Narrative GENERAL: Awake, alert, pleasant 66-year-old female who appears her stated age and is in no acute respiratory distress. SKIN: Focused skin assessment warm/dry. HEAD: Atraumatic. Normocephalic. EYES: Mild periorbital edema. No injection or drainage. ENT: No nasal bleeding or discharge. Mucous membranes pink and moist. NECK: Trachea midline. No JVD. CARDIOVASCULAR: Regular, tachycardic with a heart rate of 105. RESPIRATORY: Tachypnea with a respiratory rate of 22, diminished breath sounds in the bases bilateral. GASTROINTESTINAL: Abdomen soft, obese, no rebound tenderness. 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 Atrophy noted. NEUROLOGICAL: Awake and alert. No obvious cranial nerve deficits. Motor grossly within normal limits. Normal speech. Nonfocal. Oriented 4. PSYCHIATRIC: Appropriate mood and affect; insight and judgment normal. Data Data Last Documented VS Vital Signs Date Time Temp Pulse Resp B/P (MAP) Pulse Ox O2 Delivery O2 Flow Rate FiO2 11/09/17 10:00 93 Nasal Cannula 4.00 11/09/17 09:30 98.5 107 22 128/74 (92) Orders Orders Complete Blood Count With Diff (11/09/17 09:38) Comprehensive Metabolic Panel (11/09/17:38) B-Type Natriuretic Peptide (11/09/17:38) Magnesium (Mg) (11/09/17 09:38) Ckmb (Isoenzyme) Profile (11/09/17 09:38) Troponin I (11/09/17 09:38) Urinalysis - C+S If Indicated (11/09/17 09:38) Blood Culture (11/09/17 09:38) Iv Access Insert/Monitor (11/09/17 09:38) Electrocardiogram (11/09/17 09:38) Ecg Monitoring (11/09/17 09:38) Oximetry (11/09/17 09:38) Oxygen Administration (11/09/17 09:38) Chest, Single Ap (11/09/17 09:38) Sodium Chloride 0.9% Flush (Ns Flush) (11/09/17 09:45) Albuterol-Ipratropium Neb (Duoneb Neb) (11/09/17 09:45) Lactic Acid (11/09/17 09:38) Morphine Inj (Morphine Inj) (11/09/17 10:45) Ondansetron Odt (Zofran Odt) (11/09/17 10:45) Furosemide Inj (Lasix Inj) (11/09/17 11:30) Resp Bipap / Cpap Non Invas Vt (11/09/17 ) Admit Order (Ed Use Only) (11/09/17 11:41) Labs Laboratory Tests Test 11/09/17 09:32 11/09/17 09:52 11/09/17 11:05 D-Dimer Quantitative (PE/DVT) 0.61 MG/L FEU White Blood Count 10.9 TH/MM3 Red Blood Count 4.81 MIL/MM3 Hemoglobin 10.8 GM/DL Hematocrit 36.9 % Mean Corpuscular Volume 76.7 FL Mean Corpuscular Hemoglobin 22.4 PG Mean Corpuscular Hemoglobin Concent 29.2 % Red Cell Distribution Width 17.8 % Platelet Count 277 TH/MM3 Mean Platelet Volume 8.6 FL Neutrophils (%) (Auto) 83.7 % Lymphocytes (%) (Auto) 8.5 % Monocytes (%) (Auto) 7.4 % Eosinophils (%) (Auto) 0.1 % Basophils (%) (Auto) 0.3 % Neutrophils # (Auto) 9.1 TH/MM3 Lymphocytes # (Auto) 0.9 TH/MM3 Monocytes # (Auto) 0.8 TH/MM3 Eosinophils # (Auto) 0.0 TH/MM3 Basophils # (Auto) 0.0 TH/MM3 CBC Comment DIFF FINAL Differential Comment Blood Urea Nitrogen 28 MG/DL Creatinine 1.12 MG/DL Random Glucose 225 MG/DL Total Protein 7.9 GM/DL Albumin 3.2 GM/DL Calcium Level 8.6 MG/DL Magnesium Level 2.7 MG/DL Alkaline Phosphatase 105 U/L Aspartate Amino Transf (AST/SGOT) 26 U/L Alanine Aminotransferase (ALT/SGPT) 22 U/L Total Bilirubin 0.5 MG/DL Sodium Level 137 MEQ/L Potassium Level 5.4 MEQ/L Chloride Level 99 MEQ/L Carbon Dioxide Level 34.1 MEQ/L Anion Gap 4 MEQ/L Estimat Glomerular Filtration Rate 59 ML/MIN Lactic Acid Level 0.9 mmol/L Total Creatine Kinase 73 U/L Troponin I LESS THAN 0.02 NG/ML B-Type Natriuretic Peptide 313 PG/ML Urine Color LIGHT-YELLOW Urine Turbidity CLEAR Urine pH 5.5 Urine Specific [place] 1.013 Urine Protein TRACE mg/dL Urine Glucose (UA) NEG mg/dL Urine Ketones NEG mg/dL Urine Occult Blood NEG Urine Nitrite NEG Urine Bilirubin NEG Urine Urobilinogen LESS THAN 2.0 MG/DL Urine Leukocyte Esterase NEG Urine RBC 1 /hpf Urine Squamous Epithelial Cells 2 /hpf Microscopic Urinalysis Comment CATH-CULT NOT IND MDM Medical Decision Making Medical Screen Exam Complete: Yes Emergency Medical Condition: Yes Medical Record Reviewed: Yes Interpretation(s) EKG reveals sinus tachycardia with a heart rate of 106. Inverted T waves noted in lead III, aVF, nonspecific ST depressions noted. Last Impressions Chest X-Ray 11/09/17 0975 Signed Impressions: CONCLUSION: Patchy basilar airspace disease. Differential Diagnosis Differential diagnosis includes pneumonia, bronchitis, COPD exacerbation, congestive heart failure, pulmonary edema, pleural effusion, CPAP malfunction, hypoxia, pulmonary embolism. Narrative Course IV was established, labs are drawn and sent, and the patient was placed on cardiac telemetry monitoring and continuous pulse oximetry monitoring. EKG was ordered and interpreted. Chest x-ray was obtained. The patient was administered duo nebs 2. Chest x-ray reveals patchy bibasilar airspace disease. BNP is elevated at 313. The patient is afebrile, I believe her dyspnea is more related to volume overload and congestive heart failure than COPD or pneumonia. Patient's white count is unremarkable and she is afebrile. The patient's oxygen saturation on O2 via nasal cannula at 3-4 L was in the 70s and low 80. Her baseline oxygen is 3-4 L at the detention with normal oxygenation levels. The patient's CPAP is broken at the detention per her report. The patient continued to have some mild dyspnea with a respiratory rate of 22-24 with diminished breath sounds in the bases bilateral, O2 saturation was 79% when evaluated at 11:30 AM on 4 L, therefore, the patient was placed on BiPAP. The patient will be admitted. Critical Care Narrative Aggregate critical care time was 35 minutes. Time to perform other separately billable procedures was not included in the critical care time. My time did not include minutes spent treating any other patients simultaneously or on activities that did not directly contribute to the patient's treatment. The services I provided to this patient were to treat and/or prevent clinically significant deterioration that could result in: Anoxia, hypoxia, arrhythmia, . I provided critical care services requiring my management, as noted below: Chart data review, documentation time, medication orders and management, vital sign assessments/reviewing monitor data, ordering and reviewing lab tests, ordering and interpreting/reviewing x-rays and diagnostic studies, care of the patient and discussion of the patient with the admitting physicians. Physician Communication Physician Communication The on-call medical service was paged for admission. Diagnosis Primary Impression: CHF exacerbation Qualified Codes: I50.9 - Heart failure, unspecified Additional Impressions: Dyspnea Qualified Codes: R06.00 - Dyspnea, unspecified Hypoxia Admitting Information Admitting Physician Requests: Admit Condition: Stable Kurtis Cox MD Nov 09, 2017 09:43
[2017-11-09] MEDS ORDERED: SODIUM CHLORIDE 0.9% FLUSH 10 ML FLUSH IVF PRN (09:45)
--- NOTE | 2017-11-09 10:04 | RADRPT ---
EXAM DATE: 11/09/2017 9:58 AM EDT AGE/SEX: 66 years / Female INDICATIONS: Short of breath CLINICAL DATA: This is the patient's initial encounter. Patient reports that signs and symptoms have been present for 2 days and indicates a pain score of 0/10. MEDICAL/SURGICAL HISTORY: . Hypertension. Cardiovascular disease. Chronic obstructive pulmonary disease. Diabetes . Tubal ligation. Hysterectomy. COMPARISON: [facility] [place], CHEST SINGLE AP, 08/14/2017. . FINDINGS: There is cardiomegaly. Left mid lung scarring versus atelectasis. There is patchy basilar airspace di sease identified. No effusions. Osseous structures are intact. CONCLUSION: Patchy basilar airspace disease. Electronically signed by: Tu White MD 11/09/2017 10:02 AM EDT
[2017-11-09] MEDS: RESP: ALBUTEROL 2.5 MG/IPRATROPIUM 0.5 MG NEB (SCH) INH ×4 (10:11→20:51)
[2017-11-09 10:12] LABS: AUTOMATED NEUTROPHIL # 9.1 TH/MM3 (1.8-7.7); BASOPHIL % 0.3 % (0.0-2.0); EOSINOPHIL % 0.1 % (0.0-4.0); HEMATOCRIT 36.9 % (35.0-46.0); HEMOGLOBIN 10.8 GM/DL (11.6-15.3); LYMPH % 8.5 % (9.0-44.0); LYMPHOCYTE # 0.9 TH/MM3 (1.0-4.8); MEAN CELL VOLUME 76.7 FL (80.0-100.0); MEAN CORPUSCULAR HEMOGLOBIN 22.4 PG (27.0-34.0); MEAN PLATELET VOLUME 8.6 FL (7.0-11.0); MONO % 7.4 % (0.0-8.0); MONOCYTE # 0.8 TH/MM3 (0-0.9); NEUT % 83.7 % (16.0-70.0); PLATELET COUNT 277 TH/MM3 (150-450); RED BLOOD COUNT 4.81 MIL/MM3 (4.00-5.30); RED CELL DISTRIBUTION WIDTH 17.8 % (11.6-17.2); WHITE BLOOD COUNT 10.9 TH/MM3 (4.0-11.0)
[2017-11-09 10:14] LABS: MEAN CORPUSCULAR HGB CONC 29.2 % (32.0-36.0)
[2017-11-09 10:30] LABS: ALT (GPT) 22 U/L (10-53)
[2017-11-09 10:34] LABS: ALBUMIN 3.2 GM/DL (3.4-5.0); ALKALINE PHOSPHATASE 105 U/L (45-117); AST (GOT) 26 U/L (15-37); BICARBONATE 34.1 MEQ/L (21.0-32.0); BLOOD UREA NITROGEN 28 MG/DL (7-18); CALCIUM 8.6 MG/DL (8.5-10.1); CHLORIDE 99 MEQ/L (98-107); CREATININE 1.12 MG/DL (0.50-1.00); GLOMERULAR FILTRATION RATE 59 ML/MIN (>89); GLUCOSE,RANDOM 225 MG/DL (74-106); MAGNESIUM 2.7 MG/DL (1.5-2.5); SODIUM (NA) 137 MEQ/L (136-145); TOTAL BILIRUBIN ADULT 0.5 MG/DL (0.2-1.0); TOTAL PROTEIN 7.9 GM/DL (6.4-8.2); TROPONIN I LESS THAN 0.02 NG/ML (0.02-0.05)
[2017-11-09] MEDS ORDERED: FOLI800T PO (10:37)
[2017-11-09] MEDS ORDERED: SYMB160A INH (10:37)
[2017-11-09] MEDS ORDERED: SITA1TAB2 PO (10:37)
[2017-11-09] MEDS ORDERED: ENEMENE5 PR (10:37)
[2017-11-09] MEDS ORDERED: LISI-519 PO (10:37)
[2017-11-09] MEDS ORDERED: NYST15T TOPICAL (10:37)
[2017-11-09] MEDS ORDERED: ARTI99.0 EACH EYE (10:37)
[2017-11-09] MEDS ORDERED: CYCL10TA PO (10:37)
[2017-11-09] MEDS ORDERED: ZOFR4TAB PO (10:37)
[2017-11-09] MEDS ORDERED: ASCO500T PO (10:37)
[2017-11-09] MEDS ORDERED: PROM1SUP7 RECTAL (10:37)
[2017-11-09] MEDS ORDERED: ISOS30TA3 PO (10:37)
[2017-11-09] MEDS ORDERED: CEROTAB PO (10:37)
[2017-11-09] MEDS ORDERED: GUAI600T11 PO (10:37)
[2017-11-09] MEDS ORDERED: ARTISOL3 EACH EYE (10:37)
[2017-11-09] MEDS ORDERED: PROM25TA10 PO (10:37)
[2017-11-09] MEDS ORDERED: CLAR10TA7 PO (10:37)
[2017-11-09] MEDS ORDERED: MORPHINE SULFATE 4 MG/ML INJ IV PUSH ONE (10:45)
[2017-11-09] MEDS ORDERED: ONDANSETRON ODT 4 MG TAB PO ONE (10:45)
[2017-11-09 11:13] LABS: BILIRUBIN, URINE NEG (NEG); BLOOD, URINE NEG (NEG); GLUCOSE,URINE NEG (NEG); KETONE, URINE NEG (NEG); NITRITE,URINE NEG (NEG); PH, URINE 5.5 (5.0-8.5); SQUAMOUS EPITHELIAL CELL URINE 2 /hpf (0-5); URINE COLOR LIGHT-YELLOW (YELLW/STRAW); URINE LEUKOCYTE ESTERASE NEG (NEG)
[2017-11-09] MEDS ORDERED: FUROSEMIDE 40 MG/4 ML VIAL IV PUSH ONE (11:30)
--- NOTE | 2017-11-09 11:45 | HHI.HP ---
HPI Service Family Medicine Primary Care Physician No Primary Care Physician Admission Diagnosis Diagnoses: International Travel<30 Days: No Contact w/Intl Traveler<30days: No Known Affected Area: No History of Present Illness Patient is a 66 y/o F w/hx of COPD (intubated x1), CHF, CAD (on plavix) and sleep apnea presenting w/SOB and hypoxia. Came via [facility] from [facility]. Sister and sister's are at bedside and assist in answering questions. Patient falls asleep while answering questions. Sister states that recently, CPAP machine has not been working and that patient had been complaining about it. Last night, machine was malfunctioning again, and patient awakened in the middle of the night w/SOB. Found to have hypoxia w/ PO2 in the 70s-80s in the ED. Is normally dependent on 3L NC O2, but even w/4L in the ED, she continued to desaturate to the mid to low 80s. BIPAP was started in the ED and PO2 increased to >91%. Patient states that she feels better now, felt like she couldn't breathe before. Endorses pain in the center of her chest that is non-radiating and worse w/laying flat. Has a chronic cough that is non- productive. No recent flu-like symptoms, abdominal pain, or dysuria. Feels better now, felt like she couldn't breath before. Pain the in the center of the chest. Feels better with sitting up in bed. Feels worse when laying flat. Per hospital records ,this appears to be chronic. . Sister states she seems more sleepy. Falls asleep during exam. No new cough, non-productive. States CPAP settings at her facility are PEEP 3. Was intubated on last hospitalization in July of this year for respiratory failure. Was also treated for HCAP and COPD exacerbation. Has had multiple hospitalizations in the past for chest pain. Recent PE eval was negative. Review of Systems ROS Limitations: Altered Mental Status Constitutional: DENIES: Weight gain, Night Sweats Endocrine: DENIES: Polydipsia Eyes: DENIES: Blurred vision, Diplopia Ears, nose, mouth, throat: DENIES: Hearing loss, Nasal discharge Respiratory: COMPLAINS OF: Apneas, DENIES: Sputum production Cardiovascular: DENIES: Palpitations, Lower Extremity Edema Gastrointestinal: DENIES: Abdominal pain, Diarrhea Genitourinary: DENIES: Urinary frequency, Urinary incontinence Musculoskeletal: DENIES: Joint pain, Muscle aches Integumentary: DENIES: Abnormal pigmentation Neurologic: DENIES: Headache, Paresthesias Past Family Social History Past Medical History Rheumatoid arthritis Anxiety Depression COPD-chronic O2 3 L (PFT 07/2016 notes severe restrictive disease) CHF CAD Diabetes GERD Glaucoma Hypertension [place] Sleep apnea Obesity Hx of MRSA positive wound (R Leg) Diverticulosis Chronic bilateral leg pain Past Surgical History Cataract surgery Iliac stent right Partial hysterectomy section Cyst removal breast right Allergies: Coded Allergies: *MDRO Multi-Drug Resistant Organism (Verified Adverse Reaction, Unknown, MRSA, 11/09/17) MRSA PCR positive - 06/28/2015 & 06/03/16 Family History Mom: DM Dad: DM, HTN Social History Lives at [facility] Smoking hx of 40 pack years, quit 7 years ago No other drug/ETOH use Physical Exam Vital Signs Vital Signs Date Time Temp Pulse Resp B/P (MAP) Pulse Ox O2 Delivery O2 Flow Rate FiO2 11/09/17 10:00 93 Nasal Cannula 4.00 11/09/17 09:45 90 Nasal Cannula 4.00 11/09/17 09:45 90 Nasal Cannula 4.00 11/09/17 09:30 98.5 107 22 128/74 (92) 86 Physical Exam GENERAL: This is a morbidly obese -[place] female appearing intermittently somnolent. No use of accessory or intercostal muscles. SKIN: Cool and dry. One stage 2 sacral ulcer (3 cm x1.5 cm) appearing pink and clean. 2 sites of superficial skin desquamation located on the right and left buttock. No bleeding or drainage noted. Right lower leg muscle atrophy noted. There is an area running along almost the entire bottom half of the randolph where a healing ulcer is noted. Site appears clean and pink. Right foot appears small , toe deformities noted. HEAD: Atraumatic. Normocephalic. EYES: Extraocular motions intact. No scleral icterus. No injection or drainage. Conjunctiva appear irritated. ENT: Nose without bleeding, purulent drainage or septal hematoma. Throat without erythema, tonsillar hypertrophy or exudate. Uvula midline. Airway patent. Mucous membranes dry. NECK: Trachea midline. No JVD or lymphadenopathy. CARDIOVASCULAR: Distant due to body habitus. RESPIRATORY: No wheezes, rales, or rhonchi auscultated. Difficult due to body habitus. GASTROINTESTINAL: Abdomen soft, non-tender, nondistended. MUSCULOSKELETAL: Extremities without clubbing, cyanosis, or edema. Right leg. NEUROLOGICAL: Awake and alert. Cranial nerves II through XII intact. Motor and sensory grossly within normal limits. Five out of 5 muscle strength in all muscle groups. Normal speech. Laboratory Laboratory Tests Test 11/09/17 09:52 11/09/17 11:05 White Blood Count 10.9 Red Blood Count 4.81 Hemoglobin 10.8 Hematocrit 36.9 Mean Corpuscular Volume 76.7 Mean Corpuscular Hemoglobin 22.4 Mean Corpuscular Hemoglobin Concent 29.2 Red Cell Distribution Width 17.8 Platelet Count 277 Mean Platelet Volume 8.6 Neutrophils (%) (Auto) 83.7 Lymphocytes (%) (Auto) 8.5 Monocytes (%) (Auto) 7.4 Eosinophils (%) (Auto) 0.1 Basophils (%) (Auto) 0.3 Neutrophils # (Auto) 9.1 Lymphocytes # (Auto) 0.9 Monocytes # (Auto) 0.8 Eosinophils # (Auto) 0.0 Basophils # (Auto) 0.0 CBC Comment DIFF FINAL Differential Comment Blood Urea Nitrogen 28 Creatinine 1.12 Random Glucose 225 Total Protein 7.9 Albumin 3.2 Calcium Level 8.6 Magnesium Level 2.7 Alkaline Phosphatase 105 Aspartate Amino Transf (AST/SGOT) 26 Alanine Aminotransferase (ALT/SGPT) 22 Total Bilirubin 0.5 Sodium Level 137 Potassium Level 5.4 Chloride Level 99 Carbon Dioxide Level 34.1 Anion Gap 4 Estimat Glomerular Filtration Rate 59 Lactic Acid Level 0.9 Total Creatine Kinase 73 Troponin I LESS THAN 0.02 B-Type Natriuretic Peptide 313 Date/Time Source Procedure Growth Status 11/09/17 09:57 Blood Peripheral Aerobic Blood Culture Pending Received 11/09/17 09:57 Blood Peripheral Anaerobic Blood Culture Pending Received Result Diagram: 11/09/1795111/09/17951 Imaging Last Impressions Chest X-Ray 11/09/17 0938 Signed Impressions: CONCLUSION: Patchy basilar airspace disease. Course PER ED note: "IV was established, labs are drawn and sent, and the patient was placed on cardiac telemetry monitoring and continuous pulse oximetry monitoring. EKG was ordered and interpreted. Chest x-ray was obtained. The patient was administered duo nebs 2. Chest x-ray reveals patchy bibasilar airspace disease. BNP is elevated at 313. The patient is afebrile, I believe her dyspnea is more related to volume overload and congestive heart failure than COPD or pneumonia. Patient's white count is unremarkable and she is afebrile. The patient's oxygen saturation on O2 via nasal cannula at 3-4 L was in the 70s and low 80. Her baseline oxygen is 3-4 L at the snf with normal oxygenation levels. The patient's CPAP is broken at the snf per her report. The patient continued to have some mild dyspnea with a respiratory rate of 22-24 with diminished breath sounds in the bases bilateral, O2 saturation was 79% when evaluated at 11:30 AM on 4 L, therefore, the patient was placed on BiPAP. The patient will be admitted." Caprini VTE Risk Assessment Caprini VTE Risk Assessment: Mod/High Risk (score >= 2) Assessment and Plan Assessment and Plan 66 y/o F w/hx of respiratory failure requiring intubation, COPD, CHF, and morbid obesity admitted for COPD exacerbation. Presented w/hypoxia requiring BiPaP, O2 being titrated by Respiratory team. BNP is elevated but <400. Has had dry cough, lung exam is not significant for crackles or wheezing. Will avoid IVF at this time, perform ACS r/o, order D-dimer to r/o PE. Patient appears to have CKD, will try to avoid nephrotoxic agents +/- contrast at this time. Once patient is stable off Bipap, will require CPAP nightly. Code Status FULL Discussed Condition With Dr. Partida Problem List: (1) COPD with exacerbation ICD Codes: J44.1 - Chronic obstructive pulmonary disease with (acute) exacerbation Status: Resolved Plan: Occurred suddenly BNP below 400, r/o CHF No WBC count or signs clinical signs of infxn at this time. AP CXR shows patchy infiltrates Hx of morbid obesity, advanced age, prolonged immobilization AMS on physical exam Patient is high-risk for intubation, matthew given hx and risk factors Diff: environmental trigger/allergies v PNA v PE v [place] VBG D-dimer ACS r/o w/EKG and cardiac enzymes Q6H Cardiac tele Con't pulse ox, titrate O2 88-92% Symbicort BID Duonebs Q6H scheduled, Albuterol Q2H PRN CPAP at night BIPAP followed by intubation and CC consult if respiratory status worsens or continued acidosis despite tx. Consider adding abx to treat HCAP pneumonia since patient arrived from a facility CXR PA and LAT tomorrow to further assess Received IV Solumedrol 125 mg x1 in the ED. Schedule solumedrol 40 mg BID until pt is able to take PO prednisone (2) Acute renal failure ICD Codes: N17.9 - Acute kidney failure, unspecified Status: Chronic Plan: BUN/Cr 28/1.12. Baseline Cr 0.6-0.9. GFR 59, baseline 90-100. U/A wnl Likely prerenal due to dehydration Recheck RFTs in the AM. Consider adding fluids/fluid bolus Avoid nephrotoxic agents (ASA, lovenox, etc) (3) Hyperkalemia ICD Codes: E87.5 - Hyperkalemia Status: Acute Plan: Slightly elevated at 5.4 on admission Should improve w/duoneb treatments BMP in the AM (4) CHF (congestive heart failure) ICD Codes: I50.9 - CHF (congestive heart failure) Status: Chronic Plan: Con't home Lasix Lisinopril, isosorbide dinitrate held due to CYNTHIA and low BP on admission (5) Sacral decubitus ulcer, stage II ICD Codes: L89.152 - Pressure ulcer of sacral region, stage 2 Plan: Pressure ulcer prevention Wound ostomy nurse consulted for recs (6) Leg wound, right ICD Codes: S81.801A - Leg wound, right Status: Chronic Plan: Hx of MRSA positive infxn Initial cause of ulcer unknown, suspect neuropathy 2/2 hx of DM that is poorly controlled v other peripheral neuropathy Order contact precautions Wound ostomy consulted, appreciate recs for wound care (7) Sleep apnea ICD Codes: G47.30 - Sleep apnea, unspecified Status: Chronic Plan: CIPAP at night (8) Diabetes mellitus ICD Codes: E11.9 - Type 2 diabetes mellitus without complications Status: Chronic Plan: Home: Novolog SS and lantus 10 units, sitagliptin 100 mg daily Low dose SSI (9) Chronic leg pain ICD Codes: M79.606 - Pain in leg, unspecified; G89.29 - Other chronic pain Plan: Home med oxycodone 5 mg and Gabapentin held to prevent further drowsiness and respiratory compromise Tylenol and Percocet PRN for pain (10) Coronary artery disease ICD Codes: I25.10 - Atherosclerotic heart disease of [place] coronary artery without angina pectoris Status: Chronic Plan: Con't home plavix and atorvastatin Hold ASA (11) Anxiety ICD Codes: F41.9 - Anxiety disorder, unspecified Plan: Con't home Ativan TID PRN (12) Depression ICD Codes: F32.9 - Major depressive disorder, single episode, unspecified Status: Chronic Plan: con't home zoloft daily (13) Iron deficiency anemia ICD Codes: D50.9 - Iron deficiency anemia, unspecified Plan: Con't ferrous sulfate Laxatives and stool softeners PRN (14) FEN Plan: Fluids: none for now, careful to avoid fluid overload Electrolytes: none Nutrition: Reg/diabetic diet DVT prophy: Heparin GI prophy: Pepcid Physician Certification 2 Midnight Certification Type: Admission for Inpatient Services Order for Inpatient Services The services are ordered in accordance with Medicare regulations or non- Medicare payer requirements, as applicable. In the case of services not specified as inpatient-only, they are appropriately provided as inpatient services in accordance with the 2-midnight benchmark. Estimated LOS (days): 2 2 days is the estimated time the patient will need to remain in the hospital, assuming treatment plan goals are met and no additional complications. Post-Hospital Plan: Not yet determined Problem Qualifiers (1) Acute renal failure: Qualified Codes: N17.9 - Acute kidney failure, unspecified (2) CHF (congestive heart failure): Qualified Codes: I50.9 - Heart failure, unspecified (3) Leg wound, right: Qualified Codes: S81.801A - Unspecified open wound, right lower leg, initial encounter (4) Sleep apnea: Qualified Codes: G47.30 - Sleep apnea, unspecified (5) Diabetes mellitus: Qualified Codes: E11.8 - Type 2 diabetes mellitus with unspecified complications (6) Chronic leg pain: Qualified Codes: M79.604 - Pain in right leg; M79.605 - Pain in left leg; G89.29 - Other chronic pain (7) Coronary artery disease: (8) Depression: Qualified Codes: F32.9 - Major depressive disorder, single episode, unspecified Ksenia Brunner MD R1 Nov 09, 2017 11:45
[2017-11-09] MEDS ORDERED: SODIUM CHLORIDE 0.9% FLUSH 10 ML FLUSH IV FLUSH PRN (12:15)
[2017-11-09] MEDS ORDERED: RESP: ALBUTEROL 2.5 MG/3 ML NEB (PRN) INH (12:15)
[2017-11-09] MEDS ORDERED: methylPREDNISolone SOD SUCC 125 MG/2 ML VIAL IV PUSH ONE (12:45)
[2017-11-09] MEDS ORDERED: ONDANSETRON ODT 4 MG TAB PO PRN (13:00)
[2017-11-09] MEDS ORDERED: LACTULOSE SYRUP 20 GM/30 ML CUP PO PRN (13:00)
[2017-11-09] MEDS ORDERED: MAGNESIUM HYDROXIDE SUSP 30 ML CUP PO PRN (13:00)
[2017-11-09] MEDS ORDERED: LORazepam 0.5 MG TAB PO PRN (13:00)
[2017-11-09] MEDS ORDERED: oxyCODONE/ACETAMINOPHEN 10 MG/325 MG TAB PO PRN (13:00)
[2017-11-09] MEDS ORDERED: SENNOSIDES 8.6 MG TAB PO PRN (13:00)
[2017-11-09] MEDS ORDERED: ACETAMINOPHEN 325 MG TAB PO PRN (13:00)
[2017-11-09] MEDS ORDERED: DEXTROSE 50% IN WATER 50 ML VIAL(D50) IV PUSH PRN (13:45)
[2017-11-09] MEDS ORDERED: GLUCAGON 1 MG/ML VIAL OTHER PRN (13:45)
[2017-11-09] MEDS: HEPARIN SODIUM - SQ 10,000 UNITS/ML VIAL SQ SCH (14:21)
[2017-11-09 17:03] LABS: TROPONIN I LESS THAN 0.02 NG/ML (0.02-0.05)
[2017-11-09] MEDS: INSULIN ASPART SUPPLEMENTAL SCALE SQ SCH ×2 (18:19→22:19)
[2017-11-09] MEDS ORDERED: CHLORHEXIDINE GLUCONATE 2 % 1 PACK (2 CLOTHS)(extra cloths) TOPICAL PRN (20:45)
[2017-11-09] MEDS: SODIUM CHLORIDE 0.9% FLUSH 10 ML FLUSH IV FLUSH SCH (21:00)
[2017-11-09] MEDS: FAMOTIDINE 20 MG TAB PO SCH (21:00)
[2017-11-09] MEDS: ARTIFICIAL TEAR OPTH EACH EYE SCH (21:00)
[2017-11-09] MEDS: BUDESONIDE-FORMOTEROL 160/4.5 MCG INHALER INH SCH (21:00)
[2017-11-09] MEDS ORDERED: GABAPENTIN 300 MG CAP PO SCH (21:00)
[2017-11-09] MEDS: NYSTATIN 100,000 UNIT/GM CREAM 15 GM TOPICAL SCH (21:00)
[2017-11-09] MEDS: ATORVASTATIN 40 MG TAB PO SCH (21:00)
[2017-11-09] MEDS: FERROUS SULFATE 325 MG (65 MG ELEMENTAL IRON) TAB PO SCH (21:00)
--- NOTE | 2017-11-09 22:02 | HHI.PR ---
Addendum to Inpatient Note Addendum Reason: Additional Documentation Additional Information Reviewed patient's ABG on BiPAP. Continuing to have respiratory acidosis, though improved slightly from previous blood gas. Given persistent hypoxia and acidosis, there is a chance patient may end up needing to be intubated. Discussed case with Folding Machine Tender Dr. Goel who agreed to see patient for consult. Eddie Partida MD R2 Nov 09, 2017 22:02
--- NOTE | 2017-11-09 22:38 | PD.CONS ---
HPI Service Critical Care Medicine Consult Requested By Primary Care Physician No Primary Care Physician History of Present Illness 66-year-old morbidly obese female with history of COPD on 3 L nasal cannula home O2, obesity hypoventilation syndrome, CHF, CAD (on plavix) and sleep apnea admitted with shortness of breath and hypoxia. Per chart review the patient's sister states that recently, CPAP machine has not been working and that patient had been complaining about it. Last night, machine was malfunctioning again, and patient awakened in the middle of the night with SOB. She was found to be hypoxemic with saturation in 70s-80s. He was initially placed on BiPAP with no improvement and worsening hypercarbic respiratory acidosis. Patient was intubated for acute hypercapnic respiratory failure in the ICU. Review of Systems ROS Unobtainable, patient in respiratory distress on facemask BiPAP Past Family Social History Allergies: Coded Allergies: *MDRO Multi-Drug Resistant Organism (Verified Adverse Reaction, Unknown, MRSA, 11/09/17) MRSA PCR positive - 06/28/2015 & 06/03/16 Past Medical History Rheumatoid arthritis Anxiety Depression COPD-chronic O2 3 L (PFT 07/2016 notes severe restrictive disease) CHF CAD Diabetes GERD Glaucoma Hypertension DC Sleep apnea Obesity Hx of MRSA positive wound (R Leg) Diverticulosis Chronic bilateral leg pain Past Surgical History Cataract surgery Iliac stent right Partial hysterectomy section Cyst removal breast right Reported Medications Reported Meds & Active Scripts Active Novolog Inj (Insulin Aspart) 1,000 Unit/10 Ml Vial 2-12 Units SQ ACHS Max dose at bedtime (8) units; sugars less than 70,(0) units; sugars 150-199,(2) units; sugars 200-249,(4) units; sugars 250-299,(7) units; sugars 300-349,(10) units; sugars greater than 349,(12)units Reported Zofran (Ondansetron HCl) 4 Mg Tab 4 Mg PO Q6HR PRN Januvia (Sitagliptin Phosphate) 100 Mg Tab 100 Mg PO DAILY Phenergan (Promethazine HCl) 25 Mg Tablet 25 Mg PO Q6H PRN Phenergan Supp (Promethazine HCl) 25 Mg Supp 25 Mg RECTAL Q6H PRN Nystatin Topical (Nystatin) 100,000 unit/gm Cream 1 Applic TOPICAL BID Apply to groin & abdominal folds every day and evening shift Natural Balance Tears Opth Drops (Artificial Tear Solution Opth Drops) 0.1-0.3% Soln 1 Drop EACH EYE BID Lisinopril 5 Mg Tab 5 Mg PO DAILY Isosorbide Mononitrate ER (Isosorbide Mononitrate) 30 Mg Refugio 30 Mg PO DAILY Mucus Relief ER (Guaifenesin) 600 Mg Tab 600 Mg PO Q12HR PRN 14 Days Flexeril (Cyclobenzaprine HCl) 10 Mg Tab 10 Mg PO Q8HR PRN When present supply of Cyclobenzaprine is completed, please order Tizanidine 2mg q8h prn instead Claritin (Loratadine) 10 Mg Tablet 10 Mg PO DAILY Symbicort Inh (Budesonide/Formoterol Fumarate) 160-4.5 Mcg/Act Aero 2 Puff INH Q12HR Ascorbic Acid 500 Mg Tab 500 Mg PO BID Artificial Tears (Dextran 70/Hypromellose) 1 Each Droperette 2 Drop EACH EYE Q4HR PRN Folic Acid 0.8 Mg Tab 800 Mcg PO DAILY Cerovite Advanced Formula (Multiple Vitamins W/ Minerals) 18 Mg Iron-400 Mcg Tab 1 Tab PO DAILY Oxycodone (Oxycodone HCl) 5 Mg Tab 5 Mg PO Q4H PRN Gabapentin 300 Mg Cap 300 Mg PO BID Ativan (Lorazepam) 0.5 Mg Tab 0.5 Mg PO Q8H PRN Zantac (Ranitidine HCl) 150 Mg Tab 150 Mg PO BID Magnesium Oxide 400 Mg Tab 400 Mg PO DAILY Lantus Inj (Insulin Glargine) 1,000 Unit/10 Ml Vial 10 Units SQ HS Ferrousul (Ferrous Sulfate) 325 Mg (65 Mg Iron) Tab 325 Mg PO DAILY Tylenol (Acetaminophen) 325 Mg Tab 650 Mg PO Q4H PRN Zoloft (Sertraline HCl) 100 Mg Tab 100 Mg PO DAILY Furosemide 40 Mg Tab 40 Mg PO DAILY Potassium Chloride ER (Potassium Chloride) 10 Meq Cap 10 Meq PO DAILY Plavix (Clopidogrel Bisulfate) 75 Mg Tab 75 Mg PO DAILY Atorvastatin (Atorvastatin Calcium) 40 Mg Tab 40 Mg PO HS Aspirin 81 Mg Chew 81 Mg PO DAILY Duoneb (Ipratropium-Albuterol Neb) 0.5-2.5 Mg/3 Ml Neb 3 Ml NEB TID Active Ordered Medications Current Medications Medications (Trade) Dose Ordered Sig/Giovanna Route PRN Reason Start Time Stop Time Status Last Admin Dose Admin Sodium Chloride (NS Flush) 2 ml BID IV FLUSH 11/09/17 21:00 11/09/17 21:00 Sodium Chloride (NS Flush) 2 ml UNSCH PRN IV FLUSH FLUSH AFTER USING IV ACCESS 11/09/17 12:15 Albuterol/ Ipratropium (Duoneb Neb) 1 ampule Q4HR NEB INH 11/09/17 16:00 11/09/17 20:51 Albuterol Sulfate (Albuterol Neb) 2.5 mg Q2HR NEB PRN INH SHORTNESS OF BREATH 11/09/17 12:15 Budesonide/ Formoterol Fumarate (Symbicort 160-4.5 Mcg Inh) 2 puff Q12HR INH 11/09/17 21:00 Heparin Sodium (Porcine) (Heparin Inj) 5,000 units Q12H SQ 11/09/17 13:00 11/09/17 14:21 Insulin Aspart (NovoLOG SUPPLEMENTAL SCALE) 1 ACHS SLIDING SCALE SQ 11/09/17 17:00 11/09/17 22:19 Atorvastatin Calcium (Lipitor) 40 mg HS PO 11/09/17 21:00 Clopidogrel Bisulfate (Plavix) 75 mg DAILY PO 11/10/17 09:00 Furosemide (Lasix) 40 mg DAILY PO 11/10/17 09:00 Gabapentin (Neurontin) 300 mg BID PO 11/09/17 21:00 Future Hold Loratadine (Claritin) 10 mg DAILY PO 11/10/17 09:00 Lorazepam (Ativan) 0.5 mg Q8H PRN PO ANXIETY 11/09/17 13:00 Nystatin (Mycostatin Cream) 1 applic BID TOPICAL 11/09/17 21:00 Sertraline HCl (Zoloft) 100 mg DAILY PO 11/10/17 09:00 Non-Formulary Medication 1 drop BID EACH EYE 11/09/17 21:00 Ondansetron HCl (Zofran Odt) 4 mg Q6HR PRN PO NAUSEA OR VOMITING 11/09/17 13:00 Famotidine (Pepcid) 20 mg BID PO 11/09/17 21:00 Acetaminophen (Tylenol) 650 mg Q6H PRN PO PAIN SCALE 1 TO 5 11/09/17 13:00 Oxycodone/ Acetaminophen (Percocet 10-325 Mg) 1 tab Q6H PRN PO PAIN SCALE 6 TO 10 11/09/17 13:00 11/09/17 15:31 Magnesium Hydroxide (Milk Of Magnesia Liq) 30 ml Q12H PRN PO Mild constipation 11/09/17 13:00 Sennosides (Senokot) 17.2 mg Q12H PRN PO Moderate constipation 11/09/17 13:00 Lactulose (Lactulose Liq) 30 ml DAILY PRN PO SEVERE CONSITIPATION 11/09/17 13:00 Dextrose (D50w (Vial) Inj) 50 ml UNSCH PRN IV PUSH HYPOGLYCEMIA - SEE COMMENTS 11/09/17 13:45 Glucagon (Glucagon Inj) 1 mg UNSCH PRN OTHER HYPOGLYCEMIA-SEE COMMENTS 11/09/17 13:45 Ferrous Sulfate (Ferrous Sulfate) 325 mg BID PO 11/09/17 21:00 Miscellaneous Information ([facility] [place] Nursing Information) Patient in critical care unit? Ass... [id number] .XX 11/09/17 20:45 Chlorhexidine Gluconate (Chlorhexidine 2% Cloth) 3 pack DAILY@04 TOPICAL 11/10/17 04:00 11/14/17 04:01 Chlorhexidine Gluconate (Chlorhexidine 2% Cloth) 3 pack UNSCH PRN TOPICAL HYGIENIC CARE 11/09/17 20:45 11/14/17 20:38 Methylprednisolone Sodium Succinate (SoluMEDROL INJ) 40 mg Q12HR IV PUSH 11/10/17 09:00 Family History Mother: Diabetes mellitus and hypertension Father: Diabetes mellitus and hypertension Social History Lives at [facility] Smoking history of 40 pack years, quit 7 years ago No no documented history of alcohol or illicit drug abuse Physical Exam Vital Signs Vital Signs Date Time Temp Pulse Resp B/P (MAP) Pulse Ox O2 Delivery O2 Flow Rate FiO2 11/09/17 21:10 99 85 11/09/17 20:56 92 BiPAP 60 11/09/17 20:52 92 60 11/09/17 19:18 97.6 91 20 139/60 (86) 100 11/09/17 18:56 11/09/17 18:21 92 15 159/68 (98) 100 BiPAP 40 11/09/17 16:12 92 13 123/58 (79) 100 CPAP 40 11/09/17 12:00 96 40 11/09/17 10:00 93 Nasal Cannula 4.00 11/09/17 09:45 90 Nasal Cannula 4.00 11/09/17 09:45 90 Nasal Cannula 4.00 11/09/17 09:30 98.5 107 22 128/74 (92) 86 Physical Exam GENERAL: Morbidly obese female in respiratory distress on facemask BiPAP SKIN: Warm and dry. HEAD: Normocephalic. EYES: No scleral icterus. No injection or drainage. NECK: Supple, trachea midline. No JVD or lymphadenopathy. CARDIOVASCULAR: Regular rate and rhythm without murmurs, gallops, or rubs. RESPIRATORY: Breath sounds equal bilaterally. No accessory muscle use. GASTROINTESTINAL: Abdomen soft, non-tender, nondistended. MUSCULOSKELETAL: No cyanosis, or edema. BACK: Nontender without obvious deformity. NEURO EXAM: Intermittently opens eyes to voice, follows simple commands, oriented to person. No focal deficits Laboratory Laboratory Tests Test 11/09/17 09:32 11/09/17 09:52 11/09/17 11:05 11/09/17 14:39 D-Dimer Quantitative (PE/DVT) 0.61 White Blood Count 10.9 Red Blood Count 4.81 Hemoglobin 10.8 Hematocrit 36.9 Mean Corpuscular Volume 76.7 Mean Corpuscular Hemoglobin 22.4 Mean Corpuscular Hemoglobin Concent 29.2 Red Cell Distribution Width 17.8 Platelet Count 277 Mean Platelet Volume 8.6 Neutrophils (%) (Auto) 83.7 Lymphocytes (%) (Auto) 8.5 Monocytes (%) (Auto) 7.4 Eosinophils (%) (Auto) 0.1 Basophils (%) (Auto) 0.3 Neutrophils # (Auto) 9.1 Lymphocytes # (Auto) 0.9 Monocytes # (Auto) 0.8 Eosinophils # (Auto) 0.0 Basophils # (Auto) 0.0 CBC Comment DIFF FINAL Differential Comment Blood Urea Nitrogen 28 Creatinine 1.12 Random Glucose 225 Total Protein 7.9 Albumin 3.2 Calcium Level 8.6 Magnesium Level 2.7 Alkaline Phosphatase 105 Aspartate Amino Transf (AST/SGOT) 26 Alanine Aminotransferase (ALT/SGPT) 22 Total Bilirubin 0.5 Sodium Level 137 Potassium Level 5.4 Chloride Level 99 Carbon Dioxide Level 34.1 Anion Gap 4 Estimat Glomerular Filtration Rate 59 Lactic Acid Level 0.9 Total Creatine Kinase 73 Troponin I LESS THAN 0.02 B-Type Natriuretic Peptide 313 Urine Color LIGHT-YELLOW Urine Turbidity CLEAR Urine pH 5.5 Urine Specific [place] 1.013 Urine Protein TRACE Urine Glucose (UA) NEG Urine Ketones NEG Urine Occult Blood NEG Urine Nitrite NEG Urine Bilirubin NEG Urine Urobilinogen LESS THAN 2.0 Urine Leukocyte Esterase NEG Urine RBC 1 Urine Squamous Epithelial Cells 2 Microscopic Urinalysis Comment CATH-CULT NOT IND Blood Gas Puncture Site LINE Blood Gas Patient Temperature 98.6 Venous Blood pH 7.13 Venous Blood Partial Pressure CO2 116 Venous Blood Partial Pressure O2 22 Venous Blood HCO3 37 Venous Blood Oxygen Saturation 24 Venous Blood Oxygen Content 3.7 Venous Blood Base Excess 7.9 Oxygen Delivery Device BIPAP Blood Gas Ventilator Setting 12/+5/7PS Blood Gas Inspired Oxygen 40 Test 11/09/17 16:20 11/09/17 19:10 11/09/17 21:30 Total Creatine Kinase 51 Troponin I LESS THAN 0.02 Nasal Screen MRSA (PCR) MRSA DETECTED Blood Gas Puncture Site RT RADIAL Blood Gas Patient Temperature 98.6 Blood Gas HCO3 34 Blood Gas Base Excess 5.4 Blood Gas Oxygen Saturation 90 Arterial Blood pH 7.16 Arterial Blood Partial Pressure CO2 99 Arterial Blood Partial Pressure O2 75 Arterial Blood Oxygen Content 14.3 Arterial Blood Carboxyhemoglobin 1.2 Arterial Blood Methemoglobin 1.5 Blood Gas Hemoglobin 11.3 Oxygen Delivery Device BIPAP Blood Gas Ventilator Setting [id number]/[id number] Blood Gas Inspired Oxygen 85 Date/Time Source Procedure Growth Status 11/09/17 09:57 Blood Peripheral Aerobic Blood Culture Pending Received 11/09/17 09:57 Blood Peripheral Anaerobic Blood Culture Pending Received Result Diagram: 11/09/1752 11/09/17 0952 Imaging Last 24 hours Impressions Chest X-Ray 11/09/17 0938 Signed Impressions: CONCLUSION: Patchy basilar airspace disease. Assessment and Plan Assessment and Plan Respiratory failure -OHS/ARSEN -Mechanical ventilation -Vent bundle -SBT daily COPD -DuoNeb scheduled and as needed -Budesonide/ Formoterol Fumarate -No steroids at this time / good ventilation CHF -Lasix CAD -Atorvastatin -Plavix Anxiety -Sertraline -Lorazepam Diabetes mellitus -Insulin sliding scale Anemia -Iron supplement DVT GI prophylaxis -Riky's and SCDs -Subcu heparin -Pepcid Critical Care: The total critical care time was 35 minutes. Time to perform other separately billable procedures was not included in the critical care time. Yousuf Goel MD Nov 09, 2017 22:38
[2017-11-09 23:22] LABS: TROPONIN I 0.03 NG/ML (0.02-0.05)
[2017-11-09] MEDS ORDERED: ETOMIDATE 40 MG/20 ML VIAL ONE (23:31)
[2017-11-09] MEDS ORDERED: SUCCINYLCHOLINE CHLORIDE 200 MG/10 ML VIAL ONE (23:32)
[2017-11-10] VITALS (17 sets, daily range): BP systolic 95–150; BP diastolic 52–68; PULSE 71–94; RESP 18–24; TEMP 97.3–98.5; O2SAT 98–100
--- NOTE | 2017-11-10 01:12 | RADRPT ---
EXAM DATE: 11/10/2017 12:44 AM EDT AGE/SEX: 66 years / Female INDICATIONS: Shortness of breath, intubation. CLINICAL DATA: This is the patient's subsequent encounter. Patient reports that signs and symptoms h ave been present for 2 days and indicates a pain score of Nonresponsive. MEDICAL/SURGICAL HISTORY: . Hypertension. Cardiovascular disease. Chronic obstructive pulmonar y disease. Diabetes . Tubal ligation. Hysterectomy. COMPARISON: [facility] [place], CHEST SINGLE AP, 11/09/2017. . FINDINGS: Single AP view of the chest. Endotracheal tube is in place with the tip at the teresita and directed to boo the right mainstem bronchus. This could be retracted several centimeters. Nasogastric tube is in place and the tip is below the [id number] of the radiograph. Mild patchy atelectasis at the left lung base. Persistent cardiac silhouette enlargement. No evidence of pleural effusion or pneumothorax . Prominent bilateral glenohumeral joint arthrosis. CONCLUSION: 1. Endotracheal tube tip at the teresita and could be retracted several centimeters. 2. Persistent moderate cardiac silhouette enlargement. 3. Mild left lung base atelectasis. Electronically signed by: Tommy Pryor MD 11/10/2017 1:11 AM EDT
[2017-11-10] MEDS: HEPARIN SODIUM - SQ 10,000 UNITS/ML VIAL SQ SCH ×2 (02:46→11:47)
[2017-11-10] MEDS: MIDAZOLAM 50 MG/50 ML INJ 50 ML IV PRN ×5 (02:47→20:25)
[2017-11-10] MEDS: RESP: ALBUTEROL 2.5 MG/IPRATROPIUM 0.5 MG NEB (SCH) INH ×7 (03:52→23:32)
[2017-11-10] MEDS: CHLORHEXIDINE GLUCONATE 2 % 1 PACK (2 CLOTHS)(taper/protocol) TOPICAL SCH (04:00)
--- NOTE | 2017-11-10 05:18 | PD.PROCEDR ---
Procedure Note Procedure Endotracheal Intubation A time-out was completed verifying correct patient, procedure, site, positioning , and special equipment if applicable. The patient was placed in a flat position. Sedation was obtained using Etomidate 20mg. The patient was easily ventilated using an ambu bag. The [employer]/ MAC 4 BLADE was used and inserted into the oropharynx at which time there was a Grade 1 view of the vocal cords. A 8-telugu endotracheal tube was inserted and visualized going through the vocal cords. The stylette was removed. Colorimetric change was visualized on the CO2 meter. Breath sounds were heard in both lung south equally. The endotracheal tube was placed at 23 cm, measured at the teeth. A chest x-ray was ordered to assess for pneumothorax and verify endotrachealtube placement. Estimated Blood Loss: 0 The patient tolerated the procedure well and there were no complications. Yousuf Goel MD Nov 10, 2017 5:18 am
[2017-11-10] MEDS: fentaNYL DRIP 250 ML IV PRN ×2 (07:45→18:28)
[2017-11-10] MEDS: INSULIN ASPART SUPPLEMENTAL SCALE SQ SCH ×5 (08:00→20:27)
[2017-11-10 08:37] LABS: AUTOMATED NEUTROPHIL # 5.5 TH/MM3 (1.8-7.7); BASOPHIL % 0.1 % (0.0-2.0); HEMATOCRIT 33.2 % (35.0-46.0); HEMOGLOBIN 9.8 GM/DL (11.6-15.3); LYMPH % 15.5 % (9.0-44.0); LYMPHOCYTE # 1.2 TH/MM3 (1.0-4.8); MEAN CELL VOLUME 76.2 FL (80.0-100.0); MEAN CORPUSCULAR HEMOGLOBIN 22.6 PG (27.0-34.0); MEAN PLATELET VOLUME 8.8 FL (7.0-11.0); MONO % 12.8 % (0.0-8.0); NEUT % 71.6 % (16.0-70.0); PLATELET COUNT 258 TH/MM3 (150-450); RED BLOOD COUNT 4.35 MIL/MM3 (4.00-5.30); RED CELL DISTRIBUTION WIDTH 18.1 % (11.6-17.2); WHITE BLOOD COUNT 7.7 TH/MM3 (4.0-11.0)
[2017-11-10 08:48] LABS: MEAN CORPUSCULAR HGB CONC 29.6 % (32.0-36.0)
[2017-11-10] MEDS: SODIUM CHLORIDE 0.9% FLUSH 10 ML FLUSH IV FLUSH SCH ×2 (09:00→20:26)
[2017-11-10] MEDS ORDERED: methylPREDNISolone SOD SUCC 40 MG/1 ML VIAL IV PUSH SCH (09:00)
[2017-11-10] MEDS: ARTIFICIAL TEAR OPTH EACH EYE SCH ×2 (09:00→20:26)
[2017-11-10] MEDS: BUDESONIDE-FORMOTEROL 160/4.5 MCG INHALER INH SCH ×2 (09:00→20:26)
[2017-11-10 09:12] LABS: BICARBONATE 26.9 MEQ/L (21.0-32.0); CALCIUM 8.5 MG/DL (8.5-10.1); CREATININE 1.3 MG/DL (0.50-1.00); MAGNESIUM 2.7 MG/DL (1.5-2.5)
[2017-11-10] MEDS: SERTRALINE HCL 100 MG TAB PO SCH (10:02)
[2017-11-10] MEDS: FUROSEMIDE 40 MG TAB PO SCH (10:02)
[2017-11-10] MEDS: FERROUS SULFATE 325 MG (65 MG ELEMENTAL IRON) TAB PO SCH ×2 (10:02→20:27)
[2017-11-10] MEDS: LORATADINE 10 MG TAB PO SCH (10:02)
[2017-11-10] MEDS: FAMOTIDINE 20 MG TAB PO SCH ×2 (10:02→20:27)
[2017-11-10] MEDS: CLOPIDOGREL 75 MG TAB PO SCH (10:02)
[2017-11-10] MEDS: CHLORHEXIDINE 0.12% (ORAL KIT) 15 ML CUP MT SCH ×2 (10:03→20:00)
[2017-11-10] MEDS: NYSTATIN 100,000 UNIT/GM CREAM 15 GM TOPICAL SCH ×2 (10:03→20:28)
--- NOTE | 2017-11-10 12:21 | HHI.FPPN ---
Subjective Remarks Patient was transferred to the ICU on continued BiPAP from the ED. VBG ordered showed hypercarbic respiratory acidosis. Follow-up ABG confirm the results. Because of this, patient was intubated for respiratory failure in the ICU. Patient is currently on sedation with midazolam, fentanyl. (Ksenia Brunner MD R1) Objective Vitals Vital Signs Date Time Temp Pulse Resp B/P (MAP) Pulse Ox O2 Delivery O2 Flow Rate FiO2 11/10/17 12:12 100 40 11/10/17 12:00 60 11/10/17 09:05 100 50 11/10/17 06:00 79 11/10/17 04:09 100 60 11/10/17 04:00 77 11/10/17 04:00 98.5 77 18 144/64 (90) 100 11/10/17 02:00 79 11/10/17 00:00 65 11/10/17 00:00 94 11/10/17 00:00 94 24 110/52 (71) 98 11/09/17 23:53 95 65 11/09/17 22:40 100 85 11/09/17 22:00 93 11/09/17 21:10 99 85 11/09/17 20:56 92 BiPAP 60 11/09/17 20:52 92 60 11/09/17 20:00 98.2 95 29 126/56 (79) 95 11/09/17 20:00 95 11/09/17 19:18 97.6 91 20 139/60 (86) 100 11/09/17 18:56 11/09/17 18:21 92 15 159/68 (98) 100 BiPAP 40 11/09/17 16:12 92 13 123/58 (79) 100 CPAP 40 I/O 11/09/17 11/09/17 11/09/17 11/10/17 11/10/17 11/10/17 06:59 14:59 22:59 06:59 14:59 22:59 Intake Total 206 ml Output Total 1100 ml Balance -894 ml Intake IV Total 206 ml Output Urine Total 1100 ml # Voids 1 # Bowel Movements 0 (Ksenia Brunner MD R1) Result Diagram: 11/10/17 0742 11/10/17 0742 Objective Remarks O. CONSTITUTIONAL/GEN: Morbidly obese woman sedated and on intubation. EYES: closed. ENT: Intubated LUNGS: Referred upper airway sounds. CARDIOVASCULAR: RR, heart sounds distant due to body habitus. GI/ABD: obese and protuberant. SKIN: color normal, no rashes noted. HEME/LYMPH: no bruising, petechia. MUSC: Right extremity shows deformity of the right toes, muscle atrophy and hyperpigmentation of the leg. Some hyperpigmentation seen at the ankle of the left foot. PSYCH/MENTAL STATUS: Alert and oriented x 3. (Ksenia Brunner MD R1) A/P Assessment and Plan 66 y/o F w/hx of respiratory failure requiring intubation, COPD, CHF, and morbid obesity admitted for COPD exacerbation. Intubated on 11/09 for respiratory failure. (Ksenia Brunner MD R1) Attending Attestation Patient seen and examined. Case reviewed and discussed with the resident team. Agree with plan of care as discussed with me and documented in the resident note. (Brandi Bush MD) Problem List: (1) Respiratory failure ICD Codes: J96.90 - Respiratory failure, unspecified, unspecified whether with hypoxia or hypercapnia Plan: Sedated on midazolam and fentanyl Intubated 11/10- Critical care consulted,appreciate recs. No solumedrol at this time. Attempting to wean off today (2) Acute renal failure ICD Codes: N17.9 - Acute kidney failure, unspecified Status: Chronic Plan: BUN/Cr 28/1.12. Baseline Cr 0.6-0.9. GFR 59, baseline 90-100. U/A wnl Likely prerenal due to dehydration Recheck RFTs in the AM. Consider adding fluids/fluid bolus Avoid nephrotoxic agents (ASA, lovenox, etc) (3) Hyperkalemia ICD Codes: E87.5 - Hyperkalemia Status: Acute Plan: Slightly elevated at 5.4 on admission Should improve w/duoneb treatments BMP in the AM (4) CHF (congestive heart failure) ICD Codes: I50.9 - CHF (congestive heart failure) Status: Chronic Plan: Con't home Lasix Lisinopril, isosorbide dinitrate held due to CYNTIHA and low BP on admission (5) Sacral decubitus ulcer, stage II ICD Codes: L89.152 - Pressure ulcer of sacral region, stage 2 Plan: Pressure ulcer prevention Wound ostomy nurse consulted for recs (6) Leg wound, right ICD Codes: S81.801A - Leg wound, right Status: Chronic Plan: Hx of MRSA positive infxn Initial cause of ulcer unknown, suspect neuropathy 2/2 hx of DM that is poorly controlled v other peripheral neuropathy Wound ostomy consulted, appreciate recs for wound care (7) COPD (chronic obstructive pulmonary disease) ICD Codes: J44.9 - COPD (chronic obstructive pulmonary disease) Status: Chronic Plan: Home: Duonebs TID, Symbicort 2 puffs BID Currently intubated Will resume duoneb/alb if needed after extubation (8) Sleep apnea ICD Codes: G47.30 - Sleep apnea, unspecified Status: Chronic Plan: CIPAP at night (9) Diabetes mellitus ICD Codes: E11.9 - Type 2 diabetes mellitus without complications Status: Chronic Plan: Home: Novolog SS and lantus 10 units, sitagliptin 100 mg daily Low dose SSI (10) Chronic leg pain ICD Codes: M79.606 - Pain in leg, unspecified; G89.29 - Other chronic pain Plan: Home med oxycodone 5 mg and Gabapentin held to prevent further drowsiness and respiratory compromise Tylenol and Percocet PRN for pain (11) Coronary artery disease ICD Codes: I25.10 - Atherosclerotic heart disease of [place] coronary artery without angina pectoris Status: Chronic Plan: Con't home plavix and atorvastatin Hold ASA (12) Anxiety ICD Codes: F41.9 - Anxiety disorder, unspecified Plan: Con't home Ativan TID PRN (13) Depression ICD Codes: F32.9 - Major depressive disorder, single episode, unspecified Status: Chronic Plan: con't home zoloft daily (14) Iron deficiency anemia ICD Codes: D50.9 - Iron deficiency anemia, unspecified Plan: Con't ferrous sulfate Laxatives and stool softeners PRN (15) FEN Plan: Fluids: none for now, careful to avoid fluid overload Electrolytes: none Nutrition: Reg/diabetic diet DVT prophy: Heparin GI prophy: Pepcid (Ksenia Brunner MD R1) Problem Qualifiers (1) Respiratory failure: Qualified Codes: J96.01 - Acute respiratory failure with hypoxia (2) Acute renal failure: Qualified Codes: N17.9 - Acute kidney failure, unspecified (3) CHF (congestive heart failure): Qualified Codes: I50.9 - Heart failure, unspecified (4) Leg wound, right: Qualified Codes: S81.801A - Unspecified open wound, right lower leg, initial encounter (5) COPD (chronic obstructive pulmonary disease): Qualified Codes: J44.9 - Chronic obstructive pulmonary disease, unspecified (6) Sleep apnea: Qualified Codes: G47.30 - Sleep apnea, unspecified (7) Diabetes mellitus: Qualified Codes: E11.8 - Type 2 diabetes mellitus with unspecified complications (8) Chronic leg pain: Qualified Codes: M79.604 - Pain in right leg; M79.605 - Pain in left leg; G89.29 - Other chronic pain (9) Coronary artery disease: (10) Depression: Qualified Codes: F32.9 - Major depressive disorder, single episode, unspecified Ksenia Brunner MD R1 Nov 10, 2017 12:21 Brandi Bush MD Nov 10, 2017 15:08
--- NOTE | 2017-11-10 14:49 | EKG ---
Date Performed: 11/09/2017 Time Performed: 09:41:56 PTAGE: 66 years EKG: SINUS TACHYCARDIA POSSIBLE LEFT ATRIAL ENLARGEMENT ST DEVIATION AND MODERATE T-WAVE ABNORMA LITY, CONSIDER ANTERIOR ISCHEMIA ST DEVIATION AND MODERATE T-WAVE ABNORMALITY, CONSIDER INFERIOR ISCH EMIA ABNORMAL ECG PREVIOUS TRACING 08/10/17 DOCTOR: Sandeep Nelson Interpretating Date/Time 11/10/2017 14:48:02
--- NOTE | 2017-11-10 14:50 | EKG ---
Date Performed: 11/09/2017 Time Performed: 21:20:50 PTAGE: 66 years EKG: Sinus rhythm WITH MARKED SINUS ARRHYTHMIA POSSIBLE LEFT ATRIAL ENLARGEMENT ST DEVIATION AND MODERATE T-WAVE ABNOR MALITY, CONSIDER ANTEROLATERAL ISCHEMIA ABNORMAL ECG PREVIOUS TRACING : 11/09/2017 16.16 Consider inferior ischemia. DOCTOR: Sandeep Nelson Interpretating Date/Time 11/10/2017 14:48:31
--- NOTE | 2017-11-10 14:50 | EKG ---
Date Performed: 11/09/2017 Time Performed: 16:16:28 PTAGE: 66 years EKG: Sinus rhythm WITH SINUS ARRHYTHMIA NONSPECIFIC ST & T-WAVE ABNORMALITY ABNORMAL ECG PREVIOUS TRACING : 11/09/2017 09.41 Consider inferior and anterolateral ischemia DOCTOR: Sandeep Nelson Interpretating Date/Time 11/10/2017 14:48:17
[2017-11-10] MEDS ORDERED: PROPOFOL 1000 MG/100 ML IV PRN (15:15)
[2017-11-10] MEDS ORDERED: Vancomycin Consult Pharmacy 1 EA OTHER SCH (15:45)
--- NOTE | 2017-11-10 15:52 | HHI.CCPN ---
Subjective Remarks/Hospital Course 66-year-old morbidly obese female with history of COPD on 3 L nasal cannula home O2, obesity hypoventilation syndrome, CHF, CAD (on plavix) and sleep apnea admitted with shortness of breath and hypoxia. Per chart review the patient's sister states that recently, CPAP machine has not been working and that patient had been complaining about it. Last night, machine was malfunctioning again, and patient awakened in the middle of the night with SOB. She was found to be hypoxemic with saturation in 70s-80s. He was initially placed on BiPAP with no improvement and worsening hypercarbic respiratory acidosis. Patient was intubated for acute hypercapnic respiratory failure in the ICU. Subjective: 11/10: The patient remains intubated and sedated. Endotracheal tube retracted several centimeters bilateral breath sounds equal. Patient continues on propofol and fentanyl for sedation. Objective Vital Signs Date Time Temp Pulse Resp B/P (MAP) Pulse Ox O2 Delivery O2 Flow Rate FiO2 11/10/17 15:23 100 40 11/10/17 14:00 71 11/10/17 12:00 97.6 18 150/68 (95) 11/09/17 20:56 BiPAP 11/09/17 10:00 4.00 Intake and Output 11/10/17 11/10/17 11/11/17 08:00 16:00 00:00 Intake Total 206 ml Output Total 1100 ml Balance -894 ml Result Diagram: 11/10/17 0742 11/10/17 0742 Other Results Laboratory Tests Test 11/09/17 21:30 11/09/17 23:15 11/10/17 01:00 Blood Gas Puncture Site RT RADIAL LT RADIAL RT RADIAL Blood Gas Patient Temperature 98.6 98.6 98.6 Blood Gas HCO3 34 mmol/L (22-26) 34 mmol/L (22-26) 29 mmol/L (22-26) Blood Gas Base Excess 5.4 mmol/L (-2-2) 6.1 mmol/L (-2-2) 5.2 mmol/L (-2-2) Blood Gas Oxygen Saturation 90 % (90-100) 92 % (90-100) 96 % (90-100) Arterial Blood pH 7.16 (7.380-7.420) 7.18 (7.380-7.420) 7.47 (7.380-7.420) Arterial Blood Partial Pressure CO2 99 mmHg (38-42) 96 mmHg (38-42) 40 mmHg (38-42) Arterial Blood Partial Pressure O2 75 mmHg (61-120) 83 mmHg (61-120) 105 mmHg (61-120) Arterial Blood Oxygen Content 14.3 Vol % (12.0-20.0) 14.6 Vol % (12.0-20.0) 13.7 Vol % (12.0-20.0) Arterial Blood Carboxyhemoglobin 1.2 % (0-4) 1.3 % (0-4) 1.6 % (0-4) Arterial Blood Methemoglobin 1.5 % (0-2) 1.4 % (0-2) 1.4 % (0-2) Blood Gas Hemoglobin 11.3 G/DL (12.0-16.0) 11.2 G/DL (12.0-16.0) 10.1 G/DL (12.0-16.0) Oxygen Delivery Device BIPAP BIPAP VENTILATOR Blood Gas Ventilator Setting IPAP18/EPAP8 IPAP24/EPAP8 PRVC/AC Blood Gas Inspired Oxygen 85 % 85 % 65 % Imaging Last 24 hours Impressions Chest X-Ray 11/09/17 6654 Signed Impressions: CONCLUSION: Patchy basilar airspace disease. Objective Remarks GENERAL: Morbidly obese female in intubated and sedated SKIN: Warm and dry. HEAD: Normocephalic. EYES: No scleral icterus. No injection or drainage. NECK: Supple, trachea midline. No JVD or lymphadenopathy. CARDIOVASCULAR: Regular rate and rhythm without murmurs, gallops, or rubs. RESPIRATORY: Breath sounds equal bilaterally. No accessory muscle use. GASTROINTESTINAL: Abdomen soft, non-tender, obese nondistended. MUSCULOSKELETAL: No cyanosis, or edema. BACK: Nontender without obvious deformity. NEURO EXAM: RASS -2. Intermittently opens eyes to voice, follows simple commands, oriented to person. No focal deficits A/P Assessment and Plan Plan by systems: Neurologic: Depression disorder Peripheral neuropathy Anxiety Sertraline Lorazepam Propofol and fentanyl infusion to maintain ventilator synchrony/sedation/ analgesia Respiratory: Acute on chronic respiratory failure History of HCAP 08/27/17 COPD OHS/ ARSEN Budesonide/ Formoterol Fumarate DuoNeb scheduled and as needed Budesonide/ Formoterol Fumarate No steroids at this time / good ventilation Mechanical ventilation Vent bundle SBT daily Cardiovascular: Chronic diastolic heart failure History of dyslipidemia History of right iliac artery stent placement Essential hypertension CAD Continue Lasix 40 mg/day Continue home dosing Plavix, aspirin and atorvastatin Antihypertensives currently on hold at this time, resume when clinically indicated Renal: CYNTHIA -- Strict I/Os . Maintain Wise catheter FEN/GI: Electrolyte derangement Hypoalbuminemia Morbid obesity Mild protein calorie malnutrition Monitor BMP Albumin level 3.2 Creatinine 1.12, continue to monitor Dietary consult for tube feeds Heme/ID: Anemia Bacteremia gram-positive 11/10-blood culture gram-positive cocci Follow-up urine and sputum culture Iron supplement-ferrous sulfate 325 mg twice daily Endocrine: Diabetes mellitus Sliding scale insulin per ICU protocol -- SSI Prophylaxis: GI Prophylaxis Famotidine BID DVT Prophylaxis -- SCDs Heparin 5000 subcu twice daily Lines: Peripheral IVs 2. Central line if indicated Dispo: my billing statement This patient remains critically ill with one or more organ systems which are or may become a threat to life. I have spent in excess of 35 minutes discontinuously in the care and management of this patient. This time is exclusive of procedures, and includes, but is not limited to, evaluation of the patient, review of the medical record, discussions with family, consultants, nursing staff, or respiratory therapy, and documentation in the medical record. Physician Julienne Singh MD Nov 10, 2017 15:52
[2017-11-10] MEDS: PIPERACIL-TAZO 3.375 GM PREMIX 50 ML IV SCH (16:58)
--- NOTE | 2017-11-10 17:33 | PD.WCN.NOT ---
Wound Consult Description: Wound consult ordered by Dr.Abid Arvizu for wound management. Communicated with: Kasandra TENA, Recommendation: 1. Reposition patient every 2 hours for comfort and offloading 2. Cleanse inner buttocks groin with remedy soft cloth barrier wipes TID or as need for loose stools. 3. Apply thick layer of Calazime cream to inner buttocks /sacral area. 4. Cleanse breast,pannus skin fold with warm soap and water rinse and pat dry.Apply thin even layer of remedy antifungal powder BID. 5. Cleanse right lower extremity with normal saline pat dry, skin prep periwound. 6. Apply single layer of non adaptic gauze (oil emulsion) to exposed bone/ tendon. 7. Cover with Maxorb ll cut to fit wound base secure with ABD rolled gauze/tape. 8. Change dressing every 3 days or as needed for dislodgement/exudate management.Please sign and date all dressings. 9. Reconsult wound care if treatment fails or wounds worsen. 10. Follow up with out patient wound center. Additional Information: Patient was seen today by loan underwriter for wound management.Patient currently vented and sedated.Dressing removed from right lower extremity with out difficulty.Hydrofera blue removed from wound bases.Wounds cleansed with normals saline and pat dry.Patient noted to have right lower extremity deformation from knee down with tib/fib area has complete muscular atrophy.0 pedal pulse palpable faint popliteal pulse palpable.Patient has 2 full thickness wounds to lateral gaiter area.Proximal wound measures 4.0cm x 3.4cm x 0.3cm.Wound base is 50% exposed bone 25% red granular tissue 25% yellow/brown loosely adhered slough. Periwound dry scaling skin.Wound edges are well defined sloped with wound base.Scant serosanguineous drainage noted without odor.Distal lateral wound measures 5.4cm x 2.7cm x 0.4cm wound base is 50% pink non granular tissue 25% exposed bone and 25% light yellow loosely adhered yellow slough.periwound is dry scaling skin.Wound edges are well defined sloped with wound base.Doubler Helper performed light mechanical debridement with moist gauze.Scant serous drainage noted without odor.Patient noted to have poor vascular circulation noted by no blood exudate after mechanical debridement.Patient noted to have unstageable intact boggy area measuring 2.1cm x 1.1cm x soft adhered yellow/brown slough just proximal of ankle.All wounds cleansed with normal saline oil emulsion gauze applied to exposed bone and Maxorb ll cut to fit wound base applied and covered with ABD secured with rolled gauze paper tape.Dressing signed and dated. Dave Ramon [facility] Nov 10, 2017 17:33
[2017-11-10] MEDS ORDERED: VANCOMYCIN INJ 1,800 MG in SODIUM CHLORID 0.9% 500 ML INJ 500 ML IV ONE (18:00)
[2017-11-10] MEDS ORDERED: VANCOMYCIN IV ONE (18:00)
[2017-11-10] MEDS ORDERED: SODIUM CHLOR 0.9% IV ONE (18:00)
[2017-11-10] MEDS: ATORVASTATIN 40 MG TAB PO SCH (20:27)
[2017-11-11] VITALS (30 sets, daily range): BP systolic 83–143; BP diastolic 42–81; PULSE 75–100; RESP 0–21; TEMP 97.6–100.5; O2SAT 94–100
[2017-11-11] MEDS: PIPERACIL-TAZO 3.375 GM PREMIX 50 ML IV SCH ×5 (01:16→23:47)
[2017-11-11] MEDS: HEPARIN SODIUM - SQ 10,000 UNITS/ML VIAL SQ SCH ×3 (01:17→23:48)
[2017-11-11] MEDS: RESP: ALBUTEROL 2.5 MG/IPRATROPIUM 0.5 MG NEB (SCH) INH ×6 (02:58→23:23)
[2017-11-11] MEDS: CHLORHEXIDINE GLUCONATE 2 % 1 PACK (2 CLOTHS)(taper/protocol) TOPICAL SCH (03:21)
--- NOTE | 2017-11-11 05:32 | RADRPT ---
EXAM DATE: 11/11/2017 5:26 AM EDT AGE/SEX: 66 years / Female INDICATIONS: Short of breath. CLINICAL DATA: This is the patient's subsequent encounter. Patient reports that signs and symptoms h ave been present for 3 days and indicates a pain score of 0/10. MEDICAL/SURGICAL HISTORY: Hypertension. Cardiovascular disease. Chronic obstructive pulmonary d isease. Diabetes . Tubal ligation. Hysterectomy. [place] [facility] [place]. . FINDINGS: Single AP view the chest. Endotracheal tube and nasogastric tube remain in place. Endotracheal tube t ip is approximately 1 cm above the teresita. Persistent cardiac silhouette enlargement. Mild bilateral patchy pulmonary opacity unchanged. No evidence of pleural effusion or pneumothorax. CONCLUSION: No significant interval change with mild patchy bilateral pulmonary opacity again seen. Electronically signed by: Tommy Pryor MD 11/11/2017 5:31 AM EDT
[2017-11-11 06:15] LABS: AUTOMATED NEUTROPHIL # 7.7 TH/MM3 (1.8-7.7); BASOPHIL % 0.4 % (0.0-2.0); EOSINOPHIL % 0.3 % (0.0-4.0); HEMATOCRIT 33.3 % (35.0-46.0); LYMPH % 12.7 % (9.0-44.0); LYMPHOCYTE # 1.3 TH/MM3 (1.0-4.8); MEAN CELL VOLUME 73.5 FL (80.0-100.0); MEAN CORPUSCULAR HEMOGLOBIN 22.2 PG (27.0-34.0); MEAN CORPUSCULAR HGB CONC 30.2 % (32.0-36.0); MONO % 10.3 % (0.0-8.0); NEUT % 76.3 % (16.0-70.0); PLATELET COUNT 280 TH/MM3 (150-450); RED BLOOD COUNT 4.52 MIL/MM3 (4.00-5.30); RED CELL DISTRIBUTION WIDTH 18.6 % (11.6-17.2); WHITE BLOOD COUNT 10.1 TH/MM3 (4.0-11.0)
[2017-11-11 06:57] LABS: BICARBONATE 27.2 MEQ/L (21.0-32.0); CALCIUM 8.3 MG/DL (8.5-10.1); CREATININE 1.24 MG/DL (0.50-1.00); MAGNESIUM 2.5 MG/DL (1.5-2.5); PHOSPHORUS 1.4 MG/DL (2.5-4.9)
[2017-11-11] MEDS: SERTRALINE HCL 100 MG TAB PO SCH (08:06)
[2017-11-11] MEDS: FAMOTIDINE 20 MG TAB PO SCH ×2 (08:06→20:57)
[2017-11-11] MEDS: CLOPIDOGREL 75 MG TAB PO SCH (08:06)
[2017-11-11] MEDS: FERROUS SULFATE 325 MG (65 MG ELEMENTAL IRON) TAB PO SCH ×2 (08:06→20:57)
[2017-11-11] MEDS: ASPIRIN 81 MG CHEW TAB PO SCH (08:06)
[2017-11-11] MEDS: LORATADINE 10 MG TAB PO SCH (08:06)
[2017-11-11] MEDS: FUROSEMIDE 40 MG TAB PO SCH (08:07)
[2017-11-11] MEDS: BUDESONIDE-FORMOTEROL 160/4.5 MCG INHALER INH SCH ×2 (08:07→20:57)
[2017-11-11] MEDS: INSULIN ASPART SUPPLEMENTAL SCALE SQ SCH ×4 (08:07→21:00)
[2017-11-11] MEDS: ARTIFICIAL TEAR OPTH EACH EYE SCH ×2 (08:07→20:58)
[2017-11-11] MEDS: CHLORHEXIDINE 0.12% (ORAL KIT) 15 ML CUP MT SCH ×2 (08:07→20:57)
[2017-11-11] MEDS: SODIUM CHLORIDE 0.9% FLUSH 10 ML FLUSH IV FLUSH SCH ×2 (08:07→20:57)
[2017-11-11] MEDS: NYSTATIN 100,000 UNIT/GM CREAM 15 GM TOPICAL SCH ×2 (08:08→23:46)
[2017-11-11] MEDS: DEXMEDETOMIDINE 200 MCG in NS 48 ML IV PRN ×2 (10:14→16:51)
--- NOTE | 2017-11-11 10:55 | HHI.CCPN ---
Subjective Remarks/Hospital Course 66-year-old morbidly obese female with history of COPD on 3 L nasal cannula home O2, obesity hypoventilation syndrome, CHF, CAD (on plavix) and sleep apnea admitted with shortness of breath and hypoxia. Per chart review the patient's sister states that recently, CPAP machine has not been working and that patient had been complaining about it. Last night, machine was malfunctioning again, and patient awakened in the middle of the night with SOB. She was found to be hypoxemic with saturation in 70s-80s. He was initially placed on BiPAP with no improvement and worsening hypercarbic respiratory acidosis. Patient was intubated for acute hypercapnic respiratory failure in the ICU. Subjective: 11/10: The patient remains intubated and sedated. Endotracheal tube retracted several centimeters bilateral breath sounds equal. Patient continues on propofol and fentanyl for sedation. Objective Vital Signs Date Time Temp Pulse Resp B/P (MAP) Pulse Ox O2 Delivery O2 Flow Rate FiO2 11/11/17 10:00 86 11/11/17 09:30 18 88/51 (63) 97 11/11/17 09:02 35 11/11/17 08:00 100.5 11/09/17 20:56 BiPAP 11/09/17 10:00 4.00 Intake and Output 11/11/17 11/11/17 11/11/17 07:59 15:59 23:59 Intake Total 533 ml Output Total 1325 ml Balance -792 ml Result Diagram: 11/11/17 0515 11/11/17 0515 Imaging Last 24 hours Impressions Chest X-Ray 11/09/17 0938 Signed Impressions: CONCLUSION: Patchy basilar airspace disease. Objective Remarks GENERAL: Morbidly obese female in intubated and sedated SKIN: Warm and dry. HEAD: Normocephalic. EYES: No scleral icterus. No injection or drainage. NECK: Supple, trachea midline. No JVD or lymphadenopathy. CARDIOVASCULAR: Regular rate and rhythm without murmurs, gallops, or rubs. RESPIRATORY: Breath sounds equal bilaterally. No accessory muscle use. GASTROINTESTINAL: Abdomen soft, non-tender, obese nondistended. MUSCULOSKELETAL: No cyanosis, or edema. BACK: Nontender without obvious deformity. NEURO EXAM: RASS -2. Intermittently opens eyes to voice, follows simple commands, oriented to person. No focal deficits A/P Assessment and Plan Plan by systems: Neurologic: Depression disorder Peripheral neuropathy Anxiety Sertraline Lorazepam Propofol and fentanyl infusion to maintain ventilator synchrony/sedation/ analgesia Respiratory: Acute on chronic respiratory failure History of HCAP 08/27/17 COPD OHS/ ARSEN Budesonide/ Formoterol Fumarate DuoNeb scheduled and as needed Budesonide/ Formoterol Fumarate No steroids at this time / good ventilation Mechanical ventilation Vent bundle SBT daily Cardiovascular: Chronic diastolic heart failure History of dyslipidemia History of right iliac artery stent placement Essential hypertension CAD Continue Lasix 40 mg/day Continue home dosing Plavix, aspirin and atorvastatin Antihypertensives currently on hold at this time, resume when clinically indicated Renal: CYNTHIA -- Strict I/Os . Maintain Wise catheter FEN/GI: Electrolyte derangement Hypoalbuminemia Morbid obesity Mild protein calorie malnutrition Monitor BMP Albumin level 3.2 Creatinine 1.12, continue to monitor Dietary consult for tube feeds Heme/ID: Anemia Bacteremia gram-positive 11/10-blood culture gram-positive cocci Follow-up urine and sputum culture Iron supplement-ferrous sulfate 325 mg twice daily Endocrine: Diabetes mellitus Sliding scale insulin per ICU protocol -- SSI Prophylaxis: GI Prophylaxis Famotidine BID DVT Prophylaxis -- SCDs Heparin 5000 subcu twice daily Lines: Peripheral IVs 2. Central line if indicated Dispo: my billing statement This patient remains critically ill with one or more organ systems which are or may become a threat to life. I have spent in excess of 35 minutes discontinuously in the care and management of this patient. This time is exclusive of procedures, and includes, but is not limited to, evaluation of the patient, review of the medical record, discussions with family, consultants, nursing staff, or respiratory therapy, and documentation in the medical record. Julienne Geronimo MD Nov 11, 2017 10:54
--- NOTE | 2017-11-11 11:05 | HHI.FPPN ---
Subjective Remarks Patient is still intubated. Sedated on propofol and fentanyl. CPAP weaning trial performed in the room failed. Undergoing CPAP weaning trials. No acute events overnight. BP 88/51-141/81. Holding anti-hypertensives. (Ksenia Brunner MD R1) Objective Vitals Vital Signs Date Time Temp Pulse Resp B/P (MAP) Pulse Ox O2 Delivery O2 Flow Rate FiO2 11/11/17 10:00 86 11/11/17 09:30 91 18 88/51 (63) 97 11/11/17 09:11 20 11/11/17 09:02 35 11/11/17 09:02 97 40 11/11/17 09:01 96 18 109/55 (73) 97 11/11/17 08:31 95 18 141/81 (101) 97 11/11/17 08:00 100.5 92 20 103/61 (75) 97 11/11/17 08:00 94 11/11/17 08:00 40 11/11/17 04:01 89 18 89/48 (62) 97 11/11/17 04:01 98 40 11/11/17 04:00 40 11/11/17 04:00 97.8 91 18 89/48 (62) 97 11/11/17 03:32 100 21 126/58 (80) 100 11/11/17 03:19 90 18 97/53 (68) 98 11/11/17 03:02 87 19 83/56 (65) 99 11/11/17 02:50 86 19 92/49 (63) 100 11/11/17 02:33 90 18 93/54 (67) 100 11/11/17 02:16 91 18 104/55 (71) 100 11/11/17 02:04 90 20 143/60 (87) 100 11/11/17 00:00 97.6 92 18 99/42 (61) 98 11/11/17 00:00 40 11/10/17 23:31 99 40 11/10/17 20:10 100 40 11/10/17 20:00 40 11/10/17 20:00 97.3 79 19 95/53 (67) 100 11/10/17 18:00 83 11/10/17 16:00 40 11/10/17 16:00 97.8 71 18 109/53 (71) 100 11/10/17 16:00 71 11/10/17 16:00 60 11/10/17 15:23 100 40 11/10/17 14:00 71 11/10/17 12:12 100 40 11/10/17 12:00 60 11/10/17 12:00 97.6 71 18 150/68 (95) 100 11/10/17 12:00 71 I/O 11/10/17 11/10/17 11/10/17 11/11/17 11/11/17 11/11/17 07:00 15:00 23:00 07:00 15:00 23:00 Intake Total 206 ml 97 ml 533 ml Output Total 1100 ml 950 ml 1325 ml Balance -894 ml -853 ml -792 ml Intake Oral 0 ml IV Total 206 ml 97 ml 217 ml Tube Feeding 116 ml Other 200 ml Output Urine Total 1100 ml 950 ml 1325 ml # Bowel Movements 0 0 (Ksenia Brunner MD R1) Result Diagram: 11/11/17 0515 11/11/17 0515 Objective Remarks O. CONSTITUTIONAL/GEN: Morbidly obese woman sedated and on intubation. EYES: closed. ENT: Intubated LUNGS: Referred upper airway sounds. CARDIOVASCULAR: RR, heart sounds distant due to body habitus. GI/ABD: obese and protuberant. SKIN: color normal, no rashes noted. HEME/LYMPH: no bruising, petechia. MUSC: Right lower extremity is bandaged w/gauze and shows deformity of the right toes, muscle atrophy and hyperpigmentation of the leg. Some hyperpigmentation seen at the ankle of the left foot. Stable from yesterday's exam. (Ksenia Brunner MD R1) A/P Assessment and Plan 66 y/o F w/hx of respiratory failure requiring intubation, COPD, CHF, and morbid obesity admitted for COPD exacerbation. Intubated on 11/09 for respiratory failure. Critical Care consulted, appreciate assistance in management. Prognosis is poor at this time. Pulmonology and palliative care consulted to address long-term planning. (Ksenia Brunner MD R1) Attending Attestation Patient seen and examined. Case reviewed and discussed with the resident team. Agree with plan of care as discussed with me and documented in the resident note. (Brandi Bush MD) Problem List: (1) Respiratory failure ICD Codes: J96.90 - Respiratory failure, unspecified, unspecified whether with hypoxia or hypercapnia Plan: Intubated (11/10-) Spoke to Dr. Greonimo () today about management below. Causes: Poorly controlled COPD v HCAP CXR today unchanged, showing bilateral pulmonary opacities. Blood cx +gram cocci. Failed weaning trials thus far. Sedated on propofol and fentanyl. Plan to transition to Precedex and repeat CPAP weaning trials today. No solumedrol at this time. Vanc and Zosyn Day #2 (initiated 11/10) Procalcitonin level ordered ID consulted (2) Acute renal failure ICD Codes: N17.9 - Acute kidney failure, unspecified Status: Chronic Plan: Baseline Cr 0.6-0.9. GFR baseline 90-100. Likely pre-renal 2/2 Improving CMP in the AM Avoid nephrotoxic agents (ASA, lovenox, etc) (3) CHF (congestive heart failure) ICD Codes: I50.9 - CHF (congestive heart failure) Status: Chronic Plan: STABLE Takes home Lasix, lisinopril, isosorbide dinitrate PO Con't Lasix 40 mg daily Anti-hypertensives held at this time due to low BP (4) Leg wound, right ICD Codes: S81.801A - Leg wound, right Status: Chronic Plan: STABLE Hx of MRSA positive infxn Result of poor LE circulation Wound ostomy consulted, appreciate recs to address care for right lower extremity wound. (5) Sacral decubitus ulcer, stage II ICD Codes: L89.152 - Pressure ulcer of sacral region, stage 2 Plan: STABLE Pressure ulcer prevention Wound ostomy nurse consulted for recs, appreciate assistance (6) COPD (chronic obstructive pulmonary disease) ICD Codes: J44.9 - COPD (chronic obstructive pulmonary disease) Status: Chronic Plan: Home: Duonebs TID, Symbicort 2 puffs BID Currently intubated Will resume duoneb/alb if needed after extubation (7) Sleep apnea ICD Codes: G47.30 - Sleep apnea, unspecified Status: Chronic Plan: Requires CIPAP while asleep (8) Diabetes mellitus ICD Codes: E11.9 - Type 2 diabetes mellitus without complications Status: Chronic Plan: Home: Novolog SS and lantus 10 units, sitagliptin 100 mg daily Low dose SSI (9) Chronic leg pain ICD Codes: M79.606 - Pain in leg, unspecified; G89.29 - Other chronic pain Plan: Home med oxycodone 5 mg and Gabapentin held to prevent further drowsiness and respiratory compromise Tylenol and Percocet PRN for pain (10) Coronary artery disease ICD Codes: I25.10 - Atherosclerotic heart disease of [place] coronary artery without angina pectoris Status: Chronic Plan: Con't home plavix and atorvastatin Hold ASA (11) Anxiety ICD Codes: F41.9 - Anxiety disorder, unspecified Plan: Con't home Ativan TID PRN (12) Depression ICD Codes: F32.9 - Major depressive disorder, single episode, unspecified Status: Chronic Plan: con't home zoloft daily (13) Iron deficiency anemia ICD Codes: D50.9 - Iron deficiency anemia, unspecified Plan: Con't ferrous sulfate Laxatives and stool softeners PRN (14) FEN Plan: Fluids: none for now, careful to avoid fluid overload Electrolytes: none Nutrition: Reg/diabetic diet DVT prophy: Heparin GI prophy: Pepcid (Ksenia Brunner MD R1) Problem Qualifiers (1) Respiratory failure: Qualified Codes: J96.01 - Acute respiratory failure with hypoxia (2) Acute renal failure: Qualified Codes: N17.9 - Acute kidney failure, unspecified (3) CHF (congestive heart failure): Qualified Codes: I50.9 - Heart failure, unspecified (4) Leg wound, right: Qualified Codes: S81.801A - Unspecified open wound, right lower leg, initial encounter (5) COPD (chronic obstructive pulmonary disease): Qualified Codes: J44.9 - Chronic obstructive pulmonary disease, unspecified (6) Sleep apnea: Qualified Codes: G47.30 - Sleep apnea, unspecified (7) Diabetes mellitus: Qualified Codes: E11.8 - Type 2 diabetes mellitus with unspecified complications (8) Chronic leg pain: Qualified Codes: M79.604 - Pain in right leg; M79.605 - Pain in left leg; G89.29 - Other chronic pain (9) Coronary artery disease: (10) Depression: Qualified Codes: F32.9 - Major depressive disorder, single episode, unspecified Ksenia Brunner MD R1 Nov 11, 2017 11:05 Brandi Bush MD Nov 11, 2017 14:58
--- NOTE | 2017-11-11 12:12 | PD.CONS ---
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 identified at this time . Important Contacts Health Care Surrogate -Sister-Melissa Page [phone]/ [phone] Alternate Health Care Surrogate- Chito Page [phone] . Prognosis Ms. Page is a 66 years old female with a past medical history significant for COPD on home oxygen, congestive heart failure, sleep apnea, diabetes mellitus, hypertension, DC, GERD, and obesity. Patient was brought to the ER on 11/09/17 via EMS for further evaluation of shortness of breath. Clinical course complicated with hypercarbic respiratory acidosis requiring intubation. Given ongoing multiple comorbidities and recent hospitalizations due to respiratory issues, patient remains at high risk for further complications, deterioration and decline. . Code Status: Full Code Plan PLAN: Legal decision maker: Patient is currently intubated on mechanical ventilation and not able to participate in medical decision making at this time. Patient has completed healthcare surrogate form in the past. Her designated healthcare surrogate is Melissa Page (her sister) and her alternate HCS is (her brother) Chito Page. Goals: Aggressive, Discussed with patient`s sister and at this time she wants to honor patient wishes to have everything possible done to make her feel better and keep her alive though she mentions that if patient is not able to be medically extubated she will most likely not proceed with tracheostomy or PEG placement. 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 Patient was on a Fentanyl infusion. Currently on hold due to hypotension. Patient is Percocet 10/325. Last dose 1017 . Currently not showing signs of pain. Continue to assess for signs and symptoms of pain. * Shortness of breath: Patient is history of COPD. Patient is currently intubated on mechanical ventilation with FiO2 of 40%. Current chest x-ray showing mild bilateral patchy pulmonary opacity. Patient failed CPAP trial today per nursing. Patient is on antibiotics, duonebs and furosemide. No recommendation * Anxiety: Patient has history of COPD on home oxygen. Lorazepam 0.5 mg q. 8 PRN available. Currently on Precedex infusion at 0.2 mcg/kg/h. No recommendation Palliative care will continue to follow the patient during hospital course as condition evolves, to assist patient/decision-maker with understanding of their medical conditions, weighing benefits/burdens of treatment options, for clarification of goals of treatment. Additionally will assist with any symptoms of palliative concern Thank you for the opportunity to participate in the care of Ms. Page. Attestation To help prompt me to consider important information that might be impacting today's encounter and assessment, information from prior notes written by myself or my colleagues may have been "brought forward" into today's note. My signature on this note, however, is an attestation that I personally performed the exam, history, and/or decision-making noted today, and, unless otherwise indicated, the interactions with patient, family, and staff as well as the review of records all occurred today. I also attest that the listed assessment and stated plan reflect my best clinical judgment today based on the combination of historical information, prior notes, and today's exam/ interactions. When time spent is documented, it refers only to time spent today by the signer, or if indicated, combined time spent today by collaborating physician/nurse practitioner. Valarie Kim Nov 11, 2017 12:12
[2017-11-11] MEDS ORDERED: SODIUM PHOSPHATE INJ 30 MMOL in SODIUM CHLOR 0.9% 250 ML INJ 250 ML IV ONE (13:30)
--- NOTE | 2017-11-11 13:45 | HHI.CCPN ---
Subjective Remarks/Hospital Course 66-year-old morbidly obese female with history of COPD on 3 L nasal cannula home O2, obesity hypoventilation syndrome, CHF, CAD (on plavix) and sleep apnea admitted with shortness of breath and hypoxia. Per chart review the patient's sister states that recently, CPAP machine has not been working and that patient had been complaining about it. Last night, machine was malfunctioning again, and patient awakened in the middle of the night with SOB. She was found to be hypoxemic with saturation in 70s-80s. He was initially placed on BiPAP with no improvement and worsening hypercarbic respiratory acidosis. Patient was intubated for acute hypercapnic respiratory failure in the ICU. Subjective: 11/10: The patient remains intubated and sedated. Endotracheal tube retracted several centimeters bilateral breath sounds equal. Patient continues on propofol and fentanyl for sedation. 11/11: Afebrile. No acute issues overnight. The patient's glucose level remains elevated. Moderate dose insulin sliding scale initiated. Discussion with the daughter, requesting definition of goals of care. Palliative care has been consult. CPAP trials were initiated, were unsuccessful today. Pulmonology has been consulted. Objective Vital Signs Date Time Temp Pulse Resp B/P (MAP) Pulse Ox O2 Delivery O2 Flow Rate FiO2 11/11/17 13:00 79 18 87/52 (64) 97 11/11/17 12:00 40 11/11/17 12:00 99.0 11/09/17 20:56 BiPAP 11/09/17 10:00 4.00 Intake and Output 11/11/17 11/11/17 11/12/17 08:00 16:00 00:00 Intake Total 533 ml Output Total 1325 ml Balance -792 ml Result Diagram: 11/11/17 0515 11/11/17 0515 Imaging Last 24 hours Impressions Chest X-Ray 11/09/17 0941 Signed Impressions: CONCLUSION: Patchy basilar airspace disease. Objective Remarks GENERAL: Morbidly obese female in intubated and sedated SKIN: Warm and dry. HEAD: Normocephalic. EYES: No scleral icterus. No injection or drainage. NECK: Supple, trachea midline. No JVD or lymphadenopathy. CARDIOVASCULAR: Regular rate and rhythm without murmurs, gallops, or rubs. RESPIRATORY: Breath sounds equal bilaterally. No accessory muscle use. GASTROINTESTINAL: Abdomen soft, non-tender, obese nondistended. MUSCULOSKELETAL: No cyanosis, or edema. BACK: Nontender without obvious deformity. NEURO EXAM: RASS -2. Intermittently opens eyes to voice, follows simple commands, oriented to person. No focal deficits A/P Assessment and Plan Plan by systems: Neurologic: Depression disorder Peripheral neuropathy Anxiety Sertraline Lorazepam Propofol and fentanyl infusion to maintain ventilator synchrony/sedation/ analgesia Initiate Precedex to facilitate ventilator weaning process Respiratory: Acute on chronic respiratory failure History of HCAP 08/27/17 COPD OHS/ ARSEN DuoNeb scheduled and as needed Budesonide/ Formoterol Fumarate No steroids at this time / good ventilation Mechanical ventilation Vent bundle SBT daily Cardiovascular: Chronic diastolic heart failure History of dyslipidemia History of right iliac artery stent placement Essential hypertension CAD Continue Lasix 40 mg/day Continue home dosing Plavix, aspirin and atorvastatin Antihypertensives currently on hold at this time, resume when clinically indicated Renal: CYNTHIA -- Strict I/Os . Maintain Wise catheter FEN/GI: Electrolyte derangement Hypoalbuminemia Morbid obesity Mild protein calorie malnutrition Monitor BMP Albumin level 3.2 Creatinine 1.12, continue to monitor Dietary consult for tube feeds Heme/ID: Anemia Bacteremia gram-positive 11/10-blood culture gram-positive cocci Follow-up urine and sputum culture Iron supplement-ferrous sulfate 325 mg twice daily Follow-up pro calcitonin level Endocrine: Diabetes mellitus Sliding scale insulin per ICU protocol. Increase to medium dose sliding scale Glucose monitoring per ICU protocol -- SSI Prophylaxis: GI Prophylaxis Famotidine BID DVT Prophylaxis -- SCDs Heparin 5000 SQ twice daily Lines: Peripheral IVs 2. Central line if indicated Dispo: my billing statement This patient remains critically ill with one or more organ systems which are or may become a threat to life. I have spent in excess of 33 minutes discontinuously in the care and management of this patient. This time is exclusive of procedures, and includes, but is not limited to, evaluation of the patient, review of the medical record, discussions with family, consultants, nursing staff, or respiratory therapy, and documentation in the medical record. Palliative care has been consulted after discussion with the daughter to define goals of care. Physician Julienne Singh MD Nov 11, 2017 13:45
--- NOTE | 2017-11-11 17:03 | PD.ID.CON ---
History of Present Illness Service ID Consult Requested By Dr Abarca Reason for Consult sepsis, PNA Primary Care Physician No Primary Care Physician Diagnoses: History of Present Illness pt unable to provide history Hx from the chart 66-year-old morbidly obese female with history of COPD on 3 L nasal cannula home O2, obesity hypoventilation syndrome, CHF, CAD (on plavix) and sleep apnea admitted 3 days ago with shortness of breath and hypoxia. Patient was intubated for acute hypercapnic respiratory failure in the ICU. Patient remains intubated and sedated. Pt is afebrile. Mild luekocytosis on presentatoiion CXR with b/l infiltrates Growing coag neg staph in 06/05 blood clx Spuitum clx growing staph spp CPAP trials were i unsuccessful today. Pulmonology and Palliative care has been consulted. Review of Systems ROS Limitations: Clinical Condition, Intubated, Altered Mental Status, Unresponsive Past Family Social History Allergies: Coded Allergies: *MDRO Multi-Drug Resistant Organism (Verified Adverse Reaction, Unknown, MRSA, 11/09/17) MRSA PCR positive - 06/28/2015 & 06/03/16 Past Medical History Past Medical History Rheumatoid arthritis Anxiety Depression COPD-chronic O2 3 L (PFT 07/2016 notes severe restrictive disease) CHF CAD Diabetes GERD Glaucoma Hypertension [place] Sleep apnea Obesity Hx of MRSA positive wound (R Leg) Diverticulosis Chronic bilateral leg pain Past Surgical History Cataract surgery Iliac stent right Partial hysterectomy section Cyst removal breast right Active Ordered Medications Medications where reviewed in EMR Antibiotics Include: zosyn vancomycin Family History Mother: Diabetes mellitus and hypertension Father: Diabetes mellitus and hypertension Social History Lives at [facility] Smoking history of 40 pack years, quit 7 years ago No no documented history of alcohol or illicit drug abuse Physical Exam Vital Signs Vital Signs Date Time Temp Pulse Resp B/P (MAP) Pulse Ox O2 Delivery O2 Flow Rate FiO2 11/11/17 15:24 40 11/11/17 15:18 94 40 11/11/17 15:18 40 11/11/17 14:00 81 11/11/17 13:00 79 18 87/52 (64) 97 11/11/17 12:30 77 18 102/55 (71) 97 11/11/17 12:00 80 11/11/17 12:00 40 11/11/17 12:00 99.0 80 0 106/54 (71) 98 11/11/17 11:37 98 40 11/11/17 10:00 86 11/11/17 09:30 91 18 88/51 (63) 97 11/11/17 09:11 20 11/11/17 09:02 35 11/11/17 09:02 97 40 11/11/17 09:01 96 18 109/55 (73) 97 11/11/17 08:31 95 18 141/81 (101) 97 11/11/17 08:00 100.5 92 20 103/61 (75) 97 11/11/17 08:00 94 11/11/17 08:00 40 11/11/17 04:01 89 18 89/48 (62) 97 11/11/17 04:01 98 40 11/11/17 04:00 40 11/11/17 04:00 97.8 91 18 89/48 (62) 97 11/11/17 03:32 100 21 126/58 (80) 100 11/11/17 03:19 90 18 97/53 (68) 98 11/11/17 03:02 87 19 83/56 (65) 99 11/11/17 02:50 86 19 92/49 (63) 100 11/11/17 02:33 90 18 93/54 (67) 100 11/11/17 02:16 91 18 104/55 (71) 100 11/11/17 02:04 90 20 143/60 (87) 100 11/11/17 00:00 97.6 92 18 99/42 (61) 98 11/11/17 00:00 40 11/10/17 23:31 99 40 11/10/17 20:10 100 40 11/10/17 20:00 40 11/10/17 20:00 97.3 79 19 95/53 (67) 100 11/10/17 18:00 83 Physical Exam CONSTITUTIONAL/GENERAL: This is an adequately nourished patient, in no apparent distress. TUBES/LINES/DRAINS: SKIN: No jaundice, rashes, or lesions. Skin temperature appropriate. Not diaphoretic. HEAD: Atraumatic. Normocephalic. EYES: Pupils equal and round and reactive. Extraocular motions intact. No scleral icterus. No injection or drainage. Fundi not examined. ENT: Hearing not tested. Nose without bleeding or purulent drainage. Throat without visible erythema, exudates, masses, or lesions. NECK: Trachea midline. Supple, nontender. No palpable thyroid enlargement or nodularity. CARDIOVASCULAR: Regular rate and rhythm without murmurs, gallops, or rubs. No JVD. Peripheral pulses symmetric. RESPIRATORY/CHEST: Symmetric, unlabored respirations. Clear to auscultation. Breath sounds equal bilaterally. No wheezes, rales, or rhonchi. GASTROINTESTINAL: Abdomen soft, non-tender, nondistended. No hepato-splenomegaly , or palpable masses. No guarding. Bowel sounds present. GENITOURINARY: Without palpable bladder distension. Wise catheter in place. MUSCULOSKELETAL: Extremities without clubbing, cyanosis, or edema. No joint tenderness or effusion noted. No calf tenderness. No mottling or clubbing. Wound R LE, dressin g in place LYMPHATICS: No palpable cervical or supraclavicular adenopathy. NEUROLOGICAL: sedated, unresponsive PSYCHIATRIC: unable to assess Laboratory Laboratory Tests Test 11/11/17 05:15 White Blood Count 10.1 Red Blood Count 4.52 Hemoglobin 10.0 Hematocrit 33.3 Mean Corpuscular Volume 73.5 Mean Corpuscular Hemoglobin 22.2 Mean Corpuscular Hemoglobin Concent 30.2 Red Cell Distribution Width 18.6 Platelet Count 280 Mean Platelet Volume 9.0 Neutrophils (%) (Auto) 76.3 Lymphocytes (%) (Auto) 12.7 Monocytes (%) (Auto) 10.3 Eosinophils (%) (Auto) 0.3 Basophils (%) (Auto) 0.4 Neutrophils # (Auto) 7.7 Lymphocytes # (Auto) 1.3 Monocytes # (Auto) 1.0 Eosinophils # (Auto) 0.0 Basophils # (Auto) 0.0 CBC Comment AUTO DIFF Differential Comment AUTO DIFF CONFIRMED Blood Urea Nitrogen 32 Creatinine 1.24 Random Glucose 237 Calcium Level 8.3 Phosphorus Level 1.4 Magnesium Level 2.5 Sodium Level 142 Potassium Level 4.2 Chloride Level 105 Carbon Dioxide Level 27.2 Anion Gap 10 Estimat Glomerular Filtration Rate 53 Procalcitonin 0.25 Date/Time Source Procedure Growth Status 11/09/17 09:57 Blood Peripheral Aerobic Blood Culture - Preliminary Staph Sp Coagulase Negative Resulted 11/09/17 09:57 Blood Peripheral Anaerobic Blood Culture - Preliminary NO GROWTH IN 2 DAYS Resulted 11/10/17 18:00 Sputum Endotracheal Gram Stain - Final Resulted 11/10/17 18:00 Sputum Culture - Preliminary Staphylococcus Species Resulted Result Diagram: 11/11/17 0515 11/11/17 0515 Imaging Last Impressions Chest X-Ray 11/11/17 0600 Signed Impressions: CONCLUSION: No significant interval change with mild patchy bilateral pulmonary opacity aga in seen. Assessment and Plan Assessment and Plan Pt with COPD presentes with Hypercapnic acute resp failure VDRF B/l pulm infiltrates - PNA, ? MRSA Chronic RLE wound, MRSA Coag neg staph bacteremia, low grade so far, clinical unclear, but if remains low grade unlikley clinically important cont current abx fu clx untill final further rec's to follow Angeles Nelson MD Nov 11, 2017 17:03
[2017-11-11] MEDS: VANCOMYCIN INJ 1,800 MG in SODIUM CHLORID 0.9% 500 ML INJ 500 ML IV SCH (17:26)
--- NOTE | 2017-11-11 19:41 | MB ---
cc: Viktoria Blum MD DATE: 11/11/2017 REASON FOR CONSULTATION: The patient with COPD, respiratory failure, on ventilatory support. HISTORY OF PRESENT ILLNESS: Ms. Page is a 66-year-old female with known history of COPD of severe degree, chronic respiratory failure on home oxygen therapy, congestive heart failure, obstructive sleep apnea on PAP therapy at home, apparently with a malfunctioning machine, admitted with acute respiratory distress acute respiratory failure, failed BiPAP therapy, intubated and mechanically ventilated, presently on ventilatory support. The patient presently sedated, does not relate any history. The history is obtained from her record. PAST MEDICAL HISTORY: COPD, congestive heart failure, chronic respiratory failure on oxygen therapy at home, obstructive sleep apnea,on PAP therapy, rheumatoid arthritis; mood disorder, namely anxiety, depression; acid reflux disease, hypertension, and obesity. PAST SURGICAL HISTORY: Previous cataract surgery, right iliac artery stenting, hysterectomy, , cyst removed from her right breast. MEDICATIONS: Include: 1. Vancomycin. 2. Pepcid. 3. Piperacillin-tazobactam. 4. Lasix. 5. Zoloft. 6. Sedation as needed for vent support. 7. Budesonide formoterol nebulized treatments. 8. Albuterol ipratropium p.r.n. ALLERGIES: NONE PER RECORD. FAMILY HISTORY: Positive for diabetes and hypertension. Her mother had juvenile diabetes. SOCIAL HISTORY: Long smoking history, stopped 7 years ago. Does not drink alcohol, does not use drugs. REVIEW OF SYSTEMS: A 12-point review of systems as per HPI. Past history otherwise unknown. LABORATORY DATA: White count 10,000; hemoglobin 10; hematocrit 33. Sodium 142, potassium 4.2, BUN 32, creatinine 1.2. ABG: pH 7.47, PCO2 of 40, pO2 of 105. IMPRESSION: 1. Acute respiratory failure. 2. Chronic obstructive pulmonary disease. 3. Congestive heart failure. 4. Diabetes mellitus. 5. Obstructive sleep apnea. 6. Chronic respiratory failure, on home oxygen therapy. PLAN: The patient will be maintained on ventilatory support as needed. Bronchodilators continued. Antibiotic therapy has been initiated and appropriately so. The weaning process will be initiated as tolerate. Course followed closely and depending on progress, proceed further. I do thank you for asking me to partake in Ms. Page's care. MD CHAPITO Villanueva/KENNY , 07:08 PM , 07:40 PM
[2017-11-11] MEDS: ATORVASTATIN 40 MG TAB PO SCH (20:57)
[2017-11-11] MEDS: DEXMEDETOMIDINE INJ 1,000 MCG in SODIUM CHLOR 0.9% 250 ML INJ 240 ML IV PRN (21:29)
[2017-11-12] VITALS (20 sets, daily range): BP systolic 99–141; BP diastolic 59–81; PULSE 67–84; RESP 18; TEMP 98.6–99.7; O2SAT 99–100
[2017-11-12] MEDS: RESP: ALBUTEROL 2.5 MG/IPRATROPIUM 0.5 MG NEB (SCH) INH ×6 (03:32→19:55)
[2017-11-12] MEDS: CHLORHEXIDINE GLUCONATE 2 % 1 PACK (2 CLOTHS)(taper/protocol) TOPICAL SCH (04:00)
[2017-11-12] MEDS: PIPERACIL-TAZO 3.375 GM PREMIX 50 ML IV SCH ×3 (04:18→17:00)
[2017-11-12] MEDS: DEXMEDETOMIDINE INJ 1,000 MCG in SODIUM CHLOR 0.9% 250 ML INJ 240 ML IV PRN ×3 (04:18→19:39)
--- NOTE | 2017-11-12 04:27 | RADRPT ---
EXAM DATE: 11/12/2017 4:24 AM EDT AGE/SEX: 66 years / Female INDICATIONS: Short of breath. CLINICAL DATA: This is the patient's subsequent encounter. Patient reports that signs and symptoms h ave been present for 4 - 6 days and indicates a pain score of 0/10. MEDICAL/SURGICAL HISTORY: Hypertension. Cardiovascular disease. Chronic obstructive pulmonary disease. Diabetes . Hysterectomy. Tubal ligation. COMPARISON: [facility] [place] S[place], 11/11/2017. . FINDINGS: Single AP view the chest. Endotracheal tube and nasogastric tube remain in place. Persistent cardiac silhouette enlargement. Persistent bilateral perihilar and basilar lung opacity. No evidence of pneum othorax. No significant interval change. CONCLUSION: No significant interval change with persistent patchy bilateral pulmonary opacity and cardiac silhoue tte enlargement. Electronically signed by: Tommy Pryor MD 11/12/2017 4:26 AM EDT
[2017-11-12 05:35] LABS: HEMATOCRIT 35.8 % (35.0-46.0); HEMOGLOBIN 10.9 GM/DL (11.6-15.3); MEAN CELL VOLUME 72.4 FL (80.0-100.0); MEAN CORPUSCULAR HGB CONC 30.4 % (32.0-36.0); PLATELET COUNT 286 TH/MM3 (150-450); RED BLOOD COUNT 4.94 MIL/MM3 (4.00-5.30); RED CELL DISTRIBUTION WIDTH 18.1 % (11.6-17.2)
[2017-11-12 05:44] LABS: BICARBONATE 23.8 MEQ/L (21.0-32.0); CALCIUM 8.3 MG/DL (8.5-10.1); CREATININE 1.02 MG/DL (0.50-1.00); MAGNESIUM 2.1 MG/DL (1.5-2.5); PHOSPHORUS 4.1 MG/DL (2.5-4.9)
[2017-11-12] MEDS: CHLORHEXIDINE 0.12% (ORAL KIT) 15 ML CUP MT SCH ×2 (08:00→20:51)
[2017-11-12] MEDS: INSULIN ASPART SUPPLEMENTAL SCALE SQ SCH ×4 (08:00→21:00)
[2017-11-12] MEDS: ASPIRIN 81 MG CHEW TAB PO SCH (08:01)
[2017-11-12] MEDS: FUROSEMIDE 40 MG TAB PO SCH (08:01)
[2017-11-12] MEDS: CLOPIDOGREL 75 MG TAB PO SCH (08:02)
[2017-11-12] MEDS: FAMOTIDINE 20 MG TAB PO SCH ×2 (08:02→20:50)
[2017-11-12] MEDS: NYSTATIN 100,000 UNIT/GM CREAM 15 GM TOPICAL SCH ×2 (08:02→20:52)
[2017-11-12] MEDS: SERTRALINE HCL 100 MG TAB PO SCH (08:02)
[2017-11-12] MEDS: FERROUS SULFATE 325 MG (65 MG ELEMENTAL IRON) TAB PO SCH ×2 (08:02→20:50)
[2017-11-12] MEDS ORDERED: Vancomycin Consult Pharmacy 1 EA OTHER SCH (08:15)
--- NOTE | 2017-11-12 08:20 | HHI.FPPN ---
Subjective Remarks Patient is doing well with weaning trials/CPAP. Precedex started to optimize weaning process. No acute issues overnight. Objective Vitals Vital Signs Date Time Temp Pulse Resp B/P (MAP) Pulse Ox O2 Delivery O2 Flow Rate FiO2 11/12/17 06:44 40 11/12/17 06:00 75 11/12/17 05:15 100 40 11/12/17 04:00 40 11/12/17 04:00 74 11/12/17 04:00 98.9 74 18 129/76 (93) 99 11/12/17 02:08 100 40 11/12/17 02:00 75 11/12/17 00:04 100 40 11/12/17 00:00 99.1 84 18 141/81 (101) 100 11/12/17 00:00 84 11/12/17 00:00 40 11/11/17 22:00 81 11/11/17 20:13 100 40 11/11/17 20:00 75 11/11/17 20:00 99.2 75 18 122/61 (81) 100 11/11/17 20:00 40 11/11/17 18:00 82 11/11/17 17:30 83 18 134/78 (96) 99 11/11/17 17:00 94 20 132/80 (97) 99 11/11/17 16:31 86 18 116/57 (76) 99 11/11/17 16:00 99.0 97 18 103/66 (78) 100 11/11/17 16:00 40 11/11/17 16:00 97 11/11/17 15:24 40 11/11/17 15:18 94 40 11/11/17 15:18 40 11/11/17 14:00 81 11/11/17 13:00 79 18 87/52 (64) 97 11/11/17 12:30 77 18 102/55 (71) 97 11/11/17 12:00 80 11/11/17 12:00 40 11/11/17 12:00 99.0 80 0 106/54 (71) 98 11/11/17 11:37 98 40 11/11/17 10:00 86 11/11/17 09:30 91 18 88/51 (63) 97 11/11/17 09:11 20 11/11/17 09:02 35 11/11/17 09:02 97 40 11/11/17 09:01 96 18 109/55 (73) 97 11/11/17 08:31 95 18 141/81 (101) 97 I/O 11/11/17 11/11/17 11/11/17 11/12/17 11/12/17 11/12/17 07:00 15:00 23:00 07:00 15:00 23:00 Intake Total 533 ml 988 ml 877 ml Output Total 1325 ml 1800 ml 2450 ml Balance -792 ml -812 ml -1573 ml Intake Oral 0 ml IV Total 217 ml 828 ml 350 ml Tube Feeding 116 ml 130 ml 437 ml Other 200 ml 30 ml 90 ml Output Urine Total 1325 ml 1800 ml 2450 ml # Bowel Movements 0 0 0 Result Diagram: 11/12/1743911/12/17439 Objective Remarks O. CONSTITUTIONAL/GEN: Morbidly obese woman sedated and on intubation. More alert today, rouses to tactile stimulation. EYES: closed. ENT: Intubated LUNGS: Referred upper airway sounds. CARDIOVASCULAR: RR, heart sounds distant due to body habitus. GI/ABD: obese and protuberant. SKIN: color normal, no rashes noted. HEME/LYMPH: no bruising, petechia. MUSC: Right lower extremity is bandaged w/gauze and shows deformity of the right toes, muscle atrophy and hyperpigmentation of the leg. Some hyperpigmentation seen at the ankle of the left foot. Stable from yesterday's exam. A/P Assessment and Plan 66 y/o F w/hx of respiratory failure requiring intubation, COPD, CHF, and morbid obesity admitted for COPD exacerbation. Intubated on 11/09 for respiratory failure. Critical Care consulted, appreciate assistance in management. Prognosis is poor at this time. Pulmonology and palliative care consulted to address long-term planning. Discharge Planning Clinical improvement pending. Prognosis poor. Palliative consulted, appreciate findings: designated healthcare surrogate is Melissa Page (her sister) and her alternate HCS is (her brother) Chito Page. Remain aggressive for now. Problem List: (1) Respiratory failure ICD Codes: J96.90 - Respiratory failure, unspecified, unspecified whether with hypoxia or hypercapnia Plan: Intubated (11/10-) Spoke to Dr. Geronimo (CC) today about management below. Causes: Poorly controlled COPD v HCAP CXR today unchanged, showing bilateral pulmonary opacities. Blood cx +stap ( coagulase negative) Sputum cx staph + On Precedex and con't CPAP weaning trials today. No solumedrol at this time. Vanc and Zosyn Day #3 (initiated 11/10) Procalcitonin level slightly elevated ID consulted, appreciate recs to con't current therapy and f/u cx sensitivities Pulm consulted, con't current therapy, bronchodilator prn (2) Acute renal failure ICD Codes: N17.9 - Acute kidney failure, unspecified Status: Chronic Plan: Baseline Cr 0.6-0.9. GFR baseline 90-100. Likely pre-renal 2/2 Improving CMP in the AM Avoid nephrotoxic agents (ASA, lovenox, etc) (3) CHF (congestive heart failure) ICD Codes: I50.9 - CHF (congestive heart failure) Status: Chronic Plan: STABLE Takes home Lasix, lisinopril, isosorbide dinitrate PO Con't Lasix 40 mg daily Anti-hypertensives held at this time due to low BP (4) Leg wound, right ICD Codes: S81.801A - Leg wound, right Status: Chronic Plan: STABLE Hx of MRSA positive infxn Hx of childhood injury, on disability Wound ostomy consulted, appreciate recs (5) Sacral decubitus ulcer, stage II ICD Codes: L89.152 - Pressure ulcer of sacral region, stage 2 Plan: STABLE Pressure ulcer prevention Wound ostomy nurse consulted for recs, appreciate assistance (6) COPD (chronic obstructive pulmonary disease) ICD Codes: J44.9 - COPD (chronic obstructive pulmonary disease) Status: Chronic Plan: Home: Duonebs TID, Symbicort 2 puffs BID Currently intubated Will resume duoneb/alb if needed after extubation (7) Sleep apnea ICD Codes: G47.30 - Sleep apnea, unspecified Status: Chronic Plan: Requires CIPAP while asleep (8) Diabetes mellitus ICD Codes: E11.9 - Type 2 diabetes mellitus without complications Status: Chronic Plan: Home: Novolog SS and lantus 10 units, sitagliptin 100 mg daily Currently trying to achieve better control High dose SSI 10 units lantus BID (9) Chronic leg pain ICD Codes: M79.606 - Pain in leg, unspecified; G89.29 - Other chronic pain Plan: Home med oxycodone 5 mg and Gabapentin held to prevent further drowsiness and respiratory compromise Tylenol and Percocet PRN for pain (10) Coronary artery disease ICD Codes: I25.10 - Atherosclerotic heart disease of [place] coronary artery without angina pectoris Status: Chronic Plan: Con't home plavix and atorvastatin Hold ASA (11) Anxiety ICD Codes: F41.9 - Anxiety disorder, unspecified Plan: Con't home Ativan TID PRN (12) Depression ICD Codes: F32.9 - Major depressive disorder, single episode, unspecified Status: Chronic Plan: con't home zoloft daily (13) Iron deficiency anemia ICD Codes: D50.9 - Iron deficiency anemia, unspecified Plan: Con't ferrous sulfate Laxatives and stool softeners PRN (14) FEN Plan: Fluids: none for now, careful to avoid fluid overload Electrolytes: none Nutrition: Tube feeds @50 mls/hr, high protein DVT prophy: Heparin GI prophy: Pepcid Problem Qualifiers (1) Respiratory failure: Qualified Codes: J96.01 - Acute respiratory failure with hypoxia (2) Acute renal failure: Qualified Codes: N17.9 - Acute kidney failure, unspecified (3) CHF (congestive heart failure): Qualified Codes: I50.9 - Heart failure, unspecified (4) Leg wound, right: Qualified Codes: S81.801A - Unspecified open wound, right lower leg, initial encounter (5) COPD (chronic obstructive pulmonary disease): Qualified Codes: J44.9 - Chronic obstructive pulmonary disease, unspecified (6) Sleep apnea: Qualified Codes: G47.30 - Sleep apnea, unspecified (7) Diabetes mellitus: Qualified Codes: E11.8 - Type 2 diabetes mellitus with unspecified complications (8) Chronic leg pain: Qualified Codes: M79.604 - Pain in right leg; M79.605 - Pain in left leg; G89.29 - Other chronic pain (9) Coronary artery disease: (10) Depression: Qualified Codes: F32.9 - Major depressive disorder, single episode, unspecified Ksenia Brunner MD R1 Nov 12, 2017 08:20
--- NOTE | 2017-11-12 08:54 | HHI.CCPN ---
Subjective Remarks/Hospital Course 66-year-old morbidly obese female with history of COPD on 3 L nasal cannula home O2, obesity hypoventilation syndrome, CHF, CAD (on plavix) and sleep apnea admitted with shortness of breath and hypoxia. Per chart review the patient's sister states that recently, CPAP machine has not been working and that patient had been complaining about it. Last night, machine was malfunctioning again, and patient awakened in the middle of the night with SOB. She was found to be hypoxemic with saturation in 70s-80s. He was initially placed on BiPAP with no improvement and worsening hypercarbic respiratory acidosis. Patient was intubated for acute hypercapnic respiratory failure in the ICU. Subjective: 11/10: The patient remains intubated and sedated. Endotracheal tube retracted several centimeters bilateral breath sounds equal. Patient continues on propofol and fentanyl for sedation. 11/11: Afebrile. No acute issues overnight. The patient's glucose level remains elevated. Moderate dose insulin sliding scale initiated. Discussion with the daughter, requesting definition of goals of care. Palliative care has been consult. CPAP trials were initiated, were unsuccessful today. Pulmonology has been consulted. 11/12: Afebrile. The patient was placed on high dose sliding scale last night, glucose levels remain elevated. Levimir 10u BID added to medication regimen. The patient has been placed on Precedex to facilitate ventilator weaning process and tolerated CPAP for approximately 3 hours last evening. Objective Vital Signs Date Time Temp Pulse Resp B/P (MAP) Pulse Ox O2 Delivery O2 Flow Rate FiO2 11/12/17 08:20 100 35 11/12/17 08:00 74 11/12/17 08:00 98.6 18 11/12/17 04:00 129/76 (93) 11/09/17 20:56 BiPAP 11/09/17 10:00 4.00 Intake and Output 11/12/17 11/12/17 11/13/17 08:00 16:00 00:00 Intake Total 877 ml Output Total 2450 ml Balance -1573 ml Result Diagram: 11/12/17 0440 11/12/17 0440 Imaging Last 24 hours Impressions Chest X-Ray 11/09/17 0912 Signed Impressions: CONCLUSION: Patchy basilar airspace disease. Objective Remarks GENERAL: Morbidly obese female in intubated and sedated SKIN: Warm and dry. HEAD: Normocephalic. EYES: No scleral icterus. No injection or drainage. NECK: Supple, trachea midline. No JVD or lymphadenopathy. CARDIOVASCULAR: Regular rate and rhythm without murmurs, gallops, or rubs. RESPIRATORY: Breath sounds equal bilaterally. No accessory muscle use. GASTROINTESTINAL: Abdomen soft, non-tender, obese nondistended. MUSCULOSKELETAL: No cyanosis, or edema. BACK: Nontender without obvious deformity. NEURO EXAM: RASS -2. On Precedex infusion. Intermittently opens eyes to voice, follows simple commands, oriented to person. No focal deficits A/P Assessment and Plan Plan by systems: Neurologic: Depression disorder Peripheral neuropathy Anxiety Sertraline Lorazepam Propofol and fentanyl infusion has been discontinued 11/11 Precedex infusion to maintain ventilator synchrony/sedation/analgesia Daily sedation vacation Respiratory: Acute on chronic respiratory failure History of HCAP 08/27/17 COPD OHS/ ARSEN DuoNeb scheduled and as needed Budesonide/ Formoterol Fumarate 11/11 Pulmonology consulted Mechanical ventilation Vent bundle SBT daily Cardiovascular: Chronic diastolic heart failure History of dyslipidemia History of right iliac artery stent placement Essential hypertension CAD Continue Lasix 40 mg/day Continue home dosing Plavix, aspirin and atorvastatin Antihypertensives currently on hold at this time, resume when clinically indicated Renal: CYNTHIA -- Strict I/Os . Maintain Wise catheter FEN/GI: Electrolyte derangement Hypoalbuminemia Morbid obesity Mild protein calorie malnutrition Monitor BMP Albumin level 3.2 Dietary consult for tube feeds Heme/ID: Anemia Bacteremia gram-positive 11/10-blood culture gram-positive cocci Follow-up urine and sputum culture Iron supplement-ferrous sulfate 325 mg twice daily Follow-up pro calcitonin level Endocrine: Diabetes mellitus Sliding scale insulin per ICU protocol. Increase to medium dose sliding scale Glucose monitoring per ICU protocol -- SSI Prophylaxis: GI Prophylaxis Famotidine BID DVT Prophylaxis -- SCDs Heparin 5000 SQ twice daily Lines: Peripheral IVs 2. Central line if indicated Dispo: my billing statement This patient remains critically ill with one or more organ systems which are or may become a threat to life. I have spent in excess of 30 minutes discontinuously in the care and management of this patient. This time is exclusive of procedures, and includes, but is not limited to, evaluation of the patient, review of the medical record, discussions with family, consultants, nursing staff, or respiratory therapy, and documentation in the medical record. Palliative care has been consulted after discussion with the daughter to define goals of care. Physician Julienne Singh MD Nov 12, 2017 08:54
[2017-11-12] MEDS ORDERED: LACTULOSE SYRUP 20 GM/30 ML CUP PO PRN (09:00)
[2017-11-12] MEDS: ARTIFICIAL TEAR OPTH EACH EYE SCH ×2 (09:00→20:51)
[2017-11-12] MEDS: INSULIN DETEMIR 100 UNITS/ML VIAL SQ SCH ×2 (09:00→20:52)
[2017-11-12] MEDS ORDERED: MAGNESIUM HYDROXIDE SUSP 30 ML CUP PO PRN (09:00)
[2017-11-12] MEDS: SODIUM CHLORIDE 0.9% FLUSH 10 ML FLUSH IV FLUSH SCH ×2 (09:00→20:51)
[2017-11-12] MEDS: BUDESONIDE-FORMOTEROL 160/4.5 MCG INHALER INH SCH ×2 (09:00→20:51)
[2017-11-12] MEDS: DOCUSATE SODIUM 50 MG/SENNA 8.6 MG TAB PO SCH ×2 (09:00→20:50)
[2017-11-12] MEDS ORDERED: BISACODYL 10 MG SUPP RECTAL PRN (09:00)
[2017-11-12] MEDS: LORATADINE 10 MG TAB PO SCH (09:00)
[2017-11-12] MEDS ORDERED: SENNOSIDES 8.6 MG TAB PO PRN (09:00)
[2017-11-12] MEDS ORDERED: GLUCAGON 1 MG/ML VIAL OTHER PRN (09:15)
[2017-11-12] MEDS ORDERED: DEXTROSE 50% IN WATER 50 ML VIAL(D50) IV PUSH PRN (09:15)
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
[2017-11-12] MEDS: HEPARIN SODIUM - SQ 10,000 UNITS/ML VIAL SQ SCH (13:06)
[2017-11-12] MEDS: VANCOMYCIN INJ 1,800 MG in SODIUM CHLORID 0.9% 500 ML INJ 500 ML IV SCH (17:17)
--- NOTE | 2017-11-12 18:17 | HHI.IDPN ---
Subjective Subjective Remarks remians on vent tolerates CPAP sputum clx growing MRSA afebrile Antibiotics vanco zosyn Allergies: Coded Allergies: *MDRO Multi-Drug Resistant Organism (Verified Adverse Reaction, Unknown, MRSA, 11/09/17) MRSA PCR positive - 06/28/2015 & 06/03/16 Objective . Vital Signs Date Time Temp Pulse Resp B/P (MAP) Pulse Ox O2 Delivery O2 Flow Rate FiO2 11/12/17 18:00 74 11/12/17 16:23 100 35 11/12/17 16:00 98.6 71 18 99/60 (73) 99 11/12/17 16:00 74 11/12/17 16:00 40 11/12/17 14:00 74 11/12/17 12:49 100 40 11/12/17 12:00 74 11/12/17 12:00 98.6 76 18 100/59 (73) 99 11/12/17 12:00 40 11/12/17 10:00 74 11/12/17 08:20 100 35 11/12/17 08:00 40 11/12/17 08:00 74 11/12/17 08:00 98.6 74 18 99 11/12/17 06:44 40 11/12/17 06:00 75 11/12/17 05:15 100 40 11/12/17 04:00 40 11/12/17 04:00 74 11/12/17 04:00 98.9 74 18 129/76 (93) 99 11/12/17 02:08 100 40 11/12/17 02:00 75 11/12/17 00:04 100 40 11/12/17 00:00 99.1 84 18 141/81 (101) 100 11/12/17 00:00 84 11/12/17 00:00 40 11/11/17 22:00 81 11/11/17 20:13 100 40 11/11/17 20:00 75 11/11/17 20:00 99.2 75 18 122/61 (81) 100 11/11/17 20:00 40 11/12/17 11/12/17 11/13/17 15:00 23:00 07:00 Intake Total 50 ml 250 ml Balance 50 ml 250 ml IV Total 50 ml 250 ml . Laboratory Tests Test 11/11/17 05:15 11/12/17 04:40 White Blood Count 10.1 TH/MM3 13.0 TH/MM3 Red Blood Count 4.52 MIL/MM3 4.94 MIL/MM3 Hemoglobin 10.0 GM/DL 10.9 GM/DL Hematocrit 33.3 % 35.8 % Mean Corpuscular Volume 73.5 FL 72.4 FL Mean Corpuscular Hemoglobin 22.2 PG 22.0 PG Mean Corpuscular Hemoglobin Concent 30.2 % 30.4 % Red Cell Distribution Width 18.6 % 18.1 % Platelet Count 280 TH/MM3 286 TH/MM3 Mean Platelet Volume 9.0 FL 9.0 FL Neutrophils (%) (Auto) 76.3 % Lymphocytes (%) (Auto) 12.7 % Monocytes (%) (Auto) 10.3 % Eosinophils (%) (Auto) 0.3 % Basophils (%) (Auto) 0.4 % Neutrophils # (Auto) 7.7 TH/MM3 Lymphocytes # (Auto) 1.3 TH/MM3 Monocytes # (Auto) 1.0 TH/MM3 Eosinophils # (Auto) 0.0 TH/MM3 Basophils # (Auto) 0.0 TH/MM3 CBC Comment AUTO DIFF Differential Comment AUTO DIFF CONFIRMED Laboratory Tests Test 11/11/17 05:15 11/12/17 04:40 Blood Urea Nitrogen 32 MG/DL 21 MG/DL Creatinine 1.24 MG/DL 1.02 MG/DL Random Glucose 237 MG/DL 347 MG/DL Calcium Level 8.3 MG/DL 8.3 MG/DL Phosphorus Level 1.4 MG/DL 4.1 MG/DL Magnesium Level 2.5 MG/DL 2.1 MG/DL Sodium Level 142 MEQ/L 135 MEQ/L Potassium Level 4.2 MEQ/L 3.7 MEQ/L Chloride Level 105 MEQ/L 100 MEQ/L Carbon Dioxide Level 27.2 MEQ/L 23.8 MEQ/L Anion Gap 10 MEQ/L 11 MEQ/L Estimat Glomerular Filtration Rate 53 ML/MIN 66 ML/MIN Procalcitonin 0.25 ng/mL Microbiology Date/Time Source Procedure Growth Status 11/10/17 18:00 Sputum Endotracheal Gram Stain - Final Resulted 11/10/17 18:00 Sputum Culture - Preliminary S. Aureus Mrsa Resulted Imaging Last Impressions Chest X-Ray 11/12/17 0600 Signed Impressions: CONCLUSION: No significant interval change with persistent patchy bilateral pulmonary opaci ty and cardiac silhouette enlargement. Physical Exam CONSTITUTIONAL/GENERAL: This is an adequately nourished patient, in no apparent distress. TUBES/LINES/DRAINS: CARDIOVASCULAR: Regular rate and rhythm without murmurs, gallops, or rubs. No JVD. Peripheral pulses symmetric. RESPIRATORY/CHEST: Symmetric, unlabored respirations. Clear to auscultation. Breath sounds equal bilaterally. No wheezes, rales, or rhonchi. GASTROINTESTINAL: Abdomen soft, non-tender, nondistended. No hepato-splenomegaly , or palpable masses. No guarding. Bowel sounds present. GENITOURINARY: Without palpable bladder distension. Wise catheter in place. MUSCULOSKELETAL: Extremities without clubbing, cyanosis, or edema. No joint tenderness or effusion noted. No calf tenderness. No mottling or clubbing. Wound R LE, dressin g in place NEUROLOGICAL: sedated, unresponsive PSYCHIATRIC: unable to assess Assessment & Plan Remarks Pt with COPD presentes with Hypercapnic acute resp failure VDRF, tolerating CPAP B/l pulm infiltrates - PNA, - MRSA Chronic RLE wound, MRSA Coag neg staph bacteremia, 1/ - doubt clinical significance depression. On zoloft. CAn't use zyvox cont vancomycin dc zosyn fu clx untill final dw Angeles Parry MD Nov 12, 2017 18:17
[2017-11-12] MEDS: ATORVASTATIN 40 MG TAB PO SCH (20:50)
[2017-11-13] VITALS (17 sets, daily range): BP systolic 89–116; BP diastolic 52–73; PULSE 65–80; RESP 18–21; TEMP 98.1–100; O2SAT 98–100
[2017-11-13] MEDS: HEPARIN SODIUM - SQ 10,000 UNITS/ML VIAL SQ SCH ×2 (01:11→12:44)
[2017-11-13] MEDS: DEXMEDETOMIDINE INJ 1,000 MCG in SODIUM CHLOR 0.9% 250 ML INJ 240 ML IV PRN (02:59)
[2017-11-13] MEDS: RESP: ALBUTEROL 2.5 MG/IPRATROPIUM 0.5 MG NEB (SCH) INH ×3 (03:16→08:07)
[2017-11-13] MEDS: CHLORHEXIDINE GLUCONATE 2 % 1 PACK (2 CLOTHS)(taper/protocol) TOPICAL SCH (04:00)
[2017-11-13 04:04] LABS: HEMATOCRIT 33.8 % (35.0-46.0); HEMOGLOBIN 10.1 GM/DL (11.6-15.3); MEAN CELL VOLUME 72.7 FL (80.0-100.0); MEAN CORPUSCULAR HEMOGLOBIN 21.8 PG (27.0-34.0); MEAN PLATELET VOLUME 9.1 FL (7.0-11.0); PLATELET COUNT 278 TH/MM3 (150-450); RED BLOOD COUNT 4.65 MIL/MM3 (4.00-5.30); RED CELL DISTRIBUTION WIDTH 17.8 % (11.6-17.2); WHITE BLOOD COUNT 12.8 TH/MM3 (4.0-11.0)
[2017-11-13 04:32] LABS: BICARBONATE 23.4 MEQ/L (21.0-32.0); CALCIUM 8.2 MG/DL (8.5-10.1); CREATININE 0.92 MG/DL (0.50-1.00); MAGNESIUM 2.5 MG/DL (1.5-2.5); PHOSPHORUS 3.6 MG/DL (2.5-4.9)
--- NOTE | 2017-11-13 06:06 | RADRPT ---
EXAM DATE: 11/13/2017 5:57 AM EDT AGE/SEX: 66 years / Female INDICATIONS: Shortness of breath, possible pulmonary disease. CLINICAL DATA: This is the patient's subsequent encounter. Patient reports that signs and symptoms h ave been present for 4 - 6 days and indicates a pain score of Nonresponsive. MEDICAL/SURGICAL HISTORY: Hypertension. Cardiovascular disease. Chronic obstructive pulmonary disease. Diabetes Hysterectomy. Tubal ligation. [place] [facility] [place]. . FINDINGS: Single AP view of the chest. Endotracheal tube and nasogastric tube remain in place. Cardiac silhouet te is enlarged but unchanged. Bilateral pulmonary opacity unchanged. No evidence of pleural effusion or pneumothorax. CONCLUSION: No significant interval change with persistent prominent cardiac silhouette enlargement and mild bila teral pulmonary opacity. Electronically signed by: Tommy Pryor MD 11/13/2017 6:04 AM EDT
[2017-11-13] MEDS: INSULIN ASPART SUPPLEMENTAL SCALE SQ SCH ×4 (07:56→21:00)
[2017-11-13] MEDS: INSULIN DETEMIR 100 UNITS/ML VIAL SQ SCH ×3 (07:57→21:00)
[2017-11-13] MEDS: ASPIRIN 81 MG CHEW TAB PO SCH (07:58)
[2017-11-13] MEDS: FUROSEMIDE 40 MG TAB PO SCH (07:58)
[2017-11-13] MEDS: CLOPIDOGREL 75 MG TAB PO SCH (07:58)
[2017-11-13] MEDS: LORATADINE 10 MG TAB PO SCH (07:58)
[2017-11-13] MEDS: FERROUS SULFATE 325 MG (65 MG ELEMENTAL IRON) TAB PO SCH ×2 (07:58→21:21)
[2017-11-13] MEDS: DOCUSATE SODIUM 50 MG/SENNA 8.6 MG TAB PO SCH (07:58)
[2017-11-13] MEDS: CHLORHEXIDINE 0.12% (ORAL KIT) 15 ML CUP MT SCH ×2 (07:59→20:00)
[2017-11-13] MEDS: SERTRALINE HCL 100 MG TAB PO SCH (07:59)
[2017-11-13] MEDS: NYSTATIN 100,000 UNIT/GM CREAM 15 GM TOPICAL SCH ×2 (07:59→21:00)
[2017-11-13] MEDS: FAMOTIDINE 20 MG TAB PO SCH ×2 (07:59→21:21)
--- NOTE | 2017-11-13 08:43 | HHI.FPPN ---
Subjective Remarks Has been on CPAP since 5 am this morning. FiO2 35, PEEP 5. On soft restraints. No problems overnight. BP 98/66-103/66. Has been constipated for the last couple days. Stool softener and laxatives added to orders yesterday. CXR stable since yesterday. Patient is able to respond w/nodding, shaking head, and smiling in response to questions. Denies any pain. (Ksenia Brunner MD R1) Objective Vitals Vital Signs Date Time Temp Pulse Resp B/P (MAP) Pulse Ox O2 Delivery O2 Flow Rate FiO2 11/13/17 08:07 100 35 11/13/17 06:00 69 11/13/17 05:30 35 11/13/17 05:30 40 11/13/17 04:00 99.2 70 18 98/66 (77) 100 11/13/17 04:00 70 11/13/17 04:00 40 11/13/17 03:16 100 35 11/13/17 02:00 65 11/13/17 00:00 99.1 66 21 99/65 (76) 100 11/13/17 00:00 66 11/13/17 00:00 40 11/12/17 23:04 100 35 11/12/17 22:00 67 11/12/17 20:00 67 11/12/17 20:00 40 11/12/17 20:00 99.7 67 18 103/66 (78) 100 11/12/17 19:55 100 35 11/12/17 18:00 74 11/12/17 16:23 100 35 11/12/17 16:00 98.6 71 18 99/60 (73) 99 11/12/17 16:00 74 11/12/17 16:00 40 11/12/17 14:00 74 11/12/17 12:49 100 40 11/12/17 12:00 74 11/12/17 12:00 98.6 76 18 100/59 (73) 99 11/12/17 12:00 40 11/12/17 10:00 74 I/O 11/12/17 11/12/17 11/12/17 11/13/17 11/13/17 11/13/17 07:00 15:00 23:00 07:00 15:00 23:00 Intake Total 877 ml 50 ml 1468 ml 1064 ml Output Total 2450 ml 2000 ml 675 ml Balance -1573 ml 50 ml -532 ml 389 ml IV Total 350 ml 50 ml 818 ml 250 ml Tube Feeding 437 ml 550 ml 664 ml Other 90 ml 100 ml 150 ml Output Urine Total 2450 ml 2000 ml 675 ml # Bowel Movements 0 0 (Ksenia Brunner MD R1) Result Diagram: 11/13/17 0304 11/13/17 0304 Objective Remarks O. CONSTITUTIONAL/GEN: Morbidly obese woman intubated. Opens eyes spontaneously. EYES: closed. ENT: Intubated LUNGS: Referred upper airway sounds, clear. CARDIOVASCULAR: RR, heart sounds distant due to body habitus. GI/ABD: obese and protuberant. SKIN: color normal, no rashes noted. HEME/LYMPH: no bruising, petechia. MUSC: Right lower extremity is bandaged w/gauze and shows deformity of the right toes, muscle atrophy and hyperpigmentation of the leg. Some hyperpigmentation seen at the ankle of the left foot. Stable from yesterday's exam. (Ksenia Brunner MD R1) A/P Assessment and Plan 66 y/o F w/hx of respiratory failure requiring intubation, COPD, CHF, and morbid obesity admitted for COPD exacerbation. Intubated on 11/09 for respiratory failure. Critical Care consulted, appreciate assistance in management. Prognosis is poor at this time. Pulmonology and palliative care consulted to address long-term planning. Discharge Planning Clinical improvement pending. Prognosis poor. Palliative consulted, appreciate findings: designated healthcare surrogate is Melissa Page (her sister) and her alternate HCS is (her brother) Chito Page. Remain aggressive for now. (Ksenia Brunner MD R1) Attending Attestation Pt. seen, discussed with team and with her nurse, who reports she had a very large BM this a.m. and thereafter bottomed her pressure and was felt to have had a vaso-vagal episode. Dr. Geronimo attempted an art. line without success. She is now back on the vent after having been on cpap earlier today. Patient seen and examined. Case reviewed and discussed with the resident team. Agree with plan of care as discussed with me and documented in the resident note. (Brandi Bush MD) Problem List: (1) Respiratory failure ICD Codes: J96.90 - Respiratory failure, unspecified, unspecified whether with hypoxia or hypercapnia Plan: Intubated (11/10-) Causes: Poorly controlled COPD v HCAP CXR today unchanged, showing bilateral pulmonary opacities. Blood cx (11/09) +stap Haemolyticus Sputum cx (11/10) MRSA + Spoke to Dr. Geronimo () today about management below: On Precedex and CPAP (FiO2 35, PEEP 5). No solumedrol at this time. ID consulted. Appreciate recs 11/12: Vanc Day #4 (initiated 11/10) Zosyn DC'd (11/10-11/12) Pulm consulted. Per recs 11/11, con't current therapy, bronchodilator prn. Will touch base today to see if pt requires initiation of solumedrol at some point. (2) CHF (congestive heart failure) ICD Codes: I50.9 - CHF (congestive heart failure) Status: Chronic Plan: STABLE Takes home Lasix, lisinopril, isosorbide dinitrate PO Con't Lasix 40 mg daily Anti-hypertensives held at this time due to low BP (3) Leg wound, right ICD Codes: S81.801A - Leg wound, right Status: Chronic Plan: STABLE Hx of MRSA positive infxn Hx of childhood injury, on disability Wound ostomy consulted, appreciate recs (4) Sacral decubitus ulcer, stage II ICD Codes: L89.152 - Pressure ulcer of sacral region, stage 2 Plan: STABLE Pressure ulcer prevention Wound ostomy nurse consulted for recs, appreciate assistance (5) COPD (chronic obstructive pulmonary disease) ICD Codes: J44.9 - COPD (chronic obstructive pulmonary disease) Status: Chronic Plan: Home: Duonebs TID, Symbicort 2 puffs BID Currently intubated Will resume duoneb/alb if needed after extubation (6) Sleep apnea ICD Codes: G47.30 - Sleep apnea, unspecified Status: Chronic Plan: Requires CIPAP while asleep (7) Diabetes mellitus ICD Codes: E11.9 - Type 2 diabetes mellitus without complications Status: Chronic Plan: Home: Novolog SS and lantus 10 units, sitagliptin 100 mg daily Bedside glucose above 300 Fasting glucose 215 Keep glucose <180 High dose SSI Increase to 15 units lantus BID (8) Chronic leg pain ICD Codes: M79.606 - Pain in leg, unspecified; G89.29 - Other chronic pain Plan: Home med oxycodone 5 mg and Gabapentin held to prevent further drowsiness and respiratory compromise Tylenol and Percocet PRN for pain (9) Coronary artery disease ICD Codes: I25.10 - Atherosclerotic heart disease of [place] coronary artery without angina pectoris Status: Chronic Plan: Con't home plavix and atorvastatin Hold ASA (10) Anxiety ICD Codes: F41.9 - Anxiety disorder, unspecified Plan: Con't home Ativan TID PRN (11) Depression ICD Codes: F32.9 - Major depressive disorder, single episode, unspecified Status: Chronic Plan: con't home zoloft daily (12) Iron deficiency anemia ICD Codes: D50.9 - Iron deficiency anemia, unspecified Status: Chronic Plan: Con't ferrous sulfate Laxatives and stool softeners PRN (13) FEN Plan: Fluids: none for now, careful to avoid fluid overload Electrolytes: none Nutrition: Tube feeds @50 mls/hr, high protein DVT prophy: Heparin GI prophy: Pepcid (Ksenia Brunner MD R1) Problem Qualifiers (1) Respiratory failure: Qualified Codes: J96.01 - Acute respiratory failure with hypoxia (2) CHF (congestive heart failure): Qualified Codes: I50.9 - Heart failure, unspecified (3) Leg wound, right: Qualified Codes: S81.801A - Unspecified open wound, right lower leg, initial encounter (4) COPD (chronic obstructive pulmonary disease): Qualified Codes: J44.9 - Chronic obstructive pulmonary disease, unspecified (5) Sleep apnea: Qualified Codes: G47.30 - Sleep apnea, unspecified (6) Diabetes mellitus: Qualified Codes: E11.8 - Type 2 diabetes mellitus with unspecified complications (7) Chronic leg pain: Qualified Codes: M79.604 - Pain in right leg; M79.605 - Pain in left leg; G89.29 - Other chronic pain (8) Coronary artery disease: (9) Depression: Qualified Codes: F32.9 - Major depressive disorder, single episode, unspecified Ksenia Brunner MD R1 Nov 13, 2017 08:42 Brandi Bush MD Nov 13, 2017 13:46
[2017-11-13] MEDS: SODIUM CHLORIDE 0.9% FLUSH 10 ML FLUSH IV FLUSH SCH ×2 (09:00→21:21)
[2017-11-13] MEDS ORDERED: INSULIN DETEMIR 100 UNITS/ML VIAL SQ SCH ×2 (09:00)
[2017-11-13] MEDS: ARTIFICIAL TEAR OPTH EACH EYE SCH ×2 (09:00→21:00)
[2017-11-13] MEDS: SODIUM CHLOR 0.9% 1000 ML INJ 1,000 ML IV SCH (10:00)
--- NOTE | 2017-11-13 10:28 | HHI.CCPN ---
Subjective Remarks/Hospital Course 66-year-old morbidly obese female with history of COPD on 3 L nasal cannula home O2, obesity hypoventilation syndrome, CHF, CAD (on plavix) and sleep apnea admitted with shortness of breath and hypoxia. Per chart review the patient's sister states that recently, CPAP machine has not been working and that patient had been complaining about it. Last night, machine was malfunctioning again, and patient awakened in the middle of the night with SOB. She was found to be hypoxemic with saturation in 70s-80s. He was initially placed on BiPAP with no improvement and worsening hypercarbic respiratory acidosis. Patient was intubated for acute hypercapnic respiratory failure in the ICU. Subjective: 11/10: The patient remains intubated and sedated. Endotracheal tube retracted several centimeters bilateral breath sounds equal. Patient continues on propofol and fentanyl for sedation. 11/11: Afebrile. No acute issues overnight. The patient's glucose level remains elevated. Moderate dose insulin sliding scale initiated. Discussion with the daughter, requesting definition of goals of care. Palliative care has been consult. CPAP trials were initiated, were unsuccessful today. Pulmonology has been consulted. 11/12: Afebrile. The patient was placed on high dose sliding scale last night, glucose levels remain elevated. Levimir 10u BID added to medication regimen. The patient has been placed on Precedex to facilitate ventilator weaning process and tolerated CPAP for approximately 3 hours last evening. 11/13: Afebrile. This a.m. the patient was noted to be hypotensive after CPAP trials and reinitiation of Precedex infusion. MAP was noted to be in the 50's. Patient is noted to having large bowel movements. The patient received bolus fluids of 1 L with resolution. The patient is awake nodding head to yes and no questions. Objective Vital Signs Date Time Temp Pulse Resp B/P (MAP) Pulse Ox O2 Delivery O2 Flow Rate FiO2 11/13/17 08:07 100 35 11/13/17 06:00 69 11/13/17 04:00 99.2 18 98/66 (77) 11/09/17 20:56 BiPAP 11/09/17 10:00 4.00 Intake and Output 11/13/17 11/13/17 11/14/17 08:00 16:00 00:00 Intake Total 1064 ml Output Total 675 ml Balance 389 ml Result Diagram: 11/13/17 0304 11/13/17 0304 Other Results Microbiology Date/Time Source Procedure Growth Status 11/10/17 18:00 Sputum Endotracheal Gram Stain - Final Complete 11/10/17 18:00 Sputum Culture - Final S. Aureus Mrsa Complete Laboratory Tests Test 11/13/17 06:30 Blood Gas Puncture Site RT RADIAL Blood Gas Patient Temperature 98.6 Blood Gas HCO3 26 mmol/L (22-26) Blood Gas Base Excess 2.4 mmol/L (-2-2) Blood Gas Oxygen Saturation 93 % (90-100) Arterial Blood pH 7.43 (7.380-7.420) Arterial Blood Partial Pressure CO2 40 mmHg (38-42) Arterial Blood Partial Pressure O2 83 mmHg (61-120) Arterial Blood Oxygen Content 14.4 Vol % (12.0-20.0) Arterial Blood Carboxyhemoglobin 1.0 % (0-4) Arterial Blood Methemoglobin 1.2 % (0-2) Blood Gas Hemoglobin 11.0 G/DL (12.0-16.0) Oxygen Delivery Device VENTILATOR Blood Gas Ventilator Setting CPAP15/+5/35% Blood Gas Inspired Oxygen 35 % Imaging Last 24 hours Impressions Chest X-Ray 11/13/17 0600 Signed Impressions: CONCLUSION: No significant interval change with persistent prominent cardiac silhouette enl argement and mild bilateral pulmonary opacity. Last 24 hours Impressions Chest X-Ray 11/09/17 0938 Signed Impressions: CONCLUSION: Patchy basilar airspace disease. Objective Remarks GENERAL: Morbidly obese female in intubated, awake responding to yes and no questions SKIN: Warm and dry. HEAD: Normocephalic. EYES: No scleral icterus. No injection or drainage. NECK: Supple, trachea midline. No JVD or lymphadenopathy. CARDIOVASCULAR: Regular rate and rhythm without murmurs, gallops, or rubs. RESPIRATORY: Breath sounds equal bilaterally. No accessory muscle use. GASTROINTESTINAL: Abdomen soft, non-tender, obese nondistended. MUSCULOSKELETAL: No cyanosis, or edema. Right leg with dressing on wound C/D/I BACK: Nontender without obvious deformity. NEURO EXAM: RASS -2. On Precedex infusion. Intermittently opens eyes to voice, follows simple commands, oriented to person. No focal deficits A/P Problem List: (1) HCAP (healthcare-associated pneumonia) ICD Code: J18.9 - Pneumonia, unspecified organism Assessment and Plan Plan by systems: Neurologic: Depression disorder Peripheral neuropathy Anxiety Sertraline Lorazepam Propofol and fentanyl infusion has been discontinued 11/11 Precedex infusion to maintain ventilator synchrony/sedation/analgesia Daily sedation vacation Respiratory: Acute on chronic respiratory failure History of HCAP 08/27/17 Healthcare associated pneumonia COPD OHS/ ARSEN DuoNeb scheduled and as needed Budesonide/ Formoterol Fumarate 11/11 Pulmonology following Chest x-ray- Mechanical ventilation Vent bundle SBT daily-CPAP trials tolerated for 3 hours today Cardiovascular: Chronic diastolic heart failure History of dyslipidemia History of right iliac artery stent placement Essential hypertension CAD Continue Lasix 40 mg/day Continue home dosing Plavix, aspirin and atorvastatin Antihypertensives currently on hold at this time, resume when clinically indicated Renal: CYNTHIA -- Strict I/Os . Maintain Wise catheter FEN/GI: Electrolyte derangement Hypoalbuminemia Morbid obesity Mild protein calorie malnutrition Diarrhea Monitor BMP Albumin level 3.2 Tube feeds Vital Hi Protein @ 50cc/hr Hold Bowel Regimen Heme/ID: Chronic Anemia Bacteremia gram-positive HCAP [id number] 11/10-blood culture staph hemolyticus Follow-up urine 11/10 sputum culture-MRSA Iron supplement-ferrous sulfate 325 mg twice daily Pro calcitonin level- elevated Obtain C Diff antigen Endocrine: Diabetes mellitus Sliding scale insulin per ICU protocol. Increase to medium dose sliding scale Glucose monitoring per ICU protocol, every 4 hours -- SSI Prophylaxis: GI Prophylaxis Famotidine BID DVT Prophylaxis -- SCDs Heparin 5000 SQ BID Lines: Peripheral IVs 2. Central line if indicated Dispo: my billing statement This patient remains critically ill with one or more organ systems which are or may become a threat to life. I have spent in excess of 38 minutes discontinuously in the care and management of this patient. This time is exclusive of procedures, and includes, but is not limited to, evaluation of the patient, review of the medical record, discussions with family, consultants, nursing staff, or respiratory therapy, and documentation in the medical record. Palliative care has been consulted after discussion with the daughter to define goals of care. Physician Julienne Singh MD Nov 13, 2017 10:28
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
--- NOTE | 2017-11-13 16:10 | EKG ---
Date Performed: 11/13/2017 Time Performed: 14:04:00 PTAGE: 66 years EKG: Sinus rhythm Extensive ST-T changes may be due to myocardial ischemia Abnormal ECG NO PREVIOUS TRACING DOCTOR: Idris Sanz Interpretating Date/Time 11/13/2017 16:09:49
[2017-11-13] MEDS ORDERED: RESP: ALBUTEROL 2.5 MG/IPRATROPIUM 0.5 MG NEB (PRN) NEB (17:15)
[2017-11-13] MEDS: VANCOMYCIN INJ 1,800 MG in SODIUM CHLORID 0.9% 500 ML INJ 500 ML IV SCH (17:36)
[2017-11-13] MEDS ORDERED: PHARMACY ORDERED LAB ONE (17:45)
[2017-11-13] MEDS: RESP: ALBUTEROL 2.5 MG/IPRATROPIUM 0.5 MG NEB (SCH) NEB (19:53)
[2017-11-13] MEDS: BUDESONIDE-FORMOTEROL 160/4.5 MCG INHALER INH SCH (21:00)
[2017-11-13] MEDS: ATORVASTATIN 40 MG TAB PO SCH (21:21)
[2017-11-14] VITALS (18 sets, daily range): BP systolic 110–177; BP diastolic 59–80; PULSE 65–119; RESP 18–28; TEMP 99–99.5; O2SAT 88–100
[2017-11-14] MEDS: HEPARIN SODIUM - SQ 10,000 UNITS/ML VIAL SQ SCH ×2 (01:25→12:59)
[2017-11-14] MEDS: CHLORHEXIDINE GLUCONATE 2 % 1 PACK (2 CLOTHS)(taper/protocol) TOPICAL SCH (04:00)
--- NOTE | 2017-11-14 05:11 | RADRPT ---
EXAM DATE: 11/14/2017 5:00 AM EDT AGE/SEX: 66 years / Female INDICATIONS: Respiratory failure. CLINICAL DATA: This is the patient's subsequent encounter. Patient reports that signs and symptoms h ave been present for 1 week and indicates a pain score of Nonresponsive. MEDICAL/SURGICAL HISTORY: None. None. COMPARISON: [facility] [place], CHEST SINGLE AP, 11/13/2017. . FINDINGS: The ET tube is well placed. Tip of the NG tube appears to be directed into the stomach. The heart siz e is enlarged. There is diffuse increased density seen throughout the lungs being worse on the left. There is degenerative change of the right glenohumeral joint. CONCLUSION: Cardiomegaly. Suspected diffuse consolidation likely related to edema being worse than the left. Some degree of lef t effusion can be considered. Electronically signed by: Chito Church MD 11/14/2017 5:09 AM EDT
[2017-11-14 08:14] LABS: AUTOMATED NEUTROPHIL # 7.5 TH/MM3 (1.8-7.7); BASOPHIL # 0.1 TH/MM3 (0-0.2); BASOPHIL % 0.6 % (0.0-2.0); EOSINOPHIL # 0.1 TH/MM3 (0-0.4); EOSINOPHIL % 1.3 % (0.0-4.0); HEMATOCRIT 31.8 % (35.0-46.0); HEMOGLOBIN 9.7 GM/DL (11.6-15.3); LYMPH % 15.3 % (9.0-44.0); LYMPHOCYTE # 1.6 TH/MM3 (1.0-4.8); MEAN CELL VOLUME 72.4 FL (80.0-100.0); MEAN CORPUSCULAR HEMOGLOBIN 21.9 PG (27.0-34.0); MEAN CORPUSCULAR HGB CONC 30.3 % (32.0-36.0); MONO % 9.1 % (0.0-8.0); MONOCYTE # 0.9 TH/MM3 (0-0.9); NEUT % 73.7 % (16.0-70.0); PLATELET COUNT 289 TH/MM3 (150-450); RED CELL DISTRIBUTION WIDTH 17.7 % (11.6-17.2); WHITE BLOOD COUNT 10.1 TH/MM3 (4.0-11.0)
[2017-11-14] MEDS: FERROUS SULFATE 325 MG (65 MG ELEMENTAL IRON) TAB PO SCH ×2 (08:58→20:18)
[2017-11-14] MEDS: SERTRALINE HCL 100 MG TAB PO SCH (08:58)
[2017-11-14] MEDS: FAMOTIDINE 20 MG TAB PO SCH ×2 (08:59→20:22)
[2017-11-14] MEDS: FUROSEMIDE 40 MG TAB PO SCH (08:59)
[2017-11-14] MEDS: CLOPIDOGREL 75 MG TAB PO SCH (08:59)
[2017-11-14] MEDS: LORATADINE 10 MG TAB PO SCH (09:00)
[2017-11-14] MEDS: INSULIN DETEMIR 100 UNITS/ML VIAL SQ SCH ×2 (09:00→20:22)
[2017-11-14] MEDS: ASPIRIN 81 MG CHEW TAB PO SCH (09:00)
[2017-11-14] MEDS: ARTIFICIAL TEAR OPTH EACH EYE SCH ×2 (09:00→20:18)
[2017-11-14] MEDS: BUDESONIDE-FORMOTEROL 160/4.5 MCG INHALER INH SCH ×2 (09:00→23:18)
[2017-11-14] MEDS: INSULIN ASPART SUPPLEMENTAL SCALE SQ SCH ×3 (09:01→20:16)
[2017-11-14] MEDS: SODIUM CHLORIDE 0.9% FLUSH 10 ML FLUSH IV FLUSH SCH ×2 (09:02→20:18)
[2017-11-14] MEDS: SODIUM CHLOR 0.9% 1000 ML INJ 1,000 ML IV SCH (09:03)
[2017-11-14] MEDS: NYSTATIN 100,000 UNIT/GM CREAM 15 GM TOPICAL SCH ×2 (09:04→20:22)
[2017-11-14] MEDS: CHLORHEXIDINE 0.12% (ORAL KIT) 15 ML CUP MT SCH ×2 (09:04→20:17)
[2017-11-14] MEDS: RESP: ALBUTEROL 2.5 MG/IPRATROPIUM 0.5 MG NEB (SCH) NEB ×3 (10:00→22:00)
[2017-11-14 10:02] LABS: BICARBONATE 23.3 MEQ/L (21.0-32.0); CALCIUM 8.4 MG/DL (8.5-10.1); CREATININE 0.79 MG/DL (0.50-1.00); MAGNESIUM 2.4 MG/DL (1.5-2.5); PHOSPHORUS 2.8 MG/DL (2.5-4.9)
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
--- NOTE | 2017-11-14 15:29 | HHI.IDPN ---
Subjective Subjective Remarks remians on vent failed CPAP afebrile Antibiotics vanco Allergies: Coded Allergies: *MDRO Multi-Drug Resistant Organism (Verified Adverse Reaction, Unknown, MRSA, 11/09/17) MRSA PCR positive - 06/28/2015 & 06/03/16 Objective . Vital Signs Date Time Temp Pulse Resp B/P (MAP) Pulse Ox O2 Delivery O2 Flow Rate FiO2 11/14/17 14:00 98 11/14/17 12:41 100 35 11/14/17 12:00 98 11/14/17 12:00 99.3 98 18 141/59 (86) 100 11/14/17 12:00 35 11/14/17 10:00 119 11/14/17 08:50 100 35 11/14/17 08:00 35 11/14/17 08:00 99.0 86 19 118/68 (85) 100 11/14/17 08:00 86 11/14/17 06:00 72 11/14/17 04:00 80 11/14/17 04:00 99.0 80 18 120/62 (81) 100 11/14/17 04:00 35 11/14/17 03:52 100 35 11/14/17 02:00 80 11/14/17 01:17 100 35 11/14/17 00:00 99.5 83 19 110/59 (76) 100 11/14/17 00:00 35 11/14/17 00:00 83 11/13/17 22:00 79 11/13/17 20:00 35 11/13/17 20:00 100.0 80 18 89/52 (64) 100 11/13/17 20:00 80 11/13/17 19:54 100 35 11/13/17 18:00 72 11/13/17 16:04 98 35 11/13/17 16:00 72 11/13/17 16:00 99.2 76 18 116/57 (76) 100 11/13/17 16:00 40 . Laboratory Tests Test 11/13/17 03:04 11/14/17 06:26 White Blood Count 12.8 TH/MM3 10.1 TH/MM3 Red Blood Count 4.65 MIL/MM3 4.40 MIL/MM3 Hemoglobin 10.1 GM/DL 9.7 GM/DL Hematocrit 33.8 % 31.8 % Mean Corpuscular Volume 72.7 FL 72.4 FL Mean Corpuscular Hemoglobin 21.8 PG 21.9 PG Mean Corpuscular Hemoglobin Concent 30.0 % 30.3 % Red Cell Distribution Width 17.8 % 17.7 % Platelet Count 278 TH/MM3 289 TH/MM3 Mean Platelet Volume 9.1 FL 9.0 FL Neutrophils (%) (Auto) 73.7 % Lymphocytes (%) (Auto) 15.3 % Monocytes (%) (Auto) 9.1 % Eosinophils (%) (Auto) 1.3 % Basophils (%) (Auto) 0.6 % Neutrophils # (Auto) 7.5 TH/MM3 Lymphocytes # (Auto) 1.6 TH/MM3 Monocytes # (Auto) 0.9 TH/MM3 Eosinophils # (Auto) 0.1 TH/MM3 Basophils # (Auto) 0.1 TH/MM3 CBC Comment DIFF FINAL Differential Comment Laboratory Tests Test 11/13/17 03:04 11/13/17 14:31 11/13/17 19:50 11/14/17 06:26 Blood Urea Nitrogen 25 MG/DL 21 MG/DL Creatinine 0.92 MG/DL 0.79 MG/DL Random Glucose 215 MG/DL 234 MG/DL Calcium Level 8.2 MG/DL 8.4 MG/DL Phosphorus Level 3.6 MG/DL 2.8 MG/DL Magnesium Level 2.5 MG/DL 2.4 MG/DL Sodium Level 141 MEQ/L 143 MEQ/L Potassium Level 3.6 MEQ/L 3.5 MEQ/L Chloride Level 107 MEQ/L 109 MEQ/L Carbon Dioxide Level 23.4 MEQ/L 23.3 MEQ/L Anion Gap 11 MEQ/L 11 MEQ/L Estimat Glomerular Filtration Rate 74 ML/MIN 88 ML/MIN Troponin I 0.03 NG/ML 0.02 NG/ML Imaging Last Impressions Chest X-Ray 11/14/17 0600 Signed Impressions: CONCLUSION: Cardiomegaly. Suspected diffuse consolidation likely related to edema being worse than the le ft. Some degree of left effusion can be considered. Physical Exam CONSTITUTIONAL/GENERAL: This is an adequately nourished patient, in no apparent distress. TUBES/LINES/DRAINS: CARDIOVASCULAR: Regular rate and rhythm without murmurs, gallops, or rubs. No JVD. Peripheral pulses symmetric. RESPIRATORY/CHEST: Symmetric, unlabored respirations. Clear to auscultation. Breath sounds equal bilaterally. No wheezes, rales, or rhonchi. GASTROINTESTINAL: Abdomen soft, non-tender, nondistended. No hepato-splenomegaly , or palpable masses. No guarding. Bowel sounds present. GENITOURINARY: Without palpable bladder distension. External catheter in place. MUSCULOSKELETAL: Extremities without clubbing, cyanosis, or edema. No joint tenderness or effusion noted. No calf tenderness. No mottling or clubbing. Wound R LE, dressin g in place NEUROLOGICAL: responsive purposeful PSYCHIATRIC: unable to assess Assessment & Plan Remarks Pt with COPD presentes with Hypercapnic acute resp failure VDRF, tolerating CPAP B/l pulm infiltrates - PNA, - MRSA Chronic RLE wound, MRSA Coag neg staph bacteremia, / - doubt clinical significance depression. On zoloft. CAn't use zyvox cont vancomycin repeat sputum clx and CXR dw Dr Juanpablo Nelson,Angeles Oreilly MD Nov 14, 2017 15:29
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
[2017-11-14] MEDS: DEXMEDETOMIDINE INJ 1,000 MCG in SODIUM CHLOR 0.9% 250 ML INJ 240 ML IV PRN ×2 (17:09→22:50)
[2017-11-14] MEDS: VANCOMYCIN INJ 2,000 MG in SODIUM CHLORID 0.9% 500 ML INJ 500 ML IV SCH (17:10)
--- NOTE | 2017-11-14 17:13 | HHI.CCPN ---
Subjective Remarks/Hospital Course 66-year-old morbidly obese female with history of COPD on 3 L nasal cannula home O2, obesity hypoventilation syndrome, CHF, CAD (on plavix) and sleep apnea admitted with shortness of breath and hypoxia. Per chart review the patient's sister states that recently, CPAP machine has not been working and that patient had been complaining about it. Last night, machine was malfunctioning again, and patient awakened in the middle of the night with SOB. She was found to be hypoxemic with saturation in 70s-80s. He was initially placed on BiPAP with no improvement and worsening hypercarbic respiratory acidosis. Patient was intubated for acute hypercapnic respiratory failure in the ICU. Subjective: 11/10: The patient remains intubated and sedated. Endotracheal tube retracted several centimeters bilateral breath sounds equal. Patient continues on propofol and fentanyl for sedation. 11/11: Afebrile. No acute issues overnight. The patient's glucose level remains elevated. Moderate dose insulin sliding scale initiated. Discussion with the daughter, requesting definition of goals of care. Palliative care has been consult. CPAP trials were initiated, were unsuccessful today. Pulmonology has been consulted. 11/12: Afebrile. The patient was placed on high dose sliding scale last night, glucose levels remain elevated. Levimir 10u BID added to medication regimen. The patient has been placed on Precedex to facilitate ventilator weaning process and tolerated CPAP for approximately 3 hours last evening. 11/13: Afebrile. This a.m. the patient was noted to be hypotensive after CPAP trials and reinitiation of Precedex infusion. MAP was noted to be in the 50's. Patient is noted to having large bowel movements. The patient received bolus fluids of 1 L with resolution. The patient is awake nodding head to yes and no questions. 11/14: The patient continues on CPAP trials this afternoon. The patient continues on the Precedex infusion for ventilator synchrony currently at 0.6 continue to titrate upward. The patient is alert oriented attempting to talk. CPAP trials greater than 1 hour at this time. No further episodes of hypotension. Objective Vital Signs Date Time Temp Pulse Resp B/P (MAP) Pulse Ox O2 Delivery O2 Flow Rate FiO2 11/14/17 15:29 99 35 11/14/17 14:00 98 11/14/17 12:00 99.3 18 141/59 (86) Intake and Output 11/14/17 11/14/17 11/15/17 08:00 16:00 00:00 Intake Total 696 ml Output Total 1150 ml Balance -454 ml Result Diagram: 11/14/17 0611/14/17 06 Imaging Last 24 hours Impressions Chest X-Ray 11/13/17 0600 Signed Impressions: CONCLUSION: No significant interval change with persistent prominent cardiac silhouette enl argement and mild bilateral pulmonary opacity. Last 24 hours Impressions Chest X-Ray 11/09/17 0938 Signed Impressions: CONCLUSION: Patchy basilar airspace disease. Objective Remarks GENERAL: Morbidly obese female in intubated, awake responding to yes and no questions SKIN: Warm and dry. HEAD: Normocephalic. EYES: No scleral icterus. No injection or drainage. NECK: Supple, trachea midline. No JVD or lymphadenopathy. CARDIOVASCULAR: Regular rate and rhythm without murmurs, gallops, or rubs. RESPIRATORY: Breath sounds equal bilaterally. No accessory muscle use. GASTROINTESTINAL: Abdomen soft, non-tender, obese nondistended. MUSCULOSKELETAL: No cyanosis, or edema. Right leg with dressing on wound C/D/I BACK: Nontender without obvious deformity. NEURO EXAM: RASS -2. On Precedex infusion. Intermittently opens eyes to voice, follows simple commands, oriented to person. No focal deficits A/P Problem List: (1) HCAP (healthcare-associated pneumonia) ICD Code: J18.9 - Pneumonia, unspecified organism Assessment and Plan Plan by systems: Neurologic: Depression disorder Peripheral neuropathy Anxiety Sertraline Lorazepam Propofol and fentanyl infusion has been discontinued 11/11 Precedex infusion to maintain ventilator synchrony/sedation/analgesia Daily sedation vacation 11/14 began Xanax 0.5 mg every 6 hours for agitation and anxiety Respiratory: Acute on chronic respiratory failure History of HCAP 08/27/17 Healthcare associated pneumonia COPD OHS/ ARSEN DuoNeb scheduled and as needed Budesonide/ Formoterol Fumarate 11/11 Pulmonology following Mechanical ventilation Vent bundle SBT daily Cardiovascular: Chronic diastolic heart failure History of dyslipidemia History of right iliac artery stent placement Essential hypertension CAD Continue Lasix 40 mg/day Continue home dosing Plavix, aspirin and atorvastatin Antihypertensives currently on hold at this time, resume when clinically indicated Renal: CYNTHIA -- Strict I/Os . Maintain Wise catheter FEN/GI: Electrolyte derangement Hypoalbuminemia Morbid obesity Mild protein calorie malnutrition Diarrhea Monitor BMP Albumin level 3.2 Tube feeds Vital Hi Protein @ 50cc/hr Hold Bowel Regimen- 2/ diarrhea Heme/ID: Chronic Anemia Bacteremia gram-positive HCAP Kgnsxbyye-bqt-snuarsan 11/10-blood culture staph hemolyticus Follow-up urine 11/10 sputum culture-MRSA Iron supplement-ferrous sulfate 325 mg twice daily Pro calcitonin level- elevated Obtain C Diff antigen Endocrine: Diabetes mellitus Sliding scale insulin per ICU protocol. Increase to medium dose sliding scale Glucose monitoring per ICU protocol, every 4 hours -- SSI Prophylaxis: GI Prophylaxis Famotidine BID DVT Prophylaxis -- SCDs Heparin 5000 SQ BID Lines: Peripheral IVs 2. Central line if indicated Dispo: my billing statement This patient remains critically ill with one or more organ systems which are or may become a threat to life. I have spent in excess of 38 minutes discontinuously in the care and management of this patient. This time is exclusive of procedures, and includes, but is not limited to, evaluation of the patient, review of the medical record, discussions with family, consultants, nursing staff, or respiratory therapy, and documentation in the medical record. Palliative care has been consulted after discussion with the daughter to define goals of care. Physician Julienne Singh MD Nov 14, 2017 17:13
[2017-11-14] MEDS: ATORVASTATIN 40 MG TAB PO SCH (20:19)
[2017-11-15] VITALS (17 sets, daily range): BP systolic 121–165; BP diastolic 64–88; PULSE 62–141; RESP 16–24; TEMP 98.8–100.9; O2SAT 94–100
[2017-11-15] MEDS: HEPARIN SODIUM - SQ 10,000 UNITS/ML VIAL SQ SCH ×2 (00:50→12:52)
[2017-11-15] MEDS: RESP: ALBUTEROL 2.5 MG/IPRATROPIUM 0.5 MG NEB (SCH) NEB ×4 (03:15→20:35)
[2017-11-15] MEDS: DEXMEDETOMIDINE INJ 1,000 MCG in SODIUM CHLOR 0.9% 250 ML INJ 240 ML IV PRN ×2 (03:55→20:56)
--- NOTE | 2017-11-15 04:59 | RADRPT ---
EXAM DATE: 11/15/2017 4:53 AM EDT AGE/SEX: 66 years / Female INDICATIONS: Shortness of breath, possible pulmonary disease. CLINICAL DATA: This is the patient's subsequent encounter. Patient reports that signs and symptoms h ave been present for 1 week and indicates a pain score of Nonresponsive. MEDICAL/SURGICAL HISTORY: . Cardiovascular disease. Chronic obstructive pulmonary disease. Diab etes Hysterectomy. Tubal ligation. [place] [facility] [place]. . FINDINGS: A single AP view of the chest demonstrates the cardiomegaly with bilateral parenchymal densities, sta ble. Endotracheal tube and nasogastric tube unchanged. The cardiomediastinal contours are unremarkabl e. Osseous structures are intact. CONCLUSION: Stable chest with cardiomegaly and bilateral parenchymal opacities. Electronically signed by: Dany Quick MD 11/15/2017 4:57 AM EDT
[2017-11-15] MEDS ORDERED: PHARMACY ORDERED LAB ONE (05:45)
[2017-11-15 05:52] LABS: AUTOMATED NEUTROPHIL # 10.9 TH/MM3 (1.8-7.7); BASOPHIL # 0.1 TH/MM3 (0-0.2); BASOPHIL % 0.7 % (0.0-2.0); EOSINOPHIL # 0.1 TH/MM3 (0-0.4); EOSINOPHIL % 0.8 % (0.0-4.0); HEMATOCRIT 33.7 % (35.0-46.0); HEMOGLOBIN 10.3 GM/DL (11.6-15.3); LYMPH % 12.9 % (9.0-44.0); LYMPHOCYTE # 1.8 TH/MM3 (1.0-4.8); MEAN CELL VOLUME 73.1 FL (80.0-100.0); MEAN CORPUSCULAR HEMOGLOBIN 22.2 PG (27.0-34.0); MEAN CORPUSCULAR HGB CONC 30.4 % (32.0-36.0); MEAN PLATELET VOLUME 8.8 FL (7.0-11.0); MONO % 9.3 % (0.0-8.0); MONOCYTE # 1.3 TH/MM3 (0-0.9); NEUT % 76.3 % (16.0-70.0); PLATELET COUNT 290 TH/MM3 (150-450); RED BLOOD COUNT 4.62 MIL/MM3 (4.00-5.30); RED CELL DISTRIBUTION WIDTH 17.6 % (11.6-17.2); WHITE BLOOD COUNT 14.3 TH/MM3 (4.0-11.0)
[2017-11-15 06:21] LABS: CALCIUM 8.6 MG/DL (8.5-10.1); CREATININE 0.7 MG/DL (0.50-1.00); PHOSPHORUS 3.4 MG/DL (2.5-4.9)
[2017-11-15] MEDS: CHLORHEXIDINE 0.12% (ORAL KIT) 15 ML CUP MT SCH ×2 (08:00→20:01)
[2017-11-15] MEDS: INSULIN ASPART SUPPLEMENTAL SCALE SQ SCH ×4 (08:00→20:03)
[2017-11-15] MEDS: ARTIFICIAL TEAR OPTH EACH EYE SCH ×2 (08:59→20:57)
[2017-11-15] MEDS: INSULIN DETEMIR 100 UNITS/ML VIAL SQ SCH ×2 (09:00→20:02)
[2017-11-15] MEDS: SODIUM CHLOR 0.9% 1000 ML INJ 1,000 ML IV SCH (09:00)
[2017-11-15] MEDS: FERROUS SULFATE 325 MG (65 MG ELEMENTAL IRON) TAB PO SCH ×2 (09:00→20:02)
[2017-11-15] MEDS: SODIUM CHLORIDE 0.9% FLUSH 10 ML FLUSH IV FLUSH SCH ×2 (09:00→20:02)
[2017-11-15] MEDS: ASPIRIN 81 MG CHEW TAB PO SCH (09:18)
[2017-11-15] MEDS: LORATADINE 10 MG TAB PO SCH (09:18)
[2017-11-15] MEDS: FUROSEMIDE 40 MG TAB PO SCH (09:18)
[2017-11-15] MEDS: CLOPIDOGREL 75 MG TAB PO SCH (09:18)
[2017-11-15] MEDS: FAMOTIDINE 20 MG TAB PO SCH ×2 (09:18→20:02)
[2017-11-15] MEDS: SERTRALINE HCL 100 MG TAB PO SCH (09:18)
[2017-11-15] MEDS: NYSTATIN 100,000 UNIT/GM CREAM 15 GM TOPICAL SCH ×2 (09:19→20:03)
[2017-11-15] MEDS: BUDESONIDE-FORMOTEROL 160/4.5 MCG INHALER INH SCH ×2 (09:19→20:01)
--- NOTE | 2017-11-15 14:03 | HHI.FPPN ---
Subjective Remarks 66 yo female with many comorbidities including CHF, COPD, morbid obesity, diabetes admitted for shortness of breath now in acute hypoxic respiratory failure requiring intubation and ventilatory support. Sedated and intubated and unable to provide history. Objective Vitals Vital Signs Date Time Temp Pulse Resp B/P (MAP) Pulse Ox O2 Delivery O2 Flow Rate FiO2 11/15/17 12:17 35 11/15/17 12:17 97 35 11/15/17 12:00 35 11/15/17 12:00 98.8 80 18 135/71 (92) 11/15/17 10:24 100 35 11/15/17 08:00 35 11/15/17 08:00 98.8 67 24 136/86 (103) 94 11/15/17 06:00 62 11/15/17 04:26 100 35 11/15/17 04:00 99.0 67 18 136/86 (103) 100 11/15/17 04:00 67 11/15/17 04:00 35 11/15/17 02:00 68 11/15/17 00:53 100 35 11/15/17 00:00 99.1 68 18 121/78 (92) 100 11/15/17 00:00 35 11/15/17 00:00 66 11/14/17 22:00 65 11/14/17 20:00 35 11/14/17 20:00 99.4 96 24 141/77 (98) 98 11/14/17 20:00 73 11/14/17 19:46 100 35 11/14/17 18:00 101 11/14/17 16:00 99.1 100 28 177/80 (112) 88 11/14/17 16:00 100 11/14/17 15:29 99 35 11/14/17 14:00 98 I/O 11/14/17 11/14/17 11/14/17 11/15/17 11/15/17 11/15/17 07:00 15:00 23:00 07:00 15:00 23:00 Intake Total 696 ml 910 ml 978 ml Output Total 1150 ml 2150 ml 1550 ml Balance -454 ml -1240 ml -572 ml IV Total 250 ml 250 ml Tube Feeding 636 ml 600 ml 728 ml Other 60 ml 60 ml Output Urine Total 1150 ml 2150 ml 1550 ml # Bowel Movements 2 0 0 Result Diagram: 11/15/17 0458 11/15/17 0458 Imaging Last Impressions Chest X-Ray 11/15/17 0600 Signed Impressions: CONCLUSION: Stable chest with cardiomegaly and bilateral parenchymal opacities. Objective Remarks O. CONSTITUTIONAL/GEN: Morbidly obese woman intubated. Opens eyes spontaneously. On soft restraints. LUNGS: Referred upper airway sounds, otherwise clear. CARDIOVASCULAR: NRRR, heart sounds distant due to body habitus. GI/ABD: obese and protuberant. SKIN: color normal, no rashes noted. HEME/LYMPH: no bruising, petechia. MUSC: Right lower extremity is bandaged w/gauze and shows deformity of the right toes, muscle atrophy and hyperpigmentation of the leg. Some hyperpigmentation seen at the ankle of the left foot. Stable from prior exams. Medications and IVs Current Medications Medications (Trade) Dose Ordered Sig/Giovanna Route Start Time Stop Time Status Last Admin (NS Flush) 2 ml BID IV FLUSH 11/09/17 21:00 11/14/17 20:18 (NS Flush) 2 ml UNSCH PRN IV FLUSH 11/09/17 12:15 (Symbicort 160-4.5 Mcg Inh) 2 puff Q12HR INH 11/09/17 21:00 11/15/17 09:19 (Heparin Inj) 5,000 units Q12H SQ 11/09/17 13:00 11/15/17 12:52 (Lipitor) 40 mg HS PO 11/09/17 21:00 11/14/17 20:19 (Plavix) 75 mg DAILY PO 11/10/17 09:00 11/15/17 09:18 (Lasix) 40 mg DAILY PO 11/10/17 09:00 11/15/17 09:18 (Neurontin) 300 mg BID PO 11/09/17 21:00 Future Hold (Claritin) 10 mg DAILY PO 11/10/17 09:00 11/15/17 09:18 (Ativan) 0.5 mg Q8H PRN PO 11/09/17 13:00 (Mycostatin Cream) 1 applic BID TOPICAL 11/09/17 21:00 11/15/17 09:19 (Zoloft) 100 mg DAILY PO 11/10/17 09:00 11/15/17 09:18 Non-Formulary Medication 1 drop BID EACH EYE 11/09/17 21:00 11/15/17 08:59 (Zofran Odt) 4 mg Q6HR PRN PO 11/09/17 13:00 (Tylenol) 650 mg Q6H PRN PO 11/09/17 13:00 11/11/17 08:08 (Percocet 10-325 Mg) 1 tab Q6H PRN PO 11/09/17 13:00 11/09/17 15:31 (Ferrous Sulfate) 325 mg BID PO 11/09/17 21:00 11/14/17 20:18 ([facility] [place] [facility]) Patient in critical care unit? Ass... Q361D .XX 11/09/17 20:45 (Peridex 0.12% Liq) 15 ml BID@08,20 MT 11/10/17 08:00 11/15/17 08:00 (Aspirin Chew) 81 mg DAILY PO 11/11/17 09:00 11/15/17 09:18 Pharmacy Profile Note 0 ml @ 0 mls/hr UNSCH OTHER 11/10/17 15:45 Dexmedetomidine HCl 1000 mcg/ Sodium Chloride 250 ml @ 6.63 mls/hr TITRATE PRN IV 11/11/17 19:45 11/15/17 03:55 (Madeline-Colace) 1 tab BID PO 11/12/17 09:00 Future Hold 11/13/17 07:58 (Milk Of Magnesia Liq) 30 ml Q12H PRN PO 11/12/17 09:00 (Senokot) 17.2 mg Q12H PRN PO 11/12/17 09:00 (Dulcolax Supp) 10 mg DAILY PRN RECTAL 11/12/17 09:00 (Lactulose Liq) 30 ml DAILY PRN PO 11/12/17 09:00 (D50w (Vial) Inj) 50 ml UNSCH PRN IV PUSH 11/12/17 09:15 (Glucagon Inj) 1 mg UNSCH PRN OTHER 11/12/17 09:15 (NovoLOG SUPPLEMENTAL SCALE) 1 ACHS SLIDING SCALE SQ 11/12/17 12:00 11/15/17 12:52 (Levemir Inj) 15 units Q12HR SQ 11/13/17 09:00 11/15/17 09:00 Sodium Chloride 1,000 ml @ 42 mls/hr [id number] IV 11/13/17 10:00 11/15/17 09:00 (Duoneb Neb) 1 ampule Q6HR NEB NEB 11/13/17 22:00 11/15/17 10:24 (Duoneb Neb) 1 ampule Q2HR NEB PRN NEB 11/13/17 17:15 Vancomycin HCl 2000 mg/Sodium Chloride 520 ml @ 260 mls/hr Q24H IV 11/14/17 16:00 11/14/17 17:10 ([facility] Ordered Lab Info) SPECIFIC LAB TO BE ... ONCE ONCE .XX 11/16/17 15:45 11/16/17 15:46 (Pepcid) 20 mg BID PO 11/14/17 21:00 11/15/17 09:18 (Xanax) 0.5 mg Q6H PRN PO 11/14/17 17:15 A/P Assessment and Plan 66 y/o F w/hx of respiratory failure requiring intubation, COPD, CHF, and morbid obesity presenting with: Problem List: (1) Respiratory failure ICD Codes: J96.90 - Respiratory failure, unspecified, unspecified whether with hypoxia or hypercapnia Status: Acute Plan: Intubated (11/10-) Causes: ARSEN, obesity hypoventilation, poorly controlled COPD, possible HCAP CXR today unchanged, showing bilateral pulmonary opacities. Blood cx (11/09) +staph Haemolyticus Sputum cx (11/10) MRSA + Critical care consulted, appreciate assistance: Continue ventilator support with CPAP trials ID consulted. Appreciate recs: Continue Vancomycin (11/10 - present) Zosyn DC'd (11/10-11/12) F/u repeat cultures Pulm consulted, recs appreciated: con't current therapy, bronchodilator prn Palliative care consulted (multiple comorbidities and hospitalizations) Per last note 11/14: Full code, goals of care remain aggressive Per note on 11/13: "Patient attempting to communicate by mouthing words and appears to nod and shake her head appropriately to questions. Patient persistently pointing towards her endotracheal tube. Asked patient if she wanted to be suctioned and she shook her head for "no". Patient indicating with her hand to "pull out" ETT. Explained the purpose of endotracheal tube to patient. Explained ongoing CPAP trials and concerns regarding failing of CPAP trials as well as probable discussions of tracheostomy placement and PEG tube placement if patient is not able to be medically extubated. Patient vigorously shook her head and was mouthing "no". Asked patient if she would want a tracheostomy and a PEG placed if she is not able to be medically extubated, patient shook her head for "no". Asked patient if in the event that she is medically extubated and is in respiratory distress whether she would like to be reintubated and she shook her head for "no". Asked patient if she understood that without such interventions(intubation) being performed she will most likely and she nodded head for "yes". Notified patient that further discussions will be done with her sister Melissa, and she nodded head in acknowledgement." If patient is to be extubated, will first clarify with sister (decision maker) whether patient would like to be reintubated (looks like not based on above discussion by palliative care). Critical care aware. (2) CHF (congestive heart failure) ICD Codes: I50.9 - CHF (congestive heart failure) Status: Chronic Plan: STABLE Takes home Lasix, lisinopril, isosorbide dinitrate PO Con't Lasix 40 mg daily Anti-hypertensives held at this time due to low BP (3) Leg wound, right ICD Codes: S81.801A - Leg wound, right Status: Chronic Plan: STABLE Hx of MRSA positive infxn Hx of childhood injury, on disability Wound ostomy consulted, appreciate recs (4) Sacral decubitus ulcer, stage II ICD Codes: L89.152 - Pressure ulcer of sacral region, stage 2 Plan: STABLE Pressure ulcer prevention Wound ostomy nurse consulted for recs, appreciate assistance (5) COPD (chronic obstructive pulmonary disease) ICD Codes: J44.9 - COPD (chronic obstructive pulmonary disease) Status: Chronic Plan: Home: Duonebs TID, Symbicort 2 puffs BID Currently intubated Will resume duoneb/alb if needed after extubation (6) Sleep apnea ICD Codes: G47.30 - Sleep apnea, unspecified Status: Chronic Plan: Requires CPAP while asleep (7) Diabetes mellitus ICD Codes: E11.9 - Type 2 diabetes mellitus without complications Status: Chronic Plan: Home: Novolog SS and lantus 10 units, sitagliptin 100 mg daily Bedside glucose hovering around 300 Keep glucose <180 High dose SSI Continue 15 units lantus BID (8) Chronic leg pain ICD Codes: M79.606 - Pain in leg, unspecified; G89.29 - Other chronic pain Plan: Home med oxycodone 5 mg and Gabapentin held to prevent further drowsiness and respiratory compromise Tylenol and Percocet PRN for pain (9) Coronary artery disease ICD Codes: I25.10 - Atherosclerotic heart disease of [place] coronary artery without angina pectoris Status: Chronic Plan: Con't home plavix and atorvastatin Hold ASA (10) Anxiety ICD Codes: F41.9 - Anxiety disorder, unspecified Plan: Con't home Ativan TID PRN (11) Depression ICD Codes: F32.9 - Major depressive disorder, single episode, unspecified Status: Chronic Plan: con't home zoloft daily (12) Iron deficiency anemia ICD Codes: D50.9 - Iron deficiency anemia, unspecified Status: Chronic Plan: Con't ferrous sulfate Laxatives and stool softeners PRN (13) FEN Plan: Fluids: none for now, careful to avoid fluid overload Electrolytes: none Nutrition: Tube feeds @50 mls/hr, high protein DVT prophy: Heparin GI prophy: Pepcid Dispo: pending CPAP trials. Per palliative care discussion patient would not want tracheostomy. Likely will have extended hospital course with eventual discharge to SNF or will opt for hospice and likely pass away after extubation. Problem Qualifiers (1) Respiratory failure: Qualified Codes: J96.01 - Acute respiratory failure with hypoxia (2) CHF (congestive heart failure): Qualified Codes: I50.9 - Heart failure, unspecified (3) Leg wound, right: Qualified Codes: S81.801A - Unspecified open wound, right lower leg, initial encounter (4) COPD (chronic obstructive pulmonary disease): Qualified Codes: J44.9 - Chronic obstructive pulmonary disease, unspecified (5) Sleep apnea: Qualified Codes: G47.30 - Sleep apnea, unspecified (6) Diabetes mellitus: Qualified Codes: E11.8 - Type 2 diabetes mellitus with unspecified complications (7) Chronic leg pain: Qualified Codes: M79.604 - Pain in right leg; M79.605 - Pain in left leg; G89.29 - Other chronic pain (8) Coronary artery disease: (9) Depression: Qualified Codes: F32.9 - Major depressive disorder, single episode, unspecified Eddie Partida MD R2 Nov 15, 2017 14:03
--- NOTE | 2017-11-15 14:48 | HHI.CCPN ---
Subjective Remarks/Hospital Course 66-year-old morbidly obese female with history of COPD on 3 L nasal cannula home O2, obesity hypoventilation syndrome, CHF, CAD (on plavix) and sleep apnea admitted with shortness of breath and hypoxia. Per chart review the patient's sister states that recently, CPAP machine has not been working and that patient had been complaining about it. Last night, machine was malfunctioning again, and patient awakened in the middle of the night with SOB. She was found to be hypoxemic with saturation in 70s-80s. He was initially placed on BiPAP with no improvement and worsening hypercarbic respiratory acidosis. Patient was intubated for acute hypercapnic respiratory failure in the ICU. Subjective: 11/10: The patient remains intubated and sedated. Endotracheal tube retracted several centimeters bilateral breath sounds equal. Patient continues on propofol and fentanyl for sedation. 11/11: Afebrile. No acute issues overnight. The patient's glucose level remains elevated. Moderate dose insulin sliding scale initiated. Discussion with the daughter, requesting definition of goals of care. Palliative care has been consult. CPAP trials were initiated, were unsuccessful today. Pulmonology has been consulted. 11/12: Afebrile. The patient was placed on high dose sliding scale last night, glucose levels remain elevated. Levimir 10u BID added to medication regimen. The patient has been placed on Precedex to facilitate ventilator weaning process and tolerated CPAP for approximately 3 hours last evening. 11/13: Afebrile. This a.m. the patient was noted to be hypotensive after CPAP trials and reinitiation of Precedex infusion. MAP was noted to be in the 50's. Patient is noted to having large bowel movements. The patient received bolus fluids of 1 L with resolution. The patient is awake nodding head to yes and no questions. 11/14: The patient continues on CPAP trials this afternoon. The patient continues on the Precedex infusion for ventilator synchrony currently at 0.6 continue to titrate upward. The patient is alert oriented attempting to talk. CPAP trials greater than 1 hour at this time. No further episodes of hypotension. 11/15: still on cpap. too somnolent and failing SBT trials. Objective Vital Signs Date Time Temp Pulse Resp B/P (MAP) Pulse Ox O2 Delivery O2 Flow Rate FiO2 11/15/17 14:07 100 35 11/15/17 12:00 98.8 80 18 135/71 (92) Intake and Output 11/15/17 11/15/17 11/16/17 08:00 16:00 00:00 Intake Total 978 ml Output Total 1550 ml Balance -572 ml Result Diagram: 11/15/17 0458 11/15/17 0458 Imaging Last 24 hours Impressions Chest X-Ray 11/13/17 0600 Signed Impressions: CONCLUSION: No significant interval change with persistent prominent cardiac silhouette enl argement and mild bilateral pulmonary opacity. Last 24 hours Impressions Chest X-Ray 11/09/17 0938 Signed Impressions: CONCLUSION: Patchy basilar airspace disease. Objective Remarks GENERAL: Morbidly obese female in intubated, awake responding to yes and no questions SKIN: Warm and dry. HEAD: Normocephalic. EYES: No scleral icterus. No injection or drainage. NECK: Supple, trachea midline. No JVD or lymphadenopathy. CARDIOVASCULAR: Regular rate and rhythm without murmurs, gallops, or rubs. RESPIRATORY: Breath sounds equal bilaterally. No accessory muscle use. GASTROINTESTINAL: Abdomen soft, non-tender, obese nondistended. MUSCULOSKELETAL: No cyanosis, or edema. Right leg with dressing on wound C/D/I BACK: Nontender without obvious deformity. NEURO EXAM: RASS -2. On Precedex infusion. Intermittently opens eyes to voice, follows simple commands, oriented to person. No focal deficits A/P Problem List: (1) HCAP (healthcare-associated pneumonia) ICD Code: J18.9 - Pneumonia, unspecified organism Assessment and Plan Plan by systems: Neurologic: Depression disorder Peripheral neuropathy Anxiety Sertraline Lorazepam Propofol and fentanyl infusion has been discontinued 11/11 Precedex infusion to maintain ventilator synchrony/sedation/analgesia Daily sedation vacation 11/14 began Xanax 0.5 mg every 6 hours for agitation and anxiety Respiratory: Acute on chronic respiratory failure History of HCAP 08/27/17 Healthcare associated pneumonia COPD OHS/ ARSEN DuoNeb scheduled and as needed Budesonide/ Formoterol Fumarate 11/11 Pulmonology following Mechanical ventilation Vent bundle SBT daily Cardiovascular: Chronic diastolic heart failure History of dyslipidemia History of right iliac artery stent placement Essential hypertension CAD Continue Lasix 40 mg/day Continue home dosing Plavix, aspirin and atorvastatin Antihypertensives currently on hold at this time, resume when clinically indicated Renal: CYNTHIA -- Strict I/Os . Maintain Wise catheter FEN/GI: Electrolyte derangement Hypoalbuminemia Morbid obesity Mild protein calorie malnutrition Diarrhea Monitor BMP Albumin level 3.2 Tube feeds Vital Hi Protein @ 50cc/hr Hold Bowel Regimen- 2/ diarrhea Heme/ID: Chronic Anemia Bacteremia gram-positive HCAP [id number]-[id number] 11/10-blood culture staph hemolyticus Follow-up urine 11/10 sputum culture-MRSA Iron supplement-ferrous sulfate 325 mg twice daily Pro calcitonin level- elevated Endocrine: Diabetes mellitus Sliding scale insulin per ICU protocol. Increase to medium dose sliding scale Glucose monitoring per ICU protocol, every 4 hours -- SSI Prophylaxis: GI Prophylaxis Famotidine BID DVT Prophylaxis -- SCDs Heparin 5000 SQ BID Lines: Peripheral IVs 2. Central line if indicated Handy Frank MD Nov 15, 2017 14:48
[2017-11-15] MEDS: VANCOMYCIN INJ 2,000 MG in SODIUM CHLORID 0.9% 500 ML INJ 500 ML IV SCH (18:45)
[2017-11-15] MEDS ORDERED: LORazepam 2 MG/ML VIAL ONE (18:53)
[2017-11-15] MEDS ORDERED: METOPROLOL TARTRATE 5 MG/5 ML VIAL IV PUSH PRN (19:00)
[2017-11-15] MEDS: LORazepam 2 MG/ML VIAL IV PUSH PRN (19:24)
[2017-11-15] MEDS: ATORVASTATIN 40 MG TAB PO SCH (20:02)
[2017-11-16] VITALS (19 sets, daily range): BP systolic 128–146; BP diastolic 62–71; PULSE 61–86; RESP 18–121; TEMP 98.2–100.9; O2SAT 95–100
[2017-11-16] MEDS: HEPARIN SODIUM - SQ 10,000 UNITS/ML VIAL SQ SCH ×2 (00:05→12:05)
[2017-11-16] MEDS: DEXMEDETOMIDINE INJ 1,000 MCG in SODIUM CHLOR 0.9% 250 ML INJ 240 ML IV PRN ×3 (02:05→19:19)
[2017-11-16] MEDS: RESP: ALBUTEROL 2.5 MG/IPRATROPIUM 0.5 MG NEB (SCH) NEB ×4 (03:42→19:22)
[2017-11-16 06:23] LABS: AUTOMATED NEUTROPHIL # 8.5 TH/MM3 (1.8-7.7); BASOPHIL % 0.2 % (0.0-2.0); HEMATOCRIT 34.7 % (35.0-46.0); HEMOGLOBIN 10.5 GM/DL (11.6-15.3); LYMPH % 14.2 % (9.0-44.0); LYMPHOCYTE # 1.6 TH/MM3 (1.0-4.8); MEAN CELL VOLUME 72.9 FL (80.0-100.0); MEAN CORPUSCULAR HEMOGLOBIN 22.2 PG (27.0-34.0); MEAN CORPUSCULAR HGB CONC 30.4 % (32.0-36.0); MEAN PLATELET VOLUME 9.3 FL (7.0-11.0); MONO % 8.9 % (0.0-8.0); NEUT % 76.7 % (16.0-70.0); PLATELET COUNT 301 TH/MM3 (150-450); RED BLOOD COUNT 4.75 MIL/MM3 (4.00-5.30); RED CELL DISTRIBUTION WIDTH 17.3 % (11.6-17.2); WHITE BLOOD COUNT 11.1 TH/MM3 (4.0-11.0)
[2017-11-16 06:41] LABS: CREATININE 0.76 MG/DL (0.50-1.00)
[2017-11-16] MEDS: LORATADINE 10 MG TAB PO SCH (07:48)
[2017-11-16] MEDS: FUROSEMIDE 40 MG TAB PO SCH (07:48)
[2017-11-16] MEDS: FAMOTIDINE 20 MG TAB PO SCH ×2 (07:48→20:17)
[2017-11-16] MEDS: SODIUM CHLORIDE 0.9% FLUSH 10 ML FLUSH IV FLUSH SCH ×2 (07:49→20:20)
[2017-11-16] MEDS: CLOPIDOGREL 75 MG TAB PO SCH (07:49)
[2017-11-16] MEDS: INSULIN ASPART SUPPLEMENTAL SCALE SQ SCH ×4 (07:49→20:16)
[2017-11-16] MEDS: FERROUS SULFATE 325 MG (65 MG ELEMENTAL IRON) TAB PO SCH ×2 (07:49→20:17)
[2017-11-16] MEDS: ASPIRIN 81 MG CHEW TAB PO SCH (07:49)
[2017-11-16] MEDS: BUDESONIDE-FORMOTEROL 160/4.5 MCG INHALER INH SCH (07:49)
[2017-11-16] MEDS: SERTRALINE HCL 100 MG TAB PO SCH (07:49)
[2017-11-16] MEDS: NYSTATIN 100,000 UNIT/GM CREAM 15 GM TOPICAL SCH ×2 (07:50→20:20)
[2017-11-16] MEDS: INSULIN DETEMIR 100 UNITS/ML VIAL SQ SCH ×2 (07:50→20:23)
[2017-11-16] MEDS: SODIUM CHLOR 0.9% 1000 ML INJ 1,000 ML IV SCH (07:50)
[2017-11-16] MEDS: ARTIFICIAL TEAR OPTH EACH EYE SCH ×2 (09:00→20:46)
--- NOTE | 2017-11-16 10:48 | HHI.FPPN ---
Subjective Remarks Witnessed general tonic-clonic seizure at around 5pm yesterday. Was given Ativan 2 mg 1. Vitals have been stable. Was febrile @ 100.9 this morning. On CPAP this a.m. Spoke with critical care Dr. Cleveland, plan for extubation soon. Objective Vitals Vital Signs Date Time Temp Pulse Resp B/P (MAP) Pulse Ox O2 Delivery O2 Flow Rate FiO2 11/16/17 10:04 100 35 11/16/17 08:00 71 11/16/17 08:00 35 11/16/17 08:00 98.8 71 121 146/69 (94) 98 11/16/17 07:54 96 35 11/16/17 07:54 35 11/16/17 06:00 69 11/16/17 04:00 35 11/16/17 04:00 100.9 73 20 131/62 (85) 97 11/16/17 04:00 74 11/16/17 03:42 100 35 11/16/17 02:00 79 11/16/17 00:29 100 35 11/16/17 00:00 99.4 84 20 128/63 (84) 97 11/16/17 00:00 86 11/16/17 00:00 35 11/15/17 22:00 98 11/15/17 20:41 100 35 11/15/17 20:00 35 11/15/17 20:00 141 11/15/17 20:00 100.9 141 22 150/88 (108) 97 11/15/17 17:57 99 35 11/15/17 16:19 99 35 11/15/17 16:00 99.8 105 16 134/64 (87) 99 11/15/17 14:07 100 35 11/15/17 12:17 35 11/15/17 12:17 97 35 11/15/17 12:00 35 11/15/17 12:00 98.8 80 18 135/71 (92) I/O 11/15/17 11/15/17 11/15/17 11/16/17 11/16/17 11/16/17 07:00 15:00 23:00 07:00 15:00 23:00 Intake Total 978 ml 770 ml 1115 ml Output Total 1550 ml 1800 ml 1200 ml Balance -572 ml -1030 ml -85 ml IV Total 250 ml 770 ml 250 ml Tube Feeding 728 ml 745 ml Other 120 ml Output Urine Total 1550 ml 1800 ml 1200 ml # Bowel Movements 0 0 Result Diagram: 11/16/1752411/16/17524 Objective Remarks O. CONSTITUTIONAL/GEN: Morbidly obese woman intubated. Opens eyes spontaneously. On soft restraints. LUNGS: Referred upper airway sounds, otherwise clear. CARDIOVASCULAR: NRRR, heart sounds distant due to body habitus. GI/ABD: obese and protuberant. SKIN: color normal, no rashes noted. HEME/LYMPH: no bruising, petechia. MUSC: Right lower extremity is bandaged w/gauze and shows deformity of the right toes, muscle atrophy and hyperpigmentation of the leg. Some hyperpigmentation seen at the ankle of the left foot. Stable from prior exams. A/P Assessment and Plan 66 y/o F w/hx of respiratory failure requiring intubation, COPD, CHF, and morbid obesity presenting with: Problem List: (1) Witnessed seizure-like activity ICD Codes: R56.9 - Unspecified convulsions Status: Acute Plan: Differential: Infection versus pseudo seizure versus agitation Patient is on Vanco Follow-up EEG results Ativan as needed neurochecks Continue to monitor further episodes, consider neurology consult (2) Respiratory failure ICD Codes: J96.90 - Respiratory failure, unspecified, unspecified whether with hypoxia or hypercapnia Status: Acute Plan: Intubated (11/10-) Causes: ARSEN, obesity hypoventilation, poorly controlled COPD, possible HCAP CXR today unchanged, showing bilateral pulmonary opacities. Blood cx (11/09) +staph Haemolyticus Sputum cx (11/10) MRSA + Critical care consulted, appreciate assistance: Continue ventilator support with CPAP trials ID consulted. Appreciate recs: Continue Vancomycin Day 3 (11/10 - present) Zosyn DC'd (11/10-11/12) F/u repeat cultures Pulm consulted, recs appreciated: con't current therapy, bronchodilator prn Palliative care consulted (multiple comorbidities and hospitalizations) Per last note 11/14: Full code, goals of care remain aggressive Per note on 11/13: "Patient attempting to communicate by mouthing words and appears to nod and shake her head appropriately to questions. Patient persistently pointing towards her endotracheal tube. Asked patient if she wanted to be suctioned and she shook her head for "no". Patient indicating with her hand to "pull out" ETT. Explained the purpose of endotracheal tube to patient. Explained ongoing CPAP trials and concerns regarding failing of CPAP trials as well as probable discussions of tracheostomy placement and PEG tube placement if patient is not able to be medically extubated. Patient vigorously shook her head and was mouthing "no". Asked patient if she would want a tracheostomy and a PEG placed if she is not able to be medically extubated, patient shook her head for "no". Asked patient if in the event that she is medically extubated and is in respiratory distress whether she would like to be reintubated and she shook her head for "no". Asked patient if she understood that without such interventions(intubation) being performed she will most likely and she nodded head for "yes". Notified patient that further discussions will be done with her sister Melissa, and she nodded head in acknowledgement." If patient is to be extubated, will first clarify with sister (decision maker) whether patient would like to be reintubated (looks like not based on above discussion by palliative care). Will touch base w/palliative care Friday. (3) CHF (congestive heart failure) ICD Codes: I50.9 - CHF (congestive heart failure) Status: Chronic Plan: STABLE Takes home Lasix, lisinopril, isosorbide dinitrate PO Con't Lasix 40 mg daily Anti-hypertensives held at this time due to low BP (4) Leg wound, right ICD Codes: S81.801A - Leg wound, right Status: Chronic Plan: STABLE Hx of MRSA positive infxn Hx of childhood injury, on disability Wound ostomy consulted, appreciate recs (5) Sacral decubitus ulcer, stage II ICD Codes: L89.152 - Pressure ulcer of sacral region, stage 2 Plan: STABLE Pressure ulcer prevention Wound ostomy nurse consulted for recs, appreciate assistance (6) COPD (chronic obstructive pulmonary disease) ICD Codes: J44.9 - COPD (chronic obstructive pulmonary disease) Status: Chronic Plan: Home: Duonebs TID, Symbicort 2 puffs BID Currently intubated Will resume duoneb/alb if needed after extubation (7) Sleep apnea ICD Codes: G47.30 - Sleep apnea, unspecified Status: Chronic Plan: Requires CPAP while asleep (8) Diabetes mellitus ICD Codes: E11.9 - Type 2 diabetes mellitus without complications Status: Chronic Plan: Home: Novolog SS and lantus 10 units, sitagliptin 100 mg daily Bedside glucose hovering around 300 Keep glucose <180 High dose SSI Continue 15 units lantus BID (9) Chronic leg pain ICD Codes: M79.606 - Pain in leg, unspecified; G89.29 - Other chronic pain Plan: Home med oxycodone 5 mg and Gabapentin held to prevent further drowsiness and respiratory compromise Tylenol and Percocet PRN for pain (10) Coronary artery disease ICD Codes: I25.10 - Atherosclerotic heart disease of [place] coronary artery without angina pectoris Status: Chronic Plan: Con't home plavix and atorvastatin Hold ASA (11) Anxiety ICD Codes: F41.9 - Anxiety disorder, unspecified Plan: Con't home Ativan TID PRN (12) Depression ICD Codes: F32.9 - Major depressive disorder, single episode, unspecified Status: Chronic Plan: con't home zoloft daily (13) Iron deficiency anemia ICD Codes: D50.9 - Iron deficiency anemia, unspecified Status: Chronic Plan: Con't ferrous sulfate Laxatives and stool softeners PRN (14) FEN Plan: Fluids: none for now, careful to avoid fluid overload Electrolytes: none Nutrition: Tube feeds @50 mls/hr, high protein DVT prophy: Heparin GI prophy: Pepcid Dispo: pending CPAP trials. Per palliative care discussion patient would not want tracheostomy. Likely will have extended hospital course with eventual discharge to SNF or will opt for hospice and likely pass away after extubation. Problem Qualifiers (1) Respiratory failure: Qualified Codes: J96.01 - Acute respiratory failure with hypoxia (2) CHF (congestive heart failure): Qualified Codes: I50.9 - Heart failure, unspecified (3) Leg wound, right: Qualified Codes: S81.801A - Unspecified open wound, right lower leg, initial encounter (4) COPD (chronic obstructive pulmonary disease): Qualified Codes: J44.9 - Chronic obstructive pulmonary disease, unspecified (5) Sleep apnea: Qualified Codes: G47.30 - Sleep apnea, unspecified (6) Diabetes mellitus: Qualified Codes: E11.8 - Type 2 diabetes mellitus with unspecified complications (7) Chronic leg pain: Qualified Codes: M79.604 - Pain in right leg; M79.605 - Pain in left leg; G89.29 - Other chronic pain (8) Coronary artery disease: (9) Depression: Qualified Codes: F32.9 - Major depressive disorder, single episode, unspecified Ksenia Brunner MD R1 Nov 16, 2017 10:48
[2017-11-16] MEDS: CHLORHEXIDINE 0.12% (ORAL KIT) 15 ML CUP MT SCH ×2 (12:06→20:24)
--- NOTE | 2017-11-16 12:06 | HHI.CCPN ---
Subjective Remarks/Hospital Course 66-year-old morbidly obese female with history of COPD on 3 L nasal cannula home O2, obesity hypoventilation syndrome, CHF, CAD (on plavix) and sleep apnea admitted with shortness of breath and hypoxia. Per chart review the patient's sister states that recently, CPAP machine has not been working and that patient had been complaining about it. Last night, machine was malfunctioning again, and patient awakened in the middle of the night with SOB. She was found to be hypoxemic with saturation in 70s-80s. He was initially placed on BiPAP with no improvement and worsening hypercarbic respiratory acidosis. Patient was intubated for acute hypercapnic respiratory failure in the ICU. 11/10: The patient remains intubated and sedated. Endotracheal tube retracted several centimeters bilateral breath sounds equal. Patient continues on propofol and fentanyl for sedation. 11/11: Afebrile. No acute issues overnight. The patient's glucose level remains elevated. Moderate dose insulin sliding scale initiated. Discussion with the daughter, requesting definition of goals of care. Palliative care has been consult. CPAP trials were initiated, were unsuccessful today. Pulmonology has been consulted. 11/12: Afebrile. The patient was placed on high dose sliding scale last night, glucose levels remain elevated. Levimir 10u BID added to medication regimen. The patient has been placed on Precedex to facilitate ventilator weaning process and tolerated CPAP for approximately 3 hours last evening. 11/13: Afebrile. This a.m. the patient was noted to be hypotensive after CPAP trials and reinitiation of Precedex infusion. MAP was noted to be in the 50's. Patient is noted to having large bowel movements. The patient received bolus fluids of 1 L with resolution. The patient is awake nodding head to yes and no questions. 11/14: The patient continues on CPAP trials this afternoon. The patient continues on the Precedex infusion for ventilator synchrony currently at 0.6 continue to titrate upward. The patient is alert oriented attempting to talk. CPAP trials greater than 1 hour at this time. No further episodes of hypotension. 11/15: still on cpap. too somnolent and failing SBT trials. Subjective: 11/16: T-max 100. Currently 99.4. Seizure yesterday. Currently on PSV trial at 35%. Follows commands. No bowel movement. Tube feeds at goal at 50 cc an hour Objective Vital Signs Date Time Temp Pulse Resp B/P (MAP) Pulse Ox O2 Delivery O2 Flow Rate FiO2 11/16/17 10:04 100 35 11/16/17 10:00 66 11/16/17 08:00 98.8 121 146/69 (94) Intake and Output 11/16/17 11/16/17 11/17/17 08:00 16:00 00:00 Intake Total 1115 ml Output Total 1200 ml Balance -85 ml Result Diagram: 11/16/17 0525 11/16/17 0525 Other Results Microbiology Date/Time Source Procedure Growth Status 11/09/17 09:57 Blood Peripheral Aerobic Blood Culture - Final Staphylococcus Haemolyticus Complete 11/09/17 09:57 Blood Peripheral Anaerobic Blood Culture - Final NO GROWTH IN 5 DAYS Complete 11/14/17 18:00 Sputum Endotracheal Gram Stain - Final Resulted 11/14/17 18:00 Sputum Endotracheal Sputum Culture - Preliminary IMMATURE GROWTH - REINCUBATE Resulted Imaging Last Impressions Chest X-Ray 11/15/17 0600 Signed Impressions: CONCLUSION: Stable chest with cardiomegaly and bilateral parenchymal opacities. Objective Remarks GENERAL: 66-year-old AA female in intubated, awake responding to yes and no questions SKIN: Warm and dry. HEAD: Normocephalic. EYES: No scleral icterus. No injection or drainage. NECK: Supple, trachea midline. No JVD or lymphadenopathy. CARDIOVASCULAR: Regular rate and rhythm without murmurs, gallops, or rubs. RESPIRATORY: Breath sounds equal bilaterally. No accessory muscle use. GASTROINTESTINAL: Abdomen soft, non-tender, obese nondistended. MUSCULOSKELETAL: No cyanosis, or edema. Right lower extremity below the knee with significant atrophy with dressing on wound C/D/I BACK: Nontender without obvious deformity. NEURO EXAM: RASS -2. On dexmedetomidine infusion. Intermittently opens eyes to voice, follows simple commands, oriented to person. No focal deficits Urinary Catheter: No Assessment to: Continue Vascular Central Line Catheter: No Assessment to: Continue A/P Assessment and Plan Neuro/Psych: Depression disorder NOS Chronic benzodiazepine use Chronic opioid use Peripheral neuropathy Anxiety Seizure disorder NOS Allergic rhinitis Currently on dexmedetomidine drip at 0.2 mcg/kg/min to maintain minocycline only /sedation/analgesia Goal of RA SS 0 Daily sedation vacation Sertraline 100 mg daily/home medication resumed Lorazepam 0.5 mg every 8 hours/medication Daily sedation vacation 11/14 initiated alprazolam 0.5 mg every 6 hours for agitation and anxiety EEG completed MRI brain ordered Seizure precautions Continue loratadine 10 mg daily for allergic rhinitis Respiratory: Acute on chronic respiratory failure History of HCAP 08/27/17 Healthcare associated pneumonia COPD OHS/ ARSEN Currently on PSV 05/06 at 35% Albuterol/ipratropium aerosols every 4 hours with albuterol aerosols every 2 hours as needed dyspnea Budesonide 0.5/2 1 inhalation twice daily Spontaneous breathing trials as clinically indicated Budesonide/ Formoterol Fumarate 160/4.52 puffs twice daily and hold while intubated 11/11 Pulmonology following Continue ventilator bundle Cardiovascular: Chronic diastolic heart failure History of dyslipidemia History of right iliac artery stent placement Essential hypertension CAD Continue furosemide 40 mg/day Continue home dosing clopidogrel 75 mg daily 81 mg daily, aspirin and atorvastatin 40 mg daily for dyslipidemia Antihypertensives currently on hold at this time, resume when clinically indicated These include isosorbide mononitrate 30 mg daily and lisinopril 5 mg by mouth daily Renal: CYNTHIA -- Strict I/Os . Maintain Wise catheter FEN/GI: Hypoalbuminemia Morbid obesity Mild protein calorie malnutrition with hypoalbuminemia Diarrhea resolved Monitor BMP Albumin level 3.2 Tube feeds Vital Hi Protein @ 50cc/hr/per nutrition recommendations Famotidine 20 mg daily for GI prophylaxis Docusate 200 mg twice daily/senna 820 mg twice daily for bowel regimen Heme/ID: Leukocytosis Microcytic anemia Bacteremia gram-positive likely contaminant HCAP [id number] 11/09-blood culture staph hemolyticus 11/10 sputum culture-MRSA Iron supplement-ferrous sulfate 325 mg twice daily Pro calcitonin level- elevated Endocrine: Diabetes mellitus Sliding scale insulin per ICU protocol. Increase to high dose sliding scale Novulog Glucose monitoring per ICU protocol, every 4 hours MSK: Elevated BMI Weight loss encouraged PT evaluate and treat range of motion Prophylaxis: GI Prophylaxis Famotidine BID DVT Prophylaxis -- SCDs Heparin 5000 SQ BID Lines: Peripheral IVs 2. Central line if indicated Level 2 follow-up Sunday Mccord MD Nov 16, 2017 12:06
[2017-11-16] MEDS ORDERED: RESP: ALBUTEROL 2.5 MG/3 ML NEB (PRN) NEB (12:15)
[2017-11-16] MEDS ORDERED: PHARMACY ORDERED LAB ONE (15:45)
[2017-11-16] MEDS: LORazepam 2 MG/ML VIAL IV PUSH PRN (15:52)
--- NOTE | 2017-11-16 16:55 | RADRPT ---
EXAM DATE: 11/16/2017 4:35 PM EDT AGE/SEX: 66 years / Female INDICATIONS: Seizures. CLINICAL DATA: This is the patient's initial encounter. Patient reports that signs and symptoms have been present for 1 day and indicates a pain score of 0/10. MEDICAL/SURGICAL HISTORY: Hypertension. Diabetes mellitus type II. Hysterectomy. sec tion. Iliac stent. COMPARISON: [facility] [place] BRAIN [place]/O CONTRAST, 08/09/2016. . TECHNIQUE: Multiplanar, multisequence examination of the brain was performed without contrast. FINDINGS: There is a remote small infarct in the right parietal lobe. Mild to moderate chronic ischemic changes present in the periventricular white matter. No recent infarct on the diffusion-weighted images. There is no mass effect or midline shift. No hydrocephalus. No sellar masses. No abnormal extra-axial fluid collections. CONCLUSION: 1. 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 No r ecent infarct. No mass effect or shift. No hydrocephalus. Mild to moderate chronic ischemic changes i n the periventricular white matter also appear similar to prior CT. Electronically signed by: Demarcus Hartman MD 11/16/2017 4:54 PM EDT
[2017-11-16] MEDS: VANCOMYCIN INJ 2,000 MG in SODIUM CHLORID 0.9% 500 ML INJ 500 ML IV SCH (17:11)
[2017-11-16] MEDS: RESP: BUDESONIDE 0.5 MG/2 ML NEB NEB SCH (19:25)
[2017-11-16] MEDS: DOCUSATE SODIUM 100 MG/10 ML UDC PO SCH (20:17)
[2017-11-16] MEDS: ATORVASTATIN 40 MG TAB PO SCH (20:17)
[2017-11-16] MEDS: SENNOSIDES SYRUP 8.8 MG/5 ML CUP PO SCH (20:21)
[2017-11-16] MEDS: MUPIROCIN 2% OINT 1 APPLIC/GM SYR EACH NARE SCH (20:23)
[2017-11-17] VITALS (19 sets, daily range): BP systolic 98–147; BP diastolic 53–73; PULSE 61–113; RESP 13–28; TEMP 97.8–99.7; O2SAT 98–100
[2017-11-17] MEDS: HEPARIN SODIUM - SQ 10,000 UNITS/ML VIAL SQ SCH ×2 (00:16→12:22)
[2017-11-17] MEDS: INSULIN ASPART SUPPLEMENTAL SCALE SQ SCH ×7 (00:16→23:39)
[2017-11-17] MEDS: DEXMEDETOMIDINE INJ 1,000 MCG in SODIUM CHLOR 0.9% 250 ML INJ 240 ML IV PRN ×4 (00:17→21:37)
[2017-11-17] MEDS: RESP: ALBUTEROL 2.5 MG/IPRATROPIUM 0.5 MG NEB (SCH) NEB ×7 (00:52→23:33)
--- NOTE | 2017-11-17 05:18 | RADRPT ---
EXAM DATE: 11/17/2017 5:02 AM EDT AGE/SEX: 66 years / Female INDICATIONS: Shortness of breath, possible pulmonary disease. CLINICAL DATA: This is the patient's subsequent encounter. Patient reports that signs and symptoms h ave been present for 3 days and indicates a pain score of 0/10. MEDICAL/SURGICAL HISTORY: Hypertension. Diabetes mellitus type II. Hysterectomy. sec tion. COMPARISON: [facility], CHEST SINGLE AP, 11/15/2017. . FINDINGS: The heart remains enlarged. The ET tube and NG tube both in good position. Mild bibasilar atelectasis . Small lung volumes CONCLUSION: Small lung volumes and a prominent cardiac silhouette are unchanged. Electronically signed by: Maverick Maria MD 11/17/2017 5:17 AM EDT
--- NOTE | 2017-11-17 07:34 | MG ---
cc: Yrn Paz MD DATE OF STUDY: 11/16/2017 ELECTROENCEPHALOGRAM RECORD NUMBER: [id number]. DESCRIPTION: The generalized delta, theta activity of 10-40 microvolts with some spindles suggestive of stage II sleep. Couple sharp transients occurring. Limited driving with photic stimulation. Nice balance, nice . Sharp wave at C4 epoch 121. Good EEG variability towards the end. Background incremented up to 5-6 Hz. INTERPRETATION: Mainly sleep state. Rare tiny sharp transient. Brief episodes of very minimal encephalopathy. No active seizures. Clinical correlation. MD PIPO Quintero/CAESAR , 09:21 PM , 10:03 PM
[2017-11-17 07:43] LABS: AUTOMATED NEUTROPHIL # 7.8 TH/MM3 (1.8-7.7); BASOPHIL # 0.1 TH/MM3 (0-0.2); BASOPHIL % 0.6 % (0.0-2.0); EOSINOPHIL # 0.1 TH/MM3 (0-0.4); EOSINOPHIL % 0.6 % (0.0-4.0); HEMATOCRIT 34.4 % (35.0-46.0); HEMOGLOBIN 10.5 GM/DL (11.6-15.3); LYMPH % 15.3 % (9.0-44.0); LYMPHOCYTE # 1.6 TH/MM3 (1.0-4.8); MEAN CELL VOLUME 72.9 FL (80.0-100.0); MEAN CORPUSCULAR HEMOGLOBIN 22.2 PG (27.0-34.0); MEAN CORPUSCULAR HGB CONC 30.4 % (32.0-36.0); MONO % 11.1 % (0.0-8.0); MONOCYTE # 1.2 TH/MM3 (0-0.9); NEUT % 72.4 % (16.0-70.0); PLATELET COUNT 314 TH/MM3 (150-450); RED BLOOD COUNT 4.73 MIL/MM3 (4.00-5.30); RED CELL DISTRIBUTION WIDTH 17.5 % (11.6-17.2); WHITE BLOOD COUNT 10.8 TH/MM3 (4.0-11.0)
[2017-11-17 07:50] LABS: ALBUMIN 2.3 GM/DL (3.4-5.0); AST (GOT) 16 U/L (15-37); BICARBONATE 22.2 MEQ/L (21.0-32.0); BLOOD UREA NITROGEN 19 MG/DL (7-18); CALCIUM 8.6 MG/DL (8.5-10.1); CHLORIDE 107 MEQ/L (98-107); CREATININE 0.65 MG/DL (0.50-1.00); GLOMERULAR FILTRATION RATE 111 ML/MIN (>89); GLUCOSE,RANDOM 208 MG/DL (74-106); MAGNESIUM 2.1 MG/DL (1.5-2.5); SODIUM (NA) 140 MEQ/L (136-145)
[2017-11-17 07:51] LABS: ALT (GPT) 33 U/L (10-53); PHOSPHORUS 2.5 MG/DL (2.5-4.9)
[2017-11-17 07:53] LABS: ALKALINE PHOSPHATASE 87 U/L (45-117); TOTAL BILIRUBIN ADULT 0.5 MG/DL (0.2-1.0)
[2017-11-17] MEDS ORDERED: GLYCERIN ADULT 2 GM SUPP RECTAL ONE (08:00)
[2017-11-17] MEDS ORDERED: MINERAL OIL EMULSION 55% PO ONE (08:00)
--- NOTE | 2017-11-17 08:07 | HHI.CCPN ---
Subjective Remarks/Hospital Course 66-year-old morbidly obese female with history of COPD on 3 L nasal cannula home O2, obesity hypoventilation syndrome, CHF, CAD (on plavix) and sleep apnea admitted with shortness of breath and hypoxia. Per chart review the patient's sister states that recently, CPAP machine has not been working and that patient had been complaining about it. Last night, machine was malfunctioning again, and patient awakened in the middle of the night with SOB. She was found to be hypoxemic with saturation in 70s-80s. He was initially placed on BiPAP with no improvement and worsening hypercarbic respiratory acidosis. Patient was intubated for acute hypercapnic respiratory failure in the ICU. 11/10: The patient remains intubated and sedated. Endotracheal tube retracted several centimeters bilateral breath sounds equal. Patient continues on propofol and fentanyl for sedation. 11/11: Afebrile. No acute issues overnight. The patient's glucose level remains elevated. Moderate dose insulin sliding scale initiated. Discussion with the daughter, requesting definition of goals of care. Palliative care has been consult. CPAP trials were initiated, were unsuccessful today. Pulmonology has been consulted. 11/12: Afebrile. The patient was placed on high dose sliding scale last night, glucose levels remain elevated. Levimir 10u BID added to medication regimen. The patient has been placed on Precedex to facilitate ventilator weaning process and tolerated CPAP for approximately 3 hours last evening. 11/13: Afebrile. This a.m. the patient was noted to be hypotensive after CPAP trials and reinitiation of Precedex infusion. MAP was noted to be in the 50's. Patient is noted to having large bowel movements. The patient received bolus fluids of 1 L with resolution. The patient is awake nodding head to yes and no questions. 11/14: The patient continues on CPAP trials this afternoon. The patient continues on the Precedex infusion for ventilator synchrony currently at 0.6 continue to titrate upward. The patient is alert oriented attempting to talk. CPAP trials greater than 1 hour at this time. No further episodes of hypotension. 11/15: still on cpap. too somnolent and failing SBT trials. 11/16: T-max 100. Currently 99.4. Seizure yesterday. Currently on PSV trial at 35%. Follows commands. No bowel movement. Tube feeds at goal at 50 cc an hour Subjective: 11/17: Afebrile. No bowel movement 3 days. Arousable on dexmedetomidine drip at 1.5 mg/kg/min. No new seizure activity. EEG and MRI brain reviewed. No acute findings. Objective Vital Signs Date Time Temp Pulse Resp B/P (MAP) Pulse Ox O2 Delivery O2 Flow Rate FiO2 11/17/17 06:00 63 11/17/17 05:05 98 35 11/17/17 04:00 99.0 18 128/73 (91) Intake and Output 11/17/17 11/17/17 11/18/17 08:00 16:00 00:00 Intake Total 1228 ml Output Total 1700 ml Balance -472 ml Result Diagram: 11/17/17 0638 11/17/17 0638 Other Results Microbiology Date/Time Source Procedure Growth Status 11/09/17 09:57 Blood Peripheral Aerobic Blood Culture - Final Staphylococcus Haemolyticus Complete 11/09/17 09:57 Blood Peripheral Anaerobic Blood Culture - Final NO GROWTH IN 5 DAYS Complete 11/14/17 18:00 Sputum Endotracheal Gram Stain - Final Complete 11/14/17 18:00 Sputum Endotracheal Sputum Culture - Final HEAVY GROWTH NORMAL RESPIRATORY GRUPO Complete Imaging Last Impressions Chest X-Ray 11/17/17 0600 Signed Impressions: CONCLUSION: Small lung volumes and a prominent cardiac silhouette are unchanged. Brain MRI 11/16/17 0000 Signed Impressions: CONCLUSION: 1. 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 No recent infarct. No mass effect or shift. No hydrocephalus. Mild to moderate chronic ischemic changes in the periventricular white matter also appear similar to prior CT. Objective Remarks GENERAL: 66-year-old AA female in intubated, awake responding to yes and no questions SKIN: Warm and dry. HEAD: Normocephalic. EYES: No scleral icterus. No injection or drainage. NECK: Supple, trachea midline. No JVD or lymphadenopathy. CARDIOVASCULAR: Regular rate and rhythm without murmurs, gallops, or rubs. RESPIRATORY: Breath sounds equal bilaterally. No accessory muscle use. GASTROINTESTINAL: Abdomen soft, non-tender, obese nondistended. MUSCULOSKELETAL: No cyanosis, or edema. Right lower extremity below the knee with significant atrophy with dressing on wound C/D/I BACK: Nontender without obvious deformity. NEURO EXAM: RASS -2. On dexmedetomidine infusion. Intermittently opens eyes to voice, follows simple commands, oriented to person. No focal deficits Urinary Catheter: Yes Assessment to: Continue Wise insert reason: Prolonged Immobilization Vascular Central Line Catheter: No Assessment to: Continue A/P Assessment and Plan Neuro/Psych: Depression disorder NOS Chronic benzodiazepine use Chronic opioid use Peripheral neuropathy Anxiety Seizure disorder NOS Allergic rhinitis Currently on dexmedetomidine drip at 1.5 mcg/kg/min to maintain sedation/ analgesia Goal of RASS 0 Daily sedation vacation Sertraline 100 mg daily/home medication resumed for depression Lorazepam 0.5 mg every 8 hours/medication anxiety Daily sedation vacation EEG 11/16 - sleep state. Rare tiny sharp transient. Brief episodes of very minimal encephalopathy. No active seizures. Clinical correlation. MRI brain 11/16 -remote small infarct in the right parietal lobe similar in size to a prior CT from September 2016. No recent infarct. No mass effect or shift. No hydrocephalus. Mild to moderate chronic ischemic changes in the periventricular white matter also appear similar to prior CT Seizure precautions Continue loratadine 10 mg daily for allergic rhinitis Respiratory: Acute on chronic respiratory failure History of HCAP 08/27/17 Healthcare associated pneumonia COPD OHS/ ARSEN PRVC 18/550/0.9/5/35 Currently on PSV trial 05/06 at 35% Ventilator bundle Albuterol/ipratropium aerosols every 4 hours with albuterol aerosols every 2 hours as needed dyspnea Budesonide 0.5/2 1 inhalation twice daily Spontaneous breathing trials as clinically indicated Budesonide/ Formoterol Fumarate 160/4.52 puffs twice daily on hold while intubated 11/11 Pulmonology following Cardiovascular: Chronic diastolic heart failure History of dyslipidemia History of right iliac artery stent placement Essential hypertension CAD Continue furosemide 40 mg/day Continue home dosing clopidogrel 75 mg daily 81 mg daily aspirin and atorvastatin 40 mg daily for dyslipidemia Antihypertensives currently on hold at this time, resume when clinically indicated These include isosorbide mononitrate 30 mg daily and lisinopril 5 mg by mouth daily Renal: CYNTHIA -resolved -- Strict I/Os . Maintain Wise catheter FEN/GI: Mild protein calorie malnutrition with hypoalbuminemia Diarrhea resolved now with constipation Hypokalemia 40 milliequivalents KCl powder down to 1 now along with 30 mEq IV. Recheck in a.m. Monitor BMP Tube feeds Vital Hi Protein @ 50cc/hr/per nutrition recommendations Famotidine 20 mg daily for GI prophylaxis Docusate sodium 100 mg twice daily/senna 820 mg twice daily for bowel regimen Add polythene glycol 17 g twice daily and lactulose 30 cc daily. Mineral oil 30 cc 1 now along with glycerin suppository. Check KUB in a.m. 11/18 Heme/ID: Microcytic anemia Bacteremia gram-positive likely contaminant HCAP [id number] 11/09-blood culture staph hemolyticus 11/10 sputum culture-MRSA repeat 11/14 pending Iron supplement-ferrous sulfate 325 mg twice daily Pro calcitonin level- elevated Recheck blood cultures 2, sputum and urine today Endocrine: Diabetes mellitus Sliding scale insulin per ICU protocol. Increase to high dose sliding scale Novulog every 4 hours with insulin detemir 15 units subcu twice daily MSK: Elevated BMI 54.3 Weight loss encouraged PT evaluate and treat range of motion Prophylaxis: GI Prophylaxis Famotidine BID DVT Prophylaxis -- SCDs Heparin 5000 SQ BID Lines: Peripheral IVs 2. Central line if indicated Level 2 follow-up Sunday Mccord MD Nov 17, 2017 08:07
[2017-11-17] MEDS: RESP: BUDESONIDE 0.5 MG/2 ML NEB NEB SCH ×2 (08:15→20:11)
[2017-11-17] MEDS ORDERED: POTASSIUM CHLORIDE 20 MEQ PWD PACKET PO ONE (08:15)
[2017-11-17] MEDS: CLOPIDOGREL 75 MG TAB PO SCH (08:25)
[2017-11-17] MEDS: ASPIRIN 81 MG CHEW TAB PO SCH (08:25)
[2017-11-17] MEDS: FUROSEMIDE 40 MG TAB PO SCH (08:25)
[2017-11-17] MEDS: FERROUS SULFATE 325 MG (65 MG ELEMENTAL IRON) TAB PO SCH ×2 (08:25→20:23)
[2017-11-17] MEDS: DOCUSATE SODIUM 100 MG/10 ML UDC PO SCH ×2 (08:25→20:23)
[2017-11-17] MEDS: LACTULOSE SYRUP 20 GM/30 ML CUP PO SCH (08:25)
[2017-11-17] MEDS: LORATADINE 10 MG TAB PO SCH (08:25)
[2017-11-17] MEDS: FAMOTIDINE 20 MG TAB PO SCH ×2 (08:25→20:24)
[2017-11-17] MEDS: SERTRALINE HCL 100 MG TAB PO SCH (08:25)
[2017-11-17] MEDS: SENNOSIDES SYRUP 8.8 MG/5 ML CUP PO SCH ×2 (08:26→20:25)
[2017-11-17] MEDS: POLYETHYLENE GLYCOL 17 GM PKG PO SCH ×2 (08:26→20:24)
[2017-11-17] MEDS: MUPIROCIN 2% OINT 1 APPLIC/GM SYR EACH NARE SCH ×2 (08:26→20:23)
[2017-11-17] MEDS: SODIUM CHLORIDE 0.9% FLUSH 10 ML FLUSH IV FLUSH SCH ×2 (08:27→20:23)
[2017-11-17] MEDS: INSULIN DETEMIR 100 UNITS/ML VIAL SQ SCH ×2 (08:27→20:25)
[2017-11-17] MEDS: CHLORHEXIDINE 0.12% (ORAL KIT) 15 ML CUP MT SCH ×2 (08:27→20:22)
[2017-11-17] MEDS: NYSTATIN 100,000 UNIT/GM CREAM 15 GM TOPICAL SCH ×2 (08:27→20:25)
[2017-11-17] MEDS: POTASSIUM CHLOR 10 MEQ PREMIX 100 ML IV SCH ×3 (08:32→12:02)
[2017-11-17] MEDS: ARTIFICIAL TEAR OPTH EACH EYE SCH ×2 (09:00→20:23)
--- NOTE | 2017-11-17 10:28 | HHI.FPPN ---
Subjective Remarks 66 yo female with many comorbidities including CHF, COPD, morbid obesity, diabetes admitted for shortness of breath now in acute hypoxic respiratory failure requiring intubation and ventilatory support. This morning is on sedation vacation and able to answer yes/no questions. Her breathing is stable. She is anxious. Objective Vitals Vital Signs Date Time Temp Pulse Resp B/P (MAP) Pulse Ox O2 Delivery O2 Flow Rate FiO2 11/17/17 08:17 100 35 11/17/17 08:00 97.9 64 19 136/63 (87) 100 11/17/17 08:00 35 11/17/17 08:00 64 11/17/17 06:00 63 11/17/17 05:05 98 35 11/17/17 04:00 99.0 63 18 128/73 (91) 100 11/17/17 04:00 63 11/17/17 04:00 35 11/17/17 02:00 61 11/17/17 00:53 100 35 11/17/17 00:00 98.2 61 18 147/70 (95) 100 11/17/17 00:00 35 11/17/17 00:00 61 11/16/17 22:00 68 11/16/17 20:00 99.0 73 18 142/71 (94) 96 11/16/17 20:00 35 11/16/17 20:00 73 11/16/17 19:28 100 35 11/16/17 18:00 61 11/16/17 16:00 99 35 11/16/17 16:00 35 11/16/17 16:00 74 11/16/17 16:00 98.2 79 28 133/65 (87) 95 11/16/17 15:53 100 35 11/16/17 14:00 62 11/16/17 13:08 100 35 11/16/17 12:00 98.3 64 20 137/68 (91) 100 11/16/17 12:00 35 11/16/17 12:00 64 I/O 11/16/17 11/16/17 11/16/17 11/17/17 11/17/17 11/17/17 07:00 15:00 23:00 07:00 15:00 23:00 Intake Total 1115 ml 1230 ml 2225 ml 1228 ml Output Total 1200 ml 1125 ml 1700 ml Balance -85 ml 1230 ml 1100 ml -472 ml IV Total 250 ml 1230 ml 1529 ml 512 ml Tube Feeding 745 ml 606 ml 656 ml Tube Irrigant 90 ml Other 120 ml 60 ml Output Urine Total 1200 ml 1125 ml 1700 ml # Bowel Movements 0 0 Result Diagram: 11/17/17 0638 11/17/17 0638 Imaging Last Impressions Chest X-Ray 11/17/17 0600 Signed Impressions: CONCLUSION: Small lung volumes and a prominent cardiac silhouette are unchanged. Brain MRI 11/16/17 0000 Signed Impressions: CONCLUSION: 1. 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 No recent infarct. No mass effect or shift. No hydrocephalus. Mild to moderate chronic ischemic changes in the periventricular white matter also appear similar to prior CT. Objective Remarks CONSTITUTIONAL/GEN: Morbidly obese woman intubated. Opens eyes spontaneously. On soft restraints. LUNGS: Referred upper airway sounds, otherwise CTAB. CARDIOVASCULAR: Heart sounds distant due to body habitus. NRRR by telemetry. GI/ABD: obese and protuberant. SKIN: color normal, no rashes noted. HEME/LYMPH: no bruising, petechia. MUSC: Right lower extremity is bandaged w/gauze and shows deformity of the right toes, muscle atrophy and hyperpigmentation of the leg. Some hyperpigmentation seen at the ankle of the left foot. Stable from prior exams. Medications and IVs Last Impressions Chest X-Ray 11/17/17 0600 Signed Impressions: CONCLUSION: Small lung volumes and a prominent cardiac silhouette are unchanged. Brain MRI 11/16/17 0000 Signed Impressions: CONCLUSION: 1. 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 No recent infarct. No mass effect or shift. No hydrocephalus. Mild to moderate chronic ischemic changes in the periventricular white matter also appear similar to prior CT. A/P Assessment and Plan 66 y/o F w/hx of respiratory failure requiring intubation, COPD, CHF, and morbid obesity presenting with: Problem List: (1) Respiratory failure ICD Codes: J96.90 - Respiratory failure, unspecified, unspecified whether with hypoxia or hypercapnia Status: Acute Plan: Intubated (11/10-) Causes: ARSEN, obesity hypoventilation, poorly controlled COPD, possible HCAP CXR today unchanged, showing bilateral pulmonary opacities. Blood cx (11/09) +staph Haemolyticus Sputum cx (11/10) MRSA + Critical care consulted, appreciate assistance: Continue ventilator support with spontaneous breathing trials as tolerated ID consulted. Appreciate recs: Continue Vancomycin (11/10 - present) Zosyn DC'd (11/10-11/12) F/u repeat cultures Pulm consulted, recs appreciated: con't current therapy, bronchodilator prn Palliative care consulted (multiple comorbidities and hospitalizations), appreciate assistance Palliative to see patient again today and clarify goals/wishes Primary team will contact sister sister (decision maker) to provide care summary Per last note 11/14: Full code, goals of care remain aggressive Per note on 11/13: "Patient attempting to communicate by mouthing words and appears to nod and shake her head appropriately to questions. Patient persistently pointing towards her endotracheal tube. Asked patient if she wanted to be suctioned and she shook her head for "no". Patient indicating with her hand to "pull out" ETT. Explained the purpose of endotracheal tube to patient. Explained ongoing CPAP trials and concerns regarding failing of CPAP trials as well as probable discussions of tracheostomy placement and PEG tube placement if patient is not able to be medically extubated. Patient vigorously shook her head and was mouthing "no". Asked patient if she would want a tracheostomy and a PEG placed if she is not able to be medically extubated, patient shook her head for "no". Asked patient if in the event that she is medically extubated and is in respiratory distress whether she would like to be reintubated and she shook her head for "no". Asked patient if she understood that without such interventions(intubation) being performed she will most likely and she nodded head for "yes". Notified patient that further discussions will be done with her sister Melissa, and she nodded head in acknowledgement." (2) Witnessed seizure-like activity ICD Codes: R56.9 - Unspecified convulsions Status: Resolved Plan: Differential: Infection versus pseudo seizure versus agitation MRI and EEG without acute findings Ativan as needed neurochecks Continue to monitor further episodes, consider neurology consult (3) CHF (congestive heart failure) ICD Codes: I50.9 - CHF (congestive heart failure) Status: Chronic Plan: STABLE Takes home Lasix, lisinopril, isosorbide dinitrate PO Con't Lasix 40 mg daily Anti-hypertensives held at this time due to low BP (4) Leg wound, right ICD Codes: S81.801A - Leg wound, right Status: Chronic Plan: STABLE Hx of MRSA positive infxn Hx of childhood injury, on disability Wound ostomy consulted, appreciate recs (5) Sacral decubitus ulcer, stage II ICD Codes: L89.152 - Pressure ulcer of sacral region, stage 2 Plan: STABLE Pressure ulcer prevention Wound ostomy nurse consulted for recs, appreciate assistance (6) COPD (chronic obstructive pulmonary disease) ICD Codes: J44.9 - COPD (chronic obstructive pulmonary disease) Status: Chronic Plan: Home: Duonebs TID, Symbicort 2 puffs BID Currently intubated DuoNeb Q4H (7) Sleep apnea ICD Codes: G47.30 - Sleep apnea, unspecified Status: Chronic Plan: Requires CPAP while asleep at home Currently intubated; will resume CPAP if/when extubated (8) Diabetes mellitus ICD Codes: E11.9 - Type 2 diabetes mellitus without complications Status: Chronic Plan: Home: Novolog SS and lantus 10 units, sitagliptin 100 mg daily Bedside glucose hovering around 300 Keep glucose <180 High dose SSI Continue 15 units lantus BID (9) Chronic leg pain ICD Codes: M79.606 - Pain in leg, unspecified; G89.29 - Other chronic pain Plan: Home med oxycodone 5 mg and Gabapentin held to prevent further drowsiness and respiratory compromise (10) Coronary artery disease ICD Codes: I25.10 - Atherosclerotic heart disease of [place] coronary artery without angina pectoris Status: Chronic Plan: Con't home plavix and atorvastatin Hold ASA (11) Anxiety ICD Codes: F41.9 - Anxiety disorder, unspecified Plan: Con't home Ativan TID PRN (12) Depression ICD Codes: F32.9 - Major depressive disorder, single episode, unspecified Status: Chronic Plan: con't home zoloft daily (13) Iron deficiency anemia ICD Codes: D50.9 - Iron deficiency anemia, unspecified Status: Chronic Plan: Con't ferrous sulfate Laxatives and stool softeners PRN (14) FEN Plan: Fluids: none for now, careful to avoid fluid overload Electrolytes: none Nutrition: Tube feeds @50 mls/hr, high protein DVT prophy: Heparin GI prophy: Pepcid Dispo: pending CPAP trials. Per palliative care discussion patient would not want tracheostomy. Likely will have extended hospital course with eventual discharge to SNF or will opt for hospice and likely pass away after extubation. Problem Qualifiers (1) Respiratory failure: Qualified Codes: J96.01 - Acute respiratory failure with hypoxia (2) CHF (congestive heart failure): Qualified Codes: I50.9 - Heart failure, unspecified (3) Leg wound, right: Qualified Codes: S81.801A - Unspecified open wound, right lower leg, initial encounter (4) COPD (chronic obstructive pulmonary disease): Qualified Codes: J44.9 - Chronic obstructive pulmonary disease, unspecified (5) Sleep apnea: Qualified Codes: G47.30 - Sleep apnea, unspecified (6) Diabetes mellitus: Qualified Codes: E11.8 - Type 2 diabetes mellitus with unspecified complications (7) Chronic leg pain: Qualified Codes: M79.604 - Pain in right leg; M79.605 - Pain in left leg; G89.29 - Other chronic pain (8) Coronary artery disease: (9) Depression: Qualified Codes: F32.9 - Major depressive disorder, single episode, unspecified Eddie Partida MD R2 Nov 17, 2017 10:28 am
[2017-11-17 11:09] LABS: BACTERIA, URINE OCC /hpf; BILIRUBIN, URINE NEG (NEG); BLOOD, URINE SMALL (NEG); GLUCOSE,URINE 50 mg/dL (NEG); KETONE, URINE NEG (NEG); MUCUS URINE FEW /lpf (OCC); NITRITE,URINE NEG (NEG); SQUAMOUS EPITHELIAL CELL URINE 2 /hpf (0-5); URINE COLOR YELLOW (YELLW/STRAW); URINE LEUKOCYTE ESTERASE NEG (NEG)
[2017-11-17] MEDS: VANCOMYCIN INJ 2,000 MG in SODIUM CHLORID 0.9% 500 ML INJ 500 ML IV SCH (12:00)
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
[2017-11-17] MEDS: ATORVASTATIN 40 MG TAB PO SCH (20:23)
--- NOTE | 2017-11-17 20:38 | HHI.IDPN ---
Subjective Subjective Remarks remians on vent afebrile blood clx are P Antibiotics vanco Allergies: Coded Allergies: *MDRO Multi-Drug Resistant Organism (Verified Adverse Reaction, Unknown, MRSA, 11/09/17) MRSA PCR positive - 06/28/2015 & 06/03/16 Objective . Vital Signs Date Time Temp Pulse Resp B/P (MAP) Pulse Ox O2 Delivery O2 Flow Rate FiO2 11/17/17 18:00 92 11/17/17 16:00 35 11/17/17 16:00 99.3 113 26 120/57 (78) 99 11/17/17 16:00 113 11/17/17 15:29 100 35 11/17/17 14:00 90 11/17/17 12:00 97.8 69 28 98/53 (68) 100 11/17/17 12:00 35 11/17/17 12:00 69 11/17/17 11:48 100 35 11/17/17 10:00 69 11/17/17 08:17 100 35 11/17/17 08:00 97.9 64 19 136/63 (87) 100 11/17/17 08:00 35 11/17/17 08:00 64 11/17/17 06:00 63 11/17/17 05:05 98 35 11/17/17 04:00 99.0 63 18 128/73 (91) 100 11/17/17 04:00 63 11/17/17 04:00 35 11/17/17 02:00 61 11/17/17 00:53 100 35 11/17/17 00:00 98.2 61 18 147/70 (95) 100 11/17/17 00:00 35 11/17/17 00:00 61 11/16/17 22:00 68 11/17/17 11/17/17 11/18/17 15:00 23:00 07:00 Intake Total 200 ml 620 ml Output Total 1000 ml Balance 200 ml -380 ml IV Total 200 ml 620 ml Output Urine Total 1000 ml # Bowel Movements 1 . Laboratory Tests Test 11/16/17 05:25 11/17/17 06:38 White Blood Count 11.1 TH/MM3 10.8 TH/MM3 Red Blood Count 4.75 MIL/MM3 4.73 MIL/MM3 Hemoglobin 10.5 GM/DL 10.5 GM/DL Hematocrit 34.7 % 34.4 % Mean Corpuscular Volume 72.9 FL 72.9 FL Mean Corpuscular Hemoglobin 22.2 PG 22.2 PG Mean Corpuscular Hemoglobin Concent 30.4 % 30.4 % Red Cell Distribution Width 17.3 % 17.5 % Platelet Count 301 TH/MM3 314 TH/MM3 Mean Platelet Volume 9.3 FL 9.0 FL Neutrophils (%) (Auto) 76.7 % 72.4 % Lymphocytes (%) (Auto) 14.2 % 15.3 % Monocytes (%) (Auto) 8.9 % 11.1 % Eosinophils (%) (Auto) 0.0 % 0.6 % Basophils (%) (Auto) 0.2 % 0.6 % Neutrophils # (Auto) 8.5 TH/MM3 7.8 TH/MM3 Lymphocytes # (Auto) 1.6 TH/MM3 1.6 TH/MM3 Monocytes # (Auto) 1.0 TH/MM3 1.2 TH/MM3 Eosinophils # (Auto) 0.0 TH/MM3 0.1 TH/MM3 Basophils # (Auto) 0.0 TH/MM3 0.1 TH/MM3 CBC Comment DIFF FINAL DIFF FINAL Differential Comment Laboratory Tests Test 11/16/17 05:25 11/17/17 06:38 Blood Urea Nitrogen 24 MG/DL 19 MG/DL Creatinine 0.76 MG/DL 0.65 MG/DL Estimat Glomerular Filtration Rate 92 ML/MIN 111 ML/MIN Random Glucose 208 MG/DL Total Protein 7.0 GM/DL Albumin 2.3 GM/DL Calcium Level 8.6 MG/DL Phosphorus Level 2.5 MG/DL Magnesium Level 2.1 MG/DL Alkaline Phosphatase 87 U/L Aspartate Amino Transf (AST/SGOT) 16 U/L Alanine Aminotransferase (ALT/SGPT) 33 U/L Total Bilirubin 0.5 MG/DL Sodium Level 140 MEQ/L Potassium Level 3.2 MEQ/L Chloride Level 107 MEQ/L Carbon Dioxide Level 22.2 MEQ/L Anion Gap 11 MEQ/L Microbiology Date/Time Source Procedure Growth Status 11/17/17 13:04 Blood Peripheral Aerobic Blood Culture Pending Received 11/17/17 13:04 Blood Peripheral Anaerobic Blood Culture Pending Received 11/17/17 12:53 Blood Peripheral Aerobic Blood Culture Pending Received 11/17/17 12:53 Blood Peripheral Anaerobic Blood Culture Pending Received Imaging Last Impressions Chest X-Ray 11/17/17 0600 Signed Impressions: CONCLUSION: Small lung volumes and a prominent cardiac silhouette are unchanged. Brain MRI 11/16/17 0000 Signed Impressions: CONCLUSION: 1. 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 No recent infarct. No mass effect or shift. No hydrocephalus. Mild to moderate chronic ischemic changes in the periventricular white matter also appear similar to prior CT. Physical Exam CONSTITUTIONAL/GENERAL: This is an adequately nourished patient, in no apparent distress. TUBES/LINES/DRAINS: CARDIOVASCULAR: Regular rate and rhythm without murmurs, gallops, or rubs. No JVD. Peripheral pulses symmetric. RESPIRATORY/CHEST: Symmetric, unlabored respirations. Clear to auscultation. Breath sounds equal bilaterally. No wheezes, rales, or rhonchi. GASTROINTESTINAL: Abdomen soft, non-tender, nondistended. No hepato-splenomegaly , or palpable masses. No guarding. Bowel sounds present. GENITOURINARY: Without palpable bladder distension. External catheter in place. MUSCULOSKELETAL: Extremities without clubbing, cyanosis, or edema. No joint tenderness or effusion noted. No calf tenderness. No mottling or clubbing. Wound R LE, dressin g in place NEUROLOGICAL: responsive purposeful PSYCHIATRIC: unable to assess Assessment & Plan Remarks Pt with COPD presentes with Hypercapnic acute resp failure VDRF, tolerating CPAP B/l pulm infiltrates - PNA, - MRSA Chronic RLE wound, MRSA Coag neg staph bacteremia, / - doubt clinical significance depression. On zoloft. CAn't use zyvox cont vancomycin repeat sputum clx and CXR fu P blood clx Angeles Nelson MD Nov 17, 2017 20:38
[2017-11-18] VITALS (18 sets, daily range): BP systolic 122–142; BP diastolic 57–78; PULSE 69–82; RESP 15–31; TEMP 97.5–99.1; O2SAT 98–100
[2017-11-18] MEDS: HEPARIN SODIUM - SQ 10,000 UNITS/ML VIAL SQ SCH ×2 (00:08→11:26)
[2017-11-18] MEDS: ALPRAZolam 0.5 MG TAB PO PRN ×2 (00:58→22:15)
[2017-11-18] MEDS: DEXMEDETOMIDINE INJ 1,000 MCG in SODIUM CHLOR 0.9% 250 ML INJ 240 ML IV PRN ×5 (02:30→22:19)
[2017-11-18] MEDS: INSULIN ASPART SUPPLEMENTAL SCALE SQ SCH ×5 (03:30→20:01)
[2017-11-18] MEDS: RESP: ALBUTEROL 2.5 MG/IPRATROPIUM 0.5 MG NEB (SCH) NEB ×6 (03:44→22:39)
[2017-11-18] MEDS: VANCOMYCIN INJ 2,000 MG in SODIUM CHLORID 0.9% 500 ML INJ 500 ML IV SCH (05:43)
--- NOTE | 2017-11-18 06:00 | RADRPT ---
EXAM DATE: 11/18/2017 5:22 AM EDT AGE/SEX: 66 years / Female INDICATIONS: Short of breath. CLINICAL DATA: This is the patient's subsequent encounter. Patient reports that signs and symptoms h ave been present for 2 weeks and indicates a pain score of 0/10. MEDICAL/SURGICAL HISTORY: Diabetes mellitus type II. Hypertension. Hysterectomy. sec tion. COMPARISON: [facility], CHEST SINGLE AP, 11/17/2017. . FINDINGS: The endotracheal tube, nasogastric tube are in good position. There is perihilar vascular congestion. The heart is enlarged. Aorta remains tortuous. CONCLUSION: Stable single view the chest. Persistent perihilar vascular congestion with enlarged heart. Electronically signed by: Maverick Maria MD 11/18/2017 5:59 AM EDT
--- NOTE | 2017-11-18 06:01 | RADRPT ---
EXAM DATE: 11/18/2017 5:19 AM EDT AGE/SEX: 66 years / Female INDICATIONS: Ileus. CLINICAL DATA: This is the patient's subsequent encounter. Patient reports that signs and symptoms h ave been present for 2 weeks and indicates a pain score of 0/10. MEDICAL/SURGICAL HISTORY: Diabetes mellitus type II. Hypertension. section. Hysterec anne-marie. COMPARISON: No prior exams available for comparison. FINDINGS: The nasogastric tube is coiled within the stomach. There is some residual air in the stomach. Small amount of air throughout the small and large bowel. No dilated loops are seen. CONCLUSION: The NG tube in good position. Bowel gas pattern is unremarkable Electronically signed by: Maverick Maria MD 11/18/2017 6:00 AM EDT
[2017-11-18] MEDS ORDERED: POTASSIUM CHLORIDE 10 MEQ CONTROLLED RELEASE TAB PO ONE (07:00)
[2017-11-18 07:28] LABS: ALBUMIN 2.2 GM/DL (3.4-5.0); AST (GOT) 24 U/L (15-37); BICARBONATE 18.4 MEQ/L (21.0-32.0); CALCIUM 8.4 MG/DL (8.5-10.1); CHLORIDE 106 MEQ/L (98-107); CREATININE 0.67 MG/DL (0.50-1.00); GLOMERULAR FILTRATION RATE 107 ML/MIN (>89); GLUCOSE,RANDOM 125 MG/DL (74-106); MAGNESIUM 1.8 MG/DL (1.5-2.5); SODIUM (NA) 135 MEQ/L (136-145)
[2017-11-18 07:29] LABS: ALT (GPT) 35 U/L (10-53); PHOSPHORUS 2.7 MG/DL (2.5-4.9)
[2017-11-18 07:32] LABS: ALKALINE PHOSPHATASE 78 U/L (45-117); TOTAL BILIRUBIN ADULT 0.6 MG/DL (0.2-1.0); TOTAL PROTEIN 6.8 GM/DL (6.4-8.2)
[2017-11-18 07:42] LABS: BLOOD UREA NITROGEN 16 MG/DL (7-18)
[2017-11-18] MEDS: RESP: BUDESONIDE 0.5 MG/2 ML NEB NEB SCH ×2 (08:58→19:41)
[2017-11-18] MEDS: NYSTATIN 100,000 UNIT/GM CREAM 15 GM TOPICAL SCH ×2 (09:00→21:00)
[2017-11-18] MEDS: ARTIFICIAL TEAR OPTH EACH EYE SCH ×2 (09:00→20:01)
[2017-11-18] MEDS: SENNOSIDES SYRUP 8.8 MG/5 ML CUP PO SCH ×2 (09:00→20:32)
[2017-11-18] MEDS: INSULIN DETEMIR 100 UNITS/ML VIAL SQ SCH ×2 (09:00→20:02)
[2017-11-18] MEDS: POLYETHYLENE GLYCOL 17 GM PKG PO SCH ×2 (09:35→20:32)
[2017-11-18] MEDS: DOCUSATE SODIUM 100 MG/10 ML UDC PO SCH ×2 (09:35→20:32)
[2017-11-18] MEDS: SERTRALINE HCL 100 MG TAB PO SCH (09:35)
[2017-11-18] MEDS: FUROSEMIDE 40 MG TAB PO SCH (09:35)
[2017-11-18] MEDS: LACTULOSE SYRUP 20 GM/30 ML CUP PO SCH (09:35)
[2017-11-18] MEDS: ASPIRIN 81 MG CHEW TAB PO SCH (09:36)
[2017-11-18] MEDS: FAMOTIDINE 20 MG TAB PO SCH ×2 (09:36→20:02)
[2017-11-18] MEDS: CLOPIDOGREL 75 MG TAB PO SCH (09:36)
[2017-11-18] MEDS: LORATADINE 10 MG TAB PO SCH (09:36)
[2017-11-18] MEDS: FERROUS SULFATE 325 MG (65 MG ELEMENTAL IRON) TAB PO SCH ×2 (09:37→20:02)
[2017-11-18] MEDS: SODIUM CHLORIDE 0.9% FLUSH 10 ML FLUSH IV FLUSH SCH ×2 (09:38→20:02)
[2017-11-18] MEDS: MUPIROCIN 2% OINT 1 APPLIC/GM SYR EACH NARE SCH ×2 (09:39→20:02)
[2017-11-18] MEDS: CHLORHEXIDINE 0.12% (ORAL KIT) 15 ML CUP MT SCH ×2 (09:39→20:00)
[2017-11-18] MEDS ORDERED: POTASSIUM CHLORIDE 25 MEQ EFFERVESCENT TAB PO ONE (09:45)
--- NOTE | 2017-11-18 11:09 | HHI.CCPN ---
Subjective Remarks/Hospital Course 66-year-old morbidly obese female with history of COPD on 3 L nasal cannula home O2, obesity hypoventilation syndrome, CHF, CAD (on plavix) and sleep apnea admitted with shortness of breath and hypoxia. Per chart review the patient's sister states that recently, CPAP machine has not been working and that patient had been complaining about it. Last night, machine was malfunctioning again, and patient awakened in the middle of the night with SOB. She was found to be hypoxemic with saturation in 70s-80s. He was initially placed on BiPAP with no improvement and worsening hypercarbic respiratory acidosis. Patient was intubated for acute hypercapnic respiratory failure in the ICU. 11/10: The patient remains intubated and sedated. Endotracheal tube retracted several centimeters bilateral breath sounds equal. Patient continues on propofol and fentanyl for sedation. 11/11: Afebrile. No acute issues overnight. The patient's glucose level remains elevated. Moderate dose insulin sliding scale initiated. Discussion with the daughter, requesting definition of goals of care. Palliative care has been consult. CPAP trials were initiated, were unsuccessful today. Pulmonology has been consulted. 11/12: Afebrile. The patient was placed on high dose sliding scale last night, glucose levels remain elevated. Levimir 10u BID added to medication regimen. The patient has been placed on Precedex to facilitate ventilator weaning process and tolerated CPAP for approximately 3 hours last evening. 11/13: Afebrile. This a.m. the patient was noted to be hypotensive after CPAP trials and reinitiation of Precedex infusion. MAP was noted to be in the 50's. Patient is noted to having large bowel movements. The patient received bolus fluids of 1 L with resolution. The patient is awake nodding head to yes and no questions. 11/14: The patient continues on CPAP trials this afternoon. The patient continues on the Precedex infusion for ventilator synchrony currently at 0.6 continue to titrate upward. The patient is alert oriented attempting to talk. CPAP trials greater than 1 hour at this time. No further episodes of hypotension. 11/15: still on cpap. too somnolent and failing SBT trials. 11/16: T-max 100. Currently 99.4. Seizure yesterday. Currently on PSV trial at 35%. Follows commands. No bowel movement. Tube feeds at goal at 50 cc an hour 11/17: Afebrile. No bowel movement 3 days. Arousable on dexmedetomidine drip at 1.5 mg/kg/min. No new seizure activity. EEG and MRI brain reviewed. No acute findings. 11/18: No events overnight. Patient remains intubated, on Precedex infusion at 1.5, lethargic but very easily arousable. She is currently on pressure support 12/5, with respiratory rate in the mid 20s. She is negative almost 2 L over the last 24 hours. T-max of 99.7. Objective Vital Signs Date Time Temp Pulse Resp B/P (MAP) Pulse Ox O2 Delivery O2 Flow Rate FiO2 11/18/17 10:00 77 11/18/17 09:05 35 11/18/17 09:02 100 11/18/17 09:02 Ventilator 11/18/17 08:00 97.5 18 131/60 (83) Intake and Output 11/18/17 11/18/17 11/19/17 08:00 16:00 00:00 Intake Total 1125 ml Output Total 3200 ml Balance -2075 ml Result Diagram: 11/17/17 0638 11/18/17 0640 Other Results Microbiology Date/Time Source Procedure Growth Status 11/17/17 13:04 Blood Peripheral Aerobic Blood Culture Pending Received 11/17/17 13:04 Blood Peripheral Anaerobic Blood Culture Pending Received 11/17/17 12:53 Blood Peripheral Aerobic Blood Culture Pending Resulted 11/17/17 12:53 Blood Peripheral Anaerobic Blood Culture - Final QNS - SEE AEROBE REPORT Resulted Imaging Last 24 hours Impressions Chest X-Ray 11/18/17 06 Signed Impressions: CONCLUSION: Stable single view the chest. Persistent perihilar vascular congestion with enl arged heart. Abdomen X-Ray 11/18/17 06 Signed Impressions: CONCLUSION: The NG tube in good position. Bowel gas pattern is unremarkable Last Impressions Chest X-Ray 11/17/17 06 Signed Impressions: CONCLUSION: Small lung volumes and a prominent cardiac silhouette are unchanged. Brain MRI 11/16/17 0000 Signed Impressions: CONCLUSION: 1. 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 No recent infarct. No mass effect or shift. No hydrocephalus. Mild to moderate chronic ischemic changes in the periventricular white matter also appear similar to prior CT. Objective Remarks GENERAL: Elderly lady, obese, ill-appearing, intubated. SKIN: Warm and dry. HEAD: Normocephalic. EYES: No scleral icterus. No injection or drainage. Pupils are equal and reactive. NECK: Supple, trachea midline. No neck vein distention. Orally intubated. CARDIOVASCULAR: Regular rate and rhythm without murmurs, gallops, or rubs. RESPIRATORY: Scattered coarse breath sounds bilateral. Good air entry. No wheezes. GASTROINTESTINAL: Abdomen soft, non-tender, obese nondistended. MUSCULOSKELETAL: No cyanosis, or edema. Right lower extremity below the knee with significant atrophy with dressing on wound C/D/I NEURO EXAM: Opens eyes to voice stimuli, follows some commands, wiggles toes, shows thumbs up, left stronger than right. A/P Problem List: (1) HCAP (healthcare-associated pneumonia) ICD Code: J18.9 - Pneumonia, unspecified organism Assessment and Plan Neuro/Psych: Depression disorder NOS Chronic benzodiazepine use Chronic opioid use Peripheral neuropathy Anxiety Seizure disorder NOS Allergic rhinitis Currently on dexmedetomidine drip at 1.5 mcg/kg/min to maintain sedation/ analgesia Goal of RASS 0 Sertraline 100 mg daily/home medication resumed for depression Lorazepam 0.5 mg every 8 hours/medication anxiety Seizure precautions EEG 11/16 - sleep state. Rare tiny sharp transient. Brief episodes of very minimal encephalopathy. No active seizures. Clinical correlation. MRI brain 11/16 -remote small infarct in the right parietal lobe similar in size to a prior CT from September 2016. No recent infarct. No mass effect or shift. No hydrocephalus. Mild to moderate chronic ischemic changes in the periventricular white matter also appear similar to prior CT Respiratory: Acute on chronic respiratory failure -slowly improving, intermittently tolerating a speaking History of HCAP 08/27/17 Healthcare associated pneumonia COPD OHS/ ARSEN Currently on PSV trial 05/06 at 35%, slightly tachypneic Ventilator bundle and bronchodilators Budesonide/ Formoterol Fumarate 160/4.52 puffs twice daily on hold while intubated Continue SBT for now. Will assess later the patient is ready for extubation Pulmonology following Cardiovascular: Chronic diastolic heart failure History of dyslipidemia History of right iliac artery stent placement Essential hypertension CAD Continue furosemide 40 mg/day Continue home dosing clopidogrel 75 mg daily 81 mg daily aspirin and atorvastatin 40 mg daily for dyslipidemia Antihypertensives currently on hold at this time, resume when clinically indicated These include isosorbide mononitrate 30 mg daily and lisinopril 5 mg by mouth daily Renal: CYNTHIA -resolved -- Strict I/Os . Maintain Wise catheter FEN/GI: Mild protein calorie malnutrition with hypoalbuminemia Diarrhea resolved now with constipation Hypokalemia Replete electrolytes per protocol Tube feeds Vital Hi Protein @ 50cc/hr/per nutrition recommendations Famotidine 20 mg daily for GI prophylaxis Docusate sodium 100 mg twice daily/senna 820 mg twice daily for bowel regimen Heme/ID: Microcytic anemia Bacteremia gram-positive likely contaminant HCAP [id number] 11/09-blood culture staph hemolyticus 11/10 sputum culture-MRSA repeat 11/14 pending Continue Vanco, followed by ID Repeat cultures are currently pending Endocrine: Diabetes mellitus Sliding scale insulin per ICU protocol. Increased to high dose sliding scale Novolog every 4 hours with insulin detemir 15 units subcu twice daily MSK: Elevated BMI 54.3 PT evaluate and treat range of motion Prophylaxis: GI Prophylaxis Famotidine BID DVT Prophylaxis -- SCDs Heparin 5000 SQ BID Lines: Peripheral IVs 2. Central line if indicated Level 2 follow-up Jonathan Centeno MD Nov 18, 2017 11:09
[2017-11-18 12:05] LABS: AUTOMATED NEUTROPHIL # 7.8 TH/MM3 (1.8-7.7); BASOPHIL # 0.1 TH/MM3 (0-0.2); BASOPHIL % 0.5 % (0.0-2.0); EOSINOPHIL # 0.1 TH/MM3 (0-0.4); EOSINOPHIL % 0.9 % (0.0-4.0); HEMATOCRIT 34.9 % (35.0-46.0); HEMOGLOBIN 10.4 GM/DL (11.6-15.3); LYMPHOCYTE # 1.8 TH/MM3 (1.0-4.8); MEAN CELL VOLUME 73.2 FL (80.0-100.0); MEAN CORPUSCULAR HEMOGLOBIN 21.7 PG (27.0-34.0); MEAN PLATELET VOLUME 8.8 FL (7.0-11.0); MONO % 12.2 % (0.0-8.0); MONOCYTE # 1.3 TH/MM3 (0-0.9); NEUT % 70.4 % (16.0-70.0); PLATELET COUNT 321 TH/MM3 (150-450); RED BLOOD COUNT 4.76 MIL/MM3 (4.00-5.30); RED CELL DISTRIBUTION WIDTH 17.8 % (11.6-17.2)
[2017-11-18 12:13] LABS: MEAN CORPUSCULAR HGB CONC 29.7 % (32.0-36.0)
--- NOTE | 2017-11-18 14:28 | HHI.IDPN ---
Subjective Subjective Remarks remians on vent, tolerates CPAP yday tolerated CPAP x 8 hrs afebrile blood clx are negative @ 1 day Antibiotics vanco Allergies: Coded Allergies: *MDRO Multi-Drug Resistant Organism (Verified Adverse Reaction, Unknown, MRSA, 11/09/17) MRSA PCR positive - 06/28/2015 & 06/03/16 Objective . Vital Signs Date Time Temp Pulse Resp B/P (MAP) Pulse Ox O2 Delivery O2 Flow Rate FiO2 11/18/17 12:07 100 35 11/18/17 12:00 35 11/18/17 12:00 77 11/18/17 12:00 98.8 77 24 122/57 (78) 98 11/18/17 10:00 77 11/18/17 09:05 35 11/18/17 09:02 100 35 11/18/17 09:02 35 11/18/17 09:02 100 Ventilator 35 11/18/17 08:00 77 11/18/17 08:00 77 11/18/17 08:00 35 11/18/17 08:00 97.5 77 18 131/60 (83) 100 11/18/17 06:00 77 11/18/17 04:00 35 11/18/17 04:00 71 11/18/17 04:00 99.1 69 18 141/75 (97) 99 11/18/17 03:44 100 35 11/18/17 02:00 79 11/18/17 00:00 71 11/18/17 00:00 98.5 70 15 124/70 (88) 100 11/18/17 00:00 35 11/17/17 23:31 99 35 11/17/17 22:00 67 11/17/17 20:10 100 35 11/17/17 20:10 35 11/17/17 20:00 35 11/17/17 20:00 99.7 66 13 105/57 (73) 100 11/17/17 20:00 66 11/17/17 18:00 92 11/17/17 16:00 35 11/17/17 16:00 99.3 113 26 120/57 (78) 99 11/17/17 16:00 113 11/17/17 15:29 100 35 . Laboratory Tests Test 11/17/17 06:38 11/18/17 11:40 White Blood Count 10.8 TH/MM3 11.0 TH/MM3 Red Blood Count 4.73 MIL/MM3 4.76 MIL/MM3 Hemoglobin 10.5 GM/DL 10.4 GM/DL Hematocrit 34.4 % 34.9 % Mean Corpuscular Volume 72.9 FL 73.2 FL Mean Corpuscular Hemoglobin 22.2 PG 21.7 PG Mean Corpuscular Hemoglobin Concent 30.4 % 29.7 % Red Cell Distribution Width 17.5 % 17.8 % Platelet Count 314 TH/MM3 321 TH/MM3 Mean Platelet Volume 9.0 FL 8.8 FL Neutrophils (%) (Auto) 72.4 % 70.4 % Lymphocytes (%) (Auto) 15.3 % 16.0 % Monocytes (%) (Auto) 11.1 % 12.2 % Eosinophils (%) (Auto) 0.6 % 0.9 % Basophils (%) (Auto) 0.6 % 0.5 % Neutrophils # (Auto) 7.8 TH/MM3 7.8 TH/MM3 Lymphocytes # (Auto) 1.6 TH/MM3 1.8 TH/MM3 Monocytes # (Auto) 1.2 TH/MM3 1.3 TH/MM3 Eosinophils # (Auto) 0.1 TH/MM3 0.1 TH/MM3 Basophils # (Auto) 0.1 TH/MM3 0.1 TH/MM3 CBC Comment DIFF FINAL DIFF FINAL Differential Comment Laboratory Tests Test 11/17/17 06:38 11/18/17 06:40 Blood Urea Nitrogen 19 MG/DL 16 MG/DL Creatinine 0.65 MG/DL 0.67 MG/DL Random Glucose 208 MG/DL 125 MG/DL Total Protein 7.0 GM/DL 6.8 GM/DL Albumin 2.3 GM/DL 2.2 GM/DL Calcium Level 8.6 MG/DL 8.4 MG/DL Phosphorus Level 2.5 MG/DL 2.7 MG/DL Magnesium Level 2.1 MG/DL 1.8 MG/DL Alkaline Phosphatase 87 U/L 78 U/L Aspartate Amino Transf (AST/SGOT) 16 U/L 24 U/L Alanine Aminotransferase (ALT/SGPT) 33 U/L 35 U/L Total Bilirubin 0.5 MG/DL 0.6 MG/DL Sodium Level 140 MEQ/L 135 MEQ/L Potassium Level 3.2 MEQ/L 3.6 MEQ/L Chloride Level 107 MEQ/L 106 MEQ/L Carbon Dioxide Level 22.2 MEQ/L 18.4 MEQ/L Anion Gap 11 MEQ/L 11 MEQ/L Estimat Glomerular Filtration Rate 111 ML/MIN 107 ML/MIN Microbiology Date/Time Source Procedure Growth Status 11/17/17 13:04 Blood Peripheral Aerobic Blood Culture - Preliminary NO GROWTH IN 1 DAY Resulted 11/17/17 13:04 Blood Peripheral Anaerobic Blood Culture - Preliminary NO GROWTH IN 1 DAY Resulted 11/17/17 12:53 Blood Peripheral Aerobic Blood Culture - Preliminary NO GROWTH IN 1 DAY Resulted 11/17/17 12:53 Blood Peripheral Anaerobic Blood Culture - Final QNS - SEE AEROBE REPORT Resulted Imaging Last Impressions Chest X-Ray 11/18/17 0600 Signed Impressions: CONCLUSION: Stable single view the chest. Persistent perihilar vascular congestion with enl arged heart. Abdomen X-Ray 11/18/17 0600 Signed Impressions: CONCLUSION: The NG tube in good position. Bowel gas pattern is unremarkable Brain MRI 11/16/17 0000 Signed Impressions: CONCLUSION: 1. 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 No recent infarct. No mass effect or shift. No hydrocephalus. Mild to moderate chronic ischemic changes in the periventricular white matter also appear similar to prior CT. Physical Exam CONSTITUTIONAL/GENERAL: This is an adequately nourished patient, in no apparent distress. TUBES/LINES/DRAINS: CARDIOVASCULAR: Regular rate and rhythm without murmurs, gallops, or rubs. No JVD. Peripheral pulses symmetric. RESPIRATORY/CHEST: Symmetric, unlabored respirations. Clear to auscultation. Breath sounds equal bilaterally. No wheezes, rales, or rhonchi. GASTROINTESTINAL: Abdomen soft, non-tender, nondistended. No hepato-splenomegaly , or palpable masses. No guarding. Bowel sounds present. GENITOURINARY: Without palpable bladder distension. External catheter in place. MUSCULOSKELETAL: Extremities without clubbing, cyanosis, or edema. No joint tenderness or effusion noted. No calf tenderness. No mottling or clubbing. Wound R LE, dressin g in place NEUROLOGICAL: responsive purposeful PSYCHIATRIC: calm Assessment & Plan Remarks Pt with COPD presentes with Hypercapnic acute resp failure VDRF, tolerating CPAP B/l pulm infiltrates - PNA, - MRSA Chronic RLE wound, MRSA Coag neg staph bacteremia, / - doubt clinical significance depression. On zoloft. CAn't use zyvox complete vancomycin 10 days fu repeat sputum clx chk BNP fu P blood clx Angeles Nelson MD Nov 18, 2017 14:28
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
[2017-11-18] MEDS ORDERED: PHARMACY ORDERED LAB ONE (15:45)
[2017-11-18] MEDS: oxyCODONE/ACETAMINOPHEN 5 MG/325 MG TAB PO PRN ×2 (16:47→23:28)
--- NOTE | 2017-11-18 17:24 | HHI.FPPN ---
Subjective Remarks Vitals appear to be stable. No acute events overnight. Patient is undergoing respiratory trials for extubation. Was on CPAP when I was in the room. On tube feeds. Spoke with sister outside of the room. Sister insists patient remain undergoing aggressive treatment. Patient remains on Precedex drip. Objective Vitals Vital Signs Date Time Temp Pulse Resp B/P (MAP) Pulse Ox O2 Delivery O2 Flow Rate FiO2 11/18/17 16:00 35 11/18/17 16:00 99.1 79 30 142/75 (97) 98 11/18/17 16:00 79 11/18/17 14:00 72 11/18/17 12:07 100 35 11/18/17 12:00 35 11/18/17 12:00 77 11/18/17 12:00 98.8 77 24 122/57 (78) 98 11/18/17 10:00 77 11/18/17 09:05 35 11/18/17 09:02 100 35 11/18/17 09:02 35 11/18/17 09:02 100 Ventilator 35 11/18/17 08:00 77 11/18/17 08:00 77 11/18/17 08:00 35 11/18/17 08:00 97.5 77 18 131/60 (83) 100 11/18/17 06:00 77 11/18/17 04:00 35 11/18/17 04:00 71 11/18/17 04:00 99.1 69 18 141/75 (97) 99 11/18/17 03:44 100 35 11/18/17 02:00 79 11/18/17 00:00 71 11/18/17 00:00 98.5 70 15 124/70 (88) 100 11/18/17 00:00 35 11/17/17 23:31 99 35 18 22:00 67 18 20:10 100 35 11/17/17 20:10 35 11/17/17 20:00 35 11/17/17 20:00 99.7 66 13 105/57 (73) 100 18 20:00 66 18 18:00 92 I/O 11/17/1718/18 11/17/17 11/18/17 11/18/17 11/18/17 07:00 15:00 23:00 07:00 15:00 23:00 Intake Total 1228 ml 200 ml 870 ml 1900 ml 250 ml Output Total 1700 ml 1000 ml 3200 ml Balance -472 ml 200 ml -130 ml -1300 ml 250 ml IV Total 512 ml 200 ml 870 ml 1025 ml 250 ml Tube Feeding 656 ml 755 ml Other 60 ml 120 ml Output Urine Total 1700 ml 1000 ml 3200 ml # Bowel Movements 1 0 Result Diagram: 11/18/17 1140 11/18/17 0640 Objective Remarks CONSTITUTIONAL/GEN: Morbidly obese woman intubated. Opens eyes spontaneously. On soft restraints. LUNGS: Referred upper airway sounds, otherwise CTAB. CARDIOVASCULAR: Heart sounds distant due to body habitus. NRRR by telemetry. GI/ABD: obese and protuberant. SKIN: color normal, no rashes noted. HEME/LYMPH: no bruising, petechia. MUSC: Right lower extremity is bandaged w/gauze and shows deformity of the right toes, muscle atrophy and hyperpigmentation of the leg. Some hyperpigmentation seen at the ankle of the left foot. Stable from prior exams. A/P Assessment and Plan 66 y/o F w/hx of respiratory failure requiring intubation, COPD, CHF, and morbid obesity presenting with: Problem List: (1) Respiratory failure ICD Codes: J96.90 - Respiratory failure, unspecified, unspecified whether with hypoxia or hypercapnia Status: Acute Plan: Intubated (11/10-) Causes: ARSEN, obesity hypoventilation, poorly controlled COPD, possible HCAP CXR today unchanged, showing bilateral pulmonary opacities. Blood cx (11/09) +staph Haemolyticus Sputum cx (11/10) MRSA + Critical care consulted, appreciate assistance: Continue ventilator support with spontaneous breathing trials as tolerated ID consulted. Appreciate recs: Continue Vancomycin Day #5 (11/10 - present) Zosyn DC'd (11/10-11/12) F/u repeat cultures. Repeat sputum cx negative Pulm consulted, recs appreciated: con't current therapy, bronchodilator prn Palliative care consulted (multiple comorbidities and hospitalizations), appreciate assistance -Con't to follow Palliative recs -Primary team will contact sister sister (decision maker) to provide care summary, this was done today -Per note note 11/18: "Patient`s sister feels that she will not proceed with tracheostomy and PEG placement. Discussed briefly option of compassionately withdrawing patient from life support and also introduced hospice philosophy and benefits. Patient`s sister wants to give patient a chance to be medically extubated and wants goals to remain aggressive." -Per last note 11/14: Full code, goals of care remain aggressive -Per note on 11/13: "Patient attempting to communicate by mouthing words and appears to nod and shake her head appropriately to questions. Patient persistently pointing towards her endotracheal tube. Asked patient if she wanted to be suctioned and she shook her head for "no". Patient indicating with her hand to "pull out" ETT. Explained the purpose of endotracheal tube to patient. Explained ongoing CPAP trials and concerns regarding failing of CPAP trials as well as probable discussions of tracheostomy placement and PEG tube placement if patient is not able to be medically extubated. Patient vigorously shook her head and was mouthing "no". Asked patient if she would want a tracheostomy and a PEG placed if she is not able to be medically extubated, patient shook her head for "no". Asked patient if in the event that she is medically extubated and is in respiratory distress whether she would like to be reintubated and she shook her head for "no". Asked patient if she understood that without such interventions(intubation) being performed she will most likely and she nodded head for "yes". Notified patient that further discussions will be done with her sister Melissa, and she nodded head in acknowledgement." (2) CHF (congestive heart failure) ICD Codes: I50.9 - CHF (congestive heart failure) Status: Chronic Plan: STABLE Takes home Lasix, lisinopril, isosorbide dinitrate PO Con't Lasix 40 mg daily Anti-hypertensives held at this time due to low BP (3) Leg wound, right ICD Codes: S81.801A - Leg wound, right Status: Chronic Plan: STABLE Hx of MRSA positive infxn Hx of childhood injury, on disability Wound ostomy consulted, appreciate recs (4) Sacral decubitus ulcer, stage II ICD Codes: L89.152 - Pressure ulcer of sacral region, stage 2 Plan: STABLE Pressure ulcer prevention Wound ostomy nurse consulted for recs, appreciate assistance (5) COPD (chronic obstructive pulmonary disease) ICD Codes: J44.9 - COPD (chronic obstructive pulmonary disease) Status: Chronic Plan: Home: Duonebs TID, Symbicort 2 puffs BID Currently intubated DuoNeb Q4H (6) Sleep apnea ICD Codes: G47.30 - Sleep apnea, unspecified Status: Chronic Plan: Requires CPAP while asleep at home Currently intubated; will resume CPAP if/when extubated (7) Diabetes mellitus ICD Codes: E11.9 - Type 2 diabetes mellitus without complications Status: Chronic Plan: Home: Novolog SS and lantus 10 units, sitagliptin 100 mg daily Bedside glucose hovering around 300 Keep glucose <180 High dose SSI Continue 15 units lantus BID (8) Chronic leg pain ICD Codes: M79.606 - Pain in leg, unspecified; G89.29 - Other chronic pain Plan: Home med oxycodone 5 mg and Gabapentin held to prevent further drowsiness and respiratory compromise (9) Coronary artery disease ICD Codes: I25.10 - Atherosclerotic heart disease of [place] coronary artery without angina pectoris Status: Chronic Plan: Con't home plavix and atorvastatin Hold ASA (10) Anxiety ICD Codes: F41.9 - Anxiety disorder, unspecified Plan: Con't home Ativan TID PRN (11) Depression ICD Codes: F32.9 - Major depressive disorder, single episode, unspecified Status: Chronic Plan: con't home zoloft daily (12) Iron deficiency anemia ICD Codes: D50.9 - Iron deficiency anemia, unspecified Status: Chronic Plan: Con't ferrous sulfate Laxatives and stool softeners PRN (13) FEN Plan: Fluids: none for now, careful to avoid fluid overload Electrolytes: none Nutrition: Tube feeds @50 mls/hr, high protein DVT prophy: Heparin GI prophy: Pepcid Dispo: pending CPAP trials. Per palliative care discussion patient would not want tracheostomy. Likely will have extended hospital course with eventual discharge to SNF or will opt for hospice and likely pass away after extubation. Problem Qualifiers (1) Respiratory failure: Qualified Codes: J96.01 - Acute respiratory failure with hypoxia (2) CHF (congestive heart failure): Qualified Codes: I50.9 - Heart failure, unspecified (3) Leg wound, right: Qualified Codes: S81.801A - Unspecified open wound, right lower leg, initial encounter (4) COPD (chronic obstructive pulmonary disease): Qualified Codes: J44.9 - Chronic obstructive pulmonary disease, unspecified (5) Sleep apnea: Qualified Codes: G47.30 - Sleep apnea, unspecified (6) Diabetes mellitus: Qualified Codes: E11.8 - Type 2 diabetes mellitus with unspecified complications (7) Chronic leg pain: Qualified Codes: M79.604 - Pain in right leg; M79.605 - Pain in left leg; G89.29 - Other chronic pain (8) Coronary artery disease: (9) Depression: Qualified Codes: F32.9 - Major depressive disorder, single episode, unspecified Ksenia Brunner MD R1 Nov 18, 2017 17:24
[2017-11-18] MEDS: ATORVASTATIN 40 MG TAB PO SCH (20:02)
[2017-11-19] VITALS (16 sets, daily range): BP systolic 89–145; BP diastolic 55–81; PULSE 65–129; RESP 18–57; TEMP 96.8–99.6; O2SAT 88–100
[2017-11-19] MEDS: INSULIN ASPART SUPPLEMENTAL SCALE SQ SCH ×7 (01:05→23:40)
[2017-11-19] MEDS: HEPARIN SODIUM - SQ 10,000 UNITS/ML VIAL SQ SCH ×2 (01:05→12:01)
[2017-11-19] MEDS: RESP: ALBUTEROL 2.5 MG/IPRATROPIUM 0.5 MG NEB (SCH) NEB ×5 (03:31→19:57)
[2017-11-19] MEDS: DEXMEDETOMIDINE INJ 1,000 MCG in SODIUM CHLOR 0.9% 250 ML INJ 240 ML IV PRN ×2 (03:38→08:49)
--- NOTE | 2017-11-19 04:10 | RADRPT ---
EXAM DATE: 11/19/2017 3:51 AM EDT AGE/SEX: 66 years / Female INDICATIONS: Short of breath. CLINICAL DATA: This is the patient's subsequent encounter. Patient reports that signs and symptoms h ave been present for 2 weeks and indicates a pain score of 0/10. MEDICAL/SURGICAL HISTORY: Diabetes mellitus type II. Hypertension. Hysterectomy. sec tion. COMPARISON: [facility], CHEST SINGLE AP, 11/18/2017. . FINDINGS: The endotracheal tube, nasogastric tube are in good position. Mild perihilar vascular congestion. Sma ll left pleural effusion. CONCLUSION: Small pleural effusion. ET tube and NG tube are in good position Electronically signed by: Maverick Maria MD 11/19/2017 4:09 AM EDT
[2017-11-19 05:24] LABS: ALBUMIN 2.3 GM/DL (3.4-5.0); AST (GOT) 13 U/L (15-37); BICARBONATE 21.5 MEQ/L (21.0-32.0); BLOOD UREA NITROGEN 16 MG/DL (7-18); CALCIUM 8.4 MG/DL (8.5-10.1); CHLORIDE 103 MEQ/L (98-107); GLOMERULAR FILTRATION RATE 121 ML/MIN (>89); GLUCOSE,RANDOM 187 MG/DL (74-106); MAGNESIUM 1.8 MG/DL (1.5-2.5); SODIUM (NA) 136 MEQ/L (136-145)
[2017-11-19 05:26] LABS: ALT (GPT) 31 U/L (10-53); PHOSPHORUS 3.1 MG/DL (2.5-4.9)
[2017-11-19 05:28] LABS: ALKALINE PHOSPHATASE 78 U/L (45-117); TOTAL BILIRUBIN ADULT 0.7 MG/DL (0.2-1.0); TOTAL PROTEIN 6.8 GM/DL (6.4-8.2)
[2017-11-19 05:42] LABS: AUTOMATED NEUTROPHIL # 7.1 TH/MM3 (1.8-7.7); BASOPHIL # 0.1 TH/MM3 (0-0.2); BASOPHIL % 0.8 % (0.0-2.0); EOSINOPHIL # 0.2 TH/MM3 (0-0.4); EOSINOPHIL % 1.5 % (0.0-4.0); HEMOGLOBIN 10.6 GM/DL (11.6-15.3); LYMPH % 19.9 % (9.0-44.0); LYMPHOCYTE # 2.1 TH/MM3 (1.0-4.8); MEAN CELL VOLUME 72.4 FL (80.0-100.0); MEAN CORPUSCULAR HEMOGLOBIN 22.5 PG (27.0-34.0); MEAN CORPUSCULAR HGB CONC 31.1 % (32.0-36.0); MONO % 10.9 % (0.0-8.0); MONOCYTE # 1.2 TH/MM3 (0-0.9); NEUT % 66.9 % (16.0-70.0); PLATELET COUNT 337 TH/MM3 (150-450); RED BLOOD COUNT 4.69 MIL/MM3 (4.00-5.30); RED CELL DISTRIBUTION WIDTH 17.6 % (11.6-17.2); WHITE BLOOD COUNT 10.7 TH/MM3 (4.0-11.0)
[2017-11-19] MEDS: RESP: BUDESONIDE 0.5 MG/2 ML NEB NEB SCH ×2 (08:38→19:57)
[2017-11-19] MEDS: CHLORHEXIDINE 0.12% (ORAL KIT) 15 ML CUP MT SCH ×2 (08:47→20:00)
[2017-11-19] MEDS: SODIUM CHLORIDE 0.9% FLUSH 10 ML FLUSH IV FLUSH SCH ×2 (08:48→20:28)
[2017-11-19] MEDS: LORATADINE 10 MG TAB PO SCH (08:48)
[2017-11-19] MEDS: CLOPIDOGREL 75 MG TAB PO SCH (08:48)
[2017-11-19] MEDS: FAMOTIDINE 20 MG TAB PO SCH ×2 (08:48→20:21)
[2017-11-19] MEDS: INSULIN DETEMIR 100 UNITS/ML VIAL SQ SCH ×2 (08:48→20:28)
[2017-11-19] MEDS: FUROSEMIDE 40 MG TAB PO SCH (08:48)
[2017-11-19] MEDS: ASPIRIN 81 MG CHEW TAB PO SCH (08:48)
[2017-11-19] MEDS: FERROUS SULFATE 325 MG (65 MG ELEMENTAL IRON) TAB PO SCH ×2 (08:48→20:21)
[2017-11-19] MEDS: SERTRALINE HCL 100 MG TAB PO SCH (08:48)
[2017-11-19] MEDS: MUPIROCIN 2% OINT 1 APPLIC/GM SYR EACH NARE SCH ×2 (08:49→20:30)
[2017-11-19] MEDS: NYSTATIN 100,000 UNIT/GM CREAM 15 GM TOPICAL SCH ×2 (08:50→20:28)
[2017-11-19] MEDS: POLYETHYLENE GLYCOL 17 GM PKG PO SCH ×2 (08:56→20:21)
[2017-11-19] MEDS: DOCUSATE SODIUM 100 MG/10 ML UDC PO SCH ×2 (09:00→20:21)
[2017-11-19] MEDS: ARTIFICIAL TEAR OPTH EACH EYE SCH ×2 (09:00→20:29)
[2017-11-19] MEDS: SENNOSIDES SYRUP 8.8 MG/5 ML CUP PO SCH ×2 (09:00→20:21)
[2017-11-19] MEDS: LACTULOSE SYRUP 20 GM/30 ML CUP PO SCH (09:00)
--- NOTE | 2017-11-19 09:20 | HHI.CCPN ---
Subjective Remarks/Hospital Course 66-year-old morbidly obese female with history of COPD on 3 L nasal cannula home O2, obesity hypoventilation syndrome, CHF, CAD (on plavix) and sleep apnea admitted with shortness of breath and hypoxia. Per chart review the patient's sister states that recently, CPAP machine has not been working and that patient had been complaining about it. Last night, machine was malfunctioning again, and patient awakened in the middle of the night with SOB. She was found to be hypoxemic with saturation in 70s-80s. He was initially placed on BiPAP with no improvement and worsening hypercarbic respiratory acidosis. Patient was intubated for acute hypercapnic respiratory failure in the ICU. 11/10: The patient remains intubated and sedated. Endotracheal tube retracted several centimeters bilateral breath sounds equal. Patient continues on propofol and fentanyl for sedation. 11/11: Afebrile. No acute issues overnight. The patient's glucose level remains elevated. Moderate dose insulin sliding scale initiated. Discussion with the daughter, requesting definition of goals of care. Palliative care has been consult. CPAP trials were initiated, were unsuccessful today. Pulmonology has been consulted. 11/12: Afebrile. The patient was placed on high dose sliding scale last night, glucose levels remain elevated. Levimir 10u BID added to medication regimen. The patient has been placed on Precedex to facilitate ventilator weaning process and tolerated CPAP for approximately 3 hours last evening. 11/13: Afebrile. This a.m. the patient was noted to be hypotensive after CPAP trials and reinitiation of Precedex infusion. MAP was noted to be in the 50's. Patient is noted to having large bowel movements. The patient received bolus fluids of 1 L with resolution. The patient is awake nodding head to yes and no questions. 11/14: The patient continues on CPAP trials this afternoon. The patient continues on the Precedex infusion for ventilator synchrony currently at 0.6 continue to titrate upward. The patient is alert oriented attempting to talk. CPAP trials greater than 1 hour at this time. No further episodes of hypotension. 11/15: still on cpap. too somnolent and failing SBT trials. 11/16: T-max 100. Currently 99.4. Seizure yesterday. Currently on PSV trial at 35%. Follows commands. No bowel movement. Tube feeds at goal at 50 cc an hour 11/17: Afebrile. No bowel movement 3 days. Arousable on dexmedetomidine drip at 1.5 mg/kg/min. No new seizure activity. EEG and MRI brain reviewed. No acute findings. 11/18: No events overnight. Patient remains intubated, on Precedex infusion at 1.5, lethargic but very easily arousable. She is currently on pressure support 05/06, with respiratory rate in the mid 20s. She is negative almost 2 L over the last 24 hours. T-max of 99.7. 11/19: No events over the night. Patient tolerated SBT yesterday however tidal volumes in the mid 200s with respiratory rate consistently in the high 20s therefore extubation was held. This morning she is more awake, Precedex decreased to 1, on 14/10 with improved tidal volumes in the 4-500 range with respiratory rate less than 20. T-max of 99.1, I/O 3858/3400. Objective Vital Signs Date Time Temp Pulse Resp B/P (MAP) Pulse Ox O2 Delivery O2 Flow Rate FiO2 11/19/17 08:40 100 35 11/19/17 06:00 66 11/19/17 04:00 98.8 18 125/67 (86) 11/18/17 09:02 Ventilator Intake and Output 11/19/17 11/19/17 11/20/17 08:00 16:00 00:00 Intake Total 1549 ml Output Total 1800 ml Balance -251 ml Result Diagram: 11/19/17 0437 11/19/17 0437 Other Results Last Impressions Chest X-Ray 11/19/17 06 Signed Impressions: CONCLUSION: Small pleural effusion. ET tube and NG tube are in good position Abdomen X-Ray 11/18/17 06 Signed Impressions: CONCLUSION: The NG tube in good position. Bowel gas pattern is unremarkable Brain MRI 11/16/17 0000 Signed Impressions: CONCLUSION: 1. 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 No recent infarct. No mass effect or shift. No hydrocephalus. Mild to moderate chronic ischemic changes in the periventricular white matter also appear similar to prior CT. Imaging Last 24 hours Impressions Chest X-Ray 11/18/17 06 Signed Impressions: CONCLUSION: Stable single view the chest. Persistent perihilar vascular congestion with enl arged heart. Abdomen X-Ray 11/18/17599 Signed Impressions: CONCLUSION: The NG tube in good position. Bowel gas pattern is unremarkable Last Impressions Chest X-Ray 11/17/17 06 Signed Impressions: CONCLUSION: Small lung volumes and a prominent cardiac silhouette are unchanged. Brain MRI 11/16/17 0000 Signed Impressions: CONCLUSION: 1. 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 No recent infarct. No mass effect or shift. No hydrocephalus. Mild to moderate chronic ischemic changes in the periventricular white matter also appear similar to prior CT. Objective Remarks GENERAL: Elderly lady, obese, ill-appearing, intubated, sleeping but easily arousable. SKIN: Warm and dry. No cyanosis. HEAD: Normocephalic. EYES: Pupils are equal and reactive. Sclerae are anicteric. NECK: Neck is supple, no rigidity. Trachea is midline. No neck vein distention. Orally intubated. CARDIOVASCULAR: Regular heart sounds, distant, no murmurs appreciated. RESPIRATORY: Still has some scattered coarse breath sounds bilateral. Good air entry. No wheezes. GASTROINTESTINAL: Abdomen soft, non-tender, obese. Bowel sounds are normal. MUSCULOSKELETAL: No cyanosis, or edema. Right lower extremity below the knee with significant atrophy with dressing on wound C/D/I. NEURO EXAM: Opens eyes to voice stimuli, follows some commands, wiggles toes, shows thumbs up, left stronger than right. A/P Problem List: (1) HCAP (healthcare-associated pneumonia) ICD Code: J18.9 - Pneumonia, unspecified organism Assessment and Plan Neuro/Psych: Depression disorder NOS Chronic benzodiazepine use Chronic opioid use Peripheral neuropathy Anxiety Seizure disorder NOS Currently on dexmedetomidine drip at 1 mcg/kg/min to maintain sedation/analgesia Goal of RASS 0 Sertraline 100 mg daily/home medication resumed for depression Lorazepam 0.5 mg every 8 hours/medication anxiety Seizure precautions EEG 11/16 - sleep state. Rare tiny sharp transient. Brief episodes of very minimal encephalopathy. No active seizures. Clinical correlation. MRI brain 11/16 -remote small infarct in the right parietal lobe similar in size to a prior CT from September 2016. No recent infarct. No mass effect or shift. No hydrocephalus. Mild to moderate chronic ischemic changes in the periventricular white matter also appear similar to prior CT Respiratory: Acute on chronic respiratory failure -slowly improving History of HCAP 08/27/17 Healthcare associated pneumonia - MRSA COPD OHS/ ARSEN Currently on PSV trial 14/10 at 35%, doing well so far with respiratory rate less than 20 and tidal volumes ranging between 3-600 Check ABG in 1 hour and if okay will attempt extubation to BiPAP Ventilator bundle and bronchodilators Budesonide/ Formoterol Fumarate 160/4.52 puffs twice daily on hold while intubated Pulmonology following Cardiovascular: Chronic diastolic heart failure History of dyslipidemia History of right iliac artery stent placement Essential hypertension CAD Continue furosemide 40 mg/day and monitor urine output Continue home dosing clopidogrel 75 mg daily 81 mg daily aspirin and atorvastatin 40 mg daily for dyslipidemia Antihypertensives currently on hold at this time, resume when clinically indicated These include isosorbide mononitrate 30 mg daily and lisinopril 5 mg by mouth daily Renal: CYNTHIA -resolved -- Strict I/Os. Maintain Wise catheter FEN/GI: Mild protein calorie malnutrition with hypoalbuminemia Diarrhea resolved now with constipation Hypokalemia -resolved Replete electrolytes per protocol Tube feeds Vital Hi Protein @ 50cc/hr/per nutrition recommendations Famotidine 20 mg daily for GI prophylaxis Docusate sodium 100 mg twice daily/senna 820 mg twice daily for bowel regimen Heme/ID: Microcytic anemia Bacteremia gram-positive likely contaminant HCAP [id number] 11/09-blood culture staph hemolyticus 11/10 sputum culture-MRSA repeat 11/14 pending Continue Vanco, followed by ID Repeat cultures are currently pending Endocrine: Diabetes mellitus Sliding scale insulin per ICU protocol. Increased to high dose sliding scale Novolog every 4 hours with insulin detemir 15 units subcu twice daily MSK: Elevated BMI 54.3 PT evaluate and treat range of motion Prophylaxis: GI Prophylaxis Famotidine BID DVT Prophylaxis -- SCDs and Heparin 5000 SQ BID Lines: Peripheral IVs 2. Central line if indicated No family present at bedside. Level 2 follow-up Jonathan Centeno MD Nov 19, 2017 09:20
--- NOTE | 2017-11-19 09:38 | HHI.IDPN ---
Subjective Subjective Remarks ID COVERAGE 66-year-old morbidly obese female with history of COPD on 3 L nasal cannula home O2, obesity hypoventilation syndrome, CHF, CAD (on plavix) and sleep apnea admitted 3 days ago with shortness of breath and hypoxia. Patient was intubated for acute hypercapnic respiratory failure in the ICU. Patient remains intubated and sedated. Pt is afebrile. Mild leukocytosis on presentation CXR with b/l infiltrates Growing coag neg staph in 1/ blood clx Sputum C/S growing MRSA Notes reviewed Temps ok Tolerating CPAP On precedex Opens eyes, responding BP ok WBC normal Repeat BC negative last sputum with normal neena Antibiotics Vancomycin IV Current Medications Medications (Trade) Dose Ordered Sig/Giovanna Route Start Time Stop Time Status Last Admin (NS Flush) 2 ml BID IV FLUSH 11/09/17 21:00 11/19/17 08:48 (NS Flush) 2 ml UNSCH PRN IV FLUSH 11/09/17 12:15 (Symbicort 160-4.5 Mcg Inh) 2 puff Q12HR INH 11/09/17 21:00 Future Hold 11/16/17 07:49 (Heparin Inj) 5,000 units Q12H SQ 11/09/17 13:00 11/19/17 01:05 (Lipitor) 40 mg HS PO 11/09/17 21:00 11/18/17 20:02 (Plavix) 75 mg DAILY PO 11/10/17 09:00 11/19/17 08:48 (Lasix) 40 mg DAILY PO 11/10/17 09:00 11/19/17 08:48 (Neurontin) 300 mg BID PO 11/09/17 21:00 Future Hold (Claritin) 10 mg DAILY PO 11/10/17 09:00 11/19/17 08:48 (Ativan) 0.5 mg Q8H PRN PO 11/09/17 13:00 11/16/17 15:52 (Mycostatin Cream) 1 applic BID TOPICAL 11/09/17 21:00 11/19/17 08:50 (Zoloft) 100 mg DAILY PO 11/10/17 09:00 11/19/17 08:48 Non-Formulary Medication 1 drop BID EACH EYE 11/09/17 21:00 11/18/17 20:01 (Zofran Odt) 4 mg Q6HR PRN PO 11/09/17 13:00 (Tylenol) 650 mg Q6H PRN PO 11/09/17 13:00 11/11/17 08:08 (Ferrous Sulfate) 325 mg BID PO 11/09/17 21:00 11/19/17 08:48 ([facility] Nursing Information) Patient in critical care unit? Ass... Q361D .XX 11/09/17 20:45 (Peridex 0.12% Liq) 15 ml BID@08,20 MT 11/10/17 08:00 11/19/17 08:47 (Aspirin Chew) 81 mg DAILY PO 11/11/17 09:00 11/19/17 08:48 Dexmedetomidine HCl 1000 mcg/ Sodium Chloride 250 ml @ 6.63 mls/hr TITRATE PRN IV 11/11/17 19:45 11/19/17 08:49 (Madeline-Colace) 1 tab BID PO 11/12/17 09:00 Future Hold 11/13/17 07:58 (Milk Of Magnesia Liq) 30 ml Q12H PRN PO 11/12/17 09:00 (Senokot) 17.2 mg Q12H PRN PO 11/12/17 09:00 (Dulcolax Supp) 10 mg DAILY PRN RECTAL 11/12/17 09:00 (Lactulose Liq) 30 ml DAILY PRN PO 11/12/17 09:00 (D50w (Vial) Inj) 50 ml UNSCH PRN IV PUSH 11/12/17 09:15 (Glucagon Inj) 1 mg UNSCH PRN OTHER 11/12/17 09:15 (Levemir Inj) 15 units Q12HR SQ 11/13/17 09:00 11/19/17 08:48 (Pepcid) 20 mg BID PO 11/14/17 21:00 11/19/17 08:48 (Xanax) 0.5 mg Q6H PRN PO 11/14/17 17:15 11/18/17 22:15 (Ativan Inj) 2 mg Q15M PRN IV PUSH 11/15/17 19:00 11/16/17 15:52 (Lopressor Inj) 5 mg Q5M PRN IV PUSH 11/15/17 19:00 (Duoneb Neb) 1 ampule Q4HR NEB NEB 11/16/17 16:00 11/19/17 08:39 (Bactroban Nasal 2% Oint) 1 applic Taper BID EACH NARE 11/16/17 21:00 11/12/18 20:59 11/19/17 08:49 (Albuterol Neb) 2.5 mg Q2HR NEB PRN NEB 11/16/17 12:15 (Pulmicort Respule Neb) 0.5 mg Q12HR NEB NEB 11/16/17 20:00 11/19/17 08:38 (Colace Liq) 100 mg Q12HR PO 11/16/17 21:00 11/18/17 09:35 (Senna Liq) 8.8 mg BID PO 11/16/17 21:00 11/18/17 09:00 (NovoLOG SUPPLEMENTAL SCALE) 1 Q4HR SQ 11/16/17 16:00 11/19/17 03:45 (Miralax) 17 gm BID PO 11/17/17 09:00 11/19/17 08:56 (Lactulose Liq) 30 ml DAILY PO 11/17/17 09:00 11/18/17 09:35 Vancomycin HCl 2000 mg/Sodium Chloride 520 ml @ 260 mls/hr Q18H IV 11/17/17 12:00 11/19/17 23:55 11/19/17 00:00 ([facility] Pharmacy Ordered Lab Info) SPECIFIC LAB TO BE DEBORAH... ONCE ONCE .XX 11/19/17 17:45 11/19/17 17:46 (Percocet 5-325 Mg) 1 tab Q6H PRN PO 11/18/17 16:15 11/18/17 23:28 Past Medical History Reviewed Allergies: Coded Allergies: *MDRO Multi-Drug Resistant Organism (Verified Adverse Reaction, Unknown, MRSA, 11/09/17) MRSA PCR positive - 06/28/2015 & 06/03/16 Objective . Vital Signs Date Time Temp Pulse Resp B/P (MAP) Pulse Ox O2 Delivery O2 Flow Rate FiO2 11/19/17 08:40 100 35 11/19/17 06:00 66 11/19/17 04:00 65 11/19/17 04:00 35 11/19/17 04:00 98.8 65 18 125/67 (86) 100 11/19/17 03:31 100 35 11/19/17 02:00 67 11/19/17 00:28 25 11/19/17 00:00 80 11/19/17 00:00 35 11/19/17 00:00 99.0 80 57 145/67 (93) 100 11/18/17 22:39 100 35 11/18/17 22:00 82 11/18/17 20:00 98.8 75 31 134/78 (96) 100 11/18/17 20:00 75 11/18/17 20:00 35 11/18/17 19:40 100 35 11/18/17 18:00 73 11/18/17 17:24 100 35 11/18/17 16:00 35 11/18/17 16:00 99.1 79 30 142/75 (97) 98 11/18/17 16:00 79 11/18/17 14:00 72 11/18/17 12:07 100 35 11/18/17 12:00 35 11/18/17 12:00 77 11/18/17 12:00 98.8 77 24 122/57 (78) 98 11/18/17 10:00 77 . Laboratory Tests Test 11/18/17 11:40 11/19/17 04:37 White Blood Count 11.0 TH/MM3 10.7 TH/MM3 Red Blood Count 4.76 MIL/MM3 4.69 MIL/MM3 Hemoglobin 10.4 GM/DL 10.6 GM/DL Hematocrit 34.9 % 34.0 % Mean Corpuscular Volume 73.2 FL 72.4 FL Mean Corpuscular Hemoglobin 21.7 PG 22.5 PG Mean Corpuscular Hemoglobin Concent 29.7 % 31.1 % Red Cell Distribution Width 17.8 % 17.6 % Platelet Count 321 TH/MM3 337 TH/MM3 Mean Platelet Volume 8.8 FL 9.0 FL Neutrophils (%) (Auto) 70.4 % 66.9 % Lymphocytes (%) (Auto) 16.0 % 19.9 % Monocytes (%) (Auto) 12.2 % 10.9 % Eosinophils (%) (Auto) 0.9 % 1.5 % Basophils (%) (Auto) 0.5 % 0.8 % Neutrophils # (Auto) 7.8 TH/MM3 7.1 TH/MM3 Lymphocytes # (Auto) 1.8 TH/MM3 2.1 TH/MM3 Monocytes # (Auto) 1.3 TH/MM3 1.2 TH/MM3 Eosinophils # (Auto) 0.1 TH/MM3 0.2 TH/MM3 Basophils # (Auto) 0.1 TH/MM3 0.1 TH/MM3 CBC Comment DIFF FINAL DIFF FINAL Differential Comment Laboratory Tests Test 11/18/17 06:40 11/18/17 11:40 11/19/17 04:37 Blood Urea Nitrogen 16 MG/DL 16 MG/DL Creatinine 0.67 MG/DL 0.60 MG/DL Random Glucose 125 MG/DL 187 MG/DL Total Protein 6.8 GM/DL 6.8 GM/DL Albumin 2.2 GM/DL 2.3 GM/DL Calcium Level 8.4 MG/DL 8.4 MG/DL Phosphorus Level 2.7 MG/DL 3.1 MG/DL Magnesium Level 1.8 MG/DL 1.8 MG/DL Alkaline Phosphatase 78 U/L 78 U/L Aspartate Amino Transf (AST/SGOT) 24 U/L 13 U/L Alanine Aminotransferase (ALT/SGPT) 35 U/L 31 U/L Total Bilirubin 0.6 MG/DL 0.7 MG/DL Sodium Level 135 MEQ/L 136 MEQ/L Potassium Level 3.6 MEQ/L 3.6 MEQ/L Chloride Level 106 MEQ/L 103 MEQ/L Carbon Dioxide Level 18.4 MEQ/L 21.5 MEQ/L Anion Gap 11 MEQ/L 12 MEQ/L Estimat Glomerular Filtration Rate 107 ML/MIN 121 ML/MIN B-Type Natriuretic Peptide 171 PG/ML Microbiology Date/Time Source Procedure Growth Status 11/17/17 13:04 Blood Peripheral Aerobic Blood Culture - Preliminary NO GROWTH IN 1 DAY Resulted 11/17/17 13:04 Blood Peripheral Anaerobic Blood Culture - Preliminary NO GROWTH IN 1 DAY Resulted 11/17/17 12:53 Blood Peripheral Aerobic Blood Culture - Preliminary NO GROWTH IN 1 DAY Resulted 11/17/17 12:53 Blood Peripheral Anaerobic Blood Culture - Final QNS - SEE AEROBE REPORT Resulted Imaging Last Impressions Chest X-Ray 11/18/17 06 Signed Impressions: CONCLUSION: Stable single view the chest. Persistent perihilar vascular congestion with enl arged heart. Abdomen X-Ray 11/18/17 06 Signed Impressions: CONCLUSION: The NG tube in good position. Bowel gas pattern is unremarkable Brain MRI 11/16/17 0000 Signed Impressions: CONCLUSION: 1. 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 No recent infarct. No mass effect or shift. No hydrocephalus. Mild to moderate chronic ischemic changes in the periventricular white matter also appear similar to prior CT. Physical Exam CONSTITUTIONAL/GENERAL: Obese female, opens eyes, following, looks comfortable on CPAP SKIN: No rash HEENT: NO petechia, intubated NECK: Supple CARDIOVASCULAR: Regular rate and rhythm without murmurs, gallops, or rubs. RESPIRATORY/CHEST: Symmetric, unlabored respirations. Coarse BS juve, decreased at bases GASTROINTESTINAL: Abdomen soft, non-tender, nondistended. No hepato-splenomegaly , or palpable masses. No guarding. Bowel sounds present. GENITOURINARY: Without palpable bladder distension. External catheter in place. MUSCULOSKELETAL: Extremities without clubbing, cyanosis, or edema. No mottling or clubbing. Wound R LE, dressing in place NEUROLOGICAL: responsive purposeful PSYCHIATRIC: calm LINE: NO evidence of infection Assessment & Plan Remarks COPD presented with Hypercapnic acute resp failure Respiratory failure, tolerating CPAP MRSA PNA Chronic RLE wound, MRSA Coag neg staph bacteremia, 06/05 - doubt clinical significance Depression. On zoloft. CAn't use zyvox RECOMMENDATION Complete vancomycin 10 days Follow temps Monitor progress Weaning per CCM Other ID covering 11/20-11/23 Lorena Carvajal MD Nov 19, 2017 09:38
--- NOTE | 2017-11-19 10:40 | HHI.FPPN ---
Subjective Remarks Vitals stable, no acute events overnight. Was unable to be tolerated overnight due to low tidal volumes and elevated respiratory rate. Patient has been on Precedex drip. Has still been undergoing CPAP trials. Spoke with critical care today, plan for attempt at extubation today with transition to BiPAP. (Ksenia Brunner MD R1) Objective Vitals Vital Signs Date Time Temp Pulse Resp B/P (MAP) Pulse Ox O2 Delivery O2 Flow Rate FiO2 11/19/17 10:00 72 11/19/17 08:45 35 11/19/17 08:40 100 35 11/19/17 08:00 35 11/19/17 08:00 65 11/19/17 08:00 96.8 65 18 134/72 (92) 100 11/19/17 06:00 66 11/19/17 04:00 65 11/19/17 04:00 35 11/19/17 04:00 98.8 65 18 125/67 (86) 100 11/19/17 03:31 100 35 11/19/17 02:00 67 11/19/17 00:28 25 11/19/17 00:00 80 11/19/17 00:00 35 11/19/17 00:00 99.0 80 57 145/67 (93) 100 11/18/17 22:39 100 35 11/18/17 22:00 82 11/18/17 20:00 98.8 75 31 134/78 (96) 100 11/18/17 20:00 75 11/18/17 20:00 35 11/18/17 19:40 100 35 11/18/17 18:00 73 11/18/17 17:24 100 35 11/18/17 16:00 35 11/18/17 16:00 99.1 79 30 142/75 (97) 98 11/18/17 16:00 79 11/18/17 14:00 72 11/18/17 12:07 100 35 11/18/17 12:00 35 11/18/17 12:00 77 11/18/17 12:00 98.8 77 24 122/57 (78) 98 I/O 11/18/17 618 6//18 11/19/17 11/19/17 11/19/17 07:00 15:00 23:00 07:00 15:00 23:00 Intake Total 1900 ml 1534 ml 1549 ml Output Total 3200 ml 1600 ml 1800 ml Balance -1300 ml -66 ml -251 ml IV Total 1025 ml 750 ml 770 ml Tube Feeding 755 ml 664 ml 679 ml Tube Irrigant 120 ml Other 120 ml 100 ml Output Urine Total 3200 ml 1600 ml 1800 ml # Bowel Movements 0 1 0 (Ksenia Brunner MD R1) Result Diagram: 11/19/1743611/19/17436 Objective Remarks CONSTITUTIONAL/GEN: Morbidly obese woman intubated. Opens eyes spontaneously. On soft restraints. LUNGS: Referred upper airway sounds, otherwise CTAB. CARDIOVASCULAR: Heart sounds distant due to body habitus. NRRR by telemetry. GI/ABD: obese and protuberant. SKIN: color normal, no rashes noted. HEME/LYMPH: no bruising, petechia. MUSC: Right lower extremity is bandaged w/gauze and shows deformity of the right toes, muscle atrophy and hyperpigmentation of the leg. Some hyperpigmentation seen at the ankle of the left foot. Stable from prior exams. (Ksenia Brunner MD R1) A/P Assessment and Plan 66 y/o F w/hx of respiratory failure requiring intubation, COPD, CHF, and morbid obesity presenting with: (Ksenia Brunner MD R1) Attending Attestation Patient seen and examined. Case reviewed and discussed with the resident team. Agree with plan of care as discussed with me and documented in the resident note. (Brandi Bush MD) Problem List: (1) Respiratory failure ICD Codes: J96.90 - Respiratory failure, unspecified, unspecified whether with hypoxia or hypercapnia Status: Acute Plan: Intubated (11/10-) At this time, difficulty in extubation likely secondary to obesity hypoventilation syndrome and concordance with advanced age and multiple comorbidities CXR stable Blood cx (11/09) +staph Haemolyticus Sputum cx (11/10) MRSA + Repeat sputum culture 11/14 negative Repeat blood culture 11/17 no growth in 1 day Critical care consulted, appreciate assistance: Continue ventilator support with spontaneous breathing trials as tolerated ID consulted. Appreciate recs: Continue Vancomycin Day #6 (11/10 - present). Plan to complete a 10 day course. Sada STONE'd (11/10-11/12) Pulm consulted, recs appreciated: con't current therapy, bronchodilator prn Palliative care consulted (multiple comorbidities and hospitalizations), appreciate assistance -Con't to follow Palliative recs -Primary team will contact sister sister (decision maker) to provide care summary, this was done today -Per note note 11/18: "Patient`s sister feels that she will not proceed with tracheostomy and PEG placement. Discussed briefly option of compassionately withdrawing patient from life support and also introduced hospice philosophy and benefits. Patient`s sister wants to give patient a chance to be medically extubated and wants goals to remain aggressive." -Per last note 11/14: Full code, goals of care remain aggressive -Per note on 11/13: "Patient attempting to communicate by mouthing words and appears to nod and shake her head appropriately to questions. Patient persistently pointing towards her endotracheal tube. Asked patient if she wanted to be suctioned and she shook her head for "no". Patient indicating with her hand to "pull out" ETT. Explained the purpose of endotracheal tube to patient. Explained ongoing CPAP trials and concerns regarding failing of CPAP trials as well as probable discussions of tracheostomy placement and PEG tube placement if patient is not able to be medically extubated. Patient vigorously shook her head and was mouthing "no". Asked patient if she would want a tracheostomy and a PEG placed if she is not able to be medically extubated, patient shook her head for "no". Asked patient if in the event that she is medically extubated and is in respiratory distress whether she would like to be reintubated and she shook her head for "no". Asked patient if she understood that without such interventions(intubation) being performed she will most likely and she nodded head for "yes". Notified patient that further discussions will be done with her sister Melissa, and she nodded head in acknowledgement." (2) CHF (congestive heart failure) ICD Codes: I50.9 - CHF (congestive heart failure) Status: Chronic Plan: STABLE Takes home Lasix, lisinopril, isosorbide dinitrate PO Con't Lasix 40 mg daily Anti-hypertensives held at this time due to low BP (3) Leg wound, right ICD Codes: S81.801A - Leg wound, right Status: Chronic Plan: STABLE Hx of MRSA positive infxn Hx of childhood injury, on disability Wound ostomy consulted, appreciate recs (4) COPD (chronic obstructive pulmonary disease) ICD Codes: J44.9 - COPD (chronic obstructive pulmonary disease) Status: Chronic Plan: Home: Duonebs TID, Symbicort 2 puffs BID Currently intubated DuoNeb Q4H (5) Sleep apnea ICD Codes: G47.30 - Sleep apnea, unspecified Status: Chronic Plan: Requires CPAP while asleep at home Currently intubated; will resume CPAP if/when extubated (6) Diabetes mellitus ICD Codes: E11.9 - Type 2 diabetes mellitus without complications Status: Chronic Plan: Home: Novolog SS and lantus 10 units, sitagliptin 100 mg daily Bedside glucose hovering around 300 Keep glucose <180 High dose SSI Continue 15 units lantus BID (7) Sacral decubitus ulcer, stage II ICD Codes: L89.152 - Pressure ulcer of sacral region, stage 2 Plan: STABLE Pressure ulcer prevention Wound ostomy nurse consulted for recs, appreciate assistance (8) Chronic leg pain ICD Codes: M79.606 - Pain in leg, unspecified; G89.29 - Other chronic pain Plan: Home med oxycodone 5 mg and Gabapentin held to prevent further drowsiness and respiratory compromise (9) Coronary artery disease ICD Codes: I25.10 - Atherosclerotic heart disease of [place] coronary artery without angina pectoris Status: Chronic Plan: Con't home plavix and atorvastatin Hold ASA (10) Anxiety ICD Codes: F41.9 - Anxiety disorder, unspecified Plan: Con't home Ativan TID PRN (11) Depression ICD Codes: F32.9 - Major depressive disorder, single episode, unspecified Status: Chronic Plan: con't home zoloft daily (12) Iron deficiency anemia ICD Codes: D50.9 - Iron deficiency anemia, unspecified Status: Chronic Plan: Con't ferrous sulfate Laxatives and stool softeners PRN (13) FEN Plan: Fluids: none for now, careful to avoid fluid overload Electrolytes: none Nutrition: Tube feeds @50 mls/hr, high protein DVT prophy: Heparin GI prophy: Pepcid (Ksenia Brunner MD R1) Problem Qualifiers (1) Respiratory failure: Qualified Codes: J96.01 - Acute respiratory failure with hypoxia (2) CHF (congestive heart failure): Qualified Codes: I50.9 - Heart failure, unspecified (3) Leg wound, right: Qualified Codes: S81.801A - Unspecified open wound, right lower leg, initial encounter (4) COPD (chronic obstructive pulmonary disease): Qualified Codes: J44.9 - Chronic obstructive pulmonary disease, unspecified (5) Sleep apnea: Qualified Codes: G47.30 - Sleep apnea, unspecified (6) Diabetes mellitus: Qualified Codes: E11.8 - Type 2 diabetes mellitus with unspecified complications (7) Chronic leg pain: Qualified Codes: M79.604 - Pain in right leg; M79.605 - Pain in left leg; G89.29 - Other chronic pain (8) Coronary artery disease: (9) Depression: Qualified Codes: F32.9 - Major depressive disorder, single episode, unspecified Ksenia Brunner MD R1 Nov 19, 2017 10:40 Brandi Bush MD Nov 19, 2017 11:19
--- NOTE | 2017-11-19 17:25 | HHI.PR ---
Subjective Remarks ALERT OFF VENT SUPPORT NO SOB Objective Vital Signs Date Time Temp Pulse Resp B/P (MAP) Pulse Ox O2 Delivery O2 Flow Rate FiO2 11/19/17 16:00 95 11/19/17 16:00 98.1 95 27 104/55 (71) 99 11/19/17 15:12 99 35 11/19/17 14:00 87 11/19/17 12:20 95 BiPAP/CPAP 35 11/19/17 12:00 74 11/19/17 12:00 35 11/19/17 12:00 97.5 74 25 137/81 (99) 100 11/19/17 10:00 72 11/19/17 08:45 35 11/19/17 08:40 100 35 11/19/17 08:00 35 11/19/17 08:00 65 11/19/17 08:00 96.8 65 18 134/72 (92) 100 11/19/17 06:00 66 11/19/17 04:00 65 11/19/17 04:00 35 11/19/17 04:00 98.8 65 18 125/67 (86) 100 11/19/17 03:31 100 35 11/19/17 02:00 67 11/19/17 00:28 25 11/19/17 00:00 80 11/19/17 00:00 35 11/19/17 00:00 99.0 80 57 145/67 (93) 100 11/18/17 22:39 100 35 11/18/17 22:00 82 11/18/17 20:00 98.8 75 31 134/78 (96) 100 11/18/17 20:00 75 11/18/17 20:00 35 11/18/17 19:40 100 35 11/18/17 18:00 73 11/18/17 17:24 100 35 I/O 11/18/1711/18/18 11/18/18 11/19/17 11/19/17 11/19/17 06:59 14:59 22:59 06:59 14:59 22:59 Intake Total 1125 ml 775 ml 1534 ml 1549 ml Output Total 3200 ml 1600 ml 1800 ml Balance -2075 ml 775 ml -66 ml -251 ml IV Total 250 ml 775 ml 750 ml 770 ml Tube Feeding 755 ml 664 ml 679 ml Tube Irrigant 120 ml Other 120 ml 100 ml Output Urine Total 3200 ml 1600 ml 1800 ml # Bowel Movements 0 1 0 Result Diagram: 11/19/1743611/19/17436 Objective Remarks GENERAL: SKIN: Warm and dry. HEAD: Atraumatic. Normocephalic. EYES: Pupils equal and round. No scleral icterus. No injection or drainage. ENT: No nasal bleeding or discharge. Mucous membranes pink and moist. NECK: Trachea midline. No JVD. CARDIOVASCULAR: Regular rate and rhythm. RESPIRATORY: No accessory muscle use. Clear to auscultation. Breath sounds equal bilaterally. GASTROINTESTINAL: Abdomen soft, non-tender, nondistended. Hepatic and splenic margins not palpable. MUSCULOSKELETAL: Extremities without clubbing, cyanosis, or edema. No obvious deformities. NEUROLOGICAL: Awake and alert. No obvious cranial nerve deficits. Motor grossly within normal limits. Five out of 5 muscle strength in the arms and legs. Normal speech. PSYCHIATRIC: Appropriate mood and affect; insight and judgment normal. Assessment and Plan Assessment and Plan IMPRESION RESP FAILURE COPD ARSEN/CSA CHF MORBID OBESITY PLAN O2/PAP NEEDED BRONCHODILATOR THERAPY INCREASE ACTIVITY Viktoria Blum MD Nov 19, 2017 17:25
[2017-11-19] MEDS: VANCOMYCIN INJ 2,000 MG in SODIUM CHLORID 0.9% 500 ML INJ 500 ML IV SCH ×3 (17:36)
[2017-11-19] MEDS ORDERED: PHARMACY ORDERED LAB ONE (17:45)
--- NOTE | 2017-11-19 18:27 | HHI.PR ---
Addendum to Inpatient Note Addendum Reason: Additional Documentation Additional Information Spoke with patient regarding clarification of code status. Patient is awake and alert and able to understand her medical condition. Patient expresses that she does not want to be intubated again even if such treatment would save her life. She is okay with chest compressions, electric shock, and ACLS drugs if a code blue were to occur. Reiterated to patient that her code status would be no intubation but would include shock, compressions, and medications. Patient confirmed. Advised patient that she may change her mind about code status at any time, just needs to let one of her care providers (RN or MD) know. Code status updated in EMR. Will contact patient's sister to inform her of this change. Update 2040: Spoke to patient's sister and health care surrogate Melissa Richard. Informed her of the above discussion with the patient and the change in code status. Sister had spoken to patient about this issue previously and the patient had said the same thing to her. Melissa expressed support for her sister' s decision and understood sister's desire to change that piece of code status. Eddie Partida MD R2 Nov 19, 2017 18:27
[2017-11-19] MEDS: ATORVASTATIN 40 MG TAB PO SCH (20:21)
[2017-11-19] MEDS ORDERED: ALBUMIN 5% INJ 500 ML IV ONE (22:15)
[2017-11-19] MEDS ORDERED: PHENYLEPHRINE INJ 160 MG in DEXTROSE 5% IN WATE 500 ML INJ 484 ML IV PRN ×2 (22:15)
[2017-11-19] MEDS ORDERED: LACTATED RINGER'S 1000 ML INJ 1,000 ML IV ONE (22:15)
[2017-11-19] MEDS ORDERED: TERBUTALINE INJ 1 MG/ML AMP SQ PRN (22:15)
[2017-11-20] VITALS (16 sets, daily range): BP systolic 84–128; BP diastolic 55–76; PULSE 116–139; RESP 31–90; TEMP 98.9–101.1; O2SAT 76–97
[2017-11-20] MEDS: RESP: ALBUTEROL 2.5 MG/IPRATROPIUM 0.5 MG NEB (SCH) NEB ×5 (00:31→16:21)
[2017-11-20] MEDS: HEPARIN SODIUM - SQ 10,000 UNITS/ML VIAL SQ SCH (00:47)
[2017-11-20] MEDS: INSULIN ASPART SUPPLEMENTAL SCALE SQ SCH ×4 (04:00→16:00)
[2017-11-20 04:37] LABS: AUTOMATED NEUTROPHIL # 9.4 TH/MM3 (1.8-7.7); BASOPHIL % 0.3 % (0.0-2.0); EOSINOPHIL # 0.1 TH/MM3 (0-0.4); EOSINOPHIL % 0.5 % (0.0-4.0); HEMATOCRIT 35.5 % (35.0-46.0); HEMOGLOBIN 10.4 GM/DL (11.6-15.3); LYMPH % 13.6 % (9.0-44.0); LYMPHOCYTE # 1.7 TH/MM3 (1.0-4.8); MEAN CELL VOLUME 74.5 FL (80.0-100.0); MEAN CORPUSCULAR HEMOGLOBIN 21.9 PG (27.0-34.0); MEAN PLATELET VOLUME 8.9 FL (7.0-11.0); MONO % 8.6 % (0.0-8.0); PLATELET COUNT 404 TH/MM3 (150-450); RED BLOOD COUNT 4.77 MIL/MM3 (4.00-5.30); RED CELL DISTRIBUTION WIDTH 17.8 % (11.6-17.2); WHITE BLOOD COUNT 12.2 TH/MM3 (4.0-11.0)
[2017-11-20 04:43] LABS: MEAN CORPUSCULAR HGB CONC 29.4 % (32.0-36.0)
[2017-11-20 05:11] LABS: ALKALINE PHOSPHATASE 77 U/L (45-117); ALT (GPT) 22 U/L (10-53); AST (GOT) 10 U/L (15-37); BICARBONATE 23.2 MEQ/L (21.0-32.0); BLOOD UREA NITROGEN 16 MG/DL (7-18); CALCIUM 8.6 MG/DL (8.5-10.1); CHLORIDE 104 MEQ/L (98-107); CREATININE 0.77 MG/DL (0.50-1.00); GLOMERULAR FILTRATION RATE 91 ML/MIN (>89); GLUCOSE,RANDOM 150 MG/DL (74-106); MAGNESIUM 1.8 MG/DL (1.5-2.5); PHOSPHORUS 3.9 MG/DL (2.5-4.9); SODIUM (NA) 139 MEQ/L (136-145); TOTAL PROTEIN 7.2 GM/DL (6.4-8.2)
[2017-11-20] MEDS: CHLORHEXIDINE 0.12% (ORAL KIT) 15 ML CUP MT SCH (08:00)
[2017-11-20] MEDS: RESP: BUDESONIDE 0.5 MG/2 ML NEB NEB SCH (08:29)
--- NOTE | 2017-11-20 08:48 | HHI.CCPN ---
Subjective Remarks/Hospital Course 66-year-old morbidly obese female with history of COPD on 3 L nasal cannula home O2, obesity hypoventilation syndrome, CHF, CAD (on plavix) and sleep apnea admitted with shortness of breath and hypoxia. Per chart review the patient's sister states that recently, CPAP machine has not been working and that patient had been complaining about it. Last night, machine was malfunctioning again, and patient awakened in the middle of the night with SOB. She was found to be hypoxemic with saturation in 70s-80s. He was initially placed on BiPAP with no improvement and worsening hypercarbic respiratory acidosis. Patient was intubated for acute hypercapnic respiratory failure in the ICU. 11/10: The patient remains intubated and sedated. Endotracheal tube retracted several centimeters bilateral breath sounds equal. Patient continues on propofol and fentanyl for sedation. 11/11: Afebrile. No acute issues overnight. The patient's glucose level remains elevated. Moderate dose insulin sliding scale initiated. Discussion with the daughter, requesting definition of goals of care. Palliative care has been consult. CPAP trials were initiated, were unsuccessful today. Pulmonology has been consulted. 11/12: Afebrile. The patient was placed on high dose sliding scale last night, glucose levels remain elevated. Levimir 10u BID added to medication regimen. The patient has been placed on Precedex to facilitate ventilator weaning process and tolerated CPAP for approximately 3 hours last evening. 11/13: Afebrile. This a.m. the patient was noted to be hypotensive after CPAP trials and reinitiation of Precedex infusion. MAP was noted to be in the 50's. Patient is noted to having large bowel movements. The patient received bolus fluids of 1 L with resolution. The patient is awake nodding head to yes and no questions. 11/14: The patient continues on CPAP trials this afternoon. The patient continues on the Precedex infusion for ventilator synchrony currently at 0.6 continue to titrate upward. The patient is alert oriented attempting to talk. CPAP trials greater than 1 hour at this time. No further episodes of hypotension. 11/15: still on cpap. too somnolent and failing SBT trials. 11/16: T-max 100. Currently 99.4. Seizure yesterday. Currently on PSV trial at 35%. Follows commands. No bowel movement. Tube feeds at goal at 50 cc an hour 11/17: Afebrile. No bowel movement 3 days. Arousable on dexmedetomidine drip at 1.5 mg/kg/min. No new seizure activity. EEG and MRI brain reviewed. No acute findings. 11/18: No events overnight. Patient remains intubated, on Precedex infusion at 1.5, lethargic but very easily arousable. She is currently on pressure support 05/06, with respiratory rate in the mid 20s. She is negative almost 2 L over the last 24 hours. T-max of 99.7. 11/19: No events over the night. Patient tolerated SBT yesterday however tidal volumes in the mid 200s with respiratory rate consistently in the high 20s therefore extubation was held. This morning she is more awake, Precedex decreased to 1, on 14/10 with improved tidal volumes in the 4-500 range with respiratory rate less than 20. T-max of 99.1, I/O 3858/3400. 11/20: Patient was successfully extubated to BiPAP yesterday afternoon. Overnight she was placed back on BiPAP but this morning around 4 AM due to vomiting she was taken off and placed on nasal cannula. This morning patient is lethargic, arousable, following some commands. She is tachycardic and diaphoretic. Febrile. Review of systems is unobtainable due to patient's mental status Objective Vital Signs Date Time Temp Pulse Resp B/P (MAP) Pulse Ox O2 Delivery O2 Flow Rate FiO2 11/20/17 08:29 95 Aerosol Mask 8.00 11/20/17 06:00 130 11/20/17 04:00 99.9 43 112/56 (74) 11/20/17 00:31 35 Intake and Output 11/20/17 11/20/17 11/21/17 08:00 16:00 00:00 Output Total 950 ml Balance -950 ml Result Diagram: 11/20/17 0407 11/20/177 Other Results Laboratory Tests Test 11/19/17 11:32 Blood Gas Puncture Site RT RADIAL Blood Gas Patient Temperature 98.6 Blood Gas HCO3 24 mmol/L (22-26) Blood Gas Base Excess 0.4 mmol/L (-2-2) Blood Gas Oxygen Saturation 92 % (90-100) Arterial Blood pH 7.43 (7.380-7.420) Arterial Blood Partial Pressure CO2 37 mmHg (38-42) Arterial Blood Partial Pressure O2 79 mmHg (61-120) Arterial Blood Oxygen Content 14.0 Vol % (12.0-20.0) Arterial Blood Carboxyhemoglobin 1.0 % (0-4) Arterial Blood Methemoglobin 1.3 % (0-2) Blood Gas Hemoglobin 10.7 G/DL (12.0-16.0) Oxygen Delivery Device VENTILATOR Blood Gas Ventilator Setting CPAP+5/PS+15 Blood Gas Inspired Oxygen 35 % Imaging Last 24 hours Impressions Chest X-Ray 11/18/17599 Signed Impressions: CONCLUSION: Stable single view the chest. Persistent perihilar vascular congestion with enl arged heart. Abdomen X-Ray 11/18/17599 Signed Impressions: CONCLUSION: The NG tube in good position. Bowel gas pattern is unremarkable Last Impressions Chest X-Ray 11/17/17 06 Signed Impressions: CONCLUSION: Small lung volumes and a prominent cardiac silhouette are unchanged. Brain MRI 11/16/17 0000 Signed Impressions: CONCLUSION: 1. 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 No recent infarct. No mass effect or shift. No hydrocephalus. Mild to moderate chronic ischemic changes in the periventricular white matter also appear similar to prior CT. Objective Remarks GENERAL: Elderly lady, obese, ill-appearing, lethargic, arousable. SKIN: No rashes appreciated. No cyanosis. HEAD: Normocephalic. EYES: Pupils equal and reactive. Sclerae anicteric. NECK: Neck is supple, no rigidity. Trachea is midline. No neck vein distention. Dry MM. CARDIOVASCULAR: Regular S1 and S2, distant, no murmurs, rubs or gallops appreciated. RESPIRATORY: Scattered coarse breath sounds bilateral. Shallow breathing, tachypneic. No wheezes. GASTROINTESTINAL: Abdomen soft, appears non-tender, obese. Bowel sounds are normal. MUSCULOSKELETAL: No edema. Right lower extremity below the knee with significant atrophy with dressing on wound C/D/I. NEURO EXAM: Lethargic but arousable, follows some simple commands. A/P Problem List: (1) HCAP (healthcare-associated pneumonia) ICD Code: J18.9 - Pneumonia, unspecified organism Assessment and Plan Neuro/Psych: Depression disorder NOS Chronic benzodiazepine use Chronic opioid use Peripheral neuropathy Anxiety Seizure disorder NOS Hold sertraline 100 mg daily/home medication resumed for depression Hold Lorazepam 0.5 mg every 8 hours/medication anxiety Seizure precautions EEG 11/16 - sleep state. Rare tiny sharp transient. Brief episodes of very minimal encephalopathy. No active seizures. Clinical correlation. MRI brain 11/16 -remote small infarct in the right parietal lobe similar in size to a prior CT from September 2016. No recent infarct. No mass effect or shift. No hydrocephalus. Mild to moderate chronic ischemic changes in the periventricular white matter also appear similar to prior CT Respiratory: Acute on chronic respiratory failure -extubated History of HCAP 08/27/17 Healthcare associated pneumonia - MRSA COPD OHS/ ARSEN Place patient on BiPAP 14/10 Check ABG Bronchodilator Chest x-ray Pulmonology following Cardiovascular: Chronic diastolic heart failure History of dyslipidemia History of right iliac artery stent placement Essential hypertension CAD Hold furosemide 40 mg/day and monitor urine output Hold clopidogrel 75 mg daily 81 mg daily and aspirin. Continue atorvastatin 40 mg daily for dyslipidemia Antihypertensives currently on hold at this time, resume when clinically indicated These include isosorbide mononitrate 30 mg daily and lisinopril 5 mg by mouth daily Renal: CYNTHIA -resolved -- Strict I/Os. Maintain Wise catheter FEN/GI: Mild protein calorie malnutrition with hypoalbuminemia Diarrhea resolved now with constipation Hypokalemia -resolved Due to vomiting NG tube was placed -initially dark aspirate no bloody Hold aspirin, Plavix and heparin Pantoprazole bolus followed by continuous infusion GI consult Repeat CBC at 12 PM Replete electrolytes per protocol Tube feeds Vital Hi Protein @ 50cc/hr/per nutrition recommendations Hold famotidine 20 mg daily for GI prophylaxis while on pantoprazole Docusate sodium 100 mg twice daily/senna 820 mg twice daily for bowel regimen Heme/ID: Microcytic anemia Bacteremia gram-positive likely contaminant HCAP [id number] Had one episode of low-grade fever Repeat blood cultures UA and urine culture and chest x-ray If fever persists or hemodynamic instability we will start broad-spectrum antibiotics and check lactic acid Currently on vancomycin 11/09-blood culture staph hemolyticus 11/10 sputum culture-MRSA repeat 11/14 pending Continue Vanco, followed by ID Endocrine: Diabetes mellitus Sliding scale insulin per ICU protocol. Increased to high dose sliding scale Novolog every 4 hours with insulin detemir 15 units subcu twice daily MSK: Elevated BMI 54.3 PT evaluate and treat range of motion Prophylaxis: GI Prophylaxis -as above DVT Prophylaxis- SCDs Lines: Peripheral IVs 2. Central line if indicated No family present at bedside. Patient is an alternative code -no intubation Level 2 follow-up Jonathan Centeno MD Nov 20, 2017 08:48
[2017-11-20] MEDS: INSULIN DETEMIR 100 UNITS/ML VIAL SQ SCH (09:00)
[2017-11-20] MEDS: SENNOSIDES SYRUP 8.8 MG/5 ML CUP PO SCH (09:00)
[2017-11-20] MEDS: SERTRALINE HCL 100 MG TAB PO SCH (09:00)
[2017-11-20] MEDS: POLYETHYLENE GLYCOL 17 GM PKG PO SCH (09:00)
--- NOTE | 2017-11-20 09:43 | RADRPT ---
EXAM DATE: 11/20/2017 9:24 AM EDT AGE/SEX: 66 years / Female INDICATIONS: Fever CLINICAL DATA: This is the patient's initial encounter. Patient reports that signs and symptoms have been present for 2 weeks and indicates a pain score of Nonresponsive. MEDICAL/SURGICAL HISTORY: . Diabetes mellitus type II. Hypertension. . Hysterectomy. Jw phil section [place] [facility] [place]. . FINDINGS: The heart is enlarged. There are small bilateral effusions and bilateral infiltrates. There are conso lidative changes in the left lower lobe with air bronchograms suggesting pneumonia. The patient has b een extubated since previous of 11/19/2017 There is a nasogastric tube in good position. CONCLUSION: Left basilar consolidation concerning for pneumonia. Patchy infiltrates bilaterally. The patient has been extubated since prior exam. Electronically signed by: Jose Arthur MD 11/20/2017 9:41 AM EDT
[2017-11-20] MEDS ORDERED: PANTOPRAZOLE INJ 80 MG in SODIUM CHLORIDE 0.9% INJ 100 ML IV SCH (10:00)
[2017-11-20] MEDS ORDERED: PANTOPRAZOLE INJ 80 MG in SODIUM CHLORIDE 0.9% INJ 35 ML IV ONE (10:00)
[2017-11-20] MEDS: MUPIROCIN 2% OINT 1 APPLIC/GM SYR EACH NARE SCH (10:14)
[2017-11-20] MEDS: SODIUM CHLORIDE 0.9% FLUSH 10 ML FLUSH IV FLUSH SCH (10:14)
--- NOTE | 2017-11-20 10:17 | PD.CONS ---
HPI History of Present Illness This is a 66 year old F with PMH significant for COPD, CAD, CHF, sleep apnea who presented to the hospital from [facility] on 11/09 with SOB and hypoxia, CPAP machine had reportedly not been working and pt was found to have O2 sats of 70s-80s on arrival. Pt was intubated and admitted to ICU, she was extubated to BiPAP yesterday afternoon. Our service has been consulted to evaluate pt for reports of BRB in emesis and coffee ground emesis that began early this morning. On my exam pt is extremely lethargic and does not open her eyes, she remains on BiPAP, all history obtained through chart review and discussion with RN. Pt now with NG tube to suction and continues to drain coffee ground emesis. Pt was on Plavix, ASA, and Heparin which were discontinued this morning. Protonix gtt has been started and KUB is pending. No previous EGD or colonoscopy seen in medical records. (Lara Ramos) PFSH Past Medical History Rheumatoid arthritis Anxiety Depression COPD-chronic O2 3 L (PFT 07/2016 notes severe restrictive disease) CHF CAD Diabetes Diverticulitis GERD Glaucoma Hypertension Encephalopathy PA Sleep apnea Obesity . Past Surgical History Cataract surgery Right artery IIliac stent Partial hysterectomy section Cyst removal breast right . (Lara Ramos) Coded Allergies: *MDRO Multi-Drug Resistant Organism (Verified Adverse Reaction, Unknown, MRSA, 11/09/17) MRSA PCR positive - 06/28/2015 & 06/03/16 Family History Mother recently -he had diabetes mellitus Father-diabetes mellitus and hypertension . (Lara Ramos) Review of Systems Unable to obtain, pt lethargic and on BiPAP (Lara Ramos) GI Exam Vitals I&O Vital Signs Date Time Temp Pulse Resp B/P (MAP) Pulse Ox O2 Delivery O2 Flow Rate FiO2 11/20/17 08:39 94 40 11/20/17 08:29 95 Aerosol Mask 8.00 11/20/17 06:00 130 11/20/17 04:00 137 11/20/17 04:00 99.9 137 43 112/56 (74) 76 11/20/17 03:56 96 Nasal Cannula 5.00 11/20/17 02:00 117 11/20/17 00:31 97 35 11/20/17 00:00 121 11/20/17 00:00 100.0 121 31 84/55 (65) 96 11/19/17 22:00 119 11/19/17 20:00 129 11/19/17 20:00 99.6 129 36 89/61 (70) 88 11/19/17 20:00 95 35 11/19/17 20:00 95 BiPAP 35 11/19/17 18:00 111 11/19/17 16:00 95 11/19/17 16:00 98.1 95 27 104/55 (71) 99 11/19/17 15:12 99 35 11/19/17 14:00 87 11/19/17 12:20 95 BiPAP/CPAP 35 11/19/17 12:00 74 11/19/17 12:00 35 11/19/17 12:00 97.5 74 25 137/81 (99) 100 I/O 11/19/17 11/19/17 11/19/17 11/20/17 11/20/17 11/20/17 07:00 15:00 23:00 07:00 15:00 23:00 Intake Total 1549 ml 665 ml 1500 ml Output Total 1800 ml 1900 ml 950 ml Balance -251 ml -1235 ml 550 ml IV Total 770 ml 520 ml 1500 ml Tube Feeding 679 ml 85 ml Other 100 ml 60 ml Output Urine Total 1800 ml 1900 ml 950 ml # Bowel Movements 0 1 Imaging Last Impressions Chest X-Ray 11/20/17 0000 Signed Impressions: CONCLUSION: Left basilar consolidation concerning for pneumonia. Patchy infiltrates bilaterally. The patient has been extubated since prior exam. Abdomen X-Ray 11/18/17 0600 Signed Impressions: CONCLUSION: The NG tube in good position. Bowel gas pattern is unremarkable Brain MRI 11/16/17 0000 Signed Impressions: CONCLUSION: 1. 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 No recent infarct. No mass effect or shift. No hydrocephalus. Mild to moderate chronic ischemic changes in the periventricular white matter also appear similar to prior CT. Laboratory Test 11/19/17 11:32 11/20/17 04:07 Blood Gas Puncture Site RT RADIAL Blood Gas Patient Temperature 98.6 Blood Gas HCO3 24 mmol/L Blood Gas Base Excess 0.4 mmol/L Blood Gas Oxygen Saturation 92 % Arterial Blood pH 7.43 Arterial Blood Partial Pressure CO2 37 mmHg Arterial Blood Partial Pressure O2 79 mmHg Arterial Blood Oxygen Content 14.0 Vol % Arterial Blood Carboxyhemoglobin 1.0 % Arterial Blood Methemoglobin 1.3 % Blood Gas Hemoglobin 10.7 G/DL Oxygen Delivery Device VENTILATOR Blood Gas Ventilator Setting CPAP+5/PS+15 Blood Gas Inspired Oxygen 35 % White Blood Count 12.2 TH/MM3 Red Blood Count 4.77 MIL/MM3 Hemoglobin 10.4 GM/DL Hematocrit 35.5 % Mean Corpuscular Volume 74.5 FL Mean Corpuscular Hemoglobin 21.9 PG Mean Corpuscular Hemoglobin Concent 29.4 % Red Cell Distribution Width 17.8 % Platelet Count 404 TH/MM3 Mean Platelet Volume 8.9 FL Neutrophils (%) (Auto) 77.0 % Lymphocytes (%) (Auto) 13.6 % Monocytes (%) (Auto) 8.6 % Eosinophils (%) (Auto) 0.5 % Basophils (%) (Auto) 0.3 % Neutrophils # (Auto) 9.4 TH/MM3 Lymphocytes # (Auto) 1.7 TH/MM3 Monocytes # (Auto) 1.0 TH/MM3 Eosinophils # (Auto) 0.1 TH/MM3 Basophils # (Auto) 0.0 TH/MM3 CBC Comment DIFF FINAL Differential Comment Blood Urea Nitrogen 16 MG/DL Creatinine 0.77 MG/DL Random Glucose 150 MG/DL Total Protein 7.2 GM/DL Albumin 3.0 GM/DL Calcium Level 8.6 MG/DL Phosphorus Level 3.9 MG/DL Magnesium Level 1.8 MG/DL Alkaline Phosphatase 77 U/L Aspartate Amino Transf (AST/SGOT) 10 U/L Alanine Aminotransferase (ALT/SGPT) 22 U/L Total Bilirubin 1.0 MG/DL Sodium Level 139 MEQ/L Potassium Level 3.8 MEQ/L Chloride Level 104 MEQ/L Carbon Dioxide Level 23.2 MEQ/L Anion Gap 12 MEQ/L Estimat Glomerular Filtration Rate 91 ML/MIN Date/Time Source Procedure Growth Status 11/17/17 13:04 Blood Peripheral Aerobic Blood Culture - Preliminary NO GROWTH IN 2 DAYS Resulted 11/17/17 13:04 Blood Peripheral Anaerobic Blood Culture - Preliminary NO GROWTH IN 2 DAYS Resulted 11/14/17 18:00 Sputum Endotracheal Gram Stain - Final Complete 11/14/17 18:00 Sputum Endotracheal Sputum Culture - Final HEAVY GROWTH NORMAL RESPIRATORY GRUPO Complete Physical Examination HEENT: Normocephalic; atraumatic CHEST: Coarse BS bilaterally, shallow respirations, tachypneic, on BiPAP CARDIAC: Sinus tachycardia on monitor ABDOMEN: Morbidly obese, soft, bowel sounds active EXTREMITIES: BLE wasting SKIN: Normal; no rash; no jaundice. MUSIC CATALOGUER: Lethargic, does not open eyes during my exam (Lara Ramos) Assessment and Plan Plan Assessment: - Coffee ground emesis and BRB in emesis that began early this morning Pt is extremely lethargic and does not open her eyes, she remains on BiPAP, all history obtained through chart review and discussion with RN. Pt now with NG tube to suction and continues to drain coffee ground emesis. Pt was on Plavix, ASA, and Heparin which were discontinued this morning. Protonix gtt has been started and KUB is pending. No previous EGD or colonoscopy seen in medical records. - Hypoxic on arrival 11/09- intubated and extubated to BiPAP yesterday, pt with shallow tachypneic respiration on BiPAP during my exam Discussed with Dr. Centeno, project asst, pt is a DNI, she is too unstable for EGD at this time, we will continue to monitor and provide supportive care Plan: Protonix gtt NGT to LIWS DNI- can not do EGD with her current respiratory status Monitor H/H Transfuse as needed Further recommendations based on clinical course Pt has been seen and examined by myself and Dr. Ward and this note is written on her behalf (Lara Ramos) Physician Comments seen, examined agree with above consider hospice (Maribell Ward MD) Lara Ramos Nov 20, 2017 10:17 Maribell Ward MD Nov 20, 2017 19:10
[2017-11-20] MEDS: DOCUSATE SODIUM 100 MG/10 ML UDC PO SCH (10:18)
[2017-11-20] MEDS: LORATADINE 10 MG TAB PO SCH (10:18)
[2017-11-20] MEDS: FERROUS SULFATE 325 MG (65 MG ELEMENTAL IRON) TAB PO SCH (10:18)
[2017-11-20] MEDS: LACTULOSE SYRUP 20 GM/30 ML CUP PO SCH (10:18)
--- NOTE | 2017-11-20 10:19 | RADRPT ---
EXAM DATE: 11/20/2017 9:28 AM EDT AGE/SEX: 66 years / Female INDICATIONS: NG tube. CLINICAL DATA: This is the patient's initial encounter. Patient reports that signs and symptoms have been present for 1 day and indicates a pain score of Nonresponsive. MEDICAL/SURGICAL HISTORY: . HISTORY: Diabetes mellitus type II. Hypertension. . Hysterectom y. section COMPARISON: No prior exams available for comparison. FINDINGS: Limited single view of the abdomen is provided. No nasogastric tube is identified. Single view chest to assess for the tip of the tube would be warranted. CONCLUSION: The nasogastric tube is not identified within the lower chest or upper abdomen Electronically signed by: Jose Arthur MD 11/20/2017 10:17 AM EDT
[2017-11-20] MEDS: NYSTATIN 100,000 UNIT/GM CREAM 15 GM TOPICAL SCH (10:22)
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
[2017-11-20 12:27] LABS: BACTERIA, URINE OCC /hpf; BILIRUBIN, URINE NEG (NEG); BLOOD, URINE MOD (NEG); GLUCOSE,URINE >=500 mg/dL (NEG); HYALINE CAST, URINE 18 /lpf (RARE); KETONE, URINE 20 mg/dL (NEG); MUCUS URINE FEW /lpf (OCC); NITRITE,URINE NEG (NEG); SQUAMOUS EPITHELIAL CELL URINE 1 /hpf (0-5); URINE COLOR YELLOW (YELLW/STRAW); URINE LEUKOCYTE ESTERASE NEG (NEG)
--- NOTE | 2017-11-20 12:46 | HHI.FPPN ---
Subjective Remarks 66 yo female with many comorbidities including CHF, COPD, morbid obesity, diabetes admitted for acute hypoxic respiratory failure requiring intubation and ventilatory support, now extubated. Overnight had episode of coffee ground emesis and hypotension responsive to fluids. Nausea improved with medication. States she is not having chest pain, breathing is moderately difficult. Expresses interest in hospice services. (Eddie Partida MD R2) Objective Vitals Vital Signs Date Time Temp Pulse Resp B/P (MAP) Pulse Ox O2 Delivery O2 Flow Rate FiO2 11/20/17 12:00 122 11/20/17 12:00 99.2 122 65 124/61 (82) 90 11/20/17 10:00 124 11/20/17 08:39 94 40 11/20/17 08:29 95 Aerosol Mask 8.00 11/20/17 08:00 101.1 139 66 118/70 (86) 88 11/20/17 08:00 139 11/20/17 06:00 130 11/20/17 04:00 137 11/20/17 04:00 99.9 137 43 112/56 (74) 76 11/20/17 03:56 96 Nasal Cannula 5.00 11/20/17 02:00 117 11/20/17 00:31 97 35 11/20/17 00:00 121 11/20/17 00:00 100.0 121 31 84/55 (65) 96 11/19/17 22:00 119 11/19/17 20:00 129 11/19/17 20:00 99.6 129 36 89/61 (70) 88 11/19/17 20:00 95 35 11/19/17 20:00 95 BiPAP 35 11/19/17 18:00 111 11/19/17 16:00 95 11/19/17 16:00 98.1 95 27 104/55 (71) 99 11/19/17 15:12 99 35 11/19/17 14:00 87 I/O 11/19/17 11/19/17 11/19/17 11/20/17 11/20/17 11/20/17 07:00 15:00 23:00 07:00 15:00 23:00 Intake Total 1549 ml 665 ml 1500 ml Output Total 1800 ml 1900 ml 950 ml Balance -251 ml -1235 ml 550 ml IV Total 770 ml 520 ml 1500 ml Tube Feeding 679 ml 85 ml Other 100 ml 60 ml Output Urine Total 1800 ml 1900 ml 950 ml # Bowel Movements 0 1 (Eddie Partida MD R2) Result Diagram: 11/20/1740611/20/17 040 Imaging Last Impressions Chest X-Ray 11/20/17 0000 Signed Impressions: CONCLUSION: Left basilar consolidation concerning for pneumonia. Patchy infiltrates bilaterally. The patient has been extubated since prior exam. Abdomen X-Ray 11/20/17 0000 Signed Impressions: CONCLUSION: The nasogastric tube is not identified within the lower chest or upper abdomen Brain MRI 11/16/17 0000 Signed Impressions: CONCLUSION: 1. 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 No recent infarct. No mass effect or shift. No hydrocephalus. Mild to moderate chronic ischemic changes in the periventricular white matter also appear similar to prior CT. Objective Remarks CONSTITUTIONAL/GEN: Morbidly obese woman lying in bed with BiPAP in place. On soft restraints. Fatigued and appearing mildly uncomfortable , but NAD. LUNGS: Referred upper airway sounds, otherwise CTAB. CARDIOVASCULAR: Heart sounds distant due to body habitus. NRRR by telemetry. GI/ABD: obese and protuberant. SKIN: color normal, no rashes noted. HEME/LYMPH: no bruising, petechia. MUSC: Right lower extremity is bandaged w/gauze and shows deformity of the right toes, muscle atrophy and hyperpigmentation of the leg. Some hyperpigmentation seen at the ankle of the left foot. Stable from prior exams. NEURO: Awake, alert. Oriented to person and time. Thought she was in a fci at first. Cooperative, responds to yes/no questioning (speaking in full sentences difficult due to breathing). Medications and IVs Current Medications Medications (Trade) Dose Ordered Sig/Giovanna Route Start Time Stop Time Status Last Admin (NS Flush) 2 ml BID IV FLUSH 11/09/17 21:00 11/20/17 10:14 (NS Flush) 2 ml UNSCH PRN IV FLUSH 11/09/17 12:15 (Symbicort 160-4.5 Mcg Inh) 2 puff Q12HR INH 11/09/17 21:00 Future Hold 11/16/17 07:49 (Heparin Inj) 5,000 units Q12H SQ 11/09/17 13:00 Future Hold 11/20/17 00:47 (Lipitor) 40 mg HS PO 11/09/17 21:00 11/18/17 20:02 (Plavix) 75 mg DAILY PO 11/10/17 09:00 Future Hold 11/19/17 08:48 (Lasix) 40 mg DAILY PO 11/10/17 09:00 Future Hold 11/19/17 08:48 (Neurontin) 300 mg BID PO 11/09/17 21:00 Future Hold (Claritin) 10 mg DAILY PO 11/10/17 09:00 11/20/17 10:18 (Ativan) 0.5 mg Q8H PRN PO 11/09/17 13:00 11/16/17 15:52 (Mycostatin Cream) 1 applic BID TOPICAL 11/09/17 21:00 11/20/17 10:22 (Zoloft) 100 mg DAILY PO 11/10/17 09:00 Future Hold 11/19/17 08:48 Non-Formulary Medication 1 drop BID EACH EYE 11/09/17 21:00 11/18/17 20:01 (Zofran Odt) 4 mg Q6HR PRN PO 11/09/17 13:00 (Tylenol) 650 mg Q6H PRN PO 11/09/17 13:00 11/11/17 08:08 (Ferrous Sulfate) 325 mg BID PO 11/09/17 21:00 11/20/17 10:18 ([facility] [place] Nursing Information) Patient in critical care unit? Ass... Q361D .XX 11/09/17 20:45 (Peridex 0.12% Liq) 15 ml BID@08,20 MT 11/10/17 08:00 11/19/17 08:47 (Aspirin Chew) 81 mg DAILY PO 11/11/17 09:00 Future Hold 11/19/17 08:48 (Madeline-Colace) 1 tab BID PO 11/12/17 09:00 Future Hold 11/13/17 07:58 (Milk Of Magnesia Liq) 30 ml Q12H PRN PO 11/12/17 09:00 (Senokot) 17.2 mg Q12H PRN PO 11/12/17 09:00 (Dulcolax Supp) 10 mg DAILY PRN RECTAL 11/12/17 09:00 (Lactulose Liq) 30 ml DAILY PRN PO 11/12/17 09:00 (D50w (Vial) Inj) 50 ml UNSCH PRN IV PUSH 11/12/17 09:15 (Glucagon Inj) 1 mg UNSCH PRN OTHER 11/12/17 09:15 (Levemir Inj) 15 units Q12HR SQ 11/13/17 09:00 11/19/17 20:28 (Xanax) 0.5 mg Q6H PRN PO 11/14/17 17:15 Future Hold 11/18/17 22:15 (Ativan Inj) 2 mg Q15M PRN IV PUSH 11/15/17 19:00 11/16/17 15:52 (Bactroban Nasal 2% Oint) 1 applic Taper BID EACH NARE 11/16/17 21:00 11/12/18 20:59 11/20/17 10:14 (Albuterol Neb) 2.5 mg Q2HR NEB PRN NEB 11/16/17 12:15 (Pulmicort Respule Neb) 0.5 mg Q12HR NEB NEB 11/16/17 20:00 11/20/17 08:29 (Colace Liq) 100 mg Q12HR PO 11/16/17 21:00 11/20/17 10:18 (Senna Liq) 8.8 mg BID PO 11/16/17 21:00 11/18/17 09:00 (NovoLOG SUPPLEMENTAL SCALE) 1 Q4HR SQ 11/16/17 16:00 11/19/17 12:31 (Miralax) 17 gm BID PO 11/17/17 09:00 11/19/17 08:56 (Lactulose Liq) 30 ml DAILY PO 11/17/17 09:00 11/20/17 10:18 (Percocet 5-325 Mg) 1 tab Q6H PRN PO 11/18/17 16:15 11/18/17 23:28 (Duoneb Neb) 1 ampule Q4HR NEB NEB 11/20/17 00:00 11/20/17 08:29 Pantoprazole Sodium 80 mg/ Sodium Chloride 100 ml @ 10 mls/hr CONTINUOUS IV 11/20/17 10:00 11/20/17 10:15 (Eddie Partida MD R2) A/P Assessment and Plan 66 y/o F w/hx of respiratory failure requiring intubation, COPD, CHF, and morbid obesity presenting with: (Eddie Partida MD R2) Attending Attestation Patient seen and examined. Case reviewed and discussed with the resident team. Agree with plan of care as discussed with me and documented in the resident note. (Brandi Bush MD) Problem List: (1) Respiratory failure ICD Codes: J96.90 - Respiratory failure, unspecified, unspecified whether with hypoxia or hypercapnia Status: Acute Plan: Intubated (11/10-11/19) Blood cx (11/09) +staph Haemolyticus Sputum cx (11/10) MRSA + Repeat sputum culture 11/14 negative Repeat blood culture 11/17 no growth in 1 day Critical care consulted, appreciate assistance: Continue ventilator support with spontaneous breathing trials as tolerated ID consulted. Appreciate recs: Positive blood culture unlikely to be clinically relevant S/p 10 days IV vancomycin Zosyn DC'd (11/10-11/12) Pulm consulted, recs appreciated: con't current therapy, bronchodilator prn Palliative care consulted (multiple comorbidities and hospitalizations), appreciate assistance in coordination of care See palliative notes for details. At present goals overall aggressive. Primary team had discussion with patient yesterday 11/19 and changed code status as documented. Confirmed no intubation status again with patient today. With comorbidities and now GIB, hospice services would be medically appropriate if patient and family elect for this option. Discussed with patient who would be interested in hearing more about hospice services. Will place hospice consult for discussion. Dr. Brunner spoke with sister (health care surrogate) about this who supported Mrs. Page's decision. She will come see her sister so they can talk as a family. (2) Acute GI bleeding ICD Codes: K92.2 - Gastrointestinal hemorrhage, unspecified Plan: 11/19 had coffee ground emesis now stable NG tube at LIWS draining sanguinous fluid Hgb stable around 10.5 GI consulted PPI drip Monitor H/H (3) CHF (congestive heart failure) ICD Codes: I50.9 - CHF (congestive heart failure) Status: Chronic Plan: STABLE Takes home Lasix, lisinopril, isosorbide dinitrate PO Con't Lasix 40 mg daily Anti-hypertensives held at this time due to low BP (4) Leg wound, right ICD Codes: S81.801A - Leg wound, right Status: Chronic Plan: STABLE Hx of MRSA positive infxn Hx of childhood injury, on disability Wound ostomy consulted, appreciate recs (5) COPD (chronic obstructive pulmonary disease) ICD Codes: J44.9 - COPD (chronic obstructive pulmonary disease) Status: Chronic Plan: Home: Duonebs TID, Symbicort 2 puffs BID Currently intubated DuoNeb Q4H (6) Sleep apnea ICD Codes: G47.30 - Sleep apnea, unspecified Status: Chronic Plan: Requires CPAP while asleep at home Currently intubated; will resume CPAP if/when extubated (7) Diabetes mellitus ICD Codes: E11.9 - Type 2 diabetes mellitus without complications Status: Chronic Plan: Home: Novolog SS and lantus 10 units, sitagliptin 100 mg daily Bedside glucose hovering around 300 Keep glucose <180 High dose SSI Continue 15 units lantus BID (8) Sacral decubitus ulcer, stage II ICD Codes: L89.152 - Pressure ulcer of sacral region, stage 2 Plan: STABLE Pressure ulcer prevention Wound ostomy nurse consulted for recs, appreciate assistance (9) Chronic leg pain ICD Codes: M79.606 - Pain in leg, unspecified; G89.29 - Other chronic pain Plan: Home med oxycodone 5 mg and Gabapentin held to prevent further drowsiness and respiratory compromise (10) Coronary artery disease ICD Codes: I25.10 - Atherosclerotic heart disease of [place] coronary artery without angina pectoris Status: Chronic Plan: Con't home plavix and atorvastatin Hold ASA (11) Anxiety ICD Codes: F41.9 - Anxiety disorder, unspecified Plan: Con't home Ativan TID PRN (12) Depression ICD Codes: F32.9 - Major depressive disorder, single episode, unspecified Status: Chronic Plan: con't home zoloft daily (13) Iron deficiency anemia ICD Codes: D50.9 - Iron deficiency anemia, unspecified Status: Chronic Plan: Con't ferrous sulfate Laxatives and stool softeners PRN (14) FEN Plan: Fluids: none for now, careful to avoid fluid overload Electrolytes: none Nutrition: Tube feeds @50 mls/hr, high protein DVT prophy: Heparin GI prophy: Pepcid Dispo: Pending clinical course, hospice discussion with patient and family (Partida,Eddie MD R2) Problem Qualifiers (1) Respiratory failure: Qualified Codes: J96.01 - Acute respiratory failure with hypoxia (2) CHF (congestive heart failure): Qualified Codes: I50.9 - Heart failure, unspecified (3) Leg wound, right: Qualified Codes: S81.801A - Unspecified open wound, right lower leg, initial encounter (4) COPD (chronic obstructive pulmonary disease): Qualified Codes: J44.9 - Chronic obstructive pulmonary disease, unspecified (5) Sleep apnea: Qualified Codes: G47.30 - Sleep apnea, unspecified (6) Diabetes mellitus: Qualified Codes: E11.8 - Type 2 diabetes mellitus with unspecified complications (7) Chronic leg pain: Qualified Codes: M79.604 - Pain in right leg; M79.605 - Pain in left leg; G89.29 - Other chronic pain (8) Coronary artery disease: (9) Depression: Qualified Codes: F32.9 - Major depressive disorder, single episode, unspecified Eddie Partida MD R2 Nov 20, 2017 12:45 Brandi Bush MD Nov 20, 2017 15:22
[2017-11-20 13:50] LABS: AUTOMATED NEUTROPHIL # 14.8 TH/MM3 (1.8-7.7); BASOPHIL # 0.1 TH/MM3 (0-0.2); BASOPHIL % 0.4 % (0.0-2.0); EOSINOPHIL % 0.1 % (0.0-4.0); HEMATOCRIT 39.8 % (35.0-46.0); HEMOGLOBIN 11.5 GM/DL (11.6-15.3); LYMPH % 4.2 % (9.0-44.0); LYMPHOCYTE # 0.7 TH/MM3 (1.0-4.8); MEAN CELL VOLUME 75.2 FL (80.0-100.0); MEAN CORPUSCULAR HEMOGLOBIN 21.8 PG (27.0-34.0); MEAN PLATELET VOLUME 9.1 FL (7.0-11.0); MONOCYTE # 0.6 TH/MM3 (0-0.9); NEUT % 91.3 % (16.0-70.0); PLATELET COUNT 484 TH/MM3 (150-450); RED BLOOD COUNT 5.28 MIL/MM3 (4.00-5.30); RED CELL DISTRIBUTION WIDTH 17.9 % (11.6-17.2); WHITE BLOOD COUNT 16.2 TH/MM3 (4.0-11.0)
[2017-11-20 14:08] LABS: MEAN CORPUSCULAR HGB CONC 28.9 % (32.0-36.0)
[2017-11-20 14:40] LABS: BANDS 2 % (0-6); LYMPHOCYTES 9 % (9-44); MONOCYTES 7 % (0-8); MYELOCYTES 1 % (0-0); NEUTROPHIL # MANUAL DIFF 13.6 TH/MM3 (1.8-7.7); POLYS (SEG NEUTROPHILS) 81 % (16-70)
[2017-11-20 14:41] LABS: OVALOCYTES 1+ (NORMAL); TEARDROP RBCS 1+ (NORMAL)
[2017-11-20] MEDS ORDERED: ACETAMINOPHEN 1000 MG/100 ML 65 ML IV ONE (15:00)
[2017-11-20] MEDS ORDERED: MORPHINE SULFATE 4 MG/ML INJ IV PUSH PRN (15:30)
--- NOTE | 2017-11-20 15:56 | HHI.PR ---
Subjective Remarks OBTUNDED OFF VENT SUPPORT NO SOB NOW DNR Objective Vital Signs Date Time Temp Pulse Resp B/P (MAP) Pulse Ox O2 Delivery O2 Flow Rate FiO2 11/20/17 12:43 93 40 11/20/17 12:00 122 11/20/17 12:00 99.2 122 65 124/61 (82) 90 11/20/17 10:00 124 11/20/17 08:39 94 40 11/20/17 08:29 95 Aerosol Mask 8.00 11/20/17 08:00 101.1 139 66 118/70 (86) 88 11/20/17 08:00 139 11/20/17 06:00 130 11/20/17 04:00 137 11/20/17 04:00 99.9 137 43 112/56 (74) 76 11/20/17 03:56 96 Nasal Cannula 5.00 11/20/17 02:00 117 11/20/17 00:31 97 35 11/20/17 00:00 121 11/20/17 00:00 100.0 121 31 84/55 (65) 96 11/19/17 22:00 119 11/19/17 20:00 129 11/19/17 20:00 99.6 129 36 89/61 (70) 88 11/19/17 20:00 95 35 11/19/17 20:00 95 BiPAP 35 11/19/17 18:00 111 11/19/17 16:00 95 11/19/17 16:00 98.1 95 27 104/55 (71) 99 I/O 11/19/17 11/19/17 11/19/17 11/20/17 11/20/17 11/20/17 06:59 14:59 22:59 06:59 14:59 22:59 Intake Total 1549 ml 665 ml 1500 ml Output Total 1800 ml 1900 ml 950 ml Balance -251 ml -1235 ml 550 ml IV Total 770 ml 520 ml 1500 ml Tube Feeding 679 ml 85 ml Other 100 ml 60 ml Output Urine Total 1800 ml 1900 ml 950 ml # Bowel Movements 0 1 Result Diagram: 11/20/17 1219 11/20/17 0407 Objective Remarks GENERAL: SKIN: Warm and dry. HEAD: Atraumatic. Normocephalic. EYES: Pupils equal and round. No scleral icterus. No injection or drainage. ENT: No nasal bleeding or discharge. Mucous membranes pink and moist. NECK: Trachea midline. No JVD. CARDIOVASCULAR: Regular rate and rhythm. RESPIRATORY: No accessory muscle use. Clear to auscultation. Breath sounds equal bilaterally. GASTROINTESTINAL: Abdomen soft, non-tender, nondistended. Hepatic and splenic margins not palpable. MUSCULOSKELETAL: Extremities without clubbing, cyanosis, or edema. No obvious deformities. NEUROLOGICAL: Awake and alert. No obvious cranial nerve deficits. Motor grossly within normal limits. Five out of 5 muscle strength in the arms and legs. Normal speech. PSYCHIATRIC: Appropriate mood and affect; insight and judgment normal. Assessment and Plan Assessment and Plan IMPRESION RESP FAILURE COPD ARSEN/CSA CHF MORBID OBESITY PLAN O2/PAP NEEDED BRONCHODILATOR THERAPY INCREASE ACTIVITY DNR Viktoria Blum MD Nov 20, 2017 15:56
[2017-11-20] MEDS ORDERED: ARTIFICIAL TEARS OPTH SOLN 15 ML BTL EACH EYE SCH (21:00)
== END 2017-11-20 19:07 | disposition hospice, inpatient (51) | DRG 207 ==
LOC: NEPC 09:27 → NEDA 11:43 → HIMN 18:45
PROVIDERS: ADMIT Family Medicine; ATTEND Family Medicine
PROC: 5A09357 Assistance with Respiratory Ventilation, Less than 24 Consecutive Hours, Continuous Positive Airway Pressure (ICD-10-PCS; principal; 2017-11-09)
PROC: 5A1955Z Respiratory Ventilation, Greater than 96 Consecutive Hours (ICD-10-PCS; 2017-11-10)
PROC: 0BH17EZ Insertion of Endotracheal Airway into Trachea, Via Natural or Artificial Opening (ICD-10-PCS; 2017-11-10)
PROC: 5A09457 Assistance with Respiratory Ventilation, 24-96 Consecutive Hours, Continuous Positive Airway Pressure (ICD-10-PCS; 2017-11-19)
DX: J44.1 Chronic obstructive pulmonary disease with (acute) exacerbation (principal); J15.212 Pneumonia due to Methicillin resistant Staphylococcus aureus; N17.9 Acute kidney failure, unspecified; L89.152 Pressure ulcer of sacral region, stage 2; E87.2 Acidosis; J96.21 Acute and chronic respiratory failure with hypoxia; I13.0 Hypertensive heart and chronic kidney disease with heart failure and stage 1 through stage 4 chronic kidney disease, or unspecified chronic kidney disease; I50.32 Chronic diastolic (congestive) heart failure; I95.9 Hypotension, unspecified; E11.22 Type 2 diabetes mellitus with diabetic chronic kidney disease; J96.22 Acute and chronic respiratory failure with hypercapnia; Z68.43 Body mass index [BMI] 50.0-59.9, adult; E66.2 Morbid (severe) obesity with alveolar hypoventilation; K92.2 Gastrointestinal hemorrhage, unspecified; E44.1 Mild protein-calorie malnutrition; G40.89 Other seizures; E11.42 Type 2 diabetes mellitus with diabetic polyneuropathy; Z99.81 Dependence on supplemental oxygen; E87.5 Hyperkalemia; E11.65 Type 2 diabetes mellitus with hyperglycemia; Z78.1 Physical restraint status; J44.0 Chronic obstructive pulmonary disease with (acute) lower respiratory infection; K21.9 Gastro-esophageal reflux disease without esophagitis; M06.9 Rheumatoid arthritis, unspecified; F41.9 Anxiety disorder, unspecified; F32.9 Major depressive disorder, single episode, unspecified; I25.10 Atherosclerotic heart disease of native coronary artery without angina pectoris; E78.5 Hyperlipidemia, unspecified; H40.9 Unspecified glaucoma; N18.9 Chronic kidney disease, unspecified; Z66 Do not resuscitate; Z51.5 Encounter for palliative care; Y95 Nosocomial condition; E86.0 Dehydration; G89.29 Other chronic pain; M79.604 Pain in right leg; M79.605 Pain in left leg; D50.9 Iron deficiency anemia, unspecified; E87.6 Hypokalemia; J30.9 Allergic rhinitis, unspecified; K59.00 Constipation, unspecified; R00.0 Tachycardia, unspecified; R19.7 Diarrhea, unspecified; Z79.02 Long term (current) use of antithrombotics/antiplatelets; I25.2 Old myocardial infarction; Z87.891 Personal history of nicotine dependence; Z79.4 Long term (current) use of insulin; Z86.14 Personal history of Methicillin resistant Staphylococcus aureus infection; Z99.3 Dependence on wheelchair; Z95.820 Peripheral vascular angioplasty status with implants and grafts; Z79.51 Long term (current) use of inhaled steroids; Z79.891 Long term (current) use of opiate analgesic
CPT/HCPCS: 31500; 36600; 70551; 71045; 74018; 76937; 80048; 80053; 80202; 81001; 82550; 82565; 82805; 82948; 83605; 83735; 83880; 84100; 84145; 84484; 84520; 85007; 85025; 85027; 85379; 86403; 87040; 87070; 87077; 87086; 87147; 87186; 87205; 87641; 93005; 94002; 94003; 94640; 94664; 95819; 96374; C9113; J0131; J0330; J1644; J1815; J1940; J2060; J2250; J2270; J2543; J2930; J3010; J3370; J3480; J7030; J7040; J7050; J7120; J7626; P9045